=== PATIENT | male | born 1935 | race Caucasian/White ===

== ENCOUNTER → 2020-04-01 10:28 | Outpatient (BNVA) | payer MEDICARE, SELFPAY | PROVIDERS: PCP Internal Medicine Medical Oncology; Visit Provider Surgery Vascular Surgery | DX: I83.12 Varicose veins of left lower extremity with inflammation (principal) | CPT/HCPCS: 36482 ==

== ENCOUNTER 2020-04-04 12:22 | Outpatient (REF) | payer MEDICARE, SELFPAY ==
--- NOTE | 2020-04-04 | US_ITS ---
EXAMINATION: ULTRASOUND VENOUS DUPLEX LOWER EXTREMITY LEFT CLINICAL INFORMATION: Left leg pain and swelling status post Venaseal placement. COMPARISON: Bilateral venous study dated 02/29/2020. TECHNIQUE: Multiple 2-D grayscale and duplex Doppler ultrasound images of the veins of the left lower extremity were obtained. FINDINGS: Venaseal seen within the proximal aspect of the left greater saphenous vein approximately 2.8 cm from the saphenofemoral junction. There is no evidence for deep venous thrombosis in the left common femoral, profunda femoral, femoral, popliteal, peroneal and posterior tibial veins. There is no popliteal cyst. The subcutaneous soft tissues are unremarkable. IMPRESSION: 1. Venaseal seen in the proximal aspect of the left greater saphenous vein approximately 2.8 cm from the saphenofemoral junction. 2. No evidence for deep venous thrombosis in the visualized veins of the left lower cavity.
== END 2020-04-04 12:23 | disposition home or self-care (01) ==
LOC: HO.US 12:22
PROVIDERS: PCP Internal Medicine Medical Oncology; Visit Provider Surgery Vascular Surgery
DX: M79.605 Pain in left leg (principal); M79.89 Other specified soft tissue disorders; Z98.890 Other specified postprocedural states
CPT/HCPCS: 93971

== ENCOUNTER → 2020-04-21 10:42 | Outpatient (BNVA) | payer MEDICARE, SELFPAY | PROVIDERS: PCP Internal Medicine Medical Oncology; Visit Provider Surgery Vascular Surgery | DX: I83.11 Varicose veins of right lower extremity with inflammation (principal) | CPT/HCPCS: 99213 ==

== ENCOUNTER → 2020-05-20 07:44 | Outpatient (BNVA) | payer MEDICARE, SELFPAY | PROVIDERS: PCP Internal Medicine Medical Oncology; Referring Provider Internal Medicine Medical Oncology; Visit Provider Surgery Vascular Surgery | DX: I83.11 Varicose veins of right lower extremity with inflammation (principal) | CPT/HCPCS: 36482 ==

== ENCOUNTER 2020-05-23 08:32 | Outpatient (REF) | payer MEDICARE, SELFPAY ==
--- NOTE | 2020-05-23 | US_ITS ---
EXAMINATION: US VENOUS ULTRASOUND WITH DOPPLER LOWER EXTREMITY, RIGHT CLINICAL INFORMATION: Pain and swelling. Post venoseal procedure. COMPARISON: Previous exam most recent April [id number] TECHNIQUE: Ultrasound of the deep veins is performed from the hip to the calf with compression sonography and color and pulse Doppler assessment. Spectral analysis with color-flow imaging is performed. FINDINGS: There is normal venous compression and respiratory variation and augmented flow. The visualized common femoral vein, superficial femoral vein, profunda femoral vein, popliteal vein, and the trifurcation region shows no evidence of deep venous thrombosis. There is no significant popliteal fossa cyst. There is echogenic material seen in the right greater saphenous vein compatible with previous venoseal procedure. This is 2.9 cm from the saphenofemoral junction. This is similar to previous exam. US/US venous duplex LE RT IMPRESSION: No DVT demonstrated in the right lower extremity.
[2020-05-23 10:28] LABS: MANUAL DIFF FLAG NO
[2020-05-23 10:45] LABS: Basophils Absolute Auto 0.1 X10*3/uL (0.0-0.2); Basophils Percent Auto 0.5 % (0-2); Eosinophils Absolute Auto 0.5 X10*3/uL (0.0-0.4); Eosinophils Percent Auto 4.8 % (0-4); Hematocrit 35.9 % (42-52); Hemoglobin 11.8 g/dl (14.0-18.0); Imm Gran Abs Auto 0.03 X10*3/uL (0.00-0.03); Imm Gran Pct Auto 0.3 % (0.0-0.4); Lymphocytes Percent Auto 20.7 % (20-40); Mean Corpuscular HGB Conc 32.9 g/dl (31.0-36.0); Mean Corpuscular Hemoglobin 30.9 pg (27.0-33.0); Mean Platelet Volume 9.9 fL (9.4-12.4); Monocytes Percent Auto 10.5 % (2-11); Neutrophils Absolute Auto 6.1 X10*3/uL (2.0-8.3); Neutrophils Percent Auto 63.2 % (45-73); Platelet Count 330 X10*3/uL (160-400); Red Blood Count 3.82 X10*6/uL (4.60-5.80); Red Cell Distribution Width 13.5 % (11.0-16.0); White Blood Count 9.7 X10*3/uL (4.8-10.8)
[2020-05-23 10:56] LABS: Estimated Average Glucose 140 mg/dL; Hemoglobin A1C 145.0392 umol/L; Hemoglobin A1c % 6.5 %
[2020-05-23 10:57] LABS: Alanine Aminotransferase 13 U/L (0-40); Albumin Level 3.9 g/dL (3.5-5.0); Alkaline Phosphatase 79 U/L (39-117); Anion Gap 14 (12-20); Aspartate Amino Transferase 13 U/L (5-37); Bilirubin Total 0.5 mg/dL (0.0-1.0); Blood Urea Nitrogen 28 mg/dL (9-16); Calcium 8.7 mg/dL (8.4-10.2); Carbon Dioxide 24 mmol/L (22-29); Chloride 104 mmol/L (96-108); Cholesterol 126 mg/dL; Estimated Glomerular Filt Rate 50; Glucose Fasting 147 mg/dL (60-99); HDL Cholesterol 32 mg/dL; LDL Cholesterol Calculated 81 mg/dl; Potassium 4.7 mmol/l (3.3-5.1); Sodium 137 mmol/L (135-145); Total Protein 6.5 g/dL (6.5-8.0); Triglycerides 69 mg/dL
[2020-05-23 11:23] LABS: Prostate Specific Antigen 0.33 ng/mL (<0.05-4.0)
== END 2020-05-23 08:33 | disposition home or self-care (01) ==
LOC: HO.US 08:32
PROVIDERS: PCP Internal Medicine Medical Oncology; Visit Provider Surgery Vascular Surgery
DX: M79.661 Pain in right lower leg (principal)
CPT/HCPCS: 36415; 80053; 80061; 83036; 84153; 85025; 93971

== ENCOUNTER → 2020-06-02 08:55 | Outpatient (BNVA) | payer MEDICARE, SELFPAY | PROVIDERS: PCP Internal Medicine Medical Oncology; Referring Provider Internal Medicine Medical Oncology; Visit Provider Surgery Vascular Surgery | DX: I83.11 Varicose veins of right lower extremity with inflammation (principal) | CPT/HCPCS: 99212 ==

== ENCOUNTER 2020-08-15 07:49 | Outpatient (REF) | payer MEDICARE, SELFPAY ==
[2020-08-15 08:21] LABS: MANUAL DIFF FLAG NO
[2020-08-15 08:36] LABS: Basophils Percent Auto 0.3 % (0-2); Eosinophils Absolute Auto 0.6 X10*3/uL (0.0-0.4); Eosinophils Percent Auto 6.3 % (0-4); Hematocrit 37.4 % (42-52); Hemoglobin 12.2 g/dl (14.0-18.0); Imm Gran Abs Auto 0.03 X10*3/uL (0.00-0.03); Imm Gran Pct Auto 0.3 % (0.0-0.4); Lymphocytes Absolute Auto 2.3 X10*3/uL (1.2-4.9); Lymphocytes Percent Auto 24.8 % (20-40); Mean Corpuscular HGB Conc 32.6 g/dl (31.0-36.0); Mean Corpuscular Volume 94.9 fL (80-98); Mean Platelet Volume 9.9 fL (9.4-12.4); Monocytes Absolute Auto 0.8 X10*3/uL (0.1-1.2); Monocytes Percent Auto 8.6 % (2-11); Neutrophils Absolute Auto 5.6 X10*3/uL (2.0-8.3); Neutrophils Percent Auto 59.7 % (45-73); Platelet Count 316 X10*3/uL (160-400); Red Blood Count 3.94 X10*6/uL (4.60-5.80); Red Cell Distribution Width 13.8 % (11.0-16.0); White Blood Count 9.4 X10*3/uL (4.8-10.8)
[2020-08-15 08:58] LABS: Alanine Aminotransferase 14 U/L (0-40); Albumin Level 3.9 g/dL (3.5-5.0); Alkaline Phosphatase 75 U/L (39-117); Anion Gap 12 (12-20); Aspartate Amino Transferase 12 U/L (5-37); Bilirubin Total 0.6 mg/dL (0.0-1.0); Blood Urea Nitrogen 36 mg/dL (9-16); Calcium 9.3 mg/dL (8.4-10.2); Carbon Dioxide 26 mmol/L (22-29); Chloride 107 mmol/L (96-108); Cholesterol 131 mg/dL; Estimated Glomerular Filt Rate 47; Glucose Fasting 158 mg/dL (60-99); HDL Cholesterol 35 mg/dL; LDL Cholesterol Calculated 80 mg/dl; Potassium 5.5 mmol/L (3.3-5.1); Sodium 139 mmol/L (135-145); Total Protein 6.4 g/dL (6.5-8.0); Triglycerides 84 mg/dL
[2020-08-15 09:04] LABS: Estimated Average Glucose 134 mg/dL; Hemoglobin A1c % 6.3 %
== END 2020-08-15 07:50 | disposition home or self-care (01) ==
LOC: HO.LAB 07:49
PROVIDERS: Visit Provider Internal Medicine Medical Oncology
DX: I10 Essential (primary) hypertension (principal); E11.10 Type 2 diabetes mellitus with ketoacidosis without coma; E78.2 Mixed hyperlipidemia
CPT/HCPCS: 36415; 80053; 80061; 83036; 85025

== ENCOUNTER 2020-11-14 07:15 | Outpatient (REF) | payer MEDICARE, SELFPAY ==
[2020-11-14 08:39] LABS: MANUAL DIFF FLAG NO
[2020-11-14 08:50] LABS: Basophils Absolute Auto 0.1 X10*3/uL (0.0-0.2); Basophils Percent Auto 0.5 % (0-2); Eosinophils Absolute Auto 0.7 X10*3/uL (0.0-0.4); Eosinophils Percent Auto 7.5 % (0-4); Hematocrit 36.5 % (42-52); Hemoglobin 11.8 g/dl (14.0-18.0); Imm Gran Abs Auto 0.05 X10*3/uL (0.00-0.03); Imm Gran Pct Auto 0.5 % (0.0-0.4); Lymphocytes Absolute Auto 2.4 X10*3/uL (1.2-4.9); Lymphocytes Percent Auto 24.6 % (20-40); Mean Corpuscular HGB Conc 32.3 g/dl (31.0-36.0); Mean Corpuscular Hemoglobin 30.9 pg (27.0-33.0); Mean Corpuscular Volume 95.5 fL (80-98); Mean Platelet Volume 9.8 fL (9.4-12.4); Monocytes Absolute Auto 0.9 X10*3/uL (0.1-1.2); Monocytes Percent Auto 9.2 % (2-11); Neutrophils Absolute Auto 5.6 X10*3/uL (2.0-8.3); Neutrophils Percent Auto 57.7 % (45-73); Platelet Count 359 X10*3/uL (160-400); Red Blood Count 3.82 X10*6/uL (4.60-5.80); Red Cell Distribution Width 13.5 % (11.0-16.0); White Blood Count 9.8 X10*3/uL (4.8-10.8)
[2020-11-14 09:03] LABS: Alanine Aminotransferase 16 U/L (0-40); Albumin Level 3.9 g/dL (3.5-5.0); Alkaline Phosphatase 81 U/L (39-117); Anion Gap 14 (12-20); Aspartate Amino Transferase 14 U/L (5-37); Bilirubin Total 0.3 mg/dL (0.0-1.0); Blood Urea Nitrogen 40 mg/dL (9-16); Carbon Dioxide 22 mmol/L (22-29); Chloride 107 mmol/L (96-108); Cholesterol 134 mg/dL; Estimated Glomerular Filt Rate 44; Glucose Fasting 151 mg/dL (60-99); HDL Cholesterol 35 mg/dL; LDL Cholesterol Calculated 85 mg/dl; Potassium 5.3 mmol/L (3.3-5.1); Sodium 138 mmol/L (135-145); Total Protein 6.4 g/dL (6.5-8.0); Triglycerides 70 mg/dL
[2020-11-14 09:24] LABS: Prostate Specific Antigen 0.33 ng/mL (<0.05-4.0)
[2020-11-14 09:28] LABS: Estimated Average Glucose 140 mg/dL; Hemoglobin A1C 150.2667 umol/L; Hemoglobin A1c % 6.5 %
== END 2020-11-14 07:16 | disposition home or self-care (01) ==
LOC: HO.LAB 07:15
PROVIDERS: PCP Internal Medicine Medical Oncology; Visit Provider Internal Medicine Medical Oncology
DX: I10 Essential (primary) hypertension (principal); E11.10 Type 2 diabetes mellitus with ketoacidosis without coma; E78.2 Mixed hyperlipidemia; N40.0 Benign prostatic hyperplasia without lower urinary tract symptoms
CPT/HCPCS: 36415; 80053; 80061; 83036; 84153; 85025

== ENCOUNTER 2021-02-13 07:02 | Outpatient (REF) | payer MEDICARE, SELFPAY ==
[2021-02-13 09:03] LABS: MANUAL DIFF FLAG NO
[2021-02-13 09:05] LABS: Basophils Absolute Auto 0.1 X10*3/uL (0.0-0.2); Basophils Percent Auto 0.5 % (0-2); Eosinophils Absolute Auto 0.8 X10*3/uL (0.0-0.4); Eosinophils Percent Auto 7.5 % (0-4); Hematocrit 35.2 % (42-52); Hemoglobin 11.4 g/dl (14.0-18.0); Imm Gran Abs Auto 0.07 X10*3/uL (0.00-0.03); Imm Gran Pct Auto 0.7 % (0.0-0.4); Lymphocytes Absolute Auto 2.5 X10*3/uL (1.2-4.9); Lymphocytes Percent Auto 23.7 % (20-40); Mean Corpuscular HGB Conc 32.4 g/dl (31.0-36.0); Mean Corpuscular Hemoglobin 30.9 pg (27.0-33.0); Mean Corpuscular Volume 95.4 fL (80-98); Mean Platelet Volume 9.9 fL (9.4-12.4); Monocytes Absolute Auto 0.9 X10*3/uL (0.1-1.2); Monocytes Percent Auto 8.2 % (2-11); Neutrophils Absolute Auto 6.2 X10*3/uL (2.0-8.3); Neutrophils Percent Auto 59.4 % (45-73); Platelet Count 372 X10*3/uL (160-400); Red Blood Count 3.69 X10*6/uL (4.60-5.80); Red Cell Distribution Width 13.9 % (11.0-16.0); White Blood Count 10.4 X10*3/uL (4.8-10.8)
[2021-02-13 09:12] LABS: Estimated Average Glucose 137 mg/dL; Hemoglobin A1c % 6.4 %
[2021-02-13 09:34] LABS: Creatinine Urine 89.36 mg/dL
[2021-02-13 09:40] LABS: Alanine Aminotransferase 15 U/L (0-40); Albumin Level 3.9 g/dL (3.5-5.0); Alkaline Phosphatase 78 U/L (39-117); Anion Gap 16 (12-20); Aspartate Amino Transferase 13 U/L (5-37); Bilirubin Total 0.2 mg/dL (0.0-1.0); Blood Urea Nitrogen 44 mg/dL (9-16); Calcium 9.5 mg/dL (8.4-10.2); Carbon Dioxide 21 mmol/L (22-29); Chloride 107 mmol/L (96-108); Cholesterol 130 mg/dL; Estimated Glomerular Filt Rate 44; Glucose Fasting 143 mg/dL (60-99); HDL Cholesterol 34 mg/dL; LDL Cholesterol Calculated 81 mg/dl; Potassium 5.2 mmol/L (3.3-5.1); Sodium 139 mmol/L (135-145); Total Protein 6.4 g/dL (6.5-8.0); Triglycerides 78 mg/dL
[2021-02-13 09:42] LABS: Prostate Specific Antigen 0.67 ng/mL (<0.05-4.0)
== END 2021-02-13 07:03 | disposition home or self-care (01) ==
LOC: HO.LAB 07:02
PROVIDERS: PCP Internal Medicine Medical Oncology; Visit Provider Internal Medicine Medical Oncology
DX: I10 Essential (primary) hypertension (principal); E78.2 Mixed hyperlipidemia; N40.0 Benign prostatic hyperplasia without lower urinary tract symptoms; E11.42 Type 2 diabetes mellitus with diabetic polyneuropathy
CPT/HCPCS: 36415; 80053; 80061; 82043; 83036; 84153; 85025

== ENCOUNTER 2021-05-15 07:19 | Outpatient (REF) | payer MEDICARE, SELFPAY ==
[2021-05-15 07:39] LABS: MANUAL DIFF FLAG NO
[2021-05-15 08:06] LABS: Basophils Absolute Auto 0.1 X10*3/uL (0.0-0.2); Basophils Percent Auto 0.7 % (0-2); Eosinophils Absolute Auto 0.6 X10*3/uL (0.0-0.4); Eosinophils Percent Auto 6.3 % (0-4); Hematocrit 35.1 % (42.0-52.0); Hemoglobin 11.5 g/dl (14.0-18.0); Imm Gran Abs Auto 0.04 X10*3/uL (0.00-0.03); Imm Gran Pct Auto 0.4 % (0.0-0.4); Lymphocytes Absolute Auto 2.4 X10*3/uL (1.2-4.9); Lymphocytes Percent Auto 25.8 % (20-40); Mean Corpuscular HGB Conc 32.8 g/dl (31.0-36.0); Mean Corpuscular Hemoglobin 31.1 pg (27.0-33.0); Mean Corpuscular Volume 94.9 fL (80.0-98.0); Mean Platelet Volume 9.6 fL (9.4-12.4); Monocytes Percent Auto 10.1 % (2-11); Neutrophils Absolute Auto 5.4 x10*3/uL (2.0-8.3); Neutrophils Percent Auto 56.7 % (45-73); Platelet Count 324 X10*3/uL (160-400); Red Cell Distribution Width 13.9 % (11.0-16.0); White Blood Count 9.5 X10*3/uL (4.8-10.8)
[2021-05-15 08:26] LABS: Estimated Average Glucose 137 mg/dL; Hemoglobin A1c % 6.4 %
[2021-05-15 08:29] LABS: Alanine Aminotransferase 14 U/L (0-40); Albumin Level 3.8 g/dL (3.5-5.0); Alkaline Phosphatase 76 U/L (39-117); Anion Gap 12 (12-20); Aspartate Amino Transferase 14 U/L (5-37); Bilirubin Total 0.3 mg/dL (0.0-1.0); Blood Urea Nitrogen 38 mg/dL (9-16); Carbon Dioxide 24 mmol/L (22-29); Chloride 108 mmol/L (96-108); Cholesterol 133 mg/dL; Estimated Glomerular Filt Rate 41; Glucose Fasting 157 mg/dL (60-99); HDL Cholesterol 35 mg/dL; LDL Cholesterol Calculated 85 mg/dl; Sodium 139 mmol/L (135-145); Total Protein 6.2 g/dL (6.5-8.0); Triglycerides 65 mg/dL
[2021-05-15 09:05] LABS: Creatinine Urine 102.16 mg/dL
[2021-05-15 09:32] LABS: Microalbum/Creatinine Ratio Ur 607.8 ug/mg cr
== END 2021-05-15 07:20 | disposition home or self-care (01) ==
LOC: HO.LAB 07:19
PROVIDERS: PCP Internal Medicine Medical Oncology; Visit Provider Internal Medicine Medical Oncology
DX: E11.9 Type 2 diabetes mellitus without complications (principal); E78.2 Mixed hyperlipidemia
CPT/HCPCS: 36415; 80053; 80061; 82043; 83036; 85025

== ENCOUNTER 2021-06-14 07:02 | Inpatient (IN) | payer MEDICARE, SELFPAY ==
--- NOTE | ~2021-06-14 | NM_ITS ---
Myocardial perfusion study Indication: Acute coronary syndrome to evaluate for myocardial ischemia Technique: The patient was brought in for a Lexiscan perfusion study on 06/15/2021. Patient performed low-level exercise and was injected 0.4 mg of Lexiscan intravenously. Within a minute of injection, 40 mCi of sestamibi was given intravenously. Images were obtained using the SPECT gamma camera interlaced with the gating device. Images were obtained in supine position. Resting perfusion study was performed on 06/16/2021. Patient was administered 40 mCi of sestamibi intravenously at rest. Images were then obtained in supine position. Images obtained with and without CT attenuation. Total DLP 99 mGy-cm. Images were processed with the software and compared side to side in short axis, horizontal long axis and vertical long axis views. Findings: The stress perfusion study showed non attenuated images show moderately reduced uptake in the inferior wall of the LV myocardium. Remainder of the LV myocardium is normally perfused. Attenuation corrected images show minimally reduced uptake in the apex of the LV myocardium. The gated study shows normal LV systolic function with calculated LVEF of 66%. LV cavity is normal size. The gated study shows normal systolic wall thickening and contraction of segments. Resting study shows non attenuated images show minimal reversibility of the inferior wall. Attenuation corrected images show no changes compared to stress perfusion study. Gating at rest reveals normal systolic wall motion with ejection fraction at 67%. The findings are consistent with no clear evidence of severe ischemia. Equivocal finding for inferior wall which may be diaphragmatic attenuation.. NM/NM brooke perf SPECT rest & str Impression: 1. Myocardial perfusion imaging study shows equivocal for minimal inferior ischemia. Otherwise normal study 2. Gated LVEF is 66% 3. Transient ischemic dilatation not present EKG is nondiagnostic for ischemia
--- NOTE | ~2021-06-14 | XR_ITS ---
EXAMINATION: XR CHEST CLINICAL INFORMATION: Chest pain COMPARISON: Earlier on same day and February 09, 2020 TECHNIQUE: AP portable view of the chest was obtained. FINDINGS: There are changes of diminished density within the upper lobes bilaterally consistent with emphysematous change. There are some mildly increased interstitial markings present within the mid and lower lobes. Heart normal size. No evidence of pulmonary edema. No pneumothorax or significant pleural effusion. There appears to be some left base atelectasis. XR/XR chest 1V IMPRESSION: COPD. No significant acute parenchymal disease appreciated. Probable mild left lower lobe disease. Cannot rule out small effusion.
--- NOTE | ~2021-06-14 | NM_ITS ---
EXAMINATION: NM LUNG IMAGE PERFUSION CLINICAL INFORMATION: Chest pain, elevated D dimer. Emphysema. COMPARISON: None TECHNIQUE: Following intravenous administration of 4 mCi of 99m Tc MAA, imaging of both lungs were obtained in multiple projections. FINDINGS: On multiple images obtained during perfusion there are no subsegmental, segmental or nonsegmental defects seen.. Ventilation study was not performed. NM/NM pul perfusion IMPRESSION: Normal perfusion scan. Ventilation study was not performed.
--- NOTE | 2021-06-14 07:16 | ED_ITS ---
HPI - Chest Pain General Chief Complaint: Chest Pain Stated Complaint: LEFT CHEST PAIN Time Seen by Provider: 06/14/21 07:16 Source: patient and EMS Mode of arrival: EMS Limitations: no limitations History of Present Illness MD complaint: chest pain Onset (ago): day(s) (2) Timing of current episode: now resolved Prior episodes: No Onset: during rest and during exertion Pain location: left chest Pain radiation: none Severity: moderate Quality: sharp Relieving factors: nitroglycerin Exacerbating factors: exertion Associated symptoms: dyspnea Treatment prior to arrival: aspirin and nitroglycerin (pain resolved afterwards) Related Data Home Medications Medication Instructions Recorded Confirmed ipratropium 20 mcg-albuterol 100 1 puff INHALATION Q6H 04/21/20 mcg/actuation mist for inhalation (Combivent Respimat) losartan 50 mg tablet 50 mg PO DAILY 04/21/20 omeprazole 40 mg capsule,delayed 40 mg PO DAILY 04/21/20 release simvastatin 40 mg/5 mL (8 mg/mL) 40 mg PO DAILY 04/21/20 oral suspension valsartan 40 mg tablet 40 mg PO BID 04/21/20 Allergies Allergy/AdvReac Type Severity Reaction Status Date / Time No Known Allergies Allergy Verified 06/02/20 09:07 Review of Systems Review of Systems: Constitutional : No Weight loss, No Fever, No Chills ENT/Mouth : No sore throat, No Rhinorrhea Eyes: No Eye Pain, No Swelling Cardiovascular : pos Chest Pain, pos SOB, pos Dyspnea on Exertion, No Orthopnea, No Edema, No Palpitations Respiratory : No Cough, No Sputum Gastrointestinal : no Nausea, No Vomiting, No Diarrhea, No abdominal Pain, No Hematochezia, No Melena, pos constipation Genitourinary : No Dysuria, No Urinary Frequency Musculoskeletal : No joint pain, No Myalgias, No Joint Swelling Skin : No Skin Lesions, No rash Neuro : No Weakness, No Numbness, No Dizziness, No Headache Psych : No Anxiety/Panic, No Depression Heme/Lymph: No Bruising, No Lymphadenopathy Endocrine : No Polyuria, No Polydipsia All other systems reviewed and are negative [facility] Past Medical History Medical History Arthritis Diabetes Emphysema of lung Hypertension Surgical History History of knee replacement (09/30/12) Family History Family History Father No problems noted. Mother Cancer Brother No problems noted. Daughter No problems noted. Social History Social History Patient Tobacco Use Status: Former Tobacco user Use of substances other than those prescribed or required for medical reasons: No Advance Directives: No Advance Directives Information Provided: No Physical Exam Vital Signs: Vital Signs: Last Vital Signs Temp 98.2 F 06/14/21 07:25 Pulse 102 H 06/14/21 07:25 Resp 17 06/14/21 07:25 BP 143/60 H 06/14/21 07:25 Pulse Ox 96 06/14/21 07:25 BMI result Body Mass Index 31.6 Appearance: Alert. Oriented X3. No acute distress. Eyes: Pupils equal, round and reactive to light. ENT: Pharynx normal. Neck: Normal inspection. Neck supple. CVS: tachcyardic heart rate and rhythm. Pulses normal. Respiratory: No respiratory distress. Breath sounds normal. Abdomen: Soft and non-tender. Skin: Skin warm and dry. Normal skin color. Normal skin turgor. Extremities: No lower extremity edema. No calf ttp darkened venous stasis skin changes on both legs Neuro: Oriented X 3. No motor deficit. No sensory deficit. Course Course Course Narrative: repeat trop flat notified cardiology of presentation MDM - Chest Pain MDM Narrative Medical decision making narrative: 86 yo male with HTN, DM, emphysema here with c/o L sided sharp chest pain starting 2 days ago but much wrose this AM around 4 - it resolved with nitro and ASA on the way in with EMS. At this time labs, troponin, ddimer, EKG, CXR ordered. He is pain free now. The pain was related exertion. Denies any prior cardiac workup. Dispo per results and findings. Lab Data Result diagrams: 06/14/21 07:37 06/14/21 07:37 Labs: Lab Results 06/14/21 06/14/21 06/14/21 Range/Units 07:37 07:37 07:37 WBC 10.4 (4.8-10.8) X10*3/uL RBC 3.29 L (4.60-5.80) X10*6/uL Hgb 10.2 L (14.0-18.0) g/dl Hct 31.6 L (42.0-52.0) % MCV 96.0 (80.0-98.0) fL MCH 31.0 (27.0-33.0) pg MCHC 32.3 (31.0-36.0) g/dl RDW 14.0 (11.0-16.0) % Plt Count 315 (160-400) X10*3/uL MPV 9.1 L (9.4-12.4) fL Immature Gran % (Auto) 0.7 H (0.0-0.4) % Neut % (Auto) 65.8 (45-73) % Lymph % (Auto) 16.7 L (20-40) % [place] % (Auto) 9.9 (2-11) % Eos % (Auto) 6.5 H (0-4) % Baso % (Auto) 0.4 (0-2) % Lymph # (Auto) 1.7 (1.2-4.9) X10*3/uL [place] # (Auto) 1.0 (0.1-1.2) X10*3/uL Eos # (Auto) 0.7 H (0.0-0.4) X10*3/uL Baso # (Auto) 0.0 (0.0-0.2) X10*3/uL Abs Immat Gran (auto) 0.07 H (0.00-0.03) X10*3/uL Absolute Neuts (auto) 6.8 (2.0-8.3) x10*3/uL Absolute Nucleated RBC 0.000 (0.0-0.012) X10*3/uL Nucleated RBC % (auto) 0.0 (0.0-0.2) /100WBC D-Dimer High Sensitivty 809 NG/ML Sodium 136 (135-145) mmol/L Potassium 5.0 (3.3-5.1) mmol/L Chloride 108 (96-108) mmol/L Carbon Dioxide 20 L (22-29) mmol/L Anion Gap 13 (12-20) BUN 40 H (9-16) mg/dL Creatinine 1.64 H (0.5-1.4) mg/dL Estim Creat Clear Calc 41.8 Estimated GFR 40 Random Glucose 189 H (60-115) mg/dL Calcium 8.6 (8.4-10.2) mg/dL Magnesium 2.3 (1.6-2.6) mg/dL Total Bilirubin 0.4 (0.0-1.0) mg/dL Direct Bilirubin 0.2 (0.0-0.5) mg/dL AST 12 (5-37) U/L ALT 12 (0-40) U/L Alkaline Phosphatase 73 (39-117) U/L Troponin I High Sens (<3.5-35.0) ng/L Total Protein 5.8 L (6.5-8.0) g/dL Albumin 3.4 L (3.5-5.0) g/dL Lipase 16 (8-78) U/L COVID-19 (AZAEL) (Negative) COVID-19 Clin Com 06/14/21 06/14/21 06/14/21 Range/Units 07:37 07:38 10:36 WBC (4.8-10.8) X10*3/uL RBC (4.60-5.80) X10*6/uL Hgb (14.0-18.0) g/dl Hct (42.0-52.0) % MCV (80.0-98.0) fL MCH (27.0-33.0) pg MCHC (31.0-36.0) g/dl RDW (11.0-16.0) % Plt Count (160-400) X10*3/uL MPV (9.4-12.4) fL Immature Gran % (Auto) (0.0-0.4) % Neut % (Auto) (45-73) % Lymph % (Auto) (20-40) % [place] % (Auto) (2-11) % Eos % (Auto) (0-4) % Baso % (Auto) (0-2) % Lymph # (Auto) (1.2-4.9) X10*3/uL [place] # (Auto) (0.1-1.2) X10*3/uL Eos # (Auto) (0.0-0.4) X10*3/uL Baso # (Auto) (0.0-0.2) X10*3/uL Abs Immat Gran (auto) (0.00-0.03) X10*3/uL Absolute Neuts (auto) (2.0-8.3) x10*3/uL Absolute Nucleated RBC (0.0-0.012) X10*3/uL Nucleated RBC % (auto) (0.0-0.2) /100WBC D-Dimer High Sensitivty NG/ML Sodium (135-145) mmol/L Potassium (3.3-5.1) mmol/L Chloride (96-108) mmol/L Carbon Dioxide (22-29) mmol/L Anion Gap (12-20) BUN (9-16) mg/dL Creatinine (0.5-1.4) mg/dL Estim Creat Clear Calc Estimated GFR Random Glucose (60-115) mg/dL Calcium (8.4-10.2) mg/dL Magnesium (1.6-2.6) mg/dL Total Bilirubin (0.0-1.0) mg/dL Direct Bilirubin (0.0-0.5) mg/dL AST (5-37) U/L ALT (0-40) U/L Alkaline Phosphatase (39-117) U/L Troponin I High Sens 147.7 H* 114.6 H* (<3.5-35.0) ng/L Total Protein (6.5-8.0) g/dL Albumin (3.5-5.0) g/dL Lipase (8-78) U/L COVID-19 (AZAEL) Negative (Negative) COVID-19 Clin Com See Note ECG Data ECG #1: Attestation: I personally reviewed and interpreted this ECG as follows: ECG interpretation date: 06/14/21 ECG interpretation time: 07:51 Interpretation: Rate: 97 Rhythm: NSR [place]: left Normal P waves. Normal REFUGIO. RBBB ST T wave : normal no CHAPIS qTC: normal prior studies: no acute ischemia no change from Jan 2020 The study has been interpreted contemporaneously by me. . Scores Heart Score History: -2- highly suspicious ECG: -0- normal Age: -2- > or = 65 Risk factory: -1- 1 or 2 risk factors Troponin: -1- >1 - <3x normal limit Score: 6 Risk: 16.6% Discharge Plan Discharge Clinical Impression: Elevated troponin Chest pain Qualifiers: Chest pain type: unspecified Qualified Code(s): R07.9 - Chest pain, unspecified Patient Disposition: Admitted As Inpatient
--- NOTE | 2021-06-14 07:23 | ECG_ITS ---
Test Reason : chest pain Blood Pressure : / mmHG Vent. Rate : 097 BPM Atrial Rate : 097 BPM P-R Int : 208 ms QRS Dur : 132 ms QT Int : 378 ms P-R-T Axes : 047 -65 044 degrees QTc Int : 480 ms Normal sinus rhythm Right bundle branch block Left anterior fascicular block Bifascicular block Abnormal ECG When compared with ECG of 09-FEB-2020 09:01, No significant change was found Referred By: Tayla Simeon Electronically Signed By:NEEL PANDEY MD
[2021-06-14 07:25] VITALS: BP 124/62; BP 143/60; PULSE 102; PULSE 104; RESP 17; TEMP 36.8; O2SAT 96; O2SAT 99; BMI 31.6
[2021-06-14 07:43] LABS: Basophils Percent Auto 0.4 % (0-2); Eosinophils Absolute Auto 0.7 X10*3/uL (0.0-0.4); Eosinophils Percent Auto 6.5 % (0-4); Hematocrit 31.6 % (42.0-52.0); Hemoglobin 10.2 g/dl (14.0-18.0); Imm Gran Abs Auto 0.07 X10*3/uL (0.00-0.03); Imm Gran Pct Auto 0.7 % (0.0-0.4); Lymphocytes Absolute Auto 1.7 X10*3/uL (1.2-4.9); Lymphocytes Percent Auto 16.7 % (20-40); MANUAL DIFF FLAG NO; Mean Corpuscular HGB Conc 32.3 g/dl (31.0-36.0); Mean Platelet Volume 9.1 fL (9.4-12.4); Monocytes Percent Auto 9.9 % (2-11); Neutrophils Absolute Auto 6.8 x10*3/uL (2.0-8.3); Neutrophils Percent Auto 65.8 % (45-73); Platelet Count 315 X10*3/uL (160-400); Red Blood Count 3.29 X10*6/uL (4.60-5.80); White Blood Count 10.4 X10*3/uL (4.8-10.8)
[2021-06-14 07:53] LABS: D Dimer High Sensitivity 809 NG/ML
[2021-06-14 07:58] LABS: COVID-19 Test Negative (Negative)
[2021-06-14 08:02] LABS: Alanine Aminotransferase 12 U/L (0-40); Albumin Level 3.4 g/dL (3.5-5.0); Alkaline Phosphatase 73 U/L (39-117); Anion Gap 13 (12-20); Aspartate Amino Transferase 12 U/L (5-37); Bilirubin Direct 0.2 mg/dL (0.0-0.5); Bilirubin Total 0.4 mg/dL (0.0-1.0); Blood Urea Nitrogen 40 mg/dL (9-16); Calcium 8.6 mg/dL (8.4-10.2); Carbon Dioxide 20 mmol/L (22-29); Chloride 108 mmol/L (96-108); Creatinine Clr Calc Pharmacy 41.8; Estimated Glomerular Filt Rate 40; Glucose Random 189 mg/dL (60-115); Lipase 16 U/L (8-78); Magnesium 2.3 mg/dL (1.6-2.6); Sodium 136 mmol/L (135-145); Total Protein 5.8 g/dL (6.5-8.0)
[2021-06-14 08:13] LABS: Troponin-I High Sensitivity 147.7 ng/L (<3.5-35.0)
[2021-06-14 11:11] LABS: Troponin-I High Sensitivity 114.6 ng/L (<3.5-35.0)
--- NOTE | 2021-06-14 12:07 | PHA.MEDREC ---
Pharmacy Consult ? Medication Reconciliation Pharmacy has completed the medication reconciliation. [facility] with patient
--- NOTE | 2021-06-14 12:10 | CA_ITS ---
Acquisition Time: 2021-06-15 09:50:57 Total Exercise Time: 00:02:00 Test Indications: Abnormal ECG Medications: SEE EMAR Protocol: LEXISCAN Max HR: 084 BPM 62% of Pred: 134 BPM Max BP: 156/070 mmHG Max Work Load: 1.0 METS Phamacological stress test with Lexiscan injection, while sitting and exercising his right arm, without anginal symptoms, with isolated PVC, with normotensive response to injection, with nondiagnostic EKG for ischemia. In recovery her reported feeling heaviness in his arms and legs which was treated with Aminophylline 75mg IVP to reverse Lexiscan with improvement in symptom. Nuclear images pending. Test reviewed with Dr Boone. Referred By: Jose A Boone Overread By: DEANNE GUTIERREZ
[2021-06-14 12:20] LABS: B Type Natriuretic Peptide 33 pg/mL (<100)
--- NOTE | 2021-06-14 12:20 | P.CONCA_ITS ---
History of Present Illness History of Present Illness Date of Service: 06/14/21 Requesting physician: Tayla Simeon Chief complaint: Acute coronary syndrome Narrative: I was requested to see Adi in cardiology consultation today for acute onset precordial chest discomfort starting this morning. He is accompanied by his daughter at bedside. Patient usual state of health this morning tell precordial chest pressure shortness of breath. 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 He subsequently decided go to the bathroom and had symptoms again at that time got concerned and call EMS, who on arrival given nitroglycerin with complete resolution symptoms. The symptoms have not completely resolved and remained free. Initial troponin was 140, subsequently down trending to 110. He has not had any similar symptoms in the past. He denies any symptoms of coronary artery disease or myocardial infarction the past. He does have prior history of hypertension, diabetes, hyperlipidemia and possible congestive heart failure. He has limited overall in activity level due to arthritis but as per his daughter he he lives independently and manages his own life. Denies any recent exertional chest pain. Denies orthopnea, PND, leg edema, lightheadedness, syncope, palpitations. Review of Systems Constitutional: Constitutional: Reports no additional constitutional complaints Eyes: Eyes: Reports no additional eye complaints Cardiovascular: Cardiovascular: Reports chest pain at rest, Denies rapid heart rate, Denies lightheadedness, Denies Loss of Consciousness, Denies palpitations and Reports dyspnea Respiratory: Respiratory: Reports no additional respiratory complaints and Reports dyspnea Gastrointestinal: Gastrointestinal: Reports no additional gastrointestinal complaints Genitourinary: Genitourinary: Reports no additional male genitourinary complaints Musculoskeletal: Musculoskeletal: Reports no additional musculoskeletal complaints Integumentary/Breasts: Skin/Breast: Reports system reviewed and no additional complaints, except as docu Neurologic: Reports system reviewed and no additional complaints, except as documented Psychiatric: Psychiatric: Reports no additional psychiatric complaints Endocrine: Endocrine: Reports no additional endocrine complaints and Denies palpitations Hematologic/Lymphatic: Hematologic/Lymphatic: Reports no additional hematologic/lymphatic complaints Allergic/Immunologic: Allergic/Immunologic: Reports no additional allergic/immunologic complaints [facility] Past Medical History Medical History Arthritis Diabetes Emphysema of lung Hypertension Family History Family History Father No problems noted. Mother Cancer Brother No problems noted. Daughter No problems noted. Surgical History Surgical History History of knee replacement (09/30/12) Social History Social History Patient Tobacco Use Status: Former Tobacco user Use of substances other than those prescribed or required for medical reasons: No Advance Directives: No Advance Directives Information Provided: No Meds Allergies Allergy/AdvReac Type Severity Reaction Status Date / Time No Known Allergies Allergy Verified 06/02/20 09:07 Active Medications: Current Medications Pharmacy Consult (Consult Rx Perform Med Rec) 1 each MISCELLANE ONCE PRN PRN Reason: Consult order Home Medications Medication Instructions Recorded Confirmed Last Taken Type aspirin 81 mg tablet,delayed 81 mg PO DAILY 06/14/21 06/14/21 06/13/21 History release diltiazem HCl 240 mg capsule,24 240 mg PO DAILY 06/14/21 06/14/21 06/13/21 History hr,extended release doxazosin 2 mg tablet 2 mg PO DAILY 06/14/21 06/14/21 06/13/21 History furosemide 20 mg tablet 20 mg PO DAILY 06/14/21 06/14/21 06/13/21 History ipratropium 20 mcg-albuterol 100 1 puff INHALATION Q6H PRN 06/14/21 06/14/21 06/13/21 History mcg/actuation mist for inhalation (Combivent Respimat) loratadine 10 mg tablet 10 mg PO DAILY 06/14/21 06/14/21 06/13/21 History metformin 500 mg tablet 500 mg PO BID 06/14/21 06/14/21 06/13/21 History mometasone (Asmanex Twisthaler) 1 inh INHALATION BID 06/14/21 06/14/21 06/13/21 History multivitamin 1 tab PO DAILY 06/14/21 06/14/21 06/13/21 History omeprazole 20 mg capsule,delayed 20 mg PO DAILY 06/14/21 06/14/21 06/13/21 History release psyllium 2 packet PO DAILY 06/14/21 06/14/21 06/13/21 History simvastatin 40 mg tablet 20 mg PO BEDTIME 06/14/21 06/14/21 06/13/21 History tramadol 50 mg tablet 50 mg PO BID PRN 06/14/21 06/14/21 Unknown History valsartan 320 mg tablet 320 mg PO DAILY 06/14/21 06/14/21 06/13/21 History zafirlukast 20 mg tablet 20 mg PO BID 06/14/21 06/14/21 06/13/21 History Physical Exam Vital Signs: Vital Signs: Last Vital Signs Temp 98.2 F 06/14/21 07:25 Pulse 102 H 06/14/21 07:25 Resp 17 06/14/21 07:25 BP 143/60 H 06/14/21 07:25 Pulse Ox 96 06/14/21 07:25 BMI result Body Mass Index 31.6 Const: General: cooperative, comfortable, no acute distress, alert and awake Nutritional Appearance: overweight Orientation/consciousness: patient oriented x3 HENMT: Head: Yes normocephalic and Yes atraumatic Neck: Neck: Yes trachea midline, Yes supple and Yes no JVD Resp: Effort & Inspection: normal respiratory effort Auscultation: clear to auscultation bilaterally GI: Auscultation: normal bowel sounds Skin: General skin exam: no rashes or lesions noted Neuro: General: patient oriented x3 and no focal motor deficits Extrem: General: Yes no clubbing, cyanosis or edema Objective Labs and Meds Result diagrams: 06/14/21 07:37 06/14/21 07:37 Lab results: Laboratory Results - last 24 hr 06/14/21 06/14/21 06/14/21 07:37 07:37 07:37 WBC 10.4 RBC 3.29 L Hgb 10.2 L Hct 31.6 L MCV 96.0 MCH 31.0 MCHC 32.3 RDW 14.0 Plt Count 315 MPV 9.1 L Immature Gran % (Auto) 0.7 H Neut % (Auto) 65.8 Lymph % (Auto) 16.7 L [place] % (Auto) 9.9 Eos % (Auto) 6.5 H Baso % (Auto) 0.4 Lymph # (Auto) 1.7 [place] # (Auto) 1.0 Eos # (Auto) 0.7 H Baso # (Auto) 0.0 Abs Immat Gran (auto) 0.07 H Absolute Neuts (auto) 6.8 Absolute Nucleated RBC 0.000 Nucleated RBC % (auto) 0.0 D-Dimer High Sensitivty 809 Sodium 136 Potassium 5.0 Chloride 108 Carbon Dioxide 20 L Anion Gap 13 BUN 40 H Creatinine 1.64 H Estim Creat Clear Calc 41.8 Estimated GFR 40 Random Glucose 189 H Calcium 8.6 Magnesium 2.3 Total Bilirubin 0.4 Direct Bilirubin 0.2 AST 12 ALT 12 Alkaline Phosphatase 73 Troponin I High Sens Total Protein 5.8 L Albumin 3.4 L Lipase 16 COVID-19 (AZAEL) COVID-19 Clin Com 06/14/21 06/14/21 06/14/21 07:37 07:38 10:36 WBC RBC Hgb Hct MCV MCH MCHC RDW Plt Count MPV Immature Gran % (Auto) Neut % (Auto) Lymph % (Auto) [place] % (Auto) Eos % (Auto) Baso % (Auto) Lymph # (Auto) [place] # (Auto) Eos # (Auto) Baso # (Auto) Abs Immat Gran (auto) Absolute Neuts (auto) Absolute Nucleated RBC Nucleated RBC % (auto) D-Dimer High Sensitivty Sodium Potassium Chloride Carbon Dioxide Anion Gap BUN Creatinine Estim Creat Clear Calc Estimated GFR Random Glucose Calcium Magnesium Total Bilirubin Direct Bilirubin AST ALT Alkaline Phosphatase Troponin I High Sens 147.7 H* 114.6 H* Total Protein Albumin Lipase COVID-19 (AZAEL) Negative COVID-19 Clin Com See Note EKG shows normal sinus rhythm with bifascicular block, unchanged from before Imaging Radiologist's impression: Impressions Chest X-Ray 06/14/21 07:59 IMPRESSION: COPD. No significant acute parenchymal disease appreciated. Probable mild left lower lobe disease. Cannot rule out small effusion. Pulmonary Perfusion Imaging 06/14/21 09:40 IMPRESSION: Normal perfusion scan. Ventilation study was not performed. Assessment and Plan (1) Acute coronary syndrome: Status: Acute Patient's findings are highly concerning for acute coronary syndrome. Patient is currently symptom-free. Multiple risk factors for coronary artery disease. Would treat him with Lovenox 1 milligram/kg subQ q.12 hours. Perform in patient myocardial perfusion imaging with resting perfusion study to be done today and stress tomorrow. Echocardiogram at bedside. Continue management of his acute coronary syndrome with aspirin, statins, metoprolol. Further treatment based on the findings of the test results. He is agreeable for all management options. Procedures Date of Service Date of Service: 06/14/21
--- NOTE | 2021-06-14 12:37 | PM.IMHP ---
History of Present Illness Date of Service: 06/14/21 Chief Complaint: Chest pain This is an 86 yo M with a PMH as outlined below who presents to [facility] ED after 2 epsidoes of left sided chest pain on the morning of admission. The patient reports that he was ambulating to bathroom earlier in the day when he noticed left-sided, sharp, non-radiating chest pain which last a few seconds and resolved on its own. He again noticed the same chest pain when he ambulated to the bathroom, but this did not improve and in fact it became worse so he called the paramedics. On route to the hospital, the patient was given aspirin and nitro. His chest pain has since resolved. He denies any prior such episodes. He denies any associated shortness of breath. He denies any prior known history of CAD, but he does endorse a history of CHF for which he is on lasix. He denies any prior cardiac catherization. Upon arrival to the ED, the patient's work up revealed an EKG with bisasicular block (unchanged from prior EKG). His HS troponin was elevated x 2, but flat. Given his typical symptoms, he will be admitted for the treatment of ACS. Review of Systems Review of Systems: negative except HPI [facility] Medical History Arthritis Diabetes Emphysema of lung Hypertension Family History Father No problems noted. Mother Cancer Brother No problems noted. Daughter No problems noted. Surgical History History of knee replacement (09/30/12) Social History (Updated 06/14/21 @ 12:48 by Eric Guzmán MD) Alcohol intake: former Patient Tobacco Use Status: Former Tobacco user Use of substances other than those prescribed or required for medical reasons: No Advance Directives: No Advance Directives Information Provided: No Meds Allergies Allergy/AdvReac Type Severity Reaction Status Date / Time No Known Allergies Allergy Verified 06/02/20 09:07 Active Medications: Current Medications Acetaminophen (Acetaminophen 325 Mg Tablet) 650 mg PO Q6H PRN PRN Reason: Pain, Mild (Pain Scale 1-3) Enoxaparin Sodium (Enoxaparin Sodium 100 Mg/Ml Syringe) 110 mg 1 mg/kg (110 mg) SUBCUT Q12H [facility] Stop: 06/15/21 00:31 Pharmacy Consult (Consult Rx Perform Med Rec) 1 each MISCELLANE ONCE PRN PRN Reason: Consult order Sodium Chloride (0.9 % Sodium Chloride Flush 3 Ml Syringe) 3 ml IVFLUSH QSHIFT [facility] Home Medications Medication Instructions Recorded Confirmed Last Taken Type aspirin 81 mg tablet,delayed 81 mg PO DAILY 06/14/21 06/14/21 06/13/21 History release diltiazem HCl 240 mg capsule,24 240 mg PO DAILY 06/14/21 06/14/21 06/13/21 History hr,extended release doxazosin 2 mg tablet 2 mg PO DAILY 06/14/21 06/14/21 06/13/21 History furosemide 20 mg tablet 20 mg PO DAILY 06/14/21 06/14/21 06/13/21 History ipratropium 20 mcg-albuterol 100 1 puff INHALATION Q6H PRN 06/14/21 06/14/21 06/13/21 History mcg/actuation mist for inhalation (Combivent Respimat) loratadine 10 mg tablet 10 mg PO DAILY 06/14/21 06/14/21 06/13/21 History metformin 500 mg tablet 500 mg PO BID 06/14/21 06/14/21 06/13/21 History mometasone (Asmanex Twisthaler) 1 inh INHALATION BID 06/14/21 06/14/21 06/13/21 History multivitamin 1 tab PO DAILY 06/14/21 06/14/21 06/13/21 History omeprazole 20 mg capsule,delayed 20 mg PO DAILY 06/14/21 06/14/21 06/13/21 History release psyllium 2 packet PO DAILY 06/14/21 06/14/21 06/13/21 History simvastatin 40 mg tablet 20 mg PO BEDTIME 06/14/21 06/14/21 06/13/21 History tramadol 50 mg tablet 50 mg PO BID PRN 06/14/21 06/14/21 Unknown History valsartan 320 mg tablet 320 mg PO DAILY 06/14/21 06/14/21 06/13/21 History zafirlukast 20 mg tablet 20 mg PO BID 06/14/21 06/14/21 06/13/21 History Physical Exam Vital Signs and Narrative: Vital Signs: Last Vital Signs Temp 98.2 F 06/14/21 07:25 Pulse 102 H 06/14/21 07:25 Resp 17 06/14/21 07:25 BP 143/60 H 06/14/21 07:25 Pulse Ox 96 06/14/21 07:25 BMI result Body Mass Index 31.6 Const: Other: Constitutional - Awake and Alert, No apparent distress Eyes - PERRLA, EOMI Cardiovascular - S1S2, RRR, No edema Respiratory - Normal lung expansion, Normal respiratory effort, No respiratory distress, CTA bilaterally Gastrointestinal - NT / ND; +BS; No rebound or guarding - No CVA tenderness Extremities - no calf tenderness bilaterally, no swelling Musculoskeletal - Normal inspection, normal ROM Skin - Warm/Dry Neurological - Alert & oriented x3, No focal deficit Psychological - Appropriate affect Results Labs CBC and Chem 7: 06/14/21 07:37 06/14/21 07:37 Labs: Laboratory Results - last 24 hr 06/14/21 06/14/21 06/14/21 07:37 07:37 07:37 MCV 96.0 MCH 31.0 MCHC 32.3 RDW 14.0 Plt Count 315 MPV 9.1 L Immature Gran % (Auto) 0.7 H Neut % (Auto) 65.8 Lymph % (Auto) 16.7 L [place] % (Auto) 9.9 Eos % (Auto) 6.5 H Baso % (Auto) 0.4 Lymph # (Auto) 1.7 [place] # (Auto) 1.0 Eos # (Auto) 0.7 H Baso # (Auto) 0.0 Abs Immat Gran (auto) 0.07 H Absolute Neuts (auto) 6.8 Absolute Nucleated RBC 0.000 Nucleated RBC % (auto) 0.0 D-Dimer High Sensitivty 809 Anion Gap 13 Estim Creat Clear Calc 41.8 Estimated GFR 40 Random Glucose 189 H Calcium 8.6 Magnesium 2.3 Total Bilirubin 0.4 Direct Bilirubin 0.2 AST 12 ALT 12 Alkaline Phosphatase 73 Troponin I High Sens B-Natriuretic Peptide Total Protein 5.8 L Albumin 3.4 L Lipase 16 COVID-19 ([facility]) COVID-19 Clin Com 06/14/21 06/14/21 06/14/21 07:37 07:38 10:36 MCV MCH MCHC RDW Plt Count MPV Immature Gran % (Auto) Neut % (Auto) Lymph % (Auto) [place] % (Auto) Eos % (Auto) Baso % (Auto) Lymph # (Auto) [place] # (Auto) Eos # (Auto) Baso # (Auto) Abs Immat Gran (auto) Absolute Neuts (auto) Absolute Nucleated RBC Nucleated RBC % (auto) D-Dimer High Sensitivty Anion Gap Estim Creat Clear Calc Estimated GFR Random Glucose Calcium Magnesium Total Bilirubin Direct Bilirubin AST ALT Alkaline Phosphatase Troponin I High Sens 147.7 H* 114.6 H* B-Natriuretic Peptide 33 Total Protein Albumin Lipase COVID-19 ([facility]) Negative COVID-19 Clin Com See Note Imaging Radiologist's Impressions: Impressions Chest X-Ray 06/14/21 07:59 IMPRESSION: COPD. No significant acute parenchymal disease appreciated. Probable mild left lower lobe disease. Cannot rule out small effusion. Pulmonary Perfusion Imaging 06/14/21 09:40 IMPRESSION: Normal perfusion scan. Ventilation study was not performed. Assessment and Plan (1) Acute coronary syndrome: Status: Acute This is an 86 yo M with multiple risk factors for CAD (Age, Sex, DM, HTN) who presents to the hospital with complaints of left-sided chest pain on the morning of admission. His presentation is worrisome for acute coronary syndrome. He will be admitted for further work up and treatment. 1. Acute Coronary syndrome Lovenox 1mg/kg BID, aspirin, statin (will change his simvastatin to lipitor 40), beta-iman (will switch his cardizem to metoprolol 25mg bid) 2d Echo Inpatient stress test Cardiology on the case 2. HTN continue baseline meds, change to metoprolol as above 3. Question CHF history per patient report check BNP 2d Echo as above 4. Asthma/COPD not in exacerbation continue his inhalers DNR/DNI Endorses his daughter as health care proxy Anticipate he will likely need 48 hours of treatment for his ACS. Quality Stroke Does the patient have a stroke diagnosis?: No VTE Prior VTE?: No VTE Risk Level:: Medical - moderate - high VTE Device Contraindication: Treatment Not Indicated VTE Drug Contraindication: N/A - Med Ordered
--- NOTE | 2021-06-14 13:00 | CA_ITS ---
Transthoracic Echocardiogram Patient (Last, First, Middle): Adi Burleson, Gender: Male Date of : 1935 Age: 86 Procedure Date: 06/14/2021 Procedure Type: Transthoracic Echocardiogram Location: ER Height: 185.42 cm Weight: 108.86 kg BSA: 2.33 m2 Heart Rate: bpm BP: 143 / 60 mmHg Mid Level Java Developer: Referring MD: Jose A Boone MD Airport Engineer: Jose A Boone MD Symptoms: Acute coronary syndrome Study Quality: Technically Difficult ECG Rhythm: Sinus Conclusions: - 1. Normal LV systolic function with LVEF of 60 65% with impaired relaxation filling pattern, wall motion abnormality cannot be ruled out on this study 2. Severe mitral calcification calcific aortic valve changes noted with slightly increased gradient across aortic valve 3. Normal RV systolic pressure 4. No gross pericardial effusion Findings Left Ventricle Normal left ventricular size, thickness, and systolic function. The visually estimated ejection fraction is between 60-65%. Spectral Doppler is indicative of an impaired relaxation filling pattern. E/E prime ratio is between 8 and 15 consistent with indeterminate filling pressures. Right Ventricle Normal right ventricular cavity size and systolic function. Atria The left atrium is likely dilated. Interatrial shunt cannot be excluded. The right atrium is normal in size. Aortic Valve There is mild calcification of the aortic valve. There is no aortic valve stenosis. The peak aortic gradient is 16 mmHg.The mean gradient is 8 mmHg. There is no aortic valve regurgitation. Mitral Valve There is moderate anterior and severe posterior mitral leaflet thickening. There is severe mitral annular calcification. There is trace mitral valve regurgitation. There is no mitral valve stenosis. Pulmonic Valve The pulmonic valve was not well visualized. Tricuspid Valve Likely normal tricuspid valve structure and function. There is trace tricuspid valve regurgitation. The right ventricular systolic pressure is normal. The right ventricular systolic pressure is 18 mmHg. Normal right atrial pressure. There is no evidence of pulmonary hypertension. Great Vessels All visible segments of the aorta are normal in size. The pulmonary artery was not well visualized. Venous The inferior vena cava is normal in size and collapses greater than 50% with inspiration. Pericardium/Pleural There is no evidence of pericardial effusion. Prior Study Comparison no previous study in the last 5 years for comparison Measurements 2D Linear Measurements IVSd: 1.13 0.6-0.9/0.6-1.0 cm LVIDd: 5.34 3.9-5.3/4.2-5.9 cm LVIDd Index: 2.29 2.4-3.2/2.2-3.1 cm/m2 LVIDs: 3.04 2.0-3.6 cm LVPWd: 1.08 0.7-1.1 cm Ao Root: 3.70 2.1-3.5 cm LA Diam: 4.00 2.7-3.8/3.0-4.0 cm LAIDs Index: 1.72 1.5-2.3 cm/m2 LV Mass: 289.22 67-162/88-224 g LV Mass Index: 124.13 43-95/49-115 g/m2 LVOT Diam: 2.10 3.0+(-)1.3 cm Mitral Valve MV VTI: 0.39 MV Pk Lazaro: 1.88 MV Mn Lazaro: 1.11 MV Pk Grad: 14.00 MV Mn Grad: 6.00 MV Pk E: 1.07 MV PK A: 1.50 MV Decel Time: 80.00 E/A: 0.70 E'Lateral: 7.40 E'Medial: 8.92 E/E' Med: 12.00 E/E' Lat: 14.50 PHT: 23.00 MVA PHT: 9.57 MVA Continuity: 2.49 Decel [place]: 13.36 Aortic Valve AoV Pk Lazaro: 1.99 AoV Mn Lazaro: 1.33 AoV VTI: 0.43 AoV Pk Grad: 16.00 Aov Mn Grad: 8.00 VALENTINE Cont.VTI: 2.25 LVOT LVOT Pk Lazaro: 1.30 LVOT Mn Lazaro: 0.79 LVOT VTI: 0.28 LVOT Pk Grad: 7.00 LVOT Mn Grad: 3.00 LVOT Diam: 2.10 LVOT Area: 3.46 Diastolic Function MV Pk E: 1.07 MV Pk A: 1.50 E/A: 0.70 E'Medial: 8.92 E/E' Med: 12.00 E' Laterial: 7.40 E/E' Lat: 14.50 Tricuspid Valve TR Pk Lazaro: 1.94 TR Pk Grad: 15.00 RA Press: 3.00 RVSP: 18.00 Great Vessels Aorta Ao Root-2D: 3.70 2.0-3.7 cm Pulmonary Valve PV Pk Lazaro: 0.92 Peak PV Grad: 3.00 Updated in Other Vendor System with Status of Final Jose A Boone MD electronically signed on 06/14/2021 3:40:26 PM with status of Final
[2021-06-14 14:18] VITALS: BP 141/64; PULSE 94; RESP 20; TEMP 36.9; O2SAT 96
[2021-06-14 15:11] VITALS: BP 183/80; PULSE 106
[2021-06-14] MEDS: Enoxaparin Sodium 100 MG/ML SYRINGE 110 MG SUBCUT (15:11)
[2021-06-14] MEDS: Metoprolol Tartrate 25 MG TABLET PO ×2 (15:11→20:34)
[2021-06-14] MEDS: 0.9 % Sodium Chloride Flush 3 ML SYRINGE IVFLUSH (15:13)
[2021-06-14 17:57] VITALS: BP 172/71; PULSE 78; RESP 22; TEMP 37.1; O2SAT 96
[2021-06-14 20:00] VITALS: BP 156/83; PULSE 82; RESP 16; TEMP 36.9; O2SAT 96
[2021-06-14] MEDS: Atorvastatin Calcium 40 MG TABLET PO (20:29)
--- NOTE | 2021-06-14 20:30 | PC.NURSE ---
medicated pre mar
[2021-06-14 20:34] VITALS: BP 156/63; PULSE 83
[2021-06-14 21:09] LABS: Glucose, Whole Blood 163 mg/dL (60-115)
[2021-06-15] VITALS (9 sets, daily range): BP systolic 121–180; BP diastolic 50–74; PULSE 61–84; RESP 16–20; TEMP 36.5–37.4; O2SAT 95–97; BMI 33.5
[2021-06-15] MEDS: 0.9 % Sodium Chloride Flush 3 ML SYRINGE IVFLUSH ×3 (01:56→16:55)
--- NOTE | 2021-06-15 02:01 | PC.NURSE ---
pt is sleeping, no sign of distress. Will continue to monitor
[2021-06-15] MEDS: Enoxaparin Sodium 100 MG/ML SYRINGE 110 MG SUBCUT (03:50)
--- NOTE | 2021-06-15 03:53 | PC.NURSE ---
pt a&o, denies any sob or chest pain. pt able to get oob with assist to bathroom. no dizziness or lightheadedness. Called reports
[2021-06-15 06:13] LABS: Hematocrit 31.7 % (42.0-52.0); Hemoglobin 10.4 g/dl (14.0-18.0); Mean Corpuscular HGB Conc 32.8 g/dl (31.0-36.0); Mean Corpuscular Hemoglobin 31.2 pg (27.0-33.0); Mean Corpuscular Volume 95.2 fL (80.0-98.0); Mean Platelet Volume 9.3 fL (9.4-12.4); Platelet Count 327 X10*3/uL (160-400); Red Blood Count 3.33 X10*6/uL (4.60-5.80); Red Cell Distribution Width 13.9 % (11.0-16.0); White Blood Count 9.8 X10*3/uL (4.8-10.8)
[2021-06-15] MEDS: Omeprazole 20 MG CAPSULE.DR PO (06:26)
[2021-06-15 06:39] LABS: Anion Gap 11 (12-20); Blood Urea Nitrogen 32 mg/dL (9-16); Calcium 8.8 mg/dL (8.4-10.2); Carbon Dioxide 23 mmol/L (22-29); Chloride 109 mmol/L (96-108); Creatinine Clr Calc Pharmacy 49.9; Estimated Glomerular Filt Rate 48; Glucose Random 154 mg/dL (60-115); Potassium 4.8 mmol/L (3.3-5.1); Sodium 138 mmol/L (135-145)
[2021-06-15 07:48] LABS: Glucose, Whole Blood 146 mg/dL (60-115)
--- NOTE | 2021-06-15 08:33 | MHC.CM.PN ---
CM met with Patient at bedside and addressed IMM with him, providing him with the original and placing a copy on the chart.Patient lives alone in a house and uses a cane to assist with mobility. Patient's goal is to return home/no services and CM has initiated and will follow for dc planning, PCP is Dr. Adi Champagne, and Daughter/Jayleen is the HCP.
[2021-06-15] MEDS: Valsartan 320 MG TABLET PO (09:40)
[2021-06-15] MEDS: Doxazosin Mesylate 2 MG TABLET PO (09:41)
[2021-06-15] MEDS: Loratadine 10 MG TABLET PO (09:41)
[2021-06-15] MEDS: Aspirin Enteric Coated 81 MG TABLET.DR PO (09:41)
[2021-06-15] MEDS: Furosemide 20 MG TABLET PO (09:41)
[2021-06-15] MEDS: Metoprolol Tartrate 25 MG TABLET PO ×2 (09:41→20:49)
--- NOTE | 2021-06-15 11:33 | PM.PNCARD ---
Subjective Subjective Date of Service: 06/15/21 <LETICIA Chang - Last Filed: 06/15/21 11:49> 06/15/21 <Jose A Boone MD - Last Filed: 06/15/21 12:13> Principal diagnosis: Chest pain, elevated Troponin <LETICIA Chang - Last Filed: 06/15/21 11:49> Interval history: Cardiology follow up for CP, Trop elevation. Seen at 1045. Today he reports feeling well. He has not had any recurrent pain, like what brought him in. He has had some random sharp pains to the chest region when he coughs or sneezes. No sob, palpitation, dizziness. Having stress portion of the stress test today. <LETICIA Chang - Last Filed: 06/15/21 11:49> Review of Systems Review of Systems as above <LETICIA Chang - Last Filed: 06/15/21 11:49> Yes all other systems are reviewed and are negative <LETICIA Chang - Last Filed: 06/15/21 11:49> Physical Exam Vital Signs: Last Vital Signs Temp 98.4 F 06/15/21 08:00 Pulse 84 06/15/21 09:41 Resp 19 06/15/21 08:00 BP 180/74 H 06/15/21 09:41 Pulse Ox 95 06/15/21 08:00 BMI result Body Mass Index 33.5 <LETICIA Chang - Last Filed: 06/15/21 11:49> Const General: cooperative, no acute distress, alert and awake <LETICIA Chang - Last Filed: 06/15/21 11:49> Orientation/consciousness: patient oriented x3 <LETICIA Chang - Last Filed: 06/15/21 11:49> Neck Neck: Yes normal visual inspection <LETICIA Chang - Last Filed: 06/15/21 11:49> Resp Effort & Inspection: normal respiratory effort, able to speak in complete sentences and not labored <LETICIA Chang - Last Filed: 06/15/21 11:49> Auscultation: clear to auscultation bilaterally, rales (fine left base), no rhonchi and no wheezes <[facility] - Last Filed: 06/15/21 11:49> Cardio Palpation: normal PMI <[facility] - Last Filed: 06/15/21 11:49> Rate: regular rate <[facility] - Last Filed: 06/15/21 11:49> Rhythm: regular rhythm <[facility] - Last Filed: 06/15/21 11:49> Heart sounds: S1 normal heart sound present and S2 normal heart sound present <[facility] - Last Filed: 06/15/21 11:49> Peripheral pulses: Peripheral pulses 2+ throughout <[facility] - Last Filed: 06/15/21 11:49> GI Inspection: Yes normal to inspection <[facility] - Last Filed: 06/15/21 11:49> Neuro General: patient oriented x3 <[facility] - Last Filed: 06/15/21 11:49> Extrem General: Yes normal to inspection and No edema <[facility] - Last Filed: 06/15/21 11:49> Objective Labs and Meds Result diagrams: : 06/15/21 05:51 06/15/21 05:51 <[facility] - Last Filed: 06/15/21 11:49> Lab results: Laboratory Results - last 24 hr 06/14/21 06/14/21 06/15/21 10:36 21:04 05:51 WBC 9.8 RBC 3.33 L Hgb 10.4 L Hct 31.7 L MCV 95.2 MCH 31.2 MCHC 32.8 RDW 13.9 Plt Count 327 MPV 9.3 L Absolute Nucleated RBC 0.000 Nucleated RBC % (auto) 0.0 Sodium Potassium Chloride Carbon Dioxide Anion Gap BUN Creatinine Estim Creat Clear Calc Estimated GFR POC Glucose 163 H Random Glucose Calcium B-Natriuretic Peptide 33 06/15/21 06/15/21 05:51 07:23 WBC RBC Hgb Hct MCV MCH MCHC RDW Plt Count MPV Absolute Nucleated RBC Nucleated RBC % (auto) Sodium 138 Potassium 4.8 Chloride 109 H Carbon Dioxide 23 Anion Gap 11 L BUN 32 H Creatinine 1.41 H Estim Creat Clear Calc 49.9 Estimated GFR 48 POC Glucose 146 H Random Glucose 154 H Calcium 8.8 B-Natriuretic Peptide <Dipika García LETICIA Bradley - Last Filed: 06/15/21 11:49> Progress Note: A&P Assessment and plan (1) Acute coronary syndrome: Status: Acute <Dipika Raquel VINCENZO BradleyC - Last Filed: 06/15/21 11:49> Assessment and Plan: Admit with chest pain that was relieved when EMS gave him NTG. EKG SR, RBBB, LAFB. Troponin initially 147.7 then down to 110. Echo showed EF 60-65%, regional WMA could not be ruled out. He did have normal pulmonary perfusion imaging. Since admit he has not had CP like when made him come in. He has has some different atypical pains with cough, sneeze. Tele stable SR, IVCD, rate 70s. Has multiple cardiac risk factors including age, HTN, HLD, DM. Concern for ACS. Did recieve therapeutic Lovenox. Continues on aspirin, atorvastatin, metoprolol. Stress portion of nuclear stress test being completed today, will have rest images tomorrow. Obtain EKG if he does report recurrent CP like admit. We will follow. <VINCENZO ChangC - Last Filed: 06/15/21 11:49> Admit with chest pain that was relieved when EMS gave him NTG. EKG SR, RBBB, LAFB. Troponin initially 147.7 then down to 110. Echo showed EF 60-65%, regional WMA could not be ruled out. He did have normal pulmonary perfusion imaging. Since admit he has not had CP like when made him come in. He has has some different atypical pains with cough, sneeze. Tele stable SR, IVCD, rate 70s. Has multiple cardiac risk factors including age, HTN, HLD, DM. Concern for ACS. Did recieve therapeutic Lovenox. Continues on aspirin, atorvastatin, metoprolol. Stress portion of nuclear stress test being completed today, will have rest images tomorrow. Obtain EKG if he does report recurrent CP like admit. We will follow. Patient seen and case discussed with Dipika Bradley. Overnight no episodes of chest discomfort. Echocardiogram shows LVEF of 60 65%. Underwent Elsie Mibi today, shows inferior wall defect which could be diaphragmatic attenuation. Need resting study. Continue aspirin atorvastatin metoprolol. Can discontinue Lovenox for now. Will follow with you after the resting study <Jose A Boone MD - Last Filed: 06/15/21 12:13> (2) Chest pain: Status: Acute <LETICIA Chang - Last Filed: 06/15/21 11:49> (3) Elevated troponin: Status: Acute <LETICIA Chang - Last Filed: 06/15/21 11:49> Fall Risk Details Current Medications: Current Medications Acetaminophen (Acetaminophen 325 Mg Tablet) 650 mg PO Q6H PRN PRN Reason: Pain, Mild (Pain Scale 1-3) Aspirin (Aspirin Enteric Coated 81 Mg Tablet.) 81 mg PO DAILY [facility] Last Admin: 06/15/21 09:41 Dose: 81 mg Documented by: Atorvastatin Calcium (Atorvastatin Calcium 40 Mg Tablet) 40 mg PO BEDTIME [facility] Last Admin: 06/14/21 20:29 Dose: 40 mg Documented by: Doxazosin Mesylate (Doxazosin Mesylate 2 Mg Tablet) 2 mg PO DAILY [facility]; Protocol Last Admin: 06/15/21 09:41 Dose: 2 mg Documented by: Furosemide (Furosemide 20 Mg Tablet) 20 mg PO DAILY [facility]; Protocol Last Admin: 06/15/21 09:41 Dose: 20 mg Documented by: Loratadine (Loratadine 10 Mg Tablet) 10 mg PO DAILY [facility] Last Admin: 06/15/21 09:41 Dose: 10 mg Documented by: Metoprolol Tartrate (Metoprolol Tartrate 25 Mg Tablet) 25 mg PO BID [facility]; Protocol Last Admin: 06/15/21 09:41 Dose: 25 mg Documented by: Omeprazole (Omeprazole 20 Mg Capsule.) 20 mg PO DAILY@0630 [facility] Last Admin: 06/15/21 06:26 Dose: 20 mg Documented by: Pharmacy Consult (Consult Rx Perform Med Rec) 1 each MISCELLANE ONCE PRN PRN Reason: Consult order Sodium Chloride (0.9 % Sodium Chloride Flush 3 Ml Syringe) 3 ml IVFLUSH QSHIFT [facility] Last Admin: 06/15/21 09:41 Dose: 3 ml Documented by: Valsartan (Valsartan 320 Mg Tablet) 320 mg PO DAILY [facility]; Protocol Last Admin: 06/15/21 09:40 Dose: 320 mg Documented by: <LETICIA Chang - Last Filed: 06/15/21 11:49> Time Spent With Patient Time: Total time spent is greater than 50% in coordination of care (as documented) at patient's floor/unit and/or counseling patient: 20 <LETICIA Chang - Last Filed: 06/15/21 11:49> Time with patient: 15 - 24 minutes <LETICIA Chang - Last Filed: 06/15/21 11:49> Progress Note: Quality Stroke Does the patient have a stroke diagnosis?: No <LETICIA Chang - Last Filed: 06/15/21 11:49> Procedures Date of Service Date of Service: 06/15/21 <LETICIA Chang - Last Filed: 06/15/21 11:49>
[2021-06-15 11:54] LABS: Glucose, Whole Blood 151 mg/dL (60-115)
--- NOTE | 2021-06-15 14:52 | P.PNIM_ITS ---
Subjective Subjective Date of Service: 06/15/21 Interval History: seen and examined this afternoon follow up for chest pain had first portion of stress test this morning no chest pain, SOB at this time reports constipation Review of Systems Review of Systems: Yes all other systems are reviewed and are negative Constitutional Constitutional: Denies chills and Denies fever(s) Cardiovascular Cardiovascular: Denies chest pain Respiratory Respiratory: Denies cough Gastrointestinal Gastrointestinal: Denies abdominal pain Physical Exam Vital Signs: Vital Signs: Last Vital Signs Temp 99.4 F 06/15/21 11:46 Pulse 71 06/15/21 11:46 Resp 18 06/15/21 11:46 BP 149/62 H 06/15/21 11:46 Pulse Ox 96 06/15/21 11:46 BMI result Body Mass Index 33.5 Const: General: cooperative, comfortable, no acute distress, alert and awake Nutritional Appearance: well nourished Orientation/consciousness: patient oriented x3 HENMT: Head: Yes normocephalic and Yes atraumatic Eyes: Sclerae: sclerae normal Resp: Effort & Inspection: normal respiratory effort and no respiratory distress Cardio: Rate: regular rate Rhythm: regular rhythm GI: Inspection: No distended Palpation (GI): Soft to palpation and nontender Neuro: General: patient oriented x3 Cranial nerves: Yes CN's II-XII intact bilaterally and Yes Bilaterally intact EOM present Objective Data Active Medications Acetaminophen (Acetaminophen 325 Mg Tablet) 650 mg PO Q6H PRN PRN Reason: Pain, Mild (Pain Scale 1-3) Aspirin (Aspirin Enteric Coated 81 Mg Tablet.) 81 mg PO DAILY [facility] Last Admin: 06/15/21 09:41 Dose: 81 mg Documented by: IZA Atorvastatin Calcium (Atorvastatin Calcium 40 Mg Tablet) 40 mg PO BEDTIME [facility] Last Admin: 06/14/21 20:29 Dose: 40 mg Documented by: AFUA Doxazosin Mesylate (Doxazosin Mesylate 2 Mg Tablet) 2 mg PO DAILY [facility]; Protocol Last Admin: 06/15/21 09:41 Dose: 2 mg Documented by: IZA Furosemide (Furosemide 20 Mg Tablet) 20 mg PO DAILY [facility]; Protocol Last Admin: 06/15/21 09:41 Dose: 20 mg Documented by: IZA Loratadine (Loratadine 10 Mg Tablet) 10 mg PO DAILY [facility] Last Admin: 06/15/21 09:41 Dose: 10 mg Documented by: IZA Metoprolol Tartrate (Metoprolol Tartrate 25 Mg Tablet) 25 mg PO BID [facility]; Protocol Last Admin: 06/15/21 09:41 Dose: 25 mg Documented by: IZA Omeprazole (Omeprazole 20 Mg Capsule.Dr) 20 mg PO DAILY@0630 [facility] Last Admin: 06/15/21 06:26 Dose: 20 mg Documented by: MORENO Pharmacy Consult (Consult Rx Perform Med Rec) 1 each MISCELLANE ONCE PRN PRN Reason: Consult order Sodium Chloride (0.9 % Sodium Chloride Flush 3 Ml Syringe) 3 ml IVFLUSH QSHIFT [facility] Last Admin: 06/15/21 09:41 Dose: 3 ml Documented by: IZA Valsartan (Valsartan 320 Mg Tablet) 320 mg PO DAILY [facility]; Protocol Last Admin: 06/15/21 09:40 Dose: 320 mg Documented by: IZA Labs CBC & Chem 7: 06/15/21 05:51 06/15/21 05:51 Labs: Laboratory Results - last 24 hr 06/14/21 06/15/21 06/15/21 21:04 05:51 05:51 MCV 95.2 MCH 31.2 MCHC 32.8 RDW 13.9 Plt Count 327 MPV 9.3 L Absolute Nucleated RBC 0.000 Nucleated RBC % (auto) 0.0 Anion Gap 11 L Estim Creat Clear Calc 49.9 Estimated GFR 48 POC Glucose 163 H Random Glucose 154 H Calcium 8.8 06/15/21 06/15/21 07:23 11:50 MCV MCH MCHC RDW Plt Count MPV Absolute Nucleated RBC Nucleated RBC % (auto) Anion Gap Estim Creat Clear Calc Estimated GFR POC Glucose 146 H 151 H Random Glucose Calcium Assessment and Plan (1) Chest pain: Status: Acute (2) Elevated troponin: Status: Acute Assessment and Plan: This is an 86 yo M with multiple risk factors for CAD (Age, Sex, DM, HTN) who presents to the hospital with complaints of left-sided chest pain on the morning of admission. His presentation is worrisome for acute coronary syndrome. He will be admitted for further work up and treatment. Acute Coronary syndrome s/p Lovenox 1mg/kg BID x 2, ok to d/c per cardiology Continue aspirin, statin (will change his simvastatin to lipitor 40), beta- iman (will switch his cardizem to metoprolol 25mg bid) 2d Echo done, WMA could not be ruled out Inpatient stress test today, with resting images tomorrow Cardiology following constipation will start bowel regimen HTN continue baseline meds (cardura, valsartan), change to metoprolol as above DM hold metformin continue SSI, POCs, ADA diet Chronic HFpEG no acute exacerbation ECHO showing preserved EF continue home dose of lasix Asthma/COPD not in exacerbation continue his inhalers CKD3 renal function at baseline DNR/DNI Endorses his daughter as health care proxy Attending: dr. Guzmán Quality Stroke Does the patient have a stroke diagnosis?: No VTE Prior VTE?: No VTE Risk Level:: Medical - moderate - high VTE Device Contraindication: Treatment Not Indicated VTE Drug Contraindication: N/A - Med Ordered
[2021-06-15 16:01] LABS: Glucose, Whole Blood 137 mg/dL (60-115)
[2021-06-15] MEDS: Acetaminophen 325 MG TABLET 650 MG PO (16:55)
[2021-06-15] MEDS: polyethylene glycoL 3350 17 GM POWD.PACK PO (16:55)
[2021-06-15 19:33] LABS: Glucose, Whole Blood 85 mg/dL (60-115)
[2021-06-15] MEDS: Atorvastatin Calcium 40 MG TABLET PO (20:49)
[2021-06-15] MEDS: Docusate Sodium 100 MG CAPSULE PO (20:49)
[2021-06-16] MEDS: 0.9 % Sodium Chloride Flush 3 ML SYRINGE IVFLUSH ×2 (01:02→10:38)
[2021-06-16 03:07] VITALS: BP 134/61; PULSE 66; RESP 20; TEMP 36.4; O2SAT 95
[2021-06-16] MEDS: Omeprazole 20 MG CAPSULE.DR PO (06:08)
[2021-06-16 07:12] LABS: Anion Gap 15 (12-20); Blood Urea Nitrogen 36 mg/dL (9-16); Carbon Dioxide 21 mmol/L (22-29); Chloride 108 mmol/L (96-108); Creatinine Clr Calc Pharmacy 49.9; Estimated Glomerular Filt Rate 48; Glucose Random 148 mg/dL (60-115); Potassium 5.1 mmol/L (3.3-5.1); Sodium 139 mmol/L (135-145)
[2021-06-16 07:16] LABS: Glucose, Whole Blood 146 mg/dL (60-115)
[2021-06-16 07:25] VITALS: BP 161/74; PULSE 93; RESP 18; TEMP 37.3; O2SAT 94
[2021-06-16 10:39] VITALS: BP 161/74; PULSE 93
[2021-06-16] MEDS: Valsartan 320 MG TABLET PO (10:39)
[2021-06-16] MEDS: Furosemide 20 MG TABLET PO (10:39)
[2021-06-16] MEDS: Metoprolol Tartrate 25 MG TABLET PO (10:39)
[2021-06-16] MEDS: polyethylene glycoL 3350 17 GM POWD.PACK PO (10:40)
[2021-06-16] MEDS: Loratadine 10 MG TABLET PO (10:40)
[2021-06-16] MEDS: Doxazosin Mesylate 2 MG TABLET PO (10:40)
[2021-06-16] MEDS: Lactulose 20 GM/30 ML SOLUTION PO (10:40)
[2021-06-16] MEDS: Aspirin Enteric Coated 81 MG TABLET.DR PO (10:40)
[2021-06-16 11:12] LABS: Glucose, Whole Blood 206 mg/dL (60-115)
[2021-06-16 11:24] VITALS: BP 145/67; PULSE 92; O2SAT 98
--- NOTE | 2021-06-16 11:40 | PM.PNCARD ---
Subjective Subjective Date of Service: 06/16/21 Principal diagnosis: Chest pain, elevated Troponin Interval history: Cardiology follow up for CP. Seen at 0815. Today he reports feeling good. No recurrent CP like what brought him into hospital. No longer having sharp pains when he coughs. No sob, palpitation, dizziness, presyncope, syncope, PND, orthopnea or edema. Ambulates to BR and tolerates well. Hoping to go home today. Review of Systems Review of Systems as above Yes all other systems are reviewed and are negative Physical Exam Vital Signs: Last Vital Signs Temp 99.1 F 06/16/21 07:25 Pulse 92 06/16/21 11:24 Resp 18 06/16/21 07:25 BP 145/67 H 06/16/21 11:24 Pulse Ox 98 06/16/21 11:24 BMI result Body Mass Index 33.5 Const General: cooperative, healthy appearing, no acute distress, alert and awake Orientation/consciousness: patient oriented x3 Neck Neck: Yes normal visual inspection and Yes no JVD Resp Effort & Inspection: normal respiratory effort, able to speak in complete sentences and not labored Auscultation: clear to auscultation bilaterally, no crackles, no rales, no rhonchi and no wheezes Cardio Jugular venous distension: JVD present Palpation: normal PMI Rate: regular rate Rhythm: regular rhythm Heart sounds: S1 normal heart sound present and S2 normal heart sound present Peripheral pulses: Peripheral pulses 2+ throughout GI Inspection: Yes normal to inspection Neuro General: patient oriented x3 Extrem General: Yes normal to inspection and No edema Objective Labs and Meds Result diagrams: 06/15/21 05:51 06/16/21 06:02 Lab results: Laboratory Results - last 24 hr 06/15/21 06/15/21 06/15/21 11:50 15:56 19:29 Sodium Potassium Chloride Carbon Dioxide Anion Gap BUN Creatinine Estim Creat Clear Calc Estimated GFR POC Glucose 151 H 137 H 85 Random Glucose Calcium 06/16/21 06/16/21 06/16/21 06:02 07:13 11:08 Sodium 139 Potassium 5.1 Chloride 108 Carbon Dioxide 21 L Anion Gap 15 BUN 36 H Creatinine 1.41 H Estim Creat Clear Calc 49.9 Estimated GFR 48 POC Glucose 146 H 206 H Random Glucose 148 H Calcium 9.0 Imaging Radiologist's impression: Impressions Myocardial Perfusion Scan Nuc Med 06/16/21 09:00 Impression: 1. Myocardial perfusion imaging study shows equivocal for minimal inferior ischemia. Otherwise normal study 2. Gated LVEF is 66% 3. Transient ischemic dilatation not present EKG is nondiagnostic for ischemia Progress Note: A&P Assessment and plan (1) Acute coronary syndrome: Status: Acute Assessment and Plan: Admit with chest pain that was relieved when EMS gave him NTG. EKG SR, RBBB, LAFB. Troponin initially 147.7 then down to 110. Echo showed EF 60-65%, regional WMA could not be ruled out. He did have normal pulmonary perfusion imaging. Since admit he has not had CP like when made him come in. Tele stable SR, IVCD, rate 70s. Has multiple cardiac risk factors including age, HTN, HLD, DM. Concern for ACS. Did receive therapeutic Lovenox. Continues on aspirin, atorvastatin, metoprolol. Nuclear stress test completed today is equivocal for minimal inferior ischemia, EF 66%. Pt feeling good. He may be discharged from a cardiology perpective and we will arrange for outpt cardiology follow up. (2) Chest pain: Status: Acute (3) Elevated troponin: Status: Acute Fall Risk Details Current Medications: Current Medications Acetaminophen (Acetaminophen 325 Mg Tablet) 650 mg PO Q6H PRN PRN Reason: Pain, Mild (Pain Scale 1-3) Last Admin: 06/15/21 16:55 Dose: 650 mg Documented by: Aspirin (Aspirin Enteric Coated 81 Mg Tablet.) 81 mg PO DAILY [facility] Last Admin: 06/16/21 10:40 Dose: 81 mg Documented by: Atorvastatin Calcium (Atorvastatin Calcium 40 Mg Tablet) 40 mg PO BEDTIME [facility] Last Admin: 06/15/21 20:49 Dose: 40 mg Documented by: Docusate Sodium (Docusate Sodium 100 Mg Capsule) 100 mg PO BEDTIME [facility] Last Admin: 06/15/21 20:49 Dose: 100 mg Documented by: Doxazosin Mesylate (Doxazosin Mesylate 2 Mg Tablet) 2 mg PO DAILY [facility]; Protocol Last Admin: 06/16/21 10:40 Dose: 2 mg Documented by: Furosemide (Furosemide 20 Mg Tablet) 20 mg PO DAILY [facility]; Protocol Last Admin: 06/16/21 10:39 Dose: 20 mg Documented by: Loratadine (Loratadine 10 Mg Tablet) 10 mg PO DAILY [facility] Last Admin: 06/16/21 10:40 Dose: 10 mg Documented by: Metoprolol Tartrate (Metoprolol Tartrate 25 Mg Tablet) 25 mg PO BID [facility]; Protocol Last Admin: 06/16/21 10:39 Dose: 25 mg Documented by: Omeprazole (Omeprazole 20 Mg Capsule.Dr) 20 mg PO DAILY@0630 [facility] Last Admin: 06/16/21 06:08 Dose: 20 mg Documented by: Pharmacy Consult (Consult Rx Perform Med Rec) 1 each MISCELLANE ONCE PRN PRN Reason: Consult order Polyethylene Glycol (Polyethylene Glycol 3350 17 Gm Powd.Pack) 17 gm PO DAILY [facility] Last Admin: 06/16/21 10:40 Dose: 17 gm Documented by: Sodium Chloride (0.9 % Sodium Chloride Flush 3 Ml Syringe) 3 ml IVFLUSH QSHIFT [facility] Last Admin: 06/16/21 10:38 Dose: 3 ml Documented by: Valsartan (Valsartan 320 Mg Tablet) 320 mg PO DAILY [facility]; Protocol Last Admin: 06/16/21 10:39 Dose: 320 mg Documented by: Time Spent With Patient Time: Total time spent is greater than 50% in coordination of care (as documented) at patient's floor/unit and/or counseling patient: 18 Time with patient: 15 - 24 minutes Progress Note: Quality Stroke Does the patient have a stroke diagnosis?: No Procedures Date of Service Date of Service: 06/16/21
--- NOTE | 2021-06-16 14:06 | PM.DS ---
DS: Providers Provider Date of Service: 06/16/21 <ALTIA Gray - Last Filed: 06/16/21 14:23> Date of admission: 06/14/21 12:15 <LATIA Gray - Last Filed: 06/16/21 14:23> Primary care physician: Adi Champagne MD <LATIA Gray - Last Filed: 06/16/21 14:23> Consults: 06/14/21 11:45 Consult to Cardiology Stat Consulting Provider: Jose A Boone Reason for consultation: chest pain Has provider been notified: Yes 06/14/21 12:24 Consult to Cardiology Routine Consulting Provider: Jose A Boone Reason for consultation: ACS Has provider been notified: Yes <LATIA Gray - Last Filed: 06/16/21 14:23> Attending physician on discharge: Eric Guzmán <LATIA Gray - Last Filed: 06/16/21 14:23> Discharging clinician: Virginia Linares <LATIA Gray - Last Filed: 06/16/21 14:23> DS: Diagnosis Discharge Diagnosis (1) Acute coronary syndrome: Status: Acute <LATIA Gray - Last Filed: 06/16/21 14:23> (2) Chest pain: Status: Acute <LATIA Gray - Last Filed: 06/16/21 14:23> (3) Elevated troponin: Status: Acute <LATIA Gray - Last Filed: 06/16/21 14:23> DS: Summary Hospital Course Hospital Course: From H&P on day of admission This is an 86 yo M with a PMH as outlined below who presents to [facility] after 2 episodes of left sided chest pain on the morning of admission. The patient reports that he was ambulating to bathroom earlier in the day when he noticed left-sided, sharp, non-radiating chest pain which last a few seconds and resolved on its own. He again noticed the same chest pain when he ambulated to the bathroom, but this did not improve and in fact it became worse so he called the paramedics. On route to the hospital, the patient was given aspirin and nitro. His chest pain has since resolved. He denies any prior such episodes. He denies any associated shortness of breath. He denies any prior known history of CAD, but he does endorse a history of CHF for which he is on lasix. He denies any prior cardiac catherization. Upon arrival to the ED, the patient's work up revealed an EKG with bisasicular block (unchanged from prior EKG). His HS troponin was elevated x 2, but flat. Given his typical symptoms, he will be admitted for the treatment of ACS. Acute Coronary syndrome. Patient was admitted for chest pain with elevated troponin. Initially trop was 147, repeat down to 110.. He has multiple cardiac risk factors and therefor was was initially treated with therapeutic lovenox. He was continue aspirin, statin (changed simvastatin to lipitor 40), beta-iman (changed cardizem to metoprolol 25mg bid). 2d Echo done, WMA could not be ruled out, EF 60-65%. He was seen by cardiology and underwent nuclear stress test which was equivocal for minimal inferior ischemia. He has not had any further chest pain and can be discharged from cardiology perspective with plan for close outpatient follow up. <LATIA Gray - Last Filed: 06/16/21 14:23> Time Spent with Patient Time attestation: Total time spent providing and/or coordinating discharge services: <LATIA Gray - Last Filed: 06/16/21 14:23> Discharge coordination time: Greater than 30 minutes <LATIA Gray Last Filed: 06/16/21 14:23> Quality: Stroke Does the patient have a stroke diagnosis?: No <LATIA Gray Last Filed: 06/16/21 14:23> Physical Exam Vital Signs: Vital Signs: Last Vital Signs Temp 99.1 F 06/16/21 07:25 Pulse 92 06/16/21 11:24 Resp 18 06/16/21 07:25 BP 145/67 H 06/16/21 11:24 Pulse Ox 98 06/16/21 11:24 BMI result Body Mass Index 33.5 <LATIA Gray Last Filed: 06/16/21 14:23> Const: General: comfortable, no acute distress, alert and awake <LATIA Gray Last Filed: 06/16/21 14:23> Nutritional Appearance: well nourished <LATIA Gray - Last Filed: 06/16/21 14:23> Orientation/consciousness: patient oriented x3 <LATIA Gray - Last Filed: 06/16/21 14:23> HENMT: Head: Yes normocephalic and Yes atraumatic <LATIA Gray - Last Filed: 06/16/21 14:23> Eyes: Sclerae: sclerae normal <LATIA Gray - Last Filed: 06/16/21 14:23> Resp: Effort & Inspection: normal respiratory effort and no respiratory distress <LATIA Gray - Last Filed: 06/16/21 14:23> Cardio: Rate: regular rate <LATIA Gray - Last Filed: 06/16/21 14:23> Rhythm: regular rhythm <LATIA Gray - Last Filed: 06/16/21 14:23> GI: Palpation (GI): Soft to palpation and nontender <LATIA Gray - Last Filed: 06/16/21 14:23> Neuro: General: patient oriented x3 <LATIA Gray - Last Filed: 06/16/21 14:23> Cranial nerves: Yes CN's II-XII intact bilaterally and Yes Bilaterally intact EOM present <LATAI Gray - Last Filed: 06/16/21 14:23> Extrem: General: Yes no pedal edema <LATIA Gray - Last Filed: 06/16/21 14:23> DS: Data Data Completed and Pending Labs on day of discharge: Laboratory Results - last 24 hr 06/15/21 06/15/21 06/16/21 15:56 19:29 06:02 Sodium 139 Potassium 5.1 Chloride 108 Carbon Dioxide 21 L Anion Gap 15 BUN 36 H Creatinine 1.41 H Estim Creat Clear Calc 49.9 Estimated GFR 48 POC Glucose 137 H 85 Random Glucose 148 H Calcium 9.0 06/16/21 06/16/21 07:13 11:08 Sodium Potassium Chloride Carbon Dioxide Anion Gap BUN Creatinine Estim Creat Clear Calc Estimated GFR POC Glucose 146 H 206 H Random Glucose Calcium <LATIA Gray - Last Filed: 06/16/21 14:23> Discharge Plan Discharge Patient Disposition: Home, Self-Care <LATIA Gray - Last Filed: 06/16/21 14:23> Discharge Diagnosis: chest pain <LATIA Gray - Last Filed: 06/16/21 14:23> chest pain <Eric Guzmán MD - Last Filed: 06/19/21 08:26> Referrals: Adi Champagne MD [Primary Care Provider] - 1 Week Jose A Boone MD [Physician] - 1 Week <LATIA Gray - Last Filed: 06/16/21 14:23> Discharge Medications: New atorvastatin 40 mg Tablet 40 mg PO BEDTIME 30 Days Qty: 30 RF: 0 metoprolol tartrate 25 mg Tablet 25 mg PO BID 30 Days Qty: 60 RF: 0 Continued metformin 500 mg Tablet 500 mg PO BID RF: 0 aspirin 81 mg Tablet,Delayed Release (Dr/Ec) 81 mg PO DAILY RF: 0 valsartan 320 mg Tablet 320 mg PO DAILY RF: 0 zafirlukast 20 mg Tablet 20 mg PO BID RF: 0 furosemide 20 mg Tablet 20 mg PO DAILY RF: 0 loratadine 10 mg Tablet 10 mg PO DAILY RF: 0 doxazosin 2 mg Tablet 2 mg PO DAILY RF: 0 Asmanex Twisthaler 220 mcg/ actuation (60) Aerosol Powdr Breath Activated 1 inh INHALATION BID RF: 0 psyllium Packet 2 packet PO DAILY RF: 0 tramadol 50 mg Tablet 50 mg PO BID PRN (Reason: Pain) RF: 0 omeprazole 20 mg Capsule,Delayed Release(Dr/Ec) 20 mg PO DAILY RF: 0 Combivent Respimat 20-100 mcg/actuation Mist 1 puff INHALATION Q6H PRN (Reason: Wheezing) RF: 0 multivitamin Tablet 1 tab PO DAILY RF: 0 Discontinued diltiazem HCl 240 mg Capsule,Extended Release 24 Hr 240 mg PO DAILY RF: 0 simvastatin 40 mg Tablet 20 mg PO BEDTIME RF: 0 <LATIA Gray - Last Filed: 06/16/21 14:23> Discharge Orders: Discharge Order (Routine); Ordered 06/16/21 Ordered By: Virginia Linares <LATIA Gray - Last Filed: 06/16/21 14:23> Activity on Discharge: As tolerated <LATIA Gray - Last Filed: 06/16/21 14:23> As tolerated <Eric Guzmán MD - Last Filed: 06/19/21 08:26> Stand Alone Forms: Patient Portal Discharge page <LATIA Gary - Last Filed: 06/16/21 14:23> Care Plan Goals: see below <LATIA Gray - Last Filed: 06/16/21 14:23> Health Concerns: chest pain <LATIA Gray - Last Filed: 06/16/21 14:23> Plan of Treatment: chest pain - call to schedule follow up appointment with cardiology stop taking diltiazem (cardizem) and start taking metoprolol as prescribed stop taking simvastatin, start taking atovastatin as prescribed <LATIA Gray - Last Filed: 06/16/21 14:23> Assessment: see discharge summary Attending Attestation: I have personally seen and examined the patient independently (on the date of service as documented by NPP), reviewed the NPP history, exam and?MDM and agree with the assessment and plan as?written <LATIA Gray - Last Filed: 06/16/21 14:23> Discharge Date/Time: 06/16/21 17:10 <LATIA Gray - Last Filed: 06/16/21 14:23>
--- NOTE | 2021-06-16 14:27 | MHC.CM.PN ---
Patient has been medically cleared for dc to home today, no services. [facility] addressed yesterday.
== END 2021-06-16 17:10 | disposition home or self-care (01) | DRG 311 ==
LOC: HO.ED 12:21 → HO.EDOVER 12:36 → HO.IMC 06-15 03:23
PROVIDERS: Admitting Provider Family Medicine; Emergency Provider Emergency Medicine; PCP Internal Medicine Medical Oncology; Visit Provider Physician Assistant Medical
DX: I24.9 Acute ischemic heart disease, unspecified (principal); I50.32 Chronic diastolic (congestive) heart failure; I13.0 Hypertensive heart and chronic kidney disease with heart failure and stage 1 through stage 4 chronic kidney disease, or unspecified chronic kidney disease; J45.909 Unspecified asthma, uncomplicated; K59.00 Constipation, unspecified; E11.22 Type 2 diabetes mellitus with diabetic chronic kidney disease; N18.30 Chronic kidney disease, stage 3 unspecified; Z79.82 Long term (current) use of aspirin; Z79.84 Long term (current) use of oral hypoglycemic drugs; Z79.891 Long term (current) use of opiate analgesic; Z79.899 Other long term (current) drug therapy; Z66 Do not resuscitate
CPT/HCPCS: 36415; 71045; 78452; 78580; 80048; 80076; 82947; 83690; 83735; 83880; 84484; 85025; 85027; 85379; 87635; 93005; 93017; 93306; 99285; A9500; A9540; J0280; J1650; J2785

== ENCOUNTER 2021-07-25 13:59 | Outpatient (REF) | payer MEDICARE, SELFPAY ==
--- NOTE | ~2021-07-25 | XR_ITS ---
EXAMINATION: XR CHEST CLINICAL INFORMATION: Shortness of breath COMPARISON: Previous chest x-ray most recent 06/14/2021 TECHNIQUE: 2 views of the chest were obtained. FINDINGS: The cardiac and mediastinal contours are stable. There is atelectasis or small infiltrate at the left lung base. There is a new moderate left pleural effusion. The right lung is clear. There is no right pleural effusion. There are degenerative changes of the spine. XR/XR chest 2V IMPRESSION: New moderate left pleural effusion atelectasis or consolidation of the left lung base.
[2021-07-25 15:10] LABS: MANUAL DIFF FLAG NO
[2021-07-25 15:29] LABS: Basophils Percent Auto 0.3 % (0-2); Eosinophils Absolute Auto 0.7 X10*3/uL (0.0-0.4); Eosinophils Percent Auto 5.5 % (0-4); Hematocrit 33.5 % (42.0-52.0); Hemoglobin 10.5 g/dl (14.0-18.0); Imm Gran Abs Auto 0.08 X10*3/uL (0.00-0.03); Imm Gran Pct Auto 0.7 % (0.0-0.4); Lymphocytes Absolute Auto 2.4 X10*3/uL (1.2-4.9); Lymphocytes Percent Auto 19.7 % (20-40); Mean Corpuscular HGB Conc 31.3 g/dl (31.0-36.0); Mean Corpuscular Hemoglobin 29.4 pg (27.0-33.0); Mean Corpuscular Volume 93.8 fL (80.0-98.0); Mean Platelet Volume 9.9 fL (9.4-12.4); Monocytes Absolute Auto 1.2 X10*3/uL (0.1-1.2); Monocytes Percent Auto 10.2 % (2-11); Neutrophils Absolute Auto 7.6 x10*3/uL (2.0-8.3); Neutrophils Percent Auto 63.6 % (45-73); Platelet Count 428 X10*3/uL (160-400); Red Blood Count 3.57 X10*6/uL (4.60-5.80); Red Cell Distribution Width 13.3 % (11.0-16.0); White Blood Count 11.9 X10*3/uL (4.8-10.8)
[2021-07-25 15:52] LABS: Alanine Aminotransferase 27 U/L (0-40); Albumin Level 3.4 g/dL (3.5-5.0); Alkaline Phosphatase 100 U/L (39-117); Anion Gap 15 (12-20); Aspartate Amino Transferase 19 U/L (5-37); Bilirubin Total 0.2 mg/dL (0.0-1.0); Blood Urea Nitrogen 23 mg/dL (9-16); Carbon Dioxide 24 mmol/L (22-29); Chloride 106 mmol/L (96-108); Estimated Glomerular Filt Rate 50; Glucose Random 123 mg/dL (60-115); Potassium 4.6 mmol/L (3.3-5.1); Sodium 140 mmol/L (135-145); Total Protein 6.5 g/dL (6.5-8.0)
[2021-07-25 15:54] LABS: B Type Natriuretic Peptide 105 pg/mL (<100)
== END 2021-07-25 14:00 | disposition home or self-care (01) ==
LOC: HO.XRAY 13:59
PROVIDERS: PCP Internal Medicine Medical Oncology; Visit Provider Nurse Practitioner Family
DX: R07.9 Chest pain, unspecified (principal); R06.02 Shortness of breath; R77.8 Other specified abnormalities of plasma proteins
CPT/HCPCS: 36415; 71046; 80053; 83880; 85025; 99212

== ENCOUNTER 2021-08-10 08:58 | Outpatient (REF) | payer MEDICARE, SELFPAY ==
--- NOTE | ~2021-08-10 | XR_ITS ---
EXAMINATION: XR CHEST CLINICAL INFORMATION: Question left lower lobe collapse COMPARISON: 07/25/2021 TECHNIQUE: 2 views of the chest were obtained. FINDINGS: Stable moderate left pleural effusion with accompanying atelectasis. Right lung pleural space are clear. Normal heart size and pulmonary vascularity. Aorta is atherosclerotic. XR/XR chest 4 views IMPRESSION: Stable moderate left pleural effusion with accompanying atelectasis.
== END 2021-08-10 08:59 | disposition home or self-care (01) ==
LOC: HO.XRAY 08:58
PROVIDERS: PCP Internal Medicine Medical Oncology; Visit Provider Internal Medicine Medical Oncology
DX: R06.00 Dyspnea, unspecified (principal)
CPT/HCPCS: 71048

== ENCOUNTER 2021-08-10 11:01 | Inpatient (IN) | payer MEDICARE, SELFPAY ==
--- NOTE | ~2021-08-10 | XR_ITS ---
EXAMINATION: XR CHEST CLINICAL INFORMATION: Shortness of breath COMPARISON: Chest x-ray 08/10/2021, 9:47 AM TECHNIQUE: Frontal view of the chest was obtained. 1705 hours FINDINGS: Persistent blunting of left costophrenic angle and silhouetting left diaphragm due to the moderate volume left pleural effusion. Persistent atelectasis at left lung base. No right-sided pleural effusion. No acute airspace opacities. No pulmonary vascular congestion. Cardiac mediastinal contours are unchanged. XR/XR chest 1V IMPRESSION: Persistent moderate volume left pleural effusion and left basilar atelectasis. No significant change since prior chest x-ray this a.m.
--- NOTE | ~2021-08-10 | CT_ITS ---
EXAMINATION: CT ANGIOGRAM OF THE CHEST WITH AND WITHOUT CONTRAST (CT PULMONARY ANGIOGRAM FOR PE) CLINICAL INFORMATION: Reason for Exam elevated D-dimer and shortness of breath COMPARISON: Chest radiograph earlier this evening TECHNIQUE: Prior to contrast administration, noncontrast localization images were obtained. Subsequently, multidetector volumetric imaging was performed from the thoracic inlet to below the diaphragms following the administration of 65 mL Omnipaque 350 intravenous contrast. No contrast reaction reported Sagittal, coronal, and MIP oblique sagittal reformatted images were obtained on the CT workstation, uploaded to PACS, and reviewed. This CT examination was performed using dose optimization techniques as appropriate, variously including the following: *Automated exposure control *Adjustment of mA and/or kV according to patient size (this includes techniques or standardized protocols for targeted exams where dose is matched to indication/reason for exam; i.e. extremities or head) *Use of iterative reconstruction technique Total exam dose-length product 540 mGy-cm FINDINGS: QUALITY OF STUDY/CONTRAST BOLUS: Suboptimal. The bolus is less than optimal and there is marked motion artifact PULMONARY ARTERIES: No central or large proximal pulmonary emboli. Beyond this, no comment can be made THORACIC AORTA: No aneurysm or dissection. LUNGS AND PLEURA: There is a moderate left pleural effusion, predominantly subpulmonic with associated lower lobe atelectasis. No lung masses. No gross consolidation. MEDIASTINUM: Normal heart size. No pericardial effusion. No hilar or mediastinal lymphadenopathy. No evidence of septal bowing or right heart strain. Coronary artery calcifications are present. CHEST WALL/AXILLA: No axillary or internal mammary lymphadenopathy. OSSEOUS STRUCTURES: No acute or suspicious osseous abnormality. UPPER ABDOMEN: A 2.2 cm benign left renal cyst is seen which needs no further imaging or follow-up. No reflux of contrast into the hepatic veins to suggest elevated right heart pressures. CT/CT angio chest PE protocol IMPRESSION: 1. Extremely limited exam. No central or large proximal emboli are present. 2. Moderate left pleural effusion with left lower lobe collapse/atelectasis. VTE: indeterminate
[2021-08-10 11:37] VITALS: BP 155/67; PULSE 108; RESP 20; TEMP 36.6; O2SAT 94; BMI 34.5
--- NOTE | 2021-08-10 15:32 | ECG_ITS ---
Test Reason : shortness of breath Blood Pressure : / mmHG Vent. Rate : 100 BPM Atrial Rate : 100 BPM P-R Int : 188 ms QRS Dur : 134 ms QT Int : 374 ms P-R-T Axes : 045 -69 044 degrees QTc Int : 482 ms Sinus rhythm with occasional Premature ventricular complexes Left axis deviation Right bundle branch block Abnormal ECG When compared with ECG of 14-JUN-2021 07:41, Premature ventricular complexes are now Present Referred By: Salena Mello Electronically Signed By:Davonte Moore
--- NOTE | 2021-08-10 16:51 | ED_ITS ---
HPI - SOB/Dyspnea General Chief Complaint: Dyspnea Stated Complaint: DIFF BREATHING Time Seen by Provider: 08/10/21 15:31 Source: patient and family (daughter) Mode of arrival: ambulatory Limitations: no limitations History of Present Illness HPI Narrative: this is 86 yo male walked to the ED for evaluation of SOB. symptoms started about one month ago, more or less constant, exacerbated by exertion, and improved with rest, associated with bilateral LE swelling but no cp, no orthopnea, no PND, also patient reported coughing with clear sputum production but no fever or chills . had similar symptoms last month except it was accompained with cp, had nuclear stress test then that was equivocal for mild ischemia. patient recieved Moderna vaccination x 3. decline any recent sick contact or recent travel. Related Data Home Medications Medication Instructions Recorded Confirmed doxazosin 2 mg tablet 2 mg PO DAILY 06/14/21 07/25/21 furosemide 20 mg tablet 20 mg PO DAILY 06/14/21 07/25/21 ipratropium 20 mcg-albuterol 100 1 puff INHALATION Q6H PRN 06/14/21 07/25/21 mcg/actuation mist for inhalation (Combivent Respimat) loratadine 10 mg tablet 10 mg PO DAILY 06/14/21 07/25/21 metformin 500 mg tablet 500 mg PO BID 06/14/21 07/25/21 mometasone (Asmanex Twisthaler) 1 inh INHALATION BID 06/14/21 07/25/21 multivitamin 1 tab PO DAILY 06/14/21 07/25/21 omeprazole 20 mg capsule,delayed 20 mg PO DAILY 06/14/21 07/25/21 release psyllium 2 packet PO DAILY 06/14/21 07/25/21 tramadol 50 mg tablet 50 mg PO BID PRN 06/14/21 07/25/21 valsartan 320 mg tablet 320 mg PO DAILY 06/14/21 07/25/21 zafirlukast 20 mg tablet 20 mg PO BID 06/14/21 07/25/21 Previous Rx's Medication Instructions Recorded atorvastatin 40 mg tablet 40 mg PO BEDTIME 30 Days #30 tab 06/16/21 Allergies Allergy/AdvReac Type Severity Reaction Status Date / Time No Known Allergies Allergy Verified 07/25/21 14:11 Review of Systems Review of Systems: All other systems are reviewed and are negative Constitutional: Reports as per HPI and Reports no additional constitutional complaints Eyes: Reports as per HPI and Reports no additional eye complaints Reports system reviewed and no additional complaints, except as documented Cardiovascular: Reports as per HPI and Reports no additional cardiovascular complaints Respiratory: Reports as per HPI and Reports no additional respiratory complaints Gastrointestinal: Reports as per HPI and Reports no additional gastrointestinal complaints Genitourinary: Reports no additional female genitourinary complaints Musculoskeletal: Reports no additional musculoskeletal complaints Skin/Breast: Reports system reviewed and no additional complaints, except as docu Psychiatric: Reports no additional psychiatric complaints Endocrine: Reports no additional endocrine complaints Hematologic/Lymphatic: Reports no additional hematologic/lymphatic complaints Allergic/Immunologic: Reports no additional allergic/immunologic complaints Reports system reviewed and no additional complaints, except as documented and Reports Abnormal speech present COUNTS INCLUDE 234 BEDS AT THE [facility] Past Medical History Medical History Arthritis Diabetes Emphysema of lung Hypertension Surgical History History of knee replacement (09/30/12) Family History Family History Father No problems noted. Mother Cancer Brother No problems noted. Daughter No problems noted. Social History Social History Household Members: None Housing: House Do you presently have visiting nurse or other home services: No Alcohol intake: former Patient Tobacco Use Status: Former Tobacco user Quit Date: 30 years ago Tobacco use type: Cigarette Advance Directives: Yes Advance Directives Information Provided: Yes Advance Directives on File: No service: Yes Current occupational status: retired Physical Exam Vital Signs: Vital Signs: Last Vital Signs Temp 98.5 F 08/10/21 19:24 Pulse 89 08/10/21 19:24 Resp 23 H 08/10/21 19:24 BP 158/61 H 08/10/21 19:24 Pulse Ox 96 08/10/21 19:24 BMI result Body Mass Index 34.5 vital signs have been reviewed as appeared to be correct. Blood pressure normal. Heart rate Elevated. Respiration rate normal. Temperature normal. Oxygen saturation normal. Appearance: Alert. Oriented X3. No acute distress. Head: Normal external exam. Normocephalic. Atraumatic. No Lee signs noted. No raccoon eyes noted Eyes: PERRLA. EOMI. Conjunctiva and sclera normal. Eyelids normal. ENT: TM's Normal. Pharynx normal. Uvula midline. Moist mucous membranes. No trismus noted. No drooling noted. No muffled voice noted. Neck: Normal inspection. Neck supple. FROM. No adenopathy. Thyroid Normal. No meningeal signs. No neck mass noted. CVS: Normal heart rate and rhythm. Heart sound normal. No murmurs noted. Pulses normal throughout. Respiratory: No respiratory distress. Painless inspiration. Breath sounds normal. No wheezes/rales/rhonchi noted. Chest nontender. No accessory muscle usage noted or decreased air movement noted. Abdomen: Soft and nontender. Bowel sounds normal in all 4 quadrants. No distention noted. No organomegaly noted. No visible injury noted. Back: No CVA tenderness. Full range of motion noted. Skin: Skin warm and dry. Normal skin color. Normal skin turgor. No rashes/lesions/lacerations noted. Extremities: +2 lower extremity edema. Extremities exhibit normal range of motion. Extremities nontender. Neuro: Oriented X 3. Cranial nerve exam: II-XII are grossly intact No motor deficit. No sensory deficit. Reflexes normal. Course Course Course Narrative: ASSESSMENT AND PLAN. 86-year-old male came in for progressive worsening of exertional dyspnea for the past 4 weeks, physical exam/ x-ray show left pleural effusion moderate size which could contribute to patient's symptoms, elevated D-dimer indicated CT and of the chest to rule out PE. patient received IV hydration to help contrast excretion. Will admit the patient for further evaluation of left pleural effusion and poss ible drainage by IR tomorrow. MDM - SOB/Dyspnea Medical Records Attestation: I reviewed the patient's medical records. Lab Data Attestation: I reviewed the patient's lab results. Result diagrams: 08/10/21 17:19 08/10/21 17:36 Labs: Lab Results 08/10/21 08/10/21 08/10/21 Range/Units 17:19 17:19 17:19 WBC 10.8 (4.8-10.8) X10*3/uL RBC 3.50 L (4.60-5.80) X10*6/uL Hgb 10.2 L (14.0-18.0) g/dl Hct 32.3 L (42.0-52.0) % MCV 92.3 (80.0-98.0) fL MCH 29.1 (27.0-33.0) pg MCHC 31.6 (31.0-36.0) g/dl RDW 14.0 (11.0-16.0) % Plt Count 396 (160-400) X10*3/uL MPV 10.1 (9.4-12.4) fL Immature Gran % (Auto) 0.5 H (0.0-0.4) % Neut % (Auto) 62.2 (45-73) % Lymph % (Auto) 21.1 (20-40) % [place] % (Auto) 10.0 (2-11) % Eos % (Auto) 5.8 H (0-4) % Baso % (Auto) 0.4 (0-2) % Lymph # (Auto) 2.3 (1.2-4.9) X10*3/uL [place] # (Auto) 1.1 (0.1-1.2) X10*3/uL Eos # (Auto) 0.6 H (0.0-0.4) X10*3/uL Baso # (Auto) 0.0 (0.0-0.2) X10*3/uL Abs Immat Gran (auto) 0.05 H (0.00-0.03) X10*3/uL Absolute Neuts (auto) 6.7 (2.0-8.3) x10*3/uL Absolute Nucleated RBC 0.000 (0.0-0.012) X10*3/uL Nucleated RBC % (auto) 0.0 (0.0-0.2) /100WBC PT 13.8 H (9.9-13.0) SEC INR 1.2 H (0.9-1.1) APTT 35.6 (24.1-38.0) SEC D-Dimer High Sensitivty 1243 NG/ML Sodium (135-145) mmol/L Potassium (3.3-5.1) mmol/L Chloride (96-108) mmol/L Carbon Dioxide (22-29) mmol/L Anion Gap (12-20) BUN (9-16) mg/dL Creatinine (0.5-1.4) mg/dL Estim Creat Clear Calc Estimated GFR Random Glucose (60-115) mg/dL Calcium (8.4-10.2) mg/dL Magnesium (1.6-2.6) mg/dL Total Bilirubin (0.0-1.0) mg/dL Direct Bilirubin (0.0-0.5) mg/dL AST (5-37) U/L ALT (0-40) U/L Alkaline Phosphatase (39-117) U/L Troponin I High Sens (<3.5-35.0) ng/L B-Natriuretic Peptide (<100) pg/mL Total Protein (6.5-8.0) g/dL Albumin (3.5-5.0) g/dL COVID-19 (AZAEL) Negative (Negative) COVID-19 Clin Com See Note 08/10/21 08/10/21 Range/Units 17:36 17:36 WBC (4.8-10.8) X10*3/uL RBC (4.60-5.80) X10*6/uL Hgb (14.0-18.0) g/dl Hct (42.0-52.0) % MCV (80.0-98.0) fL MCH (27.0-33.0) pg MCHC (31.0-36.0) g/dl RDW (11.0-16.0) % Plt Count (160-400) X10*3/uL MPV (9.4-12.4) fL Immature Gran % (Auto) (0.0-0.4) % Neut % (Auto) (45-73) % Lymph % (Auto) (20-40) % [place] % (Auto) (2-11) % Eos % (Auto) (0-4) % Baso % (Auto) (0-2) % Lymph # (Auto) (1.2-4.9) X10*3/uL [place] # (Auto) (0.1-1.2) X10*3/uL Eos # (Auto) (0.0-0.4) X10*3/uL Baso # (Auto) (0.0-0.2) X10*3/uL Abs Immat Gran (auto) (0.00-0.03) X10*3/uL Absolute Neuts (auto) (2.0-8.3) x10*3/uL Absolute Nucleated RBC (0.0-0.012) X10*3/uL Nucleated RBC % (auto) (0.0-0.2) /100WBC PT (9.9-13.0) SEC INR (0.9-1.1) APTT (24.1-38.0) SEC D-Dimer High Sensitivty NG/ML Sodium 141 (135-145) mmol/L Potassium 4.6 (3.3-5.1) mmol/L Chloride 105 (96-108) mmol/L Carbon Dioxide 28 (22-29) mmol/L Anion Gap 13 (12-20) BUN 17 H (9-16) mg/dL Creatinine 1.05 (0.5-1.4) mg/dL Estim Creat Clear Calc 66.3 Estimated GFR > 60 Random Glucose 135 H (60-115) mg/dL Calcium 9.2 (8.4-10.2) mg/dL Magnesium 1.5 L (1.6-2.6) mg/dL Total Bilirubin 0.4 (0.0-1.0) mg/dL Direct Bilirubin 0.2 (0.0-0.5) mg/dL AST 14 (5-37) U/L ALT 16 (0-40) U/L Alkaline Phosphatase 91 (39-117) U/L Troponin I High Sens 29.5 D (<3.5-35.0) ng/L B-Natriuretic Peptide 89 (<100) pg/mL Total Protein 6.3 L (6.5-8.0) g/dL Albumin 3.3 L (3.5-5.0) g/dL COVID-19 (AZAEL) (Negative) COVID-19 Clin Com Imaging Data Chest x-ray: Attestation: I personally reviewed and interpreted this imaging study as follows: Radiologist's impression: Persistent moderate volume left pleural effusion and left basilar atelectasis. No significant change since prior chest x-ray this a.m. ? CT angio of the chest: Attestation: I personally reviewed and interpreted this imaging study as follows: Radiologist's impression: 1.? Extremely limited exam. No central or large proximal emboli are present. 2.? Moderate left pleural effusion with left lower lobe collapse/atelectasis. ECG Data Attestation: I personally reviewed and interpreted this ECG as follows: Interpretation: sinus rhythm at 100 beats per minutes, occasional PVCs, left axis deviation, right bundle branch block. Discharge Plan Discharge Clinical Impression: Shortness of breath, Pleural effusion on left Patient Disposition: Admitted As Inpatient Prescriptions: No Action metformin 500 mg Tablet 500 mg PO BID 0RF valsartan 320 mg Tablet 320 mg PO DAILY 0RF zafirlukast 20 mg Tablet 20 mg PO BID 0RF furosemide 20 mg Tablet 20 mg PO DAILY 0RF loratadine 10 mg Tablet 10 mg PO DAILY 0RF doxazosin 2 mg Tablet 2 mg PO DAILY 0RF Asmanex Twisthaler 220 mcg/ actuation (60) Aerosol Powdr Breath Activated 1 inh INHALATION BID 0RF psyllium Packet 2 packet PO DAILY 0RF tramadol 50 mg Tablet 50 mg PO BID PRN (Reason: Pain) 0RF omeprazole 20 mg Capsule,Delayed Release(Dr/Ec) 20 mg PO DAILY 0RF Combivent Respimat 20-100 mcg/actuation Mist 1 puff INHALATION Q6H PRN (Reason: Wheezing) 0RF multivitamin Tablet 1 tab PO DAILY 0RF atorvastatin 40 mg Tablet 40 mg PO BEDTIME 30 Days Qty: 30 0RF
[2021-08-10 17:23] VITALS: BP 158/75; PULSE 98; RESP 18; O2SAT 97
[2021-08-10 17:26] LABS: MANUAL DIFF FLAG NO
[2021-08-10 17:27] LABS: Basophils Percent Auto 0.4 % (0-2); Eosinophils Absolute Auto 0.6 X10*3/uL (0.0-0.4); Eosinophils Percent Auto 5.8 % (0-4); Hematocrit 32.3 % (42.0-52.0); Hemoglobin 10.2 g/dl (14.0-18.0); Imm Gran Abs Auto 0.05 X10*3/uL (0.00-0.03); Imm Gran Pct Auto 0.5 % (0.0-0.4); Lymphocytes Absolute Auto 2.3 X10*3/uL (1.2-4.9); Lymphocytes Percent Auto 21.1 % (20-40); Mean Corpuscular HGB Conc 31.6 g/dl (31.0-36.0); Mean Corpuscular Hemoglobin 29.1 pg (27.0-33.0); Mean Corpuscular Volume 92.3 fL (80.0-98.0); Mean Platelet Volume 10.1 fL (9.4-12.4); Monocytes Absolute Auto 1.1 X10*3/uL (0.1-1.2); Neutrophils Absolute Auto 6.7 x10*3/uL (2.0-8.3); Neutrophils Percent Auto 62.2 % (45-73); Platelet Count 396 X10*3/uL (160-400); White Blood Count 10.8 X10*3/uL (4.8-10.8)
--- NOTE | 2021-08-10 17:31 | PC.NURSE ---
Pt states he's had [place] with some CP for a few days. SHort distances cause him to stop and catch his breath. Was told by PCP to increase lasix from 2 tabs to 3. Has plus 3 pitting edmea BLE to shins. LS CTA but dim. spking full sentences reports productive yellow cough. denies body aches./fevers.
[2021-08-10 17:47] LABS: INTERNATIONAL NORM RATIO 1.2 (0.9-1.1); Prothrombin Time 13.8 SEC (9.9-13.0)
[2021-08-10 17:50] LABS: Partial Thromboplastin Time 35.6 SEC (24.1-38.0)
[2021-08-10 17:55] LABS: COVID-19 Test Negative (Negative)
[2021-08-10 18:01] LABS: Alanine Aminotransferase 16 U/L (0-40); Albumin Level 3.3 g/dL (3.5-5.0); Alkaline Phosphatase 91 U/L (39-117); Anion Gap 13 (12-20); Aspartate Amino Transferase 14 U/L (5-37); Bilirubin Direct 0.2 mg/dL (0.0-0.5); Bilirubin Total 0.4 mg/dL (0.0-1.0); Blood Urea Nitrogen 17 mg/dL (9-16); Calcium 9.2 mg/dL (8.4-10.2); Carbon Dioxide 28 mmol/L (22-29); Chloride 105 mmol/L (96-108); Creatinine Clr Calc Pharmacy 66.3; Estimated Glomerular Filt Rate > 60; Glucose Random 135 mg/dL (60-115); Magnesium 1.5 mg/dL (1.6-2.6); Potassium 4.6 mmol/L (3.3-5.1); Sodium 141 mmol/L (135-145); Total Protein 6.3 g/dL (6.5-8.0)
[2021-08-10 18:04] LABS: B Type Natriuretic Peptide 89 pg/mL (<100); Troponin-I High Sensitivity 29.5 ng/L (<3.5-35.0)
[2021-08-10 18:39] LABS: D Dimer High Sensitivity 1243 NG/ML
[2021-08-10] MEDS: 0.9 % Sodium Chloride 1,000 ML 999 ML IV (18:56)
[2021-08-10 19:24] VITALS: BP 158/61; PULSE 89; RESP 23; TEMP 36.9; O2SAT 96
[2021-08-10] MEDS: iohexoL 350 MG/ML 100 ML INFUS..BTL IV (19:29)
[2021-08-10 20:00] VITALS: BP 148/77; PULSE 93; RESP 14; O2SAT 95
--- NOTE | 2021-08-10 21:43 | PHA.MEDREC ---
Pharmacy Consult ? Medication Reconciliation Pharmacy has completed the medication reconciliation.
[2021-08-10 22:29] VITALS: BP 134/56; PULSE 90; RESP 18; O2SAT 94
--- NOTE | 2021-08-10 22:56 | PM.IMHP ---
History of Present Illness Date of Service: 08/10/21 Chief Complaint: SOB this is an 86-year-old male with past medical history of arthritis, diabetes, COPD, hypertension who presents to the hospital with complaints of worsening shortness of breath. Patient reports that he has been having shortness of breath since May but has now worsened. He is complaining of op knee a, PND, lower extremity edema. He denies any chest pain, no palpitations, he saw his PCP yesterday who increased his Lasix by an extra pill but he reports that he continues to have shortness of breath. He denies any abdominal pain, no nausea or vomiting, no diarrhea constipation, no urinary symptoms and no lower extremity. No dizziness headache or change in vision. he reports that he did chest x-ray with his primary care doctor yesterday and he was asked to come to the hospital today as a found fluid in his chest. Of note patient was discharged from the hospital on 06 16 after being treated for ACS. He was treated with therapeutic Lovenox. His echo at that time showed ejection fraction of 60-65%. He underwent nuclear stress test with equivocal findings. He was to follow-up outpatient. On arrival to the ED patient with dynamic least stable with a heart rate of 108 that normalized, blood pressure slightly elevated otherwise satting 97% on room air Labs are significant for WBC count 10.8, hemoglobin of 10.2, hematocrit 32.3 which is around his baseline, PT of 13.8, INR of 1.2, BUN of 17, creatinine of 1.05, troponin of 29.5, BNP of 89, CT angiogram showed limited exam, no central or large proximal emboli, moderate left pleural effusion with left lower lobe collapse /atelectasis patient will be admitted for further management Review of Systems Review of Systems: Yes all other systems are reviewed and are negative [facility] Medical History Arthritis Diabetes Emphysema of lung Hypertension Family History Father No problems noted. Mother Cancer Brother No problems noted. Daughter No problems noted. Surgical History History of knee replacement (09/30/12) Social History Household Members: None Housing: House Do you presently have visiting nurse or other home services: No Alcohol intake: former Patient Tobacco Use Status: Former Tobacco user Quit Date: 30 years ago Tobacco use type: Cigarette Advance Directives: Yes Advance Directives Information Provided: Yes Advance Directives on File: No service: Yes Current occupational status: retired Meds Allergies Allergy/AdvReac Type Severity Reaction Status Date / Time No Known Allergies Allergy Verified 07/25/21 14:11 Active Medications: Current Medications Acetaminophen (Acetaminophen 325 Mg Tablet) 650 mg PO Q6H PRN PRN Reason: Pain, Mild (Pain Scale 1-3) Docusate Sodium (Docusate Sodium 100 Mg Capsule) 100 mg PO DAILY PRN PRN Reason: Constipation Furosemide (Furosemide 40 Mg/4 Ml Vial) 40 mg IVPUSH Q12H JOSE; Protocol Ondansetron HCl (Ondansetron Hcl 4 Mg/2 Ml Vial) 4 mg IVPUSH Q8H PRN PRN Reason: Nausea and Vomiting Sodium Chloride (0.9 % Sodium Chloride Flush 3 Ml Syringe) [address] [facility] Home Medications Medication Instructions Recorded Confirmed Last Taken Type doxazosin 2 mg tablet 2 mg PO DAILY 06/14/21 08/10/21 06/13/21 History furosemide 20 mg tablet 20 mg PO DAILY 06/14/21 08/10/21 06/13/21 History ipratropium 20 mcg-albuterol 100 1 puff INHALATION Q6H PRN 06/14/21 08/10/21 06/13/21 History mcg/actuation mist for inhalation (Combivent Respimat) loratadine 10 mg tablet 10 mg PO DAILY 06/14/21 08/10/21 06/13/21 History metformin 500 mg tablet 500 mg PO BID 06/14/21 08/10/21 06/13/21 History mometasone (Asmanex Twisthaler) 1 inh INHALATION BID 06/14/21 08/10/21 06/13/21 History multivitamin 1 tab PO DAILY 06/14/21 08/10/21 06/13/21 History omeprazole 20 mg capsule,delayed 20 mg PO DAILY 06/14/21 08/10/21 06/13/21 History release psyllium 2 packet PO DAILY 06/14/21 08/10/21 06/13/21 History tramadol 50 mg tablet 50 mg PO BID PRN 06/14/21 08/10/21 Unknown History valsartan 320 mg tablet 320 mg PO DAILY 06/14/21 08/10/21 06/13/21 History zafirlukast 20 mg tablet 20 mg PO BID 06/14/21 08/10/21 06/13/21 History metoprolol tartrate 25 mg tablet 1 tab PO BID 08/10/21 08/10/21 Unknown History Physical Exam Vital Signs and Narrative: Vital Signs: Last Vital Signs Temp 98.5 F 08/10/21 19:24 Pulse 90 08/10/21 22:29 Resp 18 08/10/21 22:29 BP 134/56 L 08/10/21 22:29 Pulse Ox 94 08/10/21 22:29 BMI result Body Mass Index 34.5 Const: General: cooperative and no acute distress Orientation/consciousness: patient oriented x3 Eyes: General: appearance normal, both eyes and all related structures Pupils: Equal, round and reactive pupils present Resp: Other: crackles worse on the left lower region Effort & Inspection: normal respiratory effort Cardio: Rate: regular rate Rhythm: regular rhythm GI: Palpation (GI): Soft to palpation Auscultation: normal bowel sounds Skin: General skin exam: no rashes or lesions noted Neuro: General: patient oriented x3 Cranial nerves: Yes Equal, round and reactive pupils present Cognition (Neuro): normal cognition Extrem: Other: 3+ pitting edema in the lower extremity, Glossing of skin Results Labs CBC and Chem 7: 08/10/21 17:19 08/10/21 17:36 Labs: Laboratory Results - last 24 hr 08/10/21 08/10/21 08/10/21 17:19 17:19 17:19 MCV 92.3 MCH 29.1 MCHC 31.6 RDW 14.0 Plt Count 396 MPV 10.1 Immature Gran % (Auto) 0.5 H Neut % (Auto) 62.2 Lymph % (Auto) 21.1 [place] % (Auto) 10.0 Eos % (Auto) 5.8 H Baso % (Auto) 0.4 Lymph # (Auto) 2.3 [place] # (Auto) 1.1 Eos # (Auto) 0.6 H Baso # (Auto) 0.0 Abs Immat Gran (auto) 0.05 H Absolute Neuts (auto) 6.7 Absolute Nucleated RBC 0.000 Nucleated RBC % (auto) 0.0 PT 13.8 H INR 1.2 H APTT 35.6 D-Dimer High Sensitivty 1243 Anion Gap Estim Creat Clear Calc Estimated GFR Random Glucose Calcium Magnesium Total Bilirubin Direct Bilirubin AST ALT Alkaline Phosphatase B-Natriuretic Peptide Total Protein Albumin COVID-19 (AZAEL) Negative COVID-19 Clin Com See Note 08/10/21 08/10/21 17:36 17:36 MCV MCH MCHC RDW Plt Count MPV Immature Gran % (Auto) Neut % (Auto) Lymph % (Auto) [place] % (Auto) Eos % (Auto) Baso % (Auto) Lymph # (Auto) [place] # (Auto) Eos # (Auto) Baso # (Auto) Abs Immat Gran (auto) Absolute Neuts (auto) Absolute Nucleated RBC Nucleated RBC % (auto) PT INR APTT D-Dimer High Sensitivty Anion Gap 13 Estim Creat Clear Calc 66.3 Estimated GFR > 60 Random Glucose 135 H Calcium 9.2 Magnesium 1.5 L Total Bilirubin 0.4 Direct Bilirubin 0.2 AST 14 ALT 16 Alkaline Phosphatase 91 B-Natriuretic Peptide 89 Total Protein 6.3 L Albumin 3.3 L COVID-19 (AZAEL) COVID-19 Clin Com Imaging Radiologist's Impressions: Impressions Chest X-Ray 08/10/21 17:07 IMPRESSION: Persistent moderate volume left pleural effusion and left basilar atelectasis. No significant change since prior chest x-ray this a.m. Chest CTA 08/10/21 19:29 IMPRESSION: 1. Extremely limited exam. No central or large proximal emboli are present. 2. Moderate left pleural effusion with left lower lobe collapse/atelectasis. VTE: indeterminate Assessment and Plan (1) Pleural effusion on left: Status: Acute (2) Shortness of breath: Status: Acute (3) Lower extremity edema: Status: Acute Plan use 6-year-old male with past medical history of diabetes, hypertension, and recent ACS presents to the hospital with complaints of shortness of breath found to have left pleural effusion # acute worsening dyspnea - likely secondary to the pleural effusion found in the left lower lobe, versus CHF exacerbation - clinically appears to be volume overloaded although BNP is not elevated - will treat with IV Lasix, consult Cardiology, monitor respiratory status # CHF exacerbation - has clinical evidence of volume overload including dyspnea, orthopnea, PND, lower extremity edema - chest x-ray with pleural effusion - echo from May showed ejection fraction of 60-65%, patient on Lasix 20 mg daily at home - will treat with IV Lasix, daily weight, strict I&O, low-sodium diet - consult cardiology # pleural effusion - was seen on chest x-ray in July 25 but was not present in May - likely secondary to CHF - will consult pulmonology for possible thoracocentesis - monitor I&O # diabetes - stable - hold metformin, - will start low-dose sliding scale insulin - diabetic diet # hypertension - stable - continue home medications DVT prophylaxis: scds in anticipation of thoracocentesis Quality Stroke Does the patient have a stroke diagnosis?: No VTE Prior VTE?: No VTE Risk Level:: Medical - moderate - high VTE Device Contraindication: N/A - Device Ordered VTE Drug Contraindication: Treatment Not Indicated
[2021-08-10] MEDS: Atorvastatin Calcium 40 MG TABLET PO (23:40)
[2021-08-10] MEDS: Furosemide 40 MG/4 ML VIAL IVPUSH (23:41)
[2021-08-10] MEDS: 0.9 % Sodium Chloride Flush 3 ML SYRINGE IVFLUSH (23:46)
[2021-08-11] VITALS (8 sets, daily range): BP systolic 125–161; BP diastolic 41–73; PULSE 51–96; RESP 18–24; TEMP 36.4–37.1; O2SAT 93–96
[2021-08-11 07:12] LABS: Glucose, Whole Blood 152 mg/dL (60-115)
[2021-08-11 07:36] LABS: MANUAL DIFF FLAG NO
[2021-08-11 07:40] LABS: Basophils Percent Auto 0.3 % (0-2); Eosinophils Absolute Auto 0.6 X10*3/uL (0.0-0.4); Eosinophils Percent Auto 6.3 % (0-4); Hematocrit 28.7 % (42.0-52.0); Hemoglobin 9.2 g/dl (14.0-18.0); Imm Gran Abs Auto 0.04 X10*3/uL (0.00-0.03); Imm Gran Pct Auto 0.4 % (0.0-0.4); Lymphocytes Absolute Auto 1.6 X10*3/uL (1.2-4.9); Lymphocytes Percent Auto 17.7 % (20-40); Mean Corpuscular HGB Conc 32.1 g/dl (31.0-36.0); Mean Corpuscular Hemoglobin 28.8 pg (27.0-33.0); Mean Corpuscular Volume 89.7 fL (80.0-98.0); Mean Platelet Volume 9.7 fL (9.4-12.4); Monocytes Absolute Auto 0.9 X10*3/uL (0.1-1.2); Monocytes Percent Auto 10.2 % (2-11); Neutrophils Absolute Auto 5.8 x10*3/uL (2.0-8.3); Neutrophils Percent Auto 65.1 % (45-73); Platelet Count 387 X10*3/uL (160-400); Red Cell Distribution Width 13.9 % (11.0-16.0); White Blood Count 8.9 X10*3/uL (4.8-10.8)
[2021-08-11 07:55] LABS: Anion Gap 10 (12-20); Blood Urea Nitrogen 17 mg/dL (9-16); Calcium 8.7 mg/dL (8.4-10.2); Carbon Dioxide 28 mmol/L (22-29); Chloride 105 mmol/L (96-108); Creatinine Clr Calc Pharmacy 67.5; Estimated Glomerular Filt Rate > 60; Glucose Random 149 mg/dL (60-115); Sodium 139 mmol/L (135-145)
[2021-08-11] MEDS: Omeprazole 20 MG CAPSULE.DR PO (08:32)
[2021-08-11] MEDS: Metoprolol Tartrate 25 MG TABLET PO (08:32)
[2021-08-11] MEDS: Doxazosin Mesylate 2 MG TABLET PO (08:32)
[2021-08-11] MEDS: Loratadine 10 MG TABLET PO (08:32)
[2021-08-11] MEDS: Multivitamin TABLET 1 TAB PO (08:32)
[2021-08-11] MEDS: Insulin Lispro 100 UNIT/ML 3 ML VIAL SUBCUT ×3 (08:33→18:37)
[2021-08-11] MEDS: Valsartan 320 MG TABLET PO (08:33)
--- NOTE | 2021-08-11 09:54 | P.CDIC_ITS ---
CDI Concurrent Query Documentation Clarification: PHYSICIAN'S DOCUMENTATION REQUEST Date of Query: 08/11/21 0954 Patient Name: Adi Burleson Admit Date: 08/10/21 Dear Doctor, A review of the medical record indicates additional documentation may be needed. Please review below and update the documentation accordingly. Clinical Indicators: Risk Factors/Clinical Indicators/Treatments shortness of breath, bilateral lower extremity swelling 3+ CXR: L pleural effusion, LLL collapse BNP 89 On Lasix 20 mg daily at home Cardiology consult pending ECHO from May EF 60 - 65% Per H&P: Pleural effusion left vs CHF, CHF exacerbation Please provide further specificity regarding the most likely type and acuity of CHF you are evaluating, treating, or monitoring. Examples include: Type: * Systolic * Diastolic * Combined Systolic/Diastolic * Other ? please specify * Unable to determine Acuity: * Acute * Chronic * Acute on chronic * Unable to determine Use of terms such as suspected, likely, concern for, or probable (associated with a specific diagnosis that is being evaluated, monitored, or treated as if it exists) are acceptable and can be coded in the inpatient setting, when documented at the time of discharge. Thank you, Lauren Doran RN Extension: [phone] Please use your independent medical judgment in providing your response. THIS QUERY IS PART OF THE PERMANENT MEDICAL RECORD Provider Response: Other Other Diagnosis: Likely acute diastolic CHF
--- NOTE | 2021-08-11 10:57 | MHC.CM.PN ---
PT REPORTS HE LIVES ALONE AND IS FULLY INDEPENDENT. PT REPORTS HE USES A CANE AND HAS NO IN HOME SERVICES. PT SAYS HE ALSO HAS A WALKER AT HOME WHICH HE DOES NOT USE AT THIS TIME. PT HAS A HCP ON FILE AND HIS PCP IS MART [facility]. PT REPORTS HE HAS HAD THE MODERNA VACCINE AGAINST COVID-19 AND THE BOOSTER. IMM DELIVERED, ORIGINAL AT BEDSIDE, COPY SENT TO [facility] CURRENT DC PLAN IS HOME WITH NO SERVICES DAUGHTER TO TRANSPORT
--- NOTE | 2021-08-11 12:40 | P.CONCA_ITS ---
History of Present Illness History of Present Illness Date of Service: 08/11/21 Chief complaint: Pleural effusion Narrative: 86-year-old gentleman with background history of congestive heart failure presenting for shortness of breath and orthopnea. Clinically he was in heart failure and was admitted. Also noted to have pleural effusion. Feeling better with diuretics. Still volume overloaded. Denying any chest pain otherwise. He said his diuretic dose was decreased in the recent past. [facility] Past Medical History Medical History Arthritis Diabetes Emphysema of lung Hypertension Family History Family History Father No problems noted. Mother Cancer Brother No problems noted. Daughter No problems noted. Surgical History Surgical History History of knee replacement (09/30/12) Social History Social History Household Members: None Housing: House Do you presently have visiting nurse or other home services: No Alcohol intake: former Patient Tobacco Use Status: Former Tobacco user Quit Date: 30 years ago Tobacco use type: Cigarette Advance Directives: Yes Advance Directives Information Provided: Yes Advance Directives on File: No service: Yes Current occupational status: retired [email or web address] Allergies Allergy/AdvReac Type Severity Reaction Status Date / Time No Known Allergies Allergy Verified 07/25/21 14:11 Active Medications: Current Medications Acetaminophen (Acetaminophen 325 Mg Tablet) 650 mg PO Q6H PRN PRN Reason: Pain, Mild (Pain Scale 1-3) Albuterol/Ipratropium (Albuterol/Iprat 2.5/0.5mg 3 Ml Ampul.Neb) 3 ml INHALE RQ6H PRN PRN Reason: Wheezing Atorvastatin Calcium (Atorvastatin Calcium 40 Mg Tablet) 40 mg PO BEDTIME [facility]SE Last Admin: 08/10/21 23:40 Dose: 40 mg Documented by: Dextrose (Dextrose 50 % 25 Gm/50 Ml Syringe) 25 gm IVPUSH Q15M PRN; Protocol PRN Reason: per Hypoglycemia Standing Ord. Docusate Sodium (Docusate Sodium 100 Mg Capsule) 100 mg PO DAILY PRN PRN Reason: Constipation Doxazosin Mesylate (Doxazosin Mesylate 2 Mg Tablet) 2 mg PO DAILY [facility]; Protocol Last Admin: 08/11/21 08:32 Dose: 2 mg Documented by: Fluticasone/Vilanterol (Fluticasone/Vilanterol 200/25 Blst.W.Dev) 1 puff INHALE RDAILY [facility] Last Admin: 08/11/21 08:13 Dose: Not Given Documented by: Furosemide (Furosemide 40 Mg/4 Ml Vial) 40 mg IVPUSH Q12H [facility]; Protocol Last Admin: 08/10/21 23:41 Dose: 40 mg Documented by: Glucose (Glucose Gel 15 Gm Gel..Gram.) 15 gm PO Q15M PRN; Protocol PRN Reason: per Hypoglycemia Standing Ord. Insulin Human Lispro (Insulin Lispro 100 Unit/Ml 3 Ml Vial) 0 unit SUBCUT QIDACHS [facility]; Protocol Last Admin: 08/11/21 08:33 Dose: 2 unit Documented by: Loratadine (Loratadine 10 Mg Tablet) 10 mg PO DAILY [facility] Last Admin: 08/11/21 08:32 Dose: 10 mg Documented by: Metoprolol Tartrate (Metoprolol Tartrate 25 Mg Tablet) 25 mg PO BID [facility]; Protocol Last Admin: 08/11/21 08:32 Dose: 25 mg Documented by: Montelukast Sodium (Montelukast Sodium 10 Mg Tablet) 10 mg PO BEDTIME [facility] Multivitamins/Vitamin C (Multivitamin Tablet) 1 tab PO DAILY [facility] Last Admin: 08/11/21 08:32 Dose: 1 tab Documented by: Omeprazole (Omeprazole 20 Mg Capsule.Dr) 20 mg PO DAILY@0630 [facility] Last Admin: 08/11/21 08:32 Dose: 20 mg Documented by: Ondansetron HCl (Ondansetron Hcl 4 Mg/2 Ml Vial) 4 mg IVPUSH Q8H PRN PRN Reason: Nausea and Vomiting Psyllium Hydrophilic Mucilloid (Psyllium Seed 3.4 Gm Powd.Pack) 6.8 gm PO DAILY [facility] Last Admin: 08/11/21 08:32 Dose: 6.8 gm Documented by: Sodium Chloride (0.9 % Sodium Chloride Flush 3 Ml Syringe) 3 ml IVFLUSH QSHIFT [facility] Last Admin: 08/11/21 08:45 Dose: Not Given Documented by: Tramadol HCl (Tramadol Hcl 50 Mg Tablet) 50 mg PO BID PRN PRN Reason: Pain, Severe (Pain Scale 7-10) Valsartan (Valsartan 320 Mg Tablet) 320 mg PO DAILY [facility]; Protocol Last Admin: 08/11/21 08:33 Dose: 320 mg Documented by: Home Medications Medication Instructions Recorded Confirmed Last Taken Type doxazosin 2 mg tablet 2 mg PO DAILY 06/14/21 08/10/21 06/13/21 History furosemide 20 mg tablet 20 mg PO DAILY 06/14/21 08/10/21 06/13/21 History ipratropium 20 mcg-albuterol 100 1 puff INHALATION Q6H PRN 06/14/21 08/10/21 06/13/21 History mcg/actuation mist for inhalation (Combivent Respimat) loratadine 10 mg tablet 10 mg PO DAILY 06/14/21 08/10/21 06/13/21 History metformin 500 mg tablet 500 mg PO BID 06/14/21 08/10/21 06/13/21 History mometasone (Asmanex Twisthaler) 1 inh INHALATION BID 06/14/21 08/10/21 06/13/21 History multivitamin 1 tab PO DAILY 06/14/21 08/10/21 06/13/21 History omeprazole 20 mg capsule,delayed 20 mg PO DAILY 06/14/21 08/10/21 06/13/21 History release psyllium 2 packet PO DAILY 06/14/21 08/10/21 06/13/21 History tramadol 50 mg tablet 50 mg PO BID PRN 06/14/21 08/10/21 Unknown History valsartan 320 mg tablet 320 mg PO DAILY 06/14/21 08/10/21 06/13/21 History zafirlukast 20 mg tablet 20 mg PO BID 06/14/21 08/10/21 06/13/21 History metoprolol tartrate 25 mg tablet 1 tab PO BID 08/10/21 08/10/21 Unknown History Physical Exam Vital Signs: Vital Signs: Last Vital Signs Temp 98.7 F 08/11/21 11:03 Pulse 89 08/11/21 11:03 Resp 21 H 08/11/21 11:03 BP 153/66 H 08/11/21 11:03 Pulse Ox 96 08/11/21 11:03 BMI result Body Mass Index 34.5 GENERAL APPEARANCE: in no acute distress, pleasant. NECK: no carotid bruit, elevated jugular venous distention. SKIN: no suspicious lesions, warm and dry. HEART: no murmurs, regular rate and rhythm. LUNGS: clear to auscultation bilaterally. ABDOMEN: soft, nontender. EXTREMITIES: no edema. PERIPHERAL PULSES: equal. NEUROLOGIC: No gross deficits, AAO X 3 Objective Labs and Meds Result diagrams: 08/11/21 07:23 08/11/21 07:23 Lab results: Laboratory Results - last 24 hr 08/10/21 08/10/21 08/10/21 17:19 17:19 17:19 WBC 10.8 RBC 3.50 L Hgb 10.2 L Hct 32.3 L MCV 92.3 MCH 29.1 MCHC 31.6 RDW 14.0 Plt Count 396 MPV 10.1 Immature Gran % (Auto) 0.5 H Neut % (Auto) 62.2 Lymph % (Auto) 21.1 Tyler % (Auto) 10.0 Eos % (Auto) 5.8 H Baso % (Auto) 0.4 Lymph # (Auto) 2.3 Tyler # (Auto) 1.1 Eos # (Auto) 0.6 H Baso # (Auto) 0.0 Abs Immat Gran (auto) 0.05 H Absolute Neuts (auto) 6.7 Absolute Nucleated RBC 0.000 Nucleated RBC % (auto) 0.0 PT 13.8 H INR 1.2 H APTT 35.6 D-Dimer High Sensitivty 1243 Sodium Potassium Chloride Carbon Dioxide Anion Gap BUN Creatinine Estim Creat Clear Calc Estimated GFR POC Glucose Random Glucose Calcium Magnesium Total Bilirubin Direct Bilirubin AST ALT Alkaline Phosphatase Troponin I High Sens B-Natriuretic Peptide Total Protein Albumin COVID-19 (AZAEL) Negative COVID-19 Clin Com See Note 08/10/21 08/10/21 08/11/21 17:36 17:36 07:01 WBC RBC Hgb Hct MCV MCH MCHC RDW Plt Count MPV Immature Gran % (Auto) Neut % (Auto) Lymph % (Auto) Tyler % (Auto) Eos % (Auto) Baso % (Auto) Lymph # (Auto) Tyler # (Auto) Eos # (Auto) Baso # (Auto) Abs Immat Gran (auto) Absolute Neuts (auto) Absolute Nucleated RBC Nucleated RBC % (auto) PT INR APTT D-Dimer High Sensitivty Sodium 141 Potassium 4.6 Chloride 105 Carbon Dioxide 28 Anion Gap 13 BUN 17 H Creatinine 1.05 Estim Creat Clear Calc 66.3 Estimated GFR > 60 POC Glucose 152 H Random Glucose 135 H Calcium 9.2 Magnesium 1.5 L Total Bilirubin 0.4 Direct Bilirubin 0.2 AST 14 ALT 16 Alkaline Phosphatase 91 Troponin I High Sens 29.5 D B-Natriuretic Peptide 89 Total Protein 6.3 L Albumin 3.3 L COVID-19 (AZAEL) COVID-19 Clin Com 08/11/21 08/11/21 07:23 07:23 WBC 8.9 RBC 3.20 L Hgb 9.2 L Hct 28.7 L MCV 89.7 MCH 28.8 MCHC 32.1 RDW 13.9 Plt Count 387 MPV 9.7 Immature Gran % (Auto) 0.4 Neut % (Auto) 65.1 Lymph % (Auto) 17.7 L Tyler % (Auto) 10.2 Eos % (Auto) 6.3 H Baso % (Auto) 0.3 Lymph # (Auto) 1.6 Tyler # (Auto) 0.9 Eos # (Auto) 0.6 H Baso # (Auto) 0.0 Abs Immat Gran (auto) 0.04 H Absolute Neuts (auto) 5.8 Absolute Nucleated RBC 0.000 Nucleated RBC % (auto) 0.0 PT INR APTT D-Dimer High Sensitivty Sodium 139 Potassium 4.0 Chloride 105 Carbon Dioxide 28 Anion Gap 10 L BUN 17 H Creatinine 1.03 Estim Creat Clear Calc 67.5 Estimated GFR > 60 POC Glucose Random Glucose 149 H Calcium 8.7 Magnesium Total Bilirubin Direct Bilirubin AST ALT Alkaline Phosphatase Troponin I High Sens B-Natriuretic Peptide Total Protein Albumin COVID-19 ([facility]AEL) COVID-19 Clin Com Imaging Radiologist's impression: Impressions Chest X-Ray 08/10/21 17:07 IMPRESSION: Persistent moderate volume left pleural effusion and left basilar atelectasis. No significant change since prior chest x-ray this a.m. Chest CTA 08/10/21 19:29 IMPRESSION: 1. Extremely limited exam. No central or large proximal emboli are present. 2. Moderate left pleural effusion with left lower lobe collapse/atelectasis. VTE: indeterminate Assessment and Plan (1) Lower extremity edema: Status: Acute (2) Shortness of breath: Status: Acute Plan Pleasant 86 year gentleman presenting for shortness of breath and congestive heart failure. Agree with IV diuretics at this stage. Blood pressure is elevated and is likely cause for his decompensation. Continue medications. Adding isosorbide 30 mg to help improve his filling pressures. He is on diuretics and of full his blood pressure will improve as his volume status gets better. We will follow along with you. Thank you for allowing me to participate in the care of your patient. Please feel free to contact me if you have any questions. Procedures Date of Service Date of Service: 08/11/21
[2021-08-11 12:49] LABS: Glucose, Whole Blood 107 mg/dL (60-115)
--- NOTE | 2021-08-11 13:25 | PM.CNPUL ---
History of Present Illness History of Present Illness Consult date: 08/11/21 Requesting physician: Quintin Aviles Chief complaint: Pleural effusion Narrative: 6-year-old gentleman, former 30+ pack-year smoker, quit over 35 years prior, with underlying history of COPD, diabetes mellitus, LVH admitted on 08/10/2021 from his primary care provider officer with worsening dyspnea, orthopnea, lower extremity edema. On ER evaluation patient had CT angiogram of his chest that showed no evidence of pulmonary emboli lobe infiltrates, however a moderate-size left pleural effusion with some compressive atelectasis. Patient denies cough or sputum production or significant wheezing. Review of Systems Constitutional: Constitutional: Denies daytime sleepiness, Denies excessive sweating, Denies fatigue, Denies fever(s), Denies lethargy, Denies malaise, Denies night sweats, Denies snoring and Denies weight loss Eyes: Eyes: Denies blurry vision and Denies itchy eyes ENT: Denies nasal congestion, Denies post nasal drip, Denies sinus pain, Denies sinus pressure and Denies other ( Thrush) Cardiovascular: Cardiovascular: Denies chest pain, Denies pedal edema, Reports dyspnea, Reports dyspnea on exertion, Reports orthopnea and Reports paroxysmal nocturnal dyspnea Respiratory: Respiratory: Denies cough, Denies hemoptysis, Denies excessive phlegm production, Reports dyspnea, Reports dyspnea on exertion, Denies snoring and Denies wheezing Gastrointestinal: Gastrointestinal: Denies abdominal pain and Denies heartburn Musculoskeletal: Musculoskeletal: Denies myalgias, Denies arthralgias and Denies joint swelling Integumentary/Breasts: Skin/Breast: Denies rash Neurologic: Denies memory loss and Denies seizure-like activity Psychiatric: Psychiatric: Denies abnormal sleep pattern, Denies anxiety and Denies memory loss Endocrine: Endocrine: Denies excessive sweating, Denies fatigue and Denies heat intolerance Hematologic/Lymphatic: Hematologic/Lymphatic: Denies easy bruising Allergic/Immunologic: Allergic/Immunologic: Denies itchy eyes, Denies seasonal rhinorrhea and Denies wheezing PMFSH Past Medical History Medical History Arthritis Diabetes Emphysema of lung Hypertension Family History Family History Father No problems noted. Mother Cancer Brother No problems noted. Daughter No problems noted. Surgical History Surgical History History of knee replacement (09/30/12) Social History Social History Household Members: None Housing: House Do you presently have visiting nurse or other home services: No Alcohol intake: former Patient Tobacco Use Status: Former Tobacco user Quit Date: 30 years ago Tobacco use type: Cigarette Advance Directives: Yes Advance Directives Information Provided: Yes Advance Directives on File: No service: Yes Current occupational status: retired [employer] Allergies Allergy/AdvReac Type Severity Reaction Status Date / Time No Known Allergies Allergy Verified 07/25/21 14:11 Active Medications: Current Medications Acetaminophen (Acetaminophen 325 Mg Tablet) 650 mg PO Q6H PRN PRN Reason: Pain, Mild (Pain Scale 1-3) Albuterol/Ipratropium (Albuterol/Iprat 2.5/0.5mg 3 Ml Ampul.Neb) 3 ml INHALE RQ6H PRN PRN Reason: Wheezing Atorvastatin Calcium (Atorvastatin Calcium 40 Mg Tablet) 40 mg PO BEDTIME JOSE Last Admin: 08/10/21 23:40 Dose: 40 mg Documented by: Dextrose (Dextrose 50 % 25 Gm/50 Ml Syringe) 25 gm IVPUSH Q15M PRN; Protocol PRN Reason: per Hypoglycemia Standing Ord. Docusate Sodium (Docusate Sodium 100 Mg Capsule) 100 mg PO DAILY PRN PRN Reason: Constipation Doxazosin Mesylate (Doxazosin Mesylate 2 Mg Tablet) 2 mg PO DAILY [facility]; Protocol Last Admin: 08/11/21 08:32 Dose: 2 mg Documented by: Fluticasone/Vilanterol (Fluticasone/Vilanterol 200/25 Blst.W.Dev) 1 puff INHALE RDAILY [facility] Last Admin: 08/11/21 08:13 Dose: Not Given Documented by: Furosemide (Furosemide 40 Mg/4 Ml Vial) 40 mg IVPUSH Q12H [facility]; Protocol Last Admin: 08/10/21 23:41 Dose: 40 mg Documented by: Glucose (Glucose Gel 15 Gm Gel..Gram.) 15 gm PO Q15M PRN; Protocol PRN Reason: per Hypoglycemia Standing Ord. Insulin Human Lispro (Insulin Lispro 100 Unit/Ml 3 Ml Vial) 0 unit SUBCUT QIDACHS [facility]; Protocol Last Admin: 08/11/21 08:33 Dose: 2 unit Documented by: Loratadine (Loratadine 10 Mg Tablet) 10 mg PO DAILY [facility] Last Admin: 08/11/21 08:32 Dose: 10 mg Documented by: Metoprolol Tartrate (Metoprolol Tartrate 25 Mg Tablet) 25 mg PO BID [facility]; Protocol Last Admin: 08/11/21 08:32 Dose: 25 mg Documented by: Montelukast Sodium (Montelukast Sodium 10 Mg Tablet) 10 mg PO BEDTIME [facility] Multivitamins/Vitamin C (Multivitamin Tablet) 1 tab PO DAILY [facility] Last Admin: 08/11/21 08:32 Dose: 1 tab Documented by: Omeprazole (Omeprazole 20 Mg Capsule.Dr) 20 mg PO DAILY@0630 [facility] Last Admin: 08/11/21 08:32 Dose: 20 mg Documented by: Ondansetron HCl (Ondansetron Hcl 4 Mg/2 Ml Vial) 4 mg IVPUSH Q8H PRN PRN Reason: Nausea and Vomiting Psyllium Hydrophilic Mucilloid (Psyllium Seed 3.4 Gm Powd.Pack) 6.8 gm PO DAILY [facility] Last Admin: 08/11/21 08:32 Dose: 6.8 gm Documented by: Sodium Chloride (0.9 % Sodium Chloride Flush 3 Ml Syringe) 3 ml IVFLUSH QSHIFT [facility] Last Admin: 08/11/21 08:45 Dose: Not Given Documented by: Tramadol HCl (Tramadol Hcl 50 Mg Tablet) 50 mg PO BID PRN PRN Reason: Pain, Severe (Pain Scale 7-10) Valsartan (Valsartan 320 Mg Tablet) 320 mg PO DAILY [facility]; Protocol Last Admin: 08/11/21 08:33 Dose: 320 mg Documented by: Home Medications Medication Instructions Recorded Confirmed Last Taken Type doxazosin 2 mg tablet 2 mg PO DAILY 06/14/21 08/10/21 06/13/21 History furosemide 20 mg tablet 20 mg PO DAILY 06/14/21 08/10/21 06/13/21 History ipratropium 20 mcg-albuterol 100 1 puff INHALATION Q6H PRN 06/14/21 08/10/21 06/13/21 History mcg/actuation mist for inhalation (Combivent Respimat) loratadine 10 mg tablet 10 mg PO DAILY 06/14/21 08/10/21 06/13/21 History metformin 500 mg tablet 500 mg PO BID 06/14/21 08/10/21 06/13/21 History mometasone (Asmanex Twisthaler) 1 inh INHALATION BID 06/14/21 08/10/21 06/13/21 History multivitamin 1 tab PO DAILY 06/14/21 08/10/21 06/13/21 History omeprazole 20 mg capsule,delayed 20 mg PO DAILY 06/14/21 08/10/21 06/13/21 History release psyllium 2 packet PO DAILY 06/14/21 08/10/21 06/13/21 History tramadol 50 mg tablet 50 mg PO BID PRN 06/14/21 08/10/21 Unknown History valsartan 320 mg tablet 320 mg PO DAILY 06/14/21 08/10/21 06/13/21 History zafirlukast 20 mg tablet 20 mg PO BID 06/14/21 08/10/21 06/13/21 History metoprolol tartrate 25 mg tablet 1 tab PO BID 08/10/21 08/10/21 Unknown History Physical Exam Vital Signs: Vital Signs: Last Vital Signs Temp 98.7 F 08/11/21 11:03 Pulse 89 08/11/21 11:03 Resp 21 H 08/11/21 11:03 BP 153/66 H 08/11/21 11:03 Pulse Ox 96 08/11/21 11:03 BMI result Body Mass Index 34.5 Const: General: no acute distress and alert Nutritional Appearance: obese Orientation/consciousness: Other orientation findings ( oriented) HENMT: Head: Yes atraumatic Eyes: General: appearance normal, both eyes and all related structures Sclerae: sclerae normal EOM: EOMs intact bilaterally Neck: Neck: Yes supple Lymphatic: no lymphadenopathy noted Resp: Effort & Inspection: normal respiratory effort and no use of accessory muscles Auscultation: clear to auscultation bilaterally Cardio: Rate: regular rate Rhythm: regular rhythm Heart sounds: no gallops, no murmurs and no rubs GI: Palpation (GI): Soft to palpation and Other GI palpation findings present ( nontender) Skin: General skin exam: other ( warm) Rashes: no rashes Extrem: General: No clubbing, No cyanosis and Yes edema (1+ bilateral) Results Laboratory Findings CBC and BMP: 08/11/21 07:23 08/11/21 07:23 ABG, PT/INR, D-dimer: PT/INR, D-dimer PT 13.8 SEC (9.9-13.0) H 08/10/21 17:19 INR 1.2 (0.9-1.1) H 08/10/21 17:19 Abnormal lab findings: Abnormal Labs 08/10/21 08/10/21 08/10/21 17:19 17:19 17:36 RBC 3.50 L Hgb 10.2 L Hct 32.3 L Immature Gran % (Auto) 0.5 H Lymph % (Auto) Eos % (Auto) 5.8 H Eos # (Auto) 0.6 H Abs Immat Gran (auto) 0.05 H PT 13.8 H INR 1.2 H Anion Gap BUN 17 H POC Glucose Random Glucose 135 H Magnesium 1.5 L Total Protein 6.3 L Albumin 3.3 L 08/11/21 08/11/21 08/11/21 07:01 07:23 07:23 RBC 3.20 L Hgb 9.2 L Hct 28.7 L Immature Gran % (Auto) Lymph % (Auto) 17.7 L Eos % (Auto) 6.3 H Eos # (Auto) 0.6 H Abs Immat Gran (auto) 0.04 H PT INR Anion Gap 10 L BUN 17 H POC Glucose 152 H Random Glucose 149 H Magnesium Total Protein Albumin Assessment and Plan (1) Shortness of breath: Status: Acute (2) Pleural effusion on left: Status: Acute Plan Impression: 86-year-old gentleman admitted with dyspnea progressing over the last 3 months, including orthopnea, and blood to nocturnal dyspnea, also noted to have a moderate left-sided pleural effusion. His echo mentions dilated left atrium and his CT angiogram chest demonstrated significant left ventricular hypertrophy. He likely has underlying diastolic dysfunction resulting in fluid retention and development of left-sided pleural effusion. Recommendation: Agree with further diuresis. Can consider left-sided thoracentesis, if his symptoms fail to improve with diuresis, for diagnostic and therapeutic purposes. Procedures Date of Service Date of Service: 08/11/21
[2021-08-11] MEDS: Furosemide 40 MG/4 ML VIAL IVPUSH (13:56)
--- NOTE | 2021-08-11 15:27 | HO.PM.IMPN ---
Subjective Subjective Date of Service: 08/11/21 Interval History: No acute issues overnight Review of Systems Denies CP Denies SOB Denies N/V/D Physical Exam Vital Signs: Vital Signs: Last Vital Signs Temp 98.7 F 08/11/21 11:03 Pulse 79 08/11/21 14:47 Resp 20 08/11/21 14:47 BP 150/41 H 08/11/21 14:47 Pulse Ox 96 08/11/21 14:47 BMI result Body Mass Index 34.5 Const: Other: No acute distress Resp: Other: Clear A/P. No crackles Cardio: Other: -S4 +S1/S2 _ S3 MRG GI: Other: soft NT/ND NABS x 4 quads Extrem: Other: 1+ edemq bilat Objective Data Active Medications Acetaminophen (Acetaminophen 325 Mg Tablet) 650 mg PO Q6H PRN PRN Reason: Pain, Mild (Pain Scale 1-3) Albuterol/Ipratropium (Albuterol/Iprat 2.5/0.5mg 3 Ml Ampul.Neb) 3 ml INHALE RQ6H PRN PRN Reason: Wheezing Atorvastatin Calcium (Atorvastatin Calcium 40 Mg Tablet) 40 mg PO BEDTIME [facility] Last Admin: 08/10/21 23:40 Dose: 40 mg Documented by: FLAVIO Dextrose (Dextrose 50 % 25 Gm/50 Ml Syringe) 25 gm IVPUSH Q15M PRN; Protocol PRN Reason: per Hypoglycemia Standing Ord. Docusate Sodium (Docusate Sodium 100 Mg Capsule) 100 mg PO DAILY PRN PRN Reason: Constipation Doxazosin Mesylate (Doxazosin Mesylate 2 Mg Tablet) 2 mg PO DAILY [facility]; Protocol Last Admin: 08/11/21 08:32 Dose: 2 mg Documented by: JUAN Fluticasone/Vilanterol (Fluticasone/Vilanterol 200/25 Blst.W.Dev) 1 puff INHALE RDAILY [facility] Last Admin: 08/11/21 08:13 Dose: Not Given Documented by: KAITLIN Non-Admin Reason: Med Not Available Furosemide (Furosemide 40 Mg/4 Ml Vial) 40 mg IVPUSH Q12H [facility]; Protocol Last Admin: 08/11/21 13:56 Dose: 40 mg Documented by: JUAN Glucose (Glucose Gel 15 Gm Gel..Gram.) 15 gm PO Q15M PRN; Protocol PRN Reason: per Hypoglycemia Standing Ord. Insulin Human Lispro (Insulin Lispro 100 Unit/Ml 3 Ml Vial) 0 unit SUBCUT QIDACHS [facility]; Protocol Last Admin: 08/11/21 13:57 Dose: Not Given Documented by: JUAN Non-Admin Reason: No Insulin Coverage Loratadine (Loratadine 10 Mg Tablet) 10 mg PO DAILY [facility] Last Admin: 08/11/21 08:32 Dose: 10 mg Documented by: JUAN Metoprolol Tartrate (Metoprolol Tartrate 25 Mg Tablet) 25 mg PO BID [facility]; Protocol Last Admin: 08/11/21 08:32 Dose: 25 mg Documented by: JUAN Montelukast Sodium (Montelukast Sodium 10 Mg Tablet) 10 mg PO BEDTIME [facility] Multivitamins/Vitamin C (Multivitamin Tablet) 1 tab PO DAILY [facility] Last Admin: 08/11/21 08:32 Dose: 1 tab Documented by: JUAN Omeprazole (Omeprazole 20 Mg Capsule.Dr) 20 mg PO DAILY@0630 [facility] Last Admin: 08/11/21 08:32 Dose: 20 mg Documented by: JUAN Ondansetron HCl (Ondansetron Hcl 4 Mg/2 Ml Vial) 4 mg IVPUSH Q8H PRN PRN Reason: Nausea and Vomiting Psyllium Hydrophilic Mucilloid (Psyllium Seed 3.4 Gm Powd.Pack) 6.8 gm PO DAILY [facility] Last Admin: 08/11/21 08:32 Dose: 6.8 gm Documented by: JUAN Sodium Chloride (0.9 % Sodium Chloride Flush 3 Ml Syringe) [facility] Last Admin: 08/11/21 14:57 Dose: Not Given Documented by: BEN Non-Admin Reason: IV Running Tramadol HCl (Tramadol Hcl 50 Mg Tablet) 50 mg PO BID PRN PRN Reason: Pain, Severe (Pain Scale 7-10) Valsartan (Valsartan 320 Mg Tablet) 320 mg PO DAILY [facility]; Protocol Last Admin: 08/11/21 08:33 Dose: 320 mg Documented by: JUAN Labs CBC & Chem 7: 08/11/21 07:23 08/11/21 07:23 Labs: Laboratory Results - last 24 hr 08/10/21 08/10/21 08/10/21 17:19 17:19 17:19 MCV 92.3 MCH 29.1 MCHC 31.6 RDW 14.0 Plt Count 396 MPV 10.1 Immature Gran % (Auto) 0.5 H Neut % (Auto) 62.2 Lymph % (Auto) 21.1 [place] % (Auto) 10.0 Eos % (Auto) 5.8 H Baso % (Auto) 0.4 Lymph # (Auto) 2.3 [place] # (Auto) 1.1 Eos # (Auto) 0.6 H Baso # (Auto) 0.0 Abs Immat Gran (auto) 0.05 H Absolute Neuts (auto) 6.7 Absolute Nucleated RBC 0.000 Nucleated RBC % (auto) 0.0 PT 13.8 H INR 1.2 H APTT 35.6 D-Dimer High Sensitivty 1243 Anion Gap Estim Creat Clear Calc Estimated GFR POC Glucose Random Glucose Calcium Magnesium Total Bilirubin Direct Bilirubin AST ALT Alkaline Phosphatase B-Natriuretic Peptide Total Protein Albumin COVID-19 (AZAEL) Negative COVID-19 Clin Com See Note 08/10/21 08/10/21 08/11/21 17:36 17:36 07:01 MCV MCH MCHC RDW Plt Count MPV Immature Gran % (Auto) Neut % (Auto) Lymph % (Auto) [place] % (Auto) Eos % (Auto) Baso % (Auto) Lymph # (Auto) [place] # (Auto) Eos # (Auto) Baso # (Auto) Abs Immat Gran (auto) Absolute Neuts (auto) Absolute Nucleated RBC Nucleated RBC % (auto) PT INR APTT D-Dimer High Sensitivty Anion Gap 13 Estim Creat Clear Calc 66.3 Estimated GFR > 60 POC Glucose 152 H Random Glucose 135 H Calcium 9.2 Magnesium 1.5 L Total Bilirubin 0.4 Direct Bilirubin 0.2 AST 14 ALT 16 Alkaline Phosphatase 91 B-Natriuretic Peptide 89 Total Protein 6.3 L Albumin 3.3 L COVID-19 (AZAEL) COVID-19 [employer] Com 08/11/21 08/11/21 08/11/21 07:23 07:23 12:45 MCV 89.7 MCH 28.8 MCHC 32.1 RDW 13.9 Plt Count 387 MPV 9.7 Immature Gran % (Auto) 0.4 Neut % (Auto) 65.1 Lymph % (Auto) 17.7 L [place] % (Auto) 10.2 Eos % (Auto) 6.3 H Baso % (Auto) 0.3 Lymph # (Auto) 1.6 [place] # (Auto) 0.9 Eos # (Auto) 0.6 H Baso # (Auto) 0.0 Abs Immat Gran (auto) 0.04 H Absolute Neuts (auto) 5.8 Absolute Nucleated RBC 0.000 Nucleated RBC % (auto) 0.0 PT INR APTT D-Dimer High Sensitivty Anion Gap 10 L Estim Creat Clear Calc 67.5 Estimated GFR > 60 POC Glucose 107 Random Glucose 149 H Calcium 8.7 Magnesium Total Bilirubin Direct Bilirubin AST ALT Alkaline Phosphatase B-Natriuretic Peptide Total Protein Albumin COVID-19 (AZAEL) COVID-19 Clin Com Assessment and Plan (1) Shortness of breath: Status: Acute (2) Pleural effusion on left: Status: Acute (3) Lower extremity edema: Status: Acute Plan 86-year-old male with past medical history of diabetes, hypertension, and recent ACS presents to the hospital with complaints of shortness of breath found to have left pleural effusion 1.Acute dyspnea(in backdrop of persistant LLE effusion) - EF 12/21 60%. - will continue IV diuresis pending Cards input 2. Left pleural effusion - was seen on chest x-ray in July 25 but was not present in May - ?secondary to CHF ? diastolic - will consult pulmonology for possible thoracocentesis - monitor I&O 3. DMII - acceptable control - sliding scale insulin - diabetic diet 4.Hypertension - acceptable control on current therapies - continue home medications DVT prophylaxis: scds in anticipation of thoracocentesis Quality Stroke Does the patient have a stroke diagnosis?: No VTE Prior VTE?: No VTE Risk Level:: Medical - moderate - high VTE Device Contraindication: N/A - Device Ordered VTE Drug Contraindication: Treatment Not Indicated
[2021-08-11 18:11] LABS: Glucose, Whole Blood 163 mg/dL (60-115)
[2021-08-11] MEDS: Isosorbide Mononitrate 30 MG TAB.ER.24H PO (19:38)
[2021-08-11] MEDS: Atorvastatin Calcium 40 MG TABLET PO (20:58)
[2021-08-11] MEDS: Montelukast Sodium 10 MG TABLET PO (20:58)
[2021-08-11 21:06] LABS: Glucose, Whole Blood 168 mg/dL (60-115)
[2021-08-12] VITALS (7 sets, daily range): BP systolic 116–140; BP diastolic 54–65; PULSE 67–91; RESP 18; TEMP 36.3–37.9; O2SAT 94–98; BMI 32.4
[2021-08-12] MEDS: Furosemide 40 MG/4 ML VIAL IVPUSH ×3 (00:09→21:38)
[2021-08-12] MEDS: 0.9 % Sodium Chloride Flush 3 ML SYRINGE IVFLUSH ×3 (00:15→15:47)
[2021-08-12] MEDS: Omeprazole 20 MG CAPSULE.DR PO (06:16)
[2021-08-12 07:14] LABS: MANUAL DIFF FLAG NO
[2021-08-12 07:21] LABS: Basophils Percent Auto 0.3 % (0-2); Eosinophils Absolute Auto 0.7 X10*3/uL (0.0-0.4); Eosinophils Percent Auto 6.8 % (0-4); Hematocrit 27.6 % (42.0-52.0); Hemoglobin 8.9 g/dl (14.0-18.0); Imm Gran Abs Auto 0.04 X10*3/uL (0.00-0.03); Imm Gran Pct Auto 0.4 % (0.0-0.4); Lymphocytes Absolute Auto 2.3 X10*3/uL (1.2-4.9); Lymphocytes Percent Auto 23.7 % (20-40); Mean Corpuscular HGB Conc 32.2 g/dl (31.0-36.0); Mean Corpuscular Hemoglobin 29.1 pg (27.0-33.0); Mean Corpuscular Volume 90.2 fL (80.0-98.0); Mean Platelet Volume 10.1 fL (9.4-12.4); Neutrophils Absolute Auto 5.8 x10*3/uL (2.0-8.3); Neutrophils Percent Auto 58.8 % (45-73); Platelet Count 389 X10*3/uL (160-400); Red Blood Count 3.06 X10*6/uL (4.60-5.80); Red Cell Distribution Width 13.9 % (11.0-16.0); White Blood Count 9.8 X10*3/uL (4.8-10.8)
[2021-08-12 07:35] LABS: Glucose, Whole Blood 163 mg/dL (60-115)
[2021-08-12 08:00] LABS: Alanine Aminotransferase 15 U/L (0-40); Albumin Level 2.9 g/dL (3.5-5.0); Alkaline Phosphatase 81 U/L (39-117); Anion Gap 11 (12-20); Aspartate Amino Transferase 14 U/L (5-37); Bilirubin Total 0.5 mg/dL (0.0-1.0); Blood Urea Nitrogen 21 mg/dL (9-16); Calcium 8.6 mg/dL (8.4-10.2); Carbon Dioxide 29 mmol/L (22-29); Chloride 105 mmol/L (96-108); Creatinine Clr Calc Pharmacy 56.7; Estimated Glomerular Filt Rate 58; Glucose Fasting 158 mg/dL (60-99); Potassium 4.3 mmol/L (3.3-5.1); Sodium 141 mmol/L (135-145); Total Protein 5.5 g/dL (6.5-8.0)
[2021-08-12] MEDS: Insulin Lispro 100 UNIT/ML 3 ML VIAL SUBCUT ×2 (08:11→11:48)
[2021-08-12] MEDS: Doxazosin Mesylate 2 MG TABLET PO (08:13)
[2021-08-12] MEDS: Valsartan 320 MG TABLET PO (08:13)
[2021-08-12] MEDS: Multivitamin TABLET 1 TAB PO (08:13)
[2021-08-12] MEDS: Metoprolol Tartrate 25 MG TABLET PO ×2 (08:13→20:58)
[2021-08-12] MEDS: Isosorbide Mononitrate 30 MG TAB.ER.24H PO (08:14)
[2021-08-12] MEDS: Loratadine 10 MG TABLET PO (08:15)
--- NOTE | 2021-08-12 11:15 | P.PNIM_ITS ---
Subjective Subjective Date of Service: 08/12/21 Interval History: No acute issues overnight Review of Systems Denies CP Denies SOB Denies N/V/D Physical Exam Vital Signs: Vital Signs: Last Vital Signs Temp 97.4 F 08/12/21 07:20 Pulse 91 08/12/21 07:20 Resp 18 08/12/21 07:20 BP 140/65 H 08/12/21 07:20 Pulse Ox 94 08/12/21 07:20 BMI result Body Mass Index 32.4 Const: Other: No acute distress Resp: Other: Clear A/P. No crackles Cardio: Other: -S4 +S1/S2 _ S3 MRG GI: Other: soft NT/ND NABS x 4 quads Extrem: Other: 1+ edemq bilat Objective Data Active Medications Acetaminophen (Acetaminophen 325 Mg Tablet) 650 mg PO Q6H PRN PRN Reason: Pain, Mild (Pain Scale 1-3) Albuterol/Ipratropium (Albuterol/Iprat 2.5/0.5mg 3 Ml Ampul.Neb) 3 ml INHALE RQ6H PRN PRN Reason: Wheezing Atorvastatin Calcium (Atorvastatin Calcium 40 Mg Tablet) 40 mg PO BEDTIME [facility] Last Admin: 08/11/21 20:58 Dose: 40 mg Documented by: CAITLYN Dextrose (Dextrose 50 % 25 Gm/50 Ml Syringe) 25 gm IVPUSH Q15M PRN; Protocol PRN Reason: per Hypoglycemia Standing Ord. Docusate Sodium (Docusate Sodium 100 Mg Capsule) 100 mg PO DAILY PRN PRN Reason: Constipation Doxazosin Mesylate (Doxazosin Mesylate 2 Mg Tablet) 2 mg PO DAILY [facility]; Protocol Last Admin: 08/12/21 08:13 Dose: 2 mg Documented by: ELVIN Fluticasone/Vilanterol (Fluticasone/Vilanterol 200/25 Blst.W.Dev) 1 puff INHALE RDAILY [facility] Last Admin: 08/12/21 08:00 Dose: Not Given Documented by: KAITLIN Non-Admin Reason: Med Not Available Furosemide (Furosemide 40 Mg/4 Ml Vial) 40 mg IVPUSH Q12H [facility]; Protocol Last Admin: 08/12/21 00:09 Dose: 40 mg Documented by: CAITLYN Glucose (Glucose Gel 15 Gm Gel..Gram.) 15 gm PO Q15M PRN; Protocol PRN Reason: per Hypoglycemia Standing Ord. Insulin Human Lispro (Insulin Lispro 100 Unit/Ml 3 Ml Vial) 0 unit SUBCUT QIDACHS [facility]; Protocol Last Admin: 08/12/21 08:11 Dose: 2 unit Documented by: ELVIN Isosorbide Mononitrate (Isosorbide Mononitrate 30 Mg Tab.Er.24h) 30 mg PO DAILY [facility]; Protocol Last Admin: 08/12/21 08:14 Dose: 30 mg Documented by: ELVIN Loratadine (Loratadine 10 Mg Tablet) 10 mg PO DAILY [facility] Last Admin: 08/12/21 08:15 Dose: 10 mg Documented by: ELVIN Metoprolol Tartrate (Metoprolol Tartrate 25 Mg Tablet) 25 mg PO BID [facility]; Protocol Last Admin: 08/12/21 08:13 Dose: 25 mg Documented by: ELVIN Montelukast Sodium (Montelukast Sodium 10 Mg Tablet) 10 mg PO BEDTIME [facility] Last Admin: 08/11/21 20:58 Dose: 10 mg Documented by: CAITLYN Multivitamins/Vitamin C (Multivitamin Tablet) 1 tab PO DAILY [facility] Last Admin: 08/12/21 08:13 Dose: 1 tab Documented by: ELVIN Omeprazole (Omeprazole 20 Mg Capsule.Dr) 20 mg PO DAILY@0630 [facility] Last Admin: 08/12/21 06:16 Dose: 20 mg Documented by: CAITLYN Ondansetron HCl (Ondansetron Hcl 4 Mg/2 Ml Vial) 4 mg IVPUSH Q8H PRN PRN Reason: Nausea and Vomiting Psyllium Hydrophilic Mucilloid (Psyllium Seed 3.4 Gm Powd.Pack) 6.8 gm PO DAILY [facility] Last Admin: 08/12/21 08:14 Dose: 6.8 gm Documented by: ELVIN Sodium Chloride (0.9 % Sodium Chloride Flush 3 Ml Syringe) 3 ml IVFLUSH QSHIFT [facility] Last Admin: 08/12/21 08:14 Dose: 3 ml Documented by: ELVIN Tramadol HCl (Tramadol Hcl 50 Mg Tablet) 50 mg PO BID PRN PRN Reason: Pain, Severe (Pain Scale 7-10) Valsartan (Valsartan 320 Mg Tablet) 320 mg PO DAILY [facility]; Protocol Last Admin: 08/12/21 08:13 Dose: 320 mg Documented by: ELVIN Labs CBC & Chem 7: 08/12/21 06:40 08/12/21 06:40 Labs: Laboratory Results - last 24 hr 08/11/21 08/11/21 08/11/21 12:45 17:59 20:50 MCV MCH MCHC RDW Plt Count MPV Immature Gran % (Auto) Neut % (Auto) Lymph % (Auto) [place] % (Auto) Eos % (Auto) Baso % (Auto) Lymph # (Auto) [place] # (Auto) Eos # (Auto) Baso # (Auto) Abs Immat Gran (auto) Absolute Neuts (auto) Absolute Nucleated RBC Nucleated RBC % (auto) Anion Gap Estim Creat Clear Calc Estimated GFR POC Glucose 107 163 H 168 H Fasting Glucose Calcium Total Bilirubin AST ALT Alkaline Phosphatase Total Protein Albumin 08/12/21 08/12/21 08/12/21 06:40 06:40 07:22 MCV 90.2 MCH 29.1 MCHC 32.2 RDW 13.9 Plt Count 389 MPV 10.1 Immature Gran % (Auto) 0.4 Neut % (Auto) 58.8 Lymph % (Auto) 23.7 [place] % (Auto) 10.0 Eos % (Auto) 6.8 H Baso % (Auto) 0.3 Lymph # (Auto) 2.3 [place] # (Auto) 1.0 Eos # (Auto) 0.7 H Baso # (Auto) 0.0 Abs Immat Gran (auto) 0.04 H Absolute Neuts (auto) 5.8 Absolute Nucleated RBC 0.000 Nucleated RBC % (auto) 0.0 Anion Gap 11 L Estim Creat Clear Calc 56.7 Estimated GFR 58 POC Glucose 163 H Fasting Glucose 158 H Calcium 8.6 Total Bilirubin 0.5 AST 14 ALT 15 Alkaline Phosphatase 81 Total Protein 5.5 L Albumin 2.9 L Assessment and Plan (1) Shortness of breath: Status: Acute (2) Pleural effusion on left: Status: Acute (3) HTN (hypertension): Status: Acute Plan 86-year-old male with past medical history of diabetes, hypertension, and recent ACS presents to the hospital with complaints of shortness of breath found to have left pleural effusion 1.Acute dyspnea(in backdrop of persistant LLE effusion) -Improved with IV lasix - continues same x 24hrs. -hopeful D/C in am 2. Left pleural effusion - was seen on chest x-ray in July 25 but was not present in May - hopeful improvemnt with diuresis. - outpatient f/up 3. DMII - acceptable control - sliding scale insulin - diabetic diet 4.Hypertension - acceptable control on current therapies; no further changes. - follow response to diuresis - continue home medications DVT prophylaxis: scds in anticipation of thoracocentesis Quality Stroke Does the patient have a stroke diagnosis?: No VTE Prior VTE?: No VTE Risk Level:: Medical - moderate - high VTE Device Contraindication: N/A - Device Ordered VTE Drug Contraindication: Treatment Not Indicated
[2021-08-12 11:43] LABS: Glucose, Whole Blood 172 mg/dL (60-115)
--- NOTE | 2021-08-12 11:45 | P.PNCA_ITS ---
Subjective Subjective Date of Service: 08/12/21 Interval history: Feeling better but still short of breath when he is walking. Physical Exam Vital Signs: Last Vital Signs Temp 97.4 F 08/12/21 11:14 Pulse 67 08/12/21 11:14 Resp 18 08/12/21 11:14 BP 119/54 L 08/12/21 11:14 Pulse Ox 96 08/12/21 11:14 BMI result Body Mass Index 32.4 GENERAL APPEARANCE: in no acute distress, pleasant. NECK: no carotid bruit, positive jugular venous distention. SKIN: no suspicious lesions, warm and dry. HEART: no murmurs, regular rate and rhythm. LUNGS: Crackles at bases ABDOMEN: soft, nontender. EXTREMITIES: no edema. PERIPHERAL PULSES: equal. NEUROLOGIC: No gross deficits, AAO X 3 Objective Labs and Meds Result diagrams: 08/12/21 06:40 08/12/21 06:40 Lab results: Laboratory Results - last 24 hr 08/11/21 08/11/21 08/11/21 12:45 17:59 20:50 WBC RBC Hgb Hct MCV MCH MCHC RDW Plt Count MPV Immature Gran % (Auto) Neut % (Auto) Lymph % (Auto) [place] % (Auto) Eos % (Auto) Baso % (Auto) Lymph # (Auto) [place] # (Auto) Eos # (Auto) Baso # (Auto) Abs Immat Gran (auto) Absolute Neuts (auto) Absolute Nucleated RBC Nucleated RBC % (auto) Sodium Potassium Chloride Carbon Dioxide Anion Gap BUN Creatinine Estim Creat Clear Calc Estimated GFR POC Glucose 107 163 H 168 H Fasting Glucose Calcium Total Bilirubin AST ALT Alkaline Phosphatase Total Protein Albumin 08/12/21 08/12/21 08/12/21 06:40 06:40 07:22 WBC 9.8 RBC 3.06 L Hgb 8.9 L Hct 27.6 L MCV 90.2 MCH 29.1 MCHC 32.2 RDW 13.9 Plt Count 389 MPV 10.1 Immature Gran % (Auto) 0.4 Neut % (Auto) 58.8 Lymph % (Auto) 23.7 [place] % (Auto) 10.0 Eos % (Auto) 6.8 H Baso % (Auto) 0.3 Lymph # (Auto) 2.3 [place] # (Auto) 1.0 Eos # (Auto) 0.7 H Baso # (Auto) 0.0 Abs Immat Gran (auto) 0.04 H Absolute Neuts (auto) 5.8 Absolute Nucleated RBC 0.000 Nucleated RBC % (auto) 0.0 Sodium 141 Potassium 4.3 Chloride 105 Carbon Dioxide 29 Anion Gap 11 L BUN 21 H Creatinine 1.19 Estim Creat Clear Calc 56.7 Estimated GFR 58 POC Glucose 163 H Fasting Glucose 158 H Calcium 8.6 Total Bilirubin 0.5 AST 14 ALT 15 Alkaline Phosphatase 81 Total Protein 5.5 L Albumin 2.9 L 08/12/21 11:16 WBC RBC Hgb Hct MCV MCH MCHC RDW Plt Count MPV Immature Gran % (Auto) Neut % (Auto) Lymph % (Auto) [place] % (Auto) Eos % (Auto) Baso % (Auto) Lymph # (Auto) [place] # (Auto) Eos # (Auto) Baso # (Auto) Abs Immat Gran (auto) Absolute Neuts (auto) Absolute Nucleated RBC Nucleated RBC % (auto) Sodium Potassium Chloride Carbon Dioxide Anion Gap BUN Creatinine Estim Creat Clear Calc Estimated GFR POC Glucose 172 H Fasting Glucose Calcium Total Bilirubin AST ALT Alkaline Phosphatase Total Protein Albumin Progress Note: A&P Assessment and plan (1) HTN (hypertension): Status: Acute (2) Diastolic heart failure: Status: Acute Plan 86-year-old gentleman with shortness of breath and elevated blood pressure. Clinically he had heart failure exacerbation. Continue with IV diuretics. In's and out's are probably not accurately calculated. His weight should be checked to make sure that he is adequately diuresing. Blood pressure is better with the current medications. Hopefully he improves by tomorrow and can go home. Thank you for allowing me to participate in the care of your patient. Please feel free to contact me if you have any questions. Fall Risk Details Current Medications: Current Medications Acetaminophen (Acetaminophen 325 Mg Tablet) 650 mg PO Q6H PRN PRN Reason: Pain, Mild (Pain Scale 1-3) Albuterol/Ipratropium (Albuterol/Iprat 2.5/0.5mg 3 Ml Ampul.Neb) 3 ml INHALE RQ6H PRN PRN Reason: Wheezing Atorvastatin Calcium (Atorvastatin Calcium 40 Mg Tablet) 40 mg PO BEDTIME [facility] Last Admin: 08/11/21 20:58 Dose: 40 mg Documented by: Dextrose (Dextrose 50 % 25 Gm/50 Ml Syringe) 25 gm IVPUSH Q15M PRN; Protocol PRN Reason: per Hypoglycemia Standing Ord. Docusate Sodium (Docusate Sodium 100 Mg Capsule) 100 mg PO DAILY PRN PRN Reason: Constipation Doxazosin Mesylate (Doxazosin Mesylate 2 Mg Tablet) 2 mg PO DAILY [facility]; Protocol Last Admin: 08/12/21 08:13 Dose: 2 mg Documented by: Fluticasone/Vilanterol (Fluticasone/Vilanterol 200/25 Blst.W.Dev) 1 puff INHALE RDAILY [facility] Last Admin: 08/12/21 08:00 Dose: Not Given Documented by: Furosemide (Furosemide 40 Mg/4 Ml Vial) 40 mg IVPUSH Q12H [facility]; Protocol Last Admin: 08/12/21 00:09 Dose: 40 mg Documented by: Glucose (Glucose Gel 15 Gm Gel..Gram.) 15 gm PO Q15M PRN; Protocol PRN Reason: per Hypoglycemia Standing Ord. Insulin Human Lispro (Insulin Lispro 100 Unit/Ml 3 Ml Vial) 0 unit SUBCUT QIDACHS [facility]; Protocol Last Admin: 08/12/21 08:11 Dose: 2 unit Documented by: Isosorbide Mononitrate (Isosorbide Mononitrate 30 Mg Tab.Er.24h) 30 mg PO DAILY [facility]; Protocol Last Admin: 08/12/21 08:14 Dose: 30 mg Documented by: Loratadine (Loratadine 10 Mg Tablet) 10 mg PO DAILY [facility] Last Admin: 08/12/21 08:15 Dose: 10 mg Documented by: Metoprolol Tartrate (Metoprolol Tartrate 25 Mg Tablet) 25 mg PO BID [facility]; P rotocol Last Admin: 08/12/21 08:13 Dose: 25 mg Documented by: Montelukast Sodium (Montelukast Sodium 10 Mg Tablet) 10 mg PO BEDTIME [facility] Last Admin: 08/11/21 20:58 Dose: 10 mg Documented by: Multivitamins/Vitamin C (Multivitamin Tablet) 1 tab PO DAILY [facility] Last Admin: 08/12/21 08:13 Dose: 1 tab Documented by: Omeprazole (Omeprazole 20 Mg Capsule.Dr) 20 mg PO DAILY@0630 [facility] Last Admin: 08/12/21 06:16 Dose: 20 mg Documented by: Ondansetron HCl (Ondansetron Hcl 4 Mg/2 Ml Vial) 4 mg IVPUSH Q8H PRN PRN Reason: Nausea and Vomiting Psyllium Hydrophilic Mucilloid (Psyllium Seed 3.4 Gm Powd.Pack) 6.8 gm PO DAILY [facility] Last Admin: 08/12/21 08:14 Dose: 6.8 gm Documented by: Sodium Chloride (0.9 % Sodium Chloride Flush 3 Ml Syringe) 3 ml IVFLUSH QSHIFT [facility] Last Admin: 08/12/21 08:14 Dose: 3 ml Documented by: Tramadol HCl (Tramadol Hcl 50 Mg Tablet) 50 mg PO BID PRN PRN Reason: Pain, Severe (Pain Scale 7-10) Valsartan (Valsartan 320 Mg Tablet) 320 mg PO DAILY [facility]; Protocol Last Admin: 08/12/21 08:13 Dose: 320 mg Documented by: Time Spent With Patient Time: Total time spent is greater than 50% in coordination of care (as documented) at patient's floor/unit and/or counseling patient: Time with patient: 15 - 24 minutes Progress Note: Quality Stroke Does the patient have a stroke diagnosis?: No Procedures Date of Service Date of Service: 08/12/21
[2021-08-12 16:07] LABS: Glucose, Whole Blood 127 mg/dL (60-115)
[2021-08-12 20:35] LABS: Glucose, Whole Blood 137 mg/dL (60-115)
[2021-08-12] MEDS: Atorvastatin Calcium 40 MG TABLET PO (20:54)
[2021-08-12] MEDS: Montelukast Sodium 10 MG TABLET PO (20:54)
[2021-08-13] MEDS: Acetaminophen 325 MG TABLET 650 MG PO (00:09)
[2021-08-13] MEDS: 0.9 % Sodium Chloride Flush 3 ML SYRINGE IVFLUSH ×2 (00:12→08:13)
[2021-08-13 03:32] VITALS: BP 139/68; PULSE 70; RESP 19; TEMP 36.5; O2SAT 95
[2021-08-13 05:39] VITALS: BMI 32.3
[2021-08-13] MEDS: Omeprazole 20 MG CAPSULE.DR PO (05:58)
[2021-08-13 06:33] LABS: MANUAL DIFF FLAG NO
[2021-08-13 06:39] LABS: Basophils Percent Auto 0.3 % (0-2); Eosinophils Absolute Auto 0.7 X10*3/uL (0.0-0.4); Eosinophils Percent Auto 7.9 % (0-4); Hematocrit 28.6 % (42.0-52.0); Hemoglobin 9.3 g/dl (14.0-18.0); Imm Gran Abs Auto 0.05 X10*3/uL (0.00-0.03); Imm Gran Pct Auto 0.5 % (0.0-0.4); Lymphocytes Absolute Auto 2.3 X10*3/uL (1.2-4.9); Lymphocytes Percent Auto 24.5 % (20-40); Mean Corpuscular HGB Conc 32.5 g/dl (31.0-36.0); Mean Corpuscular Hemoglobin 29.3 pg (27.0-33.0); Mean Corpuscular Volume 90.2 fL (80.0-98.0); Mean Platelet Volume 9.6 fL (9.4-12.4); Monocytes Absolute Auto 0.9 X10*3/uL (0.1-1.2); Monocytes Percent Auto 10.1 % (2-11); Neutrophils Absolute Auto 5.2 x10*3/uL (2.0-8.3); Neutrophils Percent Auto 56.7 % (45-73); Platelet Count 373 X10*3/uL (160-400); Red Blood Count 3.17 X10*6/uL (4.60-5.80); Red Cell Distribution Width 13.9 % (11.0-16.0); White Blood Count 9.2 X10*3/uL (4.8-10.8)
[2021-08-13 07:07] VITALS: BP 170/67; PULSE 75; RESP 18; TEMP 36.3; O2SAT 94
[2021-08-13 07:13] LABS: Alanine Aminotransferase 17 U/L (0-40); Alkaline Phosphatase 85 U/L (39-117); Anion Gap 10 (12-20); Aspartate Amino Transferase 15 U/L (5-37); Bilirubin Total 0.5 mg/dL (0.0-1.0); Blood Urea Nitrogen 26 mg/dL (9-16); Calcium 8.6 mg/dL (8.4-10.2); Carbon Dioxide 29 mmol/L (22-29); Chloride 103 mmol/L (96-108); Creatinine Clr Calc Pharmacy 50.6; Estimated Glomerular Filt Rate 51; Glucose Fasting 156 mg/dL (60-99); Potassium 4.1 mmol/L (3.3-5.1); Sodium 138 mmol/L (135-145); Total Protein 5.8 g/dL (6.5-8.0)
[2021-08-13 07:26] LABS: Glucose, Whole Blood 145 mg/dL (60-115)
[2021-08-13] MEDS: Multivitamin TABLET 1 TAB PO (08:12)
[2021-08-13] MEDS: Doxazosin Mesylate 2 MG TABLET PO (08:12)
[2021-08-13] MEDS: Isosorbide Mononitrate 30 MG TAB.ER.24H PO (08:12)
[2021-08-13] MEDS: Loratadine 10 MG TABLET PO (08:13)
[2021-08-13] MEDS: Valsartan 320 MG TABLET PO (08:13)
[2021-08-13] MEDS: Metoprolol Tartrate 50 MG TABLET PO (08:13)
[2021-08-13] MEDS: Furosemide 40 MG/4 ML VIAL IVPUSH (09:18)
[2021-08-13 10:57] VITALS: BP 116/60; PULSE 94; RESP 18; TEMP 36.4; O2SAT 94
--- NOTE | 2021-08-13 11:00 | P.PNCA_ITS ---
Subjective Subjective Date of Service: 08/13/21 Interval history: Seen examined at bedside. Clinically doing better. Ambulating and has no significant symptoms. Physical Exam Vital Signs: Last Vital Signs Temp 97.6 F 08/13/21 10:57 Pulse 94 08/13/21 10:57 Resp 18 08/13/21 10:57 BP 116/60 08/13/21 10:57 Pulse Ox 94 08/13/21 10:57 BMI result Body Mass Index 32.3 GENERAL APPEARANCE: in no acute distress, pleasant. NECK: no carotid bruit, no significant jugular venous distention. SKIN: no suspicious lesions, warm and dry. HEART: no murmurs, regular rate and rhythm. LUNGS:? Diminished left base with dullness to percussion. ABDOMEN: soft, nontender. EXTREMITIES: no edema. PERIPHERAL PULSES: equal. NEUROLOGIC: No gross deficits, AAO X 3 Objective Labs and Meds Result diagrams: 08/13/21 06:28 08/13/21 06:28 Lab results: Laboratory Results - last 24 hr 08/12/21 08/12/21 08/12/21 11:16 16:03 20:28 WBC RBC Hgb Hct MCV MCH MCHC RDW Plt Count MPV Immature Gran % (Auto) Neut % (Auto) Lymph % (Auto) [place] % (Auto) Eos % (Auto) Baso % (Auto) Lymph # (Auto) [place] # (Auto) Eos # (Auto) Baso # (Auto) Abs Immat Gran (auto) Absolute Neuts (auto) Absolute Nucleated RBC Nucleated RBC % (auto) Sodium Potassium Chloride Carbon Dioxide Anion Gap BUN Creatinine Estim Creat Clear Calc Estimated GFR POC Glucose 172 H 127 H 137 H Fasting Glucose Calcium Total Bilirubin AST ALT Alkaline Phosphatase Total Protein Albumin 08/13/21 08/13/21 08/13/21 06:28 06:28 07:10 WBC 9.2 RBC 3.17 L Hgb 9.3 L Hct 28.6 L MCV 90.2 MCH 29.3 MCHC 32.5 RDW 13.9 Plt Count 373 MPV 9.6 Immature Gran % (Auto) 0.5 H Neut % (Auto) 56.7 Lymph % (Auto) 24.5 [place] % (Auto) 10.1 Eos % (Auto) 7.9 H Baso % (Auto) 0.3 Lymph # (Auto) 2.3 [place] # (Auto) 0.9 Eos # (Auto) 0.7 H Baso # (Auto) 0.0 Abs Immat Gran (auto) 0.05 H Absolute Neuts (auto) 5.2 Absolute Nucleated RBC 0.000 Nucleated RBC % (auto) 0.0 Sodium 138 Potassium 4.1 Chloride 103 Carbon Dioxide 29 Anion Gap 10 L BUN 26 H Creatinine 1.33 Estim Creat Clear Calc 50.6 Estimated GFR 51 POC Glucose 145 H Fasting Glucose 156 H Calcium 8.6 Total Bilirubin 0.5 AST 15 ALT 17 Alkaline Phosphatase 85 Total Protein 5.8 L Albumin 3.0 L Progress Note: A&P Assessment and plan (1) Diastolic heart failure: Status: Acute (2) HTN (hypertension): Status: Acute Plan Pleasant 86 year gentleman presenting for congestive heart failure. Blood pressure was elevated and his diuretic dose was decreased reportedly and potentially played a role in his decompensation. Blood pressure is well controlled now with current regimen of medications. Clinically improving and ambulating without any symptoms. Continues to have left base effusion with dullness to percussion and diminished breath sounds. Wishes to go home. I think he can be discharged with 40 mg of Lasix and his current antihypertensive medications. He should have repeat chest x-ray in a week to reassess the f usion. If the effusion is enlarging despite diuretics then he may need thoracentesis. Thank you for allowing me to participate in the care of your patient. Please feel free to contact me if you have any questions. Fall Risk Details Current Medications: Current Medications Acetaminophen (Acetaminophen 325 Mg Tablet) 650 mg PO Q6H PRN PRN Reason: Pain, Mild (Pain Scale 1-3) Last Admin: 08/13/21 00:09 Dose: 650 mg Documented by: Albuterol/Ipratropium (Albuterol/Iprat 2.5/0.5mg 3 Ml Ampul.Neb) 3 ml INHALE RQ6H PRN PRN Reason: Wheezing Atorvastatin Calcium (Atorvastatin Calcium 40 Mg Tablet) 40 mg PO BEDTIME JOSE Last Admin: 08/12/21 20:54 Dose: 40 mg Documented by: Dextrose (Dextrose 50 % 25 Gm/50 Ml Syringe) 25 gm IVPUSH Q15M PRN; Protocol PRN Reason: per Hypoglycemia Standing Ord. Docusate Sodium (Docusate Sodium 100 Mg Capsule) 100 mg PO DAILY PRN PRN Reason: Constipation Doxazosin Mesylate (Doxazosin Mesylate 2 Mg Tablet) 2 mg PO DAILY [facility]; Protocol Last Admin: 08/13/21 08:12 Dose: 2 mg Documented by: Fluticasone/Vilanterol (Fluticasone/Vilanterol 200/25 Blst.W.Dev) 1 puff INHALE RDAILY [facility] Last Admin: 08/13/21 07:27 Dose: Not Given Documented by: Furosemide (Furosemide 40 Mg/4 Ml Vial) 40 mg IVPUSH BID@0800,1800 [facility]; Protocol Last Admin: 08/13/21 09:18 Dose: 40 mg Documented by: Glucose (Glucose Gel 15 Gm Gel..Gram.) 15 gm PO Q15M PRN; Protocol PRN Reason: per Hypoglycemia Standing Ord. Insulin Human Lispro (Insulin Lispro 100 Unit/Ml 3 Ml Vial) 0 unit SUBCUT QIDACHS [facility]; Protocol Last Admin: 08/13/21 08:07 Dose: Not Given Documented by: Isosorbide Mononitrate (Isosorbide Mononitrate 30 Mg Tab.Er.24h) 30 mg PO DAILY [facility]; Protocol Last Admin: 08/13/21 08:12 Dose: 30 mg Documented by: Loratadine (Loratadine 10 Mg Tablet) 10 mg PO DAILY [facility] Last Admin: 08/13/21 08:13 Dose: 10 mg Documented by: Metoprolol Tartrate (Metoprolol Tartrate 50 Mg Tablet) 50 mg PO BID [facility]; Protocol Last Admin: 08/13/21 08:13 Dose: 50 mg Documented by: Montelukast Sodium (Montelukast Sodium 10 Mg Tablet) 10 mg PO BEDTIME [facility] Last Admin: 08/12/21 20:54 Dose: 10 mg Documented by: Multivitamins/Vitamin C (Multivitamin Tablet) 1 tab PO DAILY [facility] Last Admin: 08/13/21 08:12 Dose: 1 tab Documented by: Omeprazole (Omeprazole 20 Mg Capsule.Dr) 20 mg PO DAILY@0630 [facility] Last Admin: 08/13/21 05:58 Dose: 20 mg Documented by: Ondansetron HCl (Ondansetron Hcl 4 Mg/2 Ml Vial) 4 mg IVPUSH Q8H PRN PRN Reason: Nausea and Vomiting Psyllium Hydrophilic Mucilloid (Psyllium Seed 3.4 Gm Powd.Pack) 6.8 gm PO DAILY [facility] Last Admin: 08/13/21 08:16 Dose: 6.8 gm Documented by: Sodium Chloride (0.9 % Sodium Chloride Flush 3 Ml Syringe) 3 ml IVFLUSH QSHIFT [facility] Last Admin: 08/13/21 08:13 Dose: 3 ml Documented by: Tramadol HCl (Tramadol Hcl 50 Mg Tablet) 50 mg PO BID PRN PRN Reason: Pain, Severe (Pain Scale 7-10) Valsartan (Valsartan 320 Mg Tablet) 320 mg PO DAILY [facility]; Protocol Last Admin: 08/13/21 08:13 Dose: 320 mg Documented by: Time Spent With Patient Time: Total time spent is greater than 50% in coordination of care (as documented) at patient's floor/unit and/or counseling patient: Time with patient: 15 - 24 minutes Progress Note: Quality Stroke Does the patient have a stroke diagnosis?: No Procedures Date of Service Date of Service: 08/13/21
[2021-08-13 11:18] LABS: Glucose, Whole Blood 166 mg/dL (60-115)
[2021-08-13] MEDS: Insulin Lispro 100 UNIT/ML 3 ML VIAL SUBCUT (11:24)
--- NOTE | 2021-08-13 11:28 | P.DS_ITS ---
DS: Providers Provider Date of Service: 08/13/21 Date of admission: 08/10/21 22:52 Date of discharge: 08/13/21 Primary care physician: Adi Champagne MD Consults: 08/10/21 22:52 Consult to Cardiology Routine Consulting Provider: Davonte Moore Reason for consultation: CHF? Has provider been notified: No Consult to Pulmonology Routine Consulting Provider: Timur Gee Reason for consultation: moderte pleural effusion, symptomatic Has provider been notified: No DS: Diagnosis Discharge Diagnosis (1) Diastolic heart failure: Status: Acute (2) HTN (hypertension): Status: Acute DS: Summary Hospital Course Hospital Course: 86-year-old male with past medical history of arthritis, diabetes, COPD, hypertension who presents to the hospital with complaints of worsening shortness of breath.? Patient reports that he has been having shortness of breath since May but has now worsened.? He is complaining of op knee a, PND, lower extremity edema.? He denies any chest pain, no palpitations, he saw his PCP yesterday who increased his Lasix by an extra pill but he reports that he continues to? have shortness of breath.? He denies any abdominal pain, no nausea or vomiting, no diarrhea constipation, no urinary symptoms and no lower extremity.? No dizziness headache or change in vision.? ?he reports that he did chest x-ray with his primary care doctor yesterday and he was asked to come to the hospital today as a found fluid in his chest. In ED, pt examined fluid overlaoded. W/up including CTA negative for PE; Left pleaural effusion Hospital course Admitted Tele..aggressively diuresed. BP meds adjusted at cardiology reommendations. Good reponse to diuretics...exertional dyspne markedly improved. At this time,pt medically acceptable for D/C; will need close follow up of divalents and repeat CXR 1-2 weeks. If effusion fails to clear...consider theraputic thoracentesis Time Spent with Patient Time attestation: Total time spent providing and/or coordinating discharge services: Discharge coordination time: Greater than 30 minutes Quality: Stroke Does the patient have a stroke diagnosis?: No Physical Exam Vital Signs: Vital Signs: Last Vital Signs Temp 97.6 F 08/13/21 10:57 Pulse 94 08/13/21 10:57 Resp 18 08/13/21 10:57 BP 116/60 08/13/21 10:57 Pulse Ox 94 08/13/21 10:57 BMI result Body Mass Index 32.3 Const: Other: No acute distress Resp: Auscultation: clear to auscultation bilaterally and diminished lung sounds (left base) Cardio: Jugular venous distension: no JVD Rate: regular rate Rhythm: regular rhythm Heart sounds: S1 normal heart sound present, S2 normal heart sound present and no murmurs GI: Palpation (GI): Soft to palpation and nontender Auscultation: normal bowel sounds Extrem: General: Yes edema (trace edema bilaterally) DS: Data Data Completed and Pending Labs on day of discharge: Laboratory Results - last 24 hr 08/12/21 08/12/21 08/12/21 11:16 16:03 20:28 WBC RBC Hgb Hct MCV MCH MCHC RDW Plt Count MPV Immature Gran % (Auto) Neut % (Auto) Lymph % (Auto) [place] % (Auto) Eos % (Auto) Baso % (Auto) Lymph # (Auto) [place] # (Auto) Eos # (Auto) Baso # (Auto) Abs Immat Gran (auto) Absolute Neuts (auto) Absolute Nucleated RBC Nucleated RBC % (auto) Sodium Potassium Chloride Carbon Dioxide Anion Gap BUN Creatinine Estim Creat Clear Calc Estimated GFR POC Glucose 172 H 127 H 137 H Fasting Glucose Calcium Total Bilirubin AST ALT Alkaline Phosphatase Total Protein Albumin 08/13/21 08/13/21 08/13/21 06:28 06:28 07:10 WBC 9.2 RBC 3.17 L Hgb 9.3 L Hct 28.6 L MCV 90.2 MCH 29.3 MCHC 32.5 RDW 13.9 Plt Count 373 MPV 9.6 Immature Gran % (Auto) 0.5 H Neut % (Auto) 56.7 Lymph % (Auto) 24.5 [place] % (Auto) 10.1 Eos % (Auto) 7.9 H Baso % (Auto) 0.3 Lymph # (Auto) 2.3 [place] # (Auto) 0.9 Eos # (Auto) 0.7 H Baso # (Auto) 0.0 Abs Immat Gran (auto) 0.05 H Absolute Neuts (auto) 5.2 Absolute Nucleated RBC 0.000 Nucleated RBC % (auto) 0.0 Sodium 138 Potassium 4.1 Chloride 103 Carbon Dioxide 29 Anion Gap 10 L BUN 26 H Creatinine 1.33 Estim Creat Clear Calc 50.6 Estimated GFR 51 POC Glucose 145 H Fasting Glucose 156 H Calcium 8.6 Total Bilirubin 0.5 AST 15 ALT 17 Alkaline Phosphatase 85 Total Protein 5.8 L Albumin 3.0 L 08/13/21 10:58 WBC RBC Hgb Hct MCV MCH MCHC RDW Plt Count MPV Immature Gran % (Auto) Neut % (Auto) Lymph % (Auto) [place] % (Auto) Eos % (Auto) Baso % (Auto) Lymph # (Auto) [place] # (Auto) Eos # (Auto) Baso # (Auto) Abs Immat Gran (auto) Absolute Neuts (auto) Absolute Nucleated RBC Nucleated RBC % (auto) Sodium Potassium Chloride Carbon Dioxide Anion Gap BUN Creatinine Estim Creat Clear Calc Estimated GFR POC Glucose 166 H Fasting Glucose Calcium Total Bilirubin AST ALT Alkaline Phosphatase Total Protein Albumin Discharge Plan Discharge Patient Disposition: Home, Self-Care Discharge Diagnosis: acute diastolic heart failure Referrals: Adi Champagne MD [Primary Care Provider] - 1 Week Discharge Medications: New isosorbide mononitrate 30 mg Tablet Extended Release 24 Hr 30 mg PO DAILY Qty: 30 0RF Protocol: Hold for SBP< HOLD for SBP < : 90 metoprolol tartrate 50 mg Tablet 50 mg PO BID Qty: 60 0RF Protocol: Hold for SBP/HR < HOLD for SBP < : 90 HOLD for HR < : 60 furosemide [Lasix] 40 mg tablet 40 mg PO DAILY Qty: 30 0RF Continued metformin 500 mg Tablet 500 mg PO BID 0RF valsartan 320 mg Tablet 320 mg PO DAILY 0RF zafirlukast 20 mg Tablet 20 mg PO BID 0RF loratadine 10 mg Tablet 10 mg PO DAILY 0RF doxazosin 2 mg Tablet 2 mg PO DAILY 0RF Asmanex Twisthaler 220 mcg/ actuation (60) Aerosol Powdr Breath Activated 1 inh INHALATION BID 0RF psyllium Packet 2 packet PO DAILY 0RF tramadol 50 mg Tablet 50 mg PO BID PRN (Reason: Pain) 0RF omeprazole 20 mg Capsule,Delayed Release(Dr/Ec) 20 mg PO DAILY 0RF Combivent Respimat 20-100 mcg/actuation Mist 1 puff INHALATION Q6H PRN (Reason: Wheezing) 0RF multivitamin Tablet 1 tab PO DAILY 0RF atorvastatin 40 mg Tablet 40 mg PO BEDTIME 30 Days Qty: 30 0RF Discontinued metoprolol tartrate 25 mg tablet 1 tab PO BID 0RF furosemide 20 mg Tablet 20 mg PO DAILY 0RF Discharge Orders: Discharge Order (Routine); Ordered 08/13/21 Ordered By: Quintin Aviles Diet: advance to usual diet Activity on Discharge: As tolerated Stand Alone Forms: Patient Portal Discharge page Care Plan Goals: Take new therapies(Metoprolol/Isosorbide/lasix) as ordered. Follow up with Dr Champagne 1 week. Health Concerns: Return for worsening SOB/Chest pain Plan of Treatment: You will need repeat chest xray 1-[address] Champagne will arrange Assessment: see DC summary
--- NOTE | 2021-08-13 11:30 | MHC.CM.PN ---
PT CLEARED TO DC HOME TODAY WITH NO SERVICES
== END 2021-08-13 14:05 | disposition home or self-care (01) | DRG 291 ==
LOC: HO.ED 21:25 → HO.EDOVER 23:05 → HO.IMC 08-11 17:59
PROVIDERS: Physician Assistant; Admitting Provider Internal Medicine; Emergency Provider Emergency Medicine; PCP Internal Medicine Medical Oncology; Visit Provider Hospitalist
DX: I11.0 Hypertensive heart disease with heart failure (principal); I50.31 Acute diastolic (congestive) heart failure; E11.9 Type 2 diabetes mellitus without complications; Z20.822 Contact with and (suspected) exposure to COVID-19; Z79.84 Long term (current) use of oral hypoglycemic drugs; Z87.891 Personal history of nicotine dependence; Z79.899 Other long term (current) drug therapy
CPT/HCPCS: 36415; 71045; 71048; 71275; 80048; 80053; 80076; 82947; 83735; 83880; 84484; 85025; 85379; 85610; 85730; 87635; 93005; 96360; 99285; J1940; Q9967

== ENCOUNTER 2021-08-24 07:53 | Outpatient (REF) | payer MEDICARE, SELFPAY ==
[2021-08-24 08:09] LABS: MANUAL DIFF FLAG NO
[2021-08-24 08:24] LABS: Basophils Percent Auto 0.4 % (0-2); Eosinophils Absolute Auto 0.5 X10*3/uL (0.0-0.4); Eosinophils Percent Auto 5.3 % (0-4); Hematocrit 30.5 % (42.0-52.0); Hemoglobin 9.8 g/dl (14.0-18.0); Imm Gran Abs Auto 0.06 X10*3/uL (0.00-0.03); Imm Gran Pct Auto 0.6 % (0.0-0.4); Lymphocytes Percent Auto 20.4 % (20-40); Mean Corpuscular HGB Conc 32.1 g/dl (31.0-36.0); Mean Corpuscular Hemoglobin 29.3 pg (27.0-33.0); Mean Platelet Volume 9.7 fL (9.4-12.4); Monocytes Absolute Auto 0.9 X10*3/uL (0.1-1.2); Neutrophils Absolute Auto 6.4 x10*3/uL (2.0-8.3); Neutrophils Percent Auto 64.3 % (45-73); Platelet Count 362 X10*3/uL (160-400); Red Blood Count 3.35 X10*6/uL (4.60-5.80); Red Cell Distribution Width 14.2 % (11.0-16.0)
[2021-08-24 08:47] LABS: Alanine Aminotransferase 12 U/L (0-40); Albumin Level 3.3 g/dL (3.5-5.0); Alkaline Phosphatase 94 U/L (39-117); Anion Gap 15 (12-20); Aspartate Amino Transferase 13 U/L (5-37); Bilirubin Total 0.5 mg/dL (0.0-1.0); Blood Urea Nitrogen 29 mg/dL (9-16); Calcium 9.1 mg/dL (8.4-10.2); Carbon Dioxide 25 mmol/L (22-29); Chloride 103 mmol/L (96-108); Estimated Glomerular Filt Rate 46; Glucose Random 179 mg/dL (60-115); Potassium 4.8 mmol/L (3.3-5.1); Sodium 138 mmol/L (135-145); Total Protein 6.2 g/dL (6.5-8.0)
== END 2021-08-24 07:54 | disposition home or self-care (01) ==
LOC: HO.LAB 07:53
PROVIDERS: PCP Internal Medicine Medical Oncology; Visit Provider Internal Medicine Medical Oncology
DX: I10 Essential (primary) hypertension (principal)
CPT/HCPCS: 36415; 80053; 85025

== ENCOUNTER 2021-12-13 07:30 | Outpatient (REF) | payer MEDICARE, SELFPAY ==
[2021-12-13 07:54] LABS: MANUAL DIFF FLAG NO
[2021-12-13 08:55] LABS: Basophils Absolute Auto 0.1 X10*3/uL (0.0-0.2); Basophils Percent Auto 0.5 % (0-2); Eosinophils Absolute Auto 0.7 X10*3/uL (0.0-0.4); Eosinophils Percent Auto 7.3 % (0-4); Hematocrit 30.9 % (42.0-52.0); Hemoglobin 9.9 g/dl (14.0-18.0); Imm Gran Abs Auto 0.03 X10*3/uL (0.00-0.03); Imm Gran Pct Auto 0.3 % (0.0-0.4); Lymphocytes Absolute Auto 2.2 X10*3/uL (1.2-4.9); Lymphocytes Percent Auto 24.6 % (20-40); Mean Corpuscular Hemoglobin 28.4 pg (27.0-33.0); Mean Corpuscular Volume 88.8 fL (80.0-98.0); Monocytes Absolute Auto 0.8 X10*3/uL (0.1-1.2); Monocytes Percent Auto 8.8 % (2-11); Neutrophils Absolute Auto 5.3 x10*3/uL (2.0-8.3); Neutrophils Percent Auto 58.5 % (45-73); Platelet Count 322 X10*3/uL (160-400); Red Blood Count 3.48 X10*6/uL (4.60-5.80); Red Cell Distribution Width 16.5 % (11.0-16.0); White Blood Count 9.1 X10*3/uL (4.8-10.8)
[2021-12-13 09:08] LABS: Creatinine Urine 61.88 mg/dL; Microalbum/Creatinine Ratio Ur 458.9 ug/mg cr
[2021-12-13 09:11] LABS: Alanine Aminotransferase 12 U/L (0-40); Albumin Level 3.5 g/dL (3.5-5.0); Alkaline Phosphatase 95 U/L (39-117); Anion Gap 12 (12-20); Aspartate Amino Transferase 13 U/L (5-37); Bilirubin Total 0.5 mg/dL (0.0-1.0); Blood Urea Nitrogen 35 mg/dL (9-16); Calcium 8.7 mg/dL (8.4-10.2); Carbon Dioxide 23 mmol/L (22-29); Chloride 108 mmol/L (96-108); Cholesterol 115 mg/dL; Estimated Glomerular Filt Rate 50; Glucose Fasting 142 mg/dL (60-99); HDL Cholesterol 31 mg/dL; LDL Cholesterol Calculated 73 mg/dl; Potassium 4.6 mmol/L (3.3-5.1); Sodium 138 mmol/L (135-145); Total Protein 6.2 g/dL (6.5-8.0); Triglycerides 58 mg/dL
[2021-12-13 09:43] LABS: Estimated Average Glucose 146 mg/dL; Hemoglobin A1c % 6.7 %
== END 2021-12-13 07:31 | disposition home or self-care (01) ==
LOC: HO.LAB 07:30
PROVIDERS: PCP Internal Medicine Medical Oncology; Visit Provider Internal Medicine Medical Oncology
DX: I10 Essential (primary) hypertension (principal); E78.2 Mixed hyperlipidemia; E11.9 Type 2 diabetes mellitus without complications
CPT/HCPCS: 36415; 80053; 80061; 82043; 83036; 85025

== ENCOUNTER 2022-02-28 08:30 | Emergency (ER) | payer MEDICARE, SELFPAY ==
--- NOTE | ~2022-02-28 | XR_ITS ---
EXAMINATION: THORACIC SPINE 2 VIEWS. LUMBAR SPINE 3 VIEWS. RIGHT RIBS 3 VIEWS WITH CHEST SURVEY CLINICAL INFORMATION: Fall. Injury. COMPARISON: None TECHNIQUE: 3 views lumbar spine. 2 views thoracic spine. 3 views right RIBS with chest survey FINDINGS: Chest: There is blunting of the left costophrenic angle. There is minor fibrotic change in the lungs. No focal consolidations. The heart and pulmonary vessels are normal. No pneumothorax. Right RIBS: The right ribs are intact. Thoracic spine: There is osteopenia and degenerative change in the thoracic spine. There appears to be slight angulation, at the thoracolumbar junction not clearly evaluated for technical reasons. I do not see an acute fracture but there may be chronic wedging at this junction. 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 I cannot exclude compression deformities here. Aorta is atherosclerotic. XR/XR thoracic spine 2V Chronic. IMPRESSION: Compression deformities L2 and L3 likely chronic but age uncertain.
--- NOTE | ~2022-02-28 | XR_ITS ---
EXAMINATION: THORACIC SPINE 2 VIEWS. LUMBAR SPINE 3 VIEWS. RIGHT RIBS 3 VIEWS WITH CHEST SURVEY CLINICAL INFORMATION: Fall. Injury. COMPARISON: None TECHNIQUE: 3 views lumbar spine. 2 views thoracic spine. 3 views right RIBS with chest survey FINDINGS: Chest: There is blunting of the left costophrenic angle. There is minor fibrotic change in the lungs. No focal consolidations. The heart and pulmonary vessels are normal. No pneumothorax. Right RIBS: The right ribs are intact. Thoracic spine: There is osteopenia and degenerative change in the thoracic spine. There appears to be slight angulation, at the thoracolumbar junction not clearly evaluated for technical reasons. I do not see an acute fracture but there may be chronic wedging at this junction. 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 I cannot exclude compression deformities here. Aorta is atherosclerotic. XR/XR ribs RT min 3V w CXR1V Chronic. IMPRESSION: Compression deformities L2 and L3 likely chronic but age uncertain.
--- NOTE | ~2022-02-28 | XR_ITS ---
EXAMINATION: THORACIC SPINE 2 VIEWS. LUMBAR SPINE 3 VIEWS. RIGHT RIBS 3 VIEWS WITH CHEST SURVEY CLINICAL INFORMATION: Fall. Injury. COMPARISON: None TECHNIQUE: 3 views lumbar spine. 2 views thoracic spine. 3 views right RIBS with chest survey FINDINGS: Chest: There is blunting of the left costophrenic angle. There is minor fibrotic change in the lungs. No focal consolidations. The heart and pulmonary vessels are normal. No pneumothorax. Right RIBS: The right ribs are intact. Thoracic spine: There is osteopenia and degenerative change in the thoracic spine. There appears to be slight angulation, at the thoracolumbar junction not clearly evaluated for technical reasons. I do not see an acute fracture but there may be chronic wedging at this junction. 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 I cannot exclude compression deformities here. Aorta is atherosclerotic. XR/XR lumbar spine 2-3V Chronic. IMPRESSION: Compression deformities L2 and L3 likely chronic but age uncertain.
--- NOTE | ~2022-02-28 | CT_ITS ---
EXAMINATION: CT HEAD WITHOUT CONTRAST CLINICAL INFORMATION: Trauma. Hit head. Pain COMPARISON: 11/22/2015 TECHNIQUE: Contiguous axial imaging was performed from the skull base to vertex without intravenous administration of contrast. This CT examination was performed using dose optimization techniques as appropriate, variously including the following: *Automated exposure control *Adjustment of mA and/or kV according to patient size (this includes techniques or standardized protocols for targeted exams where dose is matched to indication/reason for exam; i.e. extremities or head) *Use of iterative reconstruction technique DLP: 810 mGy-cm FINDINGS: There is prominence to the sulci and ventricles. There is deep white matter gliosis all compatible with involutional change. No hemorrhage, mass or mass effect. Moderate to extensive circumferential mucosal thickening seen within the maxillary sinuses. There is mucosal thickening within the left sphenoid sinus. The mastoid air cells are clear. The retrobulbar regions are intact. I do not see an acute calvarial fracture. CT/CT head/brain wo IV con IMPRESSION: Chronic changes noted. No intracranial hemorrhage.
[2022-02-28 08:37] VITALS: BP 155/57; BP 160/64; PULSE 70; PULSE 82; RESP 16; TEMP 36.4; O2SAT 98; BMI 32.5
--- NOTE | 2022-02-28 09:14 | ED.FALL ---
HPI - Fall General Chief Complaint: Fall Stated Complaint: fall Time Seen by Provider: 02/28/22 09:14 Source: patient Mode of arrival: EMS Limitations: no limitations History of Present Illness HPI Narrative: fell backwards going up the stairs, hit head no LOC, complaining of upper and lower back pain. No neck pain. Patient pushed his alert, medics came and picked him up. MD complaint: fall Onset (ago): minute(s) Fall from: standing Place fall occurred: home Loss of consciousness: none Prolonged down time: yes Symptoms prior to fall: none Related Data Home Medications Medication Instructions Recorded Confirmed doxazosin 2 mg tablet 2 mg PO DAILY 06/14/21 08/10/21 ipratropium 20 mcg-albuterol 100 1 puff inhalation Q6H PRN Wheezing 06/14/21 08/10/21 mcg/actuation mist for inhalation (Combivent Respimat) loratadine 10 mg tablet 10 mg PO DAILY 06/14/21 08/10/21 metformin 500 mg tablet 500 mg PO BID 06/14/21 08/10/21 mometasone 220 mcg/actuation(60 1 inh inhalation BID 06/14/21 08/10/21 doses) breath activated powder inhaler (Asmanex Twisthaler) multivitamin 1 tab PO DAILY 06/14/21 08/10/21 omeprazole 20 mg capsule,delayed 20 mg PO DAILY 06/14/21 08/10/21 release psyllium 2 packet PO DAILY 06/14/21 08/10/21 tramadol 50 mg tablet 50 mg PO BID PRN Pain 06/14/21 08/10/21 valsartan 320 mg tablet 320 mg PO DAILY 06/14/21 08/10/21 zafirlukast 20 mg tablet 20 mg PO BID 06/14/21 08/10/21 Previous Rx's Medication Instructions Recorded atorvastatin 40 mg tablet 40 mg PO BEDTIME 30 days #30 tabs 06/16/21 furosemide 40 mg tablet (Lasix) 40 mg PO DAILY #30 tabs 08/13/21 isosorbide mononitrate 30 mg 30 mg PO DAILY #30 tabs 08/13/21 tablet,extended release 24 hr metoprolol tartrate 50 mg tablet 50 mg PO BID #60 tabs 08/13/21 naproxen 500 mg tablet (Naprosyn) 500 mg PO BID #20 tabs 02/28/22 oxycodone-acetaminophen 5 mg-325 1 tab PO TID PRN pain #14 tabs 02/28/22 mg tablet (Percocet) Allergies Allergy/AdvReac Type Severity Reaction Status Date / Time No Known Allergies Allergy Verified 07/25/21 14:11 Review of Systems Constitutional: Constitutional: Reports no additional constitutional complaints Eyes: Eyes: Reports no additional eye complaints ENT: Denies dizziness Cardiovascular: Cardiovascular: Reports no additional cardiovascular complaints Respiratory: Respiratory: Reports as per HPI Gastrointestinal: Gastrointestinal: Reports no additional gastrointestinal complaints Musculoskeletal: Musculoskeletal: Reports no additional musculoskeletal complaints Integumentary/Breasts: Skin/Breast: Denies rash Neurologic: Reports system reviewed and no additional complaints, except as documented, Denies dizziness and Denies Sensory deficit (Neuro) Psychiatric: Psychiatric: Denies anxiety PMFSH Past Medical History Medical History Arthritis Diabetes Emphysema of lung Hypertension Surgical History History of knee replacement (09/30/12) Family History Family History Father No problems noted. Mother Cancer Brother No problems noted. Daughter No problems noted. Social History Social History Household Members: None Housing: House Do you presently have visiting nurse or other home services: No Alcohol intake: current Alcohol intake frequency: a few times a month Patient Tobacco Use Status: Former Tobacco user Quit Date: 30 years ago Tobacco use type: Cigarette Use of substances other than those prescribed or required for medical reasons: No Advance Directives: Yes Advance Directives on File: Yes Advance Directives Date on File: 08/11/21 service: Yes Current occupational status: retired Physical Exam Vital Signs: Vital Signs: Last Vital Signs Temp 98.6 F 02/28/22 10:54 Pulse 88 02/28/22 10:54 Resp 18 02/28/22 10:54 BP 147/66 H 02/28/22 10:54 Pulse Ox 98 02/28/22 10:54 O2 Del Method 02/28/22 10:54 BMI result Body Mass Index 32.5 Const: General: healthy appearing Nutritional Appearance: average body habitus Orientation/consciousness: oriented to person and patient oriented x3 Limitations: no limitations HEENT: Head: Yes normal to inspection Ears: external ears normal General nose exam: Normal external nose present Mouth: Normal oral and palatal mucosa present and oropharynx normal Throat: Yes posterior oropharynx normal Eyes: General: appearance normal, both eyes and all related structures Neck: Other: supple Neck: Yes normal visual inspection Chest: Other: right rib tenderness Resp: Auscultation: clear to auscultation bilaterally Cardio: Jugular venous distension: no JVD Rate: regular rate Rhythm: regular rhythm Heart sounds: S1 normal heart sound present and S2 normal heart sound present GI: Inspection: Yes normal to inspection Palpation (GI): Soft to palpation, nontender and No hepatosplenomegaly present Auscultation: normal bowel sounds Back/Spine/Pelvis: Other: thoracic and lumbar pain Skin: General skin exam: no rashes or lesions noted Neuro: General: oriented to person and patient oriented x3 Cranial nerves: Yes CN's II-XII intact bilaterally Motor exam (neuro): 5/5 motor strength present throughout Sensory Exam: No Sensory deficit (Neuro) Extrem: General: Yes normal to inspection Psych: Appearance: grossly normal Course Reevaluation(s) Reevaluation #1: no fractures. Will have the patient evaluated by PT and social sciences professor Time: 12:24 Reevaluation #2: seen and cleared by social sciences professor will dc home. Will dc on naprosyn and percocet Time: 13:23 MDM - Fall Imaging Data CT scan - head: Radiologist's impression: IMPRESSION: Chronic changes noted. No intracranial hemorrhage. ? thoracic, lumbar and right ribs: Radiologist's impression: FINDINGS: Chest: There is blunting of the left costophrenic angle. There is minor fibrotic change in the lungs. No focal consolidations. The heart and pulmonary vessels are normal. No pneumothorax. Right RIBS: The right ribs are intact. Thoracic spine: There is osteopenia and degenerative change in the thoracic spine. There appears to be slight angulation, at the thoracolumbar junction not clearly evaluated for technical reasons. I do not see an acute fracture but there may be chronic wedging at this junction. 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 I cannot exclude compression deformities here. Aorta is atherosclerotic. XR/XR lumbar spine 2-3V Chronic. IMPRESSION: Compression deformities L2 and L3 likely chronic but age uncertain.? Discharge Plan Discharge Clinical Impression: Contusion of back, Chest wall contusion Patient Disposition: Home, Self-Care Instructions: Contusion in Adults (ED), Rib Contusion (ED) Additional Instructions: ice off and on every 20 minutes Prescriptions: New oxycodone-acetaminophen [Percocet] 5-325 mg tablet 1 tab PO TID PRN (Reason: pain) Qty: 14 0RF Rx Instructions: Partial Fill upon patient request. naproxen [Naprosyn] 500 mg tablet 500 mg PO BID Qty: 20 0RF No Action isosorbide mononitrate 30 mg Tablet Extended Release 24 Hr 30 mg PO DAILY Qty: 30 0RF Protocol: Hold for SBP< HOLD for SBP < : 90 metoprolol tartrate 50 mg Tablet 50 mg PO BID Qty: 60 0RF Protocol: Hold for SBP/HR < HOLD for SBP < : 90 HOLD for HR < : 60 furosemide [Lasix] 40 mg tablet 40 mg PO DAILY Qty: 30 0RF metformin 500 mg Tablet 500 mg PO BID valsartan 320 mg Tablet 320 mg PO DAILY zafirlukast 20 mg Tablet 20 mg PO BID loratadine 10 mg Tablet 10 mg PO DAILY doxazosin 2 mg Tablet 2 mg PO DAILY Asmanex Twisthaler 220 mcg/ actuation (60) Aerosol Powdr Breath Activated 1 inh INHALATION BID psyllium Packet 2 packet PO DAILY tramadol 50 mg Tablet 50 mg PO BID PRN (Reason: Pain) omeprazole 20 mg Capsule,Delayed Release(Dr/Ec) 20 mg PO DAILY Combivent Respimat 20-100 mcg/actuation Mist 1 puff INHALATION Q6H PRN (Reason: Wheezing) multivitamin Tablet 1 tab PO DAILY atorvastatin 40 mg Tablet 40 mg PO BEDTIME 30 Days Qty: 30 0RF Referrals: Adi Champagne MD [Primary Care Provider] - 5 days
[2022-02-28 09:36] VITALS: BP 150/57; PULSE 85; RESP 16; O2SAT 96
[2022-02-28] MEDS: Ketorolac Tromethamine 60 MG/2 ML VIAL IM (09:42)
[2022-02-28 10:54] VITALS: BP 147/66; PULSE 88; RESP 18; TEMP 37; O2SAT 98
[2022-02-28] MEDS: HYDROmorphone HCl 1 MG/ML SYRINGE IM (11:28)
--- NOTE | 2022-02-28 12:44 | PC.NURSE ---
PT AT BEDSIDE. PT CONTINUING TO C/O R RIB AND LUMBAR PAIN 12/08
[2022-02-28 13:18] VITALS: BP 147/66; PULSE 88; O2SAT 98
--- NOTE | 2022-02-28 13:31 | MHC.CM.ED ---
Received case management consult from Dr Alonso. Patient came to ER after a fall. Work up essentially negative. Physical therapy eval completed. Home therapy is recommended. Met with patient in regards to discharge planning. Patient lives alone, ambulates with a cane/walker and had no services prior to coming to the hospital. PCP verified. Copy of HCP verified to be on file. Patient received 2 Moderna vaccines and 2 moderna boosters. [facility] requesting T/W speak with patient's daughter, Ivelisse. T/W spoke wtjovon [place] via telephone at [phone]. Ivelisse will come to the ER around 2pm to transport pateint home. Patient, Ana M TURNER and Dr Alonso aware. Continue to monitor for d/c needs.
[2022-02-28 13:49] VITALS: BP 161/66; PULSE 104; RESP 16; O2SAT 97
== END 2022-02-28 14:21 | disposition home or self-care (01) ==
PROVIDERS: Emergency Provider Emergency Medicine; PCP Internal Medicine Medical Oncology
DX: S30.0XXA Contusion of lower back and pelvis, initial encounter (principal); S20.213A Contusion of bilateral front wall of thorax, initial encounter; R51.9 Headache, unspecified; M54.2 Cervicalgia; M54.50 Low back pain, unspecified; R26.2 Difficulty in walking, not elsewhere classified; W10.9XXA Fall (on) (from) unspecified stairs and steps, initial encounter; Y93.9 Activity, unspecified; Y92.9 Unspecified place or not applicable; Y99.9 Unspecified external cause status; Z79.899 Other long term (current) drug therapy
CPT/HCPCS: 70450; 71101; 72070; 72100; 97162; 99284; J1170; J1885

== ENCOUNTER 2022-03-20 07:36 | Outpatient (REF) | payer MEDICARE, SELFPAY ==
[2022-03-20 08:02] LABS: MANUAL DIFF FLAG NO
[2022-03-20 08:41] LABS: Basophils Absolute Auto 0.1 X10*3/uL (0.0-0.2); Basophils Percent Auto 0.7 % (0-2); Eosinophils Absolute Auto 1.1 X10*3/uL (0.0-0.4); Eosinophils Percent Auto 9.8 % (0-4); Hematocrit 33.5 % (42.0-52.0); Hemoglobin 10.8 g/dl (14.0-18.0); Imm Gran Abs Auto 0.06 X10*3/uL (0.00-0.03); Imm Gran Pct Auto 0.5 % (0.0-0.4); Lymphocytes Absolute Auto 2.7 X10*3/uL (1.2-4.9); Lymphocytes Percent Auto 23.8 % (20-40); Mean Corpuscular HGB Conc 32.2 g/dl (31.0-36.0); Mean Corpuscular Hemoglobin 30.6 pg (27.0-33.0); Mean Corpuscular Volume 94.9 fL (80.0-98.0); Mean Platelet Volume 9.6 fL (9.4-12.4); Monocytes Absolute Auto 1.1 X10*3/uL (0.1-1.2); Monocytes Percent Auto 9.4 % (2-11); Neutrophils Absolute Auto 6.3 x10*3/uL (2.0-8.3); Neutrophils Percent Auto 55.8 % (45-73); Platelet Count 420 X10*3/uL (160-400); Red Blood Count 3.53 X10*6/uL (4.60-5.80); Red Cell Distribution Width 15.1 % (11.0-16.0); White Blood Count 11.4 X10*3/uL (4.8-10.8)
[2022-03-20 08:57] LABS: Estimated Average Glucose 134 mg/dL; Hemoglobin A1c % 6.3 %
[2022-03-20 09:09] LABS: Alanine Aminotransferase 16 U/L (0-40); Albumin Level 3.6 g/dL (3.5-5.0); Alkaline Phosphatase 136 U/L (39-117); Anion Gap 17 (12-20); Aspartate Amino Transferase 15 U/L (5-37); Bilirubin Total 0.4 mg/dL (0.0-1.0); Blood Urea Nitrogen 44 mg/dL (9-16); Calcium 9.4 mg/dL (8.4-10.2); Carbon Dioxide 22 mmol/L (22-29); Chloride 107 mmol/L (96-108); Cholesterol 101 mg/dL; Estimated Glomerular Filt Rate 43; Glucose Fasting 142 mg/dL (60-99); HDL Cholesterol 28 mg/dL; LDL Cholesterol Calculated 62 mg/dl; Potassium 5.8 mmol/L (3.3-5.1); Sodium 140 mmol/L (135-145); Total Protein 6.4 g/dL (6.5-8.0); Triglycerides 56 mg/dL
[2022-03-20 09:31] LABS: Prostate Specific Antigen 0.56 ng/mL (<0.05-4.0)
== END 2022-03-20 07:37 | disposition home or self-care (01) ==
LOC: HO.LAB 07:36
PROVIDERS: PCP Internal Medicine Medical Oncology; Visit Provider Internal Medicine Medical Oncology
DX: Z13.89 Encounter for screening for other disorder (principal)
CPT/HCPCS: 36415; 80053; 80061; 83036; 84153; 85025

== ENCOUNTER 2022-03-20 19:34 | Emergency (ER) | payer MEDICARE, SELFPAY ==
--- NOTE | ~2022-03-20 | CT_ITS ---
EXAMINATION: NONCONTRAST HEAD CT NONCONTRAST CERVICAL SPINE CT INDICATION INFORMATION: Fall, hit head with headache. COMPARISON: Head CT 02/28/2022, CT cervical spine 02/18/2019 TECHNIQUE: Separate noncontrast CT examinations of the head and cervical spine were performed. Coronal and sagittal images were created for each examination at the technologist workstation. This CT examination was performed using dose optimization techniques as appropriate, variously including the following: *Automated exposure control *Adjustment of mA and/or kV according to patient size (this includes techniques or standardized protocols for targeted exams where dose is matched to indication/reason for exam; i.e. extremities or head) *Use of iterative reconstruction technique DLP: 1349 mGy-cm FINDINGS: HEAD: No intra or extra-axial fluid collection, hemorrhage, or mass. No ventriculomegaly. No midline shift or herniation. Basal cisterns are patent. Du-white matter differentiation is maintained. No territorial encephalomalacia. Proportional prominence of the ventricles and sulcal spaces is consistent with moderate volume loss. Patchy periventricular and deep white matter hypoattenuation is consistent with mild small vessel ischemic changes. No calvarial fracture or soft tissue abnormality. Complete opacification left sphenoid sinus with hyperostosis. Mucosal thickening in maxillary antra small air-fluid levels bilaterally. Mastoid air cells normally aerated. Status post lateral lens extractions. CERVICAL SPINE: Alignment: Straightening of the normal cervical lordosis. No subluxation. Vertebra: Age-indeterminate mild superior endplate compression fracture of T2. Finding is new since prior CT of 2018. No other fracture. No prevertebral soft tissue swelling. Degenerative disc disease: Advanced multilevel cervical spondylosis. Ankylosis at C3-C4 and C6-C7. Multilevel disc height loss, endplate sclerosis and proliferative change. 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 Multilevel bilateral facet arthrosis. Facet joint ankylosis bilaterally at C3-C4. Other findings: Lung apices grossly clear allowing for extensive respiratory motion artifact. No cervical lymphadenopathy or mass. Thyroid gland is grossly unremarkable. CT/CT cervical spine wo IV con IMPRESSION: 1. No intracranial hemorrhage or calvarial fracture. 2. No traumatic subluxation or acute cervical spine fracture. 3. Mild superior endplate compression deformity of T2, new since 2019, though exact age uncertain. Correlate with pain referable to this level on exam. 4. 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 5. Paranasal sinus disease.
[2022-03-20 20:18] VITALS: BP 143/64; PULSE 89; RESP 16; O2SAT 98; BMI 31.6
[2022-03-20 20:22] VITALS: BP 140/52; PULSE 85; RESP 22; TEMP 37; O2SAT 97
--- NOTE | 2022-03-20 20:32 | ED.FALL ---
HPI - Fall General Chief Complaint: Fall Stated Complaint: fall Time Seen by Provider: 03/20/22 20:12 Source: patient and EMS Mode of arrival: EMS Limitations: no limitations History of Present Illness HPI Narrative: patient comes to the emergency room complaining a fall, head injury and a skin tear. Patient states that he was walking in his house, patient's knee gave out and he fell backwards. Patient states that he has had issues with his knee in the past. Patient hit his head, did not lose consciousness, not on blood thinners, denies headache. Patient states that he could not get up, had to push his Life Alert button, paramedics helped him up. Patient states that on February 28, he had a similar incident. Now, patient gets At home physical therapy through the [facility]. at this time, patient complaining of localized pain in the scalp and upper arm on the right side where the skin abrasion is. Patient denies having any chest pain or shortness of breath. Patient has chronic back pain, states that he is due for a procedure tomorrow, denies any new back pain. Denies urinary incontinence /retention. Related Data Home Medications Medication Instructions Recorded Confirmed doxazosin 2 mg tablet 2 mg PO DAILY 06/14/21 08/10/21 ipratropium 20 mcg-albuterol 100 1 puff inhalation Q6H PRN Wheezing 06/14/21 08/10/21 mcg/actuation mist for inhalation (Combivent Respimat) loratadine 10 mg tablet 10 mg PO DAILY 06/14/21 08/10/21 metformin 500 mg tablet 500 mg PO BID 06/14/21 08/10/21 mometasone 220 mcg/actuation(60 1 inh inhalation BID 06/14/21 08/10/21 doses) breath activated powder inhaler (Asmanex Twisthaler) multivitamin 1 tab PO DAILY 06/14/21 08/10/21 omeprazole 20 mg capsule,delayed 20 mg PO DAILY 06/14/21 08/10/21 release psyllium 2 packet PO DAILY 06/14/21 08/10/21 tramadol 50 mg tablet 50 mg PO BID PRN Pain 06/14/21 08/10/21 valsartan 320 mg tablet 320 mg PO DAILY 06/14/21 08/10/21 zafirlukast 20 mg tablet 20 mg PO BID 06/14/21 08/10/21 Previous Rx's Medication Instructions Recorded atorvastatin 40 mg tablet 40 mg PO BEDTIME 30 days #30 tabs 06/16/21 furosemide 40 mg tablet (Lasix) 40 mg PO DAILY #30 tabs 08/13/21 isosorbide mononitrate 30 mg 30 mg PO DAILY #30 tabs 08/13/21 tablet,extended release 24 hr metoprolol tartrate 50 mg tablet 50 mg PO BID #60 tabs 08/13/21 naproxen 500 mg tablet (Naprosyn) 500 mg PO BID #20 tabs 02/28/22 oxycodone-acetaminophen 5 mg-325 1 tab PO TID PRN pain #14 tabs 02/28/22 mg tablet (Percocet) Allergies Allergy/AdvReac Type Severity Reaction Status Date / Time No Known Allergies Allergy Verified 07/25/21 14:11 Review of Systems Review of Systems: Constitutional : No Weight loss, No Fever, No Chills, No Night Sweats, No Fatigue, No Malaise ENT/Mouth : No Hearing loss, No Ear Pain, No Nasal Congestion, No Sinus Pain, No Hoarseness, No sore throat, No Rhinorrhea, No Swallowing Difficulty Eyes: No Eye Pain, No Swelling, No Redness, No Foreign Body, No Discharge, No Vision Changes Cardiovascular : No Chest Pain, No SOB, No Dyspnea on Exertion, No Orthopnea, No Edema, No Palpitations Respiratory : No Cough, No Sputum, No Wheezing, No Smoke Exposure, No Dyspnea Gastrointestinal : No Nausea, No Vomiting, No Diarrhea, No Constipation, No abdominal Pain, No Hematochezia, No Melena Genitourinary : no irregular bleeding, No Dysuria, No Urinary Frequency, No Hematuria, No Urinary Incontinence, No Urgency, No Flank Pain, No Urinary Flow Changes, No Hesitancy Musculoskeletal : complaining of chronic back pain, No joint pain, No Myalgias, No Joint Swelling Skin : complaining ecchymosis in the scalp on the left, right arm skin tear Neuro : No Weakness, No Numbness, No Paresthesias, No Loss of Consciousness, No Dizziness, No Headache Psych : No Anxiety/Panic, No Depression, No SI/HI/AH/VH, No Social Issues, Heme/Lymph: No Bruising, No Bleeding,No Lymphadenopathy Endocrine : No Polyuria, No Polydipsia, No Temperature Intolerance [facility] Past Medical History Medical History Arthritis Diabetes Emphysema of lung Hypertension Surgical History History of knee replacement (09/30/12) Family History Family History Father No problems noted. Mother Cancer Brother No problems noted. Daughter No problems noted. Social History Social History Household Members: None Housing: House Do you presently have visiting nurse or other home services: No Alcohol intake: current Alcohol intake frequency: a few times a month Patient Tobacco Use Status: Former Tobacco user Quit Date: 30 years ago Tobacco use type: Cigarette Advance Directives: Yes Advance Directives on File: Yes Advance Directives Date on File: 08/11/21 service: Yes Current occupational status: retired Physical Exam Vital Signs: Vital Signs: Last Vital Signs Temp 98.6 F 03/20/22 20:22 Pulse 85 03/20/22 20:22 Resp 22 H 03/20/22 20:22 BP 140/52 H 03/20/22 20:22 Pulse Ox 97 03/20/22 20:22 O2 Del Method 03/20/22 20:22 BMI result Body Mass Index 31.6 Const: Other: Appearance: Alert. Oriented X3. No acute distress. Eyes: Pupils equal, round and reactive to light. ENT: Pharynx normal. Neck: Normal inspection. Neck supple. No lymph nodes noted. No crepitus CVS: Normal heart rate and rhythm. Pulses normal. Normal S1 and S2 Respiratory: No respiratory distress. Breath sounds normal. No Wheezing. No rales Abdomen: Soft and nontender. No rigidity. No distention. Skin: Skin warm and dry. Very small ecchymosis on the left side, no laceration or abrasion. Patient has a skin tear triangular shape on the tricepital area in the right arm Extremities: No lower extremity edema. No Lacerations. No Rash Neuro: Oriented X 3. No motor deficit. No sensory deficit. Moving all extremities. No slurred speech. CN 2 through 12 grossly intact Psych: calm, cooperative, normal affect Course Course Course Narrative: head and cervical spine CT pending. The skin tear has been cleaned and Steri-Strips placed over it. Bleeding controlled. I discussed with the patient that the CT scan shows an age indeterminate T2 fracture. Patient states that he has no new upper back pain. Patient has chronic lower back pain, which did not change from the fall today. He is not aware of having a compression fracture. However he has no pain over the upper thoracic spine Patient declined any further services by case management or physical therapy. Patient was ambulated with a walker in the ED at baseline, pt will be returning home per patient's request MDM - Fall Imaging Data head and cervical spine CT scan: Radiologist's impression: HEAD: No intra or extra-axial fluid collection, hemorrhage, or mass. No ventriculomegaly. No midline shift or herniation. Basal cisterns are patent. Du-white matter differentiation is maintained. No territorial encephalomalacia. ?Proportional prominence of the ventricles and sulcal spaces is consistent with moderate volume loss. Patchy periventricular and deep white matter hypoattenuation is consistent with mild small vessel ischemic changes. No calvarial fracture or soft tissue abnormality. Complete opacification left sphenoid sinus with hyperostosis. Mucosal thickening in maxillary antra small air-fluid levels bilaterally. Mastoid air cells normally aerated. Status post lateral lens extractions. CERVICAL SPINE: Alignment: Straightening of the normal cervical lordosis. No subluxation. Vertebra: Age-indeterminate mild superior endplate compression fracture of T2. Finding is new since prior CT of 2019. No other fracture. No prevertebral soft tissue swelling. Degenerative disc disease: Advanced multilevel cervical spondylosis. Ankylosis at C3-C4 and C6-C7. Multilevel disc height loss, endplate sclerosis and proliferative change. 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 Multilevel bilateral facet arthrosis. Facet joint ankylosis bilaterally at C3-C4. Other findings: Lung apices grossly clear allowing for extensive respiratory motion artifact. No cervical lymphadenopathy or mass. Thyroid gland is grossly unremarkable. CT/CT cervical spine wo IV con IMPRESSION: ? 1. No intracranial hemorrhage or calvarial fracture. 2. No traumatic subluxation or acute cervical spine fracture. 3. Mild superior endplate compression deformity of T2, new since 2019, though exact age uncertain. Correlate with pain referable to this level on exam. 4. 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 5. Paranasal sinus disease. Discharge Plan Discharge Clinical Impression: Fall, Scalp bruising, Skin tear of right upper extremity Patient Disposition: Home, Self-Care Instructions: Skin Tear (ED) Prescriptions: No Action isosorbide mononitrate 30 mg Tablet Extended Release 24 Hr 30 mg PO DAILY Qty: 30 0RF Protocol: Hold for SBP< HOLD for SBP < : 90 metoprolol tartrate 50 mg Tablet 50 mg PO BID Qty: 60 0RF Protocol: Hold for SBP/HR < HOLD for SBP < : 90 HOLD for HR < : 60 furosemide [Lasix] 40 mg tablet 40 mg PO DAILY Qty: 30 0RF oxycodone-acetaminophen [Percocet] 5-325 mg tablet 1 tab PO TID PRN (Reason: pain) Qty: 14 0RF Rx Instructions: Partial Fill upon patient request. naproxen [Naprosyn] 500 mg tablet 500 mg PO BID Qty: 20 0RF metformin 500 mg Tablet 500 mg PO BID valsartan 320 mg Tablet 320 mg PO DAILY zafirlukast 20 mg Tablet 20 mg PO BID loratadine 10 mg Tablet 10 mg PO DAILY doxazosin 2 mg Tablet 2 mg PO DAILY Asmanex Twisthaler 220 mcg/ actuation (60) Aerosol Powdr Breath Activated 1 inh INHALATION BID psyllium Packet 2 packet PO DAILY tramadol 50 mg Tablet 50 mg PO BID PRN (Reason: Pain) omeprazole 20 mg Capsule,Delayed Release(Dr/Ec) 20 mg PO DAILY Combivent Respimat 20-100 mcg/actuation Mist 1 puff INHALATION Q6H PRN (Reason: Wheezing) multivitamin Tablet 1 tab PO DAILY atorvastatin 40 mg Tablet 40 mg PO BEDTIME 30 Days Qty: 30 0RF
== END 2022-03-20 22:47 | disposition home or self-care (01) ==
PROVIDERS: Emergency Provider Emergency Medicine; PCP Internal Medicine Medical Oncology
DX: S00.03XA Contusion of scalp, initial encounter (principal); S40.811A Abrasion of right upper arm, initial encounter; R51.9 Headache, unspecified; M54.2 Cervicalgia; W01.10XA Fall on same level from slipping, tripping and stumbling with subsequent striking against unspecified object, initial encounter; Y93.9 Activity, unspecified; Y92.009 Unspecified place in unspecified non-institutional (private) residence as the place of occurrence of the external cause; Y99.9 Unspecified external cause status; Z79.899 Other long term (current) drug therapy; Z87.891 Personal history of nicotine dependence
CPT/HCPCS: 36415; 70450; 72125; 80053; 80061; 83036; 84153; 85025; 99282; 99284

== ENCOUNTER 2022-04-21 08:29 | Inpatient (IN) | payer MEDICARE, SELFPAY ==
--- NOTE | ~2022-04-21 | XR_ITS ---
EXAMINATION: XR chest 1V CLINICAL INFORMATION: Reason for Exam hypoxia /covid COMPARISON: Chest radiograph 04/21/2022 TECHNIQUE: One view of the chest FINDINGS: Similar moderate right and small left pleural effusions with patchy bibasilar airspace opacities. No pneumothorax. Unchanged cardiomediastinal silhouette. XR/XR chest 1V Impression: Similar moderate right and small left pleural effusions with patchy bibasilar airspace opacities which may reflect atelectasis, aspiration or infection.
--- NOTE | ~2022-04-21 | XR_ITS ---
EXAMINATION: XR CHEST CLINICAL INFORMATION: Shortness of breath COMPARISON: February 28, 2022 TECHNIQUE: AP portable view of the chest was obtained. FINDINGS: Patient has developed a small right pleural effusion with some basilar disease since previous examination. There also is some stable blunting of the left costophrenic angle. Heart normal size. No evidence of pulmonary edema. No pneumothorax is seen. XR/XR chest 1V IMPRESSION: Interval development of small right pleural effusion with basilar disease.
--- NOTE | ~2022-04-21 | NM_ITS ---
PULMONARY PERFUSION ONLY STUDY: CLINICAL INDICATION: Hypoxia. PROCEDURE: Following the intravenous administration of 4.0 millicuries technetium 99m MAA, images of the chest were obtained in multiple projections using a gamma scintiphotographic camera. COMPARISON: Prior perfusion only scintigraphic images of the lung done on 06/14/2021. Chest radiograph done yesterday. The chest radiograph shows presence of bilateral pleural effusions and/or thickening and bibasilar airspace disease. PERFUSION IMAGES: Small subsegmental perfusion defects are present at both upper lobes, new since prior study. Heterogeneous prominent bilateral fissures are noted (right greater than left), consistent with bilateral pleural effusions, seen on the chest radiograph done yesterday. NM/NM pul perfusion IMPRESSION: Based on perfusion only modified PIOPED 2 criteria, the study is considered nondiagnostic.
--- NOTE | ~2022-04-21 | US_ITS ---
EXAMINATION: US VENOUS ULTRASOUND WITH DOPPLER LOWER EXTREMITY, BILATERAL CLINICAL INFORMATION: 86-year-old male with history of hypoxia and concern for deep vein thrombosis. COMPARISON: Prior ultrasound from 05/23/2020 and 04/04/2020 TECHNIQUE: Ultrasound of the deep veins is performed from the hip to the calf with compression sonography and color and pulse Doppler assessment. Spectral analysis with color-flow imaging is performed. FINDINGS: The common femoral vein is compressible and exhibits a normal phasic waveform, bilaterally; this suggests that the iliac veins are widely patent above. Within each proximal thigh, the visualized profunda femoris vein is patent. The visualized greater saphenous veins and saphenofemoral junctions are normal. Superficial femoral vein is patent in the proximal, mid and distal aspect of each thigh. Popliteal vein is normal to the level of the trifurcation, bilaterally, and the visualized posterior tibial and peroneal veins are patent. No evidence of [place]'s cyst. US/US venous duplex LE BI IMPRESSION: No evidence of deep vein thrombosis in either lower extremity.
[2022-04-21 08:59] VITALS: BP 167/77; PULSE 110; RESP 22; TEMP 36.9; O2SAT 96; BMI 31.5
--- NOTE | 2022-04-21 09:02 | ED_ITS ---
HPI - SOB/Dyspnea General Chief Complaint: Dyspnea Stated Complaint: diff breathing Time Seen by Provider: 04/21/22 08:56 Source: patient, family and old records reviewed Mode of arrival: ambulatory Limitations: no limitations History of Present Illness HPI Narrative: 86-year-old male with history of HTN, asthma/COPD, HFpEF, CKD (baseline SCr 1.3- 1.5), DM, former smoker (30+ pack year) who presents to the ER from home for evaluation of SOB worsening over the last 3-4 days. Family states he has been dyspneic with exertion for the last couple of weeks but now he is SOB at rest. He was seen by nursing VNA on 04/18 at home when his symptoms 1st started to worsen - he was hypertensive and encouraged to come to the ER however he declined. He has been compliant with his inhalers. He weighed himself yesterday and noticed he was up a couple of pounds overnight. He denies any chest pain, coughing, fever, chills, nausea, vomiting, abdominal pain, diaphoresis. He denies any changes in his LE edema. MD elicited complaint: shortness of breath Pertinent past history: COPD, asthma and congestive heart failure Onset (ago): day(s) (4) Context: occurred during exertion Timing: progressively worsening Severity: moderate Exacerbating factors: exertion Relieving factors: rest and upright position Known history of: COPD, asthma, congestive heart failure and diabetes Associated symptoms: lower extremity pain Treatment prior to arrival: none Related Data Home oxygen amount: none Home Medications Medication Instructions Recorded Confirmed doxazosin 2 mg tablet 2 mg PO DAILY 06/14/21 08/10/21 ipratropium 20 mcg-albuterol 100 1 puff inhalation Q6H PRN Wheezing 06/14/21 08/10/21 mcg/actuation mist for inhalation (Combivent Respimat) loratadine 10 mg tablet 10 mg PO DAILY 06/14/21 08/10/21 metformin 500 mg tablet 500 mg PO BID 06/14/21 08/10/21 mometasone 220 mcg/actuation(60 1 inh inhalation BID 06/14/21 08/10/21 doses) breath activated powder inhaler (Asmanex Twisthaler) multivitamin 1 tab PO DAILY 06/14/21 08/10/21 omeprazole 20 mg capsule,delayed 20 mg PO DAILY 06/14/21 08/10/21 release psyllium 2 packet PO DAILY 06/14/21 08/10/21 tramadol 50 mg tablet 50 mg PO BID PRN Pain 06/14/21 08/10/21 valsartan 320 mg tablet 320 mg PO DAILY 06/14/21 08/10/21 zafirlukast 20 mg tablet 20 mg PO BID 06/14/21 08/10/21 Previous Rx's Medication Instructions Recorded atorvastatin 40 mg tablet 40 mg PO BEDTIME 30 days #30 tabs 06/16/21 furosemide 40 mg tablet (Lasix) 40 mg PO DAILY #30 tabs 08/13/21 isosorbide mononitrate 30 mg 30 mg PO DAILY #30 tabs 08/13/21 tablet,extended release 24 hr metoprolol tartrate 50 mg tablet 50 mg PO BID #60 tabs 08/13/21 naproxen 500 mg tablet (Naprosyn) 500 mg PO BID #20 tabs 02/28/22 oxycodone-acetaminophen 5 mg-325 1 tab PO TID PRN pain #14 tabs 02/28/22 mg tablet (Percocet) Allergies Allergy/AdvReac Type Severity Reaction Status Date / Time No Known Allergies Allergy Verified 07/25/21 14:11 Review of Systems Review of Systems: Constitutional: No Fever, No Chills ENT/Mouth: No sore throat, No Rhinorrhea, No Swallowing Difficulty Cardiovascular: No Chest Pain, + SOB, +Orthopnea, + Edema Respiratory: No Cough, No Sputum, No Wheezing, + dyspnea Gastrointestinal: No Nausea, No Vomiting, No Diarrhea, No abdominal Pain, No Hematochezia, No Melena Genitourinary: No Dysuria, No Urinary Frequency, No Hematuria Musculoskeletal: No joint pain, No Myalgias Skin: No Skin Lesions, No rash Neuro: No Weakness, No Numbness, No Dizziness, No Headache Psych: No Anxiety/Panic, No Depression Heme/Lymph: No Bruising, No Lymphadenopathy Endocrine: No Polyuria, No Polydipsia PMFSH Past Medical History Medical History Arthritis Diabetes Emphysema of lung Hypertension Surgical History History of knee replacement (09/30/12) Family History Family History Father No problems noted. Mother Cancer Brother No problems noted. Daughter No problems noted. Social History Social History Household Members: None Housing: House Do you presently have visiting nurse or other home services: No Alcohol intake: current Alcohol intake frequency: holidays/special occasions only Patient Tobacco Use Status: Former Tobacco user Quit Date: 30 years ago Tobacco use type: Cigarette Use of substances other than those prescribed or required for medical reasons: No Advance Directives: Yes Advance Directives on File: Yes Advance Directives Date on File: 08/11/21 service: Yes Current occupational status: retired Physical Exam Vital Signs: Vital Signs: Last Vital Signs Temp 98.5 F 04/21/22 08:59 Pulse 110 H 04/21/22 08:59 Resp 22 H 04/21/22 09:54 BP 167/77 H 04/21/22 08:59 Pulse Ox 96 04/21/22 09:54 O2 Del Method 04/21/22 09:54 BMI result Body Mass Index 31.5 Appearance: Alert. Oriented X3. Mild acute distress. Eyes: Pupils equal, round and reactive to light. Right eye more closed than the left but without droop ENT: Pharynx normal. Neck: Tachycardic, regular rhythm. Pulses normal. Respiratory: Mild respiratory distress. Breath sounds diminished at the b ilateral bases, right worse than left. No wheezes or rhonchi. With speaking in 3-4 word sentences. Abdomen: Rotund, Soft and nontender. +BS x4 Skin: Skin warm and dry. Normal skin color. Normal skin turgor. No rashes. Extremities: 1+ lower extremity edema with hyperpigmentation chronic venous st asis changes Neuro: Oriented X 3. No motor deficit. No sensory deficit. Course Course Course Narrative: 86 yo male with history of asthma/COPD, HFpEF, HTN, DM, former smokre who presents to the ER with worsening SOB and [place] for the last 3-4 days along with weight gain and slight cough. Tachypenic and tachycardic on arrival, SOB with minimal exertion but not hypoxic. Exam and clinical presentation are consistent with acute heart failure exacerbation. Will empirically give a dose of Lasix now for his mild respiratory distress. Anticipate he will require inpatient admission. Will rule out cardiac etiology with EKG and troponin. Will check COVID swab. His lower extremity edema is at his baseline without any calf tenderness, doubt DVT. Will reassess. Reevaluation(s) Reevaluation #1: Labs showing no leukocytosis. Anemia baseline. Renal function at baseline. Given 40 mg of IV Lasix. His COVID swab turned out to be positive. He is fully vaccinated and boosted, last got a booster in the springtime cannot recall which brand. BNP only 71, which is likely falsely low in the setting of diastolic CHF. CXR reviewed - new right pleural effusion and bibasilar infiltrates vs atelectasis. Not COVID PNA. Procal is low, doubt bacterial pneumonia. Feel this is more CHF and volume overload. Will hold off on Decadron for now and defer to hospitalist. No other symptoms of COVID. Will call hospitalist for admission. MDM - SOB/Dyspnea Medical Records Attestation: I reviewed the patient's medical records. Lab Data Attestation: I reviewed the patient's lab results. Result diagrams: 04/21/22 09:41 04/21/22 09:40 Labs: Lab Results 04/21/22 04/21/22 04/21/22 Range/Units 09:40 09:40 09:40 WBC (4.8-10.8) X10*3/uL RBC (4.60-5.80) X10*6/uL Hgb (14.0-18.0) g/dl Hct (42.0-52.0) % MCV (80.0-98.0) fL MCH (27.0-33.0) pg MCHC (31.0-36.0) g/dl RDW (11.0-16.0) % Plt Count (160-400) X10*3/uL MPV (9.4-12.4) fL Immature Gran % (Auto) (0.0-0.4) % Neut % (Auto) (45-73) % Lymph % (Auto) (20-40) % [place] % (Auto) (2-11) % Eos % (Auto) (0-4) % Baso % (Auto) (0-2) % Lymph # (Auto) (1.2-4.9) X10*3/uL Win[place] # (Auto) (0.1-1.2) X10*3/uL Eos # (Auto) (0.0-0.4) X10*3/uL Baso # (Auto) (0.0-0.2) X10*3/uL Abs Immat Gran (auto) (0.00-0.03) X10*3/uL Absolute Neuts (auto) (2.0-8.3) x10*3/uL Absolute Nucleated RBC (0.0-0.012) X10*3/uL Nucleated RBC % (auto) (0.0-0.2) /100WBC PT 13.7 H (10.0-13.1) SEC INR 1.2 H (0.9-1.1) APTT 31.1 (26.0-36.4) SEC Sodium 137 (135-145) mmol/L Potassium 4.8 (3.3-5.1) mmol/L Chloride 102 (96-108) mmol/L Carbon Dioxide 25 (22-29) mmol/L Anion Gap 15 (12-20) BUN 21 H D (9-16) mg/dL Creatinine 1.17 (0.5-1.4) mg/dL Estim Creat Clear Calc 56.8 Estimated GFR 59 Random Glucose 260 H D (60-115) mg/dL Lactic Acid 2.1 H* (0.5-2.0) mmol/L Calcium 8.9 (8.4-10.2) mg/dL Magnesium 1.8 (1.6-2.6) mg/dL Total Bilirubin 0.5 (0.0-1.0) mg/dL Direct Bilirubin 0.2 (0.0-0.5) mg/dL AST 21 (5-37) U/L ALT 32 (0-40) U/L Alkaline Phosphatase 127 H (39-117) U/L Troponin I High Sens (<3.5-35.0) ng/L B-Natriuretic Peptide (<100) pg/mL Total Protein 6.3 L (6.5-8.0) g/dL Albumin 3.2 L (3.5-5.0) g/dL Procalcitonin ng/mL COVID-19 (AZAEL) (Negative) COVID-19 [facility] Influenza Type A (KRYSTAL) (Negative) Influenza Type B (KRYSTAL) (Negative) Influenza A & B Note 04/21/22 04/21/22 04/21/22 Range/Units 09:40 09:40 09:40 WBC (4.8-10.8) X10*3/uL RBC (4.60-5.80) X10*6/uL Hgb (14.0-18.0) g/dl Hct (42.0-52.0) % MCV (80.0-98.0) fL MCH (27.0-33.0) pg MCHC (31.0-36.0) g/dl RDW (11.0-16.0) % Plt Count (160-400) X10*3/uL MPV (9.4-12.4) fL Immature Gran % (Auto) (0.0-0.4) % Neut % (Auto) (45-73) % Lymph % (Auto) (20-40) % [place] % (Auto) (2-11) % Eos % (Auto) (0-4) % Baso % (Auto) (0-2) % Lymph # (Auto) (1.2-4.9) X10*3/uL [place] # (Auto) (0.1-1.2) X10*3/uL Eos # (Auto) (0.0-0.4) X10*3/uL Baso # (Auto) (0.0-0.2) X10*3/uL Abs Immat Gran (auto) (0.00-0.03) X10*3/uL Absolute Neuts (auto) (2.0-8.3) x10*3/uL Absolute Nucleated RBC (0.0-0.012) X10*3/uL Nucleated RBC % (auto) (0.0-0.2) /100WBC PT (10.0-13.1) SEC INR (0.9-1.1) APTT (26.0-36.4) SEC Sodium (135-145) mmol/L Potassium (3.3-5.1) mmol/L Chloride (96-108) mmol/L Carbon Dioxide (22-29) mmol/L Anion Gap (12-20) BUN (9-16) mg/dL Creatinine (0.5-1.4) mg/dL Estim Creat Clear Calc Estimated GFR Random Glucose (60-115) mg/dL Lactic Acid (0.5-2.0) mmol/L Calcium (8.4-10.2) mg/dL Magnesium (1.6-2.6) mg/dL Total Bilirubin (0.0-1.0) mg/dL Direct Bilirubin (0.0-0.5) mg/dL AST (5-37) U/L ALT (0-40) U/L Alkaline Phosphatase (39-117) U/L Troponin I High Sens 23.1 (<3.5-35.0) ng/L B-Natriuretic Peptide 78 (<100) pg/mL Total Protein (6.5-8.0) g/dL Albumin (3.5-5.0) g/dL Procalcitonin ng/mL COVID-19 (AZAEL) Positive A (Negative) COVID-19 Clin Com See Note Influenza Type A (KRYSTAL) Negative (Negative) Influenza Type B (KRYSTAL) Negative (Negative) Influenza A & B Note See Note 04/21/22 04/21/22 Range/Units 09:41 09:41 WBC 10.1 (4.8-10.8) X10*3/uL RBC 3.30 L (4.60-5.80) X10*6/uL Hgb 10.0 L (14.0-18.0) g/dl Hct 30.8 L (42.0-52.0) % MCV 93.3 (80.0-98.0) fL MCH 30.3 (27.0-33.0) pg MCHC 32.5 (31.0-36.0) g/dl RDW 14.4 (11.0-16.0) % Plt Count 424 H (160-400) X10*3/uL MPV 9.1 L (9.4-12.4) fL Immature Gran % (Auto) 0.7 H (0.0-0.4) % Neut % (Auto) 66.1 (45-73) % Lymph % (Auto) 15.2 L (20-40) % [place] % (Auto) 10.8 (2-11) % Eos % (Auto) 6.5 H (0-4) % Baso % (Auto) 0.7 (0-2) % Lymph # (Auto) 1.5 (1.2-4.9) X10*3/uL [place] # (Auto) 1.1 (0.1-1.2) X10*3/uL Eos # (Auto) 0.7 H (0.0-0.4) X10*3/uL Baso # (Auto) 0.1 (0.0-0.2) X10*3/uL Abs Immat Gran (auto) 0.07 H (0.00-0.03) X10*3/uL Absolute Neuts (auto) 6.7 (2.0-8.3) x10*3/uL Absolute Nucleated RBC 0.000 (0.0-0.012) X10*3/uL Nucleated RBC % (auto) 0.0 (0.0-0.2) /100WBC PT (10.0-13.1) SEC INR (0.9-1.1) APTT (26.0-36.4) SEC Sodium (135-145) mmol/L Potassium (3.3-5.1) mmol/L Chloride (96-108) mmol/L Carbon Dioxide (22-29) mmol/L Anion Gap (12-20) BUN (9-16) mg/dL Creatinine (0.5-1.4) mg/dL Estim Creat Clear Calc Estimated GFR Random Glucose (60-115) mg/dL Lactic Acid (0.5-2.0) mmol/L Calcium (8.4-10.2) mg/dL Magnesium (1.6-2.6) mg/dL Total Bilirubin (0.0-1.0) mg/dL Direct Bilirubin (0.0-0.5) mg/dL AST (5-37) U/L ALT (0-40) U/L Alkaline Phosphatase (39-117) U/L Troponin I High Sens (<3.5-35.0) ng/L B-Natriuretic Peptide (<100) pg/mL Total Protein (6.5-8.0) g/dL Albumin (3.5-5.0) g/dL Procalcitonin 0.04 ng/mL COVID-19 (AZAEL) (Negative) COVID-19 Clin Com Influenza Type A (KRYSTAL) (Negative) Influenza Type B (KRYSTAL) (Negative) Influenza A & B Note ECG Data Attestation: I personally reviewed and interpreted this ECG as follows: ECG interpretation date: 04/21/22 ECG interpretation time: 11:50 Prior ECG tracings: available for review Interpretation: normal sinus rhythm, HR 84 bpm, RBBB, bifascicular block, (old), No ST segment elevations or depressions Critical Care Time Critical Care Time Critical Care Time: Yes Total Critical Care Time: 36 Attestation: I have personally provided critical care time exclusive of time spent on separately billable procedures. Time includes review of lab data, radiology results, frequent bedside reassessments, and monitoring for potential decompensation. Intervention performed as documented. Discharge Plan Discharge Clinical Impression: COVID-19, Acute diastolic (congestive) heart failure, Pleural effusion on right Patient Disposition: Admitted As Inpatient
--- NOTE | 2022-04-21 09:02 | ECG_ITS ---
Test Reason : SOB Blood Pressure : / mmHG Vent. Rate : 084 BPM Atrial Rate : 084 BPM P-R Int : 166 ms QRS Dur : 132 ms QT Int : 386 ms P-R-T Axes : 034 -59 028 degrees QTc Int : 456 ms Normal sinus rhythm Right bundle branch block Left anterior fascicular block Bifascicular block Abnormal ECG When compared with ECG of 10-AUG-2021 16:43, Premature ventricular complexes are no longer Present Referred By: Salena Mello Electronically Signed By:DOMITILA HALL MD
--- OUTSIDE RECORDS SUMMARY | 2022-04-21 09:12 | XMS_ITS | Encounter Summary ---
:1935 Author Organization [facility] Address [address] [place] [id number] Support Name Relationship Address Phone BRIAN CHARLES Unavailable [address] [place] [address] BRIAN CHARLES Unavailable [address] [place] [address] BRIAN CHARLES Unavailable [address] [phone] [place] [address] Insurance Providers: All historical and current Section Date Range: From patient's date of to the date document was created.This section includes the names of all active insurance providers for the patient. Insurance Type of Plan Start of End of Group Member Insurance Policy P atient's Provider Coverage Name Policy Policy Number ID Provider's Stinson's Relationship Coverage Coverage Telephone Name to Policy Number Stinson ANTHEM MEDIGAP MEDEX Dec 29, [id number] [phone] Anamika WALSH PATIENT BCBS OF CT PLAN C 2001 3 SPE[place] ANTHEM MEDICARE MEDEX Dec 29, [id number] [phone] Anamika WALSH PATIENT BCBS OF CT SUPPLEMEN BRON 2001 3 SPE[place] E [place] Dec 29, [id number] [phone] Anamika GONZALES PATIENT SUPPLEMEN BRONZ [id number] [place] Dec 29, [id number] [phone] Anamika GONZALES PATIENT SUPPLEMEN BRONZ 2001 4 SPE[place] E BCBS OF MEDICARE PSUED May 31, [id number] [phone] Anamika GONZALES PATIENT [place] SUPPLEMEN O [id number] 3 SPE[place] HERMINIA MEDEX BRONZ E BLUE [place] MEDIGAP MEDEX May 31, [id number] [phone] WHEE LER,R PATIENT BLUE [facility] [place] EAST 1999 05 [id number] [place] SHIELD OF [place] MEDICARE MEDICARE PART October 29, PART B [id number] WHEELE R,R PATIENT (WNR) (M) B 2001 [id number] 2 [place] MEDICARE MEDICARE PART October 29, PART B [phone] WHEELE R,R PATIENT (WNR) (M) B 2001 [id number] [place] MEDICARE MEDICARE PART October 29, PART B [id number] WHEELE R,R PATIENT (WNR) (M) B 2001 [id number] [place] MEDICARE MEDICARE PART October 29, PART B [id number] WHEELE R,R PATIENT (WNR) (M) B 2001 [id number] 00 [place] MEDICARE MEDICARE PART October 29, PART B [id number] WHEELE R,R PATIENT (WNR) (M) B 2001 [id number] 00 [place] MEDICARE MEDICARE PART May 31, PART A [id number] [phone] WHEELE R,R PATIENT (WNR) (M) A 1999 RC08 2 [place] MEDICARE MEDICARE PART May 31, PART A [id number] WHEELE R,R PATIENT (WNR) (M) A 1999 [id number] 00 [place] MEDICARE MEDICARE PART May 31, PART A [id number] [id number] WHEELE R,R PATIENT (WNR) (M) A 1999 RC08 00 [place] MEDICARE MEDICARE PART May 31, PART A [id number] [phone] WHEELE R,R PATIENT (WNR) (M) A 1999 85A 00 [place] MEDICARE MEDICARE PART May 31, PART A [id number] [id number] WHEELE R,R PATIENT (WNR) (M) A 1999 RC08 SPE[place] Selected Encounter This section includes the information on record at [place] for the Encounter. Date/Time Encounter Type Encounter Description Reason Provider Source Oct 06, 2021 12:41 Outpatient Encounter TELEPHONE TRIAGE PM IHE Encounter Template Text not used by [facility] Plan of Treatment: Future Appointments (+ 6 months) and Future Tests (+/- 45 days) The Plan of Treatment section includes future care activities for the patient [facility] This section includes future appointments and future orders which are active, pending orscheduled.Future Appointments This section includes appointments that were scheduled to occur 6 months from the date of the Encounter, up to a maximum of 20 appointments. The data comes from all [place] treatment [facility]. Appointment Date/Time Appointment Type Appointment Facili ty Name Oct 26, 2021 01:30 PM AMBULATORY MEDICINE [facility] October 31, 2021 01:30 PM AM[facility]ULATORY MEDICINE [facility] November 24, 2021 09:00 AM [facility] Mar 14, 2022 08:30 AM AMBULATORY MEDICINE [place] Mar 14, 2022 09:[address] [facility] Mar 21, 2022 10:30 AM AMBULATORY - REHAB [facility] Mar 27, 2022 09:30 AM [facility] MEDICINE [facility] Social History: Smoking Status (Most current) and Tobacco Use (All prior to encounter date) This section includes the most current, and the historical, smoking and tobacco-related health factors from the [place] facility where the Encounter took place.Current Smoking Status This section includes the most current smoking, or tobacco-related health factor, from the [place] facility where the Encounter took place. Date/Time Current Smoking Status Comment Facility Jul 26, 2020 10:43 AM [place]-TOBACCO FORMER USER [facility] Tobacco Use History This section includes a history of the smoking, or tobacco- related health factors, that were collected on or before the date of the Encounter. The data comes from the [place] facility where the Encounter took place. Date/Time Smoking Status/Tobacco Use Comment [facility] Jul 26, 2020 10:43 [facility] Advance Directives: All historical and current Section Date Range: From patient's date of to the date document was created. This section includes ALL of a patient's completed or amended [place] Advance and Rescinded Directives. The entries below indicate that a directive exists for the patient, but an actual copy is not included with this document. The data comes from all [facility] facilities. Date Advance Directives Provider Source May 20, 2006 ADVANCE DIRECTIVE BAYLEE SHUKLA [place] Encounter Notes: All associated encounter notes This section contains the clinical notes associated to the Encounter. Date/Time Encounter Note(s) Provider Source Oct 06, 2021 12:41 PM TELEPHONE ENCOUNTER NOTE: TYE GONZALEZ CNTRL WSTRN LOCAL TITLE: VISN 1 [facility] MED RENEWAL [place] [facility] STANDARD TITLE: TELEPHONE ENCOUNTER NOTE DATE OF NOTE: OCT 06, 2021@12:41:23 ENTRY DATE: OCT 06, 2021@12:42:56 AUTHOR: TYE GONZALEZ EXP COSIGNER: URGENCY: STATUS: COMPLETED VISN 1 CCC MED RENEWAL Has ADDENDA The patient, MART WALSH ([id number] ) called the call center. The following identifiers were used to verify th is patient: . SSN. Contact Type of call: PHARMACY. Caller Response: ADM CALL RESOLVED Caller Area: [place] [facility] Provider Info: [facility] ([id number]) PACT: SO PACT 2 (Focus: Primary Care Only) Primary Care Provider: ELEUTERIO ORONA Customer Professional: CINDY BAER Clinical Associate: KARRI WRIGHT Tripe Finisher: ADAM MATA Clinical POC: Clinical Associate Desmond WRIGHT Administrative POC: Tripe Finisher ADAM MATA Author: TYE GONZALEZ Comments: Please renew and mail Imported Information: Medications ACTIVE: DOXAZOSIN MESYLATE 2MG TAB Prescription #:[id number] Prescribing Physician: TOBIAS MONROY (PHYSICIAN) on 06/01/2021 08:22 Frequency/Dosage: 2MG ORAL DAILY Evaluation/Management Code: HC PRO PHONE CALL 5- 10 MIN ([id number]). Starting at: 10/06/2021 @ 12:41:23 Ending at: 10/06/2021 @ 12:42:16 Length: 0 minutes. Chief Complaint: Not applicable to call. Class Code: Other specified counseling. Patient's Email Address: /selam/ TYE GONZALEZ Signed: 10/06/2021 12:42 Receipt Acknowledged By: * AWAITING SIGNATURE * ELEUTERIO ORONA 10/06/2021 14:11 /selam/ TANYA LUO RN-BC REGISTERED NURSE 10/06/2021 ADDENDUM STATUS: COMPLETED called and spoke to and he reports that he would like to get his isosorbide prescription that was prescribed by Dr Champagne, non [facility] PCP, next refill through the [place] pharmacy. [place] also requested multiple other refills that author was able to assist with for mail delivery . Author contacted Dr Champagne office at [phone] and requested copy of isosorbide script and last office visit note for PCP review. /es/ TANYA LUO RN-SHARON REGISTERED NURSE Signed: 10/06/2021 14:21
--- OUTSIDE RECORDS SUMMARY | 2022-04-21 09:12 | XMS_ITS | Encounter Summary ---
:1935 Author Organization [facility] Address [address] [place] [address] Support Name Relationship Address Phone BRIAN CHARLES Unavailable [address] [place] [address] BRIAN CHARLES Unavailable [address] [place] [address] BRIAN CHARLES Unavailable [phone] [place] [address] Insurance Providers: All historical and current Section [...] Number Stinson ANTHEM MEDIGAP MEDEX Dec 29, [id number] [phone] Anamika WALSH PATIENT BCBS OF CT PLAN C 2001 3 PSEED[place] ANTHEM MEDICARE MEDEX Dec 29, [id number] [phone] Anamika WALSH PATIENT BCBS OF CT SUPPLEMEN BRON 2001 3 SPE[place] BCBS [place] MED[place] Dec 29, [id number] [phone] Anamika GONZALES PATIENT SUPPLEMEN BRONZ 2001 4 SPE[place] Dec 29, [id number] [phone] Anamika GONZALES PATIENT SUPPLEMEN BRONZ 2001 4 SPEEDY [place] E BCBS OF MEDICARE PSUED May 31, [id number] [phone] Anamika GONZALES PATIENT MASS SUPPLEMEN O 1999 3 SPEEDY [place] MEDEX BRONZ E BLUE CROSS MEDIGAP MEDEX May 31 [id number] [phone] WHEE LER,R PATIENT BLUE [facility] [place] EAST 1999 05 [id number] 4 SPEEDY SHIELD [facility] MEDICARE MEDICARE PART October 29, PART B [id number] [phone] WHEELE R,R PATIENT (WNR) (M) B 2001 RC08 2 SPEEDY MEDICARE MEDICARE PART October 29, PART B [id number] [phone] WHEELE R,R PATIENT (WNR) (M) B 2001 85A 00 SPEEDY MEDICARE MEDICARE PART October 29, PART B [id number] [phone] WHEELE R,R PATIENT (WNR) (M) B 2001 RC08 00 SPEEDY MEDICARE MEDICARE PART October 29, PART B [id number] [phone] WHEELE R,R PATIENT (WNR) (M) B 2001 85A 00 SPEEDY MEDICARE MEDICARE PART October 29, PART B [id number] [phone] WHEELE R,R PATIENT (WNR) (M) B 2001 RC08 00 SPEEDY MEDICARE MEDICARE PART May 31, PART A [id number] [phone] WHEELE R,R PATIENT (WNR) (M) A 1999 RC08 2 SPEEDY MEDICARE MEDICARE PART May 31, PART A [id number] [id number] WHEELE R,R PATIENT (WNR) (M) A 1999 85A 00 SPEEDY MEDICARE MEDICARE PART May 31, PART A [id number] [phone] WHEELE R,R PATIENT (WNR) (M) A 1999 RC08 00 SPEEDY MEDICARE MEDICARE PART May 31, PART A [id number] [id number] WHEELE R,R PATIENT (WNR) (M) A 1999 85A 00 SPEEDY MEDICARE MEDICARE PART May 31, PART A [id number] [phone] WHEELE R,R PATIENT (WNR) (M) A 1999 RC08 00 SPEEDY Selected Encounter This section includes the information on record at [place] for the Encounter. Date/Time Encounter Type Encounter Description Reason Provider Source Oct 06, 2021 02:05 Outpatient Encounter PRIMARY CARE/MEDICINE PM IHE Encounter Template Text not used by [place] Plan of Treatment: Future Appointments (+ 6 months) and Future Tests (+/- 45 days) The Plan of Treatment section includes future care activities for the [facility] This section includes future appointments and future orders which are active, pending orscheduled.Future Appointments This section includes appointments that were scheduled to occur 6 months from the date of the Encounter, up to a maximum of 20 appointments. The data comes from all [place] treatment facilities. Appointment Date/Time Appointment Type Appointment Facili ty Name Oct 26, 2021 01:30 PM AMBULATORY MEDICINE [facility] October 31, 2021 01:30 PM AMBULATORY MEDICINE [facility] November 24, 2021 09:00 AM [facility] Mar 14, 2022 08:30 AM AMBULATORY MEDICINE [place] Mar 14, 2022 09:00 AM AMBULATORY [facility] Mar 21, 2022 10:30 AM [facility] Mar 27, 2022 09:30 AM [facility] MEDICINE [facility] Social History: Smoking Status (Most current) and Tobacco Use (All prior to encounter date) This section includes the most current, and the historical, smoking and tobacco-related health factors from the [place] facility where the Encounter took place.Current Smoking Status This section includes the most current smoking, or tobacco-related health factor, from the [place] facility where the Encounter took place. Date/Time Current Smoking Status Comment Facility Jul 26, 2020 10:43 AM [place]-TOBACCO FORMER USER [facility] Tobacco Use History This section includes a history of the smoking, or tobacco- related health factors, that were collected on or before the date of the Encounter. The data comes from the [place] facility where the Encounter took place. Date/Time Smoking Status/Tobacco Use Comment [facility] Jul 26, 2020 10:43 AM [facility] Advance Directives: All historical and current Section Date Range: From patient's date of to the date document was created. This section includes ALL of a patient's completed or amended [place] Advance and Rescinded Directives. The entries below indicate that a directive exists for the patient, but an actual copy is not included with this document. The data comes from all [place] facilities. Date Advance Directives Provider Source May 20, 2006 ADVANCE DIRECTIVE SHUKLABAYLEE Encounter Notes: All associated encounter notes This section contains the clinical notes associated to the Encounter. Date/Time Encounter Note(s) Provider Source Oct 06, 2021 02:06 PM MEDICATION MGT NOTE: CINDY BAER [facility] TITLE: OUTPATIENT MEDICATION REQUEST STANDARD TITLE: MEDICATION MGT NOTE DATE OF NOTE: OCT 06, 2021@14:06 ENTRY DATE: OCT 06, 2021@14:06:36 AUTHOR: CINDY BAER EXP COSIGNER: URGENCY: STATUS: COMPLETED Please refill for mail DOXAZOSIN (2ND LINE ALPHA KARLEE) TAB,ORAL 2MG TAKE ONE TABLET BY MOUTH ONCE DAILY Quantity: 30 Refills: / CARMINE LUON RN-BC REGISTERED NURSE Signed: 10/06/2021 14:10 Receipt Acknowledged By: * AWAITING SIGNATURE * ELEUTERIO ORONA
--- OUTSIDE RECORDS SUMMARY | 2022-04-21 09:12 | XMS_ITS | Encounter Summary ---
:1935 Author Organization [facility] Address [address] [place] [address] Support Name Relationship Address Phone BRIAN CHARLES Unavailable [address] [place] [address] BRIAN CHARLES Unavailable [address] [place] [address] BRIAN CHARLES Unavailable [phone] [place] [address] Insurance Providers: All historical and current Section [...] Number [place]inson ANTHEM MEDIGAP MEDEX Dec 29, [id number] [phone] Anamika WALSH PATIENT BCBS OF CT PLAN C 2001 3 SPEEDY ANTHEM MEDICARE MEDEX Dec 29, [id number] [phone] Anamika WALSH PATIENT BCBS OF CT SUPPLEMEN BRON 2001 3 [place] BC[place] MED[place] Dec 29, [id number] [phone] Anamika GONZALES PATIENT SUPPLEMEN BRONZ 2001 4 [place] MED[place] Dec 29, [id number] [phone] Anamika GONZALES PATIENT SUPPLEMEN BRONZ 2001 4 SPEEDY [place] E BCBS OF MEDICARE PSUED May 31, [id number] [phone] Anamika GONZALES PATIENT MASS SUPPLEMEN O 1999 3 SPEEDY [place] MEDEX BRONZ E BLUE CROSS MEDIGAP MEDEX May 31 [id number] [phone] WHEE LER,R PATIENT BLUE [facility] [place] EAST 1999 05 [id number] 4 SPEEDY SHIELD [facility] MEDICARE MEDICARE PART October 29, PART B [id number] [phone] WHEELE R,R PATIENT (WNR) (M) B 2001 RC08 2 SPEEDY MEDICARE MEDICARE PART October 29, PART B [id number] [phone] WHEELE R,R PATIENT (WNR) (M) B 2001 85A 00 SPEEDY MEDICARE MEDICARE PART October 29, PART B [id number] [phone] WHEELE R,R PATIENT (WNR) (M) B 2001 RC08 00 SPEEDY MEDICARE MEDICARE PART October 29, PART B [id number] [phone] WHEELE R,R PATIENT (WNR) (M) B 2001 85A 00 SPEEDY MEDICARE MEDICARE PART October 29, PART B [id number] [phone] WHEELE R,R PATIENT (WNR) (M) B 2001 RC08 00 SPEEDY MEDICARE MEDICARE PART May 31, PART A [id number] [phone] WHEELE R,R PATIENT (WNR) (M) A 1999 RC08 2 SPEEDY MEDICARE MEDICARE PART May 31, PART A [id number] [phone] WHEELE R,R PATIENT (WNR) (M) A 1999 85A 00 SPEEDY MEDICARE MEDICARE PART May 31, PART A [id number] [phone] WHEELE R,R PATIENT (WNR) (M) A 1999 RC08 00 SPEEDY MEDICARE MEDICARE PART May 31, PART A [id number] [phone] WHEELE R,R PATIENT (WNR) (M) A 1999 85A 00 SPEEDY MEDICARE MEDICARE PART May 31, PART A [id number] [phone] WHEELE R,R PATIENT (WNR) (M) A 1999 RC08 00 SPEEDY Selected Encounter This section includes the information on record at [place] for the Encounter. Date/Time Encounter Type Encounter Description Reason Provider Source Oct 06, 2021 02:22 Outpatient Encounter PRIMARY CARE/MEDICINE PM IHE Encounter Template Text not used by [place] Plan of Treatment: Future Appointments (+ 6 months) and Future Tests (+/- 45 days) The Plan of Treatment section includes future care activities for the [facility] [place] [facility] This section includes future appointments and future orders which are active, pending orscheduled.Future Appointments This section includes appointments that were scheduled to occur 6 months from the date of the Encounter, up to a maximum of 20 appointments. The data comes from all [place] treatment facilities. Appointment Date/Time Appointment Type Appointment Facili ty Name Oct 26, 2021 01:30 PM AMBULATORY MEDICINE [facility] October 31, 2021 01:30 PM AMBULATORY MEDICINE [facility] November 24, 2021 09:00 AM [facility] Mar 14, 2022 08:30 AM AMBULATORY MEDICINE [place] Mar 14, 2022 09:00 AM AMBULATORY [facility] Mar 21, 2022 10:30 AM [facility] Mar 27, 2022 09:30 AM [facility] MEDICINE [facility] Social History: Smoking Status (Most current) and Tobacco Use (All prior to encounter date) This section includes the most current, and the historical, smoking and tobacco-related health factors from the [place] facility where the Encounter took place.Current Smoking Status This section includes the most current smoking, or tobacco-related health factor, from the [place] facility where the Encounter took place. Date/Time Current Smoking Status Comment Facility Jul 26, 2020 10:43 AM [place]-TOBACCO FORMER USER [facility] Tobacco Use History This section includes a history of the smoking, or tobacco- related health factors, that were collected on or before the date of the Encounter. The data comes from the [place] facility where the Encounter took place. Date/Time Smoking Status/Tobacco Use Comment [facility] Jul 26, 2020 10:43 [facility] Advance Directives: All historical and current Section Date Range: From patient's date of to the date document was created. This section includes ALL of a patient's completed or amended [place] Advance and Rescinded Directives. The entries below indicate that a directive exists for the patient, but an actual copy is not included with this document. The data comes from all [place] facilities. Date Advance Directives Provider Source May 20, 2006 ADVANCE DIRECTIVE BAYLEE SHUKLA Encounter Notes: All associated encounter notes This section contains the clinical notes associated to the Encounter. Date/Time Encounter Note(s) Provider Source Oct 06, 2021 02:22 PM ADMINISTRATIVE NOTE: CINDY BAER [facility] LOCAL TITLE: ADMINISTRATIVE NOTE STANDARD TITLE: ADMINISTRATIVE NOTE DATE OF NOTE: OCT 06, 2021@14:22 ENTRY DATE: OCT 06, 2021@14:23:02 AUTHOR: CINDY BAER EXP COSIGNER: URGENCY: STATUS: COMPLETED Please assist with scheduling [place] from curre nt RTC order in place. /selam/ TANYA LUO RN-BC REGISTERED NURSE Signed: 10/06/2021 14:23 Receipt Acknowledged By: * AWAITING SIGNATURE * ADAM MATA
--- OUTSIDE RECORDS SUMMARY | 2022-04-21 09:12 | XMS_ITS | Continuity of Care Document ---
:1935 Author Organization [facility] Care Team Providers Name Role Phone [facility] Unavailable Unavailable Problems Combined list of problems from Department of Defense and Veterans Affairs facilities. It does not include entries that were removed or entered in error. 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 WSTRN (ICD-9-CM 593.9) Entered By: SANDRITA ARGUELLES [facility] ID MALISSA Comment: Small cyst on small stones notes on CT 09/05 Ida Diagnosis: ICD-10-CM Active Diagnosis J[place] J45.998 Other CLINIC asthmawith Provider (631GE) Comments: Other Asthma Diagnosis: ICD-10-CM Active Diagnosis [facility] S32.020S [place] WSTRN compression fracture [place] of second lum HCS vertebra, sequelawith Provider Comments: Wedge Compression Fracture of second Lumbar Vertebra, Sequela Diagnosis: ICD-10-CM Active Diagnosis [place] [facility] M54.50 Low back WSTR N pain, [place] unspecifiedwith [facility] Provider Comments: Low back pain, unspecified Diagnosis: ICD-10-CM Active Diagnosis [place] [facility] S32.030D [place] WSTRN comprsn fx third lum [place] vert, subs for fx w HCS routn healwith Provider Comments: Wedge Compression Fracture of third Lumbar Vertebra, Subsequent Encounter for Fracture with Routine Healing Diagnosis: ICD-10-CM Active Diagnosis [place] Z23 Encounter for immunizationwith Provider Comments: Encounter for immunization (ICD-10-CM Z23.) Diagnosis: ICD-10-CM Active Diagnosis [place] D64.9 Anemia, unspecifiedwith Provider Comments: Anemia, unspecified (ICD-10-CM D64.9) Diagnosis: ICD-10-CM Active Diagnosis [place] Z23 Encounter for immunizationwith Provider Comments: Encounter for Immunization Diagnosis: ICD-10-CM Active Diagnosis [place] E11.9 Type 2 diabetes mellitus without complicationswith Provider Comments: Type 2 Diabetes Mellitus without Complications Diagnosis: ICD-10-CM Active Diagnosis [place] CN[place] Z71.89 Other WSTRN specified [place] counselingwith HCS Provider Comments: Other specified counseling Diagnosis: ICD-10-CM Active Diagnosis [place] 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 Medications provided include 1) outpatient medications from the last 15 months, and 2) patient-reported medications. Medication Details Route Status Patient Prescription Prescription Last Ordering Order Source Instructions Expires Number Dispense Provider Date Date ALBUTEROL INHALE 1 INHALA 12/28/2021 [id number] CRISTIANE YJUAN FRANCISCO 12/27/ [place] 100MCG/IPRA PUFF BY TION 2 EL J 2020 CNTRL TROPIUM BR MOUTH ORAL WSTRN 20MCG/SPRAY EVERY 6 [place] INHALER,ORA HOURS SETS L,4GM NEEDED HCS FOR BREATHIN G ASPIRIN TAKE ONE ORAL ACTIVE GONZALEZ,D INGF 81MG TAB,EC TABLET GALILEO LEONARDO 2006 IEL D BY MOUTH DAILY ATORVASTATI TAKE ORAL ACTIVE 10/10/2022 [id number] DAVITIA NI N CA 80MG ONE-HALF 2 ,2021 CNTRL TAB TABLET WSTRN BY MOUTH [place] ONCE SETS DAILY HCS FOR CHOLESTE ROL ATORVASTATI TAKE ORAL DISCONT 06/22/2022 [id number] MONROY,DA NI N CA 80MG ONE-HALF INUED 2 EL J 2020 CNTRL TAB TABLET WSTRN BY MOUTH [place] ONCE SETS DAILY HCS FOR CHOLESTE ROL BUPRENORPHI APPLY 1 TOPICA ACTIVE 05/05/2022 [id number] KUP FERSCH NE 20MCG/HR PATCH TO L 2 MID,DION 2021 CN TRL PATCH SKIN PATCH B WSTRN EVERY 7 [place] DAYS SETS (REMOVE HCS PATCH BEFORE APPLYING A NEW PATCH) BUPRENORPHI APPLY 1 TOPICA DISCONT 04/26/2022 [id number] KU PFERSCH NE 5MCG/HR PATCH TO L INUED 2 MID,DION 2021 CNT RL PATCH SKIN PATCH B WSTRN EVERY 7 [place] DAYS SETS (REMOVE HCS PATCH BEFORE APPLYING A NEW PATCH) CLOTRIMAZOL APPLY AFFECT 11/05/2021 [id number] PE TRAZZUO 11/04/ LEANAINGT E 1% SMALL ED 1 SILVINO CANO 2020 ON CREAM,TOP AMOUNT AREA TO AFFECTED AREA EVERY MORNING FOR FUNGAL INFECTIO N DILTIAZEM TAKE ONE ORAL ACTIVE 10/20/2022 [id number] DAVITI ANI VA (EQV-TIAZAC CAPSULE ,2021 CNTR L AB4) 240MG BY MOUTH WSTRN 24HR CAP ONCE [place] DAILY SETS HCS DILTIAZEM TAKE ONE ORAL DISCONT 07/22/2021 [id number] ELIANA JUAN FRANCISCO (EQV-TIAZAC CAPSULE INUED 1 EL J 2020 CNTRL AB4) 240MG BY MOUTH WSTRN 24HR CAP ONCE [place] DAILY SETS HCS DOXAZOSIN TAKE ONE ORAL ACTIVE 10/10/2022 [id number] DAVITI ANI 10/09/ [facility] MESYLATE TABLET 2 ,2021 CNTRL 2MG TAB BY MOUTH WSTRN ONCE [place] DAILY SETS HCS DOXAZOSIN TAKE ONE ORAL DISCONT 06/02/2022 [id number] Song MONROY ANI 06/01/ [facility] MESYLATE TABLET INUED 2 EL J 2020 CNTRL 2MG TAB BY MOUTH WSTRN ONCE [place] DAILY SETS HCS FUROSEMIDE TAKE ONE ORAL ACTIVE 10/10/2022 [id number] BRITTANI IANI 10/09/ [facility] 20MG TAB TABLET 2 ,2021 CNTRL BY MOUTH WSTRN EVERY [place] DAY TO SETS REMOVE HCS FLUID/CO NTROL BLOOD PRESSURE FUROSEMIDE TAKE ONE ORAL DISCONT 04/06/2022 [id number] L JUAN FRANCISCO FARIA springF 20MG TAB TABLET INUED 2 EL J 2020 IELD BY MOUTH EVERY DAY TO REMOVE FLUID/CO NTROL BLOOD PRESSURE LIDOCAINE APPLY 1 TOPICA ACTIVE 03/15/2023 [id number] Song MADRID 5% PATCH PATCH LLY 2 AVID A 2021 IELD TOPICALL Y ONCE DAILY NEEDED (LEAVE PATCH ON FOR 12 HOURS, THEN REMOVE PATCH) LORATADINE TAKE ONE ORAL DISCONT 12/16/2021 [id number] P ASTRANA, springF 10MG TAB TABLET INUE 1 APOLINARI 2020 IELD BY MOUTH O ONCE DAILY NEEDED FOR ALLERGY LORATADINE TAKE ONE ORAL 04/06/2022 [id number] L JUAN FRANCISCO FARIA springF 10MG TAB TABLET 2 EL J 2020 IELD BY MOUTH ONCE DAILY NEEDED FOR ALLERGY METFORMIN TAKE ONE ORAL DISCONT 07/14/2021 [id number] JUAN FRANCISCO MONROY 07/24/ [facility] HCL 500MG TABLET INUE 1 J 2020 CNTRL TAB BY MOUTH WSTRN TWICE [place] DAILY SETS FOR HCS DIABETES METFORMIN TAKE ONE ORAL 04/06/2022 [id number] JUAN FRANCISCO MONROY HCL 500MG TABLET 2 EL J 2020 IELD TAB BY MOUTH TWICE DAILY FOR DIABETES METOPROLOL TAKE ONE ORAL ACTIVE 10/10/2022 [id number] BRITTANI IANI 12/25/ [facility] TARTRATE TABLET 2021 CNTRL 25MG TAB BY MOUTH WSTRN TWICE [place] DAILY SETS FOR HCS BLOOD PRESSURE /HEART METOPROLOL TAKE ONE ORAL DISCONT 06/22/2022 [id number] JUAN FRANCISCO MONROY 06/21/ [facility] TARTRATE TABLET INUED 2 J 2020 CNTRL 25MG TAB BY MOUTH WSTRN TWICE [place] DAILY SETS FOR HCS BLOOD PRESSURE /HEART MOMETASONE INHALE 2 INHALA ACTIVE 11/25/2022 [id number] DA VITIANI FUROATE PUFFS BY TION 2021 IELD 220MCG/INHL MOUTH ORAL INHL,ORAL,6 TWICE 0 DAILY --RINSE MOUTH AFTER EACH USE MOMETASONE INHALE 2 INHALA DISCONT 01/19/2022 [id number] JUAN FRANCISCO LEIGH 01/19/ FUROATE PUFFS BY TION INUED 2 J 2020 CNTRL 220MCG/INHL MOUTH ORAL WSTRN INHL,ORAL,6 TWICE [place] 0 DAILY SETS --RINSE HCS MOUTH AFTER EACH USE MULTIVITAMI TAKE ONE ORAL ACTIVE GONZALEZ,D NS TABLET GALILEO LEONARDO 2005 IELD W/MINERALS BY MOUTH TAB DAILY MUPIROCIN APPLY AFFECT 11/05/2021 [id number] PETRAZZ UO 11/04/ [place] 2% OINT,TOP SMALL ED 1 SILVINO CANO 2020 ON AMOUNT AREA TO AFFECTED AREA AT BEDTIME OMEPRAZOLE TAKE ONE ORAL ACTIVE 10/20/2022 [id number] BRITTANI IANI 11/30/ [facility] 20MG CAP,EC CAPSULE 2021 CNTR L BY MOUTH WSTRN DAILY [place] SETS HCS OMEPRAZOLE TAKE ONE ORAL DISCONT 12/06/2021 [id number] BONNIE VANEGAS 20MG CAP,EC CAPSULE INUED 2 HN 2020 IELD BY MOUTH DAILY OTHER NEXIUM ACTIVE GONZALEZD springF CAP/TAB 40MG po GALILEO LEONARDO 2006 IELD DAILY OXYCODONE TAKE 1 ORAL DISCONT 04/13/2022 [id number] MADRID, D HCL TABLET INUED 2 AVID Antonella 2021 IELD 5MG/ACETAMI BY MOUTH NOPHEN TWICE 325MG TAB DAILY NEEDED FOR PAIN STOP TRAMADOL WHILE TAKING PERCOCET PSYLLIUM TAKE 2 ORAL 08/10/2021 [id number] JUAN FRANCISCO MONROY 08/09/ SUGAR FREE PACKETS 2 EL J 2020 CNTRL INSTANT MIX BY MOUTH WSTRN PWDR,PKT ONCE [place] DAILY SETS (MIX HCS WITH AT LEAST 8OZ. OF WATER OR OTHER FLUID) PSYLLIUM TAKE 2 ORAL ACTIVE 10/20/2022 [id number] DAVITIANI [facility] SUGAR FREE TEASPOON 2 ,2021 CNTR L PWDR,ORAL FULS BY WSTRN MOUTH [place] ONCE SETS DAILY HCS NEEDED (MIX WITH AT LEAST 8OZ. OF WATER OR OTHER FLUID) SIMVASTATIN TAKE ORAL HOLD 06/08/2022 [id number] JUDY MONROY I 10/19/ [place] 40MG TAB ONE-HALF 2 EL J 2021 IELD TABLET BY MOUTH AT BEDTIME SIMVASTATIN TAKE ORAL DISCONT 07/14/2021 [id number] Song MONROY ANI 08/06/ [facility] 40MG TAB ONE-HALF INUE 1 J 2020 CNTRL TABLET WSTRN BY MOUTH [place] AT SETS BEDTIME HCS TRAMADOL TAKE ONE ORAL DISCONT 11/18/2021 [id number] DAVITIA NI 10/25/ [facility] HCL 50MG TABLET INUED 2 ,2021 CNTRL TAB BY MOUTH WSTRN EVERY 12 [place] HOURS SETS NEEDED HCS TRAMADOL TAKE ONE ORAL DISCONT 03/31/2021 [id number] Song MONROY ANI 09/28/ [place] HCL 50MG TABLET INUE 1 EL J 2020 IELD TAB BY MOUTH EVERY 12 HOURS NEEDED TRAMADOL TAKE ONE ORAL 03/27/2022 [id number] CRYSTAL S, HCL 50MG TABLET 2 [facility] J 2021 IELD TAB BY MOUTH TWICE DAILY TRAMADOL TAKE ONE ORAL 12/24/2021 [id number] DAVITI ANI springF HCL 50MG TABLET 2 ,2021 IELD TAB BY MOUTH EVERY 12 HOURS NEEDED TRAMADOL TAKE ONE ORAL 10/05/2021 [id number] Song MONROY ANI springF HCL 50MG TABLET 2 [facility] 2020 IELD TAB BY MOUTH EVERY 12 HOURS NEEDED VALSARTAN TAKE ONE ORAL ACTIVE 10/10/2022 [id number] DAVITI ANI 12/25/ [place] 320MG TAB TABLET 2 ,2021 CNTRL BY MOUTH WSTRN ONCE [place] DAILY SETS *THIS IS HCS A HIGHER DOSE* VALSARTAN TAKE ONE ORAL DISCONT 06/08/2022 [id number] Antonella MARQUEZ NNRaquel springF 320MG TAB TABLET INUED 2 FELECIA 2020 IELD BY MOUTH ONCE DAILY *THIS IS A HIGHER DOSE* VALSARTAN TAKE ONE ORAL DISCONT 09/26/2021 [id number] JUAN FRANCISCO MONROY 320MG TAB TABLET INUED 1 [facility] 2020 IELD BY MOUTH (EDIT) DAILY *THIS IS A HIGHER DOSE* ZAFIRLUKAST TAKE ONE ORAL ACTIVE 10/10/2022 [id number] D AVITIANI VA 20MG TAB TABLET 2 ,2021 CNTRL BY MOUTH WSTRN TWICE [place] DAILY SETS HCS ZAFIRLUKAST TAKE ONE ORAL DISCONT 06/08/2022 [id number] JUAN FRANCISCO MONROY springF 20MG TAB TABLET INUED 2 [facility] 2020 IELD BY MOUTH TWICE DAILY ZAFIRLUKAST TAKE ONE ORAL DISCONT 07/14/2021 [id number] JUAN FRANCISCO MONROY 07/18/ [place] 20MG TAB TABLET INUE 1 J 2020 CNTRL BY MOUTH WSTRN TWICE [place] DAILY SETS HCS Allergies, Adverse Reactions, Alerts Combined list of allergies from Department of Defense and Veterans Affairs facilities. It does not include entries that were removed or entered in error. Substance Category Reaction Severity Reaction Status Date Comments S ource type Reported FELODIPINE Propensity Edema Propensity active [facility] to adverse to adverse 7 WS TRN reactions reactions [place] to drug to drug TS HCS (finding) (finding) LISINOPRIL Propensity Cough Propensity active [facility] to adverse to adverse 7 WS TRN reactions reactions [place] to drug to drug TS HCS (finding) (finding) Immunizations Combined list of available immunizations from the Department of Defense and Veterans Affairs facilities. Immunization Series Date Administered Site Reaction Lot CVX Drug St atus Comments Source Given By Number Code Harvest Supervisor INFLUENZA complet S [place] VACCINE, 2021 ed IELD QUADRIVALENT, ADJUVANTED ZOSTER 2 complet SPRI NGF RECOMBINANT 2021 ed IE LD ZOSTER 1 complet SPR[place] NGF RECOMBINANT 2021 ed IE LD COVID-19 4 complet MOD; SP RINGF (MODERNA), 2021 ed [id number]; IELD MRNA, LNP-S, 02 PF, 100 2 MCG/0.5ML DOSE OR 50 MCG/0.25ML DOSE COVID-19 3 complet MOD; SP RINGF (MODERNA), 2020 ed [id number]; IELD MRNA, LNP-S, 02 PF, 100 MCG 2 OR 50 MCG DOSE INFLUENZA, complet [facility] UNSPECIFIED 2020 ed CN TRL FORMULATION WS TRN [place] SETS HCS COVID-19 1 complet MOD; SP RINGF (MODERNA), 2020 ed [id number]; IELD MRNA, LNP-S, 02 PF, 100 1 MCG/0.5 ML DOSE INFLUENZA, complet [place] UNSPECIFIED 2019 ed CN TRL FORMULATION WS TRN [place] [facility] HCS INFLUENZA, complet [facility] SEASONAL, 2018 ed CNTR L INJECTABLE WST RN [place] [facility] HCS INFLUENZA, complet [facility] SEASONAL, 2017 ed CNTR L INJECTABLE WST RN [place] [facility] H[facility] FLU,3 YRS complet Site: S [place] (HISTORICAL) 2016 ed Left I ELD Deltoid FLU,3 YRS complet [place] [facility] (HISTORICAL) 2015 ed Hospita [facility] CNTRL MA WSTRN [place] [facility] HCS ZOSTER complet Proximal S ÁNGEL (SHINGLES) 2015 ed Left Arm IELD (HISTORICAL) FLU,3 YRS complet Site: [place] NEAL (HISTORICAL) 2015 ed Left I ELD Deltoid PNEUMOCOCCAL complet [place] CONJUGATE PCV 2016 ed IELD 13 FLU,3 YRS complet Site: S ÁNGEL (HISTORICAL) 2013 ed Left I ELD Deltoid FLU,3 YRS complet Site: S ÁNGEL (HISTORICAL) 2012 ed Left I ELD Deltoid FLU,3 YRS complet Site: [place] NEAL (HISTORICAL) 2012 ed Left I ELD Deltoid DTAP, complet Site: [place] UNSPECIFIED 2012 ed Left IE LD FORMULATION Deltoid FLU,3 YRS complet Site: S ÁNGEL (HISTORICAL) 2010 ed Left I ELD Deltoid TD(ADULT) complet V A UNSPECIFIED 2010 ed CN TRL FORMULATION WS TRN [place] [facility] HCS FLU,3 YRS complet Site: S ÁNGEL (HISTORICAL) 2010 ed Right I ELD Deltoid FLU,3 YRS complet Site: [place] NEAL (HISTORICAL) 2009 ed Right I ELD Deltoid NOVEL complet [employer] SP RINGF INFLUENZA-H1N 2009 ed IELD 1-09, ALL FORMULATIONS PNEUMOCOCCAL, complet [place] UNSPECIFIED 2009 ed IE LD FORMULATION FLU,3 YRS complet S PRINGF (HISTORICAL) 2007 ed I ELD FLU,3 YRS complet Site: S ÁNGEL (HISTORICAL) 2006 ed Left I ELD Deltoid FLU,3 YRS complet S PRINGF (HISTORICAL) 2005 ed I ELD FLU,3 YRS 05/18/ LAI PENA complet [place] (HISTORICAL) 2004 ed I ELD FLU,3 YRS complet S [place] (HISTORICAL) 2003 ed I ELD Results Combined list of recent chemistry, hematology and other laboratory results from Department of Defense and Veterans Affairs, ranging from 15 months to all on record, depending upon the facility. Order Results Value Reference Date Interpretation Specimen Commen ts Source Name Range TRANSFERR TRANSFERRIN 175 200 - 360 04/13 L Specimen Type: SERUM [place] IN, SERUM [MASS/VOLUM No comment entered. LD E] IN SERUM Ordering Pr ovider: ELEUTERIO ORONA OR PLASMA Report Rele ed Date/Time: November 24, 2021 10:36 AM Reporting Lab: [place] [facility] [facility] [address] [facility] [facility] [address] Performing Lab: [facility] [address] [facility] [facility] [address] HEMOGLOBI HEMOGLOBIN 6.6 4.0 - 5.6 04/13 H Specimen Type: BLOOD [place] N A1C A1C/HEMOGLO /2021 Comment: Va lues obtained from A1C measurements can vary. For atypical A1C assays, a reported value of 7.0 could actually be between 6.72 and 7.28 if measured by a reference method. A reported value of LD PANEL BIN.TOTAL 9.0 could actu ally be between 8.73 and 9.27. Ref: http://www.ngsp.org/CAPdata.asp IN BLOOD BY Ordering Pr ovider: ELEUTERIO ORONA HPLC Report Released Date/Time: November 24, 2021 09:54 AM Reporting Lab: [facility] [address] [facility] [facility] [address] Performing Lab: [facility] [address] [facility] [facility] [address] LIPID CHOLESTEROL 104 7 - 199 04/13 Specimen Typ e: SERUM [place] PANEL [MASS/ No comment e ntered. LD FASTING E] IN SERUM Ordering Pr ovider: ELEUTERIO ORONA OR PLASMA Report Rele ed Date/Time: November 24, 2021 09:54 AM Reporting Lab: [facility] [place] [facility] [address] [facility] [address] Performing Lab: [facility] [address] [facility] [address] LIPID TRIGLYCERID 97 0 - 150 04/13 Specimen Typ e: SERUM [place] PANEL E /2021 No comment enter ed. LD FASTING [MASS/VOLUM Ordering Pr ovider: ELEUTERIO ORONA E] IN SERUM Report Rele ased Date/Time: November 24, 2021 09:54 AM OR PLASMA Reporting Lab : [address] [address] Performing Lab: [address] [address] LIPID CHOLESTEROL 59 0 - 129 10/ Specimen Typ e: SERUM [place] PANEL IN LDL /2021 No comment enter ed. LD FASTING [MASS/VOLUM Ordering Pr ovider: ELEUTERIO ORONA E] IN SERUM Report Rele ased Date/Time: November 24, 2021 09:54 AM OR PLASMA Reporting Lab : [facility] BY [address] [place] [phone] CALCULATION Performing Lab: [address] [address] LIPID CHOLESTEROL 4.0 04/13 Specimen Typ e: SERUM [place] PANEL .TOTAL/CHOL /2021 No comment e ntered. LD FASTING ESTEROL IN Ordering Pro vider: ELEUTERIO ORONA HDL [MASS Report Releas ed Date/Time: November 24, 2021 09:54 AM RATIO] IN Reporting Lab : [facility] SERUM OR [address] [place] [address] PLASMA Performing Lab: [address] [address] LIPID CHOLESTEROL 26 40 - 60 10/14 L Specimen Typ e: SERUM [place] PANEL IN HDL /2021 No comment enter ed. LD FASTING [MASS/VOLUM Ordering Pr ovider: ELEUTERIO ORONA] IN SERUM Report Rele ased Date/Time: November 24, 2021 09:54 AM OR PLASMA Reporting Lab : [address] [address] Performing Lab: [address] [address] TSH THYROTROPIN 1.43 0.35 - 04/13 Specimen Typ e: SERUM [place] [UNITS/VOLU 5.00 No comment e ntered. LD ME] IN Ordering Provid er: ELEUTERIO ORONA SERUM OR Report Release d Date/Time: November 24, 2021 09:54 AM PLASMA Reporting Lab: [address] [address] Performing Lab: [address] [address] BASIC UREA 28 7 - 25 10/14 H Specimen Type: S THU [place] METABOLIC NITROGEN /2021 No comment en tered. LD PANEL [MASS/VOLUM Ordering Pr ovider: ELEUTERIO ORONA (fasting) E] IN SERUM Report Re leased Date/Time: November 24, 2021 09:54 AM OR PLASMA Reporting Lab : [address] [address] Performing Lab: [address] [address] BASIC GLUCOSE 152 65 - 100 10/14 H Specimen Type: SERUM [place] METABOLIC [MASS/VOLUM /2021 No comment entered. LD PANEL E] IN SERUM Ordering Pr ovider: ELEUTERIO ORONA (fasting) OR PLASMA Report Rele ased Date/Time: November 24, 2021 09:54 AM Reporting Lab: [address] [address] Performing Lab: [address] [address] BASIC SODIUM 140 135 - 145 10/14 Specimen Type: SERUM [place] METABOLIC [MOLES/VOLU /2021 No comment entered. LD PANEL ME] IN Ordering Provid er: ELEUTERIO ORONA (fasting) SERUM OR Report Relea sed Date/Time: November 24, 2021 09:54 AM PLASMA Reporting Lab: [address] [address] Performing Lab: [address] [address] BASIC POTASSIUM 4.9 3.5 - 5.0 10/14 Specimen Typ e: SERUM [place] METABOLIC [MOLES/VOLU /2021 No comment entered. LD PANEL ME] IN Ordering Provid er: ELEUTERIO ORONA (fasting) SERUM OR Report Relea sed Date/Time: November 24, 2021 09:54 AM PLASMA Reporting Lab: [facility] [place] [facility] [address] [facility] [address] Performing Lab: [facility] [address] [facility] [facility] [address] BASIC CHLORIDE 107 100 - 110 10 Specimen Type : SERUM [place] METABOLIC [MOLES/VOLU /2021 No comment entered. LD PANEL ME] IN Ordering Provid er: ELEUTERIO ORONA (fasting) SERUM OR Report Relea sed Date/Time: November 24, 2021 09:54 AM PLASMA Reporting Lab: [address] [address] Performing Lab: [address] [address] BASIC CARBON 21 20 - 30 10 Specimen Type: S THU [place] METABOLIC DIOXIDE, /2021 No comment en tered. LD PANEL TOTAL Ordering Provid er: SANDRITAGERRIELEUTERIO MIRAMONTES (fasting) [MOLES/VOLU Report Re leased Date/Time: November 24, 2021 09:54 AM ME] IN Reporting Lab: [facility] SERUM OR [address] [facility] [address] PLASMA Performing Lab: [address] [address] BASIC CREATININE 1.33 0.50 - 1014 Specimen Type : SERUM [place] METABOLIC [MASS/VOLUM 1.40 /2021 No comment entered. LD PANEL E] IN SERUM Ordering Pr ovider: ELEUTERIO ORONA (fasting) OR PLASMA Report Rele ased Date/Time: November 24, 2021 09:54 AM Reporting Lab: [facility] [place] [facility] [address] [facility] [address] Performing Lab: [facility] [address] [address] BASIC GLOMERULAR 52 60 10/14 L Specimen Type : SERUM [place] METABOLIC FILTRATION /2021 No comment entered. LD PANEL RATE/1.73 Ordering Prov ider: ELEUTERIO ORONA (fasting) SQ Report Releas ed Date/Time: November 24, 2021 09:54 AM M.PREDICTED Reporting L ab: [facility]ITALRSPR[facility]ERN [facility]USE[facility] [VOLUME [address] [facility] [address] RATE/AREA] Performing L ab: [facility]ENTERUSETS [facility] IN SERUM, [address] [facility] [address] PLASMA OR BLOOD BY CREATININE- BASED FORMULA (CKD-EPI) LIVER PROTEIN 6.6 6.0 - 8.3 04/13 Specimen Type: SERUM [place] FUNCTION [MASS/VOLUM /2021 No comment entered. LD E] IN SERUM Ordering Pr ovider: ELEUTERIO ORONA OR PLASMA Report Releas ed Date/Time: November 24, 2021 09:54 AM Reporting Lab: [facility]ITALRSPRINGH[facility]ENTERN [facility]ENTERUSEMON[facility] [address] [facility] [facility] [address] Performing Lab: [facility]ITALRSPR[facility]ERN [facility]ENTERUSETS [facility] [address] [facility] [facility] [address] LIVER ALBUMIN 2.7 3.5 - 5.0 04/13 L Specimen Type: SERUM [place] FUNCTION [MASS/VOLUM /2021 No comment entered. LD E] IN SERUM Ordering Pr ovider: ELEUTERIO ORONA OR PLASMA Report Rele ed Date/Time: November 24, 2021 09:54 AM Reporting Lab: [facility]ITALRSPR[facility]ENTERN [facility]ENTERUSEMON[facility] [address] [facility] [facility] [address] Performing Lab: [facility]ITALRSPRINGH[facility]ENTERN [place] [facility] [address] [facility] [facility] [address] LIVER ALKALINE 122 40 - 150 04/13 Specimen Type: SERUM [place] FUNCTION No comment entered. LD [ENZYMATIC Ordering Pro vider: ELEUTERIO ORONA ACTIVITY/VO Report Rele ased Date/Time: November 24, 2021 09:54 AM LUME] IN Reporting Lab: [facility]ITALRSPR[facility]ERN [facility] SERUM OR [address] [facility] [address] PLASMA Performing Lab: [facility]ITALRSPRING[facility] [place] [address] [facility] [address] LIVER ASPARTATE 24 5 - 34 04/13 Specimen Type: SERUM [place] FUNCTION AMINOTRANSF No comment entered. LD ERASE Ordering Provid er: ELEUTERIO ORONA [ENZYMATIC Report Relea sed Date/Time: November 24, 2021 09:54 AM ACTIVITY/VO Reporting L ab: [facility] [place] LUME] [place] [address] [facility] [address] SERUM [place] Performing Lab : [facility] PLASMA [address] [facility] [address] LIVER ALANINE 43 6 - 55 04/13 Specimen Type: S THU [place] FUNCTION AMINOTRANSF No comment entered. LD ERASE Ordering Provid er: ELEUTERIO ORONA [ENZYMATIC Report Relea sed Date/Time: November 24, 2021 09:54 AM ACTIVITY/VO Reporting L ab: [facility] LUME] IN [address] [place] [id number] SERUM [place] Performing Lab : [facility] PLASMA [address] [place] [phone] LIVER BILIRUBIN.T 0.4 0.2 - 1.2 04/13 Specimen T ype: SERUM [place] FUNCTION OTAL /2021 No comment ente red. LD [MASS/VOLUM Ordering Pr ovider: ELEUTERIO ORONA E] IN SERUM Report Rele ased Date/Time: November 24, 2021 09:54 AM OR PLASMA Reporting Lab : [facility] [place] [address] [address] Performing Lab: [facility] [place] [address] [address] VITAMIN COBALAMIN 313 200 - 900 04/13 Specimen Typ e: SERUM [place] B12 (VITAMIN /2021 No comment ente red. LD B12) Ordering Provid er: ELEUTERIO ORONA [MASS/VOLUM Report Rele ased Date/Time: November 24, 2021 10:36 AM E] IN SERUM Reporting L ab: [facility] [place] [facility] OR PLASMA [address] [place] [phone] Performing Lab: [facility] [place] [address] [address] RETICULOC RETICULOCYT 1.6 0.6 - 2.0 04/13 Specimen Type: BLOOD [place] YTES /2021 No comment enter ed. LD [#/VOLUME] Ordering Pro vider: ELEUTERIO ORONA IN BLOOD Report Release d Date/Time: November 24, 2021 10:36 AM Reporting Lab: [facility] [place] [facility] [address] [facility] [address] Performing Lab: [facility] [place] [address] [facility] [address] RETICULOC RETICULOCYT 52.5 30.0 - 04/13 Specimen T ype: BLOOD [place] YTES ES/100 90.0 /2021 No comment enter ed. LD ERYTHROCYTE Ordering Pr ovider: ELEUTERIO ORONA S IN BLOOD Report Relea sed Date/Time: November 24, 2021 10:36 AM BY Reporting Lab: [facility] [place] AUTOMATED [address] [facility] [address] COUNT Performing Lab: [facility] [place] [facility] [address] [facility] [address] RETICULOC HEMOGLOBIN 33.0 27.9 - 04/13 Specimen Ty pe: BLOOD [place] YTES [ENTITIC 42.0 /2021 No comment ente red. LD MASS] IN Ordering Provi jaycee: ELEUTERIO ORONA RETICULOCYT Report Rele ased Date/Time: November 24, 2021 10:36 AM ES BY Reporting Lab: [facility] [place] [facility] AUT[facility]ATED [address] [facility] [address] COUNT Performing Lab: [facility] [place] [address] [facility] [address] FERRITIN FERRITIN 526.3 20 - 300 04/13 H Specimen Type : [place] [MASS/VOLUM /2021 No comment e ntered. LD E] IN SERUM Ordering Pr ovider: ELEUTERIO ORONA OR PLASMA Report Releas ed Date/Time: November 24, 2021 10:36 AM Reporting Lab: [facility] [place] [address] [facility] [address] Performing Lab: [facility] [place] [address] [facility] [address] IRON & IRON 243 204 - 475 04/13 Specimen Type: [place] TIBC BINDING /2021 No comment enter ed. LD PANEL CAPACITY Ordering Provi jaycee: ELEUTERIO ORONA [MASS/VOLUM Report Rele ased Date/Time: November 24, 2021 10:36 AM E] IN SERUM Reporting L ab: [facility] OR PLASMA [address] [facility] [address] Performing Lab: [facility] [place] [facility] [address] [facility] [address] IRON & IRON 46 40 - 160 04/13 Specimen Type: [place]UM [place] TIBC [MASS/VOLUM /2021 No comment e ntered. LD PANEL E] IN SERUM Ordering Pr ovider: ELEUTERIO ORONA OR PLASMA Report Releas ed Date/Time: November 24, 2021 10:36 AM Reporting Lab: [facility] [address] [facility] [address] Performing Lab: [facility] [address] [facility] [address] IRON & IRON/IRON 18.9 20.0 - 04/13 L Specimen Type: SERUM [place] TIBC BINDING 50.0 /2021 No comment enter ed. LD PANEL CAPACITY.TO Ordering Pr ovider: ELEUTERIO ORONA [MASS Report Releas ed Date/Time: November 24, 2021 10:36 AM RATIO] IN Reporting Lab : [facility] SERUM OR [address] [facility] [address] PLASMA Performing Lab: [address] [address] Vital Signs Combined list of inpatient and outpatient Vital Signs from Department of Defense and Veterans Affairs, ranging from 12 months to all on record, depending upon the facility. Vital Sign Value Date Comments Source SYSTOLIC BLOOD PRESSURE 148 03/14/2022 10:24:51 [facility] DIASTOLIC BLOOD PRESSURE 63 03/14/2022 10:24:51 [facility] PULSE OXIMETRY 96% 03/14/2022 10:24:51 [facility] PULSE 84 03/14/2022 10:24:51 [facility] RESPIRATION 20 03/14/2022 10:24:51 [facility] SYSTOLIC BLOOD PRESSURE 150 11/24/2021 09:27:23 [place] DIASTOLIC BLOOD PRESSURE 65 11/24/2021 09:27:23 [place] PULSE OXIMETRY 96% 11/24/2021 09:27:23 [facility] WEIGHT 240.2 11/24/2021 09:27:23 [facility] BMI 34kg/m2 11/24/2021 09:27:23 [facility] PAIN 8 11/24/2021 09:27:23 [facility] TEMPERATURE 97.9 11/24/2021 09:27:23 [facility] PULSE 71 11/24/2021 09:27:23 [facility] RESPIRATION 20 11/24/2021 09:27:23 [facility] Encounters Combined list of: 1) Encounters from Department of Veterans Affairs facilities going back up to the last 18 months. 2) Encounters from the Department of Defense facilities going back up to 280 months. Location Location Encounter Encounter Reason Attending ADM [place] Stat us Disposition Source Details Type Number For Provider Date Date Visit Outpatient 23923-0.63 MARIE, 10/24 [id number] [place] [facility] OFFICE 01448-3. Diagnos PETRAZZUOL 11/04 [facility] [id number] is: SILVINO Bach ON ON 72 ICD-10- CM R21 Rash and other nonspec ific skin eruptio n
w ith Provide r Comment s: Rash and other Nonspec ific Skin Eruptio n Outpatient 73527-2.63 MARIE, 11/09 [facility] En[facility] [id number] [facility] [place] Outpatient 48803-9.63 11/11 [facility] En[facility] [id number] [facility] [place] Outpatient 10980-9.63 EMMANUEL VIGIL 11/14 [facility] Encounter [id number] [facility] [place] [facility] Outpatient 70444-0.63 11/14 [facility] Encounter [id number] [facility] [place] [facility] OFFICE O/P 58376-1.68 [id number] is: SILVINO Bach ON 10-19 MIN 61 ICD-10- CM 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
with Provide r Comment s: Lichen Simplex Chronic us Outpatient 53167-5.63 12/05 [facility] Encounter [id number] /2021 [facility] [place] Outpatient 71160-4.68 NUPUR ALONSO 12/07 [id number] [facility] 08006-6.68 MARIA DOLORES, 12/13 [facility] En[facility] [id number] [facility] Outpatient 77808-8.63 12/14 [facility] Encounter [id number] /2021 [facility] Outpatient 32759-0.68 HOMERADDY 12/20 [facility] En[facility] [id number] [facility] PRO 78987-4.63 Diagnos MUSA,SOP 12/23 V A PHONE CALL [id number] is: HIE K CNTR L 5-10 MIN ICD-10- [facility] CM [place] Z71.89 SETS Other HCS 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 ed 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63 04/05 [facility] Encounter [id number] [facility] Outpatient 16430-0.63 04/11 [facility] Encounter [id number] [facility] Outpatient 12045-8.63 05/09 [facility] Encounter [id number] [facility] Outpatient 97791-7.63 05/10 [facility] Encounter [id number] [facility] Outpatient 76379-1.63 05/10 [facility] Encounter [id number] [facility] Outpatient 28621-3.63 05/16 [facility] Encounter [id number] [facility] ADM 37758-3.63 Diagnos RALPH OSBORN 05/20 SP RINGF SARSCOV2 [id number] is: LINDQUIST [place] 50MCG/0.25 25 ICD-10- MLBST CM Z23 Encount er for immuniz ation<b r/>with Provide r Comment s: Encount er for Immuniz ation Outpatient 85769-4.63 05/31 [facility] Encounter [id number] [facility] [facility] Outpatient 14206-0.63 06/07 [facility] Encounter [id number] IELD 26 Outpatient 28575-3.63 06/07 [facility] Encounter [id number] [facility] Outpatient 91983-7.63 Diagnos RANDY MONROY 06/07 [place] Encounter [id number] is: Marlen Gordon IELD 93 ICD-10- CM E11.9 Type 2 diabete s mellitu s without complic ations< br/>wit h Provide r Comment s: Type 2 Diabete s Mellitu s without Complic ations Outpatient 52300-6.63 06/14 [facility] Encounter [id number] [facility] Outpatient 56299-2.63 06/20 [facility] Encounter [id number] [facility] 29084-0.63 06/20 [facility] Encounter [id number] [facility] Outpatient 92517-4.63 07/04 [facility] Encounter [id number] [facility] Outpatient 96090-6.63 07/11 [facility] Encounter [id number] /2022 [facility] Outpatient 98571-9.63 08/01 [facility] Encounter [id number] /2022 [facility] Outpatient 52743-2.63 09/01 [facility] Encounter [id number] [facility] Outpatient 18032-7.63 09/29 [facility] Encounter [id number] /2022 [facility] Outpatient 55999-3.63 10/02 [facility] Encounter [id number] /2022 [facility] Outpatient 50672-3.63 10/06 [facility] Encounter [id number] /2022 [facility] Outpatient 44069-6.63 10/06 [facility] Encounter [id number] /2022 [facility] Outpatient 06464-3.63 10/06 [facility] Encounter [id number] /2022 [facility] Outpatient 77377-8.63 10/06 [facility] Encounter [id number] /2022 [facility] Outpatient 02378-7.63 10/06 [facility] Encounter [id number] [facility] Outpatient 87649-5.63 10/25 [facility] Encounter [id number] /2022 [facility] Outpatient 73234-4.63 10/26 [facility] Encounter [id number] /2022 [facility] Outpatient 85301-1.63 10/26 [facility] Encounter [id number] /2022 [facility] Outpatient 30230-5.63 10/26 [facility] Encounter [id number] /2022 [facility] OFFICE O/P 23075-1.63 Diagnos OLIVER BAER 10/31 [place] [id number] is: TIN [place] MINIMAL 74 ICD-10- PROB CM Z23 Encount er for immuniz ation<b r/>with Provide r Comment s: Encount er for Immuniz ation Outpatient 46396-4.63 11/01 [facility] Encounter [id number] /2022 [facility] OFFICE O/P 53402-4.63 Diagnos ADWOA, 11/24 [facility] [id number] is: ELEUTERIO IELD 40-54 MIN 38 ICD-10- CM D64.9 Anemia, unspeci fied
with Provide r Comment s: Anemia, unspeci fied (ICD-10 -CM D64.9) Outpatient 96669-7.63 02/15 [facility] Encounter [id number] [facility] Outpatient 25442-8.63 02/23 [facility] Encounter [id number] [facility] Outpatient 11084-9.63 02/25 [facility] Encounter [id number] [facility] Outpatient 91794-8.63 02/28 [facility] Encounter [id number] /2022 [facility] Outpatient 95516-5.63 DELMIS, 03/09 [facility] Encounter [id number] [facility] [facility] Outpatient 99342-4.63 03/09 [facility] Encounter [id number] /2022 [facility] Outpatient 71042-1.63 03/12 [facility] Encounter [id number] [facility] Outpatient 59294-9.63 03/12 [facility] Encounter [id number] [facility] Outpatient 89003-3.63 CATRACHITO TELLEZ 03/13 [facility] Encounter [id number] C [facility] Outpatient 62589-4.63 03/14 [facility] Encounter [id number] [facility] OFFICE O/P 21111-9.63 Diagnos OLIVER BAER 03/14 [facility] EST [id number] is: [place] MINIMAL 30 ICD-10- PROB CM Z23 Encount er for immuniz ation<b r/>with Provide r Comment s: Encount er for immuniz ation (ICD-10 -CM Z23.) OFFICE O/P 40902-7.63 Diagnos JULIUSDA 03/14 [facility] EST LOW [id number] is: VID A IELD 20-29 MIN 83 ICD-10- CM M54.50 Low back pain, unspeci fied
with Provide r Comment s: Low back pain, unspeci fied Outpatient 30339-0.63 03/14 [facility] Encounter [id number] /2022 [facility] Outpatient 76316-1.63 03/14 [facility] Encounter [id number] /2022 [facility] Outpatient 01554-6.63 03/15 [facility] Encounter [id number] /2022 [facility] ELECTRICAL 30481-5.63 Diagnos BAGDAMIÁN,OL 03/21 [facility] STIM[facility] [id number] is: IVIA IELD N 59 ICD-10- CM M54.50 Low back pain, unspeci fied
with Provide r Comment s: Low back pain, unspeci fied TENS FOUR 37962-4.63 Diagnos KANGA 03/22 [facility] LEAD [id number] is: NGUS J [facility]TR[facility] ICD-10- W[facility] CM [place] M54.50 SETS [facility] HCS back pain, unspeci fied
with Provide r Comment s: Low back pain, unspeci fied OFFICE O/P 17422-9.63 Diagnos KUPFERSCHM 03/27 [place] NEW MOD [id number] is: DION YEUNG CNT RL 45-59 MIN ICD-10- [facility] CM [place] S32.030 SETS [facility] comprsn fx third lum vert, subs for fx w routn heal
with Provide r Comment s: [facility] Sophy usama Fractur e of third Lumbar Vertebr a, Subsequ ent Encount er for Fractur e with Routine Healing ELECTRODES 31590-0.63 Diagnos Antonella KAPADIA 03/27 [place] , PAIR [id number] is: NGUS J [facility]TR[facility] ICD-10- [facility] CM [place] M54.50 SETS [facility]CS back pain, unspeci fied
with Provide r Comment s: Low back pain, unspeci fied Outpatient 58467-0.63 04/03 [facility] Encounter [id number] /2022 [facility] Outpatient 27814-5.63 04/04 [facility] Encounter [id number] /2022 [facility] OFFICE O/P 41960-2.63 Diagnos KUPFERSCHM 04/16 [place] EST MOD [id number] is: DION YEUNG CNT RL 30-39 MIN ICD-10- [facility] CM [place] S32.020 SETS S [facility] sophy usama fractur e of second lum vertebr a, sequela
wi th Provide r Comment s: [facility] Sophy usama Fractur e of second Lumbar [place], [place] [address]-5.63 Diagnos UMESH,CHR 04/17 [facility] [id number] is: ISTINE F ER [facility] ASSMT&MGMT 16 ICD-10- CLINIC 5-10 CM (631GE) J45.998 Other asthma< br/>wit h Provide r Comment s: Other Asthma Outpatient 77857-1.63 NICOLE MILLER 04/18 [facility] Encounter [id number] [facility] Outpatient 50695-3.63 04/19 [facility] Encounter [id number] /2022 [facility] Social History Combined list of available smoking, tobacco, and other social history [facility]. Social History Response Date Comment Source Type Tobacco smoking VA-TOBACCO FORMER 11/24/2021 [place] status NHIS USER History of VA-TOBACCO QUIT 15 11/24/2021 [place] tobacco use YRS OR MORE History of VA-TOBACCO QUIT 15 07/26/2020 [facility] tobacco use YRS OR MORE [place] [facility] History of VA-TOBACCO QUIT 15 07/16/2018 [place] tobacco use YRS OR MORE History of QUIT TOBACCO USE > 08/16/2017 vet quit 30 years [place] tobacco use 7 YEARS AGO ago History of QUIT TOBACCO USE > 09/13/2016 quit 30 years ago [place] tobacco use 7 YEARS AGO History of QUIT TOBACCO USE > 07/25/2015 [place] tobacco use 7 YEARS AGO History of HISTORY OF SMOKING 02/05/2005 Patient states he [place] tobacco use quit smoking 18 years ago. History of HISTORY OF SMOKING 09/27/2003 stopped tobacco [place] tobacco use 20 years ago History of HISTORY OF SMOKING 05/25/2002 Stopped tobacco [place] tobacco use 16 years ago History of QUIT TOBACCO USE > 09/26/2001 [place] tobacco use 7 YEARS AGO History of HISTORY OF SMOKING 01/24/2001 quit 16 years [place] tobacco use Plan of Care List of future care activities from Department of Veterans Affairs facilities. Additional future care activities may be listed in the Assessment and Plan section. Date/Time Care Activity Care Activity Detail Facility 05/21/2022 AMBULATORY - MEDICINE AMBULATORY - MEDICINE [facility] Advance Directives List of completed, amended, or rescinded Advance Directives on record at Department of Veterans Affairs facilities. An actual copy of the Directive is not included. Date Advance Directive Provider Source 05/20/2006 ADVANCE DIRECTIVE BAYLEE SHUKLA
--- OUTSIDE RECORDS SUMMARY | 2022-04-21 09:12 | XMS_ITS ---
:1935 Author Organization [facility] Address [address] [place] [address] Support Name Relationship Address Phone BRIAN CHARLES Unavailable [address] [place] [address] BRIAN CHARLES Unavailable [address] [place] [address] BRIAN CHARLES Unavailable [address] [phone] [place] [address] Insurance Providers: All historical and current Section [...] Number [place] ANTHEM MEDIGAP MEDEX Dec 29, [id number] [phone] Anamika WALSH PATIENT BCBS OF CT PLAN C 2001 3 [place] ANTHEM MEDICARE MEDEX Dec 29, [id number] [phone] Anamika WALSH PATIENT BCBS OF CT SUPPLEMEN BRON 2001 3 [place] MEDIC[place] Dec 29, [id number] [phone] Anamika GONZALES PATIENT SUPPLEMEN BRONZ 2001 4 [place] Dec 29, [id number] [phone] Anamika GONZALES PATIENT SUPPLEMEN BRONZ 2001 4 [place] E BCBS OF MEDICARE PSUED May 31, [id number] [phone] Anamika GONZALES PATIENT MASS SUPPLEMEN O 1999 3 SPE[place] MEDEX BRONZ E [place]UE [place] MEDIGAP MEDEX May 31 [id number] [phone] WHEE LER,R PATIENT [facility]UE [facility] [place] 1999 05 [id number] SPE[place] [facility] [place] MEDICARE MEDICARE PART October 29, PART B [id number] [phone] WHEELE R,R PATIENT (WNR) (M) B 2001 RC08 2 [place] MEDICARE MEDICARE PART October 29, PART B [id number] WHEELE R,R PATIENT (WNR) (M) B 2001 85A 00 [place] MEDICARE MEDICARE PART October 29, PART B [id number] [place] R,R PATIENT (WNR) (M) B 2001 RC08 00 [place] MEDICARE MEDICARE PART October 29, PART B [id number] [phone] [place]ELE R,R PATIENT (WNR) (M) B 2001 85A 00 [place] MEDICARE MEDICARE PART October 29, PART B [id number] WHEELE R,R PATIENT (WNR) (M) B 2001 RC08 00 [place] MEDICARE MEDICARE PART May 31, PART A [id number] [phone] WHEELE R,R PATIENT (WNR) (M) A 1999 RC08 2 [place] MEDICARE MEDICARE PART May 31, PART A [id number] WHEELE R,R PATIENT (WNR) (M) A 1999 85A 00 [place] MEDICARE MEDICARE PART May 31, PART A [id number] [place] R,R PATIENT (WNR) (M) A 1999 RC08 00 [place] MEDICARE MEDICARE PART May 31, PART A [id number] [id number] [place] R,R PATIENT (WNR) (M) A 1999 85A 00 [place] MEDICARE MEDICARE PART May 31, PART A [id number] [place] R,R PATIENT (WNR) (M) A 1999 RC08 00 SPE[place] Selected Encounter This section includes the information on record at [place] for the Encounter. Date/Time Encounter Type Encounter Description Reason Provider Source Oct 06, 2021 03:34 Outpatient Encounter PRIMARY CARE/MEDICINE PM [facility] Encounter Template Text not used by [place] Plan of Treatment: Future Appointments (+ 6 months) and Future Tests (+/- 45 days) The Plan of Treatment section includes future care activities for the patient from [facility] [place] [facility]. This section includes future appointments and future orders which are active, pending orscheduled.Future Appointments This section includes appointments that were scheduled to occur 6 months from the date of the Encounter, up to a maximum of 20 appointments. The data comes from all [place] treatment facilities. Appointment Date/Time Appointment Type Appointment Facili ty Name Oct 26, 2021 01:30 PM AMBULATORY [facility] October 31, 2021 01:30 PM [facility]ULATORY [facility] November 24, 2021 09:[address] [facility] Mar 14, 2022 08:30 AM [facility]ATORY [facility] [place] Mar 14, 2022 09:00 AM [facility]ORY [facility] Mar 21[facility] 2022 10[facility]30 AM [facility] Mar 27, 2022 09:30 AM [facility] Social History: Smoking Status (Most current) and Tobacco Use (All prior to encounter date) This section includes the most current, and the historical, smoking and tobacco-related health factors from the [place] facility where the Encounter took place.Current Smoking Status This section includes the most current smoking, or tobacco-related health factor, from the [place] facility where the Encounter took place. Date/Time Current Smoking Status Comment Facility Jul 26, 2020 10:43 AM [place]-TOBACCO FORMER USER [facility] Tobacco Use History This section includes a history of the smoking, or tobacco- related health factors, that were collected on or before the date of the Encounter. The data comes from the [place] facility where the Encounter took place. Date/Time Smoking Status/Tobacco Use Comment [facility] Jul 26, 2020 10:43 [facility] Advance Directives: All historical and current Section Date Range: From patient's date of to the date document was created. This section includes ALL of a patient's completed or amended [place] Advance and Rescinded Directives. The entries below indicate that a directive exists for the patient, but an actual copy is not included with this document. The data comes from all [place] facilities. Date Advance Directives Provider Source May 20, 2006 ADVANCE DIRECTIVE SHUKLABAYLEE [place] Encounter Notes: All associated encounter notes This section contains the clinical notes associated to the Encounter. Date/Time Encounter Note(s) Provider Source Oct 06, 2021 03:34 PM ADMINISTRATIVE NOTE: ADAM MATA [facility] LOCAL TITLE: ADMINISTRATIVE NOTE STANDARD TITLE: ADMINISTRATIVE NOTE DATE OF NOTE: OCT 06, 2021@15:34 ENTRY DATE: OCT 06, 2021@15:34:25 AUTHOR: ADAM MATA EXP COSIGNER: URGENCY: STATUS: COMPLETED TELEPHONE CALL - Scheduling PCP appointment Stuart record with respect to receipt of COVID- 19 vaccination [ ] No indication of receipt [X} Received at or via [facility] [ ] Received at another [place] facility [ ] Received in the community [ ] Stuart declines COVID-19 vaccination COVID-19 BOOSTER VACCINATION completed on May PATIENT PHONE - PHONE NUMBER [CELLULAR] - NONE FOUND PURPOSE OF CALL: [X} Schedule appointment with PRIMARY CARE JOSEFINA BUNN [ ] Reschedule appointment with PRIMARY CARE PRO VIDER [X} Offer to schedule CWM/SO/MOD BOOSTER vaccine appointment Taxicab Driver called - RESULTS OF CALL: [X} SUCCESSFUL CONTACT: [ ] UNABLE TO SCHEDULE an appointment [X} Scheduled subject appointment with PRIMARY CARE PROVIDER [X} Scheduled subject appointment to receive CW M/SO/COVID VACCINE === === DETAILS OF CALL: Spoke with respondent, [X} Patient [ ] 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 [X} Letter mailed as appointment reminder. [X} Confirmed 's mailing address as the following: [place] [address] [facility] [address]. [X} Reminded respondent that wearing of masks is mandatory in [facility] facilities, and that Stuart an d any other visitor wear mask to any appointment, lab oratory testing, or other activities in [facility], as [facility] not issue masks. Re: COVID-19 VACCINATION STATUS [X} Respondent requests a CWM/SO/COVID VACCINE appointment for Stuart. [X} Taxicab Driver negotiated with respondent, and sched uled CWM/SO/COVID VACCINE appointments for Stuart. [X] Reminded respondent that wearing of masks is mandatory in [facility] facilities, and that an d any other visitor wear mask to any appointment, lab oratory testing, or other activies in [place], as [place] does not issue [place]. [X} Letter mailed as appointment reminder. Upcoming Appointments: 10/26/2021 13:30 [facility] /es/ ADAM RINCON, [facility], [facility] Signed: 10/06/2021 15:49
--- OUTSIDE RECORDS SUMMARY | 2022-04-21 09:12 | XMS_ITS | Encounter Summary ---
:1935 Author Organization [facility] Address [address] [place] [address] Support Name Relationship Address Phone BRIAN CHARLES Unavailable [address] [place] [address] BRIAN CHARLES Unavailable [address] [place] [address] BRIAN CHARLES Unavailable [address] [phone] [place] [address] Insurance Providers: All historical and current Section [...] Number Stinson ANTHEM MEDIGAP MEDEX Dec 29, [id number] [phone] Anamika WALSH PATIENT BCBS OF CT PLAN C 2001 3 SPEEDY ANTHEM MEDICARE MEDEX Dec 29, [id number] [phone] Anamika WALSH PATIENT BCBS OF CT SUPPLEMEN BRON 2001 3 SPEED[place] Dec 29, [id number] [phone] Anamika GONZALES PATIENT SUPPLEMEN BRONZ 2001 4 SPEED[place] Dec 29, [id number] [phone] Anamika GONZALES PATIENT SUPPLEMEN BRONZ 2001 4 SPEEDY [place] E BCBS OF MEDICARE PSUED May 31, [id number] [phone] Anamika GONZALES PATIENT [place] SUPPLEMEN O 1999 3 SPEEDY [place] MEDEX BRONZ E BLUE CROSS MEDIGAP MEDEX May 31 [id number] [phone] WHEE LER,R PATIENT BLUE [facility] [place] EAST 1999 05 [id number] 4 SPEEDY SHIELD [place] MEDICARE MEDICARE PART October 29, PART B [id number] [phone] WHEELE R,R PATIENT (WNR) (M) B 2001 RC08 2 SPEEDY MEDICARE MEDICARE PART October 29, PART B [id number] [phone] WHEELE R,R PATIENT (WNR) (M) B 2001 85A 00 SPEEDY MEDICARE MEDICARE PART October 29, PART B [id number] [phone] WHEELE R,R PATIENT (WNR) (M) B 2001 RC08 00 SPEEDY MEDICARE MEDICARE PART October 29, PART B [id number] [phone] WHEELE R,R PATIENT (WNR) (M) B 2001 85A 00 SPEEDY MEDICARE MEDICARE PART October 29, PART B [id number] [phone] WHEELE R,R PATIENT (WNR) (M) B 2001 RC08 00 SPEEDY MEDICARE MEDICARE PART May 31, PART A [id number] [id number] WHEELE R,R PATIENT (WNR) (M) A 1999 RC08 2 SPEEDY MEDICARE MEDICARE PART May 31, PART A [id number] [phone] WHEELE R,R PATIENT (WNR) (M) A 1999 85A 00 SPEEDY MEDICARE MEDICARE PART May 31, PART A [id number] [phone] WHEELE R,R PATIENT (WNR) (M) A 1999 RC08 00 SPEEDY MEDICARE MEDICARE PART May 31, PART A [id number] [phone] WHEELE R,R PATIENT (WNR) (M) A 1999 85A 00 SPEEDY MEDICARE MEDICARE PART May 31, PART A [id number] [phone] WHEELE R,R PATIENT (WNR) (M) A 1999 RC08 00 SPEEDY Selected Encounter This section includes the information on record at PA for the Encounter. Date/Time Encounter Type Encounter Description Reason Provider Source Oct 02, 2021 08:43 Outpatient Encounter PRIMARY CARE/MEDICINE AM IHE Encounter Template Text not used by PA Plan of Treatment: Future Appointments (+ 6 months) and Future Tests (+/- 45 days) The Plan of Treatment section includes future care activities for the patient from [facility] This section includes future appointments and future orders which are active, pending orscheduled.Future Appointments This section includes appointments that were scheduled to occur 6 months from the date of the Encounter, up to a maximum of 20 appointments. The data comes from all PA treatment facilities. Appointment Date/Time Appointment Type Appointment Facili ty Name Oct 26, 2021 01:30 PM AMBULATORY MEDICINE [facility] October 31, 2021 01:30 PM AMBULATORY MEDICINE [facility] November 24, 2021 09:00 AM [facility] Mar 14, 2022 08:30 AM AMBULATORY [facility] Mar 14, 2022 09:00 AM [facility]UL[facility]ORY [facility] Mar 21, 2022 10:30 AM [facility] Mar 27, 2022 09:30 AM [facility] MEDICINE [facility] Social History: Smoking Status (Most current) and Tobacco Use (All prior to encounter date) This section includes the most current, and the historical, smoking and tobacco-related health factors from the PA facility where the Encounter took place.Current Smoking Status This section includes the most current smoking, or tobacco-related health factor, from the PA facility where the Encounter took place. Date/Time Current Smoking Status Comment Facility Jul 26, 2020 10:43 [facility] Tobacco Use History This section includes a history of the smoking, or tobacco- related health factors, that were collected on or before the date of the Encounter. The data comes from the PA facility where the Encounter took place. Date/Time Smoking Status/Tobacco Use Comment [facility] Jul 26, 2020 10:43 AM [facility] Advance Directives: All historical and current Section Date Range: From patient's date of to the date document was created. This section includes ALL of a patient's completed or amended PA Advance and Rescinded Directives. The entries below indicate that a directive exists for the patient, but an actual copy is not included with this document. The data comes from all PA facilities. Date Advance Directives Provider Source May 20, 2006 ADVANCE DIRECTIVE BAYLEE SHUKLAFIELD Encounter Notes: All associated encounter notes This section contains the clinical notes associated to the Encounter. Date/Time Encounter Note(s) Provider Source Oct 02, 2021 08:43 AM MEDICATION MGT NOTE: KARRI WRIGHT [facility] LOCAL TITLE: OUTPATIENT MEDICATION REQUEST STANDARD TITLE: MEDICATION MGT NOTE DATE OF NOTE: OCT 02, 2021@08:43 ENTRY DATE: OCT 02, 2021@08:43:21 AUTHOR: KARRI WRIGHT EXP COSIGNER: URGENCY: STATUS: COMPLETED Medication Request Date of Request: Sep Is this a New Medication? No Active and Recently Outpatient Medicatio ns (including Supplies): Active Outpatient Medications Status 1) DOXAZOSIN MESYLATE 2MG TAB TAKE ONE TABLET BY MOUTH ACTIVE ONCE DAILY 2) ZAFIRLUKAST 20MG TAB TAKE ONE TABLET BY MOUTH TWICE ACTIVE DAILY RENEW AND MAIL /es/ KARRI WRIGHT LPN LPN Signed: 10/02/2021 08:44 Receipt Acknowledged By: * AWAITING SIGNATURE * ELEUTERIO ORONA
--- OUTSIDE RECORDS SUMMARY | 2022-04-21 09:12 | XMS_ITS ---
:1935 Author Organization [facility] Address [address] [place] [address] Support Name Relationship Address Phone BRIAN CHARLES Unavailable [address] [place] [address] BRIAN CHARLES Unavailable [address] [place] [address] BRIAN CHARLES Unavailable [address] [phone] [place] [address] Insurance Providers: All historical and current Section [...] Number Stinson ANTHEM MEDIGAP MEDEX Dec 29, [id number] [phone] Anamika WALSH PATIENT BCBS OF CT PLAN C 2001 3 SPEEDY ANTHEM MEDICARE MEDEX Dec 29, [id number] [phone] Anamika WALSH PATIENT BCBS OF CT SUPPLEMEN BRON 2001 3 SPE[place] E BCBS [place] MEDICARE MED[place] Dec 29, [id number] [phone] Anamika GONZALES PATIENT SUPPLEMEN BRONZ 2001 4 SPE[place] MED[place] MED[place] Dec 29, [id number] [phone] Anamika GONZALES PATIENT SUPPLEMEN BRONZ 2001 4 SPEEDY [place] E BCBS OF MEDICARE PSUED May 31, [id number] [phone] Anamika GONZALES PATIENT [place] SUPPLEMEN O 1999 3 SPEEDY [place] MEDEX BRONZ E BLUE CROSS MEDIGAP MEDEX May 31 [id number] [phone] WHEE LER,R PATIENT BLUE [facility] [place] EAST 1999 05 [id number] 4 SPEEDY SHIELD [facility] MEDICARE MEDICARE PART October 29, PART B [id number] [phone] WHEELE R,R PATIENT (WNR) (M) B 2001 RC08 2 SPEEDY MEDICARE MEDICARE PART October 29, PART B [id number] [phone] WHEELE R,R PATIENT (WNR) (M) B 2001 85A 00 SPEEDY MEDICARE MEDICARE PART October 29, PART B [id number] [phone] WHEELE R,R PATIENT (WNR) (M) B 2001 RC08 00 SPEEDY MEDICARE MEDICARE PART October 29, PART B [id number] [phone] WHEELE R,R PATIENT (WNR) (M) B 2001 85A 00 SPEEDY MEDICARE MEDICARE PART October 29, PART B [id number] [id number] WHEELE R,R PATIENT (WNR) (M) B 2001 RC08 00 SPEEDY MEDICARE MEDICARE PART May 31, PART A [id number] [phone] WHEELE R,R PATIENT (WNR) (M) A 1999 RC08 2 SPEEDY MEDICARE MEDICARE PART May 31, PART A [id number] [phone] WHEELE R,R PATIENT (WNR) (M) A 1999 85A 00 SPEEDY MEDICARE MEDICARE PART May 31, PART A [id number] [phone] WHEELE R,R PATIENT (WNR) (M) A 1999 RC08 00 SPEEDY MEDICARE MEDICARE PART May 31, PART A [id number] [id number] WHEELE R,R PATIENT (WNR) (M) A 1999 85A 00 SPEEDY MEDICARE MEDICARE PART May 31, PART A [id number] [phone] WHEELE R,R PATIENT (WNR) (M) A 1999 RC08 00 SPEEDY Selected Encounter This section includes the information on record at MD for the Encounter. Date/Time Encounter Type Encounter Description Reason Provider Source Oct 26, 2021 10:15 Outpatient Encounter PRIMARY CARE/MEDICINE AM IHE Encounter Template Text not used by MD Plan of Treatment: Future Appointments (+ 6 months) and Future Tests (+/- 45 days) The Plan of Treatment section includes future care activities for the patient from all MD treatmentfacilities. This section includes future appointments and future orders which are active, pending orscheduled.Future Appointments This section includes appointments that were scheduled to occur 6 months from the date of the Encounter, up to a maximum of 20 appointments. The data comes from all MD treatment facilities. Appointment Date/Time Appointment Type Appointment Facili ty Name October 31, 2021 01:30 PM AMBULATORY MEDICINE [facility] November 24, 2021 09:00 AM [facility] Mar 14, 2022 08:30 AM AMBULATORY MEDICINE [place] Mar 14, 2022 09:00 AM [facility] Mar 21, 2022 10:30 AM [facility] Mar 27, 2022 09:30 AM [facility] Apr 16, 2022 09:30 AM [facility] MEDICINE [facility] Lab Results: +/- 30 days of the encounter This section includes the Chemistry and Hematology Lab Results on record with MD for the patient. Radiology Reports and Pathology Reports are provided separately, in subsequent sections.Lab Results This section contains the Chemistry/Hematology Results that were resulted 30 days before or 30 daysafter the date of the Encounter. Date/Time Source Result Type Result - Unit Interpretation Reference Range Comment November 08, 2021 07:32 AM [place] HEMOGLOBIN A1C PANEL Spec imen Type: BLOOD Comment: Testin g performed by NGSP certified [employer] with CV <2%. The Rain HgA1C assay should not be used to diagnose or monitor diabetes in patients with altered red cell lifespan such a s homozygous hem oglobin variants, Hb SC, HbF>5% and hemolytic anemia. Heterozygous variants do not affect this assay, HbAS, HbAC, HbAD, HbAE, AbA2 Ordering Provid er: ELEUTERIO ORONA Report Released Date/Time: Oct 17, 2021 04:03 PM Reporting Lab: [address] [address] Performing Lab: [address] [address] HEMOGLOBIN A1C 6.9 H 4.0-5.6 November 08, 2021 07:32 [place] BASIC METABOLIC PANEL Specim en Type: SERUM AM (fasting) No comment enter ed. Ordering Provid er: ELEUTERIO ORONA Report Released Date/Time: Oct 17, 2021 04:03 PM Reporting Lab: [facility] [address] [facility] [address] Performing Lab: [facility] [address] [facility] [address] UREA NITROGEN 32 H 7-25 GLUCOSE 146 H 65-100 SODIUM 137 135-145 POTASSIUM 5.0 3.5-5.0 CHLORIDE 105 100-110 CO2 24 20-30 CREATININE, Serum 1.28 0.50-1.40 eGFR(CKD-EPI 2020) 54 L >60 November 08, 2021 07:32 AM [facility] [place] LIPID PANEL FASTING Speci men Type: SERUM No comment enter ed. Ordering Provid er: ELEUTERIO ORONA Report Released Date/Time: Oct 17, 2021 04:03 PM Reporting Lab: [facility] [address] [facility] [address] Performing Lab: [facility] [address] [facility] [address] CHOLESTEROL 132 <7-199 TRIGLYCERIDE 78 0-150 LDL calculated 82 0-129 CHOL/HDL 3.9 HDL CHOLESTEROL 34 L 40-60 November 08, 2021 07:32 AM [facility] LIVER FUNCTION Specimen Type: SERUM No comment enter ed. Ordering Provid er: ELEUTERIO ORONA Report Released Date/Time: Oct 17, 2021 04:03 PM Reporting Lab: [facility] [address] [facility] [address] Performing Lab: [facility] [address] [facility] [address] PROTEIN,TOTAL 6.6 6.0-8.3 ALBUMIN 3.0 L 3.5-5.0 ALKALINE PHOSPHATASE 96 40-150 AST 12 5-34 ALT 13 <6-55 BILIRUBIN, TOTAL 0.4 0.2-1.2 November 08, 2021 07:32 AM [place] CBC AND DIFF (AUTO) Speci men Type: BLOOD Comment: MCV Ve rified by repeat analysis. Ordering Provid er: ELEUTERIO ORONA Report Released Date/Time: Oct 17, 2021 04:03 PM Reporting Lab: [facility] [address] [facility] [address] Performing Lab: [facility] [address] [facility] [address] WBC 11.68 H 4.50-11.00 RBC 3.63 L 4.23-5.66 HGB 10.2 L 12.8-17 HCT 32.5 L 39.2-50.4 MCV 89.5 82-99 MCHC 31.4 30.8-35.1 PLT 396 H 140-360 RDW-CV 16.2 H 12.0-16.0 [place], Abs 1.06 0.30-1.10 MCH 28.1 26.2-32.6 Neut % 57.0 Lymph % 26.4 [place] % 9.1 Eos % 6.3 Baso % 0.6 Neut, Abs 6.66 2.20-7.60 Lymph, Abs 3.08 1.00-3.20 Eos, Abs 0.74 H 0.03-0.44 Baso, Abs 0.07 0.01-0.13 Immature Gran % 0.6 Immature Gran, Abs 0.07 H 0.00-0.06 Social History: Smoking Status (Most current) and Tobacco Use (All prior to encounter date) This section includes the most current, and the historical, smoking and tobacco-related health factors from the MD facility where the Encounter took place.Current Smoking Status This section includes the most current smoking, or tobacco-related health factor, from the MD facility where the Encounter took place. Date/Time Current Smoking Status Comment Facility Jul 26, 2020 10:43 AM [facility]-TOBACCO FORMER USER [facility] Tobacco Use History This section includes a history of the smoking, or tobacco- related health factors, that were collected on or before the date of the Encounter. The data comes from the MD facility where the Encounter took place. Date/Time Smoking Status/Tobacco Use Comment [facility] Jul 26, 2020 10:43 AM MD-TOBACCO QUIT 15 YRS OR [facility] [place] [facility] Advance Directives: All historical and current Section Date Range: From patient's date of to the date document was created. This section includes ALL of a patient's completed or amended [place] Advance and Rescinded Directives. The entries below indicate that a directive exists for the patient, but an actual copy is not included with this document. The data comes from all MD facilities. Date Advance Directives Provider Source May 20, 2006 ADVANCE DIRECTIVE GAYLABAYLEE Encounter Notes: All associated encounter notes This section contains the clinical notes associated to the Encounter. Date/Time Encounter Note(s) Provider Source Oct 26, 2021 10:15 AM NURSING NOTE: CINDY BAER LOCAL TITLE: NURSING/TELEPHONE STANDARD TITLE: NURSING NOTE DATE OF NOTE: OCT 26, 2021@10:15 ENTRY DATE: OCT 26, 2021@10:15:04 AUTHOR: CINDY BAER EXP COSIGNER: URGENCY: STATUS: COMPLETED Received call from aL r equesting refill of atorvastatin and author advised that next fill isn't scheduled until 11/30 022 due to last refill was released in mail on 10/09/2021. author checked with pharmacy who confirmed that they have delivery confirmation for this med and two other s on 10/12/2021. is going to look for medication within home and jay cantu advised to speak with pharmacy staff if can't find to see if they can assist. [place] also questioning if should be taking dil tiazem medication that was received in the mail, [place] thought me dication had been discontinued. Author reviewed previous provider n emily and advised [place] that PCP had indicated that nephrology was managing [place]'s bp medications and addressing tachycardia. reports that he has nephrology appt this afternoon so author advised him to discuss with them today and then provided spo pc fax number to [place] and requested that he have child protective services social worker fax today's office visit note to MD PACT team for review. /selam/ TANYA LUO RN-BC REGISTERED NURSE Signed: 10/26/2021 10:24
--- OUTSIDE RECORDS SUMMARY | 2022-04-21 09:12 | XMS_ITS | Encounter Summary ---
:1935 Author Organization [facility] Address [address] [place] [address] Support Name Relationship Address Phone BRIAN CHARLES Unavailable [address] [place] [address] BRIAN CHARLES Unavailable [address] [place] [address] BRIAN CHARLES Unavailable [address] [phone] [place] [address] Insurance Providers: All historical and current Section [...] Number Stinson ANTHEM MEDIGAP MEDEX Dec 29, [id number] [phone] Anamika WALSH PATIENT BCBS OF CT PLAN C 2001 3 SPEEDY ANTHEM MEDICARE MEDEX Dec 29, [id number] [phone] Anamika WALSH PATIENT BCBS OF CT SUPPLEMEN BRON 2001 3 SPEED[place] MED[place] MED[place] Dec 29, [id number] [phone] Anamika GONZALES PATIENT SUPPLEMEN BRONZ [id number] 4 SPE[place] Dec 29, [id number] [phone] Anamika GONZALES PATIENT SUPPLEMEN BRONZ 2001 4 SPEEDY [place] E BCBS OF MEDICARE PSUED May 31, [id number] [phone] Anamika GONZALES PATIENT [place] SUPPLEMEN O [id number] 3 SPEEDY [place] MEDEX BRONZ E BLUE CROSS MEDIGAP MEDEX May 31, [id number] [phone] WHEE LER,R PATIENT BLUE [facility] [place] 1999 05 [id number] 4 [place] SHIELD OF [place] MEDICARE MEDICARE PART October 29, PART B [id number] [phone] WHEELE R,R PATIENT (WNR) (M) B 2001 RC08 2 [place] MEDICARE MEDICARE PART October 29, PART B [id number] [phone] WHEELE R,R PATIENT (WNR) (M) B 2001 85A 00 SPEEDY MEDICARE MEDICARE PART October 29, PART B [id number] [phone] WHEELE R,R PATIENT (WNR) (M) B 2001 RC08 00 SPEEDY MEDICARE MEDICARE PART October 29, PART B [id number] [phone] WHEELE R,R PATIENT (WNR) (M) B 2001 85A 00 SPEEDY MEDICARE MEDICARE PART October 29, PART B [id number] [phone] WHEELE R,R PATIENT (WNR) (M) B 2001 RC08 00 [facility] MEDICARE MEDICARE PART May 31, PART A [id number] [phone] WHEELE R,R PATIENT (WNR) (M) A 1999 RC08 2 SPEEDY MEDICARE MEDICARE PART May 31, PART A [id number] [phone] WHEELE R,R PATIENT (WNR) (M) A 1999 85A 00 SPEEDY MEDICARE MEDICARE PART May 31, PART A [id number] [phone] WHEELE R,R PATIENT (WNR) (M) A 1999 RC08 00 SPEEDY MEDICARE MEDICARE PART May 31, PART A [id number] [phone] WHEELE R,R PATIENT (WNR) (M) A 1999 85A 00 SPEEDY MEDICARE MEDICARE PART May 31, PART A [id number] [id number] WHEELE R,R PATIENT (WNR) (M) A 1999 RC08 SPEEDY Selected Encounter This section includes the information on record at VA for the Encounter. Date/Time Encounter Type Encounter Description Reason Provider Source Sep 29, 2021 03:00 Outpatient Encounter TELEPHONE TRIAGE PM IHE Encounter Template Text not used by VA Plan of Treatment: Future Appointments (+ 6 months) and Future Tests (+/- 45 days) The Plan of Treatment section includes future care activities for the [facility] This section includes future appointments and future orders which are active, pending orscheduled.Future Appointments This section includes appointments that were scheduled to occur 6 months from the date of the Encounter, up to a maximum of 20 appointments. The data comes from all [facility] treatment [facility]. Appointment Date/Time Appointment Type Appointment Facili ty Name Oct 26, 2021 01:30 PM AMBULATORY MEDICINE [facility] October 31, 2021 01:30 PM AMBULATORY MEDICINE [facility] November 24, 2021 09:00 AM [facility] Mar 14, 2022 08:30 AM AMBULATORY MEDICINE [place] Mar 14, 2022 09:00 AM AMBULATORY [facility] Mar 21, 2022 10:30 AM AMBULATORY - REHAB [facility] Mar 27, 2022 09:30 AM [facility] MEDICINE [facility] Social History: Smoking Status (Most current) and Tobacco Use (All prior to encounter date) This section includes the most current, and the historical, smoking and tobacco-related health factors from the AR facility where the Encounter took place.Current Smoking Status This section includes the most current smoking, or tobacco-related health factor, from the AR facility where the Encounter took place. Date/Time Current Smoking Status Comment Facility Jul 26, 2020 10:43 AM AR-TOBACCO FORMER USER [facility] Tobacco Use History This section includes a history of the smoking, or tobacco- related health factors, that were collected on or before the date of the Encounter. The data comes from the AR facility where the Encounter took place. Date/Time Smoking Status/Tobacco Use Comment [facility] Jul 26, 2020 10:43 [facility] Advance Directives: All historical and current Section Date Range: From patient's date of to the date document was created. This section includes ALL of a patient's completed or amended [place] Advance and Rescinded Directives. The entries below indicate that a directive exists for the patient, but an actual copy is not included with this document. The data comes from all VA facilities. Date Advance Directives Provider Source May 20, 2006 ADVANCE DIRECTIVE BAYLEE SHUKLA [place] Encounter Notes: All associated encounter notes This section contains the clinical notes associated to the Encounter. Date/Time Encounter Note(s) Provider Source Sep 29, 2021 03:00 PM NURSING TELEPHONE ENCOUNTER TRIAGE NOTE: RONNIE HUNT [facility] LOCAL TITLE: [facility] STANDARD TITLE: NURSING TELEPHONE ENCOUNTER TRIA GE NOTE DATE OF NOTE: SEP 29, 2021@15:00:08 ENTRY DATE: SEP 29, 2021@15:03:20 AUTHOR: RONNIE VIGIL EXP COSIGNER: URGENCY: STATUS: COMPLETED VISN 1 CLINICAL CONTACT CENTER Has ADDENDA The patient, MART WALSH ([id number] ) called the call center. The following identifiers were used to verify th is patient: SSN. Contact Type of call: ADMINISTRATIVE. Caller Response: ADM CALL RESOLVED Caller Area: [facility] PC[facility] Provider Info: [facility] ([id number]) PACT: SO PACT 2 (Focus: Primary Care Only) Primary Care Provider: ELEUTERIO ORONA Can Sterilizer: CINDY BAER Clinical Associate: KARRI WRIGHT Auto Vinyl Top Installer: ADAM MATA Clinical POC: Clinical Associate [place] WRIGHT Administrative POC: Auto Vinyl Top Installer ADAM MATA Author: RONNIE VIGIL Comments: Renew med and mail. Imported Information: Medications ACTIVE: DOXAZOSIN MESYLATE 2MG TAB Prescription #:[id number] Prescribing Physician: TOBIAS MONROY (PHYSICIAN) on 06/01/2021 08:22 Frequency/Dosage: 2MG ORAL DAILY ACTIVE: ZAFIRLUKAST 20MG TAB Prescription #:[id number] Prescribing Physician: TOBIAS MONROY (PHYSICIAN) on 06/07/2021 22:37 Fr equency/Dosage: 20MG ORAL BID Evaluation/Management Code: HC PRO PHONE CALL 5- 10 MIN ([id number]). Starting at: 09/29/2021 @ 3:00:08 PM Ending at: 09/29/2021 @ 3:02:00 PM Length: 1 minutes. Chief Complaint: Not applicable to call. Class Code: Other specified counseling. Patient's Email Address: /selam/ RONNIE VIGIL ADVANCED TRAFFIC RECORDER Signed: 09/29/2021 15:03 Receipt Acknowledged By: * AWAITING SIGNATURE * CINDY BAER 10/02/2021 08:46 /selam/ KARRI WRIGHT LPN LPN 10/02/2021 ADDENDUM STATUS: COMPLETED Request for Medication to be renrewed and mail s ent to Provider to fill. /selam/ KARRI WRIGHT LPN LPN Signed: 10/02/2021 08:46
--- OUTSIDE RECORDS SUMMARY | 2022-04-21 09:13 | XMS_ITS | Encounter Summary ---
:1935 Author Organization [facility] Address [address] [place] [address] Support Name Relationship Address Phone BRIAN CHARLES Unavailable [address] [place] [address] BRIAN CHARLES Unavailable [address] [place] [address] BRIAN CHARLES Unavailable [address] [phone] [place] [address] Insurance Providers: All historical and current Section [...] Number [place] ANTHEM MEDIGAP MEDEX Dec 29, [id number] [phone] Anamika WALSH PATIENT BCBS OF CT PLAN C 2001 3 SPEEDY ANTHEM MEDICARE MEDEX Dec 29, [id number] [phone] Anamika AWLSH PATIENT BCBS OF CT SUPPLEMEN BRON 2001 3 SPEEDY [place] MED[place] Dec 29, [id number] [phone] Anamika GONZALES PATIENT SUPPLEMEN BRONZ 2001 4 [place] Dec 29, [id number] [phone] Anamika GONZALES PATIENT SUPPLEMEN BRONZ 2001 4 SPEEDY [place] E BCBS OF MEDICARE PSUED May 31, [id number] [phone] Anaimka GONZALES PATIENT [place] SUPPLEMEN O 1999 3 SPEEDY [place] MEDEX BRONZ E BLUE [place] MEDIGAP MEDEX May 31 [id number] [phone] WHEE LER,R PATIENT BLUE [facility] [place] 1999 [id number] SPEEDY SHIELD [facility] MEDICARE MEDICARE PART October 29, PART B [id number] [phone] WHEELE R,R PATIENT (WNR) (M) B 2001 RC08 2 SPEEDY MEDICARE MEDICARE PART October 29, PART B [id number] [phone] WHEELE R,R PATIENT (WNR) (M) B 2001 85A 00 SPEEDY MEDICARE MEDICARE PART October 29, PART B [id number] [phone] WHEELE R,R PATIENT (WNR) (M) B 2001 RC08 00 SPEEDY MEDICARE MEDICARE PART October 29, PART B [id number] [phone] WHEELE R,R PATIENT (WNR) (M) B 2001 85A 00 SPEEDY MEDICARE MEDICARE PART October 29, PART B [id number] [phone] WHEELE R,R PATIENT (WNR) (M) B 2001 RC08 00 SPE[employer]Y MEDICARE MEDICARE PART May 31, PART A [id number] [phone] WHEELE R,R PATIENT (WNR) (M) A 1999 RC08 2 SPEEDY MEDICARE MEDICARE PART May 31, PART A [id number] [phone] WHEELE R,R PATIENT (WNR) (M) A 1999 85A 00 SPE[employer]Y MEDICARE MEDICARE PART May 31, PART A [id number] [phone] WHEELE R,R PATIENT (WNR) (M) A 1999 RC08 00 SPEEDY MEDICARE MEDICARE PART May 31, PART A [id number] [phone] WHEELE R,R PATIENT (WNR) (M) A 1999 85A 00 SPEEDY MEDICARE MEDICARE PART May 31, PART A [id number] [phone] WHEELE R,R PATIENT (WNR) (M) A 1999 RC08 00 SPEEDY Selected Encounter This section includes the information on record at [place] for the Encounter. Date/Time Encounter Type Encounter Description Reason Provider Source Jul 11, 2021 12:01 Outpatient Encounter PRIMARY CARE/MEDICINE PM [facility] Encounter Template Text not used by [place] Plan of Treatment: Future Appointments (+ 6 months) and Future Tests (+/- 45 days) The Plan of Treatment section includes future care activities for the patient [facility] This section includes future appointments and future orders which are active, pending orscheduled.Future Appointments This section includes appointments that were scheduled to occur 6 months from the date of the Encounter, up to a maximum of 20 appointments. The data comes from all [place] treatment facilities. Appointment Date/Time Appointment Type Appointment Facili ty Name Oct 26, 2021 01:30 PM AMBULATORY - MEDICINE [facility] October 31, 2021 01:30 PM AMBULATORY MEDICINE [facility] November 24, 2021 09:[address] [facility] MEDICINE [place] Social History: Smoking Status (Most current) and Tobacco Use (All prior to encounter date) This section includes the most current, and the historical, smoking and tobacco-related health factors from the [place] facility where the Encounter took place.Current Smoking Status This section includes the most current smoking, or tobacco-related health factor, from the [place] facility where the Encounter took place. Date/Time Current Smoking Status Comment Facility Jul 26, 2020 10:43 AM [place]-TOBACCO FORMER USER [facility] Tobacco Use History This section includes a history of the smoking, or tobacco- related health factors, that were collected on or before the date of the Encounter. The data comes from the [place] facility where the Encounter took place. Date/Time Smoking Status/Tobacco Use Comment Facil it Jul 26, 2020 10:43 AM [place]-TOBACCO QUIT 15 YRS OR [facility] Advance Directives: All historical and current Section Date Range: From patient's date of to the date document was created. This section includes ALL of a patient's completed or amended [place] Advance and Rescinded Directives. The entries below indicate that a directive exists for the patient, but an actual copy is not included with this document. The data comes from all [place] facilities. Date Advance Directives Provider Source May 20, 2006 ADVANCE DIRECTIVE BAYLEE SHUKLA [place] Encounter Notes: All associated encounter notes This section contains the clinical notes associated to the Encounter. Date/Time Encounter Note(s) Provider Source Jul 11, 2021 12:01 PM NURSING NOTE: CINDY BAER [facility] TITLE: NURSING/TELEPHONE STANDARD TITLE: NURSING NOTE DATE OF NOTE: JUL 11, 2021@12:01 ENTRY DATE: JUL 11, 2021@12:01:48 AUTHOR: CINDY BAER COSIGNER: URGENCY: STATUS: COMPLETED Received call from [place] reports that he was treated at [facility] ED for chest pain in mid May 2021. [place] reports that he was started on atorvastatin and metoprolol medications at time of discharge. [place] has had a follow up with non [place] PCP, Song Sheets, who provided him with prescriptions for new medications. reports that he has a follow up scheduled with Cardiology provider in [place] on 07/25/2021. reports that he notices more sob and cou gh with exertion and will discuss with cardiology at follow up appt. Author sent request for records to [facility] enter HIMs via johnnie /selam/ TANYA LUO RN-BC REGISTERED NURSE Signed: 07/11/2021 12:08 Receipt Acknowledged By: * AWAITING SIGNATURE * RADHA LARIOS
--- OUTSIDE RECORDS SUMMARY | 2022-04-21 09:13 | XMS_ITS | Encounter Summary ---
:1935 Author Organization [facility] Address [address] [place] [id number] Support Name Relationship Address Phone BRIAN CHARLES Unavailable [address] [place] [address] BRIAN CHARLES Unavailable [address] [place] [address] BRIAN CHARLES Unavailable [phone] [place] [address] Insurance Providers: All historical and current Section [...] Number [place] ANTHEM MEDIGAP MEDEX Dec 29, [id number] [phone] Anamika WALSH PATIENT BCBS OF CT PLAN C 2001 3 SPEEDY ANTHEM MEDICARE MEDEX Dec 29, [id number] [phone] Anamika WALSH PATIENT BCBS OF CT SUPPLEMEN BRON 2001 3 SPEEDY HERMINIA E BCBS MD MEDICARE MEDEX Dec 29, [id number] [phone] Anamika GONZALES PATIENT SUPPLEMEN BRONZ [id number] SPEEDY HERMINIA E BCBS MD MEDICARE MEDEX Dec 29, [id number] [phone] Anamika GONZALES PATIENT SUPPLEMEN BRONZ 2001 4 SPEEDY HERMINIA E BCBS OF MEDICARE PSUED May 31, [id number] [phone] Anamika GONZALES PATIENT [place] SUPPLEMEN O [id number] 3 SPEEDY HERMINIA MEDEX BRONZ E BLUE CROSS MEDIGAP MEDEX May 31, [id number] [phone] WHEE LER,R PATIENT BLUE [facility] [place] EAST 1999 05 [id number] OBERT SHIELD OF E [place] MEDICARE MEDICARE PART October 29, PART B [id number] [phone] WHEELE R,R PATIENT (WNR) (M) B 2001 RC08 2 OBERT MEDICARE MEDICARE PART October 29, PART B [id number] [phone] WHEELE R,R PATIENT (WNR) (M) B 2001 85A 00 SPEEDY MEDICARE MEDICARE PART October 29, PART B [id number] [phone] WHEELE R,R PATIENT (WNR) (M) B 2001 RC08 00 SPEEDY MEDICARE MEDICARE PART October 29, PART B [id number] [phone] WHEELE R,R PATIENT (WNR) (M) B 2001 85A 00 SPEEDY MEDICARE MEDICARE PART October 29, PART B [id number] [phone] WHEELE R,R PATIENT (WNR) (M) B [address] [facility] MEDICARE MEDICARE PART May 31, PART A [id number] [phone] WHEELE R,R PATIENT (WNR) (M) A 1999 RC08 2 SPEEDY MEDICARE MEDICARE PART May 31, PART A [id number] [phone] WHEELE R,R PATIENT (WNR) (M) A 1999 85A 00 SPEEDY MEDICARE MEDICARE PART May 31, PART A [id number] [phone] WHEELE R,R PATIENT (WNR) (M) A 1999 RC08 00 SPEEDY MEDICARE MEDICARE PART May 31, PART A [id number] [phone] WHEELE R,R PATIENT (WNR) (M) A 1999 85A 00 SPEEDY MEDICARE MEDICARE PART May 31, PART A [id number] [phone] WHEELE R,R PATIENT (WNR) (M) A 1999 RC08 SPEEDY Selected Encounter This section includes the information on record at [place] for the Encounter. Date/Time Encounter Type Encounter Description Reason Provider Source Jun 20, 2021 10:25 Outpatient Encounter TELEPHONE TRIAGE AM IHE Encounter Template Text not used by [facility] Plan of Treatment: Future Appointments (+ 6 months) and Future Tests (+/- 45 days) The Plan of Treatment section includes future care activities for the patient from all [place] treatmentfaatrium healthities. This section includes future appointments and future orders which are active, pending orscheduled.Future Appointments This section includes appointments that were scheduled to occur 6 months from the date of the Encounter, up to a maximum of 20 appointments. The data comes from all [place] treatment facilities. Appointment Date/Time Appointment Type Appointment Facili ty Name Oct 26, 2021 01:30 PM [facility]ATORY [facility] October 31, 2021 01:30 PM [facility]ORY [facility] November 24, 2021 09:00 AM AMBULATORY MEDICINE [facility] Lab Results: +/- 30 days of the encounter This section includes the Chemistry and Hematology Lab Results on record with [place] for the patient. Radiology Reports and Pathology Reports are provided separately, in subsequent sections.Lab Results This section contains the Chemistry/Hematology Results that were resulted 30 days before or 30 daysafter the date of the Encounter. Date/Time Source Result Type Result - Unit Interpretation Reference Range Comment May 31, 2021 07:19 AM [facility] LIPID PANEL FASTING Speci men Type: SERUM No comment enter ed. Ordering Provid er: SHREE MONROY Report Released Date/Time: Mar 30, 2021 09:20 AM Reporting Lab: [address] [address] Performing Lab: [address] [address] CHOLESTEROL 144 0-199 TRIGLYCERIDE 93 0-150 LDL calculated 89 0-129 CHOL/HDL 4.0 HDL CHOLESTEROL 36 L 40-60 May 31, 2021 07:19 AM [facility] LIVER FUNCTION Specimen Type: SERUM No comment enter ed. Ordering Provid er: SHREE MONROY Report Released Date/Time: Mar 30, 2021 09:20 AM Reporting Lab: [address] [address] Performing Lab: [address] [address] PROTEIN,TOTAL 6.4 6.0-8.3 ALBUMIN 3.4 L 3.5-5.0 ALKALINE PHOSPHATASE 78 40-150 AST 13 5-34 ALT 15 0-55 BILIRUBIN, TOTAL 0.4 0.2-1.2 May 31, 2021 07:19 AM [facility] HEMOGLOBIN A1C PANEL Spec imen Type: BLOOD Comment: Testin g performed by [facility] certified Rain Enzymatic with CV <2%. The Rain HgA1C assay should not be used to diagnose or monitor diabetes in patients with altered red cell lifespan such a s homozygous hem oglobin variants, Hb SC, HbF>5% and hemolytic anemia. Heterozygous variants do not affect this assay, HbAS, HbAC, HbAD, HbAE, AbA2 Ordering Provid er: SHREE MONROY Report Released Date/Time: Mar 30, 2021 09:20 AM Reporting Lab: [address] [address] Performing Lab: [address] [address] HEMOGLOBIN A1C 6.5 H 4.0-5.6 May 31, 2021 07:19 AM [facility] BASIC METABOLIC PANEL Spe cimen Type: SERUM (fasting) No comment enter ed. Ordering Provid er: SHREE MONROY Report Released Date/Time: Mar 30, 2021 09:20 AM Reporting Lab: [facility] [address] [facility] [address] Performing Lab: [address] [address] UREA NITROGEN 33 H 7-25 GLUCOSE 160 H 65-100 SODIUM 137 135-145 POTASSIUM 5.1 H 3.5-5.0 CHLORIDE 105 100-110 CO2 21 20-30 CREATININE, Serum 1.46 H 0.50-1.40 eGFR (IDMS) 46 L >60 May 31, 2021 07:19 AM [facility] TSH Specimen Type: SERUM No comment enter ed. Ordering Provid er: SHREE MONROY Report Released Date/Time: Mar 30, 2021 09:20 AM Reporting Lab: [address] [address] Performing Lab: [address] [place] [address] TSH 1.76 0.35-5.00 May 31, 2021 07:19 AM [facility] VITAMIN B12 Specimen Type: SERUM No comment enter ed. Ordering Provid er: SHREE MONROY Report Released Date/Time: Mar 30, 2021 09:20 AM Reporting Lab: [facility] [address] [facility] [address] Performing Lab: [address] [address] VITAMIN B12 256 200-900 May 31, 2021 07:19 [facility] MICROALBUMIN CREATININE Spec imen Type: URINE AM RATIO PANEL No comment enter ed. Ordering Provid er: SHREE MONROY Report Released Date/Time: Mar 30, 2021 09:20 AM Reporting Lab: [address] [address] Performing Lab: [address] [address] MICROALBUMIN/CREATININE RATIO 780.6 H 0-29.9 MICROALBUMIN,QUANTITATIVE 68.3 RR U NAVAIL CREATININE URINE 87.50 May 31, 2021 07:19 AM [facility] CBC AND DIFF (AUTO) Speci men Type: BLOOD No comment enter ed. Ordering Provid er: SHREE MONROY Report Released Date/Time: Mar 30, 2021 09:20 AM Reporting Lab: [facility] [address] [facility] [address] Performing Lab: [facility] [address] [address] WBC 10.39 4.50-11.00 RBC 3.73 L 4.23-5.66 HGB 11.7 L 12.8-17 HCT 35.6 L 39.2-50.4 MCV 95.4 82-99 MCHC 32.9 30.8-35.1 PLT 397 H 140-360 RDW-CV 14.1 12.0-16.0 [place], Abs 0.99 0.30-1.10 MCH 31.4 26.2-32.6 Neut % 55.8 Lymph % 26.9 [place] % 9.5 Eos % 6.4 Baso % 0.7 Neut, Abs 5.80 2.20-7.60 Lymph, Abs 2.80 1.00-3.20 Eos, Abs 0.66 H 0.03-0.44 Baso, Abs 0.07 0.01-0.13 Immature Gran % 0.7 Immature Gran, Abs 0.07 H 0.00-0.06 May 31, 2021 07:19 AM [facility] URINALYSIS Specimen Type: URINE Comment: A posi tive ascorbic acid indicates possible interferences with blood, glucose, nitrite and bilirubin. Ordering Provid er: SHREE MONROY Report Released Date/Time: Mar 30, 2021 09:20 AM Reporting Lab: [address] [address] Performing Lab: [address] [address] UA COLOR Yellow Yellow UA APPEARANCE Clear Clear UA GLUCOSE Negative Negative UA KETONES Negative Neg UA BLOOD Negative Neg UA PROTEIN 100 Neg UA NITRITE Negative Neg UA BILIRUBIN Negative Neg UA SPECIFIC GRAVITY 1.017 1.016-1.02 2 UA pH 5.0 5.0-9.0 UA UROBILINOGEN <2.0 <2.0 UA LEUKOCYTE ESTERASE Negative Neg May 31, 2021 07:19 [facility] MICROSCOPIC AUTOMATED, Speci men Type: URINE AM URINE Comment: A posi tive ascorbic acid indicates possible interferences with blood, glucose, nitrite and bilirubin. Ordering Provid er: SHREE MONROY Report Released Date/Time: Mar 30, 2021 09:20 AM Reporting Lab: [address] [address] Performing Lab: [address] [address] UA WBC 0-5 0-5 UA MUCUS FEW Trace UA RBC 0-2 0-3 UA SQUAMOUS EPITH FEW May 31, 2021 07:19 AM [facility] ETG SCREEN (wx) Specimen Type: URINE Comment: MARY te st are qualitative, any L or H flags only indicate a [facility] alert was sent. This ETG test was developed and its performance characteristics determined by [place] clinical lab. The [place] Food and Helder g Administration has not approved or cleared this test, FDA clearance or approval is not currently required for clinical use. ETG cutoff 500 ng/mL Ordering Provid er: SHREE MONROY Report Released Date/Time: Apr 04, 2021 09:34 AM Reporting Lab: [address] [address] Performing Lab: [facility] [address] [facility] [place] [address] ETG SCREEN (wx) Negative L Negative May 31, 2021 07:19 AM [facility] METHADONE SCREEN Specimen Type: URINE Comment: MARY te st are qualitative, any L or H flags only indicate a [place] alert was sent. Ordering Provid er: SHREE MONROY Report Released Date/Time: Apr 04, 2021 09:34 AM Reporting Lab: [address] [address] Performing Lab: [facility] [address] [facility] [place] [address] METHADONE SCREEN None detected(Negative) L Negative May 31, 2021 07:19 AM [facility] ALCOHOL, ETHYL URINE Spec imen Type: URINE PANEL Comment: Urine with Cr <5 is diluted or substituted. Cr between 5 and 20 is very dilute. Urine with SG of 1.001 or less is diluted or substituted. SG of 1.003 or less is very dilute. Urine with a pH <3 or >11 has b een adulterated and is unsuitable for testing by our current method. Urine with pH between 3 and 4 OR 10 and 11 may have been adulterated. Ordering Provid er: SHREE MONROY Report Released Date/Time: Apr 04, 2021 09:34 AM Reporting Lab: [address] [address] Performing Lab: [address] [address] ALCOHOL, ETHYL URINE NONE-DETECTED NONE- DETECTED, cutoff = 10 mg/dL PH, MARY 5.9 4-10 CREATININE, MARY 88.10 >20 SP.GRAVITY, MARY 1.017 1.003-1.020 May 31, 2021 07:19 AM [facility] FENTANYL SCREEN PANEL Spe cimen Type: URINE Comment: Urine with Cr <5 is diluted or substituted. Cr between 5 and 20 is very dilute. Urine with SG of 1.001 or less is diluted or substituted. SG of 1.003 or less is very dilute. Urine with a pH <3 or >11 has b een adulterated and is unsuitable for testing by our current method. Urine with pH between 3 and 4 OR 10 and 11 may have been adulterated. Ordering Provid er: SHREE MONROY Report Released Date/Time: Apr 04, 2021 09:34 AM Reporting Lab: [address] [address] Performing Lab: [address] [address] FENTANYL SCREEN NONE-DETECTED Negative: Cutoff = 1.00 ng/mL PH, MARY 5.9 4-10 CREATININE, MARY 85.35 >20 SP.GRAVITY, MARY 1.017 1.003-1.020 May 31, 2021 07:19 [facility] AMPHETAMINES SCREEN PANEL Sp ecimen Type: URINE AM Comment: Urine with Cr <5 is diluted or substituted. Cr between 5 and 20 is very dilute. Urine with SG of 1.001 or less is diluted or substituted. SG of 1.003 or less is very dilute. Urine with a pH <3 or >11 has b een adulterated and is unsuitable for testing by our current method. Urine with pH between 3 and 4 OR 10 and 11 may have been adulterated. Ordering Provid er: SHREE MONROY Report Released Date/Time: Apr 04, 2021 09:34 AM Reporting Lab: [address] [address] Performing Lab: [address] [address] AMPHETAMINES SCREEN NONE-DETECTED None-D etected, Cutoff = 1000 ng/mL PH, MARY 5.9 4-10 CREATININE, MARY 88.10 >20 SP.GRAVITY, MARY 1.017 1.003-1.020 May 31, 2021 07:19 [facility] BENZODIAZEPINES SCREEN PANEL Specimen Type: URINE AM Comment: Urine with Cr <5 is diluted or substituted. Cr between 5 and 20 is very dilute. Urine with SG of 1.001 or less is diluted or substituted. SG of 1.003 or less is very dilute. Urine with a pH <3 or >11 has b een adulterated and is unsuitable for testing by our current method. Urine with pH between 3 and 4 OR 10 and 11 may have been adulterated. Ordering Provid er: SHREE MONROY Report Released Date/Time: Apr 04, 2021 09:34 AM Reporting Lab: [facility] [address] [facility] [address] Performing Lab: [address] [address] BENZODIAZEPINES SCREEN NONE-DETECTED Non e-Detected, Cutoff = 200 ng/mL PH, MARY 5.9 4-10 CREATININE, MARY 88.10 >20 SP.GRAVITY, MARY 1.017 1.003-1.020 May 31, 2021 07:19 [facility] BUPRENORPHINE SCREEN PANEL S pecimen Type: URINE AM Comment: Urine with Cr <5 is diluted or substituted. Cr between 5 and 20 is very dilute. Urine with SG of 1.001 or less is diluted or substituted. SG of 1.003 or less is very dilute. Urine with a pH <3 or >11 has b een adulterated and is unsuitable for testing by our current method. Urine with pH between 3 and 4 OR 10 and 11 may have been adulterated. Ordering Provid er: SHREE MONROY Report Released Date/Time: Apr 04, 2021 09:34 AM Reporting Lab: [facility] [address] [facility] [address] Performing Lab: [address] [address] BUPRENORPHINE (URINE) NONE-DETECTED None Detected, Cutoff = 10.0 ng/mL PH, MARY 5.9 4-10 CREATININE, MARY 88.10 >20 SP.GRAVITY, MARY 1.017 1.003-1.020 May 31, 2021 07:19 AM [facility] OPIATES SCREEN PANEL Spec imen Type: URINE Comment: Urine with Cr <5 is diluted or substituted. Cr between 5 and 20 is very dilute. Urine with SG of 1.001 or less is diluted or substituted. SG of 1.003 or less is very dilute. Urine with a pH <3 or >11 has b een adulterated and is unsuitable for testing by our current method. Urine with pH between 3 and 4 OR 10 and 11 may have been adulterated. Ordering Provid er: SHREE MONROY Report Released Date/Time: Apr 04, 2021 09:34 AM Reporting Lab: [facility] [address] [facility] [address] Performing Lab: [address] [address] OPIATES SCREEN NONE-DETECTED None-Detect ed, Cutoff = 300 ng/mL PH, MARY 5.9 4-10 CREATININE, MARY 88.10 >20 SP.GRAVITY, MARY 1.017 1.003-1.020 May 31, 2021 07:19 AM [facility] COCAINE SCREEN PANEL Spec imen Type: URINE Comment: Urine with Cr <5 is diluted or substituted. Cr between 5 and 20 is very dilute. Urine with SG of 1.001 or less is diluted or substituted. SG of 1.003 or less is very dilute. Urine with a pH <3 or >11 has b een adulterated and is unsuitable for testing by our current method. Urine with pH between 3 and 4 OR 10 and 11 may have been adulterated. Ordering Provid er: SHREE MONROY Report Released Date/Time: Apr 04, 2021 09:34 AM Reporting Lab: [facility] [address] [facility] [address] Performing Lab: [address] [address] COCAINE SCREEN NONE-DETECTED None-Detect ed,Cutoff = 300 ng/mL PH, MARY 5.9 4-10 CREATININE, MARY 88.10 >20 SP.GRAVITY, MARY 1.017 1.003-1.020 May 31, 2021 07:19 [facility] CANNABINOIDS SCREEN PANEL Sp ecimen Type: URINE AM Comment: Urine with Cr <5 is diluted or substituted. Cr between 5 and 20 is very dilute. Urine with SG of 1.001 or less is diluted or substituted. SG of 1.003 or less is very dilute. Urine with a pH <3 or >11 has b een adulterated and is unsuitable for testing by our current method. Urine with pH between 3 and 4 OR 10 and 11 may have been adulterated. Ordering Provid er: SHREE MONROY Report Released Date/Time: Apr 04, 2021 09:34 AM Reporting Lab: [facility] [address] [facility] [address] Performing Lab: [facility] [address] [facility] [address] CANNABINOIDS SCREEN NONE-DETECTED None-D etected,Cutoff = 50 ng/mL PH, MARY 5.9 4-10 CREATININE, MARY 88.10 >20 SP.GRAVITY, MARY 1.017 1.003-1.020 May 31, 2021 07:19 AM [facility] OXYCODONE SCREEN PANEL Sp ecimen Type: URINE Comment: Urine with Cr <5 is diluted or substituted. Cr between 5 and 20 is very dilute. Urine with SG of 1.001 or less is diluted or substituted. SG of 1.003 or less is very dilute. Urine with a pH <3 or >11 has b een adulterated and is unsuitable for testing by our current method. Urine with pH between 3 and 4 OR 10 and 11 may have been adulterated. Ordering Provid er: SHREE MONROY Report Released Date/Time: Apr 04, 2021 09:34 AM Reporting Lab: [facility] [address] [facility] [address] Performing Lab: [facility] [address] [facility] [address] OXYCODONE SCREEN NONE-DETECTED None-Dete cted, Cutoff = 100 ng/mL PH, MARY 5.9 4-10 CREATININE, MARY 88.10 >20 SP.GRAVITY, MARY 1.017 1.003-1.020 Social History: Smoking Status (Most current) and Tobacco Use (All prior to encounter date) This section includes the most current, and the historical, smoking and tobacco-related health factors from the [place] facility where the Encounter took place.Current Smoking Status This section includes the most current smoking, or tobacco-related health factor, from the [place] facility where the Encounter took place. Date/Time Current Smoking Status Comment Facility Jul 26, 2020 10:43 AM [place]-TOBACCO FOR[facility] USER [facility] Tobacco Use History This section includes a history of the smoking, or tobacco- related health factors, that were collected on or before the date of the Encounter. The data comes from the [place] facility where the Encounter took place. Date/Time Smoking Status/Tobacco Use Comment [facility] it Jul 26, 2020 10:43 AM IN-TOBACCO QUIT 15 YRS OR IN [facility] [place] [facility] Advance Directives: All historical and current Section Date Range: From patient's date of to the date document was created. This section includes ALL of a patient's completed or amended [place] Advance and Rescinded Directives. The entries below indicate that a directive exists for the patient, but an actual copy is not included with this document. The data comes from all [place] facilities. Date Advance Directives Provider Source May 20, 2006 ADVANCE DIRECTIVE BAYLEE SHUKLA [facility] Encounter Notes: All associated encounter notes This section contains the clinical notes associated to the Encounter. Date/Time Encounter Note(s) Provider Source Jun 20, 2021 10:25 AM TELEPHONE ENCOUNTER NOTE: CHUCK VIGIL [facility] LOCAL TITLE: VISN 1 CCC ACTION REQUIRED [facility] STANDARD TITLE: TELEPHONE ENCOUNTER NOTE DATE OF NOTE: JUN 20, 2021@10:25:20 ENTRY DATE: JUN 20, 2021@10:27:12 AUTHOR: CHUCK VIGIL EXP COSIGNER: URGENCY: STATUS: COMPLETED The patient, MART WALSH ([id number] ) called the call center. The following identifiers were used to verify th is patient: . SSN. Contact Type of call: PHARMACY. Caller Response: ADM CALL RESOLVED Caller Area: [facility] Provider Info: LOCAL [facility] ([id number]) PACT: SO PACT 2 (Focus: Primary Care Only) Primary Care Provider: Shree Monroy PHONE:[phone] Manager Integrated: Cindy Phillips Clinical Associate: Vita Calero Application Internship: Clinton Gomez Clinical POC: Clinical Associate Desmond Calero Administrative POC: Application Internship Clinton Gomez Author: CHUCK VIGIL Comments: Lanett was recently discharged from [facility]. He called requesting to speak to RN about new medications. Kindly call back [phone]. Evaluation/Management Code: HC PRO PHONE CALL 5- 10 MIN ([id number]). Starting at: 06/20/2021 @ 10:25:20 AM Ending at: 06/20/2021 @ 10:26:26 AM Length: 1 minutes. Chief Complaint: Not applicable to call. Class Code: Other specified counseling. Patient's Email Address: /selam/ CHUCK VIGIL [facility] Signed: 06/20/2021 10:27 Receipt Acknowledged By: * AWAITING SIGNATURE * CINDY PHILLIPS * AWAITING SIGNATURE * VITA CALERO
--- OUTSIDE RECORDS SUMMARY | 2022-04-21 09:13 | XMS_ITS | Encounter Summary ---
:1935 Author Organization [facility] Address [address] [place] [address] Support Name Relationship Address Phone BRIAN CHARLES Unavailable [address] [place] [address] BRIAN CHARLES Unavailable [address] [place] [address] BRIAN CHARLES Unavailable [address] [phone] [place] [address] Insurance Providers: All historical and current Section [...] Number Stinson ANTHEM MEDIGAP MEDEX Dec 29, [id number] [phone] Anamika WALSH PATIENT BCBS OF CT PLAN C 2001 3 SPEEDY ANTHEM MEDICARE MEDEX Dec 29, [id number] [phone] Anamika WALSH PATIENT BCBS OF CT SUPPLEMEN BRON 2001 3 SPEEDY [place] E BCBS [place] MEDICARE MEDEX Dec 29, [id number] [phone] Anamika GONZALES PATIENT SUPPLEMEN BRONZ 2001 4 SPE[place]Y [place] E BCBS [place] MEDIC[place] MEDEX Dec 29, [id number] [phone] Anamika GONZALES PATIENT SUPPLEMEN BRONZ 2001 4 SPEEDY [place] E BCBS OF MEDICARE PSUED May 31, [id number] [phone] Anamika GONZALES PATIENT MASS SUPPLEMEN O 1999 3 SPEEDY [place] MEDEX BRONZ E BLUE CROSS MEDIGAP MEDEX May 31 [id number] [phone] WHEE LER,R PATIENT BLUE [facility] [place] 1999 05 [id number] 4 SPEEDY SHIELD [facility] MEDICARE MEDICARE PART October 29, PART B [id number] [phone] WHEELE R,R PATIENT (WNR) (M) B 2001 RC08 2 SPEEDY MEDICARE MEDICARE PART October 29, PART B [id number] [phone] WHEELE R,R PATIENT (WNR) (M) B 2001 85A 00 SPEEDY MEDICARE MEDICARE PART October 29, PART B [id number] [phone] WHEELE R,R PATIENT (WNR) (M) B 2001 RC08 00 SPEEDY MEDICARE MEDICARE PART October 29, PART B [id number] [phone] WHEELE R,R PATIENT (WNR) (M) B 2001 85A 00 SPEEDY MEDICARE MEDICARE PART October 29, PART B [id number] [phone] WHEELE R,R PATIENT (WNR) (M) B 2001 RC08 00 SPEEDY MEDICARE MEDICARE PART May 31, PART A [id number] [phone] WHEELE R,R PATIENT (WNR) (M) A 1999 RC08 2 SPEEDY MEDICARE MEDICARE PART May 31, PART A [id number] [phone] WHEELE R,R PATIENT (WNR) (M) A 1999 85A 00 SPEEDY MEDICARE MEDICARE PART May 31, PART A [id number] [phone] WHEELE R,R PATIENT (WNR) (M) A 1999 RC08 00 SPEEDY MEDICARE MEDICARE PART May 31, PART A [id number] [id number] WHEELE R,R PATIENT (WNR) (M) A 1999 85A 00 SPEEDY MEDICARE MEDICARE PART May 31, PART A [id number] [id number] WHEELE R,R PATIENT (WNR) (M) A 1999 RC08 00 SPEEDY Selected Encounter This section includes the information on record at [place] for the Encounter. Date/Time Encounter Type Encounter Description Reason Provider Source Aug 01, 2021 10:53 Outpatient Encounter PRIMARY CARE/MEDICINE AM IHE Encounter Template Text not used by [place] Plan of Treatment: Future Appointments (+ 6 months) and Future Tests (+/- 45 days) The Plan of Treatment section includes [facility] care activities for the [facility] This section includes future appointments and future orders which are active, pending orscheduled.Future Appointments This section includes appointments that were scheduled to occur 6 months from the date of the Encounter, up to a maximum of 20 appointments. The data comes from all [place] treatment facilities. Appointment Date/Time Appointment Type Appointment Facili ty Name Oct 26, 2021 01:30 PM AMBULATORY MEDICINE [facility] October 31, 2021 01:30 PM [facility] MEDICINE [facility] November 24, 2021 09:00 AM AMBULATORY MEDICINE [place] Social History: Smoking Status (Most current) and [...] Comment Facility Jul 26, 2020 10:43 [facility] Tobacco Use History This section includes a history of the smoking, or tobacco- related health factors, that were collected on or before the date of the Encounter. The data comes from the [place] facility where the Encounter took place. Date/Time Smoking Status/Tobacco Use Comment [facility] Jul 26, 2020 10:43 AM [facility] Advance Directives: All historical and current Section Date Range: From patient's date of to the date document was created. This section includes ALL of a patient's completed or amended [place] Advance and Rescinded Directives. The entries below indicate that a directive exists for the patient, but an actual copy is not included with this document. The data comes from all [place] facilities. Date Advance Directives Provider Source May 20, 2006 ADVANCE DIRECTIVE BAYLEE SHUKLA [place] Encounter Notes: All associated encounter notes This section contains the clinical notes associated to the Encounter. Date/Time Encounter Note(s) Provider Source Aug 01, 2021 10:53 AM NURSING NOTE: CINDY BAER [facility] TITLE: NURSING/TELEPHONE STANDARD TITLE: NURSING NOTE DATE OF NOTE: AUG 01, 2021@10:53 ENTRY DATE: AUG 01, 2021@10:53:31 AUTHOR: CINDY BAER EXP COSIGNER: URGENCY: STATUS: COMPLETED Called [facility] and he requested to revie w med list which was done with author. Temple reports that he cont inues to note sob with moderate exertion like using stairs or taking shower. reports that wh en out of breath he becomes wheezy and he has noticed productive cou gh with phlegm that is light yellow that is thick. reports th at he has difficulty going outside due to shortness of breath with very cold temperatur es. Temple reports that he has next appt with non V A provider Dr Sheets next week and will follow up with him at that time. Author advised Temple to utilize sick call clinic at [facility] if symptoms exacerbate or feels he needs urgent assessment by a provider. /selam/ CARMINE LUON RN-BC REGISTERED NURSE Signed: 08/02/2021 07:51
--- OUTSIDE RECORDS SUMMARY | 2022-04-21 09:13 | XMS_ITS | Encounter Summary ---
:1935 Author Organization Department [facility] Address [address] [place] [phone] Support Name Relationship Address Phone BRIAN CHARLES Unavailable [address] [place] [address] BRIAN CHARLES Unavailable [address] [place] [address] BRIAN CHARLES Unavailable [address] [phone] [place] [address] Insurance Providers: All historical and current Section [...] Number Stinson ANTHEM MEDIGAP MEDEX Dec 29, [id number] [phone] Anamika WALSH PATIENT BCBS OF CT PLAN C 2001 3 SPEEDY ANTHEM MEDICARE MEDEX Dec 29, [id number] [phone] Anamika WALSH PATIENT BCBS OF CT SUPPLEMEN BRON 2001 3 SPEED[place] E BCBS [place] MEDICARE MEDEX Dec 29, [id number] [phone] Anamika GONZALES PATIENT SUPPLEMEN BRONZ 2001 4 SPEED[place] MEDIC[place] MED[place] Dec 29, [id number] [phone] Anamika GONZALES PATIENT SUPPLEMEN BRONZ 2001 4 SPEEDY HER[place] E BCBS OF MEDICARE PSUED May 31, [id number] [phone] Anamika GONZALES PATIENT MASS SUPPLEMEN O 1999 3 SPEEDY [place] MEDEX BRONZ E BLUE CROSS MEDIGAP MEDEX May 31 [id number] [phone] WHEE LER,R PATIENT BLUE [facility] [place] 1999 05 [id number] 4 SPEEDY SHIELD [facility] MEDICARE MEDICARE PART October 29, PART B [id number] WHEELE R,R PATIENT (WNR) (M) B 2001 RC08 2 SPEEDY MEDICARE MEDICARE PART October 29, PART B [id number] [id number] WHEELE R,R PATIENT (WNR) (M) B 2001 85A 00 SPEEDY MEDICARE MEDICARE PART October 29, PART B [id number] [id number] WHEELE R,R PATIENT (WNR) (M) B 2001 RC08 00 SPEEDY MEDICARE MEDICARE PART October 29, PART B [id number] [phone] WHEELE R,R PATIENT (WNR) (M) B 2001 85A 00 SPEEDY MEDICARE MEDICARE PART October 29, PART B [id number] [phone] WHEELE R,R PATIENT (WNR) (M) B 2001 RC08 00 SPEEDY MEDICARE MEDICARE PART May 31, PART A [id number] WHEELE R,R PATIENT (WNR) (M) A 1999 RC08 2 SPEEDY MEDICARE MEDICARE PART May 31, PART A [id number] [phone] WHEELE R,R PATIENT (WNR) (M) A 1999 85A 00 SPEEDY MEDICARE MEDICARE PART May 31, PART A [id number] [phone] WHEELE R,R PATIENT (WNR) (M) A 1999 RC08 00 SPEEDY MEDICARE MEDICARE PART May 31, PART A [id number] [phone] WHEELE R,R PATIENT (WNR) (M) A 1999 85A 00 SPEEDY MEDICARE MEDICARE PART May 31, PART A [id number] [phone] WHEELE R,R PATIENT (WNR) (M) A 1999 RC08 00 SPEEDY Selected Encounter This section includes the information on record at [place] for the Encounter. Date/Time Encounter Type Encounter Description Reason Provider Source 2021 12:00 Outpatient Encounter EVENT (HISTORICAL) AM IHE Encounter Template Text not used by [facility] Plan of Treatment: Future Appointments (+ 6 months) and Future Tests (+/- 45 days) The Plan of Treatment section includes future care activities for the patient from all [place] treatmentfacilities. This section includes future appointments and future orders which are active, pending orscheduled.Future Appointments This section includes appointments that were scheduled to occur 6 months from the date of the Encounter, up to a maximum of 20 appointments. The data comes from all [place] treatment facilities. Appointment Date/Time Appointment Type Appointment Facili ty Name Oct 26, 2021 01:30 PM AMBULATORY - MEDICINE [facility] October 31, 2021 01:30 PM [facility] MEDIC[facility] November 24, 2021 09:00 AM [facility]IC[facility] [place] Lab Results: +/- 30 days of the encounter This section includes the Chemistry and Hematology Lab Results on record with [place] for the patient. Radiology Reports and Pathology Reports are provided separately, in subsequent sections.Lab Results This section contains the Chemistry/Hematology Results that were resulted 30 days before or 30 daysafter the date of the Encounter. Date/Time Source Result Type Result - Unit Interpretation Reference Range Comment May 31, 2021 07:19 AM [place] LIPID PANEL FASTING Speci men Type: SERUM No comment enter ed. Ordering Provid er: TOBIAS MONROY Report Released Date/Time: Mar 30, 2021 09:20 AM Reporting Lab: [address] [address] Performing Lab: [address] [address] CHOLESTEROL 144 0-199 TRIGLYCERIDE 93 0-150 LDL calculated 89 0-129 CHOL/HDL 4.0 HDL CHOLESTEROL 36 L 40-60 May 31, 2021 07:19 AM [place] HEMOGLOBIN A1C PANEL Spec imen Type: BLOOD [...] HbAC, HbAD, HbAE, AbA2 Ordering Provid er: TOBIAS MONROY Report Released Date/Time: Mar 30, 2021 09:20 AM Reporting Lab: [facility] [place] [place] [facility] [address] [facility] [address] Performing Lab: [facility] [place] [facility] [address] [facility] [address] HEMOGLOBIN A1C 6.5 H 4.0-5.6 May 31, 2021 07:19 AM [place] BASIC METABOLIC PANEL Spe cimen Type: SERUM (fasting) No comment enter ed. Ordering Provid er: TOBIAS MONROY Report Released Date/Time: Mar 30, 2021 09:20 AM Reporting Lab: [facility] [address] [facility] [address] Performing Lab: [facility] [address] [facility] [address] UREA NITROGEN 33 H 7-25 GLUCOSE 160 H 65-100 SODIUM 137 135-145 POTASSIUM 5.1 H 3.5-5.0 CHLORIDE 105 100-110 CO2 21 20-30 CREATININE, Serum 1.46 H 0.50-1.40 eGFR (IDMS) 46 L >60 May 31, 2021 07:19 AM [place] LIVER FUNCTION Specimen Type: SERUM No comment enter ed. Ordering Provid er: TOBIAS MONROY Report Released Date/Time: Mar 30, 2021 09:20 AM Reporting Lab: [facility] [place] [facility] [address] [facility] [address] Performing Lab: [facility] [address] [facility] [address] PROTEIN,TOTAL 6.4 6.0-8.3 ALBUMIN 3.4 L 3.5-5.0 ALKALINE PHOSPHATASE 78 40-150 AST 13 5-34 ALT 15 0-55 BILIRUBIN, TOTAL 0.4 0.2-1.2 May 31, 2021 07:19 AM [place] TSH Specimen Type: SERUM No comment enter ed. Ordering Provid er: TOBIAS MONROY Report Released Date/Time: Mar 30, 2021 09:20 AM Reporting Lab: [facility] [place] [facility] [address] [facility] [address] Performing Lab: [facility] [address] [facility] [address] TSH 1.76 0.35-5.00 May 31, 2021 07:19 AM [place] VITAMIN B12 Specimen Type: SERUM No comment enter ed. Ordering Provid er: TOBIAS MONROY Report Released Date/Time: Mar 30, 2021 09:20 AM Reporting Lab: [facility] [address] [facility] [address] Performing Lab: [address] [address] VITAMIN B12 256 200-900 May 31, 2021 07:19 [place] MICROALBUMIN CREATININE Spec imen Type: URINE AM RATIO PANEL No comment enter ed. Ordering Provid er: TOBIAS MONROY Report Released Date/Time: Mar 30, 2021 09:20 AM Reporting Lab: [address] [address] Performing Lab: [address] [address] MICROALBUMIN/CREATININE RATIO 780.6 H 0-29.9 MICROALBUMIN,QUANTITATIVE 68.3 RR U NAVAIL CREATININE URINE 87.50 May 31, 2021 07:19 AM [place] URINALYSIS Specimen Type: URINE Comment: A posi tive ascorbic acid indicates possible interferences with blood, glucose, nitrite and bilirubin. Ordering Provid er: TOBIAS MONROY Report Released Date/Time: Mar 30, 2021 09:20 AM Reporting Lab: [facility] [address] [facility] [address] Performing Lab: [address] [address] UA COLOR Yellow Yellow UA APPEARANCE Clear Clear UA GLUCOSE Negative Negative UA KETONES Negative Neg UA BLOOD Negative Neg UA PROTEIN 100 Neg UA NITRITE Negative Neg UA BILIRUBIN Negative Neg UA SPECIFIC GRAVITY 1.017 1.016-1.02 2 UA pH 5.0 5.0-9.0 UA UROBILINOGEN <2.0 <2.0 UA LEUKOCYTE ESTERASE Negative Neg May 31, 2021 07:19 AM [place] CBC AND DIFF (AUTO) Speci men Type: BLOOD No comment enter ed. Ordering Provid er: TOBIAS MONROY Report Released Date/Time: Mar 30, 2021 09:20 AM Reporting Lab: [facility] [address] [facility] [address] Performing Lab: [facility] [address] [facility] [address] WBC 10.39 4.50-11.00 RBC 3.73 L 4.23-5.66 HGB 11.7 L 12.8-17 HCT 35.6 L 39.2-50.4 MCV 95.4 82-99 MCHC 32.9 30.8-35.1 PLT 397 H 140-360 RDW-CV 14.1 12.0-16.0 Ransom, Abs 0.99 0.30-1.10 MCH 31.4 26.2-32.6 Neut % 55.8 Lymph % 26.9 Ransom % 9.5 Eos % 6.4 Baso % 0.7 Neut, Abs 5.80 2.20-7.60 Lymph, Abs 2.80 1.00-3.20 Eos, Abs 0.66 H 0.03-0.44 Baso, Abs 0.07 0.01-0.13 Immature Gran % 0.7 Immature Gran, Abs 0.07 H 0.00-0.06 May 31, 2021 07:19 [place] MICROSCOPIC AUTOMATED, Speci men Type: URINE AM URINE Comment: A posi tive ascorbic acid indicates possible interferences with blood, glucose, nitrite and bilirubin. Ordering Provid er: TOBIAS MONROY Report Released Date/Time: Mar 30, 2021 09:20 AM Reporting Lab: [facility] [address] [facility] [address] Performing Lab: [address] [address] UA WBC 0-5 0-5 UA MUCUS FEW Trace UA RBC 0-2 0-3 UA SQUAMOUS EPITH FEW May 31, 2021 07:19 AM [place] ETG SCREEN (wx) Specimen Type: URINE Comment: MARY te st are qualitative, any L or H flags only indicate a [facility] alert was sent. This ETG test was developed and its performance characteristics determined by [place] clinical lab. The [place] Food and Helder g Administration has not approved or cleared this test, FDA clearance or approval is not currently required for clinical use. ETG cutoff 500 ng/mL Ordering Provid er: TOBIAS MONROY Report Released Date/Time: Apr 04, 2021 09:34 AM Reporting Lab: [address] [address] Performing Lab: [facility] [address] [facility] [address] ETG SCREEN (wx) Negative L Negative May 31, 2021 07:19 AM [place] METHADONE SCREEN Specimen Type: URINE Comment: MARY te st are qualitative, any L or H flags only indicate a [place] alert was sent. Ordering Provid er: TOBIAS MONROY Report Released Date/Time: Apr 04, 2021 09:34 AM Reporting Lab: [address] [address] Performing Lab: [facility] [address] [facility] [address] METHADONE SCREEN None detected(Negative) L Negative May 31, 2021 07:19 AM [place] ALCOHOL, ETHYL URINE Spec imen Type: URINE [...] may have been adulterated. Ordering Provid er: TOBIAS MONROY Report Released Date/Time: Apr 04, 2021 09:34 AM Reporting Lab: [address] [address] Performing Lab: [address] [address] ALCOHOL, ETHYL URINE NONE-DETECTED NONE- DETECTED, cutoff = 10 mg/dL PH, MARY 5.9 4-10 CREATININE, MARY 88.10 >20 SP.GRAVITY, MARY 1.017 1.003-1.020 May 31, 2021 07:19 [place] AMPHETAMINES SCREEN PANEL Sp ecimen Type: URINE [...] may have been adulterated. Ordering Provid er: TOBIAS MONROY Report Released Date/Time: Apr 04, 2021 09:34 AM Reporting Lab: [address] [address] Performing Lab: [address] [address] AMPHETAMINES SCREEN NONE-DETECTED None-D etected, Cutoff = 1000 ng/mL PH, MARY 5.9 4-10 CREATININE, MARY 88.10 >20 SP.GRAVITY, MARY 1.017 1.003-1.020 May 31, 2021 07:19 AM [place] FENTANYL SCREEN PANEL Spe cimen Type: URINE [...] may have been adulterated. Ordering Provid er: TOBIAS MONROY Report Released Date/Time: Apr 04, 2021 09:34 AM Reporting Lab: [address] [address] Performing Lab: [address] [address] FENTANYL SCREEN NONE-DETECTED Negative: Cutoff = 1.00 ng/mL PH, MARY 5.9 4-10 CREATININE, MARY 85.35 >20 SP.GRAVITY, MARY 1.017 1.003-1.020 May 31, 2021 07:19 [place] BENZODIAZEPINES SCREEN PANEL Specimen Type: URINE AM [...] may have been adulterated. Ordering Provid er: TOBIAS MONROY Report Released Date/Time: Apr 04, 2021 09:34 AM Reporting Lab: [facility] [address] [facility] [address] Performing Lab: [facility] [address] [facility] [address] BENZODIAZEPINES SCREEN NONE-DETECTED Non e-Detected, Cutoff = 200 ng/mL PH, MARY 5.9 4-10 CREATININE, MARY 88.10 >20 SP.GRAVITY, MARY 1.017 1.003-1.020 May 31, 2021 07:19 [place] BUPRENORPHINE SCREEN PANEL S pecimen Type: URINE [...] may have been adulterated. Ordering Provid er: TOBIAS MONROY Report Released Date/Time: Apr 04, 2021 09:34 AM Reporting Lab: [facility] [place] [facility] [address] [facility] [address] Performing Lab: [facility] [address] [address] BUPRENORPHINE (URINE) NONE-DETECTED None Detected, Cutoff = 10.0 ng/mL PH, MARY 5.9 4-10 CREATININE, MARY 88.10 >20 SP.GRAVITY, MARY 1.017 1.003-1.020 May 31, 2021 07:19 [place] CANNABINOIDS SCREEN PANEL Sp ecimen Type: URINE [...] may have been adulterated. Ordering Provid er: TOBIAS MONROY Report Released Date/Time: Apr 04, 2021 09:34 AM Reporting Lab: [facility] [address] [facility] [address] Performing Lab: [facility] [address] [facility] [address] CANNABINOIDS SCREEN NONE-DETECTED None-D etected,Cutoff = 50 ng/mL PH, MARY 5.9 4-10 CREATININE, MARY 88.10 >20 SP.GRAVITY, MARY 1.017 1.003-1.020 May 31, 2021 07:19 AM [place] COCAINE SCREEN PANEL Spec imen Type: URINE [...] may have been adulterated. Ordering Provid er: TOBIAS MONROY Report Released Date/Time: Apr 04, 2021 09:34 AM Reporting Lab: [facility] [place] [facility] [address] [facility] [address] Performing Lab: [facility] [address] [facility] [address] COCAINE SCREEN NONE-DETECTED None-Detect ed,Cutoff = 300 ng/mL PH, MARY 5.9 4-10 CREATININE, MARY 88.10 >20 SP.GRAVITY, MARY 1.017 1.003-1.020 May 31, 2021 07:19 AM [place] OPIATES SCREEN PANEL Spec imen Type: URINE [...] may have been adulterated. Ordering Provid er: TOBIAS MONROY Report Released Date/Time: Apr 04, 2021 09:34 AM Reporting Lab: [facility] [address] [facility] [address] Performing Lab: [address] [address] OPIATES SCREEN NONE-DETECTED None-Detect ed, Cutoff = 300 ng/mL PH, MARY 5.9 4-10 CREATININE, MARY 88.10 >20 SP.GRAVITY, MARY 1.017 1.003-1.020 May 31, 2021 07:19 AM [place] OXYCODONE SCREEN PANEL Sp ecimen Type: URINE [...] may have been adulterated. Ordering Provid er: TOBIAS MONROY Report Released Date/Time: Apr 04, 2021 09:34 AM Reporting Lab: [facility] [address] [facility] [address] Performing Lab: [facility] [address] OXYCODONE SCREEN NONE-DETECTED None-Dete cted, Cutoff = 100 ng/mL PH, MARY 5.9 4-10 CREATININE, MARY 88.10 >20 SP.GRAVITY, MARY 1.017 1.003-1.020 Social History: Smoking Status (Most current) and Tobacco Use (All prior to encounter date) This section includes the most current, and the historical, smoking and tobacco-related health factors from the [place] facility where the Encounter took place.Current Smoking Status This section includes the most current smoking, or tobacco-related health factor, from the [place] facility where the Encounter took place. Date/Time Current Smoking Status Comment Facility Jul 26, 2020 10:43 AM [place]-TOBACCO FORMER USER [facility] Tobacco Use History This section includes a history of the smoking, or tobacco- related health factors, that were collected on or before the date of the Encounter. The data comes from the [place] facility where the Encounter took place. Date/Time Smoking Status/Tobacco Use Comment [facility] it Jul 26, 2020 10:43 AM [place]-TOBACCO QUIT 15 YRS OR [facility] [employer] Advance Directives: All historical and current Section Date Range: From patient's date of to the date document was created. This section includes ALL of a patient's completed or amended [place] Advance and Rescinded Directives. The entries below indicate that a directive exists for the patient, but an actual copy is not included with this document. The data comes from all [place] facilities. Date Advance Directives Provider Source May 20, 2006 ADVANCE DIRECTIVE BAYLEE SHUKLA
--- OUTSIDE RECORDS SUMMARY | 2022-04-21 09:13 | XMS_ITS | Encounter Summary ---
:1935 Author Organization [facility] Address [address] [place] [id number] Support Name Relationship Address Phone BRIAN CHARLES Unavailable [address] [place] [address] BRIAN CHARLES Unavailable [address] [place] [address] BRIAN CHARLES Unavailable [address] [phone] [place] [address] Insurance Providers: All historical and current Section [...] Number [place] ANTHEM MEDIGAP MEDEX Dec 29, [id number] [phone] Anamika WALSH PATIENT BCBS OF CT PLAN C 2001 3 SPEEDY ANTHEM MEDICARE MEDEX Dec 29, [id number] [phone] Anamika WALSH PATIENT BCBS OF CT SUPPLEMEN BRON 2001 3 SPEEDY [place] E BCBS [place] MEDICARE MEDEX Dec 29, [id number] [phone] Anamika GONZALES PATIENT SUPPLEMEN BRONZ [id number] SPEED[place] E BCBS [place] MEDICARE MEDEX Dec 29, [id number] [phone] Anamika GONZALES PATIENT SUPPLEMEN BRONZ 2001 4 SPEEDY HER[place] E BCBS OF MEDICARE PSUED May 31, [id number] [phone] Anamika GONZALES PATIENT [place] SUPPLEMEN O [id number] 3 SPEEDY HERMINIA MEDEX BRONZ E BLUE CROSS MEDIGAP MEDEX May 31, [id number] [phone] WHEE LER,R PATIENT BLUE [facility] [place] EAST 1999 05 [id number] OBERT SHIELD OF E [place] MEDICARE MEDICARE PART October 29, PART B [id number] [phone] WHEELE R,R PATIENT (WNR) (M) B 2001 RC08 2 [place]ERT MEDICARE MEDICARE PART October 29, PART B [id number] [phone] WHEELE R,R PATIENT (WNR) (M) B 2001 85A 00 SPEEDY MEDICARE MEDICARE PART October 29, PART B [id number] [id number] WHEELE R,R PATIENT (WNR) (M) B 2001 RC08 00 SPE[place] MEDICARE MEDICARE PART October 29, PART B [id number] [phone] WHEELE R,R PATIENT (WNR) (M) B 2001 85A 00 SPE[place] MEDICARE MEDICARE PART October 29, PART B [id number] [phone] WHEELE R,R PATIENT (WNR) (M) B 2001 RC08 00 [facility] MEDICARE MEDICARE PART May 31, PART A [id number] WHEELE R,R PATIENT (WNR) (M) A 1999 RC08 2 SPEEDY MEDICARE MEDICARE PART May 31, PART A [id number] [phone] WHEELE R,R PATIENT (WNR) (M) A 1999 85A 00 SPE[place]Y MEDICARE MEDICARE PART May 31, PART A [id number] [id number] WHEELE R,R PATIENT (WNR) (M) A 1999 RC08 00 SPE[place] MEDICARE MEDICARE PART May 31, PART A [id number] [phone] WHEELE R,R PATIENT (WNR) (M) A 1999 85A 00 SPE[place] MEDICARE MEDICARE PART May 31, PART A [id number] [id number] WHEELE R,R PATIENT (WNR) (M) A 1999 RC08 SPEEDY Selected Encounter This section includes the [facility]. Date/Time Encounter Type Encounter Description Reason Provider Source Jun 20, 2021 02:24 Outpatient Encounter TELEPHONE TRIAGE PM IHE Encounter Template Text not used by [facility] Plan of Treatment: Future Appointments (+ 6 months) and Future Tests (+/- 45 days) The Plan of Treatment section includes future care activities for the patient from all [place] [facility]. This section includes future appointments and future orders which are active, pending orscheduled.Future Appointments This section includes appointments that were scheduled to occur 6 months from the date of the Encounter, up to a maximum of 20 appointments. The data comes from all [place] treatment facilities. Appointment Date/Time Appointment Type Appointment Facili ty Name Oct 26, 2021 01:30 PM AMBULATORY - [facility] October 31, 2021 01:30 PM [facility]ULATORY [facility] November 24, 2021 09:00 AM AMBULATORY MEDICINE [facility] Lab Results: +/- 30 days of the encounter This section includes the Chemistry and Hematology Lab Results on record with [place] for the patient. Radiology Reports and Pathology Reports are provided separately, in subsequent sections.Lab Results This section contains the Chemistry/Hematology Results that were resulted 30 days before or 30 daysafter the date of the Encounter. Date/Time Source Result Type Result - Unit Interpretation Reference Range Comment May 31, 2021 07:19 AM [facility] LIPID PANEL FASTING Speci men Type: SERUM No comment enter ed. Ordering Provid er: SHREE MONROY Report Released Date/Time: Mar 30, 2021 09:20 AM Reporting Lab: [address] [address] Performing Lab: [address] [address] CHOLESTEROL 144 0-199 TRIGLYCERIDE 93 0-150 LDL calculated 89 0-129 CHOL/HDL 4.0 HDL CHOLESTEROL 36 L 40-60 May 31, 2021 07:19 AM [facility] BASIC METABOLIC PANEL Spe cimen Type: SERUM (fasting) No comment enter ed. Ordering Provid er: SHREE MONROY Report Released Date/Time: Mar 30, 2021 09:20 AM Reporting Lab: [address] [address] Performing Lab: [address] [address] UREA NITROGEN 33 H 7-25 GLUCOSE 160 H 65-100 SODIUM 137 135-145 POTASSIUM 5.1 H 3.5-5.0 CHLORIDE 105 100-110 CO2 21 20-30 CREATININE, Serum 1.46 H 0.50-1.40 eGFR (IDMS) 46 L >60 May 31, 2021 07:19 AM [facility] HEMOGLOBIN A1C PANEL Spec imen Type: BLOOD [...] Mar 30, 2021 09:20 AM Reporting Lab: [address] [address] Performing Lab: [address] [address] HEMOGLOBIN A1C 6.5 H 4.0-5.6 May 31, 2021 07:19 AM [facility] LIVER FUNCTION Specimen Type: SERUM No comment enter ed. Ordering Provid er: SHREE MONROY Report Released Date/Time: Mar 30, 2021 09:20 AM Reporting Lab: [address] [address] Performing Lab: [address] [address] PROTEIN,TOTAL 6.4 6.0-8.3 ALBUMIN 3.4 L 3.5-5.0 ALKALINE PHOSPHATASE 78 40-150 AST 13 5-34 ALT 15 0-55 BILIRUBIN, TOTAL 0.4 0.2-1.2 May 31, 2021 07:19 AM [facility] TSH Specimen Type: SERUM No comment enter ed. Ordering Provid er: SHREE MONROY Report Released Date/Time: Mar 30, 2021 09:20 AM Reporting Lab: [address] [address] Performing Lab: [address] [place] [address] TSH 1.76 0.35-5.00 May 31, 2021 07:19 AM [facility] VITAMIN B12 Specimen Type: SERUM No comment enter ed. Ordering Provid er: SHREE MONROY Report Released Date/Time: Mar 30, 2021 09:20 AM Reporting Lab: [address] [address] Performing Lab: [address] [address] VITAMIN B12 256 200-900 May 31, 2021 07:19 [facility] MICROALBUMIN CREATININE Spec imen Type: URINE AM RATIO PANEL No comment enter ed. Ordering Provid er: SHREE MONROY Report Released Date/Time: Mar 30, 2021 09:20 AM Reporting Lab: [address] [address] Performing Lab: [address] [address] MICROALBUMIN/CREATININE RATIO 780.6 H 0-29.9 MICROALBUMIN,QUANTITATIVE 68.3 RR U NAVAIL CREATININE URINE 87.50 May 31, 2021 07:19 AM [facility] URINALYSIS Specimen Type: URINE Comment: A posi tive ascorbic acid indicates possible interferences with blood, glucose, nitrite and bilirubin. Ordering Provid er: SHREE MONROY Report Released Date/Time: Mar 30, 2021 09:20 AM Reporting Lab: [address] [address] Performing Lab: [address] [address] UA COLOR Yellow Yellow UA APPEARANCE Clear Clear UA GLUCOSE Negative Negative UA KETONES Negative Neg UA BLOOD Negative Neg UA PROTEIN 100 Neg UA NITRITE Negative Neg UA BILIRUBIN Negative Neg UA SPECIFIC GRAVITY 1.017 1.016-1.02 2 UA pH 5.0 5.0-9.0 UA UROBILINOGEN <2.0 <2.0 UA LEUKOCYTE ESTERASE Negative Neg May 31, 2021 07:19 AM [facility] CBC AND DIFF (AUTO) Speci men Type: BLOOD No comment enter ed. Ordering Provid er: SHREE MONROY Report Released Date/Time: Mar 30, 2021 09:20 AM Reporting Lab: [facility] [address] [facility] [address] Performing Lab: [facility] [address] [facility] [address] WBC 10.39 4.50-11.00 RBC 3.73 L 4.23-5.66 HGB 11.7 L 12.8-17 HCT 35.6 L 39.2-50.4 MCV 95.4 82-99 MCHC 32.9 30.8-35.1 PLT 397 H 140-360 RDW-CV 14.1 12.0-16.0 Kleberg, Abs 0.99 0.30-1.10 MCH 31.4 26.2-32.6 Neut % 55.8 Lymph % 26.9 Kleberg % 9.5 Eos % 6.4 Baso % 0.7 Neut, Abs 5.80 2.20-7.60 Lymph, Abs 2.80 1.00-3.20 Eos, Abs 0.66 H 0.03-0.44 Baso, Abs 0.07 0.01-0.13 Immature Gran % 0.7 Immature Gran, Abs 0.07 H 0.00-0.06 May 31, 2021 07:19 [facility] MICROSCOPIC AUTOMATED, Speci men Type: URINE AM URINE Comment: A posi tive ascorbic acid indicates possible interferences with blood, glucose, nitrite and bilirubin. Ordering Provid er: SHREE MONROY Report Released Date/Time: Mar 30, 2021 09:20 AM Reporting Lab: [facility] [address] [facility] [address] Performing Lab: [address] [address] UA WBC 0-5 0-5 UA MUCUS FEW Trace UA RBC 0-2 0-3 UA SQUAMOUS EPITH FEW May 31, 2021 07:19 AM [facility] ETG SCREEN (wx) Specimen Type: URINE Comment: MARY te st are qualitative, any L or H flags only indicate a [facility] alert was sent. This ETG test was developed and its performance characteristics determined by [place] clinical lab. The [place] Food and Helder g Administration has not approved or cleared this test, FDA clearance or approval is not currently required for clinical use. ETG cutoff 500 ng/mL Ordering Provid er: SHREE MONROY Report Released Date/Time: Apr 04, 2021 09:34 AM Reporting Lab: [address] [address] Performing Lab: [facility] [address] [facility] [address] ETG SCREEN (wx) Negative L Negative May 31, 2021 07:19 AM [facility] METHADONE SCREEN Specimen Type: URINE Comment: MARY te st are qualitative, any L or H flags only indicate a [place] alert was sent. Ordering Provid er: SHREE MONROY Report Released Date/Time: Apr 04, 2021 09:34 AM Reporting Lab: [address] [address] Performing Lab: [facility] [address] [facility] [address] METHADONE SCREEN None detected(Negative) L Negative May 31, 2021 07:19 AM [facility] ALCOHOL, ETHYL URINE Spec imen Type: URINE [...] Apr 04, 2021 09:34 AM Reporting Lab: [address] [address] Performing Lab: [address] [address] ALCOHOL, ETHYL URINE NONE-DETECTED NONE- DETECTED, cutoff = 10 mg/dL PH, MARY 5.9 4-10 CREATININE, MARY 88.10 >20 SP.GRAVITY, MARY 1.017 1.003-1.020 May 31, 2021 07:19 [facility] AMPHETAMINES SCREEN PANEL Sp ecimen Type: URINE [...] Apr 04, 2021 09:34 AM Reporting Lab: [address] [address] Performing Lab: [address] [address] AMPHETAMINES SCREEN NONE-DETECTED None-D etected, Cutoff = 1000 ng/mL PH, MARY 5.9 4-10 CREATININE, MARY 88.10 >20 SP.GRAVITY, MARY 1.017 1.003-1.020 May 31, 2021 07:19 AM [facility] FENTANYL SCREEN PANEL Spe cimen Type: URINE [...] Apr 04, 2021 09:34 AM Reporting Lab: [address] [address] Performing Lab: [address] [address] FENTANYL SCREEN NONE-DETECTED Negative: Cutoff = 1.00 ng/mL PH, MARY 5.9 4-10 CREATININE, MARY 85.35 >20 SP.GRAVITY, MARY 1.017 1.003-1.020 May 31, 2021 07:19 [facility] BUPRENORPHINE SCREEN PANEL S pecimen Type: URINE [...] Apr 04, 2021 09:34 AM Reporting Lab: [address] [address] Performing Lab: [address] [address] BUPRENORPHINE (URINE) NONE-DETECTED None Detected, Cutoff = 10.0 ng/mL PH, MARY 5.9 4-10 CREATININE, MARY 88.10 >20 SP.GRAVITY, MARY 1.017 1.003-1.020 May 31, 2021 07:19 [facility] BENZODIAZEPINES SCREEN PANEL Specimen Type: URINE AM [...] Apr 04, 2021 09:34 AM Reporting Lab: [facility] [address] [facility] [address] Performing Lab: [facility] [address] BENZODIAZEPINES SCREEN NONE-DETECTED Non e-Detected, Cutoff = 200 ng/mL PH, MARY 5.9 4-10 CREATININE, MARY 88.10 >20 SP.GRAVITY, MARY 1.017 1.003-1.020 May 31, 2021 07:19 [facility] CANNABINOIDS SCREEN PANEL Sp ecimen Type: URINE [...] Apr 04, 2021 09:34 AM Reporting Lab: [facility] [address] [facility] [address] Performing Lab: [address] [address] CANNABINOIDS SCREEN NONE-DETECTED None-D etected,Cutoff = 50 ng/mL PH, MARY 5.9 4-10 CREATININE, MARY 88.10 >20 SP.GRAVITY, MARY 1.017 1.003-1.020 May 31, 2021 07:19 AM [facility] COCAINE SCREEN PANEL Spec imen Type: URINE [...] Apr 04, 2021 09:34 AM Reporting Lab: [facility] [address] [facility] [address] Performing Lab: [address] [address] COCAINE SCREEN NONE-DETECTED None-Detect ed,Cutoff = 300 ng/mL PH, MARY 5.9 4-10 CREATININE, MARY 88.10 >20 SP.GRAVITY, MARY 1.017 1.003-1.020 May 31, 2021 07:19 AM [facility] OPIATES SCREEN PANEL Spec imen Type: URINE [...] Apr 04, 2021 09:34 AM Reporting Lab: [facility] [address] [facility] [address] Performing Lab: [facility] [address] [facility] [address] OPIATES SCREEN NONE-DETECTED None-Detect ed, Cutoff = 300 ng/mL PH, MARY 5.9 4-10 CREATININE, MARY 88.10 >20 SP.GRAVITY, MARY 1.017 1.003-1.020 May 31, 2021 07:19 AM [facility] OXYCODONE SCREEN PANEL Sp ecimen Type: URINE [...] Apr 04, 2021 09:34 AM Reporting Lab: [facility] [address] [facility] [address] Performing Lab: [facility] [address] [facility] [address] OXYCODONE SCREEN NONE-DETECTED None-Dete cted, Cutoff = [...] 26, 2020 10:43 AM [place]-TOBACCO FORMER USER [facility] Tobacco Use History This section includes a history of the smoking, or tobacco- related health factors, that were collected on or before the date of the Encounter. The data comes from the [place] facility where the Encounter took place. Date/Time Smoking Status/Tobacco Use Comment [facility] it Jul 26, 2020 10:43 AM [place]-TOBACCO QUIT 15 YRS OR [facility] Advance Directives: All historical and current Section [...] May 20, 2006 ADVANCE DIRECTIVE BAYLEE SHUKLA [facility] Encounter Notes: All associated encounter notes This section contains the clinical notes associated to the Encounter. Date/Time Encounter Note(s) Provider Source Jun 20, 2021 02:24 PM NURSING TELEPHONE ENCOUNTER TRIAGE NOTE: RONNIE HUNT [facility] TITLE: VISN 1 CLINICAL CONTACT CENTER [facility] STANDARD TITLE: NURSING TELEPHONE ENCOUNTER TRIA GE NOTE DATE OF NOTE: JUN 20, 2021@14:24:42 ENTRY DATE: JUN 20, 2021@14:28:07 AUTHOR: RONNIE VIGIL EXP COSIGNER: URGENCY: STATUS: COMPLETED VISN 1 CLINICAL CONTACT CENTER Has ADDENDA The patient, MART WALSH ([id number] ) called the call center. The following identifiers were used to verify th is patient: SSN. Contact Type of call: ADMINISTRATIVE. Caller Response: ADM CALL RESOLVED Caller Area: [facility] CB PCMM Provider Info: [facility] ([id number]) PACT: SO PACT 2 (Focus: Primary Care Only) Primary Care Provider: Shree Monroy PHONE:[phone] Ground Crewman Mission Support: JacquelineCindy Clinical Associate: Vita Calero Prep Manager: Clinton Gomez Clinical POC: Clinical Associate Desmond Calero Administrative POC: Prep Manager Clinton Gomez Author: RONNIE VIGIL Comments: Vet called req to speak to team regarding meds h e should have recvd from his stay at [facility] on 06/14/21. Evaluation/Management Code: HC PRO PHONE CALL 5- 10 MIN ([id number]). Starting at: 06/20/2021 @ 2:24:42 PM Ending at: 06/20/2021 @ 2:26:43 PM Length: 2 minutes. Chief Complaint: Not applicable to call. Class Code: Other specified counseling. 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 He t ells me he went to [facility] [place] with chest pain. Was d/c same day and apparently a RX for Metoprolol was sent over. We have not received anything as of this point. I will request d/c summary urgently in hopes of getting a RX filled for him. /rylan TOMLINSON RN STAFF NURSE Signed: 06/20/2021 15:24 06/21/2021 ADDENDUM STATUS: COMPLETED d/c rec'd reviewed - meds or dered - pt tells me please mail them as he did get a short supply from Dr Sheets - his PCP. He has a f /u with him next week and a Cardiology appt set up as we ll. He does not need anything further from [facility] at this point. /rylan TOMLINSON RN STAFF NURSE Signed: 06/21/2021 14:10
--- OUTSIDE RECORDS SUMMARY | 2022-04-21 09:14 | XMS_ITS | Encounter Summary ---
:1935 Author Organization [facility] Address [address] [place] [address] Support Name Relationship Address Phone BRIAN CHARLES Unavailable [address] [place] [address] BRIAN CHARLES Unavailable [address] [place] [address] BRIAN CHARLES Unavailable [address] [phone] [place] [address] Insurance Providers: All historical and current Section [...] Number Stinson ANTHEM MEDIGAP MEDEX Dec 29, [id number] [phone] Anamika WALSH PATIENT BCBS OF CT PLAN C 2001 3 SPEEDY ANTHEM MEDICARE MEDEX Dec 29, [id number] [phone] Anamika WALSH PATIENT BCBS OF CT SUPPLEMEN BRON 2001 3 SPEEDY HERMINIA E BCBS ID MEDICARE MEDEX Dec 29, [id number] [phone] Anamika GONZALES PATIENT SUPPLEMEN BRONZ 2001 4 SPEEDY HER[place] E BCBS ID MEDICARE MEDEX Dec 29, [id number] [phone] Anamika GONZALES PATIENT SUPPLEMEN BRONZ 2001 4 SPEEDY HERMIN[place] E BCBS OF MEDICARE PSUED May 31, [id number] [phone] Anamika GONZALES PATIENT MASS SUPPLEMEN O 1999 3 SPEEDY HERMINIA MEDEX BRONZ E BLUE CROSS MEDIGAP MEDEX May 31 [id number] [phone] WHEE LER,R PATIENT BLUE [facility] [place] EAST 1999 05 [id number] SPEEDY SHIELD [facility] MEDICARE MEDICARE PART October 29, PART B [id number] [phone] WHEELE R,R PATIENT (WNR) (M) B 2001 RC08 2 SPEEDY MEDICARE MEDICARE PART October 29, PART B [id number] [phone] WHEELE R,R PATIENT (WNR) (M) B 2001 85A 00 SPEEDY MEDICARE MEDICARE PART October 29, PART B [id number] [phone] WHEELE R,R PATIENT (WNR) (M) B 2001 RC08 00 SPEEDY MEDICARE MEDICARE PART October 29, PART B [id number] [phone] WHEELE R,R PATIENT (WNR) (M) B 2001 85A 00 SPEEDY MEDICARE MEDICARE PART October 29, PART B [id number] WHEELE R,R PATIENT (WNR) (M) B 2001 RC08 00 SPEEDY MEDICARE MEDICARE PART May 31, PART A [id number] [phone] WHEELE R,R PATIENT (WNR) (M) A 1999 RC08 2 SPEEDY MEDICARE MEDICARE PART May 31, PART A [id number] [id number] WHEELE R,R PATIENT (WNR) (M) A 1999 85A 00 SPEEDY MEDICARE MEDICARE PART May 31, PART A [id number] [phone] WHEELE R,R PATIENT (WNR) (M) A 1999 RC08 00 SPEEDY MEDICARE MEDICARE PART May 31, PART A [id number] [phone] WHEELE R,R PATIENT (WNR) (M) A 1999 85A 00 SPEEDY MEDICARE MEDICARE PART May 31, PART A [id number] [phone] WHEELE R,R PATIENT (WNR) (M) A 1999 RC08 00 SPEEDY Selected Encounter This section includes the information on record at OR for the Encounter. Date/Time Encounter Type Encounter Description Reason Provider Source May 31, 2021 07:42 Outpatient Encounter PRIMARY CARE/MEDICINE AM I[facility] Encounter Template Text not used by OR Plan of Treatment: Future Appointments (+ 6 months) and Future Tests (+/- 45 days) The Plan of Treatment section includes future care activities for the patient from all OR treatmentfacilities. This section includes future appointments and future orders which are active, pending orscheduled.Future Appointments This section includes appointments that were scheduled to occur 6 months from the date of the Encounter, up to a maximum of 20 appointments. The data comes from all OR treatment facilities. Appointment Date/Time Appointment Type Appointment Facili ty Name Jun 07, 2021 01:30 PM AMBULATORY - MEDICINE [facility] Oct 26, 2021 01:30 PM AMBULATORY MEDICINE [facility] October 31, 2021 01:30 PM [facility] MEDICINE [facility] November 24, 2021 09:00 AM [facility] MEDIC[facility] Lab Results: +/- 30 days of the encounter This section includes the Chemistry and Hematology Lab Results on record with OR for the patient. Radiology Reports and Pathology Reports are provided separately, in subsequent sections.Lab Results This section contains the Chemistry/Hematology Results that were resulted 30 days before or 30 daysafter the date of the Encounter. Date/Time Source Result Type Result - Unit Interpretation Reference Range Comment May 31, 2021 07:19 AM [facility] LIPID PANEL FASTING Speci men Type: SERUM No comment enter ed. Ordering Provid er: TOBIAS MONROY Report Released Date/Time: Mar 30, 2021 09:20 AM Reporting Lab: [address] [address] Performing Lab: [address] [address] CHOLESTEROL 144 0-199 TRIGLYCERIDE 93 0-150 LDL calculated 89 0-129 CHOL/HDL 4.0 HDL CHOLESTEROL 36 L 40-60 May 31, 2021 07:19 AM [facility] HEMOGLOBIN A1C PANEL Spec imen Type: BLOOD [...] Mar 30, 2021 09:20 AM Reporting Lab: [facility] [address] [address] Performing Lab: [facility] [address] [address] HEMOGLOBIN A1C 6.5 H 4.0-5.6 May 31, 2021 07:19 AM [facility] LIVER FUNCTION Specimen Type: SERUM No comment enter ed. Ordering Provid er: TOBIAS MONROY Report Released Date/Time: Mar 30, 2021 09:20 AM Reporting Lab: [address] [address] Performing Lab: [address] [address] PROTEIN,TOTAL 6.4 6.0-8.3 ALBUMIN 3.4 L 3.5-5.0 ALKALINE PHOSPHATASE 78 40-150 AST 13 5-34 ALT 15 0-55 BILIRUBIN, TOTAL 0.4 0.2-1.2 May 31, 2021 07:19 AM [facility] BASIC METABOLIC PANEL Spe cimen Type: SERUM (fasting) No comment enter ed. Ordering Provid er: TOBIAS MONROY Report Released Date/Time: Mar 30, 2021 09:20 AM Reporting Lab: [facility] [address] [address] Performing Lab: [facility] [address] [address] UREA NITROGEN 33 H 7-25 GLUCOSE 160 H 65-100 SODIUM 137 135-145 POTASSIUM 5.1 H 3.5-5.0 CHLORIDE 105 100-110 CO2 21 20-30 CREATININE, Serum 1.46 H 0.50-1.40 eGFR (IDMS) 46 L >60 May 31, 2021 07:19 AM [facility] TSH Specimen Type: SERUM No comment enter ed. Ordering Provid er: TOBIAS MONROY Report Released Date/Time: Mar 30, 2021 09:20 AM Reporting Lab: [facility] [address] [address] Performing Lab: [facility] [address] [address] TSH 1.76 0.35-5.00 May 31, 2021 07:19 AM [facility] VITAMIN B12 Specimen Type: SERUM No comment enter ed. Ordering Provid er: TOBIAS MONROY Report Released Date/Time: Mar 30, 2021 09:20 AM Reporting Lab: [facility] [address] [address] Performing Lab: [facility] [address] [address] VITAMIN B12 256 200-900 May 31, 2021 07:19 [facility] MICROALBUMIN CREATININE Spec imen Type: URINE AM RATIO PANEL No comment enter ed. Ordering Provid er: TOBIAS MONROY Report Released Date/Time: Mar 30, 2021 09:20 AM Reporting Lab: [facility] [address] [address] Performing Lab: [facility] [address] [address] MICROALBUMIN/CREATININE RATIO 780.6 H 0-29.9 MICROALBUMIN,QUANTITATIVE 68.3 RR U NAVAIL CREATININE URINE 87.50 May 31, 2021 07:19 AM [facility] URINALYSIS Specimen Type: URINE Comment: A posi tive ascorbic acid indicates possible interferences with blood, glucose, nitrite and bilirubin. Ordering Provid er: TOBIAS MONROY Report Released Date/Time: Mar 30, 2021 09:20 AM Reporting Lab: [facility] [address] [address] Performing Lab: [facility] [address] [address] UA COLOR Yellow Yellow UA APPEARANCE Clear Clear UA GLUCOSE Negative Negative UA KETONES Negative Neg UA BLOOD Negative Neg UA PROTEIN 100 Neg UA NITRITE Negative Neg UA BILIRUBIN Negative Neg UA SPECIFIC GRAVITY 1.017 1.016-1.02 2 UA pH 5.0 5.0-9.0 UA UROBILINOGEN <2.0 <2.0 UA LEUKOCYTE ESTERASE Negative Neg May 31, 2021 07:19 AM [facility] CBC AND DIFF (AUTO) Speci men Type: BLOOD No comment enter ed. Ordering Provid er: TOBIAS MONROY Report Released Date/Time: Mar 30, 2021 09:20 AM Reporting Lab: [facility] [address] [address] Performing Lab: [facility] [address] [address] WBC 10.39 4.50-11.00 RBC 3.73 L 4.23-5.66 HGB 11.7 L 12.8-17 HCT 35.6 L 39.2-50.4 MCV 95.4 82-99 MCHC 32.9 30.8-35.1 PLT 397 H 140-360 RDW-CV 14.1 12.0-16.0 [place], Abs 0.99 0.30-1.10 MCH 31.4 26.2-32.6 Neut % 55.8 Lymph % 26.9 [place] % 9.5 Eos % 6.4 Baso % 0.7 Neut, Abs 5.80 2.20-7.60 Lymph, Abs 2.80 1.00-3.20 Eos, Abs 0.66 H 0.03-0.44 Baso, Abs 0.07 0.01-0.13 Immature Gran % 0.7 Immature Gran, Abs 0.07 H 0.00-0.06 May 31, 2021 07:19 [facility] MICROSCOPIC AUTOMATED, Speci men Type: URINE AM URINE Comment: A posi tive ascorbic acid indicates possible interferences with blood, glucose, nitrite and bilirubin. Ordering Provid er: TOBIAS MONROY Report Released Date/Time: Mar 30, 2021 09:20 AM Reporting Lab: [facility] [address] [address] Performing Lab: [address] [address] UA WBC 0-5 0-5 UA MUCUS FEW Trace UA RBC 0-2 0-3 UA SQUAMOUS EPITH FEW May 31, 2021 07:19 AM [facility] ETG SCREEN (wx) Specimen Type: URINE Comment: MARY te st are qualitative, any L or H flags only indicate a [facility] alert was sent. This ETG test was developed and its performance characteristics determined by OR clinical lab. The [place] Food and Helder g Administration has not approved or cleared this test, FDA clearance or approval is not currently required for clinical use. ETG cutoff 500 ng/mL Ordering Provid er: TOBIAS MONROY Report Released Date/Time: Apr 04, 2021 09:34 AM Reporting Lab: [address] [address] Performing Lab: [facility] [address] [address] ETG SCREEN (wx) Negative L Negative May 31, 2021 07:19 AM [facility] METHADONE SCREEN Specimen Type: URINE Comment: MARY te st are qualitative, any L or H flags only indicate a [facility] alert was sent. Ordering Provid er: TOBIAS MONROY Report Released Date/Time: Apr 04, 2021 09:34 AM Reporting Lab: [address] [address] Performing Lab: [facility] [address] [address] METHADONE SCREEN None detected(Negative) L Negative May 31, 2021 07:19 [facility] AMPHETAMINES SCREEN PANEL Sp ecimen Type: URINE [...] Apr 04, 2021 09:34 AM Reporting Lab: [address] [address] Performing Lab: [address] [address] AMPHETAMINES SCREEN NONE-DETECTED None-D etected, Cutoff = 1000 ng/mL PH, MARY 5.9 4-10 CREATININE, MARY 88.10 >20 SP.GRAVITY, MARY 1.017 1.003-1.020 May 31, 2021 07:19 AM [facility] ALCOHOL, ETHYL URINE Spec imen Type: URINE [...] Apr 04, 2021 09:34 AM Reporting Lab: [address] [address] Performing Lab: [address] [address] ALCOHOL, ETHYL URINE NONE-DETECTED NONE- DETECTED, cutoff = 10 mg/dL PH, MARY 5.9 4-10 CREATININE, MARY 88.10 >20 SP.GRAVITY, MARY 1.017 1.003-1.020 May 31, 2021 07:19 AM [facility] FENTANYL SCREEN PANEL Spe cimen Type: URINE [...] Apr 04, 2021 09:34 AM Reporting Lab: [address] [address] Performing Lab: [address] [address] FENTANYL SCREEN NONE-DETECTED Negative: Cutoff = 1.00 ng/mL PH, MARY 5.9 4-10 CREATININE, MARY 85.35 >20 SP.GRAVITY, MARY 1.017 1.003-1.020 May 31, 2021 07:19 [facility] BENZODIAZEPINES SCREEN PANEL Specimen Type: URINE AM [...] Apr 04, 2021 09:34 AM Reporting Lab: [address] [address] Performing Lab: [address] [address] BENZODIAZEPINES SCREEN NONE-DETECTED Non e-Detected, Cutoff = 200 ng/mL PH, MARY 5.9 4-10 CREATININE, MARY 88.10 >20 SP.GRAVITY, MARY 1.017 1.003-1.020 May 31, 2021 07:19 [facility] BUPRENORPHINE SCREEN PANEL S pecimen Type: URINE [...] Apr 04, 2021 09:34 AM Reporting Lab: [address] [address] Performing Lab: [address] [address] BUPRENORPHINE (URINE) NONE-DETECTED None Detected, Cutoff = 10.0 ng/mL PH, MARY 5.9 4-10 CREATININE, MARY 88.10 >20 SP.GRAVITY, MARY 1.017 1.003-1.020 May 31, 2021 07:19 [facility] CANNABINOIDS SCREEN PANEL Sp ecimen Type: URINE [...] Apr 04, 2021 09:34 AM Reporting Lab: [facility] [address] [address] Performing Lab: [facility] [address] [address] CANNABINOIDS SCREEN NONE-DETECTED None-D etected,Cutoff = 50 ng/mL PH, MARY 5.9 4-10 CREATININE, MARY 88.10 >20 SP.GRAVITY, MARY 1.017 1.003-1.020 May 31, 2021 07:19 AM [facility] OPIATES SCREEN PANEL Spec imen Type: URINE [...] Apr 04, 2021 09:34 AM Reporting Lab: [facility] [address] [address] Performing Lab: [facility] [address] [address] OPIATES SCREEN NONE-DETECTED None-Detect ed, Cutoff = 300 ng/mL PH, MARY 5.9 4-10 CREATININE, MARY 88.10 >20 SP.GRAVITY, MRAY 1.017 1.003-1.020 May 31, 2021 07:19 AM [facility] COCAINE SCREEN PANEL Spec imen Type: URINE [...] Apr 04, 2021 09:34 AM Reporting Lab: [facility] [address] [address] Performing Lab: [facility] [address] [address] COCAINE SCREEN NONE-DETECTED None-Detect ed,Cutoff = 300 ng/mL PH, MARY 5.9 4-10 CREATININE, MARY 88.10 >20 SP.GRAVITY, MARY 1.017 1.003-1.020 May 31, 2021 07:19 AM [facility] OXYCODONE SCREEN PANEL Sp ecimen Type: URINE [...] Apr 04, 2021 09:34 AM Reporting Lab: [facility] [address] [address] Performing Lab: [facility] [address] [address] OXYCODONE SCREEN NONE-DETECTED None-Dete cted, Cutoff = 100 ng/mL PH, MARY 5.9 4-10 CREATININE, MARY 88.10 >20 SP.GRAVITY, MARY 1.017 1.003-1.020 Social History: Smoking Status (Most current) and Tobacco Use (All prior to encounter date) This section includes the most current, and the historical, smoking and tobacco-related health factors from the OR facility where the Encounter took place.Current Smoking Status This section includes the most current smoking, or tobacco-related health factor, from the OR facility where the Encounter took place. Date/Time Current Smoking Status Comment Facility Jul 26, 2020 10:43 AM OR-TOBACCO FORMER USER [facility] Tobacco Use History This section includes a history of the smoking, or tobacco- related health factors, that were collected on or before the date of the Encounter. The data comes from the OR facility where the Encounter took place. Date/Time Smoking Status/Tobacco Use Comment [facility] it Jul 26, 2020 10:43 AM OR-TOBACCO QUIT [address] [facility] [place] [facility] Advance Directives: All historical and current Section Date Range: From patient's date of to the date document was created. This section includes ALL of a patient's completed or amended OR Advance and Rescinded Directives. The entries below indicate that a directive exists for the patient, but an actual copy is not included with this document. The data comes from all OR facilities. Date Advance Directives Provider Source May 20, 2006 ADVANCE DIRECTIVE BAYLEE SHUKLAFIELD Encounter Notes: All associated encounter notes This section contains the clinical notes associated to the Encounter. Date/Time Encounter Note(s) Provider Source May 31, 2021 07:42 AM PRIMARY CARE NOTE: SEA MILLER IELD LOCAL TITLE: WALK-IN NOTE PRIMARY CARE (T) STANDARD TITLE: PRIMARY CARE NOTE DATE OF NOTE: MAY 31, 2021@07:42 ENTRY DATE: MAY 31, 2021@07:42:30 AUTHOR: SEA MILLER EXP COSIGNER: URGENCY: STATUS: COMPLETED <====Click to Start Advanced Medical Support presents to the Primary Care clinic with the following request: [ ]Medication Renewal/Refill [ ]Consultation with Team RN [ ]Symptoms [ X ]OtherPT DROPPED OFF OFFICE NOTE FROM OUTSID E PROVIDER The states they are: [ ]Waiting [ X ]Not Waiting No Walk in visit scheduled with PACT Nurse [ X ] At this encounter the 's demographi cs were verified. [ X ] At this encounter the [place]'s Insurance information was verified. [ X ] At this encounter the below scheduled visi ts for the were discussed and appointment reminder card wa s offered. Future appointments: 06/07/2021 13:30 CWM/SO/PAC T 2 TEL MSA PUT IN PROVIDERS MAILBOX FOR TEAM. /selam/ SEA MILLER [employer]ING STRIKER Signed: 05/31/2021 07:44
--- OUTSIDE RECORDS SUMMARY | 2022-04-21 09:14 | XMS_ITS | Encounter Summary ---
:[address] [facility] Address [address] [place] [id number] Support Name Relationship Address Phone BRIAN CHARLES Unavailable [address] [place] [address] BRIAN CHARLES Unavailable [address] [place] [address] BRIAN CHARLES Unavailable [address] [phone] [place] [address] Insurance Providers: All historical and current Section [...] Number [place] ANTHEM MEDIGAP MEDEX Dec 29, [id number] [phone] Anamika WALSH PATIENT BCBS OF CT PLAN C 2001 3 SPEEDY ANTHEM MEDICARE MEDEX Dec 29, [id number] [phone] Anamika WALSH PATIENT BCBS OF CT SUPPLEMEN BRON 2001 3 SPEEDY HERMINIA E BCBS DE MEDICARE MEDEX Dec 29, [id number] [phone] Anamika GONZALES PATIENT SUPPLEMEN BRONZ 2001 4 SPEEDY [place] E BCBS DE MEDICARE MEDEX Dec 29, [id number] [phone] Anamika GONZALES PATIENT SUPPLEMEN BRONZ 2001 4 SPEEDY [place] E BCBS OF MEDICARE PSUED May 31, [id number] [phone] Anamika GONZALES PATIENT MASS SUPPLEMEN O 1999 3 SPEEDY HERMINIA MEDEX BRONZ E BLUE CROSS MEDIGAP MEDEX May 31 [id number] [phone] WHEE LER,R PATIENT BLUE [facility] [place] EAST 1999 05 [id number] SPEEDY SHIELD [facility] MEDICARE MEDICARE PART October 29, PART B [id number] [phone] WHEELE R,R PATIENT (WNR) (M) B 2001 RC08 2 SPEEDY MEDICARE MEDICARE PART October 29, PART B [id number] [phone] WHEELE R,R PATIENT (WNR) (M) B 2001 85A 00 SPEEDY MEDICARE MEDICARE PART October 29, PART B [id number] [phone] WHEELE R,R PATIENT (WNR) (M) B 2001 RC08 00 SPEEDY MEDICARE MEDICARE PART October 29, PART B [id number] [phone] WHEELE R,R PATIENT (WNR) (M) B 2001 85A 00 SPEEDY MEDICARE MEDICARE PART October 29, PART B [id number] [phone] WHEELE R,R PATIENT (WNR) (M) B 2001 RC08 00 SPEEDY MEDICARE MEDICARE PART May 31, PART A [id number] [phone] WHEELE R,R PATIENT (WNR) (M) A 1999 RC08 2 SPEEDY MEDICARE MEDICARE PART May 31, PART A [id number] [phone] WHEELE R,R PATIENT (WNR) (M) A 1999 85A 00 SPEEDY MEDICARE MEDICARE PART May 31, PART A [id number] [phone] WHEELE R,R PATIENT (WNR) (M) A 1999 RC08 00 SPEEDY MEDICARE MEDICARE PART May 31, PART A [id number] [phone] WHEELE R,R PATIENT (WNR) (M) A 1999 85A 00 SPEEDY MEDICARE MEDICARE PART May 31, PART A [id number] [phone] WHEELE R,R PATIENT (WNR) (M) A 1999 RC08 00 SPEEDY Selected Encounter This section includes the information on record at [place] for the Encounter. Date/Time Encounter Type Encounter Description Reason Provider Source Jun 07, 2021 10:33 Outpatient Encounter PRIMARY CARE/MEDICINE AM [facility] Encounter Template Text not used by [place] Plan of Treatment: Future Appointments (+ 6 months) and Future Tests (+/- 45 days) The Plan of Treatment section includes future care activities for the patient from all [place] treatmentfacilities. This section includes future appointments and future orders which are active, pending orscheduled.Future Appointments This section includes appointments that were scheduled to occur 6 months from the date of the Encounter, up to a maximum of 20 appointments. The data comes from all [place] treatment facilities. Appointment Date/Time Appointment Type Appointment Facili ty Name Oct 26, 2021 01:30 PM AMBULATORY - MEDICINE [facility] October 31, 2021 01:30 PM AMBULATORY MEDICINE [facility] November 24, 2021 09:00 AM AMBULATORY - MEDICINE [facility] Lab Results: +/- 30 days of the encounter This section includes the Chemistry and Hematology Lab Results on record with [place] for the patient. Radiology Reports and Pathology Reports are provided separately, in subsequent sections.Lab Results This section contains the Chemistry/Hematology Results that were resulted 30 days before or 30 daysafter the date of the Encounter. Date/Time Source Result Type Result - Unit Interpretation Reference Range Comment May 31, 2021 07:19 AM [facility] HEMOGLOBIN A1C PANEL Spec imen Type: BLOOD [...] Mar 30, 2021 09:20 AM Reporting Lab: [facility] [address] [facility] [address] Performing Lab: [address] [address] HEMOGLOBIN A1C 6.5 H 4.0-5.6 May 31, 2021 07:19 AM [facility] LIVER FUNCTION Specimen Type: SERUM No comment enter ed. Ordering Provid er: TOBIAS MONROY Report Released Date/Time: Mar 30, 2021 09:20 AM Reporting Lab: [facility] [address] [facility] [address] Performing Lab: [facility] [address] [facility] [address] PROTEIN,TOTAL 6.4 6.0-8.3 ALBUMIN 3.4 L 3.5-5.0 ALKALINE PHOSPHATASE 78 40-150 AST 13 5-34 ALT 15 0-55 BILIRUBIN, TOTAL 0.4 0.2-1.2 May 31, 2021 07:19 AM [facility] LIPID PANEL FASTING Speci men Type: SERUM No comment enter ed. Ordering Provid er: TOBIAS MONROY Report Released Date/Time: Mar 30, 2021 09:20 AM Reporting Lab: [facility] [address] [facility] [address] Performing Lab: [address] [address] CHOLESTEROL 144 0-199 TRIGLYCERIDE 93 0-150 LDL calculated 89 0-129 CHOL/HDL 4.0 HDL CHOLESTEROL 36 L 40-60 May 31, 2021 07:19 AM [facility] BASIC METABOLIC PANEL Spe cimen Type: SERUM (fasting) No comment enter ed. Ordering Provid er: TOBIAS MONROY Report Released Date/Time: Mar 30, 2021 09:20 AM Reporting Lab: [facility] [address] [facility] [address] Performing Lab: [facility] [address] [facility] [address] UREA NITROGEN 33 H 7-25 GLUCOSE 160 H 65-100 SODIUM 137 135-145 POTASSIUM 5.1 H 3.5-5.0 CHLORIDE 105 100-110 CO2 21 20-30 CREATININE, Serum 1.46 H 0.50-1.40 eGFR (IDMS) 46 L >60 May 31, 2021 07:19 AM [facility] TSH Specimen Type: SERUM No comment enter ed. Ordering Provid er: TOBIAS MONROY Report Released Date/Time: Mar 30, 2021 09:20 AM Reporting Lab: [address] [address] Performing Lab: [place] [address] [facility] [address] TSH 1.76 0.35-5.00 May 31, 2021 07:19 AM [facility] VITAMIN B12 Specimen Type: SERUM No comment enter ed. Ordering Provid er: TOBIAS MONROY Report Released Date/Time: Mar 30, 2021 09:20 AM Reporting Lab: [facility] [address] [facility] [address] Performing Lab: [address] [address] VITAMIN B12 256 200-900 May 31, 2021 07:19 [facility] MICROALBUMIN CREATININE Spec imen Type: URINE AM RATIO PANEL No comment enter ed. Ordering Provid er: TOBIAS MONROY Report Released Date/Time: Mar 30, 2021 09:20 AM Reporting Lab: [address] [address] Performing Lab: [address] [address] MICROALBUMIN/CREATININE RATIO 780.6 H 0-29.9 MICROALBUMIN,QUANTITATIVE 68.3 RR U NAVAIL CREATININE URINE 87.50 May 31, 2021 07:19 AM [facility] URINALYSIS Specimen Type: URINE Comment: A posi tive ascorbic acid indicates possible interferences with blood, glucose, nitrite and bilirubin. Ordering Provid er: TOBIAS MONROY Report Released Date/Time: Mar 30, 2021 09:20 AM Reporting Lab: [facility] [address] [facility] [address] Performing Lab: [address] [address] UA COLOR Yellow Yellow UA APPEARANCE Clear Clear UA GLUCOSE Negative Negative UA KETONES Negative Neg UA BLOOD Negative Neg UA PROTEIN 100 Neg UA NITRITE Negative Neg UA BILIRUBIN Negative Neg UA SPECIFIC GRAVITY 1.017 1.016-1.02 2 UA pH 5.0 5.0-9.0 UA UROBILINOGEN <2.0 <2.0 UA LEUKOCYTE ESTERASE Negative Neg May 31, 2021 07:19 AM [facility] CBC AND DIFF (AUTO) Speci men Type: BLOOD No comment enter ed. Ordering Provid er: TOBIAS MONROY Report Released Date/Time: Mar 30, 2021 09:20 AM Reporting Lab: [facility] [address] [facility] [address] Performing Lab: [facility] [address] [facility] [address] WBC 10.39 4.50-11.00 RBC 3.73 L 4.23-5.66 HGB 11.7 L 12.8-17 HCT 35.6 L 39.2-50.4 MCV 95.4 82-99 MCHC 32.9 30.8-35.1 PLT 397 H 140-360 RDW-CV 14.1 12.0-16.0 [place], Abs 0.99 0.30-1.10 MCH 31.4 26.2-32.6 Neut % 55.8 Lymph % 26.9 [place] % 9.5 Eos % 6.4 Baso % 0.7 Neut, Abs 5.80 2.20-7.60 Lymph, Abs 2.80 1.00-3.20 Eos, Abs 0.66 H 0.03-0.44 Baso, Abs 0.07 0.01-0.13 Immature Gran % 0.7 Immature Gran, Abs 0.07 H 0.00-0.06 May 31, 2021 07:19 [facility] MICROSCOPIC AUTOMATED, Speci men Type: URINE AM URINE Comment: A posi tive ascorbic acid indicates possible interferences with blood, glucose, nitrite and bilirubin. Ordering Provid er: TOBIAS MONROY Report Released Date/Time: Mar 30, 2021 09:20 AM Reporting Lab: [facility] [address] [facility] [address] Performing Lab: [facility] [address] [facility] [address] UA WBC 0-5 0-5 UA MUCUS FEW Trace UA RBC 0-2 0-3 UA SQUAMOUS EPITH FEW May 31, 2021 07:19 AM [facility] METHADONE SCREEN Specimen Type: URINE Comment: MARY te st are qualitative, any L or H flags only indicate a [facility] alert was sent. Ordering Provid er: TOBIAS MONROY Report Released Date/Time: Apr 04, 2021 09:34 AM Reporting Lab: [address] [address] Performing Lab: [facility] [address] [facility] [address] METHADONE SCREEN None detected(Negative) L Negative May 31, 2021 07:19 AM [facility] ETG SCREEN (wx) Specimen Type: URINE Comment: MARY te st are qualitative, any L or H flags only indicate a [facility] alert was sent. This ETG test was developed and its performance characteristics determined by [place] clinical lab. The [place] Food and Helder g Administration has not approved or cleared this test, FDA clearance or approval is not currently required for clinical use. ETG cutoff 500 ng/mL Ordering Provid er: TOBIAS MONROY Report Released Date/Time: Apr 04, 2021 09:34 AM Reporting Lab: [address] [address] Performing Lab: [facility] [address] [facility] [address] ETG SCREEN (wx) Negative L Negative May 31, 2021 07:19 AM [facility] ALCOHOL, ETHYL URINE Spec imen Type: URINE [...] Apr 04, 2021 09:34 AM Reporting Lab: [address] [address] Performing Lab: [address] [address] ALCOHOL, ETHYL URINE NONE-DETECTED NONE- DETECTED, cutoff = 10 mg/dL PH, MARY 5.9 4-10 CREATININE, MARY 88.10 >20 SP.GRAVITY, MARY 1.017 1.003-1.020 May 31, 2021 07:19 [facility] AMPHETAMINES SCREEN PANEL Sp ecimen Type: URINE [...] Apr 04, 2021 09:34 AM Reporting Lab: [address] [address] Performing Lab: [address] [address] AMPHETAMINES SCREEN NONE-DETECTED None-D etected, Cutoff = 1000 ng/mL PH, MARY 5.9 4-10 CREATININE, MARY 88.10 >20 SP.GRAVITY, MARY 1.017 1.003-1.020 May 31, 2021 07:19 [facility] BENZODIAZEPINES SCREEN PANEL Specimen Type: URINE AM [...] Apr 04, 2021 09:34 AM Reporting Lab: [address] [address] Performing Lab: [address] [address] BENZODIAZEPINES SCREEN NONE-DETECTED Non e-Detected, Cutoff = 200 ng/mL PH, MARY 5.9 4-10 CREATININE, MARY 88.10 >20 SP.GRAVITY, MARY 1.017 1.003-1.020 May 31, 2021 07:19 AM [facility] FENTANYL SCREEN PANEL Spe cimen Type: URINE [...] Apr 04, 2021 09:34 AM Reporting Lab[facility] [address] [facility] [address] Performing [facility]: [facility] [address] [facility] [address] FENTANYL SCREEN NONE-DETECTED Negative: Cutoff = 1.00 ng/mL PH, MARY 5.9 4-10 CREATININE, MARY 85.35 >20 SP.GRAVITY, MARY 1.017 1.003-1.020 May 31, 2021 07:19 [facility] BUPRENORPHINE SCREEN PANEL S pecimen Type: URINE [...] Apr 04, 2021 09:34 AM Reporting Lab: [facility] [place] [facility] [address] [facility] [address] Performing [facility]: [facility] [address] [address] BUPRENORPHINE (URINE) NONE-DETECTED None Detected, Cutoff = 10.0 ng/mL PH, MARY 5.9 4-10 CREATININE, MARY 88.10 >20 SP.GRAVITY, MARY 1.017 1.003-1.020 May 31, 2021 07:19 [facility] CANNABINOIDS SCREEN PANEL Sp ecimen Type: URINE [...] Apr 04, 2021 09:34 AM Reporting Lab: [facility] [address] [facility] [address] Performing [facility]: [facility] [address] [facility] [address] CANNABINOIDS SCREEN NONE-DETECTED None-D etected,Cutoff = 50 ng/mL PH, MARY 5.9 4-10 CREATININE, MARY 88.10 >20 SP.GRAVITY, MARY 1.017 1.003-1.020 May 31, 2021 07:19 AM [facility] COCAINE SCREEN PANEL Spec imen Type: URINE [...] Apr 04, 2021 09:34 AM Reporting Lab: [facility] [place] [facility] [address] [facility] [address] Performing Lab: [facility] [address] [facility] [address] COCAINE SCREEN NONE-DETECTED None-Detect ed,Cutoff = 300 ng/mL PH, MARY 5.9 4-10 CREATININE, MARY 88.10 >20 SP.GRAVITY, MARY 1.017 1.003-1.020 May 31, 2021 07:19 AM [facility] OPIATES SCREEN PANEL Spec imen Type: URINE [...] Apr 04, 2021 09:34 AM Reporting Lab: [facility] [address] [facility] [address] Performing Lab: [address] [address] OPIATES SCREEN NONE-DETECTED None-Detect ed, Cutoff = 300 ng/mL PH, MARY 5.9 4-10 CREATININE, MARY 88.10 >20 SP.GRAVITY, MARY 1.017 1.003-1.020 May 31, 2021 07:19 AM [facility] OXYCODONE SCREEN PANEL Sp ecimen Type: URINE [...] Apr 04, 2021 09:34 AM Reporting Lab: [facility] [address] [facility] [address] Performing Lab: [facility] [address] OXYCODONE SCREEN NONE-DETECTED None-Dete cted, Cutoff = [...] 26, 2020 10:43 AM [place]-TOBACCO FORMER USER [facility] Tobacco Use History This section includes a history of the smoking, or tobacco- related health factors, that were collected on or before the date of the Encounter. The data comes from the [place] facility where the Encounter took place. Date/Time Smoking Status/Tobacco Use Comment Facil it Jul 26, 2020 10:43 AM [place]-TOBACCO QUIT 15 YRS OR [facility] [place] [facility] Advance Directives: All historical and current [...] Encounter. Date/Time Encounter Note(s) Provider Source Jun 07, 2021 10:33 AM [facility] MEDICINE NURSING NOTE: MALISSA SERRA LOCAL TITLE: CLINICAL REMINDERS/NURSING STANDARD TITLE: PREVENTIVE MEDICINE NURSING NOTE DATE OF NOTE: JUN 07, 2021@10:33 ENTRY DATE: JUN 07, 2021@10:33:43 AUTHOR: MALISSA CALERO EXP COSIGNER: URGENCY: STATUS: COMPLETED Tele visit Called at [phone], unable to reach. Unable to remind of upcoming appt, or do clinical reminders /es/ MALISSA CALERO LPN LPN Signed: 06/07/2021 10:34
--- OUTSIDE RECORDS SUMMARY | 2022-04-21 09:14 | XMS_ITS | Encounter Summary ---
:1935 Author Organization [facility] rs Address [address] [place] [address] Support Name Relationship Address Phone BRIAN CHARLES Unavailable [address] [place] [address] BRIAN CHARLES Unavailable [address] [place] [address] BRIAN CHARLES Unavailable [address] [phone] [place] [address] Insurance Providers: All historical and current Section [...] Number Stinson ANTHEM MEDIGAP MEDEX Dec 29, [id number] [phone] Anamika BURLESON PATIENT BCBS OF CT PLAN C 2001 3 SPEEDY ANTHEM MEDICARE MEDEX Dec 29, [id number] [phone] Anamika BURLESON PATIENT BCBS OF CT SUPPLEMEN BRONZ 2001 3 SPEED[place] HERMIN[place] E BCBS [place] MEDICARE MEDEX Dec 29, [id number] [phone] Anamika GONZALES PATIENT SUPPLEMEN BRONZ [id number] SPE[place] E BCBS [place] MEDICARE MED[place] Dec 29, [id number] [phone] Anamika GONZALES PATIENT SUPPLEMEN BRONZ 2001 4 SPEEDY HERMINIA E BCBS OF MEDICARE PSUED May 31, [id number] [phone] Anamika GONZALES PATIENT [place] SUPPLEMEN O [id number] 3 SPEEDY HERMINIA MEDEX BRONZ E BLUE CROSS MEDIGAP MEDEX May 31, [id number] [phone] WHEE LER,R PATIENT BLUE PLAN [place] EAST 1999 05 [id number] OBERT SHIELD OF E [place] MEDICARE MEDICARE PART October 29, PART B [id number] [phone] WHEELE R,R PATIENT (WNR) (M) B 2001 RC08 2 OBERT MEDICARE MEDICARE PART October 29, PART B [id number] [phone] WHEELE R,R PATIENT (WNR) (M) B 2001 85A 00 SPEEDY MEDICARE MEDICARE PART October 29, PART B [id number] [phone] WHEELE R,R PATIENT (WNR) (M) B 2001 RC08 00 SPEEDY MEDICARE MEDICARE PART October 29, PART B [id number] [phone] WHEELE R,R PATIENT (WNR) (M) B 2001 85A 00 OBERT MEDICARE MEDICARE PART October 29, PART B [id number] [phone] WHEELE R,R PATIENT (WNR) (M) B 2001 RC08 00 [facility] MEDICARE MEDICARE PART May 31, PART A [id number] [phone] WHEELE R,R PATIENT (WNR) (M) A 1999 RC08 2 SPEEDY MEDICARE MEDICARE PART May 31, PART A [id number] [phone] WHEELE R,R PATIENT (WNR) (M) A 1999 85A 00 SPEEDY MEDICARE MEDICARE PART May 31, PART A [id number] [phone] WHEELE R,R PATIENT (WNR) (M) A 1999 RC08 00 SPEEDY MEDICARE MEDICARE PART May 31, PART A [id number] [phone] WHEELE R,R PATIENT (WNR) (M) A 1999 85A 00 SPEEDY MEDICARE MEDICARE PART May 31, PART A [id number] [id number] WHEELE R,R PATIENT (WNR) (M) A 1999 RC08 SPEEDY Selected Encounter This section includes the information on record at NH for the Encounter. Date/Time Encounter Type Encounter Reason Provider Source Description Jun 07, 2021 Outpatient TELEPHONE ICD-10-CM E11.9 TOBIAS OMNROY 01:30 PM Encounter PRIMARY CARE Type 2 diabetes mellitus without complications with Provider Comments: Type 2 Diabetes Mellitus without Complications IHE Encounter Template Text not used by NH Assessments - Encounter Diagnoses This section includes the primary and secondary diagnoses documented for the Encounter. Date/Time Primary/Secondary Diagnosis Name Provider Source Diagnosis Jun 07, 2021 PRIMARY Type 2 diabetes TOBIAS MONROY 01:30 PM mellitus without complications Jun 07, 2021 SECONDARY Disorder of kidney TOBIAS MONROY MARCI ELD 01:30 PM and ureter, unspecified Jun 07, 2021 SECONDARY Disorder of the TOBIAS MONROYFIELD 01:30 PM skin and subcutaneous tissue, unspecified Jun 07, 2021 SECONDARY Essential (primary) TOBIAS MONROY IELD 01:30 PM hypertension Jun 07, 2021 SECONDARY Gastro-esophageal TOBIAS MONROYRYNE LD 01:30 PM reflux disease without esophagitis Jun 07, 2021 SECONDARY Hyperlipidemia, TOBIAS MONROYFIELD 01:30 PM unspecified Jun 07, 2021 SECONDARY Other amnesia TOBIAS MONROYFIELD 01:30 PM Jun 07, 2021 SECONDARY Pain in left knee TOBIAS MONROYRYNE LD 01:30 PM Jun 07, 2021 SECONDARY Pain in right knee TOBIAS MONROY ELD 01:30 PM Jun 07, 2021 SECONDARY Personal history of TOBIAS MONROYLamar IELD 01:30 PM colonic polyps Jun 07, 2021 SECONDARY 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 This section includes future appointments and future orders which are active, pending orscheduled.Future Appointments This section includes appointments that were scheduled to occur 6 months from the date of the Encounter, up to a maximum of 20 appointments. The data comes from all NH treatment facilities. Appointment Date/Time Appointment Type Appointment Facili ty Name Oct 26, 2021 01:30 PM AMBULATORY - MEDICINE [facility] LIARMarlen [facility] October 31, 2021 01:30 PM [facility]INE [facility] November 24, 2021 09:00 AM AMBULATORY - MEDICINE [facility] Lab Results: +/- 30 days of the encounter This section includes the Chemistry and Hematology Lab Results on record with NH for the patient. Radiology Reports and Pathology Reports are provided separately, in subsequent sections.Lab Results This section contains the Chemistry/Hematology Results that were resulted 30 days before or 30 daysafter the date of the Encounter. Date/Time Source Result Type Result - Unit Interpretation Reference Range Comment May 31, 2021 07:19 AM [facility] LIPID PANEL FASTING Speci men Type: SERUM No comment enter ed. Ordering Provid er: TOBIAS MONROY Report Released Date/Time: Mar 30, 2021 09:20 AM Reporting Lab: [address] [address] Performing Lab: [address] [address] CHOLESTEROL 144 0-199 TRIGLYCERIDE 93 0-150 LDL calculated 89 0-129 CHOL/HDL 4.0 HDL CHOLESTEROL 36 L 40-60 May 31, 2021 07:19 AM [facility] HEMOGLOBIN A1C PANEL Spec imen Type: BLOOD [...] Mar 30, 2021 09:20 AM Reporting Lab: [address] [address] Performing Lab: [address] [address] HEMOGLOBIN A1C 6.5 H 4.0-5.6 May 31, 2021 07:19 AM [facility] LIVER FUNCTION Specimen Type: SERUM No comment enter ed. Ordering Provid er: TOBIAS MONROY Report Released Date/Time: Mar 30, 2021 09:20 AM Reporting Lab: [facility] [place] [facility] [address] [facility] [address] Performing Lab: [facility] [address] [facility] [address] PROTEIN,TOTAL 6.4 6.0-8.3 ALBUMIN 3.4 L 3.5-5.0 ALKALINE PHOSPHATASE 78 40-150 AST 13 5-34 ALT 15 0-55 BILIRUBIN, TOTAL 0.4 0.2-1.2 May 31, 2021 07:19 AM [facility] BASIC METABOLIC PANEL Spe cimen Type: SERUM (fasting) No comment enter ed. Ordering Provid er: TOBIAS MONROY Report Released Date/Time: Mar 30, 2021 09:20 AM Reporting Lab: [facility] [address] [facility] [address] Performing Lab: [facility] [address] [facility] [address] UREA NITROGEN 33 H 7-25 GLUCOSE 160 H 65-100 SODIUM 137 135-145 POTASSIUM 5.1 H 3.5-5.0 CHLORIDE 105 100-110 CO2 21 20-30 CREATININE, Serum 1.46 H 0.50-1.40 eGFR (IDMS) 46 L >60 May 31, 2021 07:19 AM [facility] TSH Specimen Type: SERUM No comment enter ed. Ordering Provid er: TOBIAS MONROY Report Released Date/Time: Mar 30, 2021 09:20 AM Reporting Lab: [facility] [address] [facility] [address] Performing Lab: [facility] [address] [facility] [address] TSH 1.76 0.35-5.00 May 31, 2021 07:19 AM [facility] VITAMIN B12 Specimen Type: SERUM No comment enter ed. Ordering Provid er: TOBIAS MONROY Report Released Date/Time: Mar 30, 2021 09:20 AM Reporting Lab: [facility] [address] [facility] [address] Performing Lab: [facility] [address] [facility] [address] VITAMIN B12 256 200-900 May 31, 2021 07:19 [facility] MICROALBUMIN CREATININE Spec imen Type: URINE AM RATIO PANEL No comment enter ed. Ordering Provid er: TOBIAS MONROY Report Released Date/Time: Mar 30, 2021 09:20 AM Reporting Lab: [facility] [address] [facility] [address] Performing Lab: [facility] [address] [facility] [address] MICROALBUMIN/CREATININE RATIO 780.6 H 0-29.9 MICROALBUMIN,QUANTITATIVE 68.3 RR U NAVAIL CREATININE URINE 87.50 May 31, 2021 07:19 AM [facility] URINALYSIS Specimen Type: URINE Comment: A posi tive ascorbic acid indicates possible interferences with blood, glucose, nitrite and bilirubin. Ordering Provid er: TOBIAS MONROY Report Released Date/Time: Mar 30, 2021 09:20 AM Reporting Lab: [facility] [address] [facility] [address] Performing Lab: [facility] [address] [facility] [address] UA COLOR Yellow Yellow UA APPEARANCE Clear Clear UA GLUCOSE Negative Negative UA KETONES Negative Neg UA BLOOD Negative Neg UA PROTEIN 100 Neg UA NITRITE Negative Neg UA BILIRUBIN Negative Neg UA SPECIFIC GRAVITY 1.017 1.016-1.02 2 UA pH 5.0 5.0-9.0 UA UROBILINOGEN <2.0 <2.0 UA LEUKOCYTE ESTERASE Negative Neg May 31, 2021 07:19 AM [facility] CBC AND DIFF (AUTO) Speci men Type: BLOOD No comment enter ed. Ordering Provid er: TOBIAS MONROY Report Released Date/Time: Mar 30, 2021 09:20 AM Reporting Lab: [facility] [address] [facility] [address] Performing Lab: [address] [address] WBC 10.39 4.50-11.00 RBC 3.73 L 4.23-5.66 HGB 11.7 L 12.8-17 HCT 35.6 L 39.2-50.4 MCV 95.4 82-99 MCHC 32.9 30.8-35.1 PLT 397 H 140-360 RDW-CV 14.1 12.0-16.0 Wise, Abs 0.99 0.30-1.10 MCH 31.4 26.2-32.6 Neut % 55.8 Lymph % 26.9 Wise % 9.5 Eos % 6.4 Baso % 0.7 Neut, Abs 5.80 2.20-7.60 Lymph, Abs 2.80 1.00-3.20 Eos, Abs 0.66 H 0.03-0.44 Baso, Abs 0.07 0.01-0.13 Immature Gran % 0.7 Immature Gran, Abs 0.07 H 0.00-0.06 May 31, 2021 07:19 [facility] MICROSCOPIC AUTOMATED, Speci men Type: URINE AM URINE Comment: A posi tive ascorbic acid indicates possible interferences with blood, glucose, nitrite and bilirubin. Ordering Provid er: TOBIAS MONROY Report Released Date/Time: Mar 30, 2021 09:20 AM Reporting Lab: [facility] [address] [facility] [address] Performing Lab: [facility] [address] [facility] [address] UA WBC 0-5 0-5 UA MUCUS FEW Trace UA RBC 0-2 0-3 UA SQUAMOUS EPITH FEW May 31, 2021 07:19 AM [facility] ETG SCREEN (wx) Specimen Type: URINE Comment: MARY te st are qualitative, any L or H flags only indicate a [facility] alert was sent. This ETG test was developed and its performance characteristics determined by NH clinical lab. The [place] Food and Helder g Administration has not approved or cleared this test, FDA clearance or approval is not currently required for clinical use. ETG cutoff 500 ng/mL Ordering Provid er: TOBIAS MONROY Report Released Date/Time: Apr 04, 2021 09:34 AM Reporting Lab: [facility] [address] [facility] [address] Performing Lab: [facility] [address] [facility] [address] ETG SCREEN (wx) Negative L Negative May 31, 2021 07:19 AM [facility] METHADONE SCREEN Specimen Type: URINE Comment: MARY te st are qualitative, any L or H flags only indicate a [facility] alert was sent. Ordering Provid er: TOBIAS MONROY Report Released Date/Time: Apr 04, 2021 09:34 AM Reporting Lab: [facility] [address] [facility] [address] Performing Lab: [facility] [address] [facility] [address] METHADONE SCREEN None detected(Negative) L Negative May 31, 2021 07:19 AM [facility] ALCOHOL, ETHYL URINE Spec imen Type: URINE [...] Apr 04, 2021 09:34 AM Reporting Lab: [facility] [address] [facility] [address] Performing Lab: [facility] [address] [facility] [address] ALCOHOL, ETHYL URINE NONE-DETECTED NONE- DETECTED, cutoff = 10 mg/dL PH, MARY 5.9 4-10 CREATININE, MARY 88.10 >20 SP.GRAVITY, MARY 1.017 1.003-1.020 May 31, 2021 07:19 [facility] AMPHETAMINES SCREEN PANEL Sp ecimen Type: URINE [...] Apr 04, 2021 09:34 AM Reporting Lab: [address] [address] Performing Lab: [address] [address] AMPHETAMINES SCREEN NONE-DETECTED None-D etected, Cutoff = 1000 ng/mL PH, MARY 5.9 4-10 CREATININE, MARY 88.10 >20 SP.GRAVITY, MARY 1.017 1.003-1.020 May 31, 2021 07:19 AM [facility] FENTANYL SCREEN PANEL Spe cimen Type: URINE [...] Apr 04, 2021 09:34 AM Reporting Lab: [address] [address] Performing Lab: [address] [address] FENTANYL SCREEN NONE-DETECTED Negative: Cutoff = 1.00 ng/mL PH, MARY 5.9 4-10 CREATININE, MARY 85.35 >20 SP.GRAVITY, MARY 1.017 1.003-1.020 May 31, 2021 07:19 [facility] BENZODIAZEPINES SCREEN PANEL Specimen Type: URINE AM [...] Apr 04, 2021 09:34 AM Reporting Lab: [address] [address] Performing Lab: [address] [address] BENZODIAZEPINES SCREEN NONE-DETECTED Non e-Detected, Cutoff = 200 ng/mL PH, MARY 5.9 4-10 CREATININE, MARY 88.10 >20 SP.GRAVITY, MARY 1.017 1.003-1.020 May 31, 2021 07:19 [facility] BUPRENORPHINE SCREEN PANEL S pecimen Type: URINE [...] Apr 04, 2021 09:34 AM Reporting Lab: [address] [address] Performing Lab: [address] [address] BUPRENORPHINE (URINE) NONE-DETECTED None Detected, Cutoff = 10.0 ng/mL PH, MARY 5.9 4-10 CREATININE, MARY 88.10 >20 SP.GRAVITY, MARY 1.017 1.003-1.020 May 31, 2021 07:19 [facility] CANNABINOIDS SCREEN PANEL Sp ecimen Type: URINE [...] Apr 04, 2021 09:34 AM Reporting Lab: [address] [address] Performing Lab: [address] [address] CANNABINOIDS SCREEN NONE-DETECTED None-D etected,Cutoff = 50 ng/mL PH, MARY 5.9 4-10 CREATININE, MARY 88.10 >20 SP.GRAVITY, MARY 1.017 1.003-1.020 May 31, 2021 07:19 AM [facility] OPIATES SCREEN PANEL Spec imen Type: URINE [...] Apr 04, 2021 09:34 AM Reporting Lab: [address] [address] Performing Lab: [address] [address] OPIATES SCREEN NONE-DETECTED None-Detect ed, Cutoff = 300 ng/mL PH, MARY 5.9 4-10 CREATININE, MARY 88.10 >20 SP.GRAVITY, MARY 1.017 1.003-1.020 May 31, 2021 07:19 AM [facility] COCAINE SCREEN PANEL Spec imen Type: URINE [...] Apr 04, 2021 09:34 AM Reporting Lab: [address] [place] [address] Performing Lab: [facility] [address] [facility] [address] COCAINE SCREEN NONE-DETECTED None-Detect ed,Cutoff = 300 ng/mL PH, MARY 5.9 4-10 CREATININE, MARY 88.10 >20 SP.GRAVITY, MARY 1.017 1.003-1.020 May 31, 2021 07:19 AM [facility] OXYCODONE SCREEN PANEL Sp ecimen Type: URINE [...] Apr 04, 2021 09:34 AM Reporting Lab: [address] [address] Performing Lab: [address] [address] OXYCODONE SCREEN NONE-DETECTED None-Dete cted, Cutoff = 100 ng/mL PH, MARY 5.9 4-10 CREATININE, MARY 88.10 >20 SP.GRAVITY, MARY 1.017 1.003-1.020 Social History: Smoking Status (Most current) and Tobacco Use (All prior to encounter date) This section includes the most current, and the historical, smoking and tobacco-related health factors from the NH facility where the Encounter took place.Current Smoking Status This section includes the most current smoking, or tobacco-related health factor, from the NH facility where the Encounter took place. Date/Time Current Smoking Status Comment Facility Jul 16, 2018 10:34 AM NH-TOBACCO QUIT 15 YRS OR MORE [facility] Tobacco Use History This section includes a history of the smoking, or tobacco- related health factors, that were collected on or before the date of the Encounter. The data comes from the NH facility where the Encounter took place. Date/Time Smoking Status/Tobacco Use Comment Rm tyson Jul 16, 2018 10:34 AM VA-TOBACCO QUIT 15 YRS OR JAKE MORE Aug 16, 2017 09:44 AM QUIT TOBACCO USE > 7 YEARS JAKE AGO vet quit 30 years ago Sep 13, 2016 02:56 PM QUIT TOBACCO USE > 7 YEARS JAKE AGO quit 30 years ago Jul 25, 2015 12:44 PM QUIT TOBACCO USE > 7 YEARS JAKE AGO Feb 05, 2005 01:52 PM HISTORY OF SMOKING SHERRELL CHAUDHARY Patient states he quit smoking 1 8 years ago. Sep 27, 2003 08:09 AM HISTORY OF SMOKING SHERRELL CHAUDHARY stopped tobacco 20 years ago May 25, 2002 08:00 AM HISTORY OF SMOKING SHERRELL CHAUDHARY Stopped tobacco 16 years ago Sep 26, 2001 11:28 AM QUIT TOBACCO USE > 7 YEARS JAKE AGO Jan 24, 2001 09:14 AM HISTORY OF SMOKING SHERRELL CHAUDHARY quit 16 years Advance Directives: All historical and current Section Date Range: From patient's date of to the date document was created. This section includes ALL of a patient's completed or amended NH Advance and Rescinded Directives. The entries below indicate that a directive exists for the patient, but an actual copy is not included with this document. The data comes from all NH facilities. Date Advance Directives Provider Source May 20, 2006 ADVANCE DIRECTIVE SHUKLABAYLEE JAKE Encounter Notes: All associated encounter notes This section contains the clinical notes associated to the Encounter. Date/Time Encounter Note(s) Provider Source Jun 07, 2021 01:43 PM PHYSICIAN NOTE: TOBIAS MONROY LOCAL TITLE: NOTE STANDARD TITLE: PHYSICIAN NOTE DATE OF NOTE: JUN 07, 2021@13:43 ENTRY DATE: JUN 07, 2021@13:43:18 AUTHOR: TOBIAS MONROY EXP COSIGNER: URGENCY: STATUS: COMPLETED Patient Name: MART BURLESON VITALS: Patient temperature: 97.2 F [36.2 C] (07/26/2020 10:50) Blood pressure: 176/64 (07/26/2020 10:50) Patient height: 71 in [180.3 cm] (07/16/2019 09: 28) Patient weight: 248 lb [112.7 kg] (07/26/2020 10 :50) Patient BMI: BMI: 34.7 Patient pulse: 90 (07/26/2020 10:50) Patient respiration: 20 (07/26/2020 10:50) Pain Ratin (07/26/2020 10:50) Active [facility] Medications: Active Outpatient Medicat ions (including Supplies): Active Outpatient Medications Status 1) ACCU-CHEK GUIDE (GLUCOSE) TEST STRIP USE 1 ST RIP TO ACTIVE TEST BLOOD SUGARS ONCE DAILY NEEDED [NEW YEHUDA HAILEY OF TEST STRIP TO USE WITH GUIDE ME METER] 2) ALBUTEROL 100/IPRATRO 20MCG 120D PO INHL INHA LE 1 ACTIVE PUFF BY MOUTH EVERY 6 HOURS NEEDED FOR BREAT LORA 3) DILTIAZEM (EQV-TIAZAC) 240MG 24HR CAP TAKE ON E ACTIVE CAPSULE BY MOUTH ONCE DAILY 4) DOXAZOSIN MESYLATE 2MG TAB TAKE ONE TABLET BY MOUTH ACTIVE ONCE DAILY 5) FUROSEMIDE 20MG TAB TAKE ONE TABLET BY MOUTH EVERY ACTIVE DAY TO REMOVE FLUID/CONTROL BLOOD PRESSURE 6) LORATADINE 10MG TAB TAKE ONE TABLET BY MOUTH ONCE ACTIVE DAILY NEEDED FOR ALLERGY 7) METFORMIN HCL 500MG TAB TAKE ONE TABLET BY MO UTH ACTIVE TWICE DAILY FOR DIABETES 8) MOMETASONE FUROATE 220MCG ORAL INHL 60 INHALE 2 PUFFS ACTIVE BY MOUTH TWICE DAILY --RINSE MOUTH AFTER EACH U SE 9) OMEPRAZOLE 20MG CAP,EC TAKE ONE CAPSULE BY MO UTH ACTIVE DAILY 10) PSYLLIUM SF ORAL PWD PKT TAKE 2 PACKETS BY M OUTH ONCE ACTIVE DAILY (MIX WITH AT LEAST 8OZ. OF WATER OR OTHER FLUID) 11) SIMVASTATIN 40MG TAB TAKE ONE-HALF TABLET BY MOUTH AT ACTIVE BEDTIME 12) TRAMADOL HCL 50MG TAB TAKE ONE TABLET BY YANN TH EVERY ACTIVE 12 HOURS NEEDED 13) VALSARTAN 320MG TAB TAKE ONE TABLET BY MOUTH DAILY ACTIVE *THIS IS A HIGHER DOSE* 14) ZAFIRLUKAST 20MG TAB TAKE ONE TABLET BY MOUT H TWICE ACTIVE DAILY Active Non-VA Medications Status 1) Non-VA ASPIRIN 81MG EC TAB 81MG BY MOUTH ACTI VE 2) Non-VA MULTIVITAMIN/MINERALS CAP/TAB 1 TABLET BY ACTIVE MOUTH 3) Non-VA OTHER CAP/TAB EITHER CELEBREX,NAPROSYN OR ACTIVE IBUPROFEN TWICE DAILY 4) Non-VA OTHER CAP/TAB NEXIUM 40MG DAILY ACTIVE 18 Total Medications Remote Medications: Active Medications from [employer] Data I contacted Mr. Burleson by telephone tokendal mchugh for a f/u appt. He continues to see Dr. Trisha Sheets at the [facility] every 6 months. Active issues: CC--1. Tachycardia/Diastolic dysfunction : At our last visit 10 months ago, the patient had been switched fr om atenolol to diltiazem and was mildly tachycardic. Since this time, his antihypertensive ayala s been switched again to valsartan. He does not notice his heart rate and, unfortunatel y, cannot tell me his falls today. 2. DM: Recent A1c 6.5. He has close following [facility] ophthalmology for macular degeneration. 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 No significant neuropathy. He continues metformin 500 mg twice a day. 3. Asthma: Respiratory status is stable. He cont inues accolate along w/ Combivent and mometasone inh nadiya. No exacerbations over the last several years. 4. Hyperlipidemia: Recent LDL 89. Takes Simvasta tin 20 mg/d 5. GERD: continues omeprazole. No problems 6. History of colonic polyps: His last colonosco py was in 2009 and showed diverticuli, no polyps. He has decided to stop s urveilance. 7. Htn: As noted above, he is now taking valsart an 320 mg daily as his antihypertensive. He continues furosemide 20 mg daily as well. Followed by an outside engineering surveyor, Dr. Roberson. He says pre ssures have been good when checked at outside offices; but he does not chec k at home. 8. 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 Ta oralia maximal dose of valsartan. He is allergic to simon inhibit ors. Creatinine has crept up over the last 2 years and is now 1.46, up from p rior 1.30. 9. Skin lesions: I referred the patient to kailey ruvalcaba for two 1 cm crusted shallow ulcers at the buttock crease. These had not responded to antibiotics but, the dermatology marketing regional consultant apparently felt infection remained a likely cause and has been treating the patient with mupirocin plus clotrimazole for a number of months. The ulcers are now much improv ed although still there. I recommended to the patient t hat he contact the field cashier if the lesions fail to resolve in another 2 months. 10. Macular degeneration: Followed regularly by flight line service attendant, Dr. Carbajal. Vision is currently stable. Left is wet and has benefitted from ongoing injections. OD is dr gant. He has appointments there every 4 to 6 weeks for eye injections. 11. 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 No recurrence or suggestive neurologic symptoms since.We did not discuss. 12. Knee pain/s/p TKR: He has pain both in the r eplaced left knee and in his southern ute right knee. He no longer gets rel ief from the injections of any sort in the right knee. Tramadol remains helpful. Given the problems he has had with the left TKR he does not want to consider surger y for the right. The patient will return for a [id number]-xb-jpaw follo w-up visit in 4 months Total telephone time 26 minutes /selam/ TOBIAS MONROY M.D., PH.D. STAFF PHYSICIAN Signed: 06/07/2021 22:36
--- OUTSIDE RECORDS SUMMARY | 2022-04-21 09:14 | XMS_ITS | Encounter Summary ---
:1935 Author Organization [facility] Address [address] [place] [id number] Support Name Relationship Address Phone BRIAN CHARLES Unavailable [address] [place] [address] BRIAN CHARLES Unavailable [address] [place] [address] BRIAN CHARLES Unavailable [address] [phone] [place] [address] Insurance Providers: All historical and current Section [...] Number [place] ANTHEM MEDIGAP MEDEX Dec 29, [id number] [phone] Anamika WALSH PATIENT BCBS OF CT PLAN C 2001 3 SPEEDY ANTHEM MEDICARE MEDEX Dec 29, [id number] [phone] Anamika WALSH PATIENT BCBS OF CT SUPPLEMEN BRON 2001 3 SPEEDY HERMINIA E BCBS ID MEDICARE MEDEX Dec 29, [id number] [phone] Anamika GONZALES PATIENT SUPPLEMEN BRONZ 2001 4 SPEEDY [place] E BCBS ID MEDICARE MEDEX Dec 29, [id number] [phone] Anamika GONZALES PATIENT SUPPLEMEN BRONZ 2001 4 SPEEDY [place] E BCBS OF MEDICARE PSUED May 31, [id number] [phone] Anamika GONZALES PATIENT MASS SUPPLEMEN O 1999 3 SPEEDY HERMINIA MEDEX BRONZ E BLUE CROSS MEDIGAP MEDEX May 31 [id number] [phone] WHEE LER,R PATIENT BLUE [facility] [place] EAST 1999 05 [id number] SPEEDY SHIELD [facility] MEDICARE MEDICARE PART October 29, PART B [id number] WHEELE R,R PATIENT (WNR) (M) B 2001 RC08 2 SPEEDY MEDICARE MEDICARE PART October 29, PART B [id number] [phone] WHEELE R,R PATIENT (WNR) (M) B 2001 85A 00 SPEEDY MEDICARE MEDICARE PART October 29, PART B [id number] WHEELE R,R PATIENT (WNR) (M) B 2001 RC08 00 SPEEDY MEDICARE MEDICARE PART October 29, PART B [id number] [phone] WHEELE R,R PATIENT (WNR) (M) B 2001 85A 00 SPEEDY MEDICARE MEDICARE PART October 29, PART B [id number] WHEELE R,R PATIENT (WNR) (M) B 2001 RC08 00 SPEEDY MEDICARE MEDICARE PART May 31, PART A [id number] WHEELE R,R PATIENT (WNR) (M) A 1999 RC08 2 SPEEDY MEDICARE MEDICARE PART May 31, PART A [id number] [id number] WHEELE R,R PATIENT (WNR) (M) A 1999 85A 00 SPEEDY MEDICARE MEDICARE PART May 31, PART A [id number] [id number] WHEELE R,R PATIENT (WNR) (M) A 1999 RC08 00 SPEEDY MEDICARE MEDICARE PART May 31, PART A [id number] [id number] WHEELE R,R PATIENT (WNR) (M) A 1999 85A 00 SPEEDY MEDICARE MEDICARE PART May 31, PART A [id number] [id number] WHEELE R,R PATIENT (WNR) (M) A 1999 RC08 00 SPEEDY Selected Encounter This section includes the information on record at NH for the Encounter. Date/Time Encounter Type Encounter Description Reason Provider Source May 16, 2021 02:59 Outpatient Encounter PRIMARY CARE/MEDICINE PM [facility] Encounter Template Text not used by NH Plan of Treatment: Future Appointments (+ 6 [...] Date/Time Appointment Type Appointment Facili ty Name May 20, 2021 09:15 AM AMBULATORY - MEDICINE [facility] Jun 07, 2021 01:30 PM AM[facility] - [facility]ICINE [facility] Oct 26, 2021 01:30 PM AMBULATORY MEDICINE [facility] October 31, 2021 01:30 PM AMBULATORY MEDICINE [facility] Lab Results: +/- 30 days of the [...] Range Comment May 31, 2021 07:19 AM [facility] LIPID PANEL FASTING Speci men Type: SERUM No comment enter ed. Ordering Provid er: TOBIAS MONROY Report Released Date/Time: Mar 30, 2021 09:20 AM Reporting Lab: [address] [address] Performing Lab: [address] [address] CHOLESTEROL 144 0-199 TRIGLYCERIDE 93 0-150 LDL calculated 89 0-129 CHOL/HDL 4.0 HDL CHOLESTEROL 36 L 40-60 May 31, 2021 07:19 AM [facility] LIVER FUNCTION Specimen Type: SERUM No comment enter ed. Ordering Provid er: TOBIAS MONROY Report Released Date/Time: Mar 30, 2021 09:20 AM Reporting Lab: [address] [address] Performing Lab: [address] [place] [address] PROTEIN,TOTAL 6.4 6.0-8.3 ALBUMIN 3.4 L 3.5-5.0 ALKALINE PHOSPHATASE 78 40-150 AST 13 5-34 ALT 15 0-55 BILIRUBIN, TOTAL 0.4 0.2-1.2 May 31, 2021 07:19 AM [facility] HEMOGLOBIN A1C PANEL Spec imen Type: BLOOD Comment: Testin g performed [facility] certified Rain Enzymatic with CV <2%. The [...] Mar 30, 2021 09:20 AM Reporting Lab: [address] [address] Performing Lab: [address] [address] HEMOGLOBIN A1C 6.5 H 4.0-5.6 May 31, 2021 07:19 AM [facility] BASIC METABOLIC PANEL Spe cimen Type: SERUM (fasting) No comment enter ed. Ordering Provid er: TOBIAS MONROY Report Released Date/Time: Mar 30, 2021 09:20 AM Reporting Lab: [address] [address] Performing Lab: [address] [address] UREA NITROGEN 33 H 7-25 GLUCOSE 160 H 65-100 SODIUM 137 135-145 POTASSIUM 5.1 H 3.5-5.0 CHLORIDE 105 100-110 CO2 21 20-30 CREATININE, Serum 1.46 H 0.50-1.40 eGFR (IDMS) 46 L >60 May 31, 2021 07:19 AM [facility] TSH Specimen Type: SERUM No comment enter ed. Ordering Provid er: TOBIAS MONROY Report Released Date/Time: Mar 30, 2021 09:20 AM Reporting Lab: [address] [place] [address] Performing Lab: [place] [facility] [place] [facility] [address] [facility] [address] TSH 1.76 0.35-5.00 May 31, 2021 07:19 AM [facility] VITAMIN B12 Specimen Type: SERUM No comment enter ed. Ordering Provid er: TOBIAS MONROY Report Released Date/Time: Mar 30, 2021 09:20 AM Reporting Lab: [facility] [place] [facility] [address] [facility] [address] Performing Lab: [facility] [address] [facility] [address] VITAMIN B12 256 200-900 May 31, 2021 07:19 [facility] MICROALBUMIN CREATININE Spec imen Type: URINE AM RATIO PANEL No comment enter ed. Ordering Provid er: TOBIAS MONROY Report Released Date/Time: Mar 30, 2021 09:20 AM Reporting Lab: [facility] [place] [facility] [address] [facility] [address] Performing Lab: [facility] [address] [facility] [address] MICROALBUMIN/CREATININE RATIO 780.6 H 0-29.9 MICROALBUMIN,QUANTITATIVE 68.3 RR U NAVAIL CREATININE URINE 87.50 May 31, 2021 07:19 AM [facility] CBC AND DIFF (AUTO) Speci men Type: BLOOD No comment enter ed. Ordering Provid er: TOBIAS MONROY Report Released Date/Time: Mar 30, 2021 09:20 AM Reporting Lab: [place] [facility] [place] [facility] [address] [facility] [address] Performing Lab: [place] [facility] [place] [facility] [address] [facility] [address] WBC 10.39 4.50-11.00 RBC 3.73 L 4.23-5.66 HGB 11.7 L 12.8-17 HCT 35.6 L 39.2-50.4 MCV 95.4 82-99 MCHC 32.9 30.8-35.1 PLT 397 H 140-360 RDW-CV 14.1 12.0-16.0 Bracken, Abs 0.99 0.30-1.10 MCH 31.4 26.2-32.6 Neut % 55.8 Lymph % 26.9 Bracken % 9.5 Eos % 6.4 Baso % 0.7 Neut, Abs 5.80 2.20-7.60 Lymph, Abs 2.80 1.00-3.20 Eos, Abs 0.66 H 0.03-0.44 Baso, Abs 0.07 0.01-0.13 Immature Gran % 0.7 Immature Gran, Abs 0.07 H 0.00-0.06 May 31, 2021 07:19 AM [facility] URINALYSIS Specimen Type: URINE Comment: A posi tive ascorbic acid indicates possible interferences with blood, glucose, nitrite and bilirubin. Ordering Provid er: TOBIAS MONROY Report Released Date/Time: Mar 30, 2021 09:20 AM Reporting Lab: [address] [address] Performing Lab: [address] [address] UA COLOR Yellow Yellow UA APPEARANCE Clear Clear UA GLUCOSE Negative Negative UA KETONES Negative Neg UA BLOOD Negative Neg UA PROTEIN 100 Neg UA NITRITE Negative Neg UA BILIRUBIN Negative Neg UA SPECIFIC GRAVITY 1.017 1.016-1.02 2 UA pH 5.0 5.0-9.0 UA UROBILINOGEN <2.0 <2.0 UA LEUKOCYTE ESTERASE Negative Neg May 31, 2021 07:19 [facility] MICROSCOPIC AUTOMATED, Speci men Type: URINE AM URINE Comment: A posi tive ascorbic acid indicates possible interferences with blood, glucose, nitrite and bilirubin. Ordering Provid er: TOBIAS MONROY Report Released Date/Time: Mar 30, 2021 09:20 AM Reporting Lab: [address] [address] Performing Lab: [address] [address] UA WBC 0-5 0-5 UA MUCUS FEW Trace UA RBC 0-2 0-3 UA SQUAMOUS EPITH FEW May 31, 2021 07:19 AM [facility] ETG SCREEN (wx) Specimen Type: URINE Comment: [...] Apr 04, 2021 09:34 AM Reporting Lab: [address] [address] Performing Lab: [facility] [address] [facility] [address] ETG SCREEN (wx) Negative L Negative May 31, 2021 07:19 AM [facility] METHADONE SCREEN Specimen Type: URINE Comment: MARY te st are qualitative, any L or H flags only indicate a [facility] alert was sent. Ordering Provid er: TOBIAS MONROY Report Released Date/Time: Apr 04, 2021 09:34 AM Reporting Lab: [address] [address] Performing Lab: [facility] [address] [facility] [address] METHADONE SCREEN None detected(Negative) L Negative May 31, 2021 07:19 [facility] AMPHETAMINES SCREEN PANEL Sp ecimen Type: URINE [...] Apr 04, 2021 09:34 AM Reporting Lab: [address] [address] Performing Lab: [address] [address] AMPHETAMINES SCREEN NONE-DETECTED None-D etected, Cutoff = 1000 ng/mL PH, MARY 5.9 4-10 CREATININE, MARY 88.10 >20 SP.GRAVITY, MARY 1.017 1.003-1.020 May 31, 2021 07:19 AM [facility] FENTANYL SCREEN PANEL Spe cimen Type: URINE [...] Apr 04, 2021 09:34 AM Reporting Lab: [address] [address] Performing Lab: [address] [address] FENTANYL SCREEN NONE-DETECTED Negative: Cutoff = 1.00 ng/mL PH, MARY 5.9 4-10 CREATININE, MARY 85.35 >20 SP.GRAVITY, MARY 1.017 1.003-1.020 May 31, 2021 07:19 AM [facility] ALCOHOL, ETHYL URINE Spec imen Type: URINE [...] Apr 04, 2021 09:34 AM Reporting Lab: [address] [address] Performing Lab: [address] [address] ALCOHOL, ETHYL URINE NONE-DETECTED NONE- DETECTED, cutoff = 10 mg/dL PH, MARY 5.9 4-10 CREATININE, MARY 88.10 >20 SP.GRAVITY, MARY 1.017 1.003-1.020 May 31, 2021 07:19 [facility] BENZODIAZEPINES SCREEN PANEL Specimen Type: URINE AM [...] Apr 04, 2021 09:34 AM Reporting Lab: [address] [address] Performing Lab: [address] [address] BENZODIAZEPINES SCREEN NONE-DETECTED Non e-Detected, Cutoff = 200 ng/mL PH, MARY 5.9 4-10 CREATININE, MARY 88.10 >20 SP.GRAVITY, MARY 1.017 1.003-1.020 May 31, 2021 07:19 [facility] BUPRENORPHINE SCREEN PANEL S pecimen Type: URINE [...] Apr 04, 2021 09:34 AM Reporting Lab: [address] [address] Performing Lab: [address] [address] BUPRENORPHINE (URINE) NONE-DETECTED None Detected, Cutoff = 10.0 ng/mL PH, MARY 5.9 4-10 CREATININE, MARY 88.10 >20 SP.GRAVITY, MARY 1.017 1.003-1.020 May 31, 2021 07:19 AM [facility] OPIATES SCREEN PANEL Spec imen Type: URINE [...] Apr 04, 2021 09:34 AM Reporting Lab: [address] [address] Performing Lab: [address] [address] OPIATES SCREEN NONE-DETECTED None-Detect ed, Cutoff = 300 ng/mL PH, MARY 5.9 4-10 CREATININE, MARY 88.10 >20 SP.GRAVITY, MARY 1.017 1.003-1.020 May 31, 2021 07:19 [facility] CANNABINOIDS SCREEN PANEL Sp ecimen Type: URINE [...] Apr 04, 2021 09:34 AM Reporting Lab: [facility] [employer] [address] Performing Lab: [address] [address] CANNABINOIDS SCREEN NONE-DETECTED None-D etected,Cutoff = 50 ng/mL PH, MARY 5.9 4-10 CREATININE, MARY 88.10 >20 SP.GRAVITY, MARY 1.017 1.003-1.020 May 31, 2021 07:19 AM [facility] COCAINE SCREEN PANEL Spec imen Type: URINE [...] Apr 04, 2021 09:34 AM Reporting Lab: [facility] [address] [facility] [address] Performing Lab: [address] [address] COCAINE SCREEN NONE-DETECTED None-Detect ed,Cutoff = 300 ng/mL PH, MARY 5.9 4-10 CREATININE, MARY 88.10 >20 SP.GRAVITY, MARY 1.017 1.003-1.020 May 31, 2021 07:19 AM [facility] OXYCODONE SCREEN PANEL Sp ecimen Type: URINE [...] Apr 04, 2021 09:34 AM Reporting Lab: [facility] [address] [facility] [address] Performing Lab: [address] [address] OXYCODONE SCREEN NONE-DETECTED None-Dete cted, Cutoff = [...] Comment Facility Jul 26, 2020 10:43 AM [facility]-TOBACCO FORMER USER [facility] Tobacco Use History This section includes a history of the smoking, or tobacco- related health factors, that were collected on or before the date of the Encounter. The data comes from the NH facility where the Encounter took place. Date/Time Smoking Status/Tobacco Use Comment [facility] Jul 26, 2020 10:43 AM NH-TOBACCO QUIT 15 YRS OR [facility] Advance Directives: All historical and current [...] Encounter. Date/Time Encounter Note(s) Provider Source May 16, 2021 02:59 PM ADMINISTRATIVE NOTE: ADAM MATA [facility] TITLE: ADMINISTRATIVE NOTE STANDARD TITLE: ADMINISTRATIVE NOTE DATE OF NOTE: MAY 16, 2021@14:59 ENTRY DATE: MAY 16, 2021@15:00 AUTHOR: ADAM MATA EXP COSIGNER: URGENCY: STATUS: COMPLETED ADMINISTRATIVE NOTE Has ADDENDA TELEPHONE CALL - Scheduling PCP appointment [facility] record with respect to receipt of COVID- 19 vaccination [ ] No indication of receipt [X} Received at or via [facility] [ ] Received at another [place] facility [ ] Received in the community PATIENT PHONE - PHONE NUMBER [CELLULAR] - NONE FOUND PURPOSE OF CALL: [ ] schedule primary care appointment [X} reschedule primary care appointment [X] Offer to schedule COVID-19 BOOSTER (1/2 dose ) Vaccination appointment Sales Service Route Manager called [facility] - RESULTS OF CALL: [X} SUCCESSFUL CONTACT: [ ] UNABLE TO SCHEDULE an appointment [X} Scheduled subject PC appointment [X] Scheduled CWM/SO/COVID VACCINE BOOSTER appointment === === DETAILS OF CALL: [X} Spoke with [facility]'s identity actively confirmed by: [X} Full name [X} Complete date of [ ] Full Social Security Number Re: COVID-19 VACCINATION STATUS [X] Sales Service Route Manager negotiated with respondent, and sched uled subject PCP appointment for . [X] Reminded respondent that wearing of masks is mandatory in [facility] facilities, and that an d any other visitor wear mask to any appointment, lab oratory testing, or other activies in [facility], as [facility] does not issue masks. [X] Letter mailed as appointment reminder. [X] Confirmed 's mailing address. [X] Respondent requests a CWM/SO/COVID BOOSTER V ACCINE appointment. [ ] Sales Service Route Manager negotiated with respondent, and sched uled CWM/SO/COVID BOOSTER VACCINE appointment for Ve deal. [ ] Reminded respondent that wearing of masks is mandatory in [facility] facilities, and that an d any other visitor wear mask to any appointment, lab oratory testing, or other activies in [facility], as [facility] does not issue masks. [ ] Letter mailed as appointment reminder. 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 PACT 2 clinical staff kindly enter / review lab orders as necessary. /selam/ ADAM RINCON, [facility], [facility] Signed: 05/16/2021 15:27 Receipt Acknowledged By: 05/17/2021 20:17 /selam/ TANYA LUO RN-BC REGISTERED NURSE 05/17/2021 ADDENDUM STATUS: COMPLETED fasting lab orders are already in place /selam/ TANYA LUO RN-BC REGISTERED NURSE Signed: 05/17/2021 20:18
--- OUTSIDE RECORDS SUMMARY | 2022-04-21 09:14 | XMS_ITS | Encounter Summary ---
:1935 Author Organization [facility] rs Address [address] [place] [address] Support Name Relationship Address Phone BRIAN CHARLES Unavailable [address] [place] [address] BRIAN CHARLES Unavailable [address] [place] [address] BRIAN CHARLES Unavailable [address] [phone] [place] [address] Insurance Providers: All historical and current Section [...] Number Stinson ANTHEM MEDIGAP MEDEX Dec 29, [id number] [phone] Anamika WALSH PATIENT BCBS OF CT PLAN C 2001 3 SPEEDY ANTHEM MEDICARE MEDEX Dec 29, [id number] [phone] Anamika WALSH PATIENT BCBS OF CT SUPPLEMEN BRON 2001 3 SPEEDY [place] E BCBS [place] MED[place] Dec 29, [id number] [phone] Anamika GONZALES PATIENT SUPPLEMEN BRONZ [id number] SPEED[place] Dec 29, [id number] [phone] Anamika GONZALES PATIENT SUPPLEMEN BRONZ 2001 4 SPEEDY HER[place] E BCBS OF MEDICARE PSUED May 31, [id number] [phone] Anamika GONZALES PATIENT [place] SUPPLEMEN O [id number] 3 SPEEDY HERMINIA MEDEX BRONZ E BLUE CROSS MEDIGAP MEDEX May 31, [id number] WHEE LER,R PATIENT BLUE PLAN [place] EAST 1999 05 [id number] OBERT SHIELD OF E [place] MEDICARE MEDICARE PART October 29, PART B [id number] [phone] WHEELE R,R PATIENT (WNR) (M) B 2001 RC08 2 OBERT MEDICARE MEDICARE PART October 29, PART B [id number] [phone] WHEELE R,R PATIENT (WNR) (M) B 2001 85A 00 OBERT MEDICARE MEDICARE PART October 29, PART B [id number] [phone] WHEELE R,R PATIENT (WNR) (M) B 2001 RC08 00 OBERT MEDICARE MEDICARE PART October 29, PART B [id number] [phone] WHEELE R,R PATIENT (WNR) (M) B 2001 85A 00 OBERT MEDICARE MEDICARE PART October 29, PART B [id number] [phone] WHEELE R,R PATIENT (WNR) (M) B 2001 RC08 00 OBERT MEDICARE MEDICARE PART May 31, PART A [id number] [phone] WHEELE R,R PATIENT (WNR) (M) A 1999 RC08 2 OBERT MEDICARE MEDICARE PART May 31, PART A [id number] [phone] WHEELE R,R PATIENT (WNR) (M) A 1999 85A 00 OBERT MEDICARE MEDICARE PART May 31, PART A [id number] [phone] WHEELE R,R PATIENT (WNR) (M) A 1999 RC08 00 SPEEDY MEDICARE MEDICARE PART May 31, PART A [id number] [id number] WHEELE R,R PATIENT (WNR) (M) A 1999 85A 00 SPEEDY MEDICARE MEDICARE PART May 31, PART A [id number] [phone] WHEELE R,R PATIENT (WNR) (M) A 1999 RC08 SPEEDY Selected Encounter This section includes the information on record at [facility] for the Encounter. Date/Time Encounter Type Encounter Reason Provider Source Description May 20, 2021 ADM SARSCOV2 PRIMARY ICD-10-CM Z23 NORMA OSBORN 09:15 AM 50MCG/0.25MLBST CARE/MEDICINE Encounter for N immunization with Provider Comments: Encounter for Immunization IHE Encounter Template Text not used by [facility] Assessments - Encounter Diagnoses This section includes the primary and secondary diagnoses documented for the Encounter. Date/Time Primary/Secondary Diagnosis Name Provider Source Diagnosis May 20, 2021 PRIMARY Encounter for MAURO OSBORN [facility] 09:53 AM immunization Plan of Treatment: Future Appointments (+ 6 months) and Future Tests (+/- 45 days) The Plan of Treatment section includes future care activities for the patient from all [facility] treatmentfacilities. This section includes future appointments and future orders which are active, pending orscheduled.Future Appointments This section includes appointments that were scheduled to occur 6 months from the date of the Encounter, up to a maximum of 20 appointments. The data comes from all [facility] treatment facilities. Appointment Date/Time Appointment Type Appointment Facili ty Name Jun 07, 2021 01:30 PM AMBULATORY - MEDICINE [facility] Oct 26, 2021 01:30 PM AMBULATORY MEDICINE [facility] October 31, 2021 01:30 PM AMBULATORY MEDICINE [facility] Lab Results: +/- 30 days of the encounter This section includes the Chemistry and Hematology Lab Results on record with [facility] for the patient. Radiology Reports and Pathology Reports are provided separately, in subsequent sections.Lab Results This section contains the Chemistry/Hematology Results that were resulted 30 days before or 30 daysafter the date of the Encounter. Date/Time Source Result Type Result - Unit Interpretation Reference Range Comment May 31, 2021 07:19 AM [facility] BASIC METABOLIC PANEL Spe cimen Type: SERUM (fasting) No comment enter ed. Ordering Provid er: TOBIAS MONROY Report Released Date/Time: Mar 30, 2021 09:20 AM Reporting Lab: [facility] [address] [facility] [address] Performing Lab: [facility] [address] [facility] [address] UREA NITROGEN 33 H 7-25 GLUCOSE 160 H 65-100 SODIUM 137 135-145 POTASSIUM 5.1 H 3.5-5.0 CHLORIDE 105 100-110 CO2 21 20-30 CREATININE, Serum 1.46 H 0.50-1.40 eGFR (IDMS) 46 L >60 May 31, 2021 07:19 AM [facility] LIPID PANEL FASTING Speci men Type: SERUM No comment enter ed. Ordering Provid er: TOBIAS MONROY Report Released Date/Time: Mar 30, 2021 09:20 AM Reporting Lab: [facility] [place] [address] [facility] [address] Performing Lab: [facility] [place] [facility] [address] [facility] [address] CHOLESTEROL 144 0-199 TRIGLYCERIDE 93 0-150 LDL calculated 89 0-129 CHOL/HDL 4.0 HDL CHOLESTEROL 36 L 40-60 May 31, 2021 07:19 AM [facility] LIVER FUNCTION Specimen Type: SERUM No comment enter ed. Ordering Provid er: TOBIAS MONROY Report Released Date/Time: Mar 30, 2021 09:20 AM Reporting Lab: [facility] [place] [facility] [address] [facility] [address] Performing Lab: [facility] [address] [facility] [address] PROTEIN,TOTAL 6.4 6.0-8.3 ALBUMIN 3.4 L 3.5-5.0 ALKALINE PHOSPHATASE 78 40-150 AST 13 5-34 ALT 15 0-55 BILIRUBIN, TOTAL 0.4 0.2-1.2 May 31, 2021 07:19 AM [facility] TSH Specimen Type: SERUM No comment enter ed. Ordering Provid er: TOBIAS MONROY Report Released Date/Time: Mar 30, 2021 09:20 AM Reporting Lab: [facility] [place] [facility] [address] [facility] [address] Performing Lab: [facility] [place] [facility] [address] [facility] [address] TSH 1.76 0.35-5.00 May 31, 2021 07:19 AM [facility] VITAMIN B12 Specimen Type: SERUM No comment enter ed. Ordering Provid er: TOBIAS MONROY Report Released Date/Time: Mar 30, 2021 09:20 AM Reporting Lab: [facility] [place] [facility] [address] [facility] [address] Performing Lab: [facility] [place] [facility] [address] [facility] [address] VITAMIN B12 256 200-900 May 31, 2021 07:19 [facility] MICROALBUMIN CREATININE Spec imen Type: URINE AM RATIO PANEL No comment enter ed. Ordering Provid er: TOBIAS MONROY Report Released Date/Time: Mar 30, 2021 09:20 AM Reporting Lab: [facility] [address] [facility] [address] Performing Lab: [facility] [address] [facility] [address] MICROALBUMIN/CREATININE RATIO 780.6 H 0-29.9 MICROALBUMIN,QUANTITATIVE 68.3 RR U NAVAIL CREATININE URINE 87.50 May 31, 2021 07:19 AM [facility] HEMOGLOBIN A1C PANEL Spec imen Type: BLOOD [...] Mar 30, 2021 09:20 AM Reporting Lab: [facility] [address] [facility] [address] Performing Lab: [address] [address] HEMOGLOBIN A1C 6.5 H 4.0-5.6 May 31, 2021 07:19 AM [facility] URINALYSIS Specimen Type: URINE Comment: A posi tive ascorbic acid indicates possible interferences with blood, glucose, nitrite and bilirubin. Ordering Provid er: TOBIAS MONROY Report Released Date/Time: Mar 30, 2021 09:20 AM Reporting Lab: [facility] [address] [facility] [address] Performing Lab: [address] [address] UA COLOR Yellow Yellow UA APPEARANCE Clear Clear UA GLUCOSE Negative Negative UA KETONES Negative Neg UA BLOOD Negative Neg UA PROTEIN 100 Neg UA NITRITE Negative Neg UA BILIRUBIN Negative Neg UA SPECIFIC GRAVITY 1.017 1.016-1.02 2 UA pH 5.0 5.0-9.0 UA UROBILINOGEN <2.0 <2.0 UA LEUKOCYTE ESTERASE Negative Neg May 31, 2021 07:19 [facility] MICROSCOPIC AUTOMATED, Speci men Type: URINE AM URINE Comment: A posi tive ascorbic acid indicates possible interferences with blood, glucose, nitrite and bilirubin. Ordering Provid er: TOBIAS MONROY Report Released Date/Time: Mar 30, 2021 09:20 AM Reporting Lab: [address] [address] Performing Lab: [address] [address] UA WBC 0-5 0-5 UA MUCUS FEW Trace UA RBC 0-2 0-3 UA SQUAMOUS EPITH FEW May 31, 2021 07:19 AM [facility] CBC AND DIFF (AUTO) Speci men Type: BLOOD No comment enter ed. Ordering Provid er: TOBIAS MONROY Report Released Date/Time: Mar 30, 2021 09:20 AM Reporting Lab: [address] [address] Performing Lab: [address] [address] WBC 10.39 4.50-11.00 RBC 3.73 L 4.23-5.66 HGB 11.7 L 12.8-17 HCT 35.6 L 39.2-50.4 MCV 95.4 82-99 MCHC 32.9 30.8-35.1 PLT 397 H 140-360 RDW-CV 14.1 12.0-16.0 [place], Abs 0.99 0.30-1.10 MCH 31.4 26.2-32.6 Neut % 55.8 Lymph % 26.9 [place] % 9.5 Eos % 6.4 Baso % 0.7 Neut, Abs 5.80 2.20-7.60 Lymph, Abs 2.80 1.00-3.20 Eos, Abs 0.66 H 0.03-0.44 Baso, Abs 0.07 0.01-0.13 Immature Gran % 0.7 Immature Gran, Abs 0.07 H 0.00-0.06 May 31, 2021 07:19 AM [facility] ETG SCREEN (wx) Specimen Type: URINE Comment: MARY te st are qualitative, any L or H flags only indicate a VA alert was sent. This ETG test was developed and its performance characteristics determined by [facility] clinical lab. The [place] Food and Helder g Administration has not approved or cleared this test, FDA clearance or approval is not currently required for clinical use. ETG cutoff 500 ng/mL Ordering Provid er: TOBIAS MONROY Report Released Date/Time: Apr 04, 2021 09:34 AM Reporting Lab: [address] [address] Performing Lab: [facility] [address] [facility] [address] ETG SCREEN (wx) Negative L Negative May 31, 2021 07:19 AM [facility] METHADONE SCREEN Specimen Type: URINE Comment: MARY te st are qualitative, any L or H flags only indicate a VA alert was sent. Ordering Provid er: TOBIAS MONROY Report Released Date/Time: Apr 04, 2021 09:34 AM Reporting Lab: [address] [address] Performing Lab: [facility] [address] [facility] [address] METHADONE SCREEN None detected(Negative) L Negative May 31, 2021 07:19 AM [facility] ALCOHOL, ETHYL URINE Spec imen Type: URINE [...] Apr 04, 2021 09:34 AM Reporting Lab: [address] [place] [address] Performing Lab: [address] [address] ALCOHOL, ETHYL URINE NONE-DETECTED NONE- DETECTED, cutoff = 10 mg/dL PH, MARY 5.9 4-10 CREATININE, MARY 88.10 >20 SP.GRAVITY, MARY 1.017 1.003-1.020 May 31, 2021 07:19 [facility] AMPHETAMINES SCREEN PANEL Sp ecimen Type: URINE [...] Apr 04, 2021 09:34 AM Reporting Lab: [address] [address] Performing Lab: [address] [address] AMPHETAMINES SCREEN NONE-DETECTED None-D etected, Cutoff = 1000 ng/mL PH, MARY 5.9 4-10 CREATININE, MARY 88.10 >20 SP.GRAVITY, MARY 1.017 1.003-1.020 May 31, 2021 07:19 AM [facility] FENTANYL SCREEN PANEL Spe cimen Type: URINE [...] Apr 04, 2021 09:34 AM Reporting Lab: [address] [address] Performing Lab: [facility] [address] [facility] [address] FENTANYL SCREEN NONE-DETECTED Negative: Cutoff = 1.00 ng/mL PH, MARY 5.9 4-10 CREATININE, MARY 85.35 >20 SP.GRAVITY, MARY 1.017 1.003-1.020 May 31, 2021 07:19 [facility] BUPRENORPHINE SCREEN PANEL S pecimen Type: URINE [...] Apr 04, 2021 09:34 AM Reporting Lab: [address] [address] Performing Lab: [address] [address] BUPRENORPHINE (URINE) NONE-DETECTED None Detected, Cutoff = 10.0 ng/mL PH, MARY 5.9 4-10 CREATININE, MARY 88.10 >20 SP.GRAVITY, MARY 1.017 1.003-1.020 May 31, 2021 07:19 AM [facility] COCAINE SCREEN PANEL Spec imen Type: URINE [...] Apr 04, 2021 09:34 AM Reporting Lab: [address] [address] Performing Lab: [address] [place] [address] COCAINE SCREEN NONE-DETECTED None-Detect ed,Cutoff = 300 ng/mL PH, MARY 5.9 4-10 CREATININE, MARY 88.10 >20 SP.GRAVITY, MARY 1.017 1.003-1.020 May 31, 2021 07:19 [facility] CANNABINOIDS SCREEN PANEL Sp ecimen Type: URINE [...] Apr 04, 2021 09:34 AM Reporting Lab: [address] [address] Performing Lab: [address] [address] CANNABINOIDS SCREEN NONE-DETECTED None-D etected,Cutoff = 50 ng/mL PH, MARY 5.9 4-10 CREATININE, MARY 88.10 >20 SP.GRAVITY, MARY 1.017 1.003-1.020 May 31, 2021 07:19 AM [facility] OPIATES SCREEN PANEL Spec imen Type: URINE [...] Apr 04, 2021 09:34 AM Reporting Lab: [address] [address] Performing Lab: [address] [address] OPIATES SCREEN NONE-DETECTED None-Detect ed, Cutoff = 300 ng/mL PH, MARY 5.9 4-10 CREATININE, MARY 88.10 >20 SP.GRAVITY, MARY 1.017 1.003-1.020 May 31, 2021 07:19 [facility] BENZODIAZEPINES SCREEN PANEL Specimen Type: URINE AM [...] Apr 04, 2021 09:34 AM Reporting Lab: [address] [address] Performing Lab: [address] [address] BENZODIAZEPINES SCREEN NONE-DETECTED Non e-Detected, Cutoff = 200 ng/mL PH, MARY 5.9 4-10 CREATININE, MARY 88.10 >20 SP.GRAVITY, MARY 1.017 1.003-1.020 May 31, 2021 07:19 AM [facility] OXYCODONE SCREEN PANEL Sp ecimen Type: URINE [...] Apr 04, 2021 09:34 AM Reporting Lab: [address] [address] Performing Lab: [address] [address] OXYCODONE SCREEN NONE-DETECTED None-Dete cted, Cutoff = 100 ng/mL PH, MARY 5.9 4-10 CREATININE, MARY 88.10 >20 SP.GRAVITY, MARY 1.017 1.003-1.020 Immunizations: All administered on the encounter date This section contains immunizations associated to the Encounter. Immunization Series Date Issued Reaction Comments COVID-19 (MODERNA), MRNA, 3 May 20, 2021 MO D; [id number]; 09/17/2021 LNP-S, PF, 100 MCG OR 50 MCG DOSE Social History: Smoking Status (Most current) and Tobacco Use (All prior to encounter date) This section includes the most current, and the historical, smoking and tobacco-related health factors from the [facility] facility where the Encounter took place.Current Smoking Status This section includes the most current smoking, or tobacco-related health factor, from the [facility] facility where the Encounter took place. Date/Time Current Smoking Status Comment Facility Jul 16, 2018 10:34 AM VA-TOBACCO QUIT 15 YRS OR MORE [facility] Tobacco Use History This section includes a history of the smoking, or tobacco- related health factors, that were collected on or before the date of the Encounter. The data comes from the [facility] facility where the Encounter took place. Date/Time Smoking Status/Tobacco Use Comment [facility] Jul 16, 2018 10:34 AM VA-TOBACCO QUIT 15 YRS OR JAKE MORE Aug 16, 2017 09:44 AM QUIT TOBACCO USE > 7 YEARS [facility] A[facility] vet quit 30 years ago Sep 13, 2016 02:56 PM QUIT TOBACCO USE > 7 YEARS [facility] AGO quit 30 years ago Jul 25, 2015 12:44 PM QUIT TOBACCO USE > 7 YEARS [facility] A[facility] Feb 05, 2005 01:52 PM HISTORY OF SMOKING SHERRELL CHAUDHARY Patient states he quit smoking 1 8 years ago. Sep 27, 2003 08:09 AM HISTORY OF SMOKING SHERRELL CHAUDHARY stopped tobacco 20 years ago May 25, 2002 08:00 AM HISTORY OF SMOKING SHERRELL IELD Stopped tobacco 16 years ago Sep 26, 2001 11:28 AM QUIT TOBACCO USE > 7 YEARS [facility] A[facility] Jan 24, 2001 09:14 AM HISTORY OF SMOKING SHERRELL IELD quit 16 years Advance Directives: All historical and current Section Date Range: From patient's date of to the date document was created. This section includes ALL of a patient's completed or amended VA Advance and Rescinded Directives. The entries below indicate that a directive exists for the patient, but an actual copy is not included with this document. The data comes from all [place] facilities. Date Advance Directives Provider Source May 20, 2006 ADVANCE DIRECTIVE BAYLEE SHUKLA [facility] Encounter Notes: All associated encounter notes This section contains the clinical notes associated to the Encounter. Date/Time Encounter Note(s) Provider Source May 20, 2021 09:52 AM PREVENTIVE MEDICINE NURSING NOTE: ANA OSBORN [facility] LOCAL TITLE: CLINICAL REMINDERS/NURSING STANDARD TITLE: PREVENTIVE MEDICINE NURSING NOTE DATE OF NOTE: MAY 20, 2021@09:52 ENTRY DATE: MAY 20, 2021@09:52:17 AUTHOR: MAURO OSBORN EXP COSIGNER: URGENCY: STATUS: COMPLETED COVID-19 Immunization: The patient was given the EUA fact sheet for th is vaccine which lists the benefits and side effects of the vaccine and [facility] reviews the risks of the vaccine. The fact sheet was reviewed with the p atient and they were given an opportunity to ask questions. The patient de nied any prior severe reaction to this vaccine or its components or a severe allergic reaction such as anaphylaxis to any vaccine or to any in jectable therapy. The patient gave verbal consent to receive the vacc ine. The patient received Moderna COVID-19 Vaccine 0 .25 ml IM. Series: Series 3 MVX (Manuf); Lot#; Exp Date: MOD; [id number]; 08/30 Administration Anatomic site: Right Deltoid Vaccine administered without complications. The patient was advised to remain in the facility for 15 minutes post vacc ination. The patient was given a completed COVID-19 vaccination record c ambar, a copy of the [place] Side Effects and Adverse Events Reporting Fact Sheet and instructed on how to report any adverse reactions. /selam/ Mauro Osborn RN [facility] [employer] farmer Signed: 05/20/2021 09:53
--- OUTSIDE RECORDS SUMMARY | 2022-04-21 09:14 | XMS_ITS | Encounter Summary ---
:1935 Author Organization [facility] rs Address [address] [place] [id number] Support Name Relationship Address Phone BRIAN CHARLES Unavailable [address] [place] [address] BRIAN CHARLES Unavailable [address] [place] [address] BRIAN CHARLES Unavailable [address] [phone] [place] [address] Insurance Providers: All historical and current Section [...] Number Stinson ANTHEM MEDIGAP MEDEX Dec 29, [id number] [phone] Anamika WALSH PATIENT BCBS OF CT PLAN C 2001 3 SPEEDY ANTHEM MEDICARE MEDEX Dec 29, [id number] [phone] Anamika WALSH PATIENT BCBS OF CT SUPPLEMEN BRON 2001 3 SPEEDY [place] E BCBS [place] MEDIC[place] MED[place] Dec 29, [id number] [phone] Anamika GONZALES PATIENT SUPPLEMEN BRONZ [id number] SPE[place] Dec 29, [id number] [phone] Anamika GONZALES PATIENT SUPPLEMEN BRONZ 2001 4 SPEEDY HERMINIA E BCBS OF MEDICARE PSUED May 31, [id number] [phone] Anamika GONZALES PATIENT [place] SUPPLEMEN O [id number] 3 SPEEDY HERMINIA MEDEX BRONZ E BLUE CROSS MEDIGAP MEDEX May 31, [id number] WHEE LER,R PATIENT BLUE PLAN [place] EAST 1999 05 [id number] OBERT SHIELD OF E [place] MEDICARE MEDICARE PART October 29, PART B [id number] [phone] WHEELE R,R PATIENT (WNR) (M) B 2001 RC08 2 OBERT MEDICARE MEDICARE PART October 29, PART B [id number] [phone] WHEELE R,R PATIENT (WNR) (M) B 2001 85A 00 SPEEDYERT MEDICARE MEDICARE PART October 29, PART B [id number] [phone] WHEELE R,R PATIENT (WNR) (M) B 2001 RC08 00 SPEEDYERT MEDICARE MEDICARE PART October 29, PART B [id number] [phone] WHEELE R,R PATIENT (WNR) (M) B 2001 85A 00 OBERT MEDICARE MEDICARE PART October 29, PART B [id number] [phone] WHEELE R,R PATIENT (WNR) (M) B 2001 RC08 00 OBERT MEDICARE MEDICARE PART May 31, PART A [id number] [phone] WHEELE R,R PATIENT (WNR) (M) A 1999 RC08 2 SPEEDY MEDICARE MEDICARE PART May 31, PART A [id number] [phone] WHEELE R,R PATIENT (WNR) (M) A 1999 85A 00 SPEEDYERT MEDICARE MEDICARE PART May 31, PART A [id number] [phone] WHEELE R,R PATIENT (WNR) (M) A 1999 RC08 00 SPEEDY MEDICARE MEDICARE PART May 31, PART A [id number] [phone] WHEELE R,R PATIENT (WNR) (M) A 1999 85A 00 SPEEDY MEDICARE MEDICARE PART May 31, PART A [id number] [phone] WHEELE R,R PATIENT (WNR) (M) A 1999 RC08 SPEEDY Selected Encounter This section includes the information on record at MI for the Encounter. Date/Time Encounter Type Encounter Description Reason Provider Source Jun 07, 2021 09:30 Outpatient Encounter PRIMARY CARE/MEDICINE AM IHE Encounter Template Text not used by MI Plan of Treatment: Future Appointments (+ 6 months) and Future Tests (+/- 45 days) The Plan of Treatment section includes future care activities for the patient [facility] This section includes future appointments and future orders which are active, pending orscheduled.Future Appointments This section includes appointments that were scheduled to occur 6 months from the date of the Encounter, up to a maximum of 20 appointments. The data comes from all MI treatment facilities. Appointment Date/Time Appointment Type Appointment Facili ty Name Oct 26, 2021 01:30 PM AMBULATORY - MEDICINE [facility] October 31, 2021 01:30 PM AMBULATORY MEDICINE [facility] November 24, 2021 09:00 AM AMBULATORY MEDICINE [facility] Lab Results: +/- 30 days of the encounter This section includes the Chemistry and Hematology Lab Results on record with MI for the patient. Radiology Reports and Pathology Reports are provided separately, in subsequent sections.Lab Results This section contains the Chemistry/Hematology Results that were resulted 30 days before or 30 daysafter the date of the Encounter. Date/Time Source Result Type Result - Unit Interpretation Reference Range Comment May 31, 2021 07:19 AM [facility] LIPID PANEL FASTING Speci men Type: SERUM No comment enter ed. Ordering Provid er: TOBIAS MONROY Report Released Date/Time: Mar 30, 2021 09:20 AM Reporting Lab: [address] [address] Performing Lab: [address] [address] CHOLESTEROL 144 0-199 TRIGLYCERIDE 93 0-150 LDL calculated 89 0-129 CHOL/HDL 4.0 HDL CHOLESTEROL 36 L 40-60 May 31, 2021 07:19 AM [facility] BASIC METABOLIC PANEL Spe cimen Type: SERUM (fasting) No comment enter ed. Ordering Provid er: TOBIAS MONROY Report Released Date/Time: Mar 30, 2021 09:20 AM Reporting Lab: [address] [address] Performing Lab: [address] [address] UREA NITROGEN 33 H 7-25 GLUCOSE 160 H 65-100 SODIUM 137 135-145 POTASSIUM 5.1 H 3.5-5.0 CHLORIDE 105 100-110 CO2 21 20-30 CREATININE, Serum 1.46 H 0.50-1.40 eGFR (IDMS) 46 L >60 May 31, 2021 07:19 AM [facility] LIVER FUNCTION Specimen Type: SERUM No comment enter ed. Ordering Provid er: TOBIAS MONROY Report Released Date/Time: Mar 30, 2021 09:20 AM Reporting Lab: [facility] [address] [address] Performing Lab: [facility] [address] [address] PROTEIN,TOTAL 6.4 6.0-8.3 ALBUMIN 3.4 L 3.5-5.0 ALKALINE PHOSPHATASE 78 40-150 AST 13 5-34 ALT 15 0-55 BILIRUBIN, TOTAL 0.4 0.2-1.2 May 31, 2021 07:19 AM [facility] HEMOGLOBIN A1C PANEL Spec imen Type: BLOOD [...] Mar 30, 2021 09:20 AM Reporting Lab: [facility] [address] [address] Performing Lab: [facility] [address] [address] HEMOGLOBIN A1C 6.5 H 4.0-5.6 May 31, 2021 07:19 AM [facility] TSH Specimen Type: SERUM No comment enter ed. Ordering Provid er: TOBIAS MONROY Report Released Date/Time: Mar 30, 2021 09:20 AM Reporting Lab: [facility] [address] [address] Performing Lab: [facility] [address] [address] TSH 1.76 0.35-5.00 May 31, 2021 07:19 AM [facility] VITAMIN B12 Specimen Type: SERUM No comment enter ed. Ordering Provid er: TOBIAS MONROY Report Released Date/Time: Mar 30, 2021 09:20 AM Reporting Lab: [facility] [address] [address] Performing Lab: [facility] [address] [address] VITAMIN B12 256 200-900 May 31, 2021 07:19 [facility] MICROALBUMIN CREATININE Spec imen Type: URINE AM RATIO PANEL No comment enter ed. Ordering Provid er: TOBIAS MONROY Report Released Date/Time: Mar 30, 2021 09:20 AM Reporting Lab: [facility] [address] [address] Performing Lab: [facility] [address] [address] MICROALBUMIN/CREATININE RATIO 780.6 H 0-29.9 MICROALBUMIN,QUANTITATIVE 68.3 RR U NAVAIL CREATININE URINE 87.50 May 31, 2021 07:19 AM [facility] CBC AND DIFF (AUTO) Speci men Type: BLOOD No comment enter ed. Ordering Provid er: TOBIAS MONROY Report Released Date/Time: Mar 30, 2021 09:20 AM Reporting Lab: [facility] [address] [address] Performing Lab: [facility] [address] [address] WBC 10.39 4.50-11.00 RBC 3.73 L 4.23-5.66 HGB 11.7 L 12.8-17 HCT 35.6 L 39.2-50.4 MCV 95.4 82-99 MCHC 32.9 30.8-35.1 PLT 397 H 140-360 RDW-CV 14.1 12.0-16.0 [place], Abs 0.99 0.30-1.10 MCH 31.4 26.2-32.6 Neut % 55.8 Lymph % 26.9 [place] % 9.5 Eos % 6.4 Baso % 0.7 Neut, Abs 5.80 2.20-7.60 Lymph, Abs 2.80 1.00-3.20 Eos, Abs 0.66 H 0.03-0.44 Baso, Abs 0.07 0.01-0.13 Immature Gran % 0.7 Immature Gran, Abs 0.07 H 0.00-0.06 May 31, 2021 07:19 AM [facility] URINALYSIS Specimen Type: URINE Comment: A posi tive ascorbic acid indicates possible interferences with blood, glucose, nitrite and bilirubin. Ordering Provid er: TOBIAS MONROY Report Released Date/Time: Mar 30, 2021 09:20 AM Reporting Lab: [address] [address] Performing Lab: [address] [address] UA COLOR Yellow Yellow UA APPEARANCE Clear Clear UA GLUCOSE Negative Negative UA KETONES Negative Neg UA BLOOD Negative Neg UA PROTEIN 100 Neg UA NITRITE Negative Neg UA BILIRUBIN Negative Neg UA SPECIFIC GRAVITY 1.017 1.016-1.02 2 UA pH 5.0 5.0-9.0 UA UROBILINOGEN <2.0 <2.0 UA LEUKOCYTE ESTERASE Negative Neg May 31, 2021 07:19 [facility] MICROSCOPIC AUTOMATED, Speci men Type: URINE AM URINE Comment: A posi tive ascorbic acid indicates possible interferences with blood, glucose, nitrite and bilirubin. Ordering Provid er: TOBIAS MONROY Report Released Date/Time: Mar 30, 2021 09:20 AM Reporting Lab: [address] [address] Performing Lab: [address] [address] UA WBC 0-5 0-5 UA MUCUS FEW Trace UA RBC 0-2 0-3 UA SQUAMOUS EPITH FEW May 31, 2021 07:19 AM [facility] ETG SCREEN (wx) Specimen Type: URINE Comment: MARY te st are qualitative, any L or H flags only indicate a [facility] alert was sent. This ETG test was developed and its performance characteristics determined by MI clinical lab. The [place] Food and Helder g Administration has not approved or cleared this test, FDA clearance or approval is not currently required for clinical use. ETG cutoff 500 ng/mL Ordering Provid er: TOBIAS MONROY Report Released Date/Time: Apr 04, 2021 09:34 AM Reporting Lab: [address] [address] Performing Lab: [facility] [address] [facility] [address] ETG SCREEN (wx) Negative L Negative May 31, 2021 07:19 AM [facility] METHADONE SCREEN Specimen Type: URINE Comment: MARY te st are qualitative, any L or H flags only indicate a MI alert was sent. Ordering Provid er: TOBIAS MONROY Report Released Date/Time: Apr 04, 2021 09:34 AM Reporting Lab: [address] [address] Performing Lab: [facility] [address] [facility] [address] METHADONE SCREEN None detected(Negative) L Negative May 31, 2021 07:19 AM [facility] ALCOHOL, ETHYL URINE Spec imen Type: URINE [...] Apr 04, 2021 09:34 AM Reporting Lab: [address] [address] Performing Lab: [address] [address] ALCOHOL, ETHYL URINE NONE-DETECTED NONE- DETECTED, cutoff = 10 mg/dL PH, MARY 5.9 4-10 CREATININE, MARY 88.10 >20 SP.GRAVITY, MARY 1.017 1.003-1.020 May 31, 2021 07:19 [facility] AMPHETAMINES SCREEN PANEL Sp ecimen Type: URINE [...] Apr 04, 2021 09:34 AM Reporting Lab: [facility] [address] [address] Performing [facility]: [facility] [address] [address] AMPHETAMINES SCREEN NONE-DETECTED None-D etected, Cutoff = 1000 ng/mL PH, MARY 5.9 4-10 CREATININE, MARY 88.10 >20 SP.GRAVITY, AMRY 1.017 1.003-1.020 May 31, 2021 07:19 AM [facility] FENTANYL SCREEN PANEL Spe cimen Type: URINE [...] Apr 04, 2021 09:34 AM Reporting Lab: [facility] [address] [address] Performing Lab: [facility] [address] FENTANYL SCREEN NONE-DETECTED Negative: Cutoff = 1.00 ng/mL PH, MARY 5.9 4-10 CREATININE, MARY 85.35 >20 SP.GRAVITY, MARY 1.017 1.003-1.020 May 31, 2021 07:19 [facility] BENZODIAZEPINES SCREEN PANEL Specimen Type: URINE AM [...] Apr 04, 2021 09:34 AM Reporting Lab: [facility] [address] [address] Performing Lab: [facility] [address] BENZODIAZEPINES SCREEN NONE-DETECTED Non e-Detected, Cutoff = 200 ng/mL PH, MARY 5.9 4-10 CREATININE, MARY 88.10 >20 SP.GRAVITY, MARY 1.017 1.003-1.020 May 31, 2021 07:19 [facility] CANNABINOIDS SCREEN PANEL Sp ecimen Type: URINE [...] Apr 04, 2021 09:34 AM Reporting Lab: [facility]USEH[facility] [address] [address] Performing Lab: [facility] [address] [address] CANNABINOIDS SCREEN NONE-DETECTED None-D etected,Cutoff = 50 ng/mL PH, MARY 5.9 4-10 CREATININE, MARY 88.10 >20 SP.GRAVITY, MARY 1.017 1.003-1.020 May 31, 2021 07:19 [facility] BUPRENORPHINE SCREEN PANEL S pecimen Type: URINE [...] Apr 04, 2021 09:34 AM Reporting Lab: [facility] [address] [address] Performing Lab: [address] [address] BUPRENORPHINE (URINE) NONE-DETECTED None Detected, Cutoff = 10.0 ng/mL PH, MARY 5.9 4-10 CREATININE, MARY 88.10 >20 SP.GRAVITY, MARY 1.017 1.003-1.020 May 31, 2021 07:19 AM [facility] COCAINE SCREEN PANEL Spec imen Type: URINE [...] Apr 04, 2021 09:34 AM Reporting Lab: [facility] [address] [address] Performing Lab: [facility] [address] [address] COCAINE SCREEN NONE-DETECTED None-Detect ed,Cutoff = 300 ng/mL PH, MARY 5.9 4-10 CREATININE, MARY 88.10 >20 SP.GRAVITY, MARY 1.017 1.003-1.020 May 31, 2021 07:19 AM [facility] OPIATES SCREEN PANEL Spec imen Type: URINE [...] Apr 04, 2021 09:34 AM Reporting Lab: [facility] [place] [facility] [address] [address] Performing Lab: [facility] [place] [facility] [address] [address] OPIATES SCREEN NONE-DETECTED None-Detect ed, Cutoff = 300 ng/mL PH, MARY 5.9 4-10 CREATININE, MARY 88.10 >20 SP.GRAVITY, MARY 1.017 1.003-1.020 May 31, 2021 07:19 AM [facility] OXYCODONE SCREEN PANEL Sp ecimen Type: URINE [...] Apr 04, 2021 09:34 AM Reporting Lab: [facility] [place] [facility] [address] [address] Performing Lab: [facility] [place] [facility] [address] [address] OXYCODONE SCREEN NONE-DETECTED None-Dete cted, Cutoff = 100 ng/mL PH, MARY 5.9 4-10 CREATININE, MARY 88.10 >20 SP.GRAVITY, MARY 1.017 1.003-1.020 Social History: Smoking Status (Most current) and Tobacco Use (All prior to encounter date) This section includes the most current, and the historical, smoking and tobacco-related health factors from the MI facility where the Encounter took place.Current Smoking Status This section includes the most current smoking, or tobacco-related health factor, from the MI facility where the Encounter took place. Date/Time Current Smoking Status Comment Facility Jul 16, 2018 10:34 AM VA-TOBACCO QUIT 15 YRS OR MORE [facility] Tobacco Use History This section includes a history of the smoking, or tobacco- related health factors, that were collected on or before the date of the Encounter. The data comes from the MI facility where the Encounter took place. Date/Time Smoking Status/Tobacco Use Comment [facility] Jul 16, 2018 10:34 AM VA-TOBACCO QUIT 15 YRS OR JAKE MORE Aug 16, 2017 09:44 AM QUIT TOBACCO USE > 7 YEARS [facility] AGO vet quit 30 years ago Sep 13, 2016 02:56 PM QUIT TOBACCO USE > 7 YEARS [facility] AGO quit 30 years ago Jul 25, 2015 12:44 PM QUIT TOBACCO USE > 7 YEARS [facility] AGO Feb 05, 2005 01:52 PM HISTORY OF SMOKING SHERRELL CHAUDHARY Patient states he quit smoking 1 8 years ago. Sep 27, 2003 08:09 AM HISTORY OF SMOKING SHERRELL CHAUDHARY stopped tobacco 20 years ago May 25, 2002 08:00 AM HISTORY OF SMOKING SHERRELL CHAUDHARY Stopped tobacco 16 years ago Sep 26, 2001 11:28 AM QUIT TOBACCO USE > 7 YEARS [facility] AGO Jan 24, 2001 09:14 AM HISTORY OF SMOKING SHERRELL REISLD quit 16 years Advance Directives: All historical and current Section Date Range: From patient's date of to the date document was created. This section includes ALL of a patient's completed or amended MI Advance and Rescinded Directives. The entries below indicate that a directive exists for the patient, but an actual copy is not included with this document. The data comes from all MI facilities. Date Advance Directives Provider Source May 20, 2006 ADVANCE DIRECTIVE BAYLEE SHUKLA JAKE Encounter Notes: All associated encounter notes This section contains the clinical notes associated to the Encounter. Date/Time Encounter Note(s) Provider Source Oct 11, 2021 03:23 PM NURSING ADMINISTRATIVE NOTE: VLADISLAV BUSTAMANTE LOCAL TITLE: NON-VA PRESCRIPTION STANDARD TITLE: NURSING ADMINISTRATIVE NOTE DATE OF NOTE: OCT 11, 2021@15:23 ENTRY DATE: OCT 11, 2021@15:23:44 AUTHOR: MIRA BUSTAMANTE EXP COSIGNER: URGENCY: STATUS: COMPLETED NON VA Prescription Date: Sep Prescriber Name/Tel/Fax :Mart Champagne MD Medical Oncology T [phone] RX : Isosorbide Mononitrate ER 30mg Sig: I t daily # Units: 30 Refills: 11 Mail to patient Waiting? Not applicable [facility] RX? NO Requested office notes from prescriber - Yes >> Requested Records via Right Fax from : MART Barrios MD May called and requested last visit note- faxing to [phone] Active Outpatient Medications (including Supplie s): Issue Date Status Last Fill Active Outpatient Medications Refills Expiratio n 1) ACCU-CHEK GUIDE (GLUCOSE) TEST STRIP ACTIVE I ssu:05-11-21 Qty: 50 for 180 days Sig: USE 1 STRIP Refills: 1 Last:05-12-21 TO TEST BLOOD SUGARS ONCE DAILY Expr: 2 NEEDED [NEW VERSION OF TEST STRIP TO USE WITH GUIDE ME METER] 2) ALBUTEROL 100/IPRATRO 20MCG 120D PO INHL ACTI VE Issu:12-27-20 Qty: 1 for 30 days Sig: INHALE 1 PUFF Refills: 10 Last:07-03-21 BY MOUTH EVERY 6 HOURS NEEDED FOR Expr:12-28 BREATHING 3) ATORVASTATIN CALCIUM 80MG TAB Qty: 45 ACTIVE (S) Issu:10-09-21 for 90 days Sig: TAKE ONE-HALF TABLET Refills: 1 Last:12-25-21 BY MOUTH ONCE DAILY FOR CHOLESTEROL Expr: 4) DOXAZOSIN MESYLATE 2MG TAB Qty: 30 for ACTIVE Issu:10-09-21 30 days Sig: TAKE ONE TABLET BY MOUTH Refills: 3 Last:10-09-21 ONCE DAILY Expr:10-10-22 5) FUROSEMIDE 20MG TAB Qty: 90 for 90 days ACTIV E Issu:10-09-21 Sig: TAKE ONE TABLET BY MOUTH EVERY Refills: 1 Last:10-09-21 DAY TO REMOVE FLUID/CONTROL BLOOD Expr:10-10-22 PRESSURE 6) LORATADINE 10MG TAB Qty: 90 for 90 days ACTIV E Issu:04-05-21 Sig: TAKE ONE TABLET BY MOUTH ONCE Refills: 1 L ast:06-03-21 DAILY NEEDED FOR ALLERGY Expr:04-06-22 7) METFORMIN HCL 500MG TAB Qty: 180 for 90 ACTIV E Issu:04-05-21 days Sig: TAKE ONE TABLET BY MOUTH Refills: 2 L ast:08-14-21 TWICE DAILY FOR DIABETES Expr:04-06-22 8) METOPROLOL TARTRATE 25MG TAB Qty: 180 ACTIVE (S) Issu:10-09-21 for 90 days Sig: TAKE ONE TABLET BY Refills: 1 Last:12-25-21 MOUTH TWICE DAILY FOR BLOOD Expr:10-10-22 PRESSURE/HEART 9) MOMETASONE FUROATE 220MCG ORAL INHL 60 ACTIVE Issu:01-18-21 Qty: 1 for 30 days Sig: INHALE 2 Refills: 4 Las t:09-26-21 PUFFS BY MOUTH TWICE DAILY --RINSE Expr:01-19-2 2 MOUTH AFTER EACH USE 10) OMEPRAZOLE 20MG CAP,EC Qty: 90 for 90 ACTIVE Issu:12-05-20 days Sig: TAKE ONE CAPSULE BY MOUTH Refills: 0 Last:09-11-21 DAILY Expr:12-06-21 11) SIMVASTATIN 40MG TAB Qty: 45 for 90 HOLD Iss u:06-07-21 days Sig: TAKE ONE-HALF TABLET BY Refills: 1 MOUTH AT BEDTIME Expr:06-08-22 12) VALSARTAN 320MG TAB Qty: 90 for 90 days ACTI VE (S) Issu:10-09-21 Sig: TAKE ONE TABLET BY MOUTH ONCE Refills: 1 L ast:12-25-21 DAILY *THIS IS A HIGHER DOSE* Expr:10-10-22 13) ZAFIRLUKAST 20MG TAB Qty: 180 for 90 ACTIVE (S) Issu:10-09-21 days Sig: TAKE ONE TABLET BY MOUTH Refills: 1 L ast:12-18-21 TWICE DAILY Expr:10-10-22 Start Date Active Non-VA Medications Refills Expiration 1) Non-VA ASPIRIN 81MG EC TAB SiMG BY ACTIV E MOUTH 2) Non-VA MULTIVITAMIN/MINERALS CAP/TAB ACTIVE Si TABLET BY MOUTH 3) Non-VA OTHER CAP/TAB Sig: EITHER ACTIVE CELEBREX,NAPROSYN OR IBUPROFEN TWICE DAILY 4) Non-VA OTHER CAP/TAB Sig: NEXIUM 40MG ACTIVE DAILY 17 Total Medications Medication (Local) Status TRAMADOL HCL 50MG TAB Directions: TAKE ONE TABLET BY MOUTH EVERY 12 HOURS NEEDED Quantity: 60 for 30 days Provider: TOBIAS MONROY Expires: 10/05/21 Status: PSYLLIUM SF ORAL PWD PKT Directions: TAKE 2 PACKETS BY MOUTH ONCE DAILY (MIX WITH AT LEAST 8OZ. OF WATER OR OTHER FLUID) Quantity: 60 for 30 days Provider: TOBIAS MONROY Expires: 08/10/21 Status: DILTIAZEM (EQV-TIAZAC) 240MG 24HR CAP Directions: TAKE ONE CAPSULE BY MOUTH ONCE DAILY Quantity: 90 for 90 days Provider: TOBIAS MONROY Expires: 07/22/21 Status: /es/ MIRA BUSTAMANTE, RN-BC,BSN,MHA REGISTERED NURSE Signed: 10/11/2021 15:29 Receipt Acknowledged By: * AWAITING SIGNATURE * ELEUTERIO ORONA
--- OUTSIDE RECORDS SUMMARY | 2022-04-21 09:15 | XMS_ITS | Encounter Summary ---
:1935 Author Organization [facility] Address [address] [place] [id number] Support Name Relationship Address Phone BRIAN CHARLES Unavailable [address] [place] [address] BRIAN CHARLES Unavailable [address] [place] [address] BRIAN CHARLES Unavailable [address] [phone] [place] [address] Insurance Providers: All historical and current Section [...] Number [place] ANTHEM MEDIGAP MEDEX Dec 29, [id number] [phone] Anamika WALSH PATIENT BCBS OF CT PLAN C 2001 3 SPEEDY ANTHEM MEDICARE MEDEX Dec 29, [id number] [phone] Anamika WALSH PATIENT BCBS OF CT SUPPLEMEN BRON 2001 3 SPEEDY HER[place] E BCBS DC MEDICARE MEDEX Dec 29, [id number] [phone] Anamika GONZALES PATIENT SUPPLEMEN BRONZ [id number] SPE[place] E BCBS DC MEDICARE MEDEX Dec 29, [id number] [phone] Anamika GONZALES PATIENT SUPPLEMEN BRONZ 2001 4 SPEEDY [place] E BCBS OF MEDICARE PSUED May 31, [id number] [phone] Anamika GONZALES PATIENT [place] SUPPLEMEN O [id number] 3 SPEEDY HERMINIA MEDEX BRONZ E BLUE [place]OSS MEDIGAP MEDEX May 31, [id number] [phone] WHEE LER,R PATIENT BLUE [facility] [place] EAST 1999 [id number] OBERT SHIELD OF E [place] MEDICARE MEDICARE PART October 29, PART B [id number] [phone] WHEELE R,R PATIENT (WNR) (M) B 2001 RC08 2 OBERT MEDICARE MEDICARE PART October 29, PART B [id number] [phone] WHEELE R,R PATIENT (WNR) (M) B 2001 85A 00 SPEEDY MEDICARE MEDICARE PART October 29, PART B [id number] [phone] WHEELE R,R PATIENT (WNR) (M) B 2001 RC08 00 SPE[place] MEDICARE MEDICARE PART October 29, PART B [id number] [phone] WHEELE R,R PATIENT (WNR) (M) B 2001 85A 00 SPE[place] MEDICARE MEDICARE PART October 29, PART B [id number] [phone] WHEELE R,R PATIENT (WNR) (M) B 2001 RC08 00 [facility] MEDICARE MEDICARE PART May 31, PART A [id number] [phone] WHEELE R,R PATIENT (WNR) (M) A 1999 RC08 2 SPE[place] MEDICARE MEDICARE PART May 31, PART A [id number] [phone] WHEELE R,R PATIENT (WNR) (M) A 1999 85A 00 SPE[place] MEDICARE MEDICARE PART May 31, PART A [id number] [phone] WHEELE R,R PATIENT (WNR) (M) A 1999 RC08 00 SPE[place] MEDICARE MEDICARE PART May 31, PART A [id number] [phone] WHEELE R,R PATIENT (WNR) (M) A 1999 85A 00 [place] MEDICARE MEDICARE PART May 31, PART A [id number] [phone] WHEELE R,R PATIENT (WNR) (M) A 1999 RC08 SPEEDY Selected Encounter This section includes the information on record at [place] for the Encounter. Date/Time Encounter Type Encounter Description Reason Provider Source May 10, 2021 09:38 Outpatient Encounter TELEPHONE TRIAGE AM [facility] Encounter Template Text not used by [facility] Plan of Treatment: Future Appointments (+ 6 months) and Future Tests (+/- 45 days) The Plan of Treatment section includes future care activities for the patient from all [place] treatmentfamission hospitalities. This section includes future appointments and future orders which are active, pending orscheduled.Future Appointments This section includes appointments that were scheduled to occur 6 months from the date of the Encounter, up to a maximum of 20 appointments. The data comes from all [place] treatment facilities. Appointment Date/Time Appointment Type Appointment Facili ty Name May 20, 2021 09:15 AM AMBULATORY - MEDICINE [facility] Jun 07, 2021 01:30 PM AMBULATORY - MEDICINE [facility] Oct 26, 2021 01:30 PM AMBULATORY MEDICINE [facility] October 31, 2021 01:30 PM AMBULATORY MEDICINE [facility] Lab Results: +/- 30 days of [...] Range Comment May 31, 2021 07:19 AM [facility] LIPID PANEL FASTING Speci men Type: SERUM No comment enter ed. Ordering Provid er: SHREE MONROY Report Released Date/Time: Mar 30, 2021 09:20 AM Reporting Lab: [address] [address] Performing Lab: [address] [address] CHOLESTEROL 144 0-199 TRIGLYCERIDE 93 0-150 LDL calculated 89 0-129 CHOL/HDL 4.0 HDL CHOLESTEROL 36 L 40-60 May 31, 2021 07:19 AM [facility] HEMOGLOBIN A1C PANEL Spec imen Type: BLOOD [...] Mar 30, 2021 09:20 AM Reporting Lab: [facility] [address] [facility] [address] Performing Lab: [facility] [address] [facility] [address] HEMOGLOBIN A1C 6.5 H 4.0-5.6 May 31, 2021 07:19 AM [facility] BASIC METABOLIC PANEL Spe cimen Type: SERUM (fasting) No comment enter ed. Ordering Provid er: SHREE MONROY Report Released Date/Time: Mar 30, 2021 09:20 AM Reporting Lab: [facility] [address] [facility] [address] Performing Lab: [address] [address] UREA NITROGEN 33 H 7-25 GLUCOSE 160 H 65-100 SODIUM 137 135-145 POTASSIUM 5.1 H 3.5-5.0 CHLORIDE 105 100-110 CO2 21 20-30 CREATININE, Serum 1.46 H 0.50-1.40 eGFR (IDMS) 46 L >60 May 31, 2021 07:19 AM [facility] LIVER FUNCTION Specimen Type: SERUM No comment enter ed. Ordering Provid er: SHREE MONROY Report Released Date/Time: Mar 30, 2021 09:20 AM Reporting Lab: [facility] [address] [facility] [address] Performing Lab: [facility] [address] [facility] [address] PROTEIN,TOTAL 6.4 6.0-8.3 ALBUMIN 3.4 L 3.5-5.0 ALKALINE PHOSPHATASE 78 40-150 AST 13 5-34 ALT 15 0-55 BILIRUBIN, TOTAL 0.4 0.2-1.2 May 31, 2021 07:19 AM [facility] TSH Specimen Type: SERUM No comment enter ed. Ordering Provid er: SHREE MONROY Report Released Date/Time: Mar 30, 2021 09:20 AM Reporting Lab: [address] [address] [facility] [address] [facility] [address] TSH 1.76 0.35-5.00 May 31, 2021 07:19 AM [facility] VITAMIN B12 Specimen Type: SERUM No comment enter ed. Ordering Provid er: SHREE MONROY Report Released Date/Time: Mar 30, 2021 09:20 AM Reporting Lab: [facility] [address] [facility] [address] Performing Lab: [facility] [address] [facility] [address] VITAMIN B12 256 200-900 May 31, 2021 07:19 [facility] MICROALBUMIN CREATININE Spec imen Type: URINE AM RATIO PANEL No comment enter ed. Ordering Provid er: SHREE MONROY Report Released Date/Time: Mar 30, 2021 09:20 AM Reporting Lab: [facility] [address] [facility] [address] [facility]forming Lab: [facility] [address] [facility] [address] MICROALBUMIN/CREATININE RATIO 780.6 H 0-29.9 MICROALBUMIN,QUANTITATIVE 68.3 RR U NAVAIL CREATININE URINE 87.50 May 31, 2021 07:19 AM [facility] URINALYSIS Specimen Type: URINE Comment: A posi tive ascorbic acid indicates possible interferences with blood, glucose, nitrite and bilirubin. Ordering Provid er: SHREE MONROY Report Released Date/Time: Mar 30, 2021 09:20 AM Reporting [facility] [address] [facility] [address] Performing Lab: [facility] [address] [facility] [address] UA COLOR Yellow Yellow UA APPEARANCE Clear Clear UA GLUCOSE Negative Negative UA KETONES Negative Neg UA BLOOD Negative Neg UA PROTEIN 100 Neg UA NITRITE Negative Neg UA BILIRUBIN Negative Neg UA SPECIFIC GRAVITY 1.017 1.016-1.02 2 UA pH 5.0 5.0-9.0 UA UROBILINOGEN <2.0 <2.0 UA LEUKOCYTE ESTERASE Negative Neg May 31, 2021 07:19 AM [facility] CBC AND DIFF (AUTO) Speci men Type: BLOOD No comment enter ed. Ordering Provid er: SHREE MONROY Report Released Date/Time: Mar 30, 2021 09:20 AM Reporting Lab: [facility] [address] [facility] [address] Performing Lab: [facility] [address] [facility] [address] WBC 10.39 4.50-11.00 RBC 3.73 L 4.23-5.66 HGB 11.7 L 12.8-17 HCT 35.6 L 39.2-50.4 MCV 95.4 82-99 MCHC 32.9 30.8-35.1 PLT 397 H 140-360 RDW-CV 14.1 12.0-16.0 [place], Abs 0.99 0.30-1.10 MCH 31.4 26.2-32.6 Neut % 55.8 Lymph % 26.9 [place] % 9.5 Eos % 6.4 Baso % 0.7 Neut, Abs 5.80 2.20-7.60 Lymph, Abs 2.80 1.00-3.20 Eos, Abs 0.66 H 0.03-0.44 Baso, Abs 0.07 0.01-0.13 Immature Gran % 0.7 Immature Gran, Abs 0.07 H 0.00-0.06 May 31, 2021 07:19 [facility] MICROSCOPIC AUTOMATED, Speci men Type: URINE AM URINE Comment: A posi tive ascorbic acid indicates possible interferences with blood, glucose, nitrite and bilirubin. Ordering Provid er: SHREE MONROY Report Released Date/Time: Mar 30, 2021 09:20 AM Reporting Lab: [address] [address] Performing Lab: [address] [address] UA WBC 0-5 0-5 UA MUCUS FEW Trace UA RBC 0-2 0-3 UA SQUAMOUS EPITH FEW May 31, 2021 07:19 AM [facility] ETG SCREEN (wx) Specimen Type: URINE Comment: [...] Apr 04, 2021 09:34 AM Reporting Lab: [address] [address] Performing Lab: [facility] [address] [facility] [address] ETG SCREEN (wx) Negative L Negative May 31, 2021 07:19 AM [facility] METHADONE SCREEN Specimen Type: URINE Comment: MARY te st are qualitative, any L or H flags only indicate a [facility] alert was sent. Ordering Provid er: SHREE MONROY Report Released Date/Time: Apr 04, 2021 09:34 AM Reporting Lab: [address] [address] Performing Lab: [facility] [address] [facility] [address] METHADONE SCREEN None detected(Negative) L Negative May 31, 2021 07:19 AM [facility] ALCOHOL, ETHYL URINE Spec imen Type: URINE [...] Apr 04, 2021 09:34 AM Reporting Lab: [address] [address] Performing Lab: [address] [address] ALCOHOL, ETHYL URINE NONE-DETECTED NONE- DETECTED, cutoff = 10 mg/dL PH, MARY 5.9 4-10 CREATININE, MARY 88.10 >20 SP.GRAVITY, MARY 1.017 1.003-1.020 May 31, 2021 07:19 [facility] AMPHETAMINES SCREEN PANEL Sp ecimen Type: URINE [...] Apr 04, 2021 09:34 AM Reporting Lab: [address] [address] Performing Lab: [address] [address] AMPHETAMINES SCREEN NONE-DETECTED None-D etected, Cutoff = 1000 ng/mL PH, MARY 5.9 4-10 CREATININE, MARY 88.10 >20 SP.GRAVITY, MARY 1.017 1.003-1.020 May 31, 2021 07:19 AM [facility] FENTANYL SCREEN PANEL Spe cimen Type: URINE [...] Apr 04, 2021 09:34 AM Reporting Lab: [address] [address] Performing Lab: [address] [address] FENTANYL SCREEN NONE-DETECTED Negative: Cutoff = 1.00 ng/mL PH, MARY 5.9 4-10 CREATININE, MARY 85.35 >20 SP.GRAVITY, MARY 1.017 1.003-1.020 May 31, 2021 07:19 [facility] BENZODIAZEPINES SCREEN PANEL Specimen Type: URINE AM [...] Apr 04, 2021 09:34 AM Reporting Lab: [address] [address] Performing Lab: [address] [address] BENZODIAZEPINES SCREEN NONE-DETECTED Non e-Detected, Cutoff = 200 ng/mL PH, MARY 5.9 4-10 CREATININE, MARY 88.10 >20 SP.GRAVITY, MARY 1.017 1.003-1.020 May 31, 2021 07:19 [facility] BUPRENORPHINE SCREEN PANEL S pecimen Type: URINE [...] Apr 04, 2021 09:34 AM Reporting Lab: [address] [address] Performing Lab: [address] [address] BUPRENORPHINE (URINE) NONE-DETECTED None Detected, Cutoff = 10.0 ng/mL PH, MARY 5.9 4-10 CREATININE, MARY 88.10 >20 SP.GRAVITY, MARY 1.017 1.003-1.020 May 31, 2021 07:19 [facility] CANNABINOIDS SCREEN PANEL Sp ecimen Type: URINE [...] Apr 04, 2021 09:34 AM Reporting Lab: [address] [address] Performing Lab: [address] [address] CANNABINOIDS SCREEN NONE-DETECTED None-D etected,Cutoff = 50 ng/mL PH, MARY 5.9 4-10 CREATININE, MARY 88.10 >20 SP.GRAVITY, MARY 1.017 1.003-1.020 May 31, 2021 07:19 AM [facility] COCAINE SCREEN PANEL Spec imen Type: URINE [...] Apr 04, 2021 09:34 AM Reporting Lab: [facility] [email or web address] [address] Performing Lab: [address] [address] COCAINE SCREEN NONE-DETECTED None-Detect ed,Cutoff = 300 ng/mL PH, MARY 5.9 4-10 CREATININE, MARY 88.10 >20 SP.GRAVITY, MARY 1.017 1.003-1.020 May 31, 2021 07:19 AM [facility] OPIATES SCREEN PANEL Spec imen Type: URINE [...] Apr 04, 2021 09:34 AM Reporting Lab: [address] [address] Performing Lab: [address] [address] OPIATES SCREEN NONE-DETECTED None-Detect ed, Cutoff = 300 ng/mL PH, MARY 5.9 4-10 CREATININE, MARY 88.10 >20 SP.GRAVITY, MARY 1.017 1.003-1.020 May 31, 2021 07:19 AM [facility] OXYCODONE SCREEN PANEL Sp ecimen Type: URINE [...] Apr 04, 2021 09:34 AM Reporting Lab: [facility] [address] [facility] [address] Performing Lab: [address] [address] OXYCODONE SCREEN NONE-DETECTED None-Dete cted, Cutoff = [...] 26, 2020 10:43 AM [place]-TOBACCO FORMER USER [facility] Tobacco Use History This section includes a history of the smoking, or tobacco- related health factors, that were collected on or before the date of the Encounter. The data comes from the [place] facility where the Encounter took place. Date/Time Smoking Status/Tobacco Use Comment [facility] it Jul 26, 2020 10:43 AM [place]-[facility]AC[facility] [address] [facility] Advance Directives: All historical and [...] Encounter. Date/Time Encounter Note(s) Provider Source May 10, 2021 09:38 AM TELEPHONE ENCOUNTER NOTE: CHUCK VIGIL [facility] LOCAL TITLE: VISN 1 [facility] ACTION REQUIRED [facility] STANDARD TITLE: TELEPHONE ENCOUNTER NOTE DATE OF NOTE: MAY 10, 2021@09:38:49 ENTRY DATE: MAY 10, 2021@09:40:06 AUTHOR: CHUCK VIGIL EXP COSIGNER: URGENCY: STATUS: COMPLETED VISN 1 [facility] ACTION REQUIRED Has ADDENDA The patient, MART WALSH ([id number] ) called the call center. The following identifiers were used to verify th is patient: . SSN. Contact Type of call: ADMINISTRATIVE. Caller Response: ADM CALL RESOLVED Caller Area: [facility] CB PCMM Provider Info: LOCAL - [facility] ([id number]) PACT: SO PACT 2 (Focus: Primary Care Only) Primary Care Provider: Shree Monroy PHONE:[phone] Head Of Science: Cindy Phillips Clinical Associate: Vita Calero Business Asst: Clinton Gomez Clinical POC: Clinical Associate Desmond Calero Administrative POC: Business Asst Clinton Gomez Author: CHUCK VIGIL Comments: called to follow up on his request to sp eak to RN. Kindly call back. Evaluation/Management Code: HC PRO PHONE CALL 5- 10 MIN ([id number]). Starting at: 05/10/2021 @ 9:38:49 AM Ending at: 05/10/2021 @ 9:39:33 AM Length: 0 minutes. Chief Complaint: Not applicable to call. Class Code: Other specified counseling. Patient's Email Address: /selam/ CHUCK VIGIL Advanced Document Advisor Signed: 05/10/2021 09:40 Receipt Acknowledged By: 05/10/2021 16:21 /selam/ TANYA WYATT-director of admissions Nurse for CINDY BUFFY * AWAITING SIGNATURE * VITA CALERO 05/10/2021 ADDENDUM STATUS: COMPLETED Spoke with vet via tele Discussed covid booster -vet states he will get at a local pharmacy. alvarez s not [facility] Discussed metamucil refill -done Discussed [facility] RX -advised of [facility] RX policy. ad vised to bring rx directly to pharmacy. Discussed Test Strips -See med renewal note. /selam/ TANYA WYATT-director of admissions Nurse Signed: 05/10/2021 16:24
--- OUTSIDE RECORDS SUMMARY | 2022-04-21 09:15 | XMS_ITS | Encounter Summary ---
:1935 Author Organization [facility] Address [address] [place] [id number] Support Name Relationship Address Phone BRIAN CHARLES Unavailable [address] [place] [address] BRIAN CHARLES Unavailable [address] [place] [address] BRIAN CHARLES Unavailable [address] [phone] [place] [address] Insurance Providers: All historical and current Section [...] Number [place] ANTHEM MEDIGAP MEDEX Dec 29, [id number] [phone] Anamika WALSH PATIENT BCBS OF CT PLAN C 2001 3 SPEEDY ANTHEM MEDICARE MEDEX Dec 29, [id number] [phone] Anamika WALSH PATIENT BCBS OF CT SUPPLEMEN BRON 2001 3 SPEED[place] E BCBS [place] MEDIC[place] MEDEX Dec 29, [id number] [phone] Anamika GONZALES PATIENT SUPPLEMEN BRONZ [id number] SPE[place] MED[place] Dec 29, [id number] [phone] Anamika GONZALES PATIENT SUPPLEMEN BRONZ 2001 4 SPEEDY [place] E BCBS OF MEDICARE PSUED May 31, [id number] [phone] Anamika GONZALES PATIENT [place] SUPPLEMEN O [id number] 3 SPEEDY [place] MEDEX BRONZ E BLUE CROSS MEDIGAP MEDEX May 31, [id number] [phone] WHEE LER,R PATIENT BLUE [facility] [place] EAST 1999 05 [id number] OBERT SHIELD OF E [place] MEDICARE MEDICARE PART October 29, PART B [id number] [phone] WHEELE R,R PATIENT (WNR) (M) B 2001 RC08 2 [place]ERT MEDICARE MEDICARE PART October 29, PART B [id number] [phone] WHEELE R,R PATIENT (WNR) (M) B 2001 85A 00 SPEEDY MEDICARE MEDICARE PART October 29, PART B [id number] [phone] WHEELE R,R PATIENT (WNR) (M) B 2001 RC08 00 [place] MEDICARE MEDICARE PART October 29, PART B [id number] [phone] WHEELE R,R PATIENT (WNR) (M) B 2001 85A 00 SPE[place] MEDICARE MEDICARE PART October 29, PART B [id number] [phone] WHEELE R,R PATIENT (WNR) (M) B 2001 RC08 00 [facility] MEDICARE MEDICARE PART May 31, PART A [id number] [phone] WHEELE R,R PATIENT (WNR) (M) A 1999 RC08 2 SPE[place] MEDICARE MEDICARE PART May 31, PART A [id number] [phone] WHEELE R,R PATIENT (WNR) (M) A 1999 85A 00 [place] MEDICARE MEDICARE PART May 31, PART A [id number] [phone] WHEELE R,R PATIENT (WNR) (M) A 1999 RC08 00 [place] MEDICARE MEDICARE PART May 31, PART A [id number] [phone] WHEELE R,R PATIENT (WNR) (M) A 1999 85A 00 [place] MEDICARE MEDICARE PART May 31, PART A [id number] [phone] WHEELE R,R PATIENT (WNR) (M) A 1999 RC08 SPEEDY Selected Encounter This section includes the information on record at [place] for the Encounter. Date/Time Encounter Type Encounter Description Reason Provider Source May 09, 2021 10:15 Outpatient Encounter TELEPHONE TRIAGE AM IHE Encounter Template Text not used by [facility] Plan of Treatment: Future Appointments (+ 6 months) and Future Tests (+/- 45 days) The Plan of Treatment section includes future care activities for the patient from all [place] [facility]. This section includes future appointments and future orders which are active, pending orscheduled.Future Appointments This section includes appointments that were scheduled to occur 6 months from the date of the Encounter, up to a maximum of 20 appointments. The data comes from all [place] treatment facilities. Appointment Date/Time Appointment Type Appointment Facili ty Name May 20, 2021 09:15 AM AMBULATORY - MEDICINE [facility] Jun 07, 2021 01:[address] Oct 26, 2021 01:30 PM AMBULATORY MEDICINE [facility] October 31, 2021 01:30 PM AMBULATORY MEDICINE [facility] Lab Results: +/- 30 days of the encounter This section includes the Chemistry and Hematology Lab Results on record with [place] for the patient. Radiology Reports and Pathology Reports are provided separately, in subsequent sections.Lab Results This section contains the Chemistry/Hematology Results that were resulted 30 days before or 30 daysafter the date of the Encounter. Date/Time Source Result Type Result - Unit Interpretation Reference Range Comment May 31, 2021 07:[address] HEMOGLOBIN A1C PANEL Spec imen Type: BLOOD [...] Mar 30, 2021 09:20 AM Reporting Lab: [facility] [address] [facility] [address] Performing Lab: [address] [address] HEMOGLOBIN A1C 6.5 H 4.0-5.6 May 31, 2021 07:[address] LIVER FUNCTION Specimen Type: SERUM No comment enter ed. Ordering Provid er: SHREE MONROY Report Released Date/Time: Mar 30, 2021 09:20 AM Reporting Lab: [facility] [address] [facility] [address] Performing Lab: [facility] [address] [facility] [address] PROTEIN,TOTAL 6.4 6.0-8.3 ALBUMIN 3.4 L 3.5-5.0 ALKALINE PHOSPHATASE 78 40-150 AST 13 5-34 ALT 15 0-55 BILIRUBIN, TOTAL 0.4 0.2-1.2 May 31, 2021 07:[address] LIPID PANEL FASTING Speci men Type: SERUM No comment enter ed. Ordering Provid er: SHREE MONROY Report Released Date/Time: Mar 30, 2021 09:20 AM Reporting Lab: [address] [address] Performing Lab: [address] [address] CHOLESTEROL 144 0-199 TRIGLYCERIDE 93 0-150 LDL calculated 89 0-129 CHOL/HDL 4.0 HDL CHOLESTEROL 36 L 40-60 May 31, 2021 07:[address] BASIC METABOLIC PANEL Spe cimen Type: SERUM (fasting) No comment enter ed. Ordering Provid er: SHREE MONROY Report Released Date/Time: Mar 30, 2021 09:20 AM Reporting Lab: [address] [address] Performing Lab: [facility] [address] [facility] [address] UREA NITROGEN 33 H 7-25 GLUCOSE 160 H 65-100 SODIUM 137 135-145 POTASSIUM 5.1 H 3.5-5.0 CHLORIDE 105 100-110 CO2 21 20-30 CREATININE, Serum 1.46 H 0.50-1.40 eGFR (IDMS) 46 L >60 May 31, 2021 07:[address] TSH Specimen Type: SERUM No comment enter ed. Ordering Provid er: SHREE MONROY Report Released Date/Time: Mar 30, 2021 09:20 AM Reporting Lab: [address] [address] Performing Lab: [facility] [address] [address] TSH 1.76 0.35-5.00 May 31, 2021 07:[address] VITAMIN B12 Specimen Type: SERUM No comment enter ed. Ordering Provid er: SHREE MONROY Report Released Date/Time: Mar 30, 2021 09:20 AM Reporting Lab: [facility] [address] [facility] [address] Performing Lab: [facility] [address] [facility] [address] VITAMIN B12 256 200-900 May 31, 2021 07:[address] MICROALBUMIN CREATININE Spec imen Type: URINE AM RATIO PANEL No comment enter ed. Ordering Provid er: SHREE MONROY Report Released Date/Time: Mar 30, 2021 09:20 AM Reporting Lab: [facility] [address] [facility] [address] Performing Lab: [facility] [address] [address] MICROALBUMIN/CREATININE RATIO 780.6 H 0-29.9 MICROALBUMIN,QUANTITATIVE 68.3 RR U NAVAIL CREATININE URINE 87.50 May 31, 2021 07:[address] URINALYSIS Specimen Type: URINE Comment: A posi tive ascorbic acid indicates possible interferences with blood, glucose, nitrite and bilirubin. Ordering Provid er: SHREE MONROY Report Released Date/Time: Mar 30, 2021 09:20 AM Reporting Lab: [facility] [address] [address] Performing Lab: [facility] [address] [facility] [address] UA COLOR Yellow Yellow UA APPEARANCE Clear Clear UA GLUCOSE Negative Negative UA KETONES Negative Neg UA BLOOD Negative Neg UA PROTEIN 100 Neg UA NITRITE Negative Neg UA BILIRUBIN Negative Neg UA SPECIFIC GRAVITY 1.017 1.016-1.02 2 UA pH 5.0 5.0-9.0 UA UROBILINOGEN <2.0 <2.0 UA LEUKOCYTE ESTERASE Negative Neg May 31, 2021 07:[address] CBC AND DIFF (AUTO) Speci men Type: BLOOD No comment enter ed. Ordering Provid er: SHREE MONROY Report Released Date/Time: Mar 30, 2021 09:20 AM Reporting Lab: [facility] [address] [facility] [address] Performing Lab: [facility] [address] [facility] [address] WBC 10.39 4.50-11.00 RBC 3.73 L 4.23-5.66 HGB 11.7 L 12.8-17 HCT 35.6 L 39.2-50.4 MCV 95.4 82-99 MCHC 32.9 30.8-35.1 PLT 397 H 140-360 RDW-CV 14.1 12.0-16.0 Weston, Abs 0.99 0.30-1.10 MCH 31.4 26.2-32.6 Neut % 55.8 Lymph % 26.9 Weston % 9.5 Eos % 6.4 Baso % 0.7 Neut, Abs 5.80 2.20-7.60 Lymph, Abs 2.80 1.00-3.20 Eos, Abs 0.66 H 0.03-0.44 Baso, Abs 0.07 0.01-0.13 Immature Gran % 0.7 Immature Gran, Abs 0.07 H 0.00-0.06 May 31, 2021 07:[address] MICROSCOPIC AUTOMATED, Speci men Type: URINE AM URINE Comment: A posi tive ascorbic acid indicates possible interferences with blood, glucose, nitrite and bilirubin. Ordering Provid er: SHREE MONROY Report Released Date/Time: Mar 30, 2021 09:20 AM Reporting Lab: [address] [address] Performing Lab: [address] [address] UA WBC 0-5 0-5 UA MUCUS FEW Trace UA RBC 0-2 0-3 UA SQUAMOUS EPITH FEW May 31, 2021 07:[address] ETG SCREEN (wx) Specimen Type: URINE Comment: MARY te st are qualitative, any L or H flags only indicate a [facility] alert was sent. This ETG test was developed and its performance characteristics determined by [place] clinical lab. The [place] Food and Helder g Administration has not approved or cleared this test, FDA clearance or approval is not currently required for clinical use. ETG cutoff 500 ng/mL Ordering Provid er: SHREE MONROY Report Released Date/Time: Apr 04, 2021 09:34 AM Reporting Lab: [address] [address] Performing Lab: [facility] [address] [facility] [address] ETG SCREEN (wx) Negative L Negative May 31, 2021 07:[address] METHADONE SCREEN Specimen Type: URINE Comment: MARY te st are qualitative, any L or H flags only indicate a [facility] alert was sent. Ordering Provid er: SHREE MONROY Report Released Date/Time: Apr 04, 2021 09:34 AM Reporting Lab: [address] [address] Performing Lab: [facility] [address] [facility] [address] METHADONE SCREEN None detected(Negative) L Negative May 31, 2021 07:[address] ALCOHOL, ETHYL URINE Spec imen Type: URINE [...] Apr 04, 2021 09:34 AM Reporting Lab: [address] [address] Performing Lab: [address] [address] ALCOHOL, ETHYL URINE NONE-DETECTED NONE- DETECTED, cutoff = 10 mg/dL PH, MARY 5.9 4-10 CREATININE, MARY 88.10 >20 SP.GRAVITY, MARY 1.017 1.003-1.020 May 31, 2021 07:[address] AMPHETAMINES SCREEN PANEL Sp ecimen Type: URINE [...] Apr 04, 2021 09:34 AM Reporting Lab: [address] [address] Performing Lab: [address] [address] AMPHETAMINES SCREEN NONE-DETECTED None-D etected, Cutoff = 1000 ng/mL PH, MARY 5.9 4-10 CREATININE, MARY 88.10 >20 SP.GRAVITY, MARY 1.017 1.003-1.020 May 31, 2021 07:[address] BENZODIAZEPINES SCREEN PANEL Specimen Type: URINE AM [...] Apr 04, 2021 09:34 AM Reporting Lab: [address] [address] Performing Lab: [address] [address] BENZODIAZEPINES SCREEN NONE-DETECTED Non e-Detected, Cutoff = 200 ng/mL PH, MARY 5.9 4-10 CREATININE, MARY 88.10 >20 SP.GRAVITY, MARY 1.017 1.003-1.020 May 31, 2021 07:[address] FENTANYL SCREEN PANEL Spe cimen Type: URINE [...] Apr 04, 2021 09:34 AM Reporting Lab: [address] [address] Performing Lab: [address] [address] FENTANYL SCREEN NONE-DETECTED Negative: Cutoff = 1.00 ng/mL PH, MARY 5.9 4-10 CREATININE, MARY 85.35 >20 SP.GRAVITY, MARY 1.017 1.003-1.020 May 31, 2021 07:[address] BUPRENORPHINE SCREEN PANEL S pecimen Type: URINE [...] Apr 04, 2021 09:34 AM Reporting Lab: [address] [address] Performing Lab: [address] [address] BUPRENORPHINE (URINE) NONE-DETECTED None Detected, Cutoff = 10.0 ng/mL PH, MARY 5.9 4-10 CREATININE, MARY 88.10 >20 SP.GRAVITY, MARY 1.017 1.003-1.020 May 31, 2021 07:[address] CANNABINOIDS SCREEN PANEL Sp ecimen Type: URINE [...] Apr 04, 2021 09:34 AM Reporting Lab: [address] [address] Performing Lab: [address] [address] CANNABINOIDS SCREEN NONE-DETECTED None-D etected,Cutoff = 50 ng/mL PH, MARY 5.9 4-10 CREATININE, MARY 88.10 >20 SP.GRAVITY, MARY 1.017 1.003-1.020 May 31, 2021 07:[address] COCAINE SCREEN PANEL Spec imen Type: URINE [...] Apr 04, 2021 09:34 AM Reporting Lab: [facility] [employer] [address] Performing Lab: [address] [address] COCAINE SCREEN NONE-DETECTED None-Detect ed,Cutoff = 300 ng/mL PH, MARY 5.9 4-10 CREATININE, MARY 88.10 >20 SP.GRAVITY, MARY 1.017 1.003-1.020 May 31, 2021 07:[address] OPIATES SCREEN PANEL Spec imen Type: URINE [...] Apr 04, 2021 09:34 AM Reporting Lab: [address] [address] Performing Lab: [address] [address] OPIATES SCREEN NONE-DETECTED None-Detect ed, Cutoff = 300 ng/mL PH, MARY 5.9 4-10 CREATININE, MARY 88.10 >20 SP.GRAVITY, MARY 1.017 1.003-1.020 May 31, 2021 07:[address] OXYCODONE SCREEN PANEL Sp ecimen Type: URINE [...] Apr 04, 2021 09:34 AM Reporting Lab: [facility] [address] [facility] [address] Performing Lab: [address] [address] OXYCODONE SCREEN NONE-DETECTED None-Dete cted, Cutoff = 100 ng/mL PH, MARY 5.9 4-10 CREATININE, MARY 88.10 >20 SP.GRAVITY, MARY 1.017 1.003-1.020 Social History: Smoking Status (Most current) and Tobacco Use (All prior to encounter date) This section includes the most current, and the historical, smoking and tobacco-related health factors from the [place] facility where the Encounter took place.Current Smoking Status This section includes the most current smoking, or tobacco-related health factor, from the [place] facility where the Encounter took place. Date/Time Current Smoking Status Comment Facility Jul 26, 2020 10:43 AM [place]-TOBACCO FORMER USER [facility] Tobacco Use History This section includes a history of the smoking, or tobacco- related health factors, that were collected on or before the date of the Encounter. The data comes from the [place] facility where the Encounter took place. Date/Time Smoking Status/Tobacco Use Comment [facility] it Jul 26, 2020 10:43 AM [place]-TOBACCO QUIT 15 YRS OR [facility] [place] [facility] Advance Directives: All historical and current Section Date Range: From patient's date of to the date document was created. This section includes ALL of a patient's completed or amended [place] Advance and Rescinded Directives. The entries below indicate that a directive exists for the patient, but an actual copy is not included with this document. The data comes from all [place] facilities. Date Advance Directives Provider Source May 20, 2006 ADVANCE DIRECTIVE [address] Encounter Notes: All associated encounter notes This section contains the clinical notes associated to the Encounter. Date/Time Encounter Note(s) Provider Source May 09, 2021 10:15 AM TELEPHONE ENCOUNTER NOTE: CHUCK VIGIL [facility] LOCAL TITLE: VISN 1 [facility] ACTION REQUIRED [facility] STANDARD TITLE: TELEPHONE ENCOUNTER NOTE DATE OF NOTE: MAY 09, 2021@10:15:26 ENTRY DATE: MAY 09, 2021@10:16:35 AUTHOR: CHUCK VIGIL EXP COSIGNER: URGENCY: STATUS: COMPLETED VISN 1 [facility] ACTION REQUIRED Has ADDENDA The patient, MART WALSH ([id number] ) called the call center. The following identifiers were used to verify th is patient: . SSN. Contact Type of call: CLINICAL INFORMATION/EDUCATION. Caller Response: ADM CALL RESOLVED Caller Area: [facility] Provider Info: LOCAL - JAKE ([id number]) PACT: SO PACT 2 (Focus: Primary Care Only) Primary Care Provider: Shree Monroy PHONE:[phone] Manager Product Support: Belkys Phillips Clinical Associate: Vita Calero Campaign Advisor: Clinton Gomez Clinical POC: Clinical Associate Desmond Calero Administrative POC: Campaign Advisor Clinton Gomez Author: CHUCK VIGIL Comments: [place] called requesting to speak to RN. He did not elaborate. Kindly call back. Evaluation/Management Code: HC PRO PHONE CALL 5- 10 MIN ([id number]). Starting at: 05/09/2021 @ 10:15:26 AM Ending at: 05/09/2021 @ 10:16:05 AM Length: 0 minutes. Chief Complaint: Not applicable to call. Class Code: Other specified counseling. 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
--- OUTSIDE RECORDS SUMMARY | 2022-04-21 09:15 | XMS_ITS | Encounter Summary ---
:1935 Author Organization [facility] Address [address] [place] [address] Support Name Relationship Address Phone BRIAN CHARLES Unavailable [address] [place] [address] BRIAN CHARLES Unavailable [address] [place] [address] BRIAN CHARLES Unavailable [address] [phone] [place] [address] Insurance Providers: All historical and current Section [...] Number Stinson ANTHEM MEDIGAP MEDEX Dec 29, [id number] [phone] Anamika WALSH PATIENT BCBS OF CT PLAN C 2001 3 SPEEDY ANTHEM MEDICARE MEDEX Dec 29, [id number] [phone] Anamika WALSH PATIENT BCBS OF CT SUPPLEMEN BRON 2001 3 SPEEDY [place] Dec 29, [id number] [phone] Anamika GONZALES PATIENT SUPPLEMEN BRONZ [id number] [place] Dec 29, [id number] [phone] Anamika GONZALES PATIENT SUPPLEMEN BRONZ 2001 4 SPEEDY [place] E BCBS OF MEDICARE PSUED May 31, [id number] [phone] Anamika GONZALES PATIENT [place] SUPPLEMEN O [id number] 3 SPEEDY [place] MEDEX BRONZ E BLUE [place]OSS MEDIGAP MEDEX May 31 [id number] [phone] WHEE LER,R PATIENT BLUE [facility] [place] 1999 05 [id number] SPEEDY SHIELD [facility] MEDICARE MEDICARE PART October 29, PART B [id number] [phone] WHEELE R,R PATIENT (WNR) (M) B 2001 RC08 2 SPEEDY MEDICARE MEDICARE PART October 29, PART B [id number] [phone] WHEELE R,R PATIENT (WNR) (M) B 2001 85A 00 SPEEDY MEDICARE MEDICARE PART October 29, PART B [id number] [phone] WHEELE R,R PATIENT (WNR) (M) B 2001 RC08 00 SPEEDY MEDICARE MEDICARE PART October 29, PART B [id number] [phone] WHEELE R,R PATIENT (WNR) (M) B 2001 85A 00 SPEEDY MEDICARE MEDICARE PART October 29, PART B [id number] [phone] WHEELE R,R PATIENT (WNR) (M) B 2001 RC08 00 SPEEDY MEDICARE MEDICARE PART May 31, PART A [id number] [phone] WHEELE R,R PATIENT (WNR) (M) A 1999 RC08 2 SPEEDY MEDICARE MEDICARE PART May 31, PART A [id number] [phone] WHEELE R,R PATIENT (WNR) (M) A 1999 85A 00 SPEEDY MEDICARE MEDICARE PART May 31, PART A [id number] [id number] WHEELE R,R PATIENT (WNR) (M) A 1999 RC08 00 SPEEDY MEDICARE MEDICARE PART May 31, PART A [id number] [phone] WHEELE R,R PATIENT (WNR) (M) A 1999 85A 00 SPEEDY MEDICARE MEDICARE PART May 31, PART A [id number] [phone] WHEELE R,R PATIENT (WNR) (M) A 1999 RC08 00 SPEEDY Selected Encounter This section includes the information on record at [facility] for the Encounter. Date/Time Encounter Type Encounter Description Reason Provider Source May 10, 2021 04:11 Outpatient Encounter PRIMARY CARE/MEDICINE PM [facility] Encounter Template Text not used by [facility] Plan of Treatment: Future Appointments (+ 6 months) and Future Tests (+/- 45 days) The Plan of Treatment section includes future care activities for the patient from all [facility] treatmentfacilities. This section includes future appointments and future orders which are active, pending orscheduled.Future Appointments This section includes appointments that were scheduled to occur 6 months from the date of the Encounter, up to a maximum of 20 appointments. The data comes from all [facility] treatment facilities. Appointment Date/Time Appointment Type Appointment Facili ty Name May 20, 2021 09:15 AM AMBULATORY - MEDICINE [facility] Jun 07, 2021 01:30 PM AMBULATORY - MEDICINE [facility] Oct 26, 2021 01:30 PM AMBULATORY MEDICINE [facility] October 31, 2021 01:30 PM [facility]IC[facility] Lab Results: +/- 30 days of the encounter This section includes the Chemistry and Hematology Lab Results on record with [facility] for the patient. Radiology Reports and Pathology Reports are provided separately, in subsequent sections.Lab Results This section contains the Chemistry/Hematology Results that were resulted 30 days before or 30 daysafter the date of the Encounter. Date/Time Source Result Type Result - Unit Interpretation Reference Range Comment May 31, 2021 07:19 AM [facility] LIPID PANEL FASTING Speci men Type: SERUM No comment enter ed. Ordering Provid er: TOBIAS MONROY Report Released Date/Time: Mar 30, 2021 09:20 AM Reporting Lab: [address] [address] Performing Lab: [address] [address] CHOLESTEROL 144 0-199 TRIGLYCERIDE 93 0-150 LDL calculated 89 0-129 CHOL/HDL 4.0 HDL CHOLESTEROL 36 L 40-60 May 31, 2021 07:19 AM [facility] HEMOGLOBIN A1C PANEL Spec imen Type: BLOOD [...] Mar 30, 2021 09:20 AM Reporting Lab: [facility] [address] [facility] [address] Performing Lab: [facility] [address] [facility] [address] HEMOGLOBIN A1C 6.5 H 4.0-5.6 May 31, 2021 07:19 AM [facility] BASIC METABOLIC PANEL Spe cimen Type: SERUM (fasting) No comment enter ed. Ordering Provid er: TOBIAS MONROY Report Released Date/Time: Mar 30, 2021 09:20 AM Reporting Lab: [address] [address] Performing Lab: [address] [address] UREA NITROGEN 33 H 7-25 GLUCOSE 160 H 65-100 SODIUM 137 135-145 POTASSIUM 5.1 H 3.5-5.0 CHLORIDE 105 100-110 CO2 21 20-30 CREATININE, Serum 1.46 H 0.50-1.40 eGFR (IDMS) 46 L >60 May 31, 2021 07:19 AM [facility] LIVER FUNCTION Specimen Type: SERUM No comment enter ed. Ordering Provid er: TOBIAS MONROY Report Released Date/Time: Mar 30, 2021 09:20 AM Reporting Lab: [facility] [address] [facility] [address] Performing Lab: [facility] [address] [facility] [address] PROTEIN,TOTAL 6.4 6.0-8.3 ALBUMIN 3.4 L 3.5-5.0 ALKALINE PHOSPHATASE 78 40-150 AST 13 5-34 ALT 15 0-55 BILIRUBIN, TOTAL 0.4 0.2-1.2 May 31, 2021 07:19 AM [facility] TSH Specimen Type: SERUM No comment enter ed. Ordering Provid er: TOBIAS MONROY Report Released Date/Time: Mar 30, 2021 09:20 AM Reporting Lab: [address] [place] [address] Performing Lab: [facility] [address] [facility] [address] TSH 1.76 0.35-5.00 May 31, 2021 07:19 AM [facility] VITAMIN B12 Specimen Type: SERUM No comment enter ed. Ordering Provid er: TOBIAS MONROY Report Released Date/Time: Mar 30, 2021 09:20 AM Reporting Lab: [facility] [address] [facility] [address] Performing Lab: [facility] [address] [facility] [address] VITAMIN B12 256 200-900 May 31, 2021 07:19 [facility] MICROALBUMIN CREATININE Spec imen Type: URINE AM RATIO PANEL No comment enter ed. Ordering Provid er: TOBIAS MONROY Report Released Date/Time: Mar 30, 2021 09:20 AM Reporting Lab: [facility] [address] [facility] [address] Performing Lab: [facility] [address] [facility] [address] MICROALBUMIN/CREATININE RATIO 780.6 H 0-29.9 MICROALBUMIN,QUANTITATIVE 68.3 RR U NAVAIL CREATININE URINE 87.50 May 31, 2021 07:19 AM [facility] URINALYSIS Specimen Type: URINE Comment: A posi tive ascorbic acid indicates possible interferences with blood, glucose, nitrite and bilirubin. Ordering Provid er: TOBIAS MONROY Report Released Date/Time: Mar 30, 2021 09:20 AM Reporting Lab: [facility] [address] [facility] [address] Performing Lab: [facility] [address] [facility] [address] UA COLOR Yellow Yellow UA APPEARANCE Clear Clear UA GLUCOSE Negative Negative UA KETONES Negative Neg UA BLOOD Negative Neg UA PROTEIN 100 Neg UA NITRITE Negative Neg UA BILIRUBIN Negative Neg UA SPECIFIC GRAVITY 1.017 1.016-1.02 2 UA pH 5.0 5.0-9.0 UA UROBILINOGEN <2.0 <2.0 UA LEUKOCYTE ESTERASE Negative Neg May 31, 2021 07:19 AM [facility] CBC AND DIFF (AUTO) Speci men Type: BLOOD No comment enter ed. Ordering Provid er: TOBIAS MONROY Report Released Date/Time: Mar 30, 2021 09:20 AM Reporting Lab: [address] [address] Performing Lab: [address] [address] WBC 10.39 4.50-11.00 RBC 3.73 L 4.23-5.66 HGB 11.7 L 12.8-17 HCT 35.6 L 39.2-50.4 MCV 95.4 82-99 MCHC 32.9 30.8-35.1 PLT 397 H 140-360 RDW-CV 14.1 12.0-16.0 Pondera, Abs 0.99 0.30-1.10 MCH 31.4 26.2-32.6 Neut % 55.8 Lymph % 26.9 Pondera % 9.5 Eos % 6.4 Baso % 0.7 Neut, Abs 5.80 2.20-7.60 Lymph, Abs 2.80 1.00-3.20 Eos, Abs 0.66 H 0.03-0.44 Baso, Abs 0.07 0.01-0.13 Immature Gran % 0.7 Immature Gran, Abs 0.07 H 0.00-0.06 May 31, 2021 07:19 [facility] MICROSCOPIC AUTOMATED, Speci men Type: URINE AM URINE Comment: A posi tive ascorbic acid indicates possible interferences with blood, glucose, nitrite and bilirubin. Ordering Provid er: TOBIAS MONROY Report Released Date/Time: Mar 30, 2021 09:20 AM Reporting Lab: [address] [address] Performing Lab: [address] [address] UA WBC 0-5 0-5 UA MUCUS FEW Trace UA RBC 0-2 0-3 UA SQUAMOUS EPITH FEW May 31, 2021 07:19 AM [facility] ETG SCREEN (wx) Specimen Type: URINE Comment: MARY te st are qualitative, any L or H flags only indicate a [facility] alert was sent. This ETG test was developed and its performance characteristics determined by [facility] clinical lab. The [place] Food and Helder g Administration has not approved or cleared this test, FDA clearance or approval is not currently required for clinical use. ETG cutoff 500 ng/mL Ordering Provid er: TOBIAS MONROY Report Released Date/Time: Apr 04, 2021 09:34 AM Reporting Lab: [address] [address] Performing Lab: [facility] [address] [facility] [address] ETG SCREEN (wx) Negative L Negative May 31, 2021 07:19 AM [facility] METHADONE SCREEN Specimen Type: URINE Comment: MARY te st are qualitative, any L or H flags only indicate a [facility] alert was sent. Ordering Provid er: TOBIAS MONROY Report Released Date/Time: Apr 04, 2021 09:34 AM Reporting Lab: [address] [address] Performing Lab: [facility] [address] [facility] [address] METHADONE SCREEN None detected(Negative) L Negative May 31, 2021 07:19 AM [facility] ALCOHOL, ETHYL URINE Spec imen Type: URINE [...] Apr 04, 2021 09:34 AM Reporting Lab: [address] [address] Performing Lab: [address] [address] ALCOHOL, ETHYL URINE NONE-DETECTED NONE- DETECTED, cutoff = 10 mg/dL PH, MARY 5.9 4-10 CREATININE, MARY 88.10 >20 SP.GRAVITY, MARY 1.017 1.003-1.020 May 31, 2021 07:19 [facility] AMPHETAMINES SCREEN PANEL Sp ecimen Type: URINE [...] Apr 04, 2021 09:34 AM Reporting Lab: [address] [address] Performing Lab: [address] [address] AMPHETAMINES SCREEN NONE-DETECTED None-D etected, Cutoff = 1000 ng/mL PH, MARY 5.9 4-10 CREATININE, MARY 88.10 >20 SP.GRAVITY, MARY 1.017 1.003-1.020 May 31, 2021 07:19 AM [facility] FENTANYL SCREEN PANEL Spe cimen Type: URINE [...] Apr 04, 2021 09:34 AM Reporting Lab: [address] [address] Performing Lab: [address] [address] FENTANYL SCREEN NONE-DETECTED Negative: Cutoff = 1.00 ng/mL PH, MARY 5.9 4-10 CREATININE, MARY 85.35 >20 SP.GRAVITY, MARY 1.017 1.003-1.020 May 31, 2021 07:19 BREWER BENZODIAZEPINES SCREEN PANEL Specimen Type: URINE AM [...] Apr 04, 2021 09:34 AM Reporting Lab: [address] [address] Performing Lab: [address] [address] BENZODIAZEPINES SCREEN NONE-DETECTED Non e-Detected, Cutoff = 200 ng/mL PH, MARY 5.9 4-10 CREATININE, MARY 88.10 >20 SP.GRAVITY, MARY 1.017 1.003-1.020 May 31, 2021 07:19 BRE[facility] BUPRENORPHINE SCREEN PANEL S pecimen Type: URINE [...] Apr 04, 2021 09:34 AM Reporting Lab: [address] [address] Performing Lab: [address] [address] BUPRENORPHINE (URINE) NONE-DETECTED None Detected, Cutoff = 10.0 ng/mL PH, MARY 5.9 4-10 CREATININE, MARY 88.10 >20 SP.GRAVITY, MARY 1.017 1.003-1.020 May 31, 2021 07:19 AM [facility] COCAINE SCREEN PANEL Spec imen Type: URINE [...] Apr 04, 2021 09:34 AM Reporting Lab: [address] [address] Performing Lab: [address] [address] COCAINE SCREEN NONE-DETECTED None-Detect ed,Cutoff = 300 ng/mL PH, MARY 5.9 4-10 CREATININE, MARY 88.10 >20 SP.GRAVITY, MARY 1.017 1.003-1.020 May 31, 2021 07:19 BRE[facility] CANNABINOIDS SCREEN PANEL Sp ecimen Type: URINE [...] Apr 04, 2021 09:34 AM Reporting Lab: [facility] [address] [address] Performing Lab: [address] [address] CANNABINOIDS SCREEN NONE-DETECTED None-D etected,Cutoff = 50 ng/mL PH, MARY 5.9 4-10 CREATININE, MARY 88.10 >20 SP.GRAVITY, MARY 1.017 1.003-1.020 May 31, 2021 07:19 AM BRE[facility]ER OPIATES SCREEN PANEL Spec imen Type: URINE [...] Apr 04, 2021 09:34 AM Reporting Lab: [facility] [address] [facility] [address] Performing Lab: [facility] [address] [facility] [address] OPIATES SCREEN NONE-DETECTED None-Detect ed, Cutoff = 300 ng/mL PH, MARY 5.9 4-10 CREATININE, MARY 88.10 >20 SP.GRAVITY, MARY 1.017 1.003-1.020 May 31, 2021 07:19 AM [facility] OXYCODONE SCREEN PANEL Sp ecimen Type: URINE [...] Apr 04, 2021 09:34 AM Reporting Lab: [facility] [address] [facility] [address] Performing Lab: [facility] [address] [facility] [address] OXYCODONE SCREEN NONE-DETECTED None-Dete cted, Cutoff = 100 ng/mL PH, MARY 5.9 4-10 CREATININE, MARY 88.10 >20 SP.GRAVITY, MARY 1.017 1.003-1.020 Social History: Smoking Status (Most current) and Tobacco Use (All prior to encounter date) This section includes the most current, and the historical, smoking and tobacco-related health factors from the [facility] facility where the Encounter took place.Current Smoking Status This section includes the most current smoking, or tobacco-related health factor, from the [facility] facility where the Encounter took place. Date/Time Current Smoking Status Comment Facility Jul 26, 2020 10:43 AM HI-TOBACCO FORMER USER [facility] Tobacco Use History This section includes a history of the smoking, or tobacco- related health factors, that were collected on or before the date of the Encounter. The data comes from the [facility] facility where the Encounter took place. Date/Time Smoking Status/Tobacco Use Comment [facility] it Jul 26, 2020 10:43 AM HI-TOBACCO QUIT 15 YRS OR [facility] Advance Directives: All historical and current Section Date Range: From patient's date of to the date document was created. This section includes ALL of a patient's completed or amended [facility] Advance and Rescinded Directives. The entries below indicate that a directive exists for the patient, but an actual copy is not included with this document. The data comes from all [facility] facilities. Date Advance Directives Provider Source May 20, 2006 ADVANCE DIRECTIVE BAYLEE SHUKLA Encounter Notes: All associated encounter notes This section contains the clinical notes associated to the Encounter. Date/Time Encounter Note(s) Provider Source May 10, 2021 04:25 PM MEDICATION MGT NOTE: CRYSTAL JAQUEZ FORMERLY [facility] LOCAL TITLE: MEDICATION RENEWAL STANDARD TITLE: MEDICATION MGT NOTE DATE OF NOTE: MAY 10, 2021@16:25 ENTRY DATE: MAY 10, 2021@16:25:19 AUTHOR: CRYSTAL JAQUEZ EXP COSIGNER: URGENCY: STATUS: COMPLETED Medication Renewal Kindly Renew for Mail ACCU-CHEK GUIDE (GLUCOSE) TEST STRIP USE 1 STRIP TO TEST BLOOD SUGARS ONCE DAILY N EEDED [NEW VERSION OF TEST STRIP TO USE WITH GUIDE ME METER] Active Outpatient Medications (including Supplie s): Active Outpatient Medications Status 1) ALBUTEROL 100/IPRATRO 20MCG 120D PO INHL INHA LE 1 ACTIVE PUFF BY MOUTH EVERY 6 HOURS NEEDED FOR BREAT LORA 2) DILTIAZEM (EQV-TIAZAC) 240MG 24HR CAP TAKE ON E ACTIVE CAPSULE BY MOUTH ONCE DAILY 3) FUROSEMIDE 20MG TAB TAKE ONE TABLET BY MOUTH EVERY ACTIVE DAY TO REMOVE FLUID/CONTROL BLOOD PRESSURE 4) LORATADINE 10MG TAB TAKE ONE TABLET BY MOUTH ONCE ACTIVE (S) DAILY NEEDED FOR ALLERGY 5) METFORMIN HCL 500MG TAB TAKE ONE TABLET BY MO UTH ACTIVE TWICE DAILY FOR DIABETES 6) MOMETASONE FUROATE 220MCG ORAL INHL 60 INHALE 2 PUFFS ACTIVE BY MOUTH TWICE DAILY --RINSE MOUTH AFTER EACH U SE 7) OMEPRAZOLE 20MG CAP,EC TAKE ONE CAPSULE BY MO UTH ACTIVE DAILY 8) PSYLLIUM SF ORAL PWD PKT TAKE 2 PACKETS BY MO UTH ONCE ACTIVE (S) DAILY (MIX WITH AT LEAST 8OZ. OF WATER OR OTHER FLUID) 9) SIMVASTATIN 40MG TAB TAKE ONE-HALF TABLET BY MOUTH AT ACTIVE BEDTIME 10) TRAMADOL HCL 50MG TAB TAKE ONE TABLET BY YANN TH EVERY ACTIVE 12 HOURS NEEDED 11) VALSARTAN 320MG TAB TAKE ONE TABLET BY MOUTH DAILY ACTIVE *THIS IS A HIGHER DOSE* 12) ZAFIRLUKAST 20MG TAB TAKE ONE TABLET BY MOUT H TWICE ACTIVE DAILY Active Non-VA Medications Status 1) Non-VA ASPIRIN 81MG EC TAB 81MG BY MOUTH ACTI VE 2) Non-VA MULTIVITAMIN/MINERALS CAP/TAB 1 TABLET BY ACTIVE MOUTH 3) Non-VA OTHER CAP/TAB EITHER CELEBREX,NAPROSYN OR ACTIVE IBUPROFEN TWICE DAILY 4) Non-VA OTHER CAP/TAB NEXIUM 40MG DAILY ACTIVE 16 Total Medications /es/ TANYA WYATT-public speaking instructor Nurse Signed: 05/10/2021 16:25 Receipt Acknowledged By: * AWAITING SIGNATURE * TOBIAS MONROY
--- OUTSIDE RECORDS SUMMARY | 2022-04-21 09:18 | XMS_ITS | Encounter Summary ---
:1935 Author Organization [facility] Address [address] [place] [id number] Support Name Relationship Address Phone BRIAN CHARLES Unavailable [address] [place] [address] BRIAN CHARLES Unavailable [address] [place] [address] BRIAN CHARLES Unavailable [address] [phone] [place] [address] Insurance Providers: All historical and current Section [...] Number Stinson ANTHEM MEDIGAP MEDEX Dec 29, [id number] [phone] Anamika WALSH PATIENT BCBS OF CT PLAN C 2001 3 SPEEDY ANTHEM MEDICARE MEDEX Dec 29, [id number] [phone] Anamika WALSH PATIENT BCBS OF CT SUPPLEMEN BRON 2001 3 SPE[place] E [place]BS [place] MED[place] MED[place] Dec 29, [id number] [phone] Anamika GONZALES PATIENT SUPPLEMEN BRONZ 2001 4 [place] Dec 29, [id number] [phone] Anamika GONZALES PATIENT SUPPLEMEN BRONZ 2001 4 SPEEDY [place] E BCBS OF MEDICARE PSUED May 31, [id number] [phone] Anamika GONZALES PATIENT [place] SUPPLEMEN O 1999 3 SPEEDY HERMIN[place] MEDEX BRONZ E BLUE CROSS MEDIGAP MEDEX May [id number] [phone] WHEE LER,R PATIENT [facility] Desmond MESA 1999 05 [id number] 4 [facility] MEDICARE MEDICARE PART October 29, PART B [id number] [phone] WHEELE R,R PATIENT (WNR) (M) B 2001 RC08 2 SPEEDY MEDICARE MEDICARE PART October 29, PART B [id number] [phone] WHEELE R,R PATIENT (WNR) (M) B 2001 85A 00 SPE[place]Y MEDICARE MEDICARE PART October 29, PART B [id number] [id number] WHEELE R,R PATIENT (WNR) (M) B 2001 RC08 00 [place] MEDICARE MEDICARE PART October 29, PART B [id number] [phone] WHEELE R,R PATIENT (WNR) (M) B 2001 85A 00 [place] MEDICARE MEDICARE PART October 29, PART B [id number] [phone] WHEELE R,R PATIENT (WNR) (M) B 2001 RC08 00 [place] MEDICARE MEDICARE PART May 31, PART A [id number] [phone] WHEELE R,R PATIENT (WNR) (M) A 1999 RC08 2 [place] MEDICARE MEDICARE PART May 31, PART A [id number] [id number] WHEELE R,R PATIENT (WNR) (M) A 1999 85A 00 [place] MEDICARE MEDICARE PART May 31, PART A [id number] [phone] WHEELE R,R PATIENT (WNR) (M) A 1999 RC08 00 [place] MEDICARE MEDICARE PART May 31, PART A [id number] [phone] WHEELE R,R PATIENT (WNR) (M) A 1999 85A 00 SPE[place] MEDICARE MEDICARE PART May 31, PART A [id number] [phone] WHEELE R,R PATIENT (WNR) (M) A 1999 RC08 00 SPEEDY Selected Encounter This section includes the information on record at [place] for the Encounter. Date/Time Encounter Type Encounter Description Reason Provider Source Oct 26, 2021 01:30 Outpatient Encounter COMMUNITY CARE PM CONSULT IHE Encounter Template Text not used by [facility] Plan of Treatment: Future Appointments (+ 6 months) and Future Tests (+/- 45 days) The Plan of Treatment section includes future care activities for the patient from all [place] [facility]. This section includes future appointments and future orders which are active, pending orscheduled.Future Appointments This section includes appointments that were scheduled to occur 6 months from the date of the Encounter, up to a maximum of 20 appointments. The data comes from all [place] treatment facilities. Appointment Date/Time Appointment Type Appointment Facili ty Name October 31, 2021 01:30 PM AMBULATORY MEDICINE [facility] November 24, 2021 09:[address] [facility] Mar 14, 2022 08:30 AM AM[facility]ULATORY MEDICINE [place] Mar 14, 2022 09:[address] [facility] Mar 21, 2022 10:30 AM [facility] Mar 27, 2022 09:30 AM [facility] Apr 16, 2022 09:30 AM [facility] MEDICINE [facility] Lab Results: +/- 30 days of the encounter This section includes the Chemistry and Hematology Lab Results on record with [place] for the patient. Radiology Reports and Pathology Reports are provided separately, in subsequent sections.Lab Results This section contains the Chemistry/Hematology Results that were resulted 30 days before or 30 daysafter the date of the Encounter. Date/Time Source Result Type Result - Unit Interpretation Reference Range Comment November 08, 2021 07:32 AM [place] LIPID PANEL FASTING Speci men Type: SERUM No comment enter ed. Ordering Provid er: ELEUTERIO ORONA Report Released Date/Time: Oct 17, 2021 04:03 PM Reporting Lab: [facility] [address] [facility] [address] Performing Lab: [facility] [address] [facility] [address] CHOLESTEROL 132 <7-199 TRIGLYCERIDE 78 0-150 LDL calculated 82 0-129 CHOL/HDL 3.9 HDL CHOLESTEROL 34 L 40-60 November 08, 2021 07:32 AM [place] LIVER FUNCTION Specimen Type: SERUM No comment enter ed. Ordering Provid er: ELEUTERIO ORONA Report Released Date/Time: Oct 17, 2021 04:03 PM Reporting Lab: [facility] [address] [facility] [address] Performing Lab: [facility] [address] [facility] [address] PROTEIN,TOTAL 6.6 6.0-8.3 ALBUMIN 3.0 L 3.5-5.0 ALKALINE PHOSPHATASE 96 40-150 AST 12 5-34 ALT 13 <6-55 BILIRUBIN, TOTAL 0.4 0.2-1.2 November 08, 2021 07:32 AM [place] HEMOGLOBIN A1C PANEL Spec imen Type: BLOOD [...] Oct 17, 2021 04:03 PM Reporting Lab: [facility] [address] [facility] [address] Performing Lab: [address] [address] HEMOGLOBIN A1C 6.9 H 4.0-5.6 November 08, 2021 07:32 [place] BASIC METABOLIC PANEL Specim en Type: SERUM AM (fasting) No comment enter ed. Ordering Provid er: ELEUTERIO ORONA Report Released Date/Time: Oct 17, 2021 04:03 PM Reporting Lab: [facility] [address] [facility] [address] Performing Lab: [address] [address] UREA NITROGEN 32 H 7-25 GLUCOSE 146 H 65-100 SODIUM 137 135-145 POTASSIUM 5.0 3.5-5.0 CHLORIDE 105 100-110 CO2 24 20-30 CREATININE, Serum 1.28 0.50-1.40 eGFR(CKD-EPI 2020) 54 L >60 November 08, 2021 07:32 AM [facility] CBC AND DIFF (AUTO) Speci men Type: BLOOD Comment: MCV Ve rified by repeat analysis. Ordering Provid er: ELEUTERIO ORONA Report Released Date/Time: Oct 17, 2021 04:03 PM Reporting Lab: [facility] [address] [facility] [address] Performing Lab: [facility] [address] [facility] [address] WBC 11.68 H 4.50-11.00 RBC 3.63 L 4.23-5.66 HGB 10.2 L 12.8-17 HCT 32.5 L 39.2-50.4 MCV 89.5 82-99 MCHC 31.4 30.8-35.1 PLT 396 H 140-360 RDW-CV 16.2 H 12.0-16.0 [place], Abs 1.06 0.30-1.10 MCH 28.1 26.2-32.6 Neut % 57.0 Lymph % 26.4 Irion % 9.1 Eos % 6.3 Baso % [...] smoking and tobacco-related health factors from the [place] facility where the Encounter took place.Current Smoking Status This section includes the most current smoking, or tobacco-related health factor, from the [place] facility where the Encounter took place. Date/Time Current Smoking Status Comment Facility Jul 26, 2020 10:43 AM VA-TOBACCO FORMER USER [facility] Tobacco Use History This section includes a history of the smoking, or tobacco- related health factors, that were collected on or before the date of the Encounter. The data comes from the [place] facility where the Encounter took place. Date/Time Smoking Status/Tobacco Use Comment [facility] Jul 26, 2020 10:43 AM [place]-TOBACCO QUIT 15 YRS OR [facility] Advance Directives: All historical and current Section Date Range: From patient's date of to the date document was created. This section includes ALL of a patient's completed or amended [place] Advance and Rescinded Directives. The entries below indicate that a directive exists for the patient, but an actual copy is not included with this document. The data comes from all [place] facilities. Date Advance Directives Provider Source May 20, 2006 ADVANCE DIRECTIVE BAYLEE SHUKLA [place] Encounter Notes: All associated encounter notes This section contains the clinical notes associated to the Encounter. Date/Time Encounter Note(s) Provider Source November 13, 2021 08:14 AM NURSING NONVA NOTE: MIRA BUSTAMANTE [facility] TRL [facility]STR[facility] LOCAL TITLE: OUTSIDE LAB RESULTS [facility] STANDARD TITLE: NURSING NONVA NOTE DATE OF NOTE: NOVEMBER 13, 2021@08:14 ENTRY DATE: NOVEMBER 13, 2021@08:14:28 AUTHOR: MIRA BUSTAMANTE EXP COSIGNER: URGENCY: STATUS: COMPLETED Outside Lab Values Date of Lab draw: Sep Location of lab tests: [facility] Outside Lab Values: Albumin, Urine 1+ Glucose, Urine NEGATIVE Ketones, Urine NEGATIVE Bilirubin, Urine NEGATIVE Hemoglobin, Urine NEGATIVE Nitrite, Urine NEGATIVE Leukocyte, Urine NEGATIVE Urobilinogen NORMAL WBC's, Urine <1 RBC's, Urine 1 Squamous Epith <1 Mucus SLIGHT Protein, Total Urine Random *90 TP/Cr Ratio ?1.52 Creatinine, Urine 59.3 Malb/Creat Ratio ?1001.3 Urine Creat For Micro Alb 59.3 Micro-Albumin *593.8 /es/ MIRA BUSTAMANTE RN-BC,BSN,MHA REGISTERED NURSE Signed: 11/13/2021 08:16 November 13, 2021 08:12 AM NONVA NOTE: MIRA BUSTAMANTE [place] [facility] LOCAL TITLE: NON-VA MEDICAL RECORD SUMMARY [facility] STANDARD TITLE: NONVA NOTE DATE OF NOTE: NOVEMBER 13, 2021@08:12 ENTRY DATE: NOVEMBER 13, 2021@08:12:13 AUTHOR: MIRA BUSTAMANTE EXP COSIGNER: URGENCY: STATUS: COMPLETED NON VA Medical Report This data contains relevant information copied & pasted from a NON VA source. Efforts are made to ensure congruency between th is note & the original. This note not DOES NOT contain the entirety of t he original. Please see [facility] to view the original no te/document. CLINIC NOTE Visit Type: In-person visit Date: Sep Place of Service: [facility] Service/Department: NEPHROLOGY Mr. Walsh presents for the evaluation of mild CKD and non-nephrotic proteinuria in the setting of long?standing diab etes and hypertension. Mart is a great mica. He has had diabetes for a couple of decades. He denies retinopathy. He states that his diabetes has been well controlled. He also has hypertension for many years as well. He has been on atenolol and valsartan in the past. Reviewing his data, he has a creatinin e of about 1.2 to 1.3 mg/ dL representing mild CKD. His creatinine has been a s high as around 1.5 but overall has been very stable. He does also have proteinuria and has been on dilt for this however he tells me he stopped the dilt/ brought the bottle in because he was not sure if he still should be ta oralia it. ASSESSMENT: 1. 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 Serologic w/u was undertaken previously and was negative. Based on this we strongly suspect that his underlying renal disea se is secondary to diabetic nephropathy and hypertension. For his hypertensi on and proteinuria He is already on a maximal dose of ARB. He is on diltiazem 240 mg daily for both the hypertension and also for the anti-proteinuric e ffect of this drug. As mentioned he ahd stopped taking it, BP w as still quite high today, I asked him to restart it. He is also now on doxazosin. He i s doing well, we will get a PCR/ACR today as he had all his other labs done recently. Will see him in 6 months . Upcoming Appointments: 11/24/2021 09:00 CWM/SO/PACT 2 SENT TO SCANNING /selam/ MIRA BUSTAMANTE, RN-BC,BSN,MHA REGISTERED NURSE Signed: 11/13/2021 08:14 Receipt Acknowledged By: * AWAITING SIGNATURE * CINDY BAER
--- OUTSIDE RECORDS SUMMARY | 2022-04-21 09:18 | XMS_ITS | Encounter Summary ---
:1935 Author Organization [facility] Address [address] [place] [address] Support Name Relationship Address Phone BRIAN CHARLES Unavailable [address] [place] [address] BRIAN CHARLES Unavailable [address] [place] [address] BRIAN CHARLES Unavailable [address] [phone] [place] [address] Insurance Providers: All historical and current Section [...] Number Stinson ANTHEM MEDIGAP MEDEX Dec 29, [id number] [phone] Anamika WALSH PATIENT BCBS OF CT PLAN C 2001 3 SPEEDY ANTHEM MEDICARE MEDEX Dec 29, [id number] [phone] Anamika WALSH PATIENT BCBS OF CT SUPPLEMEN BRON 2001 3 SPE[place] E BCBS [place] MEDICARE MEDEX Dec 29, [id number] [phone] Anamika GONZALES PATIENT SUPPLEMEN BRONZ 2001 4 SPE[place] Dec 29, [id number] [phone] Anamika GONZALES PATIENT SUPPLEMEN BRONZ 2001 4 SPEEDY [place] E BCBS OF MEDICARE PSUED May 31, [id number] [phone] Anamika GONZALES PATIENT [place] SUPPLEMEN O 1999 3 SPEEDY [place] MEDEX BRONZ E BLUE CROSS MEDIGAP MEDEX May 31 [id number] [phone] WHEE LER,R PATIENT BLUE [facility] Desmond EAST 1999 05 [id number] 4 SPEEDY SHIELD [facility] MEDICARE MEDICARE PART October 29, PART B [id number] [phone] WHEELE R,R PATIENT (WNR) (M) B 2001 RC08 2 [place] MEDICARE MEDICARE PART October 29, PART B [id number] [phone] WHEELE R,R PATIENT (WNR) (M) B 2001 85A 00 [place] MEDICARE MEDICARE PART October 29, PART B [id number] [phone] WHEELE R,R PATIENT (WNR) (M) B 2001 RC08 00 [place] MEDICARE MEDICARE PART October 29, PART B [id number] [phone] WHEELE R,R PATIENT (WNR) (M) B 2001 85A 00 [place] MEDICARE MEDICARE PART October 29, PART B [id number] [phone] WHEELE R,R PATIENT (WNR) (M) B 2001 RC08 00 [place] MEDICARE MEDICARE PART May 31, PART A [id number] [phone] WHEELE R,R PATIENT (WNR) (M) A 1999 RC08 2 [place] MEDICARE MEDICARE PART May 31, PART A [id number] [phone] WHEELE R,R PATIENT (WNR) (M) A 1999 85A 00 [place] MEDICARE MEDICARE PART May 31, PART A [id number] [phone] WHEELE R,R PATIENT (WNR) (M) A 1999 RC08 00 [place] MEDICARE MEDICARE PART May 31, PART A [id number] [phone] WHEELE R,R PATIENT (WNR) (M) A 1999 85A 00 [place] MEDICARE MEDICARE PART May 31, PART A [id number] [phone] WHEELE R,R PATIENT (WNR) (M) A 1999 RC08 00 SPEEDY Selected Encounter This section includes the information on record at [place] for the Encounter. Date/Time Encounter Type Encounter Description Reason Provider Source November 01, 2021 02:15 Outpatient Encounter PRIMARY CARE/MEDICINE PM IHE Encounter Template Text not used by [place] Plan of Treatment: Future Appointments (+ 6 months) and Future Tests (+/- 45 days) The Plan of Treatment section includes future care activities for the patient from all [place] treatmentfacilities. This section includes future appointments and future orders which are active, pending orscheduled.Future Appointments This section includes appointments that were scheduled to occur 6 months from the date of the Encounter, up to a maximum of 20 appointments. The data comes from all [place] treatment facilities. Appointment Date/Time Appointment Type Appointment Facili ty Name November 24, 2021 09:00 AM AMBULATORY MEDICINE [facility] Mar 14, 2022 08:30 AM [facility]ORY MEDICINE [facility] Mar 14, 2022 09:00 AM [facility] Mar 21, 2022 10:30 AM [facility]BULATORY REHAB MEDIC[facility] Mar 27, 2022 09:30 AM [facility] Apr 16, 2022 09:30 AM [facility] MEDICINE [facility] Lab Results: +/- 30 days of the [...] Result - Unit Interpretation Reference Range Comment Dec 01, 2021 12:00 AM [facility] OCCULT BLOOD FIT X1 Speci men Type: FECES SCREEN Comment: Vials submitted to the lab without collection dates. Stability of vial for testing is 15 days after sample application. Interpret results with caution. H* INDICATES A VA ALERT HAS BEEN SENT Ordering Provid er: ELEUTERIO ORONA Report Released Date/Time: November 24, 2021 10:36 AM Reporting Lab: [facility] [address] [facility] [address] Performing Lab: [facility] [address] [facility] [address] OCCULT BLOOD (FIT)#1 OF 1 Negative NEG November 08, 2021 07:32 AM [facility] HEMOGLOBIN A1C PANEL Spec imen Type: BLOOD [...] Oct 17, 2021 04:03 PM Reporting Lab: [facility] [address] [facility] [address] Performing Lab: [facility] [address] [facility] [address] HEMOGLOBIN A1C 6.9 H 4.0-5.6 November 08, 2021 07:32 AM [facility] LIPID PANEL FASTING Speci men Type: SERUM No comment enter ed. Ordering Provid er: ELEUTERIO ORONA Report Released Date/Time: Oct 17, 2021 04:03 PM Reporting Lab: [address] [address] Performing Lab: [facility] [address] [facility] [address] CHOLESTEROL 132 <7-199 TRIGLYCERIDE 78 0-150 LDL calculated 82 0-129 CHOL/HDL 3.9 HDL CHOLESTEROL 34 L 40-60 November 08, 2021 07:32 AM [facility] LIVER FUNCTION Specimen Type: SERUM No comment enter ed. Ordering Provid er: ELEUTERIO ORONA Report Released Date/Time: Oct 17, 2021 04:03 PM Reporting Lab: [facility] [address] [facility] [address] Performing Lab: [facility] [address] [facility] [address] PROTEIN,TOTAL 6.6 6.0-8.3 ALBUMIN 3.0 L 3.5-5.0 ALKALINE PHOSPHATASE 96 40-150 AST 12 5-34 ALT 13 <6-55 BILIRUBIN, TOTAL 0.4 0.2-1.2 November 08, 2021 07:32 [facility] BASIC METABOLIC PANEL Specim en Type: SERUM AM (fasting) No comment enter ed. Ordering Provid er: ELEUTERIO ORONA Report Released Date/Time: Oct 17, 2021 04:03 PM Reporting Lab: [facility] [address] [facility] [address] Performing Lab: [address] [address] UREA NITROGEN 32 H 7-25 GLUCOSE 146 H 65-100 SODIUM 137 135-145 POTASSIUM 5.0 3.5-5.0 CHLORIDE 105 100-110 CO2 24 20-30 CREATININE, Serum 1.28 0.50-1.40 eGFR(CKD-EPI 2020) 54 L >60 November 08, 2021 07:32 AM [facility] CBC AND DIFF (AUTO) Speci men Type: BLOOD Comment: MCV Ve rified by repeat analysis. Ordering Provid er: ELEUTERIO ORONA Report Released Date/Time: Oct 17, 2021 04:03 PM Reporting Lab: [address] [address] Performing Lab: [address] [address] WBC 11.68 H 4.50-11.00 RBC 3.63 L 4.23-5.66 HGB 10.2 L 12.8-17 HCT 32.5 L 39.2-50.4 MCV 89.5 82-99 MCHC 31.4 30.8-35.1 PLT 396 H 140-360 RDW-CV 16.2 H 12.0-16.0 [place], Abs 1.06 0.30-1.10 MCH 28.1 26.2-32.6 Neut % 57.0 Lymph % 26.4 [place] % 9.1 Eos % 6.3 Baso % [...] 26, 2020 10:43 AM VA-TOBACCO FORMER USER [facility] Tobacco Use History This section includes a history of the smoking, or tobacco- related health factors, that were collected on or before the date of the Encounter. The data comes from the [place] facility where the Encounter took place. Date/Time Smoking Status/Tobacco Use Comment [facility] it Jul 26, 2020 10:43 AM [place]-TOBACCO QUIT 15 YRS OR [place] [facility] [place] [facility] Advance Directives: All historical and current [...] Encounter. Date/Time Encounter Note(s) Provider Source November 01, 2021 02:15 PM NURSING NONVA NOTE: MALISSA CALERO [facility] LOCAL TITLE: OUTSIDE LAB RESULTS STANDARD TITLE: NURSING NONVA NOTE DATE OF NOTE: NOVEMBER 01, 2021@14:15 ENTRY DATE: NOVEMBER 01, 2021@14:15:23 AUTHOR: MALISSA CALERO EXP COSIGNER: URGENCY: STATUS: COMPLETED Outside Lab Values Date of Lab draw: Sep Location of lab tests: [facility] MD URINE ALB/CREAT RATIO 1,001.3 ALB/MG/G CREAT UR 59.3 PROTEIN/ CREATINE RATIO 1.52 /selam/ MALISSA CALERO LPN LPN Signed: 11/01/2021 14:20
--- OUTSIDE RECORDS SUMMARY | 2022-04-21 09:18 | XMS_ITS | Encounter Summary ---
:[address] [facility] Address [address] [place] [id number] Support Name Relationship Address Phone BRIAN CHARLES Unavailable [address] [place] [address] BRIAN CHARLES Unavailable [address] [place] [address] BRIAN CHARLES Unavailable [address] [phone] [place] [address] Insurance Providers: All historical and current Section [...] Number Stinson ANTHEM MEDIGAP MEDEX Dec 29, [id number] [phone] Anamika WALSH PATIENT BCBS OF CT PLAN C 2001 3 SPEEDY ANTHEM MEDICARE MEDEX Dec 29, [id number] [phone] Anamika WALSH PATIENT BCBS OF CT SUPPLEMEN BRON 2001 3 SPE[place] Dec 29, [id number] [phone] Anamika GONZALES PATIENT SUPPLEMEN BRONZ 2001 4 SPE[place] E [place] Dec 29, [id number] [phone] Anamika GONZALES PATIENT SUPPLEMEN BRONZ 2001 4 SPEEDY [place] E BCBS OF MEDICARE PSUED May 31, [id number] [phone] Anamika GONZALES PATIENT [place] SUPPLEMEN O [id number] 3 SPEEDY [place] MEDEX BRONZ E BLUE CROSS MEDIGAP MEDEX May 31, [id number] [phone] WHEE LER,R PATIENT BLUE PLAN [place] EAST 1999 05 [id number] 4 OBERT SHIELD OF [place] MEDICARE MEDICARE PART October 29, PART B [id number] WHEELE R,R PATIENT (WNR) (M) B 2001 85A 00 OBERT MEDICARE MEDICARE PART October 29, PART B [id number] WHEELE R,R PATIENT (WNR) (M) B 2001 RC08 00 OBERT MEDICARE MEDICARE PART October 29, PART B [id number] [phone] WHEELE R,R PATIENT (WNR) (M) B 2001 RC08 2 OBERT MEDICARE MEDICARE PART October 29, PART B [id number] [id number] WHEELE R,R PATIENT (WNR) (M) B 2001 85A 00 OBERT MEDICARE MEDICARE PART October 29, PART B [id number] [phone] WHEELE R,R PATIENT (WNR) (M) B 2001 RC08 00 OBERT MEDICARE MEDICARE PART May 31, PART A [id number] [phone] WHEELE R,R PATIENT (WNR) (M) A 1999 RC08 00 SPEEDYERT MEDICARE MEDICARE PART May 31, PART A [id number] WHEELE R,R PATIENT (WNR) (M) A 1999 RC08 2 OBERT MEDICARE MEDICARE PART May 31, PART A [id number] [id number] WHEELE R,R PATIENT (WNR) (M) A 1999 85A 00 SPEEDYERT MEDICARE MEDICARE PART May 31, PART A [id number] [phone] WHEELE R,R PATIENT (WNR) (M) A 1999 RC08 00 SPEEDY MEDICARE MEDICARE PART May 31, PART A [id number] [phone] WHEELE R,R PATIENT (WNR) (M) A 1999 85A SPEEDY Selected Encounter This section includes the information on record at [place] for the Encounter. Date/Time Encounter Type Encounter Reason Provider Source Description October 31, 2021 OFFICE O/P EST PRIMARY ICD-10-CM Z23 CINDY BAER 01:30 PM MINIMAL PROB CARE/MEDICINE Encounter for immunization with Provider Comments: Encounter for Immunization IHE Encounter Template Text not used by [place] Assessments - Encounter Diagnoses This section includes the primary and secondary diagnoses documented for the Encounter. Date/Time Primary/Secondary Diagnosis Name Provider Source Diagnosis October 31, 2021 PRIMARY Encounter for CINDY BAER 01:35 PM immunization October 31, 2021 SECONDARY Other specified CINDY BAER 01:35 PM counseling Plan of Treatment: Future Appointments (+ 6 months) and Future Tests (+/- 45 days) The Plan of Treatment section includes future care activities for the patient from all [place] treatmentfacilities. This section includes future appointments and future orders which are active, pending orscheduled.Future Appointments This section includes appointments that were scheduled to occur 6 months from the date of the Encounter, up to a maximum of 20 appointments. The data comes from all [place] treatment facilities. Appointment Date/Time Appointment Type Appointment Facili ty Name November 24, 2021 09:00 AM [facility] Mar 14, 2022 08:30 AM AMBULATORY MEDICINE [facility] Mar 14, 2022 09:00 AM [facility] Mar 21, 2022 10:30 AM [facility] Mar 27, 2022 09:30 AM AMBULATORY MEDICINE [facility] Apr 16, 2022 09:30 AM [facility] MEDICINE [facility] Lab Results: +/- 30 days of the [...] Range Comment November 08, 2021 07:32 AM [facility] LIPID PANEL FASTING Speci men Type: SERUM No comment enter ed. Ordering Provid er: ELEUTERIO ORONA Report Released Date/Time: Oct 17, 2021 04:03 PM Reporting Lab: [facility] [address] [address] Performing Lab: [facility] [address] [address] CHOLESTEROL 132 <7-199 TRIGLYCERIDE 78 0-150 LDL calculated 82 0-129 CHOL/HDL 3.9 HDL CHOLESTEROL 34 L 40-60 November 08, 2021 07:32 AM [facility] HEMOGLOBIN A1C PANEL Spec imen Type: BLOOD Comment: Testin g performed by [facility] certified Rain Enzymatic with CV <2%. The [...] Oct 17, 2021 04:03 PM Reporting Lab: [facility] [address] [address] Performing Lab: [address] [address] HEMOGLOBIN A1C 6.9 H 4.0-5.6 November 08, 2021 07:32 [facility] BASIC METABOLIC PANEL Specim en Type: SERUM AM (fasting) No comment enter ed. Ordering Provid er: ELEUTERIO ORONA Report Released Date/Time: Oct 17, 2021 04:03 PM Reporting Lab: [facility] [address] [address] Performing Lab: [facility] [address] [address] UREA NITROGEN 32 H 7-25 GLUCOSE 146 H 65-100 SODIUM 137 135-145 POTASSIUM 5.0 3.5-5.0 CHLORIDE 105 100-110 CO2 24 20-30 CREATININE, Serum 1.28 0.50-1.40 eGFR(CKD-EPI 2020) 54 L >60 November 08, 2021 07:32 AM [facility] LIVER FUNCTION Specimen Type: SERUM No comment enter ed. Ordering Provid er: ELEUTERIO ORONA Report Released Date/Time: Oct 17, 2021 04:03 PM Reporting Lab: [facility] [address] [address] Performing Lab: [facility] [address] [address] PROTEIN,TOTAL 6.6 6.0-8.3 ALBUMIN 3.0 L 3.5-5.0 ALKALINE PHOSPHATASE 96 40-150 AST 12 5-34 ALT 13 <6-55 BILIRUBIN, TOTAL 0.4 0.2-1.2 November 08, 2021 07:32 AM [facility] CBC AND DIFF (AUTO) Speci men Type: BLOOD Comment: MCV Ve rified by repeat analysis. Ordering Provid er: ELEUTERIO ORONA Report Released Date/Time: Oct 17, 2021 04:03 PM Reporting Lab: [facility] [address] [address] Performing Lab: [facility] [address] [address] WBC 11.68 H 4.50-11.00 RBC 3.63 L 4.23-5.66 HGB 10.2 L 12.8-17 HCT 32.5 L 39.2-50.4 MCV 89.5 82-99 MCHC 31.4 30.8-35.1 PLT 396 H 140-360 RDW-CV 16.2 H 12.0-16.0 [place], Abs 1.06 0.30-1.10 MCH 28.1 26.2-32.6 Neut % 57.0 Lymph % 26.4 [place] % 9.1 Eos % 6.3 Baso % 0.6 Neut, Abs 6.66 2.20-7.60 Lymph, Abs 3.08 1.00-3.20 Eos, Abs 0.74 H 0.03-0.44 Baso, Abs 0.07 0.01-0.13 Immature Gran % 0.6 Immature Gran, Abs 0.07 H 0.00-0.06 Immunizations: All administered on the encounter date This section contains immunizations associated to the Encounter. Immunization Series Date Issued Reaction Comments COVID-19 (MODERNA), MRNA, 4 October 31, 2021 MO D; [id number]; 02/09/2022 LNP-S, PF, 100 MCG/0.5ML DOSE OR 50 MCG/0.25ML DOSE Social History: Smoking Status (Most current) [...] Comment Facility Jul 16, 2018 10:34 AM [place]-TOBACCO QUIT 15 YRS OR MORE [facility] Tobacco Use History This section includes a history of the smoking, or tobacco- related health factors, that were collected on or before the date of the Encounter. The data comes from the [place] facility where the Encounter took place. Date/Time Smoking Status/Tobacco Use Comment [facility] Jul 16, 2018 10:34 AM [facility]-TOBACCO QUIT 15 YRS OR [place] MORE Aug 16, 2017 09:44 AM QUIT TOBACCO USE > 7 YEARS [facility] vet quit 30 years ago Sep 13, 2016 02:56 PM QUIT TOBACCO USE > 7 YEARS [place] quit 30 years ago Jul 25, 2015 12:44 PM QUIT TOBACCO USE > 7 YEARS [facility] Feb 05, 2005 01:52 PM HISTORY OF SMOKING SHERRELL CHAUDHARY Patient states he quit smoking 1 8 years ago. Sep 27, 2003 08:09 AM HISTORY OF SMOKING SHERRELL IELD stopped tobacco 20 years ago May 25, 2002 08:00 AM HISTORY OF SMOKING BERTINF IELD Stopped tobacco 16 years ago Sep 26, 2001 11:28 AM QUIT TOBACCO USE > 7 YEARS [facility] Jan 24, 2001 09:14 AM HISTORY [...] May 20, 2006 ADVANCE DIRECTIVE BAYLEE SHUKLA [facility] Encounter Notes: All associated encounter notes This section contains the clinical notes associated to the Encounter. Date/Time Encounter Note(s) Provider Source October 31, 2021 01:34 PM PREVENTIVE MEDICINE NURSING NOTE: ANDRZEJ BAER LOCAL TITLE: CLINICAL REMINDERS/NURSING STANDARD TITLE: PREVENTIVE MEDICINE NURSING NOTE DATE OF NOTE: OCTOBER 31, 2021@13:34 ENTRY DATE: OCTOBER 31, 2021@13:34:16 AUTHOR: ICNDY BAER EXP COSIGNER: URGENCY: STATUS: COMPLETED COVID-19 Immunization: The patient was given the vaccine information f act sheet for this vaccine which lists the benefits and side effects of th e vaccine and which reviews the risks of the vaccine. The fact sheet was re viewed with the patient and they were given an opportunity to ask questions . The patient denied any prior severe reaction to this vaccine or its co mponents or a severe allergic reaction such as anaphylaxis to any va ccine or to any injectable therapy. The patient gave verbal consent to rec eive the vaccine. Booster Dose (half-dose): The patient received Moderna COVID-19 Vaccine 0 .25 ml IM. Series: Series 4 MVX (Manuf); Lot#; Exp Date: MOD; [id number]; 01/29 Administration Anatomic site: Right Deltoid Vaccine administered without complications. The patient was advised to remain in the facility for 15 minute s post vaccination. The patient was given a completed COVID-19 vacc ination record card, a copy of the [place] Side Effects and Adverse Event s Reporting Fact Sheet and instructed on how to report any adver se reactions. /selam/ CARMINE LUON RN-BC REGISTERED NURSE Signed: 10/31/2021 13:35
--- OUTSIDE RECORDS SUMMARY | 2022-04-21 09:18 | XMS_ITS | Encounter Summary ---
:1935 Author Organization Department [facility] Address [address] [place] [address] Support Name Relationship Address Phone BRIAN CHARLES Unavailable [address] [place] [address] BRIAN CHARLES Unavailable [address] [place] [address] BRIAN CHARLES Unavailable [address] [phone] [place] [address] Insurance Providers: All historical and current Section [...] Number Stinson ANTHEM MEDIGAP MEDEX Dec 29, [id number] [phone] Anamika WALSH PATIENT BCBS OF CT PLAN C 2001 3 SPEEDY ANTHEM MEDICARE MEDEX Dec 29, [id number] [phone] Anamika WALSH PATIENT BCBS OF CT SUPPLEMEN BRON 2001 3 SPE[place] Dec 29, [id number] [phone] Anamika GONZALES PATIENT SUPPLEMEN BRONZ 2001 4 SPE[place] Dec 29, [id number] [phone] Aanmika GONZALES PATIENT SUPPLEMEN BRONZ 2001 4 SPEEDY [place] E BCBS OF MEDICARE PSUED May 31, [id number] [phone] Anamika GONZALES PATIENT [place] SUPPLEMEN O 1999 3 SPEEDY HERMIN[place] MEDEX BRONZ E BLUE CROSS MEDIGAP MEDEX May 31 [id number] [phone] WHEE LER,R PATIENT BLUE [facility] [place] 1999 05 [id number] 4 SPEEDY SHIELD [facility] MEDICARE MEDICARE PART October 29, PART B [id number] [phone] WHEELE R,R PATIENT (WNR) (M) B 2001 RC08 2 SPEEDY MEDICARE MEDICARE PART October 29, PART B [id number] [phone] WHEELE R,R PATIENT (WNR) (M) B 2001 85A 00 SPEEDY MEDICARE MEDICARE PART October 29, PART B [id number] [phone] WHEELE R,R PATIENT (WNR) (M) B 2001 RC08 00 SPE[place] MEDICARE MEDICARE PART October 29, PART B [id number] [phone] WHEELE R,R PATIENT (WNR) (M) B 2001 85A 00 SPE[place] MEDICARE MEDICARE PART October 29, PART B [id number] [phone] WHEELE R,R PATIENT (WNR) (M) B 2001 RC08 00 SPEEDY MEDICARE MEDICARE PART May 31, PART A [id number] WHEELE R,R PATIENT (WNR) (M) A 1999 RC08 2 SPE[place] MEDICARE MEDICARE PART May 31, PART A [id number] [phone] WHEELE R,R PATIENT (WNR) (M) A 1999 85A 00 SPE[place] MEDICARE MEDICARE PART May 31, PART A [id number] [phone] WHEELE R,R PATIENT (WNR) (M) A 1999 RC08 00 SPE[place] MEDICARE MEDICARE PART May 31, PART A [id number] [phone] WHEELE R,R PATIENT (WNR) (M) A 1999 85A 00 SPE[place] MEDICARE MEDICARE PART May 31, PART A [id number] [phone] WHEELE R,R PATIENT (WNR) (M) A 1999 RC08 00 SPEEDY Selected Encounter This section includes the information on record at [facility] for the Encounter. Date/Time Encounter Type Encounter Description Reason Provider Source Oct 06, 2021 12:00 Outpatient Encounter EVENT (HISTORICAL) AM IHE Encounter Template Text not used by [facility] Plan of Treatment: Future Appointments (+ 6 months) and Future Tests (+/- 45 days) The Plan of Treatment section includes future care activities for the patient [facility] [place] [facility] This section includes future appointments and future orders which are active, pending orscheduled.Future Appointments This section includes appointments that were scheduled to occur 6 months from the date of the Encounter, up to a maximum of 20 appointments. The data comes from all [place] treatment facilities. Appointment Date/Time Appointment Type Appointment Facili ty Name Oct 26, 2021 01:30 PM AMBULATORY MEDICINE [facility] October 31, 2021 01:30 PM AMBULATORY MEDICINE [facility] November 24, 2021 09:00 AM [facility] Mar 14, 2022 08:30 AM AMBULATORY MEDICINE [place] Mar 14, 2022 09:00 AM AMBULATORY [facility] Mar 21, 2022 10:30 AM [facility] Mar 27, 2022 09:[address] [facility] MEDICINE [facility] Social History: Smoking Status (Most current) and Tobacco Use (All prior to encounter date) This section includes the most current, and the historical, smoking and tobacco-related health factors from the [place] facility where the Encounter took place.Current Smoking Status This section includes the most current smoking, or tobacco-related health factor, from the [place] facility where the Encounter took place. Date/Time Current Smoking Status Comment Facility Jul 26, 2020 10:43 AM [place]-TOBACCO FORMER USER [facility] Tobacco Use History This section includes a history of the smoking, or tobacco- related health factors, that were collected on or before the date of the Encounter. The data comes from the [place] facility where the Encounter took place. Date/Time Smoking Status/Tobacco Use Comment [facility] Jul 26, 2020 10:43 [facility] Advance Directives: All historical and current Section Date Range: From patient's date of to the date document was created. This section includes ALL of a patient's completed or amended [place] Advance and Rescinded Directives. The entries below indicate that a directive exists for the patient, but an actual copy is not included with this document. The data comes from all [place] facilities. Date Advance Directives Provider Source May 20, 2006 ADVANCE DIRECTIVE BAYLEE SHUKLA [place] Encounter Notes: All associated encounter notes This section contains the clinical notes associated to the Encounter. Date/Time Encounter Note(s) Provider Source Oct 06, 2021 12:00 AM NURSING ADMINISTRATIVE NOTE: [place] CNTRL WSTRN LOCAL TITLE: NON-VA PRESCRIPTION [place] [facility] STANDARD TITLE: NURSING ADMINISTRATIVE NOTE DATE OF NOTE: OCT 06, 2021 ENTRY DATE: OCTOBER 30 022@15:33:11 AUTHOR: JIN LARSEN EXP COSIGNER: URGENCY: STATUS: COMPLETED VistA Imaging - Scanned Document SCANNED DOCUMENT SIGNATURE NOT REQUIRED Electronically Filed: 10/30/2021 by: JIN LARSEN HAND SAMPLE MAKER
--- OUTSIDE RECORDS SUMMARY | 2022-04-21 09:19 | XMS_ITS | Encounter Summary ---
:1935 Author Organization Department [facility] Address [address] [place] [address] Support Name Relationship Address Phone BRIAN CHARLES Unavailable [address] [place] [address] BRIAN CHARLES Unavailable [address] [place] [address] BRIAN CHARLES Unavailable [address] [phone] [place] [address] Insurance Providers: All historical and current Section [...] Number Stinson ANTHEM MEDIGAP MEDEX Dec 29, [id number] [phone] Anamika WALSH PATIENT BCBS OF CT PLAN C 2001 3 SPEEDY ANTHEM MEDICARE MEDEX Dec 29, [id number] [phone] Anamika WALSH PATIENT BCBS OF CT SUPPLEMEN BRON 2001 3 SPE[place] Dec 29, [id number] [phone] Anamika GONZALES PATIENT SUPPLEMEN BRONZ 2001 4 SPE[place] Dec 29, [id number] [phone] Anamika GONZALES PATIENT SUPPLEMEN BRONZ 2001 4 SPEEDY [place] E BCBS OF MEDICARE PSUED May 31, [id number] [phone] Anamika GONZALES PATIENT [place] SUPPLEMEN O 1999 3 SPEEDY [place] MEDEX BRONZ E BLUE CROSS MEDIGAP MEDEX May 31 [id number] [phone] WHEE LER,R PATIENT BLUE [facility] [place] 1999 05 [id number] 4 SPEEDY SHIELD [facility] MEDICARE MEDICARE PART October 29, PART B [id number] [phone] WHEELE R,R PATIENT (WNR) (M) B 2001 RC08 2 SPEED[place] MEDICARE MEDICARE PART October 29, PART B [id number] [phone] WHEELE R,R PATIENT (WNR) (M) B 2001 85A 00 SPE[place] MEDICARE MEDICARE PART October 29, PART B [id number] [phone] WHEELE R,R PATIENT (WNR) (M) B 2001 RC08 00 [place] MEDICARE MEDICARE PART October 29, PART B [id number] [phone] WHEELE R,R PATIENT (WNR) (M) B 2001 85A 00 [place] MEDICARE MEDICARE PART October 29, PART B [id number] [phone] WHEELE R,R PATIENT (WNR) (M) B 2001 RC08 00 SPE[place] MEDICARE MEDICARE PART May 31, PART A [id number] [phone] WHEELE R,R PATIENT (WNR) (M) A 1999 RC08 2 SPE[place] MEDICARE MEDICARE PART May 31, PART A [id number] [phone] WHEELE R,R PATIENT (WNR) (M) A 1999 85A 00 SPE[place] MEDICARE MEDICARE PART May 31, PART A [id number] [phone] WHEELE R,R PATIENT (WNR) (M) A 1999 RC08 00 [place] MEDICARE MEDICARE PART May 31, PART A [id number] [phone] WHEELE R,R PATIENT (WNR) (M) A 1999 85A 00 SPEED[place] MEDICARE MEDICARE PART May 31, PART A [id number] [phone] WHEELE R,R PATIENT (WNR) (M) A 1999 RC08 00 SPEEDY Selected Encounter This section includes the information on record at ID for the Encounter. Date/Time Encounter Type Encounter Description Reason Provider Source Sep 01, 2021 12:00 Outpatient Encounter EVENT (HISTORICAL) AM IHE Encounter Template Text not used by [facility] Plan of Treatment: Future Appointments (+ 6 months) and Future Tests (+/- 45 days) The Plan of Treatment section includes future care activities for the patient from all [place] [facility]. This section includes future appointments and future orders which are active, pending orscheduled.Future Appointments This section includes appointments that were scheduled to occur 6 months from the date of the Encounter, up to a maximum of 20 appointments. The data comes from all [place] treatment facilities. Appointment Date/Time Appointment Type Appointment Facili ty Name Oct 26, 2021 01:30 PM AMBULATORY - MEDICINE [facility] October 31, 2021 01:30 PM AMBULATORY MEDICINE [facility] November 24, 2021 09:00 AM AMBULATORY MEDICINE [place] Social History: Smoking Status (Most current) and Tobacco Use (All prior to encounter date) This section includes the most current, and the historical, smoking and tobacco-related health factors from the [place] facility where the Encounter took place.Current Smoking Status This section includes the most current smoking, or tobacco-related health factor, from the [place] facility where the Encounter took place. Date/Time Current Smoking Status Comment Facility Jul 26, 2020 10:43 AM [place]-TOBACCO FORMER USER [facility] Tobacco Use History This section includes a history of the smoking, or tobacco- related health factors, that were collected on or before the date of the Encounter. The data comes from the [place] facility where the Encounter took place. Date/Time Smoking Status/Tobacco Use Comment [facility] Jul 26, 2020 10:43 AM [place]-TOBACCO QUIT 15 YRS OR [facility] Advance Directives: All historical and current Section Date Range: From patient's date of to the date document was created. This section includes ALL of a patient's completed or amended [place] Advance and Rescinded Directives. The entries below indicate that a directive exists for the patient, but an actual copy is not included with this document. The data comes from all [place] facilities. Date Advance Directives Provider Source May 20, 2006 ADVANCE DIRECTIVE BAYLEE SHUKLA [place] Encounter Notes: All associated encounter notes This section contains the clinical notes associated to the Encounter. Date/Time Encounter Note(s) Provider Source Sep 01, 2021 12:00 AM NONVA NOTE: [facility] LOCAL TITLE: NON-[facility] T[facility]: NONVA NOTE DATE OF NOTE: SEP 01, 2021 ENTRY DATE: NOVEMBER 21 022@15:04:50 AUTHOR: JIN LARSEN EXP COSIGNER: URGENCY: STATUS: COMPLETED VistA Imaging - Scanned Document SCANNED DOCUMENT SIGNATURE NOT REQUIRED Electronically Filed: 11/21/2021 by: JIN LARSEN DELIVERY TECH
--- OUTSIDE RECORDS SUMMARY | 2022-04-21 09:19 | XMS_ITS | Encounter Summary ---
:1935 Author Organization [facility] rs Address [address] [place] [address] Support Name Relationship Address Phone BRIAN CHARLES Unavailable [address] [place] [address] BRIAN CHARLES Unavailable [address] [place] [address] BRIAN CHARLES Unavailable [address] [phone] [place] [address] Insurance Providers: All historical and current Section [...] Number [place]inson ANTHEM MEDIGAP MEDEX Dec 29, [id number] [phone] Anamika WALSH PATIENT BCBS OF CT PLAN C 2001 3 SPEEDY ANTHEM MEDICARE MEDEX Dec 29, [id number] [phone] Anamika WALSH PATIENT BCBS OF CT SUPPLEMEN BRON 2001 3 SPEED[place] HERMIN[place] E BCBS [place] MEDIC[place] MED[place] Dec 29, [id number] [phone] Anamika GONZALES PATIENT SUPPLEMEN BRONZ [id number] SPEED[place] HERMIN[place] E BCBS [place] MEDICARE MEDEX Dec 29, [id number] [phone] Anamika GONZALES PATIENT SUPPLEMEN BRONZ 2001 4 SPEEDY HERMINIA E BCBS OF MEDICARE PSUED May 31, [id number] [phone] Anamika GONZALES PATIENT [place] SUPPLEMEN O [id number] 3 SPEEDY HERMINIA MEDEX BRONZ E [place]UE [place] MEDIGAP MEDEX May 31, [id number] [phone] WHEE LER,R PATIENT [facility] [place] 1999 05 [id number] OBERT SHIELD OF E [place] MEDICARE MEDICARE PART October 29, PART B [id number] WHEELE R,R PATIENT (WNR) (M) B 2001 RC08 OBERT MEDICARE MEDICARE PART October 29, PART B [id number] WHEELE R,R PATIENT (WNR) (M) B 2001 RC08 2 OBERT MEDICARE MEDICARE PART October 29, PART B [id number] [phone] WHEELE R,R PATIENT (WNR) (M) B 2001 85A 00 OBERT MEDICARE MEDICARE PART October 29, PART B [id number] WHEELE R,R PATIENT (WNR) (M) B 2001 RC08 00 OBERT MEDICARE MEDICARE PART October 29, PART B [id number] WHEELE R,R PATIENT (WNR) (M) B 2001 85A 00 OBERT MEDICARE MEDICARE PART May 31, PART A [id number] WHEELE R,R PATIENT (WNR) (M) A 1999 RC08 00 OBERT MEDICARE MEDICARE PART May 31, PART A [id number] WHEELE R,R PATIENT (WNR) (M) A 1999 RC08 2 OBERT MEDICARE MEDICARE PART May 31, PART A [id number] WHEELE R,R PATIENT (WNR) (M) A 1999 85A 00 SPEEDYERT MEDICARE MEDICARE PART May 31, PART A [id number] WHEELE R,R PATIENT (WNR) (M) A 1999 RC08 00 SPEEDY MEDICARE MEDICARE PART May 31, PART A [id number] WHEELE R,R PATIENT (WNR) (M) A 1999 85A 00 SPEEDY Selected Encounter This section includes the information on record at [place] for the Encounter. Date/Time Encounter Type Encounter Reason Provider Source Description November 24, 2021 OFFICE O/P EST PRIMARY ICD-10-CM D64.9 PRATIK ORONA 09:00 AM HI 40-54 MIN CARE/MEDICINE Anemia, NA unspecified with Provider Comments: Anemia, unspecified (ICD-10-CM D64.9) IHE Encounter Template Text not used by [facility] Assessments - Encounter Diagnoses This section includes the primary and secondary diagnoses documented for the Encounter. Date/Time Primary/Secondary Diagnosis Name Provider Source Diagnosis November 24, 2021 PRIMARY Anemia, unspecified PRATIK ORONA 03:53 PM NA November 24, 2021 SECONDARY Chronic ischemic PRATIK ORONA LD 03:53 PM heart disease, NA unspecified November 24, 2021 SECONDARY Chronic kidney SANDRITAITIPRATIK MIRAMONTES 03:53 PM disease, NA unspecified November 24, 2021 SECONDARY Disorder of the DAVITIPRATIK MIRAMONTESCOREY D 03:53 PM skin and NA subcutaneous tissue, unspecified November 24, 2021 SECONDARY Encounter for PRATIK ORONA 03:53 PM immunization NA November 24, 2021 SECONDARY Gastro-esophageal DAVITIPRATIK MIRAMONTES ELD 03:53 PM reflux disease NA without esophagitis November 24, 2021 SECONDARY Hyperlipidemia, PRATIK ORONACOREY D 03:53 PM unspecified NA November 24, 2021 SECONDARY Hypertensive PRATIK ORONA 03:53 PM 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/unsp chr kdny November 24, 2021 SECONDARY 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) DAVITIPRATIK MIRAMONTES [facility] 03:53 PM use of aspirin NA November 24, 2021 SECONDARY snf (current) DAVPRATIK VALVERDE [facility] 03:53 PM use of oral NA hypoglycemic drugs November 24, 2021 SECONDARY Other asthma PRATIK ORONAFIELD 03:53 PM NA November 24, 2021 SECONDARY 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 DAVITIPRATIK MIRAMONTESCOREY D 03:53 PM (current) drug NA therapy November 24, 2021 SECONDARY Presence of right DAVPRATIK VALVERDE ELD 03:53 PM artificial knee NA joint November 24, 2021 SECONDARY Tachycardia, PRATIK ORONA 03:53 PM unspecified NA November 24, 2021 SECONDARY Type 2 diabetes PRATIK ORONAEL D 03:53 PM mellitus without NA complications November 24, 2021 SECONDARY Unilateral primary DAVPRATIK VALVERDE IELD 03:53 PM osteoarthritis, NA right knee November 24, 2021 SECONDARY Unspecified macular DAVITIPRATIK MIRAMONTES [facility] 03:53 PM degeneration NA Plan of Treatment: Future Appointments (+ 6 [...] Date/Time Appointment Type Appointment Facili ty Name Mar 14, 2022 08:30 AM [facility] Mar 14, 2022 09:00 AM [facility] Mar 21, 2022 10:30 AM [facility] Mar 27, 2022 09:30 AM [facility] Apr 16, 2022 09:30 AM [facility] May 21, 2022 01:00 PM [facility] Lab Results: +/- 30 days [...] Range Comment Dec 01, 2021 12:00 AM [facility] OCCULT BLOOD FIT X1 Speci men Type: FECES SCREEN Comment: Vials submitted to the lab without collection dates. Stability of vial for testing is 15 days after sample application. Interpret results with caution. H* INDICATES A [place] ALERT HAS BEEN SENT Ordering Provid er: ELEUTERIO ORONA Report Released Date/Time: November 24, 2021 10:36 AM Reporting Lab: [facility] [address] [facility] [address] Performing Lab: [facility] [address] [facility] [address] OCCULT BLOOD (FIT)#1 OF 1 Negative NEG November 08, 2021 07:32 AM [facility] HEMOGLOBIN A1C PANEL Spec imen Type: BLOOD Comment: Testin g performed by [facility] certified Rain Enzymatic with CV <2%. The [...] Oct 17, 2021 04:03 PM Reporting Lab: [facility] [address] [facility] [address] Performing Lab: [facility] [address] [facility] [address] HEMOGLOBIN A1C 6.9 H 4.0-5.6 November 08, 2021 07:32 AM [facility] LIPID PANEL FASTING Speci men Type: SERUM No comment enter ed. Ordering Provid er: ELEUTERIO ORONA Report Released Date/Time: Oct 17, 2021 04:03 PM Reporting Lab: [address] [address] Performing Lab: [facility] [address] [facility] [address] CHOLESTEROL 132 <7-199 TRIGLYCERIDE 78 0-150 LDL calculated 82 0-129 CHOL/HDL 3.9 HDL CHOLESTEROL 34 L 40-60 November 08, 2021 07:32 [facility] BASIC METABOLIC PANEL Specim en Type: SERUM AM (fasting) No comment enter ed. Ordering Provid er: ELEUTERIO ORONA Report Released Date/Time: Oct 17, 2021 04:03 PM Reporting Lab: [facility] [address] [facility] [address] Performing Lab: [facility] [address] [facility] [address] UREA NITROGEN 32 H 7-25 GLUCOSE 146 H 65-100 SODIUM 137 135-145 POTASSIUM 5.0 3.5-5.0 CHLORIDE 105 100-110 CO2 24 20-30 CREATININE, Serum 1.28 0.50-1.40 eGFR(CKD-EPI 2020) 54 L >60 November 08, 2021 07:32 AM [facility] LIVER FUNCTION Specimen Type: SERUM No comment enter ed. Ordering Provid er: ELEUTERIO ORONA Report Released Date/Time: Oct 17, 2021 04:03 PM Reporting Lab: [address] [address] Performing Lab: [address] [address] PROTEIN,TOTAL 6.6 6.0-8.3 ALBUMIN 3.0 L 3.5-5.0 ALKALINE PHOSPHATASE 96 40-150 AST 12 5-34 ALT 13 <6-55 BILIRUBIN, TOTAL 0.4 0.2-1.2 November 08, 2021 07:32 AM [facility] CBC AND DIFF (AUTO) Speci men Type: BLOOD Comment: MCV Ve rified by repeat analysis. Ordering Provid er: ELEUTERIO ORONA Report Released Date/Time: Oct 17, 2021 04:03 PM Reporting Lab: [address] [address] Performing Lab: [address] [address] WBC 11.68 H 4.50-11.00 RBC 3.63 L 4.23-5.66 HGB 10.2 L 12.8-17 HCT 32.5 L 39.2-50.4 MCV 89.5 82-99 MCHC 31.4 30.8-35.1 PLT 396 H 140-360 RDW-CV 16.2 H 12.0-16.0 [place], Abs 1.06 0.30-1.10 MCH 28.1 26.2-32.6 Neut % 57.0 Lymph % 26.4 [place] % 9.1 Eos % 6.3 Baso % 0.6 Neut, Abs 6.66 2.20-7.60 Lymph, Abs 3.08 1.00-3.20 Eos, Abs 0.74 H 0.03-0.44 Baso, Abs 0.07 0.01-0.13 Immature Gran % 0.6 Immature Gran, Abs 0.07 H 0.00-0.06 Vital Signs: All taken on the encounter date This section contains inpatient and outpatient Vital Signs collected on the date of the Encounter. Date/Time Temperature Pulse Blood Respiratory SP02 Pain Height Weight Ahsan dy Source Pressure Rate Mass Index November 24/66 2021 09:28 mm[Hg] IELD AM November 24, 97.9 F 71 150/65 20 /min 96 % 8 240.2 34 2021 09:27 /min mm[Hg] lb IELD AM Immunizations: All administered on the encounter date This section contains immunizations associated to the Encounter. Immunization Series Date Issued Reaction Comments ZOSTER RECOMBINANT 1 November 24, 2021 Social History: Smoking Status (Most current) and [...] place. Date/Time Current Smoking Status Comment Facility November 24, 2021 09:00 AM VA-TOBACCO FORMER USER [facility] Tobacco Use History This section includes a history of the smoking, or tobacco- related health factors, that were collected on or before the date of the Encounter. The data comes from the [place] facility where the Encounter took place. Date/Time Smoking Status/Tobacco Use Comment [facility] November 24, 2021 09:00 AM VA-TOBACCO QUIT 15 YRS OR JAKE MORE Jul 16, 2018 10:34 AM VA-TOBACCO FORMER USER [facility] Jul 16, 2018 10:34 AM VA-TOBACCO QUIT 15 YRS OR JAKE MORE Aug 16, 2017 09:44 AM QUIT TOBACCO USE > 7 YEARS [facility] AGO vet quit 30 years ago Sep 13, 2016 02:56 PM QUIT TOBACCO USE > 7 YEARS [facility] AGO quit 30 years ago Jul 25, 2015 12:44 PM QUIT TOBACCO USE > 7 YEARS [facility] AGO Feb 05, 2005 01:52 PM HISTORY OF SMOKING SHERRELL CHAUDHARY Patient states he quit smoking 1 8 years ago. Sep 27, 2003 08:09 AM HISTORY OF SMOKING SHERRELL CHAUDHARY stopped tobacco 20 years ago May 25, 2002 08:00 AM HISTORY OF SMOKING SHERRELL IELD Stopped tobacco 16 years ago Sep 26, 2001 11:28 AM QUIT TOBACCO USE > 7 YEARS [facility] AGO Jan 24, 2001 09:14 AM HISTORY [...] Encounter. Date/Time Encounter Note(s) Provider Source November 24, 2021 09:28 AM PREVENTIVE MEDICINE NURSING NOTE: KARRI PRAKASH LOCAL TITLE: CLINICAL REMINDERS/NURSING STANDARD TITLE: PREVENTIVE MEDICINE NURSING NOTE DATE OF NOTE: NOVEMBER 24, 2021@09:28 ENTRY DATE: NOVEMBER 24, 2021@09:28:24 AUTHOR: KARRI WRIGHT EXP COSIGNER: URGENCY: STATUS: COMPLETED CLINICAL REMINDERS/NURSING Has ADDENDA Advance Directive Screen: Patient has an Advance Directive on file at [facility]. No updates are needed at this time. The patient received education about Advance Di rectives and written notification of his/her rights. Suicide Screen: C-SSRS Screening [place] Suicide Severity Rating Scale (C-SSRS) screener 1. Over the past month, have you wished you wer e or wished you could go to sleep and not wake up? No 2. Over the past month, have you had any actual thoughts of killing yourself? No 3. Over the past month, have you been thinking about how you might do this? Response not required due to responses to other questions. 4. Over the past month, have you had these thou ghts and had some intention of acting on them? Response not required due to responses to other questions. 5. Over the past month, have you started to wor k out or worked out the details of how to kill yourself? Response not required due to responses to other questions. 6. If yes, at any time in the past month did yo u intend to carry out this plan? Response not required due to responses to other questions. 7. In your lifetime, have you ever done anythin g, started to do anything, or prepared to do anything to end you r life (for example, collected pills, obtained a gun, gave away valu shasta, went to the roof but didn't jump)? No 8. If YES, was this within the past 3 months? Response not required due to responses to other questions. Diabetic Eye Exam: Diabetic Eye Exam already scheduled inside/outs [facility], or patient already in eye clinic recall. DM/PVD/ESRD Foot Exam: [facility] [place] DECLINED Diabetic/PVD Foot Exam at this time. Depression Screening: Perform PHQ-2 A PHQ-2 screen was performed. The score was 0 w hich is a negative screen for depression. Over the past two weeks, how often have you bee n bothered by the following problems? 1. Little interest or pleasure in doing things Not at all 2. Feeling down, depressed, or hopeless Not at all Tobacco Use Screening: The patient is a former tobacco user. The patient quit fifteen or more years ago. Alcohol Use Screen (AUDIT-C): Alcohol Screen: SCREEN FOR ALCOHOL (AUDIT-C) An alcohol screening test (AUDIT-C) was negativ e (score=1). 1. How often did you have a drink containing al cohol in the past year? Monthly or less 2. How many drinks containing alcohol did you h ave on a typical day when you were drinking in the past year? One or two drinks 3. How often did you have six or more drinks on one occasion in the past year? Never Herpes Zoster (Shingles) Vaccine: The patient received recombinant zoster vaccine (RZV) 0.5 ml IM in Right deltoid. 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 Last [facility] Exam from: [facility] in [place], [place]. 2. Last Foot Exam from: Dr. Han in [place], [place]. THANKS! /selam/ KARRI WRIGHT LPN LPN Signed: 11/24/2021 09:51 Receipt Acknowledged By: 11/28/2021 09:24 /selam/ ADAM RINCON, [place], [facility] 11/24/2021 ADDENDUM STATUS: COMPLETED Request to [facility] - Fax receipt confirmed Request to WINNIE Solorio pends provision of Fax #, after office reopens on 11/28/2021. [facility]: 11/24/2021 12:52 11/28/2021 ADDENDUM STATUS: COMPLETED Request to Natalia HAN DPM - Fax receipt conf alaina. /selam/ [facility]: 11/28/2021 09:24 November 24, 2021 09:00 AM PHYSICIAN NOTE: ELEUTERIO ORONA LOCAL TITLE: MD NOTE STANDARD TITLE: PHYSICIAN NOTE DATE OF NOTE: NOVEMBER 24, 2021@09:00 ENTRY DATE: NOVEMBER 24, 2021@09:00:06 AUTHOR: ELEUTERIO ORONA EXP COSIGNER: URGENCY: STATUS: COMPLETED PRIMARY CARE VISIT MART ANANDER, is a 86 yo WHITE MALE [place] who presents at the [facility] for: Health maintenance TYPE OF VISIT: Face to face. First visit with me . On this visit: Complains of ongoing b/l knee pain, L>R. Chronic unchanged. Uses tramadol with some benefits. Offers no other complaints. Has b een doing fairly well at baseline. Reports normal appetite. He does not r outinely exercise due to his knee problem, but patient reports he has a pool, he has been swimming, and walking in the pool. He has lost about 12 pounds over the last couple of years, he was 252 pounds in 2019, currently weighs 240 pounds. He does not follow certain diet, reports eating a lot of pasta and potatoes. Per patient he does not eat much when vegetables if at all. NON VA Providers: PCP, Dr. Mart Sheets at the [facility]. Last seen 3 we ks ago. Next appointment in December. Active problems - Computerized Problem List is t he source for the followin. Under care of multiple providers 2. Trimalleolar fracture 3. 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 Unspecified disorder of kidney and ureter 6. Osteoarthritis * 7. Personal History of Colonic Polyps 8. Mixed hyperlipidemia 9. Diabetes Mellitus Type II or unspecified 10. Essential hypertension 11. GERD 12. Asthma, unspecified type , without mention of status asthmaticus or acute exa The following VA and Non-VA meds were reconciled with patient: Active Outpatient Medications (including Supplie s): Issue [...] 30 days Sig: INHALE 1 PUFF Refills: 9 Last:10-24-21 BY MOUTH EVERY 6 HOURS NEEDED FOR Expr:12-28 BREATHING 3) ATORVASTATIN CALCIUM 80MG TAB Qty: 45 ACTIVE (S) Issu:10-09-21 for 90 days Sig: TAKE ONE-HALF TABLET Refills: 1 Last:12-25-21 BY MOUTH ONCE DAILY FOR CHOLESTEROL Expr: 4) DILTIAZEM (EQV-TIAZAC) 240MG 24HR CAP ACTIVE Issu:10-19-21 Qty: 90 for 90 days Sig: TAKE ONE Refills: [address]:10-19-21 CAPSULE BY MOUTH ONCE DAILY Expr:10-20-22 5) DOXAZOSIN MESYLATE 2MG TAB Qty: 30 for ACTIVE Issu:10-09-21 30 days Sig: TAKE ONE TABLET BY MOUTH Refills: 2 Last:10-29-21 ONCE DAILY Expr:10-10-22 6) FUROSEMIDE 20MG TAB Qty: 90 for 90 days ACTIV E Issu:10-09-21 Sig: TAKE ONE TABLET BY MOUTH EVERY Refills: 1 Last:10-09-21 DAY TO REMOVE FLUID/CONTROL BLOOD Expr:10-10-22 PRESSURE 7) 10MG TAB Qty: 90 for 90 days ACTIVE Issu:100 12-19 Sig: TAKE ONE TABLET BY MOUTH ONCE Refills: 1 L ast:06-03-21 DAILY NEEDED FOR ALLERGY Expr:04-06-22 8) METFORMIN HCL 500MG TAB Qty: 180 for 90 ACTIV E Issu:04-05-21 days Sig: TAKE ONE TABLET BY MOUTH Refills: 1 L ast:11-09-21 TWICE DAILY FOR DIABETES Expr:04-06-22 9) METOPROLOL TARTRATE 25MG TAB Qty: 180 ACTIVE (S) Issu:10-09-21 for 90 days Sig: TAKE ONE TABLET BY Refills: 1 Last:12-25-21 MOUTH TWICE DAILY FOR BLOOD Expr:10-10-22 PRESSURE/HEART 10) MOMETASONE FUROATE 220MCG ORAL INHL 60 ACTIV E Issu:01-18-21 Qty: 1 for 30 days Sig: INHALE 2 Refills: 3 Las t:10-24-21 PUFFS BY MOUTH TWICE DAILY --RINSE Expr: 2 MOUTH AFTER EACH USE 11) OMEPRAZOLE 20MG CAP,EC Qty: 90 for 90 ACTIVE Issu:10-19-21 days Sig: TAKE ONE CAPSULE BY MOUTH Refills: 3 Last:11-30-21 DAILY Expr:10-20-22 12) PSYLLIUM SF ORAL PWD Qty: 300 for 30 ACTIVE Issu:10-19-21 days Sig: TAKE 2 TEASPOONFULS BY Refills: [address]:10-19-21 MOUTH ONCE DAILY NEEDED (MIX WITH Expr:10-20 AT LEAST 8OZ. OF WATER OR OTHER FLUID) 13) SIMVASTATIN 40MG TAB Qty: 45 for 90 HOLD Iss u:06-07-21 days Sig: TAKE ONE-HALF TABLET BY Refills: 1 MOUTH AT BEDTIME Expr:06-08-22 14) VALSARTAN 320MG TAB Qty: 90 for 90 days ACTI VE (S) Issu:10-09-21 Sig: TAKE ONE TABLET BY MOUTH ONCE Refills: 1 L ast:12-25-21 DAILY *THIS IS A HIGHER DOSE* Expr:10-10-22 15) ZAFIRLUKAST 20MG TAB Qty: 180 for 90 [...] OTHER CAP/TAB Sig: NEXIUM 40MG ACTIVE DAILY 19 Total Medications Allergies: LISINOPRIL, FELODIPINE Social Hx: lives alone, juan jose pendent, still drives. Dose not smoke, driks 1 drink a week. 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 History: PERIOD OF SERVICE - [employer] FROM Nov TO May COMBAT SERVICE INDICATED: No VITAL SIGNS TODAY Blood Pressure: 151/66 (11/24/2021 09:28) Pain: 8 (11/24/2021 09:27) Patient Height: 71 in [180.3 cm] (07/16/2019 09: 28) Patient Weight: 240.2 lb [108.95 kg] (11/24/2021 09:27) Pulse: 71 (11/24/2021 09:27) Respiration: 20 (11/24/2021 09:27) Temperature: 97.9 F [36.6 C] (11/24/2021 09:27) Review of Systems: CARDIOVASCULAR: No chest pain, no palpitations RESPIRATORY: No SOB, no cough or wheezing GASTROINTESTINAL: No change in stool, no melena or hematochezia. EXAMINATION GENERAL: Alert & oriented, pleasant and cooperat steff, in NAD HEENT: MMM, oropharynx clear NECK: Supple, no JVD, no LAD HEART: RRR, no murmurs, distant heart sounds. LUNGS: Air exchange is mildly decreased, no prudencio ble wheezes ABDOMEN: Obese, soft, NT/ND, + BS EXTREMITIES:PPP, 2+ bilateral lower extremity ed kavita, wearing compression stockings. NEUROLOGIC: No focal neurological deficits. AMBULATION: Uses cane to walk. DATA REVIEW CHEM 7 TREND Collection DT Spec GLUCOSE BUN CREATIN Sodium K+ /Pot CL CO2 11/08/2021 07:32 SERUM 146 H 32 H 1.28 137 5.0 1 05 24 05/31/2021 07:19 SERUM 160 H 33 H 1.46 H 137 5.1 H 105 21 08/08/2020 09:15 SERUM 162 H 31 H 1.30 4.5 07/09/2019 07:25 SERUM 175 H 23 1.28 137 4.6 106 23 01/19/2019 09:51 24 HR 122c CBC TREND Collection DT Spec WBC RBC HGB HCT MCV MCH PLT 11/08/2021 07:32 BLOOD 11.68 H 3.63 L 10.2 L 32. 5 L 89.5 28.1 396 H 05/31/2021 07:19 BLOOD 10.39 3.73 L 11.7 L 35.6 L 95.4 31.4 397 H 08/08/2020 09:14 BLOOD 8.99 3.82 L 11.9 L 36.9 L 96.6 31.2 308 07/09/2019 07:25 BLOOD 9.32 4.20 L 13.1 39.8 94. 8 31.2 362 H 01/06/2019 07:33 BLOOD 9.59 4.24 13.1 39.5 93.2 30.9 346 HEMOGLOBIN A1C TREND Collection DT Spec HGBA1c 11/08/2021 07:32 BLOOD 6.9 H 05/31/2021 07:19 BLOOD 6.5 H 08/08/2020 09:15 BLOOD 6.2 H 07/09/2019 07:25 BLOOD 6.8 H 01/06/2019 07:33 BLOOD 6.9 H LIPID PANEL TREND Collection DT Spec CHOL HDL CHO/HDL LDL-c TRIG 11/08/2021 07:32 SERUM 132 34 L 3.9 82 78 05/31/2021 07:19 SERUM 144 36 L 4.0 89 93 08/08/2020 09:15 SERUM 135 32 L 4.2 80 114 07/09/2019 07:25 SERUM 171 34 L 5.0 109 141 01/06/2019 07:33 SERUM 152 36 L 4.2 90 130 LIVER PANEL TREND Collection DT Spec AST ALT T BILI ALK ALVINA T. PRO T ALBUMIN 11/08/2021 07:32 SERUM 12 13 0.4 96 6.6 3.0 L 05/31/2021 07:19 SERUM 13 15 0.4 78 6.4 3.4 L 08/08/2020 09:15 SERUM 13 14 0.4 07/09/2019 07:25 SERUM 15 16 0.4 72 6.3 3.4 L 01/06/2019 07:33 SERUM 19 18 0.4 68 6.4 3.3 L PSA TREND Collection DT Spec PSA 04/03/2011 07:48 SERUM 0.62 07/19/2010 08:01 SERUM 0.54 11/11/2006 08:15 SERUM 0.70 10/16/2005 09:59 SERUM 0.95 09/12/2004 09:16 SERUM 0.4 Collection DT Spec TSH 05/31/2021 07:19 SERUM 1.76 ANEMIA PANEL TREND Collection DT Spec B12 HCT IRON TIBC 11/08/2021 07:32 BLOOD 32.5 L 05/31/2021 07:19 BLOOD 35.6 L 05/31/2021 07:19 SERUM 256 08/08/2020 09:14 SERUM 100 318 08/08/2020 09:14 BLOOD 36.9 L ASSESSMENT/PLAN: Active problems - Computerized Problem List is t he source for the following: #. Tachycardia/diastolic dysfunction/chest pain, patient was admitted at [facility] in May 2021 for chest pain , was admitted on the ACS protocol, troponin was noted to be elevated at 1 47, with a repeat troponin trending down to 110, patient was initially ofelia lakhwinder with therapeutic Lovenox, continued aspirin and statins, and Cardizem was switched to beta-blockers, patient underwent echo, WMA could not be ruled o ut, EF of 60 to 65%. He was seen by hand iii cutter, underwent nuclear stress t est, reportedly equivocal for minimal inferior ischemia. Patient was recommend ed to follow-up with a hand iii cutter as an outpatien t. However per patient he has not seen hand iii cutter reporting his primary care provider Dr. Sheets to ld him his cardiac work-up at [facility] did not war rant cardiology follow-up? He denies any recurrence of chest pains, has been doing fairly well from cardiac standpoint. Of note: According to the [facility] al discharge documentation patient was started on beta-blockers during his hospitalizat ion, and Cardizem was discontinued. According to the med reconciliatio n on this visit patient is noted that he takes both bet a-blockers and Cardizem. Patient reports he was put back on Cardizem again by his outside PC P. Patient was advised to confirm this with his PCP, if he should be on both Ca rdizem and beta-blockers. According to his last discharge summary from [facility] in May 2021 Cardizem was recommended to be discontinu ed. Patient will discuss this with his outside PCP. #. Anemia, patient is noted to have gradually dr opping his H&H, currently at 10.2/32.5, last H&H was 11.7 /35.6 in May 2021, prior to that was normal at 13.1/39.8 in July 2019. Patient denies any me jack or hematochezia. He has history of colonic polyps, last colonosc opy in 2009 had shown diverticuli, but no polyps. He has decided to stop surveilance. U nclear etiology of worsening anemia, B12 level was 256 in May 2021. MCV is within normal limits. Platelets are 396, and mild leukopenia with WBC of 3.63. We will check iron panel, will check B12 levels as well. Patient wa s given FIT test kit, if any heme detected in the stool, patient can be refer red for repeat colonoscopy. #. DM type II- Last hemoglobin A1c was 6 .9 on November 08, 2021, slightly increased when compared to 6.5 in May 2021. Fasting g lucose level was 146 on serum chemistries. He does not rou tinely exercise due to his knee problem, but patient reports he has a pool, he has been swimming, and walking in the pool. He has lost about 12 pounds over the last coupl e of years, he was 252 pounds in 2019, currently weighs 140 pounds. He does not follow certain diet, reports eating a lot of pasta and potatoes. He does not eat much due to bills. Abstaining from carbohydrates, and adhering to healthy diet with increased vegetable intake was strongly encouraged and emph asized with the patient. 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 Continues with metformin 500 mg twice a day. #. Asthma- Respiratory status is stable. Continu es with home inhalers. #. Hyperlipidemia- Total cholesterol 132 , HDL 34, and LDL of 82 on recent labs from November 08, 2021.continues with simvastatin 20 milligrams p.o. daily. #. GERD- reports no acute GERD symptoms. Continu es with pantoprazole. #. Hypertension- His blood pressure is b eing somewhat poorly controlled in the past, he is on maximal dose of ARB with valsarta n 320 mg p.o. daily and diltiazem 240 mg daily. BP today 151/66. Patient attributes elevated blood pressure to this for sleep last night. H as been getting up to urinate at night as he is on Lasix. He continues furosemide 20 mg daily as well. He does not check PB at home. Patient was advised to monitor his blood pressure regularly at home. #. 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 24-hour urine with quantitative urine protein about 2-1/2 to 3.5 g. He has creatinine of 1.2-1.3 at baseline, although last value was higher than baseline at 1.46 in May. Feeling well, appears improved at 1.48 on recent labs from November 08, 2021. Patient h as been followed by civil engineer's aide, serologic work-up has come back giovanni whiteside. His blood pressure is being somewhat poorly contro lled in the past, he is on maximal dose of ARB, and diltiazem 240 mg daily. He is allergic to CAROL in hibitors. He also has been experiencing nocturia, likel y due to LUTS due to BPH, for which he has been put on doxazosin. #. Skin lesions- two 1 cm cr usted shallow ulcers at the buttock crease. Had not responded to antibiotics in the past, patient ayala s been referred the stripper opaquer, apparently et iology likely infectious versus fungal, patient has been on mupirocin and clotrimazole for number of months. Lesions have been improving slowly. He continues to use topical oi ntments. #. Macular degeneration- Followed regularly by o phthalmologist, Dr. Carbajal. Vision is currently stable. He has appointments there every 4 to 6 weeks for eye injections. We did not discuss this today. #. 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 No recurrence or suggestive neurologic symptoms since. We did not discuss today. #. Knee pain due to OA, s/p L-TKR- Has been having paon both kees, replaced left knee and in his [place]al[place] right knee. Currently rep orts pain in the left knee is greater than the right. No longer benefo rts form intra-articular injections in the right knee. Tramadol has been helpful. Given the problems he has had with the left TKR he does not wan t to consider surgery for the right. He floowes with orthopedists. Patient has not considered revisio n L-TKR due to his age. Relevant Labs and Diagnostic Tests reviewed with the patient. LAB ORDERS for NEXT Appt: Labs needed: Yes Fasting: Yes Request from NON VA: No PROVIDER ACTIONS: FOLLOW UP: ========= RTC in 6 Months, sooner PRN No barriers; Patient understands and agrees to c urrent treatment plan. If patient has any questions, concerns, or singh es in current health status he/she will call or come in to the VA. TIME SPENT: Total Time: 55 minutes spent in patient care and education. This note was created by using Ligandal speech rec ognition device, which may result in misspelling or dictation errors. Medication Reconciliation: Outpatient: Has the patient been taking medications as docu mented in the EMLR? No: Discrepencies were identified. See below. Of note: According to the [facility] al discharge documentation patient was started on beta-blockers during his hospitalizat ion, and Cardizem was discontinued. According to the med reconciliatio n on this visit patient is noted that he takes both bet a-blockers and Cardizem. Patient reports he was put back on Cardizem again by his outside PC P. Patient was advised to confirm this with his PCP, if he should be on both Ca rdizem and beta-blockers. According to his last discharge summary from [facility] in May 2021 Cardizem was recommended to be discontinu ed. Patient will discuss this with his outside PCP. Essential Medication List for Review used to co mplete this medication reconciliation. INCLUDED IN THIS LIST: Alphabetical list of act steff outpatient prescriptions dispensed from this [facility] (local) an d dispensed from another [place] or Do[place] facility (remote) as well as inpatien t orders (local, pending and active), local clinic medications, locally documented non-VA medications, and local prescriptions that have or been discontinued in the past 90 days. - Discrepancies were identified, addressed, and discussed with the patient/caregiver at this encounter. - All changes in medications, including all non -VA/Herbal/OTC medications were entered into CPRS. - If there were any medications the patient kiara uld no longer take, they were discontinued. - The patient/caregiver was instructed to updat e this list, discard old lists, and take this list to the next appointme nt, whether with a VA or non-VA provider. /es/ ELEUTERIO ORONA MD PHYSICIAN Signed: 11/24/2021 15:53
--- OUTSIDE RECORDS SUMMARY | 2022-04-21 09:20 | XMS_ITS | Encounter Summary ---
:1935 Author Organization Department [facility] Address [address] [place] [address] Support Name Relationship Address Phone BRIAN CHARLES Unavailable [address] [place] [address] BRIAN CHARLES Unavailable [address] [place] [address] BRIAN CHARLES Unavailable [phone] [place] [address] Insurance Providers: All historical and current Section [...] Number Stinson ANTHEM MEDIGAP MEDEX Dec 29, [id number] [phone] Anamika WALSH PATIENT BCBS OF CT PLAN C 2001 3 SPEEDY ANTHEM MEDICARE MEDEX Dec 29, [id number] [phone] Anamika WALSH PATIENT BCBS OF CT SUPPLEMEN BRON 2001 3 SPEEDY [place] E BCBS [place] MED[place] MEDEX Dec 29, [id number] [phone] Anamika GONZALES PATIENT SUPPLEMEN BRONZ 2001 4 SPEEDY [place] E BCBS [place] MED[place] MEDEX Dec 29, [id number] [phone] Anamika GONZALES PATIENT SUPPLEMEN BRONZ 2001 4 SPEEDY HER[place] E BCBS OF MEDICARE PSUED May 31, [id number] [phone] Anamika GONZALES PATIENT MASS SUPPLEMEN O 1999 3 SPEEDY HERMINIA MEDEX BRONZ E BLUE CROSS MEDIGAP MEDEX May 31 [id number] [phone] WHEE LER,R PATIENT BLUE [facility] [place] 1999 05 [id number] 4 SPEEDY SHIELD [facility] MEDICARE MEDICARE PART October 29, PART B [id number] [phone] WHEELE R,R PATIENT (WNR) (M) B 2001 RC08 2 SPEEDY MEDICARE MEDICARE PART October 29, PART B [id number] [phone] WHEELE R,R PATIENT (WNR) (M) B 2001 85A 00 SPEEDY MEDICARE MEDICARE PART October 29, PART B [id number] [phone] WHEELE R,R PATIENT (WNR) (M) B 2001 RC08 00 SPEEDY MEDICARE MEDICARE PART October 29, PART B [id number] [phone] WHEELE R,R PATIENT (WNR) (M) B 2001 85A 00 SPEEDY MEDICARE MEDICARE PART October 29, PART B [id number] [phone] WHEELE R,R PATIENT (WNR) (M) B 2001 RC08 00 SPEEDY MEDICARE MEDICARE PART May 31, PART A [id number] [phone] WHEELE R,R PATIENT (WNR) (M) A 1999 RC08 2 SPEEDY MEDICARE MEDICARE PART May 31, PART A [id number] [phone] WHEELE R,R PATIENT (WNR) (M) A 1999 85A 00 SPEEDY MEDICARE MEDICARE PART May 31, PART A [id number] [phone] WHEELE R,R PATIENT (WNR) (M) A 1999 RC08 00 SPEEDY MEDICARE MEDICARE PART May 31, PART A [id number] [phone] WHEELE R,R PATIENT (WNR) (M) A 1999 85A 00 SPEEDY MEDICARE MEDICARE PART May 31, PART A [id number] [phone] WHEELE R,R PATIENT (WNR) (M) A 1999 RC08 00 SPEEDY Selected Encounter This section includes the information on record at [place] for the Encounter. Date/Time Encounter Type Encounter Description Reason Provider Source Jul 04, 2021 12:00 Outpatient Encounter EVENT (HISTORICAL) AM IHE Encounter Template Text not used by VA Plan of Treatment: Future Appointments (+ 6 months) and Future Tests (+/- 45 days) The Plan of Treatment section includes future care activities for the patient from all [place] [facility]. This section includes future appointments and future orders which are active, pending orscheduled.Future Appointments This section includes appointments that were scheduled to occur 6 months from the date of the Encounter, up to a maximum of 20 appointments. The data comes from all [place] treatment facilities. Appointment Date/Time Appointment Type Appointment Facili ty Name Oct 26, 2021 01:30 PM AMBULATORY - [facility]INE [facility] October 31, 2021 01:30 PM AMBULATORY MEDICINE [facility] November 24, 2021 09:00 AM AMBULATORY MEDICINE [place] Social History: Smoking Status (Most current) and Tobacco Use (All prior to encounter date) This section includes the most current, and the historical, smoking and tobacco-related health factors from the [place] facility where the Encounter took place.Current Smoking Status This section includes the most current smoking, or tobacco-related health factor, from the [place] facility where the Encounter took place. Date/Time Current Smoking Status Comment Facility Jul 26, 2020 10:43 AM [place]-TOBACCO FORMER USER [facility] Tobacco Use History This section includes a history of the smoking, or tobacco- related health factors, that were collected on or before the date of the Encounter. The data comes from the [place] facility where the Encounter took place. Date/Time Smoking Status/Tobacco Use Comment Facil it Jul 26, 2020 10:43 AM [place]-TOBACCO QUIT 15 YRS OR [facility] Advance Directives: All historical and current Section Date Range: From patient's date of to the date document was created. This section includes ALL of a patient's completed or amended [place] Advance and Rescinded Directives. The entries below indicate that a directive exists for the patient, but an actual copy is not included with this document. The data comes from all [place] facilities. Date Advance Directives Provider Source May 20, 2006 ADVANCE DIRECTIVE BAYLEE SHUKLA [place] Encounter Notes: All associated encounter notes This section contains the clinical notes associated to the Encounter. Date/Time Encounter Note(s) Provider Source Jul 04, 2021 12:00 AM NONVA NOTE: [facility] LOCAL TITLE: NON-VA OUTPATIENT NOTES [place] [facility] STANDARD TITLE: NONVA NOTE DATE OF NOTE: JUL 04, 2021 ENTRY DATE: DEC 14 022@07:37:15 AUTHOR: RAZA DALE EXP COSIGNER: URGENCY: STATUS: COMPLETED VistA Imaging - Scanned Document SCANNED DOCUMENT SIGNATURE NOT REQUIRED Electronically Filed: 12/14/2021 by: RAZA DALE
--- OUTSIDE RECORDS SUMMARY | 2022-04-21 09:20 | XMS_ITS ---
:1935 Author Organization Department [facility] Address [address] [place] [address] Support Name Relationship Address Phone BRIAN CHARLES Unavailable [address] [place] [address] BRIAN CHARLES Unavailable [address] [place] [address] BRIAN CHARLES Unavailable [phone] [place] [address] Insurance Providers: All historical and current Section [...] Number Stinson ANTHEM MEDIGAP MEDEX Dec 29, [id number] [phone] Anamika WALSH PATIENT BCBS OF CT PLAN C 2001 3 SPEEDY ANTH MEDICARE MEDEX Dec 29, [id number] [phone] Anamika WALSH PATIENT BCBS OF CT SUPPLEMEN BRONZ 2001 3 SPEEDY HERMINIA E BCBS OR MEDICARE MEDEX Dec 29, [id number] [phone] Anamika GONZALES PATIENT SUPPLEMEN BRONZ 2001 4 SPEEDY [place] E BCBS OR MEDICARE MEDEX Dec 29, [id number] [phone] Anamika GONZALES PATIENT SUPPLEMEN BRONZ 2001 4 SPEEDY HERMIN[place] E BCBS OF MEDICARE PSUED May 31, [id number] [phone] Anamika GONZALES PATIENT MASS SUPPLEMEN O 1999 3 SPEEDY HERMINIA MEDEX BRONZ E BLUE CROSS MEDIGAP MEDEX May 31, [id number] [phone] WHEE LER,R PATIENT BLUE [facility] [place] 1999 05 [id number] OBERT SHIELD OF E [place] MEDICARE MEDICARE PART October 29, PART B [id number] [phone] WHEELE R,R PATIENT (WNR) (M) B 2001 RC08 2 [facility] MEDICARE MEDICARE PART October 29, PART B [id number] [phone] WHEELE R,R PATIENT (WNR) (M) B 2001 85A 00 SPEEDY MEDICARE MEDICARE PART October 29, PART B [id number] [phone] WHEELE R,R PATIENT (WNR) (M) B 2001 RC08 00 SPEEDY MEDICARE MEDICARE PART October 29, PART B [id number] [phone] WHEELE R,R PATIENT (WNR) (M) B 2001 85A 00 SPEEDY MEDICARE MEDICARE PART October 29, PART B [id number] [phone] WHEELE R,R PATIENT (WNR) (M) B 2001 RC08 00 SPEEDY MEDICARE MEDICARE PART May 31, PART A [id number] [phone] WHEELE R,R PATIENT (WNR) (M) A 1999 RC08 2 SPEEDY MEDICARE MEDICARE PART May 31, PART A [id number] [phone] WHEELE R,R PATIENT (WNR) (M) A 1999 85A 00 SPEEDY MEDICARE MEDICARE PART May 31, PART A [id number] [phone] WHEELE R,R PATIENT (WNR) (M) A 1999 RC08 00 SPEEDY MEDICARE MEDICARE PART May 31, PART A [id number] [phone] WHEELE R,R PATIENT (WNR) (M) A 1999 85A 00 SPEEDY MEDICARE MEDICARE PART May 31, PART A [id number] [phone] WHEELE R,R PATIENT (WNR) (M) A 1999 RC SPEEDY Selected Encounter This section includes the information on record at [place] for the Encounter. Date/Time Encounter Type Encounter Description Reason Provider Source Feb 23, 2022 10:34 Outpatient Encounter ADMIN PAT ACTIVTIES AM (ROM) [facility] Encounter Template Text not used by VA Plan of Treatment: Future Appointments (+ 6 months) and Future Tests (+/- 45 days) The Plan of Treatment section includes future care activities for the patient from all [place] [facility]. This section includes future appointments and future orders which are active, pending orscheduled.Future Appointments This section includes appointments that were scheduled to occur 6 months from the date of the Encounter, up to a maximum of 20 appointments. The data comes from all [place] treatment [facility]. Appointment Date/Time Appointment Type Appointment Facili ty Name Mar 14, 2022 08:30 AM [facility] [place] Mar 14, 2022 09:00 AM [facility] Mar 21, 2022 10:30 AM [facility] Mar 27, 2022 09:30 AM [facility] Apr 16, 2022 09:30 AM [facility] May 21, 2022 01:00 PM [facility] Social History: Smoking Status (Most current) and [...] 26, 2020 10:43 AM [place]-TOBACCO FORMER USER [facility] Tobacco Use History This section includes a history of the smoking, or tobacco- related health factors, that were collected on or before the date of the Encounter. The data comes from the [place] facility where the Encounter took place. Date/Time Smoking Status/Tobacco Use Comment [facility] Jul 26, 2020 10:43 AM [place]-TOBACCO QUIT 15 YRS OR [facility] Advance Directives: All historical and current [...] Source May 20, 2006 ADVANCE DIRECTIVE SHUKLABAYLEE [place] Encounter Notes: All associated encounter notes This section contains the clinical notes associated to the Encounter. Date/Time Encounter Note(s) Provider Source Feb 23, 2022 10:34 ADMINISTRATIVE NOTE: MAYKEL ARREOLA CN TRL WSTRN AM [facility] TITLE: CCC: SCHEDULING ADMINISTRATION [place] [facility] STANDARD TITLE: ADMINISTRATIVE NOTE DATE OF NOTE: FEB 23, 2022@10:34:14 ENTRY DATE: FEB 23, 2022@10:37:21 AUTHOR: MAYKEL ARREOLA EXP COSIGNER: URGENCY: STATUS: COMPLETED Type of call: PHARMACY. PCMM Provider Info: [facility] ([id number]) PACT: SO PACT 8 (Focus: [facility]om[facility]) Designated Pcp: SANDEEP KAPADIA Assistant Corporation Counsel: CINDY BAER Clinical Associate: KATHRYN SALDAÑA PHON E:[phone] Technician Chemical Cleaning: ADAM MATA PACT Clinical Pharmacist: DONNY JACK Clinical POC: Clinical Associate KATHRYN MCKEON PHONE:[phone] Administrative POC: Technician Chemical Cleaning ADAM MATA *PATIENT called in for MART WALSH ([id number]) . The following identifiers were used to verify th is patient: DOB. PRASADN. Contact Caller Response: ADM CALL RESOLVED Caller Area: [facility] Patient called requesting re newal of the following medication(s) and would like to have it (mailed or picked up?) Comments: IS REQUESTING RENEWAL AND MAILING OF THE BELOW MEDICATION TRAMADOL HCL TAB 50MG TAKE ONE TABLET BY MOUTH EVERY 12 HOURS NEEDE D Author: MAYKEL ARREOLA Evaluation/Management Code: HC PRO PHONE CALL [phone]- [phone] MIN ([phone]). Starting at: 02/23/2022 @ 10:34:14 AM Ending at: 02/23/2022 @ 10:37:04 AM Length: 2 minutes. Chief Complaint: Not applicable to call. Class Code: Other specified counseling. /selam/ MAYKEL ARREOLA VISN1 CCC AMSA Signed: 02/23/2022 10:37 Receipt Acknowledged By: * AWAITING SIGNATURE * SANDEEP KAPADIA * AWAITING SIGNATURE * CINDY BAER
--- OUTSIDE RECORDS SUMMARY | 2022-04-21 09:20 | XMS_ITS | Encounter Summary ---
:1935 Author Organization Department [facility] Address [address] [place] [id number] Support Name Relationship Address Phone BRIAN CHARLES Unavailable [address] [place] [address] BRIAN CHARLES Unavailable [address] [place] [address] BRIAN CHARLES Unavailable [address] [phone] [place] [address] Insurance Providers: All historical and current Section [...] Number Stinson ANTHEM MEDIGAP MEDEX Dec 29, [id number] [phone] Anamika WALSH PATIENT BCBS OF CT PLAN C 2001 3 SPEEDY ANTHEM MEDICARE MEDEX Dec 29, [id number] [phone] Anamika WALSH PATIENT BCBS OF CT SUPPLEMEN BRON 2001 3 [place]BS [place] MED[place] MED[place] Dec 29, [id number] [phone] Anamika GONZALES PATIENT SUPPLEMEN BRONZ 2001 4 [place] Dec 29, [id number] [phone] Anamika GONZALES PATIENT SUPPLEMEN BRONZ 2001 4 SPEEDY [place] E BCBS OF MEDICARE PSUED May 31, [id number] [phone] Anamika GONZALES PATIENT MASS SUPPLEMEN O 1999 3 SPEEDY [place] MEDEX BRONZ E BLUE CROSS MEDIGAP MEDEX May 31 [id number] [phone] WHEE LER,R PATIENT [facility]UE [facility] [place] EAST 1999 05 [id number] 4 SPEEDY SHIELD [facility] MEDICARE MEDICARE PART October 29, PART B [id number] [phone] WHEELE R,R PATIENT (WNR) (M) B 2001 RC08 2 SPEEDY MEDICARE MEDICARE PART October 29, PART B [id number] [phone] WHEELE R,R PATIENT (WNR) (M) B 2001 85A 00 SPEEDY MEDICARE MEDICARE PART October 29, PART B [id number] WHEELE R,R PATIENT (WNR) (M) B 2001 RC08 00 [place] MEDICARE MEDICARE PART October 29, PART B [id number] [phone] WHEELE R,R PATIENT (WNR) (M) B 2001 85A 00 SPE[place] MEDICARE MEDICARE PART October 29, PART B [id number] [phone] WHEELE R,R PATIENT (WNR) (M) B 2001 RC08 00 SPE[place]Y MEDICARE MEDICARE PART May 31, PART A [id number] WHEELE R,R PATIENT (WNR) (M) A 1999 RC08 2 SPE[place]Y MEDICARE MEDICARE PART May 31, PART A [id number] [id number] WHEELE R,R PATIENT (WNR) (M) A 1999 85A 00 SPE[place]Y MEDICARE MEDICARE PART May 31, PART A [id number] [phone] WHEELE R,R PATIENT (WNR) (M) A 1999 RC08 00 [place] MEDICARE MEDICARE PART May 31, PART A [id number] [id number] WHEELE R,R PATIENT (WNR) (M) A 1999 85A 00 SPEEDY MEDICARE MEDICARE PART May 31, PART A [id number] [phone] WHEELE R,R PATIENT (WNR) (M) A 1999 RC08 00 SPEEDY Selected Encounter This section includes the information on record at [place] for the Encounter. Date/Time Encounter Type Encounter Description Reason Provider Source Oct 25, 2021 12:00 Outpatient Encounter EVENT (HISTORICAL) AM IHE Encounter Template Text not used by [facility] Plan of Treatment: Future Appointments (+ 6 months) and Future Tests (+/- 45 days) The Plan of Treatment section includes future care activities for the patient from all [place] [facility]. This section includes future appointments and future orders which are active, pending orscheduled.Future Appointments This section includes appointments that were scheduled to occur 6 months from the date of the Encounter, up to a maximum of 20 appointments. The data comes from all [place] treatment facilities. Appointment Date/Time Appointment Type Appointment Facili ty Name Oct 26, 2021 01:30 PM AMBULATORY MEDICINE [facility] October 31, 2021 01:30 PM AMBULATORY [facility] November 24, 2021 09:00 AM [facility] Mar 14, 2022 08:30 AM AMBULATORY [facility] Mar 14, 2022 09:00 AM [facility] Mar 21, 2022 10:30 AM [facility] Mar 27, 2022 09:30 AM [facility] Apr 16, 2022 09:30 AM [facility] MEDICINE [facility] Lab Results: +/- 30 days of the encounter This section includes the Chemistry and Hematology Lab Results on record with [place] for the patient. Radiology Reports and Pathology Reports are provided separately, in subsequent sections.Lab Results This section contains the Chemistry/Hematology Results that were resulted 30 days before or 30 daysafter the date of the Encounter. Date/Time Source Result Type Result - Unit Interpretation Reference Range Comment November 08, 2021 07:32 AM [facility] LIPID PANEL FASTING Speci men Type: SERUM No comment enter ed. Ordering Provid er: ELEUTERIO ORONA Report Released Date/Time: Oct 17, 2021 04:03 PM Reporting Lab: [facility] [address] [facility] [address] Performing Lab: [address] [address] CHOLESTEROL 132 <7-199 TRIGLYCERIDE 78 0-150 LDL calculated 82 0-129 CHOL/HDL 3.9 HDL CHOLESTEROL 34 L 40-60 November 08, 2021 07:32 AM [facility] HEMOGLOBIN A1C PANEL Spec imen Type: BLOOD [...] Oct 17, 2021 04:03 PM Reporting Lab: [facility] [address] [facility] [address] Performing Lab: [facility] [address] [facility] [address] HEMOGLOBIN A1C 6.9 H 4.0-5.6 November 08, 2021 07:32 AM [facility] LIVER FUNCTION Specimen Type: SERUM No comment enter ed. Ordering Provid er: ELEUTERIO ORONA Report Released Date/Time: Oct 17, 2021 04:03 PM Reporting Lab: [facility] Business [facility] [address] [facility] [address] Performing Lab: [facility] [address] [facility] [address] PROTEIN,TOTAL 6.6 6.0-8.3 ALBUMIN 3.0 L 3.5-5.0 ALKALINE PHOSPHATASE 96 40-150 AST 12 5-34 ALT 13 <6-55 BILIRUBIN, TOTAL 0.4 0.2-1.2 November 08, 2021 07:32 [facility] BASIC METABOLIC PANEL Specim en Type: SERUM AM (fasting) No comment enter ed. Ordering Provid er: ELEUTERIO ORONA Report Released Date/Time: Oct 17, 2021 04:03 PM Reporting Lab: [facility]ionATOK[facility] ATOKABnook[facility] [address] [facility] [address] Performing Lab: [facility] [address] [facility] [address] UREA NITROGEN 32 H 7-25 GLUCOSE 146 H 65-100 SODIUM 137 135-145 POTASSIUM 5.0 3.5-5.0 CHLORIDE 105 100-110 CO2 24 20-30 CREATININE, Serum 1.28 0.50-1.40 eGFR(CKD-EPI 2020) 54 L >60 November 08, 2021 07:32 AM [facility] CBC AND DIFF (AUTO) Speci men Type: BLOOD Comment: MCV Ve rified by repeat analysis. Ordering Provid er: ELEUTERIO ORONA Report Released Date/Time: Oct 17, 2021 04:03 PM Reporting Lab: [facility] [address] [facility] [address] Performing Lab: [facility] [address] [facility] [address] WBC 11.68 H 4.50-11.00 RBC 3.63 L 4.23-5.66 HGB 10.2 L 12.8-17 HCT 32.5 L 39.2-50.4 MCV 89.5 82-99 MCHC 31.4 30.8-35.1 PLT 396 H 140-360 RDW-CV 16.2 H 12.0-16.0 Darke, Abs 1.06 0.30-1.10 MCH 28.1 26.2-32.6 Neut % 57.0 Lymph % 26.4 Darke % 9.1 Eos % 6.3 Baso % [...] smoking and tobacco-related health factors from the [facility] where the Encounter took place.Current Smoking Status This section includes the most current smoking, or tobacco-related health factor, from the [place] facility where the Encounter took place. Date/Time Current Smoking Status Comment Facility Jul 26, 2020 10:43 AM [place]-TOBACCO FORMER USER [facility] Tobacco Use History This section includes a history of the smoking, or tobacco- related health factors, that were collected on or before the date of the Encounter. The data comes from the [place] facility where the Encounter took place. Date/Time Smoking Status/Tobacco Use Comment [facility] Jul 26, 2020 10:43 AM VA-TOBACCO QUIT 15 YRS [facility] Advance Directives: All historical and current Section Date Range: From patient's date of to the date document was created. This section includes ALL of a patient's completed or amended [place] Advance and Rescinded Directives. The entries below indicate that a directive exists for the patient, but an actual copy is not included with this document. The data comes from all [place] facilities. Date Advance Directives Provider Source May 20, 2006 ADVANCE DIRECTIVE BAYLEE SHUKLA [facility] Encounter Notes: All associated encounter notes This section contains the clinical notes associated to the Encounter. Date/Time Encounter Note(s) Provider Source Oct 25, 2021 12:00 AM NONVA NOTE: [place] CNTRL W STRN LOCAL TITLE: NON-VA OUTPATIENT NOTES [facility] STANDARD TITLE: NONVA NOTE DATE OF NOTE: OCT 25, 2021 ENTRY DATE: DEC 15 022@09:24:24 AUTHOR: LEONEL CRISTINA COSIGNER: URGENCY: STATUS: COMPLETED VistA Imaging - Scanned Document SCANNED DOCUMENT SIGNATURE NOT REQUIRED Electronically Filed: 12/15/2021 by: SANDEEP CRISTINA Direct Sales Professional
--- OUTSIDE RECORDS SUMMARY | 2022-04-21 09:20 | XMS_ITS ---
:1935 Author Organization [facility] Address [address] [place] [id number] Support Name Relationship Address Phone BRIAN CHARLES Unavailable [address] [place] [address] BRIAN CHARLES Unavailable [address] [place] [address] BRIAN CHARLES Unavailable [address] [phone] [place] [address] Insurance Providers: All historical and current Section [...] Number Stinson ANTHEM MEDIGAP MEDEX Dec 29, [id number] [phone] Anamika WALSH PATIENT BCBS OF CT PLAN C 2001 3 SPEEDY ANTHEM MEDICARE MEDEX Dec 29, [id number] [phone] Anamika WALSH PATIENT BCBS OF CT SUPPLEMEN BRON 2001 3 SPEED[place] E BCBS [place] MEDICARE MEDEX Dec 29, [id number] [phone] Anamika GONZALES PATIENT SUPPLEMEN BRONZ 2001 4 SPE[place] MED[place] Dec 29, [id number] [phone] Anamika GONZALES PATIENT SUPPLEMEN BRONZ 2001 4 SPEEDY [place] E BCBS OF MEDICARE PSUED May 31, [id number] [phone] Anamika GONZALES PATIENT MASS SUPPLEMEN O 1999 3 SPEEDY [place] MEDEX BRONZ E BLUE CROSS MEDIGAP MEDEX May [id number] [phone] WHEE LER,R PATIENT [facility] Des[place] MESA 1999 05 [id number] 4 [facility] MEDICARE MEDICARE PART October 29, PART B [id number] [phone] WHEELE R,R PATIENT (WNR) (M) B 2001 85A 00 SPEEDY MEDICARE MEDICARE PART October 29, PART B [id number] [phone] WHEELE R,R PATIENT (WNR) (M) B 2001 RC08 00 SPEEDY MEDICARE MEDICARE PART October 29, PART B [id number] [phone] WHEELE R,R PATIENT (WNR) (M) B 2001 RC08 2 SPEEDY MEDICARE MEDICARE PART October 29, PART B [id number] [phone] WHEELE R,R PATIENT (WNR) (M) B 2001 85A 00 SPEEDY MEDICARE MEDICARE PART October 29, PART B [id number] [phone] WHEELE R,R PATIENT (WNR) (M) B 2001 RC08 00 SPEEDY MEDICARE MEDICARE PART May 31, PART A [id number] [phone] WHEELE R,R PATIENT (WNR) (M) A 1999 85A 00 SPEEDY MEDICARE MEDICARE PART May 31, PART A [id number] [phone] WHEELE R,R PATIENT (WNR) (M) A 1999 RC08 00 SPEEDY MEDICARE MEDICARE PART May 31, PART A [id number] [phone] WHEELE R,R PATIENT (WNR) (M) A 1999 RC08 2 SPE[place]Y MEDICARE MEDICARE PART May 31, PART A [id number] [phone] WHEELE R,R PATIENT (WNR) (M) A 1999 85A 00 SPEEDY MEDICARE MEDICARE PART May 31, PART A [id number] [phone] WHEELE R,R PATIENT (WNR) (M) A 1999 RC08 00 SPEEDY Selected Encounter This section includes the information on record at [place] for the Encounter. Date/Time Encounter Type Encounter Description Reason Provider Source Oct 26, 2021 12:00 Outpatient Encounter COMMUNITY CARE AM CONSULT IHE Encounter Template Text not used by [facility] Plan of Treatment: Future Appointments (+ 6 months) and Future Tests (+/- 45 days) The Plan of Treatment section includes future care activities for the patient from all [place] [facility]. This section includes future appointments and future orders which are active, pending orscheduled.Future Appointments This section includes appointments that were scheduled to occur 6 months from the date of the Encounter, up to a maximum of 20 appointments. The data comes from all [place] treatment facilities. Appointment Date/Time Appointment Type Appointment Facili ty Name October 31, 2021 01:30 PM AMBULATORY MEDICINE [facility] November 24, 2021 09:00 AM [facility] Mar 14, 2022 08:30 AM AMBULATORY MEDICINE [facility] Mar 14, 2022 09:00 AM [facility] Mar 21, [facility]22 [facility] [facility] Mar 27, 2022 09:30 AM [facility] Apr 16, 2022 09:30 AM [facility] MEDICINE [facility] Lab Results: +/- 30 days of the encounter This section includes the Chemistry and Hematology Lab Results on record with [place] for the patient. Radiology Reports and Pathology Reports are provided separately, in subsequent sections.Lab Results This section contains the Chemistry/Hematology Results that were resulted 30 days before or 30 daysafter the date of the Encounter. Date/Time Source Result Type Result - Unit Interpretation Reference Range Comment November 08, 2021 07:32 AM [facility] HEMOGLOBIN A1C PANEL Spec imen Type: BLOOD [...] Oct 17, 2021 04:03 PM Reporting Lab: [address] [address] Performing Lab: [address] [address] HEMOGLOBIN A1C 6.9 H 4.0-5.6 November 08, 2021 07:32 AM [facility] LIPID PANEL FASTING Speci men Type: SERUM No comment enter ed. Ordering Provid er: ELEUTERIO ORONA Report Released Date/Time: Oct 17, 2021 04:03 PM Reporting Lab: [facility] [address] [facility] [address] Performing Lab: [facility] [address] [facility] [address] CHOLESTEROL 132 <7-199 TRIGLYCERIDE 78 0-150 LDL calculated 82 0-129 CHOL/HDL 3.9 HDL CHOLESTEROL 34 L 40-60 November 08, 2021 07:32 AM [facility] LIVER FUNCTION Specimen Type: SERUM No comment enter ed. Ordering Provid er: ELEUTERIO ORONA Report Released Date/Time: Oct 17, 2021 04:03 PM Reporting Lab: [facility] [address] [facility] [address] Performing Lab: [facility] [address] [facility] [address] PROTEIN,TOTAL 6.6 6.0-8.3 ALBUMIN 3.0 L 3.5-5.0 ALKALINE PHOSPHATASE 96 40-150 AST 12 5-34 ALT 13 <6-55 BILIRUBIN, TOTAL 0.4 0.2-1.2 November 08, 2021 07:32 [facility] BASIC METABOLIC PANEL Specim en Type: SERUM AM (fasting) No comment enter ed. Ordering Provid er: ELEUTERIO ORONA Report Released Date/Time: Oct 17, 2021 04:03 PM Reporting Lab: [facility] [address] [facility] [address] Performing Lab: [facility] [address] [facility] [address] UREA NITROGEN 32 H 7-25 GLUCOSE 146 [...] Oct 17, 2021 04:03 PM Reporting Lab: [facility] [address] [facility] [address] Performing Lab: [facility] [address] [facility] [address] WBC 11.68 H 4.50-11.00 RBC 3.63 L 4.23-5.66 HGB 10.2 L 12.8-17 HCT 32.5 L 39.2-50.4 MCV 89.5 82-99 MCHC 31.4 30.8-35.1 PLT 396 H 140-360 RDW-CV 16.2 H 12.0-16.0 [place], Abs 1.06 0.30-1.10 MCH 28.1 26.2-32.6 Neut % 57.0 Lymph % 26.4 [place] % 9.1 Eos % 6.3 Baso % [...] smoking and tobacco-related health factors from the [place] facility where the Encounter took place.Current Smoking Status This section includes the most current smoking, or tobacco-related health factor, from the [place] facility where the Encounter took place. Date/Time Current Smoking Status Comment Facility Jul 26, 2020 10:43 AM VA-TOBACCO FORMER USER [facility] Tobacco Use History This section includes a history of the smoking, or tobacco- related health factors, that were collected on or before the date of the Encounter. The data comes from the [place] facility where the Encounter took place. Date/Time Smoking Status/Tobacco Use Comment [facility] Jul 26, 2020 10:43 AM [place]-TOBACCO QUIT 15 YRS OR [facility] Advance Directives: All historical and current Section Date Range: From patient's date of to the date document was created. This section includes ALL of a patient's completed or amended [place] Advance and Rescinded Directives. The entries below indicate that a directive exists for the patient, but an actual copy is not included with this document. The data comes from all [place] facilities. Date Advance Directives Provider Source May 20, 2006 ADVANCE DIRECTIVE BAYLEE SHUKLA Encounter Notes: All associated encounter notes This section contains the clinical notes associated to the Encounter. Date/Time Encounter Note(s) Provider Source Oct 26, 2021 12:00 AM NONVA CONSULT: [place] CNTRL W STRN LOCAL TITLE: COMMUNITY CARE-CONSULT RESULT NOTE [facility] STANDARD TITLE: NONVA CONSULT DATE OF NOTE: OCT 26, 2021 ENTRY DATE: NOVEMBER 28 022@09:44:41 AUTHOR: PRATEEK HELM EXP COSIGNER: URGENCY: STATUS: COMPLETED VistA Imaging - Scanned Document SCANNED DOCUMENT SIGNATURE NOT REQUIRED Electronically Filed: 11/28/2021 by: PRATEEK HELM NATURAL GAS TECHNICIAN
--- OUTSIDE RECORDS SUMMARY | 2022-04-21 09:21 | XMS_ITS | Encounter Summary ---
:1935 Author Organization [facility] Address [address] [place] [address] Support Name Relationship Address Phone BRIAN CHARLES Unavailable [address] [place] [address] BRIAN CHARLES Unavailable [address] [place] [address] BRIAN CHARLES Unavailable [address] [phone] [place] [address] Insurance Providers: All historical and current Section [...] Number Stinson ANTHEM MEDIGAP MEDEX Dec 29, [id number] [phone] Anamika WALSH PATIENT BCBS OF CT PLAN C 2001 3 SPE[place]Y ANTHEM MEDICARE MEDEX Dec 29, [id number] [phone] Anamika WALSH PATIENT BCBS OF CT SUPPLEMEN BRON 2001 3 SPE[place] E BCBS [place] MEDICARE MEDEX Dec 29, [id number] [phone] Anamika GONZALES PATIENT SUPPLEMEN BRONZ [id number] 4 [place]BS [place] MEDIC[place] MED[place] Dec 29, [id number] [phone] Anamika GONZALES PATIENT SUPPLEMEN BRONZ 2001 4 SPEEDY [place] E BCBS OF MEDICARE PSUED May 31, [id number] [phone] Anamika GONZALES PATIENT [place] SUPPLEMEN O [id number] 3 SPEEDY [place] MEDEX BRONZ E BLUE CROSS MEDIGAP MEDEX May 31, [id number] [phone] WHEE LER,R PATIENT [facility] Desmond [facility] 1999 05 [id number] 4 OBERT SHIELD OF [place] MEDICARE MEDICARE PART October 29, PART B [id number] [id number] WHEELE R,R PATIENT (WNR) (M) B 2001 RC08 2 [place] MEDICARE MEDICARE PART October 29, PART B [id number] [phone] WHEELE R,R PATIENT (WNR) (M) B 2001 85A 00 SPE[place]Y MEDICARE MEDICARE PART October 29, PART B [id number] [id number] WHEELE R,R PATIENT (WNR) (M) B 2001 RC08 00 [place] MEDICARE MEDICARE PART October 29, PART B [id number] [phone] WHEELE R,R PATIENT (WNR) (M) B 2001 85A 00 [facility] MEDICARE MEDICARE PART October 29, PART B [id number] [id number] WHEELE R,R PATIENT (WNR) (M) B 2001 RC08 00 [facility] MEDICARE MEDICARE PART May 31, PART A [id number] [phone] WHEELE R,R PATIENT (WNR) (M) A 1999 RC08 2 SPE[place] MEDICARE MEDICARE PART May 31, PART A [id number] [id number] WHEELE R,R PATIENT (WNR) (M) A 1999 85A 00 [place] MEDICARE MEDICARE PART May 31, PART A [id number] [id number] WHEELE R,R PATIENT (WNR) (M) A 1999 RC08 00 [place]Y MEDICARE MEDICARE PART May 31, PART A [id number] [phone] WHEELE R,R PATIENT (WNR) (M) A 1999 85A 00 SPE[place]Y MEDICARE MEDICARE PART May 31, PART A [id number] [phone] WHEELE R,R PATIENT (WNR) (M) A 1999 RC08 SPEEDY Selected Encounter This section includes the information on record at [place] for the Encounter. Date/Time Encounter Type Encounter Reason Provider Source Description Mar 09, 2022 11:18 Outpatient TELEPHONE TRIAGE Raquel BENITES AM Encounter N IHE Encounter Template Text not used by [place] Plan of Treatment: Future Appointments (+ 6 months) and Future Tests (+/- 45 days) The Plan of Treatment section includes future care activities for the patient from all [place] [facility] This section includes future appointments and future orders which are active, pending orscheduled.Future Appointments This section includes appointments that were scheduled to occur 6 months from the date of the Encounter, up to a maximum of 20 appointments. The data comes from all [place] treatment facilities. Appointment Date/Time Appointment Type Appointment Facili ty Name Mar 14, 2022 08:30 AM AMBULATORY [facility] Mar 14, 2022 09:00 AM [facility] Mar 21, 2022 10:30 AM [facility] Mar 27, 2022 09:30 AM [facility] Apr 16, 2022 09:30 AM [facility] May 21, 2022 01:00 PM [facility] Social History: Smoking Status (Most current) and Tobacco Use (All prior to encounter date) This section includes the most current, and the historical, smoking and tobacco-related health factors from the [place] facility where the Encounter took place.Current Smoking Status This section includes the most current smoking, or tobacco-related health factor, from the [place] facility where the Encounter took place. Date/Time Current Smoking Status Comment Facility Jul 26, 2020 10:43 AM [place]-TOBACCO FORMER USER [facility] Tobacco Use History This section includes a history of the smoking, or tobacco- related health factors, that were collected on or before the date of the Encounter. The data comes from the [place] facility where the Encounter took place. Date/Time Smoking Status/Tobacco Use Comment [facility] Jul 26, 2020 10:43 AM [place]-TOBACCO QUIT 15 YRS OR [facility] Advance Directives: All historical and current Section Date Range: From patient's date of to the date document was created. This section includes ALL of a patient's completed or amended [place] Advance and Rescinded Directives. The entries below indicate that a directive exists for the patient, but an actual copy is not included with this document. The data comes from all [place] facilities. Date Advance Directives Provider Source May 20, 2006 ADVANCE DIRECTIVE BAYLEE SHUKLA [facility] Encounter Notes: All associated encounter notes This section contains the clinical notes associated to the Encounter. Date/Time Encounter Note(s) Provider Source Mar 11, 2022 01:34 ACCOUNTING OF DISCLOSURES NOTE: TOM ALTAMIRANO [facility] LOCAL TITLE: [facility] PRESCRIPTION DRUG MONITORING [facility] STANDARD TITLE: ACCOUNTING OF DISCLOSURES NOTE DATE OF NOTE: MAR 11, 2022@13:34:52 ENTRY DATE: MAR 11, 2022@13:34:52 AUTHOR: SANDEEP ALTAMIRANO EXP COSIGNER: URGENCY: STATUS: COMPLETED This PDMP query was submitted by Sandeep Altamirano. The clinical justification for this PDMP query i s to review controlled substances prescribed outside of the [place], and any additional information that may become available, as an important compo nent of standard clinical care, and in accordance with [facility] policy. Patient information was shared with the PDMP Aj [facility] [place]. Prescription(s) filled outside the [place] are noted and will be addressed as follows: has weeks of synthet ic narcotics with him. Unable to order new narcotic prescription due to age and clinical condition o f [place]. Further management and titration of narcotics are best managed in a controlled setting - Pain management. /selam/ SANDEEP ALTAMIRANO MD, DOT PHYSICIAN, MANAGER OPERATIONS AND PROCUREMENT Signed: 03/11/2022 13:35 Mar 09, 2022 11:18 RN PROGRESS NOTE: SARAH BENITES [facility] LOCAL TITLE: CCC: CLINICAL [facility]AGE [facility] STANDARD TITLE: RN PROGRESS NOTE DATE OF NOTE: MAR 09, 2022@11:18:55 ENTRY DATE: MAR 09, 2022@11:18:55 AUTHOR: SARAH BENITES EXP COSIGNER: URGENCY: STATUS: COMPLETED CCC: CLINICAL TRIAGE Has ADDENDA Patient Demographics Patient Name: MART WALSH Patient Primary Address: [address] [place] [address]
[place] [address] Patient Primary Phone: [phone] Patient : 1935 SSN: [id number] Patient Age: 86 Caller Relationship: Self Emergency Contactx: BRIAN CHARLES Emergency Contact Phonex: Triage Summary Nurse Summary: Vet reports back pain aft er his left knee buckled one week ago. Vet went to the ED 1 week ago and was prescribed oxycodone. Vet requests prescription for oxycodone for back pain. Pain Score: 8 (Severe Pain) Conducted triage/discussed symptoms Utilized the Triage Tool: Yes Chief Complaint: Back Pain System WHEN: Within 8 Hours Nurse's Recommendation / WHEN: Within 8 Hours System WHERE: Urgent care center Nurse's Recommendation / WHERE: Urgent Non-VA Patient Disposition Patient/Caregiver agrees to plan of care: Yes Patient WHERE: Urgent Care non-VA Patient WHEN: Within 8 hours Patient is Urgent or Emergent Summary of Actions Referred patient to emergency services Instructed patient to go to Urgent Care Provided location of Urgent Care Center Clinical Contact Center Codes Clinic/Location: V1 CWM PHONE CCC RN TXCC Triage Complete Triage Note: Phone Triage 09 Mar 2022 15:14:44 +0000 [place] Demographics 86 y/o Male Results CC: Back Pain Software suggested: Within 8 Hours Software suggested follow-up location: Urgent c are center Values and Measures Duration of CC: 1 Weeks Positive Responses HPI: back injury, recent HPI: back pain, pleuritic HPI: back pain, severe, since the injury Negative Responses Denies: HPI: back erythema, worsening, since th e injury Denies: HPI: back injury, within past 3 days Denies: HPI: back pain, developed after lifting something Denies: HPI: back pain, unable to move Denies: HPI: leg numbness, bilateral, since the injury Denies: HPI: leg numbness, unilateral, since th e injury Denies: HPI: leg weakness, bilateral, since the injury Denies: HPI: urinary incontinence, onset since the injury Denies: HPI: wound, skin penetration /es/ SARAH BENITES RN, MSN Signed: 03/09/2022 11:19 Receipt Acknowledged By: 03/09/2022 13:42 /es/ CARMINE LUON RN- REGISTERED NURSE 03/09/2022 ADDENDUM STATUS: COMPLETED Called [facility] and he report s that he was in garage on 02/28 and his knee buckled and he fell onto his back. Moosic reports that he used his med alert and was transported by ambulance to [facility] where imaging was performed but he is unsure of results. reports that he wa s discharged to home and is receiving nursing and PT homecare services. Vete ran reports back pain that is tolerable while sitting at rest but esca lates to 8-9/10 with activity. is requesting refill of percocet medication that he was short supply from hospital at discharge. Moosic had received 14 t ablets of oxycodone 5 mg/acetaminophen 325mg that he split in half to make supply last longer. Author inquired to effective ness of tramadol medication on back pain and reports that it is not effective in managing jennifer k pain. Author advised will send request to pcp for revi ew and will have records requested from [facility] for provider review. Author performed pdm p and noted in cprs. /selam/ TANYA LUO RN-BC REGISTERED NURSE Signed: 03/09/2022 14:53 Receipt Acknowledged By: * AWAITING SIGNATURE * SANDEEP ALTAMIRANO 03/09/2022 ADDENDUM STATUS: COMPLETED please send record request to [facility] for recent ed notes also, please contact and offer E D follow up appt with pcp by whichever visit type prefers. /selam/ TANYA LUO RN-BC REGISTERED NURSE Signed: 03/09/2022 14:55 Receipt Acknowledged By: * AWAITING SIGNATURE * ADAM MATA
--- OUTSIDE RECORDS SUMMARY | 2022-04-21 09:21 | XMS_ITS | Encounter Summary ---
:1935 Author Organization [facility] Address [address] [place] [address] Support Name Relationship Address Phone BRIAN CHARLES Unavailable [address] [place] [address] BRIAN CHARLES Unavailable [address] [place] [address] BRIAN CHARLES Unavailable [address] [phone] [place] [address] Insurance Providers: All historical and current Section [...] Number Stinson ANTHEM MEDIGAP MEDEX Dec 29, [id number] [phone] Anamika WALSH PATIENT BCBS OF CT PLAN C 2001 3 SPEEDY ANTHEM MEDICARE MEDEX Dec 29, [id number] [phone] Anamika WALSH PATIENT BCBS OF CT SUPPLEMEN BRON 2001 3 SPEED[place] E BCBS [place] MEDICARE MEDEX Dec 29, [id number] [phone] Anamika GONZALES PATIENT SUPPLEMEN BRONZ [id number] 4 SPE[place] MED[place] Dec 29, [id number] [phone] Anamika GONZALES PATIENT SUPPLEMEN BRONZ 2001 4 SPEED[place] E BCBS OF MEDICARE PSUED May 31, [id number] [phone] Anamika GONZALES PATIENT [place] SUPPLEMEN O [id number] 3 SPEEDY [place] MEDEX BRONZ E BLUE CROSS MEDIGAP MEDEX May 31 [id number] [phone] WHEE LER,R PATIENT BLUE [facility] [place] EAST 1999 05 [id number] 4 SEPEDY SHIELD [facility] MEDICARE MEDICARE PART October 29, PART B [id number] [phone] WHEELE R,R PATIENT (WNR) (M) B 2001 RC08 2 SPE[place]Y MEDICARE MEDICARE PART October 29, PART B [id number] [phone] WHEELE R,R PATIENT (WNR) (M) B 2001 85A 00 [place] MEDICARE MEDICARE PART October 29, PART B [id number] [phone] WHEELE R,R PATIENT (WNR) (M) B 2001 RC08 00 [place] MEDICARE MEDICARE PART October 29, PART B [id number] [phone] WHEELE R,R PATIENT (WNR) (M) B 2001 85A 00 [place] MEDICARE MEDICARE PART October 29, PART B [id number] [phone] WHEELE R,R PATIENT (WNR) (M) B 2001 RC08 00 [place] MEDICARE MEDICARE PART May 31, PART A [id number] [phone] WHEELE R,R PATIENT (WNR) (M) A 1999 RC08 2 [place] MEDICARE MEDICARE PART May 31, PART A [id number] [phone] WHEELE R,R PATIENT (WNR) (M) A 1999 85A 00 SPE[place] MEDICARE MEDICARE PART May 31, PART A [id number] [phone] WHEELE R,R PATIENT (WNR) (M) A 1999 RC08 00 [place] MEDICARE MEDICARE PART May 31, PART A [id number] [phone] WHEELE R,R PATIENT (WNR) (M) A 1999 85A 00 [place] MEDICARE MEDICARE PART May 31, PART A [id number] [phone] WHEELE R,R PATIENT (WNR) (M) A 1999 RC08 00 SPEEDY Selected Encounter This section includes the information on record at [place] for the Encounter. Date/Time Encounter Type Encounter Description Reason Provider Source Mar 09, 2022 01:34 Outpatient Encounter PRIMARY CARE/MEDICINE PM IHE Encounter Template Text not used by [place] Plan of Treatment: Future Appointments (+ 6 months) and Future Tests (+/- 45 days) The Plan of Treatment section includes future care activities for the patient from all [place] [facility]. This section includes future appointments and future orders which are active, pending orscheduled.Future Appointments This section includes appointments that were scheduled to occur 6 months from the date of the Encounter, up to a maximum of 20 appointments. The data comes from all [place] treatment facilities. Appointment Date/Time Appointment Type Appointment Facili ty Name Mar 14, 2022 08:30 AM [facility]ATORY [facility] Mar 14, 2022 09:00 AM [facility] Mar 21, 2022 10:[address] [facility] Mar 27, 2022 09:30 AM [facility] Apr 16, 2022 09:30 AM [facility] May 21, 2022 01:00 PM [facility] Social History: Smoking Status (Most current) and Tobacco Use (All prior to encounter date) This section includes the most current, and the historical, smoking and tobacco-related health factors from the [place] facility where the Encounter took place.Current Smoking Status This section includes the most current smoking, or tobacco-related health factor, from the [place] facility where the Encounter took place. Date/Time Current Smoking Status Comment Facility Jul 26, 2020 10:43 AM [place]-TOBACCO FORMER USER [facility] Tobacco Use History This section includes a history of the smoking, or tobacco- related health factors, that were collected on or before the date of the Encounter. The data comes from the [place] facility where the Encounter took place. Date/Time Smoking Status/Tobacco Use Comment [facility] Jul 26, 2020 10:43 AM [place]-TOBACCO QUIT 15 YRS OR [facility] Advance Directives: All historical and current [...] Encounter. Date/Time Encounter Note(s) Provider Source Mar 09, 2022 01:41 PM ACCOUNTING OF DISCLOSURES NOTE: OLIVER PHILLIPS LOCAL TITLE: [place] PRESCRIPTION DRUG MONITORING PROGRAM STANDARD TITLE: ACCOUNTING OF DISCLOSURES NOTE DATE OF NOTE: MAR 09, 2022@13:41:38 ENTRY DATE: MAR 09, 2022@13:41:38 AUTHOR: CINDY PHILLIPS COSIGNER: TIMBO ALTAMIRANO URGENCY: STATUS: COMPLETED This PDMP query was submitted by Cindy Phillips n behalf of Sandeep Altamirano. The clinical justification for this PDMP query i s to review controlled substances prescribed outside of the [place], and any additional information that may become available, as an important compo nent of standard clinical care, and in accordance with [facility] policy. Patient information was shared with the PDMP Aj [employer]. The [facility] prescriber, for which I am a delegate, wi ll be alerted of these PDMP findings through co-signature of this progr ess note. Prescription(s) which have been filled outside [facility] in the last 90 days are noted. percocet received from provider at [facility] on 02/28/2022. /selam/ TANYA LUO RN-BC REGISTERED NURSE Signed: 03/09/2022 13:41 /selam/ SANDEEP ALTAMIRANO MD, DOT PHYSICIAN, STOVE REFINISHER Cosigned: 03/11/2022 11:42
--- OUTSIDE RECORDS SUMMARY | 2022-04-21 09:21 | XMS_ITS | Encounter Summary ---
:1935 Author Organization [facility] Address [address] [place] [address] Support Name Relationship Address Phone BRIAN CHARLES Unavailable [address] [place] [address] BRIAN CHARLES Unavailable [address] [place] [address] BRIAN CHARLES Unavailable [address] [phone] [place] [address] Insurance Providers: All historical and current Section [...] Number Stinson ANTHEM MEDIGAP MEDEX Dec 29, [id number] [phone] Anamika WALSH PATIENT BCBS OF CT PLAN C 2001 3 SPEEDY ANTHEM MEDICARE MEDEX Dec 29, [id number] [phone] Anamika WALSH PATIENT BCBS OF CT SUPPLEMEN BRON 2001 3 SPE[place] E BCBS [place] MEDIC[place] MED[place] Dec 29, [id number] [phone] Anamika GONZALES PATIENT SUPPLEMEN BRONZ 2001 4 SPE[place] Dec 29, [id number] [phone] Anamika GONZALES PATIENT SUPPLEMEN BRONZ 2001 4 SPEEDY [place] E BCBS OF MEDICARE PSUED May 31, [id number] [phone] Anamika GONZALES PATIENT [place] SUPPLEMEN O 1999 3 SPEEDY [place] MEDEX BRONZ E BLUE CROSS MEDIGAP MEDEX May 31 [id number] [phone] WHEE LER,R PATIENT BLUE [facility] [place] EAST 1999 05 [id number] 4 SPEEDY SHIELD [facility] MEDICARE MEDICARE PART October 29, PART B [id number] [phone] WHEELE R,R PATIENT (WNR) (M) B 2001 RC08 2 SPEED[place] MEDICARE MEDICARE PART October 29, PART B [id number] [phone] WHEELE R,R PATIENT (WNR) (M) B 2001 85A 00 SPE[place] MEDICARE MEDICARE PART October 29, PART B [id number] [phone] WHEELE R,R PATIENT (WNR) (M) B 2001 RC08 00 SPE[place] MEDICARE MEDICARE PART October 29, PART B [id number] [phone] WHEELE R,R PATIENT (WNR) (M) B 2001 85A 00 [place] MEDICARE MEDICARE PART October 29, PART B [id number] [phone] WHEELE R,R PATIENT (WNR) (M) B 2001 RC08 00 SPE[place]Y MEDICARE MEDICARE PART May 31, PART A [id number] [phone] WHEELE R,R PATIENT (WNR) (M) A 1999 RC08 2 SPE[place] MEDICARE MEDICARE PART May 31, PART A [id number] [phone] WHEELE R,R PATIENT (WNR) (M) A 1999 85A 00 SPE[place] MEDICARE MEDICARE PART May 31, PART A [id number] [phone] WHEELE R,R PATIENT (WNR) (M) A 1999 RC08 00 SPE[place] MEDICARE MEDICARE PART May 31, PART A [id number] [phone] WHEELE R,R PATIENT (WNR) (M) A 1999 85A 00 SPE[place] MEDICARE MEDICARE PART May 31, PART A [id number] [phone] WHEELE R,R PATIENT (WNR) (M) A 1999 RC08 00 SPEEDY Selected Encounter This section includes the information on record at [place] for the Encounter. Date/Time Encounter Type Encounter Description Reason Provider Source Feb 25, 2022 10:55 Outpatient Encounter PRIMARY CARE/MEDICINE PM IHE Encounter Template Text not used by [place] Plan of Treatment: Future Appointments (+ 6 months) and Future Tests (+/- 45 days) The Plan of Treatment section includes future care activities for the patient from all [place] [facility]. This section includes future appointments and future orders which are active, pending orscheduled.Future Appointments This section includes appointments that were scheduled to occur 6 months from the date of the Encounter, up to a maximum of 20 appointments. The data comes from all [place] treatment facilities. Appointment Date/Time Appointment Type Appointment Facili ty Name Mar 14, 2022 08:30 AM AM[facility]ULATORY [facility] Mar 14, 2022 09:00 AM [facility] Mar 21, 2022 10:30 AM [facility] Mar 27, 2022 09:30 AM [facility] Apr 16, 2022 09:30 AM [facility] May 21, 2022 01:00 PM [facility] Social History: Smoking Status (Most current) and Tobacco Use (All prior to encounter date) This section includes the most current, and the historical, smoking and tobacco-related health factors from the [place] facility where the Encounter took place.Current Smoking Status This section includes the most current smoking, or tobacco-related health factor, from the [place] facility where the Encounter took place. Date/Time Current Smoking Status Comment Facility Jul 26, 2020 10:43 AM [place]-TOBACCO FORMER USER [facility] Tobacco Use History This section includes a history of the smoking, or tobacco- related health factors, that were collected on or before the date of the Encounter. The data comes from the [place] facility where the Encounter took place. Date/Time Smoking Status/Tobacco Use Comment [facility] Jul 26, 2020 10:43 AM [place]-TOBACCO QUIT 15 YRS OR [facility] Advance Directives: All historical and current Section Date Range: From patient's date of to the date document was created. This section includes ALL of a patient's completed or amended [place] Advance and Rescinded Directives. The entries below indicate that a directive exists for the patient, but an actual copy is not included with this document. The data comes from all [place] facilities. Date Advance Directives Provider Source May 20, 2006 ADVANCE DIRECTIVE BAYLEE SHUKLA Encounter Notes: All associated encounter notes This section contains the clinical notes associated to the Encounter. Date/Time Encounter Note(s) Provider Source Feb 25, 2022 10:56 PM ACCOUNTING OF DISCLOSURES NOTE: Antonella ALTAMIRANO LOCAL TITLE: STATE PRESCRIPTION DRUG MONITORING PROGRAM STANDARD TITLE: ACCOUNTING OF DISCLOSURES NOTE DATE OF NOTE: FEB 25, 2022@22:56:21 ENTRY DATE: FEB 25, 2022@22:56:21 AUTHOR: SANDEEP ALTAMIRANO EXP COSIGNER: URGENCY: STATUS: COMPLETED This PDMP query was submitted by Sandeep Altamirano. The clinical justification for this PDMP query i s to review controlled substances prescribed outside of the [place], and any additional information that may become available, as an important compo nent of standard clinical care, and in accordance with [facility] policy. Patient information was shared with the PDMP [facility] [place]. No prescription(s) for controlled substances out side the [place] were found in the last 90 days. Agree. /selam/ SANDEEP ALTAMIRANO MD, DOT PHYSICIAN, ALUMINUM BOATS ASSEMBLER Signed: 02/25/2022 22:56
--- OUTSIDE RECORDS SUMMARY | 2022-04-21 09:21 | XMS_ITS ---
:1935 Author Organization Department [facility] Address [address] [place] [address] Support Name Relationship Address Phone BRIAN CHARLES Unavailable [address] [place] [address] BRIAN CHARLES Unavailable [address] [place] [address] BRIAN CHARLES Unavailable [address] [phone] [place] [address] Insurance Providers: All historical and current Section [...] Number Stinson ANTHEM MEDIGAP MEDEX Dec 29, [id number] [phone] Anamika WALSH PATIENT BCBS OF CT PLAN C 2001 3 SPEEDY ANTH MEDICARE MEDEX Dec 29, [id number] [phone] Anamika WALSH PATIENT BCBS OF CT SUPPLEMEN BRONZ 2001 3 SPE[place]BS [place] MED[place] MED[place] Dec 29, [id number] [phone] Anamika GONZALES PATIENT SUPPLEMEN BRONZ 2001 4 [place] Dec 29, [id number] [phone] Anamika GONZALES PATIENT SUPPLEMEN BRONZ 2001 4 SPEEDY [place] E BCBS OF MEDICARE PSUED May 31, [id number] [phone] Anamika GONZALES PATIENT MASS SUPPLEMEN O 1999 3 SPEEDY [place] MEDEX BRONZ E BLUE CROSS MEDIGAP MEDEX May 31, [id number] [phone] WHEE LER,R PATIENT BLUE [facility] [place] 1999 05 [id number] 4 [facility] MEDICARE MEDICARE PART October 29, PART B [id number] [phone] WHEELE R,R PATIENT (WNR) (M) B 2001 RC08 2 [facility] MEDICARE MEDICARE PART October 29, PART B [id number] [phone] WHEELE R,R PATIENT (WNR) (M) B 2001 85A 00 SPEEDY MEDICARE MEDICARE PART October 29, PART B [id number] [phone] WHEELE R,R PATIENT (WNR) (M) B 2001 RC08 00 [place] MEDICARE MEDICARE PART October 29, PART B [id number] [phone] WHEELE R,R PATIENT (WNR) (M) B 2001 85A 00 [place] MEDICARE MEDICARE PART October 29, PART B [id number] [id number] WHEELE R,R PATIENT (WNR) (M) B 2001 RC08 00 [place] MEDICARE MEDICARE PART May 31, PART A [id number] [phone] WHEELE R,R PATIENT (WNR) (M) A 1999 RC08 2 [place] MEDICARE MEDICARE PART May 31, PART A [id number] [id number] WHEELE R,R PATIENT (WNR) (M) A 1999 85A 00 [place] MEDICARE MEDICARE PART May 31, PART A [id number] [id number] WHEELE R,R PATIENT (WNR) (M) A 1999 RC08 00 [place] MEDICARE MEDICARE PART May 31, PART A [id number] [phone] WHEELE R,R PATIENT (WNR) (M) A 1999 85A 00 [place] MEDICARE MEDICARE PART May 31, PART A [id number] [phone] WHEELE R,R PATIENT (WNR) (M) A 1999 RC SPEEDY Selected Encounter This section includes the information on record at [facility] for the [facility]counter. Date/Time Encounter Type Encounter Description Reason Provider Source Mar 12, 2022 10:07 Outpatient Encounter ADMIN PAT ACTIVSTEPHANIA SANDOVAL) [facility] Encounter Template Text not used by [facility] Plan of Treatment: Future Appointments (+ 6 months) and Future Tests (+/- 45 days) The Plan of Treatment section includes future care activities for the patient from all [place] [facility] [place] This section includes future appointments and future orders which are active, pending orscheduled.Future Appointments This section includes appointments that were scheduled to occur 6 months from the date of the Encounter, up to a maximum of 20 appointments. The data comes from all SD treatment [facility]. Appointment Date/Time Appointment Type Appointment Facili ty Name Mar 14, 2022 08:[address] [facility] [place] Mar 14, 2022 09:00 AM [facility] Mar 21, 2022 10:30 [facility] Mar 27, 2022 09:30 AM [facility] Apr 16, 2022 09:30 AM [facility] May 21, 2022 01:00 PM [facility] Social History: Smoking Status (Most current) and Tobacco Use (All prior to encounter date) This section includes the most current, and the historical, smoking and tobacco-related health factors from the SD facility where the Encounter took place.Current Smoking Status This section includes the most current smoking, or tobacco-related health factor, from the SD facility where the Encounter took place. Date/Time Current Smoking Status Comment Facility Jul 26, 2020 10:43 AM SD-TOBACCO FORMER USER [facility] Tobacco Use History This section includes a history of the smoking, or tobacco- related health factors, that were collected on or before the date of the Encounter. The data comes from the SD facility where the Encounter took place. Date/Time Smoking Status/Tobacco Use Comment [facility] Jul 26, 2020 10:43 AM SD-TOBACCO QUIT 15 YRS OR [facility] Advance Directives: All historical and current Section Date Range: From patient's date of to the date document was created. This section includes ALL of a patient's completed or amended SD Advance and Rescinded Directives. The entries below indicate that a directive exists for the patient, but an actual copy is not included with this document. The data comes from all SD facilities. Date Advance Directives Provider Source May 20, 2006 ADVANCE DIRECTIVE BAYLEE SHUKLA [place] Encounter Notes: All associated encounter notes This section contains the clinical notes associated to the Encounter. Date/Time Encounter Note(s) Provider Source Mar 12, 2022 10:07 TELEPHONE ENCOUNTER NOTE: SARA FRANK CNTRL [facility] AM LOCAL TITLE: VISN 1 CCC ACTION REQUIRED [place] [facility] STANDARD TITLE: TELEPHONE ENCOUNTER NOTE DATE OF NOTE: MAR 12, 2022@10:07:57 ENTRY DATE: MAR 12, 2022@10:10:50 AUTHOR: SARA FRANK EXP COSIGNER: URGENCY: STATUS: COMPLETED Type of call: CLINICAL INFORMATION/EDUCATION. PCMM Provider Info: [facility] ([id number]) PACT: PACT 8 (Focus: Womens Health) Designated Pcp: SANDEEP KAPADIA Model Maker Scale: CINDY BAER Clinical Associate: KATHRYN SALDAÑA PHON [id number] Commercial Technician: ADAM MATA PACT Clinical Pharmacist: DONNY JACK Clinical POC: Clinical Associate KATHRYN MCKEON PHONE:[phone] Administrative POC: Commercial Technician ADAM MATA *PATIENT called in for MART WALSH ([id number]) . The following identifiers were used to verify th is patient: SSN. Contact Caller Response: ADM CALL RESOLVED Caller Area: [place] [facility] Comments: requesting status update regarding oxyco done request from community provider. Stated would like to brain picker at [facility] p harmacy when ready. Author: SARA FRANK Evaluation/Management Code: HC PRO PHONE CALL 5- 10 MIN ([id number]). Starting at: 03/12/2022 @ 10:07:57 AM Ending at: 03/12/2022 @ 10:10:34 AM Length: 2 minutes. Chief Complaint: Not applicable to call. Class Code: Other specified counseling. /selam/ SARA FRANK VISN 1 CCC AMSA Signed: 03/12/2022 10:10 Receipt Acknowledged By: * AWAITING SIGNATURE * CINDY BAER * AWAITING SIGNATURE * KATHRYN SALDAÑA
--- OUTSIDE RECORDS SUMMARY | 2022-04-21 09:22 | XMS_ITS | Encounter Summary ---
:[address] [facility] Address [address] [place] [address] Support Name Relationship Address Phone BRIAN CHARLES Unavailable [address] [place] [address] BRIAN CHARLES Unavailable [address] [place] [address] BRIAN CHARLES Unavailable [address] [phone] [place] [address] Insurance Providers: All historical and current Section [...] Number Stinson ANTHEM MEDIGAP MEDEX Dec 29, [id number] [phone] Anamika WALSH PATIENT BCBS OF CT PLAN C 2001 3 SPEEDY ANTHEM MEDICARE MEDEX Dec 29, [id number] [phone] Anamika WALSH PATIENT BCBS OF CT SUPPLEMEN BRON 2001 3 SPE[place] BCBS [place] MEDICARE MEDEX Dec 29, [id number] [phone] Anamika GONZALES PATIENT SUPPLEMEN BRONZ 2001 4 [place] MED[place] MED[place] Dec 29, [id number] [phone] Anamika GONZALES PATIENT SUPPLEMEN BRONZ 2001 4 [place] E BCBS OF MEDICARE PSUED May 31, [id number] [phone] Anamika GONZALES PATIENT MASS SUPPLEMEN O 1999 3 SPEEDY [place] MEDEX BRONZ E BLUE CROSS MEDIGAP MEDEX May 31 [id number] [phone] WHEE LER,R PATIENT [facility]UE [facility] [place] 1999 05 [id number] SPEEDY [facility] MEDICARE MEDICARE PART October 29, PART B [id number] [phone] WHEELE R,R PATIENT (WNR) (M) B 2001 RC08 2 SPE[employer] MEDICARE MEDICARE PART October 29, PART B [id number] [phone] WHEELE R,R PATIENT (WNR) (M) B 2001 85A 00 [place] MEDICARE MEDICARE PART October 29, PART B [id number] [phone] WHEELE R,R PATIENT (WNR) (M) B 2001 RC08 00 SPE[place] MEDICARE MEDICARE PART October 29, PART B [id number] [phone] WHEELE R,R PATIENT (WNR) (M) B 2001 85A 00 [place] MEDICARE MEDICARE PART October 29, PART B [id number] [phone] WHEELE R,R PATIENT (WNR) (M) B 2001 RC08 00 SPE[place] MEDICARE MEDICARE PART May 31, PART A [id number] [phone] WHEELE R,R PATIENT (WNR) (M) A 1999 RC08 2 SPE[employer] MEDICARE MEDICARE PART May 31, PART A [id number] [phone] WHEELE R,R PATIENT (WNR) (M) A 1999 85A 00 SPE[place] MEDICARE MEDICARE PART May 31, PART A [id number] [phone] WHEELE R,R PATIENT (WNR) (M) A 1999 RC08 00 SPE[place]Y MEDICARE MEDICARE PART May 31, PART A [id number] [phone] WHEELE R,R PATIENT (WNR) (M) A 1999 85A 00 SPE[employer]Y MEDICARE MEDICARE PART May 31, PART A [id number] [phone] WHEELE R,R PATIENT (WNR) (M) A 1999 RC08 00 SPEEDY Selected Encounter This section includes the information on record at PA for the Encounter. Date/Time Encounter Type Encounter Description Reason Provider Source Mar 14, 2022 08:27 Outpatient Encounter PRIMARY CARE/MEDICINE AM [facility] Encounter Template Text not used by PA Plan of Treatment: Future Appointments (+ 6 months) and Future Tests (+/- 45 days) The Plan of Treatment section includes future care activities for the patient from all PA treatmentfacilities. This section includes future appointments and future orders which are active, pending orscheduled.Future Appointments This section includes appointments that were scheduled to occur 6 months from the date of the Encounter, up to a maximum of 20 appointments. The data comes from all PA treatment facilities. Appointment Date/Time Appointment Type Appointment Facili ty Name Mar 21, 2022 10:30 AM AMBULATORY - REHAB [facility] D Mar 27, 2022 09:30 AM AMBULAT[facility] - [facility] Apr 16, 2022 09:30 AM AMBULATORY MEDICINE [facility] May 21, 2022 01:00 PM AMBULATORY - MEDICINE [facility] Lab Results: +/- 30 days of the encounter This section includes the Chemistry and Hematology Lab Results on record with PA for the patient. Radiology Reports and Pathology Reports are provided separately, in subsequent sections.Lab Results This section contains the Chemistry/Hematology Results that were resulted 30 days before or 30 daysafter the date of the Encounter. Date/Time Source Result Type Result - Unit Interpretation Reference Range Comment Apr 13, 2022 07:32 AM [facility] [place] TRANSFERRIN, SERUM Specim en Type: SERUM No comment enter ed. Ordering Provid er: ELEUTERIO ORONA Report Released Date/Time: November 24, 2021 10:36 AM Reporting Lab: [facility] [address] [facility] [address] Performing Lab: [facility] [address] [facility] [address] TRANSFERRIN, SERUM 175 L 200-360 Apr 13, 2022 [place] [place] HEMOGLOBIN A1C Specimen Type: BLOOD 07:32 AM PANEL Comment: Values obtained from A1C measurements can vary. For atypical A1C assays, a reported value of 7.0 could actually be between 6.72 and 7.28 if measured by a reference method. A reported value of 9.0 could actual ly be between 8.73 and 9.27. Ref: http://www.ngsp.org/CAPdata.asp Ordering Provid er: ELEUTERIO ORONA Report Released Date/Time: November 24, 2021 09:54 AM Reporting Lab[facility] [address] [facility] [address] Performing Lab: [facility] [address] [facility] [address] HEMOGLOBIN A1C 6.6 H 4.0-5.6 Apr 13, 2022 07:32 AM [place] [place] TSH Specimen Type: SERUM No comment enter ed. Ordering Provid er: ELEUTERIO ORONA Report Released Date/Time: November 24, 2021 09:54 AM Reporting Lab: [facility] [address] [facility] [address] Performing [facility]: [facility] [address] [facility] [address] TSH 1.43 0.35-5.00 Apr 13, 2022 07:32 [place] BASIC METABOLIC PANEL Specim en Type: SERUM AM (fasting) No comment enter ed. Ordering Provid er: ELEUTERIO ORONA Report Released Date/Time: November 24, 2021 09:54 AM Reporting Lab: [facility] [address] [facility] [address] Performing Lab: [facility] [address] [facility] [address] UREA NITROGEN 28 H 7-25 GLUCOSE 152 H 65-100 SODIUM 140 135-145 POTASSIUM 4.9 3.5-5.0 CHLORIDE 107 100-110 CO2 21 20-30 CREATININE, Serum 1.33 0.50-1.40 eGFR(CKD-EPI 2020) 52 L >60 Apr 13, 2022 07:32 AM [place] [place] LIVER FUNCTION Specimen Type: SERUM No comment enter ed. Ordering Provid er: ELEUTERIO ORONA Report Released Date/Time: November 24, 2021 09:54 AM Reporting Lab: [facility] [address] [facility] [address] Performing Lab: [facility] [address] [facility] [address] PROTEIN,TOTAL 6.6 6.0-8.3 ALBUMIN 2.7 L 3.5-5.0 ALKALINE PHOSPHATASE 122 40-150 AST 24 5-34 ALT 43 <6-55 BILIRUBIN, TOTAL 0.4 0.2-1.2 Apr 13, 2022 07:32 AM [place] LIPID PANEL FASTING Speci men Type: SERUM No comment enter ed. Ordering Provid er: ELEUTERIO ORONA Report Released Date/Time: November 24, 2021 09:54 AM Reporting Lab: [facility] [place] [facility] [address] [facility] [address] Performing Lab: [facility] [place] [facility] [address] [facility] [address] CHOLESTEROL 104 <7-199 TRIGLYCERIDE 97 0-150 LDL calculated 59 0-129 CHOL/HDL 4.0 HDL CHOLESTEROL 26 L 40-60 Apr 13, 2022 07:32 AM [place] RETICULOCYTES Specimen Type: BLOOD No comment enter ed. Ordering Provid er: ELEUTERIO ORONA Report Released Date/Time: November 24, 2021 10:36 AM Reporting Lab: [facility] [place] [facility] [address] [facility] [address] Performing Lab: [facility] [place] [facility] [address] [facility] [address] RETIC % 1.6 0.6-2.0 RETIC, ABS 52.5 30.0-90.0 Ret-He % 33.0 27.9-42.0 Apr 13, 2022 07:32 AM [place] VITAMIN B12 Specimen Type: SERUM No comment enter ed. Ordering Provid er: ELEUTERIO ORONA Report Released Date/Time: November 24, 2021 10:36 AM Reporting Lab: [facility] [place] [facility] [address] [facility] [address] Performing Lab: [facility] [place] [facility] [address] [facility] [address] VITAMIN B12 313 200-900 Apr 13, 2022 07:32 AM [place] FERRITIN Specimen Type: SERUM No comment enter ed. Ordering Provid er: ELEUTERIO ORONA Report Released Date/Time: November 24, 2021 10:36 AM Reporting Lab: [facility] [place] [facility] [address] [facility] [address] Performing Lab: [facility] [address] [facility] [address] FERRITIN 526.3 H 20-300 Apr 13, 2022 07:32 AM [place] IRON & TIBC PANEL Specime n Type: SERUM No comment enter ed. Ordering Provid er: ELEUTERIO ORONA Report Released Date/Time: November 24, 2021 10:36 AM Reporting Lab: [facility] [address] [facility] [address] Performing Lab: [facility] [address] [facility] [address] TIBC 243 204-475 IRON 46 40-160 Transferrin Saturation 18.9 L 20.0-50 .0 Apr 13, 2022 07:32 AM [place] CBC AND DIFF (AUTO) Speci men Type: BLOOD No comment enter ed. Ordering Provid er: ELEUTERIO ORONA Report Released Date/Time: November 24, 2021 09:54 AM Reporting Lab: [facility] [address] [facility] [address] Performing Lab: [facility] [address] [facility] [address] WBC 13.21 H 4.50-11.00 RBC 3.32 L 4.23-5.66 HGB 10.0 L 12.8-17 HCT 31.1 L 39.2-50.4 MCV 93.7 82-99 MCHC 32.2 30.8-35.1 PLT 544 H 140-360 RDW-CV 14.6 12.0-16.0 Ferry, Abs 1.34 H 0.30-1.10 MCH 30.1 26.2-32.6 Neut % 54.1 Lymph % 27.0 Ferry % 10.1 Eos % 7.5 Baso % 0.5 Neut, Abs 7.14 2.20-7.60 Lymph, Abs 3.57 H 1.00-3.20 Eos, Abs 0.99 H 0.03-0.44 Baso, Abs 0.07 0.01-0.13 Immature Gran % 0.8 Immature Gran, Abs 0.10 H 0.00-0.06 Social History: Smoking Status (Most [...] Comment Facility Jul 26, 2020 10:43 AM PA-TOBACCO FOR[facility]ER [facility] [facility] Tobacco Use History This section includes a history of the smoking, or tobacco- related health factors, that were collected on or before the date of the Encounter. The data comes from the PA facility where the Encounter took place. Date/Time Smoking Status/Tobacco Use Comment [facility] Jul 26, 2020 10:43 AM PA-TOBACCO QUIT 15 YRS [facility] [place] [facility] Advance Directives: All historical and current [...] Encounter. Date/Time Encounter Note(s) Provider Source Mar 14, 2022 08:27 AM PRIMARY CARE NOTE: TRISTAN MENDEZ IELD LOCAL TITLE: WALK-IN NOTE PRIMARY CARE (T) STANDARD TITLE: PRIMARY CARE NOTE DATE OF NOTE: MAR 14, 2022@08:27 ENTRY DATE: MAR 14, 2022@08:27:26 AUTHOR: TRISTAN MENDEZ EXP COSIGNER: URGENCY: STATUS: COMPLETED <====Click to Start Advanced Medical Support Arbyrd presents to the Primary Care clinic with the following request: [ ]Medication Renewal/Refill [ ]Consultation with Team RN [ ]Symptoms [ ]Other The Arbyrd states they are: [ X ]Waiting [ ]Not Waiting Yes Walk in visit scheduled with PACT Nurse [ X ] At this encounter the Arbyrd's demographi cs were verified. [ X ] At this encounter the 's Insurance information was verified. [ X ] At this encounter the below scheduled visi ts for the Arbyrd were discussed and appointment reminder card wa s offered. Future appointments: 03/14/2022 13:15 CWM/SO/I VE UP NURSING Vet presents to clinic asking to be seen for jennifer wang pain. /selam/ TRISTAN MENDEZ ADVANCED OPTOELECTRONICS ENGINEER Signed: 03/14/2022 08:28 Receipt Acknowledged By: * AWAITING SIGNATURE * CINDY BAER * AWAITING SIGNATURE * MALISSA CALERO
--- OUTSIDE RECORDS SUMMARY | 2022-04-21 09:22 | XMS_ITS | Encounter Summary ---
:1935 Author Organization [facility] Address [address] [place] [address] Support Name Relationship Address Phone BRIAN CHARLES Unavailable [address] [place] [address] BRIAN CHARLES Unavailable [address] [place] [address] BRIAN CHARLES Unavailable [phone] [place] [address] Insurance Providers: All historical and current Section [...] Number Stinson ANTHEM MEDIGAP MEDEX Dec 29, [id number] [phone] Anamika WALSH PATIENT BCBS OF CT PLAN C 2001 3 SPEEDY ANTHEM MEDICARE MEDEX Dec 29, [id number] [phone] Anamika WALSH PATIENT BCBS OF CT SUPPLEMEN BRON 2001 3 SPE[place] E [address] CT MEDICARE MEDEX Dec 29, [id number] [phone] Anamika GONZALES PATIENT SUPPLEMEN BRONZ 2001 4 [place] E [place]BS CT MEDICARE MEDEX Dec 29, [id number] [phone] Anamika GONZALES PATIENT SUPPLEMEN BRONZ 2001 4 SPEEDY [place] E BCBS OF MEDICARE PSUED May 31, [id number] [phone] Anamika GONZALES PATIENT [place]ASS SUPPLEMEN O 1999 3 SPEEDY [place] MEDEX BRONZ E BLUE CROSS MEDIGAP MEDEX May 31 [id number] [phone] WHEE LER,R PATIENT BLUE [facility]PER [facility] [place] EAST 1999 05 [id number] SPEEDY SHIELD [facility] MEDICARE MEDICARE PART October 29, PART B [id number] [phone] WHEELE R,R PATIENT (WNR) (M) B 2001 RC08 2 SPEEDY MEDICARE MEDICARE PART October 29, PART B [id number] [phone] WHEELE R,R PATIENT (WNR) (M) B 2001 85A 00 SPEEDY MEDICARE MEDICARE PART October 29, PART B [id number] [phone] WHEELE R,R PATIENT (WNR) (M) B 2001 RC08 00 SPEEDY MEDICARE MEDICARE PART October 29, PART B [id number] [phone] WHEELE R,R PATIENT (WNR) (M) B 2001 85A 00 SPEEDY MEDICARE MEDICARE PART October 29, PART B [id number] [phone] WHEELE R,R PATIENT (WNR) (M) B 2001 RC08 00 SPEEDY MEDICARE MEDICARE PART May 31, PART A [id number] [phone] WHEELE R,R PATIENT (WNR) (M) A 1999 RC08 2 SPEEDY MEDICARE MEDICARE PART May 31, PART A [id number] [id number] WHEELE R,R PATIENT (WNR) (M) A 1999 85A 00 SPEEDY MEDICARE MEDICARE PART May 31, PART A [id number] [phone] WHEELE R,R PATIENT (WNR) (M) A 1999 RC08 00 SPEEDY MEDICARE MEDICARE PART May 31, PART A [id number] [id number] WHEELE R,R PATIENT (WNR) (M) A 1999 85A 00 SPEEDY MEDICARE MEDICARE PART May 31, PART A [id number] [phone] WHEELE R,R PATIENT (WNR) (M) A 1999 RC08 00 SPEEDY Selected Encounter This section includes the information on record at [place] for the Encounter. Date/Time Encounter Type Encounter Description Reason Provider Source Mar 12, 2022 02:51 Outpatient Encounter PRIMARY CARE/MEDICINE PM IHE Encounter Template Text not used by [place] Plan of Treatment: Future Appointments (+ 6 months) and Future Tests (+/- 45 days) The Plan of Treatment section includes future care activities for the patient from all [facility]. This section includes future appointments and future orders which are active, pending orscheduled.Future Appointments This section includes appointments that were scheduled to occur 6 months from the date of the Encounter, up to a maximum of 20 appointments. The data comes from all [place] treatment facilities. Appointment Date/Time Appointment Type Appointment Facili ty Name Mar 14, 2022 08:30 AM [facility] [place] Mar 14, 2022 09:00 AM [facility] Mar 21, 2022 10:30 [facility] Mar 27, 2022 09:30 AM [facility] Apr 16, 2022 09:30 AM [facility] May 21, 2022 01:00 PM [facility] Social History: Smoking Status (Most current) and Tobacco Use (All prior to encounter date) This section includes the most current, and the historical, smoking and tobacco-related health factors from the [place] facility where the Encounter took place.Current Smoking Status This section includes the most current smoking, or tobacco-related health factor, from the [place] facility where the Encounter took place. Date/Time Current Smoking Status Comment Facility Jul 26, 2020 10:43 AM [place]-TOBACCO FORMER USER [facility] Tobacco Use History This section includes a history of the smoking, or tobacco- related health factors, that were collected on or before the date of the Encounter. The data comes from the [place] facility where the Encounter took place. Date/Time Smoking Status/Tobacco Use Comment [facility] Jul 26, 2020 10:43 AM [place]-TOBACCO QUIT 15 YRS OR [facility] Advance Directives: All historical and current Section Date Range: From patient's date of to the date document was created. This section includes ALL of a patient's completed or amended [place] Advance and Rescinded Directives. The entries below indicate that a directive exists for the patient, but an actual copy is not included with this document. The data comes from all [place] facilities. Date Advance Directives Provider Source May 20, 2006 ADVANCE DIRECTIVE BAYLEE SHUKLA [place] Encounter Notes: All associated encounter notes This section contains the clinical notes associated to the Encounter. Date/Time Encounter Note(s) Provider Source Mar 12, 2022 02:51 PM ADMINISTRATIVE NOTE: ADAM MATA [facility] LOCAL TITLE: ADMINISTRATIVE NOTE STANDARD TITLE: ADMINISTRATIVE NOTE DATE OF NOTE: MAR 12, 2022@14:51 ENTRY DATE: MAR 12, 2022@14:51:06 AUTHOR: ADAM MATA EXP COSIGNER: URGENCY: STATUS: COMPLETED TELEPHONE CALL - Scheduling PCP appointment PATIENT PHONE - PHONE NUMBER [CELLULAR] - NONE FOUND PURPOSE OF CALL: [X} Schedule ED Discharge appointment with PRIMA RY CARE PROVIDER [ ] Reschedule appointment with PRIMARY CARE PRO VIDER ========= Auto Mechanic Supervisor called - RESULTS OF CALL: [X} SUCCESSFUL CONTACT: [X} UNABLE TO SCHEDULE an appointment [ ] Scheduled subject appointment with PRIMARY CARE PROVIDER == === DETAILS OF CALL: [X} SPOKE WITH RESPONDENT, [X} Patient [ ] Patient lead customer service representative, [X] Respondent declined to schedule an appointme nt with PCP at this time, as first availability was on 021, and Wyatt c/o pain, and need for care much sooner . Auto Mechanic Supervisor advised of availability [facility]; stated intent [facility]. Upcoming Appointments: No data available /selam/ ADAM MATA [facility], [place] [facility], [facility] Signed: 03/12/2022 14:57
--- OUTSIDE RECORDS SUMMARY | 2022-04-21 09:22 | XMS_ITS | Encounter Summary ---
:1935 Author Organization [facility] Address [address] [place] [address] Support Name Relationship Address Phone BRIAN CHARLES Unavailable [address] [place] [address] BRIAN CHARLES Unavailable [address] [place] [address] BRIAN CHARLES Unavailable [address] [phone] [place] [address] Insurance Providers: All historical and current Section [...] Number Stinson ANTHEM MEDIGAP MEDEX Dec 29, [id number] [phone] Anamika WALSH PATIENT BCBS OF CT PLAN C 2001 3 SPEEDY ANTHEM MEDICARE MEDEX Dec 29, [id number] [phone] Anamika WALSH PATIENT BCBS OF CT SUPPLEMEN BRON 2001 3 [place] MEDICARE MED[place] Dec 29, [id number] [phone] Anamika GONZALES PATIENT SUPPLEMEN BRONZ [id number] SPE[place] MED[place] MED[place] Dec 29, [id number] [phone] Anamika GONZALES PATIENT SUPPLEMEN BRONZ 2001 4 SPEEDY [place] E BCBS OF MEDICARE PSUED May 31, [id number] [phone] Anamika GONZALES PATIENT MASS SUPPLEMEN O [id number] 3 SPEEDY [place] MEDEX BRONZ E BLUE CROSS MEDIGAP MEDEX May 31, [id number] [phone] WHEE LER,R PATIENT [facility] 1999 05 [id number] 4 [place] SHIELD OF E [place] MEDICARE MEDICARE PART October 29, PART B [id number] [phone] WHEELE R,R PATIENT (WNR) (M) B 2001 RC08 2 [place] MEDICARE MEDICARE PART October 29, PART B [id number] [phone] WHEELE R,R PATIENT (WNR) (M) B 2001 85A 00 SPEEDY MEDICARE MEDICARE PART October 29, PART B [id number] [phone] WHEELE R,R PATIENT (WNR) (M) B 2001 RC08 00 SPEEDY MEDICARE MEDICARE PART October 29, PART B [id number] [phone] WHEELE R,R PATIENT (WNR) (M) B 2001 85A 00 SPEEDY MEDICARE MEDICARE PART October 29, PART B [id number] [phone] WHEELE R,R PATIENT (WNR) (M) B 2001 RC08 00 [facility] MEDICARE MEDICARE PART May 31, PART A [id number] [phone] WHEELE R,R PATIENT (WNR) (M) A 1999 RC08 2 SPEEDY MEDICARE MEDICARE PART May 31, PART A [id number] [phone] WHEELE R,R PATIENT (WNR) (M) A 1999 85A 00 SPEEDY MEDICARE MEDICARE PART May 31, PART A [id number] [phone] WHEELE R,R PATIENT (WNR) (M) A 1999 RC08 00 SPEEDY MEDICARE MEDICARE PART May 31, PART A [id number] [phone] WHEELE R,R PATIENT (WNR) (M) A 1999 85A 00 SPEEDY MEDICARE MEDICARE PART May 31, PART A [id number] [phone] WHEELE R,R PATIENT (WNR) (M) A 1999 RC08 00 SPEEDY Selected Encounter This section includes the information on record at [facility] for the Encounter. Date/Time Encounter Type Encounter Reason Provider Source Description Mar 13, 2022 08:54 Outpatient TELEPHONE TRIAGE CATRACHITO TELLEZ AM Encounter IHE Encounter Template Text not used by [facility] Plan of Treatment: Future Appointments (+ 6 months) and Future Tests (+/- 45 days) The Plan of Treatment section includes future care activities for the patient from all [place] [facility]. This section includes future appointments and future orders which are active, pending orscheduled.Future Appointments This section includes appointments that were scheduled to occur 6 months from the date of the Encounter, up to a maximum of 20 appointments. The data comes from all [place] treatment [facility]. Appointment Date/Time Appointment Type Appointment Facili ty Name Mar 14, 2022 08:30 AM [facility] [place] Mar 14, 2022 09:00 AM [facility] Mar 21, 2022 10:[facility] Mar 27, 2022 09:30 AM [facility] Apr 16, 2022 09:30 AM [facility] May 21, 2022 01:00 PM [facility] Social History: Smoking Status (Most current) and Tobacco Use (All prior to encounter date) This section includes the most current, and the historical, smoking and tobacco-related health factors from the [place] facility where the Encounter took place.Current Smoking Status This section includes the most current smoking, or tobacco-related health factor, from the [place] facility where the Encounter took place. Date/Time Current Smoking Status Comment Facility Jul 26, 2020 10:[address] [facility] Tobacco Use History This section includes a history of the smoking, or tobacco- related health factors, that were collected on or before the date of the Encounter. The data comes from the [place] facility where the Encounter took place. Date/Time Smoking Status/Tobacco Use Comment [facility] Jul 26, 2020 10:[address] [facility] Advance Directives: All historical and current Section Date Range: From patient's date of to the date document was created. This section includes ALL of a patient's completed or amended [place] Advance and Rescinded Directives. The entries below indicate that a directive exists for the patient, but an actual copy is not included with this document. The data comes from all [place] facilities. Date Advance Directives Provider Source May 20, 2006 ADVANCE DIRECTIVE BAYLEE SHUKLA [place] Encounter Notes: All associated encounter notes This section contains the clinical notes associated to the Encounter. Date/Time Encounter Note(s) Provider Source Mar 13, 2022 08:54 AM RN PROGRESS NOTE: CATRACHITO TELLEZ [place] [facility] LOCAL TITLE: CCC: CLINICAL TRIAGE [facility] STANDARD TITLE: RN PROGRESS NOTE DATE OF NOTE: MAR 13, 2022@08:54:45 ENTRY DATE: MAR 13, 2022@08:54:45 AUTHOR: CATRACHITO TELLEZ EXP COSIGNER: URGENCY: STATUS: COMPLETED CCC: CLINICAL TRIAGE Has ADDENDA Patient Demographics Patient Name: MART WALSH Patient Primary Address: [address] [place] [address]
[place] [address] Patient Primary Phone: [phone] Patient : 1935 SSN: [id number] Patient Age: 86 Caller Relationship: Self Emergency Contactx: BRIAN CHARLES Emergency Contact Phonex: Triage Summary Nurse Summary: fell on SaturdayFeb 28. Quiroz s been in severe pain. Denies new neurological symptoms. When he called [facility] on Mar 09 was triaged to go t o UC per MIssion ACT. States they would not address the pain and They did not give him pain meds. Requests ''something for pain''. Triaged to see PCP in next 8 hrs. Transferred to [facility] for scheduling at [facility] Advised if cannot be seen at [facility] t o return to ED. States will return to [place] ED if has to but p refers PCP please. Chief Complaint: Back Pain After Injury System WHEN: Within 8 Hours Nurse's Recommendation / WHEN: Within 8 Hours System WHERE: Urgent care center Nurse's Recommendation / WHERE: Urgent [facility] Summary of Actions Referred patient for in-person appt. Other course(s) of action Transferred patient to Sched & Admin-Apt Provided guidance for worsening symptoms: *Estrada r/Patient* advised to call facilities [facility] or seek [facility] medical attention for new or worsening symptoms Clinical Contact Center Codes Clinic/Location: V1 CWM PHONE CCC RN TXCC Triage Complete Triage Note: Phone Triage 13 Mar 2022 12:44:50 +0000 [facility] Demographics 86 y/o Male Results CC: Back Pain After Injury Software suggested: Within 8 Hours Software suggested follow-up location: Urgent c are center Values and Measures Duration of CC: 2 Weeks Positive Responses HPI: back pain, severe, since the injury HPI: back pain, unable to move Negative Responses Denies: HPI: back erythema, worsening, since th e injury Denies: HPI: back injury, within past 3 days Denies: HPI: back pain, developed after lifting something Denies: HPI: leg numbness, bilateral, since the injury Denies: HPI: leg numbness, unilateral, since th e injury Denies: HPI: leg weakness, bilateral, since the injury Denies: HPI: urinary incontinence, onset since the injury Denies: HPI: wound, skin penetration /es/ BLUMA Desmond TELLEZ, RN, BSN CALL CENTER REGISTERED NURSE Signed: 03/13/2022 08:54 Receipt Acknowledged By: * AWAITING SIGNATURE * KATHRYN SALDAÑA 03/13/2022 09:51 /es/ TANYA LUO RN-BC REGISTERED NURSE 03/13/2022 ADDENDUM STATUS: COMPLETED Received transferred call from call center staff . Spoke with and provided him with options for further evaluation of pain complaints. Adrian had been scheduled for telex visit with pcp this morning but it was cancelled by clinic due to provider not available this ludwigora alyce Tovar reports that urgent care facilit y had deferred him to his PCP. Adrian prefers not to go back to ED for assessment at t his time but is interested in being evaluated by [facility] sick call clinic tomorr ow for persisting severe back pain. Author did provide Adrian with sick clini c hours and days of availability. 's ED discharge summary from [facility] is available in PACT rightfax folder /es/ TANYA LUO RN-BC REGISTERED NURSE Signed: 03/13/2022 10:10 Receipt Acknowledged By: * AWAITING SIGNATURE * DAVE MADRID
--- OUTSIDE RECORDS SUMMARY | 2022-04-21 09:23 | XMS_ITS | Encounter Summary ---
:1935 Author Organization [facility] Address [address] [place] [address] Support Name Relationship Address Phone BRIAN CHARLES Unavailable [address] [place] [address] BRIAN CHARLES Unavailable [address] [place] [address] BRIAN CHARLES Unavailable [address] [phone] [place] [address] Insurance Providers: All historical and current Section [...] Number [place]inson ANTHEM MEDIGAP MEDEX Dec 29, [id number] [phone] Anamika WALSH PATIENT BCBS OF CT PLAN C 2001 3 SPEEDY ANTHEM MEDICARE MEDEX Dec 29, [id number] [phone] Anamika WALSH PATIENT BCBS OF CT SUPPLEMEN BRON 2001 3 SPE[place] Dec 29, [id number] [phone] Anamika GONZALES PATIENT SUPPLEMEN BRONZ 2001 4 [place] Dec 29, [id number] [phone] Anamika GONZALES PATIENT SUPPLEMEN BRONZ 2001 4 SPEEDY [place] E BCBS OF MEDICARE PSUED May 31, [id number] [phone] Anamika GONZALES PATIENT MASS SUPPLEMEN O 1999 3 SPEEDY [place] MEDEX BRONZ E BLUE [place]OSS MEDIGAP MEDEX May 31 [id number] [phone] WHEE LER,R PATIENT BLUE [facility] [place] EAST 1999 05 [id number] SPEEDY SHIELD [facility] MEDICARE MEDICARE PART October 29, PART B [id number] [phone] WHEELE R,R PATIENT (WNR) (M) B 2001 RC08 2 SPEEDY MEDICARE MEDICARE PART October 29, PART B [id number] [phone] WHEELE R,R PATIENT (WNR) (M) B 2001 85A 00 SPEEDY MEDICARE MEDICARE PART October 29, PART B [id number] [phone] WHEELE R,R PATIENT (WNR) (M) B 2001 RC08 00 SPEEDY MEDICARE MEDICARE PART October 29, PART B [id number] [phone] WHEELE R,R PATIENT (WNR) (M) B 2001 85A 00 SPEEDY MEDICARE MEDICARE PART October 29, PART B [id number] [phone] WHEELE R,R PATIENT (WNR) (M) B 2001 RC08 00 SPEEDY MEDICARE MEDICARE PART May 31, PART A [id number] [phone] WHEELE R,R PATIENT (WNR) (M) A 1999 RC08 2 SPEEDY MEDICARE MEDICARE PART May 31, PART A [id number] [id number] WHEELE R,R PATIENT (WNR) (M) A 1999 85A 00 SPEEDY MEDICARE MEDICARE PART May 31, PART A [id number] [phone] WHEELE R,R PATIENT (WNR) (M) A 1999 RC08 00 SPEEDY MEDICARE MEDICARE PART May 31, PART A [id number] [id number] WHEELE R,R PATIENT (WNR) (M) A 1999 85A 00 SPEEDY MEDICARE MEDICARE PART May 31, PART A [id number] [id number] WHEELE R,R PATIENT (WNR) (M) A 1999 RC08 00 SPEEDY Selected Encounter This section includes the information on record at [place] for the Encounter. Date/Time Encounter Type Encounter Description Reason Provider Source Mar 15, 2022 03:07 Outpatient Encounter PRIMARY CARE/MEDICINE PM [facility] Encounter [...] 2022 10:30 AM AMBULATORY - REHAB MEDICINE [facility] D Mar 27, 2022 09:30 AM AMBULATORY - MEDICINE [facility] Apr 16, 2022 09:30 AM AMBULATORY MEDICINE [facility] May 21, 2022 01:00 PM AMBULATORY - MEDICINE [facility] Lab Results: +/- 30 days of the [...] Range Comment Apr 13, 2022 07:32 AM [facility] TRANSFERRIN, SERUM Specim en Type: SERUM No comment enter ed. Ordering Provid er: ELEUTERIO ORONA Report Released Date/Time: November 24, 2021 10:36 AM Reporting Lab: [facility] [address] [facility] [address] Performing Lab: [facility] [address] [facility] [address] TRANSFERRIN, SERUM 175 L 200-360 Apr 13, 2022 [facility] HEMOGLOBIN A1C Specimen Type: BLOOD 07:32 AM [...] November 24, 2021 09:54 AM Reporting Lab: [facility] [place] [facility] [address] [facility] [address] Performing Lab: [place] [facility] [place] [facility] [address] [facility] [address] HEMOGLOBIN A1C 6.6 H 4.0-5.6 Apr 13, 2022 07:32 AM [facility] LIPID PANEL FASTING Speci men Type: SERUM No comment enter ed. Ordering Provid er: ELEUTERIO ORONA Report Released Date/Time: November 24, 2021 09:54 AM Reporting Lab: [facility] [place] [facility] [address] [facility] [address] Performing Lab: [facility] [place] [facility] [address] [facility] [address] CHOLESTEROL 104 <7-199 TRIGLYCERIDE 97 0-150 LDL calculated 59 0-129 CHOL/HDL 4.0 HDL CHOLESTEROL 26 L 40-60 Apr 13, 2022 07:32 AM [facility] TSH Specimen Type: SERUM No comment enter ed. Ordering Provid er: ELEUTERIO ORONA Report Released Date/Time: November 24, 2021 09:54 AM Reporting Lab: [facility] [place] [facility] [address] [facility] [address] Performing Lab: [facility] [place] [facility] [address] [facility] [address] TSH 1.43 0.35-5.00 Apr 13, 2022 07:32 AM [facility] LIVER FUNCTION Specimen Type: SERUM No comment enter ed. Ordering Provid er: ELEUTERIO ORONA Report Released Date/Time: November 24, 2021 09:54 AM Reporting Lab: [facility] [place] [facility] [address] [facility] [address] Performing Lab: [facility] [place] [facility] [address] [facility] [address] PROTEIN,TOTAL 6.6 6.0-8.3 ALBUMIN 2.7 L 3.5-5.0 ALKALINE PHOSPHATASE 122 40-150 AST 24 5-34 ALT 43 <6-55 BILIRUBIN, TOTAL 0.4 0.2-1.2 Apr 13, 2022 07:32 [facility] BASIC METABOLIC PANEL Specim en Type: SERUM AM (fasting) No comment enter ed. Ordering Provid er: ELEUTERIO ORONA Report Released Date/Time: November 24, 2021 09:54 AM Reporting Lab: [facility] [address] [facility] [address] Performing Lab: [facility] [address] [facility] [address] UREA NITROGEN 28 H 7-25 GLUCOSE 152 H 65-100 SODIUM 140 135-145 POTASSIUM 4.9 3.5-5.0 CHLORIDE 107 100-110 CO2 21 20-30 CREATININE, Serum 1.33 0.50-1.40 eGFR(CKD-EPI 2020) 52 L >60 Apr 13, 2022 07:32 AM [facility] VITAMIN B12 Specimen Type: SERUM No comment enter ed. Ordering Provid er: ELEUTERIO ORONA Report Released Date/Time: November 24, 2021 10:36 AM Reporting Lab: [address] [address] Performing Lab: [address] [address] VITAMIN B12 313 200-900 Apr 13, 2022 07:32 AM [facility] RETICULOCYTES Specimen Type: BLOOD No comment enter ed. Ordering Provid er: ELEUTERIO ORONA Report Released Date/Time: November 24, 2021 10:36 AM Reporting Lab: [facility] [address] [facility] [address] Performing Lab: [facility] [address] [facility] [address] RETIC % 1.6 0.6-2.0 RETIC, ABS 52.5 30.0-90.0 Ret-He % 33.0 27.9-42.0 Apr 13, 2022 07:32 AM [facility] FERRITIN Specimen Type: SERUM No comment enter ed. Ordering Provid er: ELEUTERIO ORONA Report Released Date/Time: November 24, 2021 10:36 AM Reporting Lab: [facility] [address] [facility] [address] Performing Lab: [address] [place] [address] FERRITIN 526.3 H 20-300 Apr 13, 2022 07:32 AM [facility] IRON & TIBC PANEL Specime n Type: SERUM No comment enter ed. Ordering Provid er: ELEUTERIO ORONA Report Released Date/Time: November 24, 2021 10:36 AM Reporting Lab: [facility] [address] [facility] [address] Performing Lab: [facility] [address] [facility] [address] TIBC 243 204-475 IRON 46 40-160 Transferrin Saturation 18.9 L 20.0-50 .0 Apr 13, 2022 07:32 AM [facility] CBC AND DIFF (AUTO) Speci men Type: BLOOD No comment enter ed. Ordering Provid er: ELEUTERIO ORONA Report Released Date/Time: November 24, 2021 09:54 AM Reporting Lab: [facility] [address] [facility] [address] Performing Lab: [facility] [address] [facility] [address] WBC 13.21 H 4.50-11.00 RBC 3.32 L 4.23-5.66 HGB 10.0 L 12.8-17 HCT 31.1 L 39.2-50.4 MCV 93.7 82-99 MCHC 32.2 30.8-35.1 PLT 544 H 140-360 RDW-CV 14.6 12.0-16.0 [place], Abs 1.34 H 0.30-1.10 MCH 30.1 26.2-32.6 Neut % 54.1 Lymph % 27.0 [place] % 10.1 Eos % 7.5 Baso % [...] Comment Facility Jul 26, 2020 10:43 AM [place]-TOBACCO FORMER USER [facility] Tobacco Use History This section includes a history of the smoking, or tobacco- related health factors, that were collected on or before the date of the Encounter. The data comes from the [place] facility where the Encounter took place. Date/Time Smoking Status/Tobacco Use Comment [facility] it Jul 26, 2020 10:43 AM [place]-TOBACCO QUIT 15 YRS OR [facility] Advance Directives: All historical and current [...] May 20, 2006 ADVANCE DIRECTIVE BAYLEE SHUKLA [facility] Encounter Notes: All associated encounter notes This section contains the clinical notes associated to the Encounter. Date/Time Encounter Note(s) Provider Source Mar 15, 2022 03:07 PM LETTERS: ADAM MATA [facility] LOCAL TITLE: PATIENT LETTER (T) [facility] STANDARD TITLE: LETTERS DATE OF NOTE: MAR 15, 2022@15:07 ENTRY DATE: MAR 15, 2022@15:07:12 AUTHOR: ADAM MATA EXP COSIGNER: URGENCY: STATUS: COMPLETED [facility] Toll Free Number Primary Care Telephone Assistance can be reached at extension [phone] [facility] scheduling can be reac hed at extension [phone] [facility] scheduling can be juancarlos ched at ext [phone] March 15, 2022 MART WALSH [address] [place] [address]. [place] [address] Dear , Our goal at the [facility] is to provide you with quality medical care. We have t ried to reach you, without success, to schedule an appointment. Your Primary Care Nurse requests that you schedu le an appointment to receive your second dose of the two-dose shingles vaccin ation series. Please send a secure electronic message to your Primary Care Team via [employer], OR phone us at (do not press 1 for the PHARMACY, and do not press 2, but instead speak with a [facility] apprenticeship training representative), and ask them to take a secure electronic message to your Primary Care Team. You may also reach us toll-free at . Either way, please give us a good number and time to call you to schedule your check-up appointment. If you have any further questions, or wo uld like more information regarding [place] health care benefits, please call toll free at [email or web address] or [phone]) or [phone] ([phone]), visit the [place] website at [email or web address], or contact your local [place] [facility] Center. Thank you for your service to our nation. We loo k forward to hearing from you within the next two weeks. Sincerely, Your Primary Care Team [facility] [address] [facility] [address] [place] [address] [place] [address] [phone] [facility] [address] [place] [address] [place] [address] [phone] [facility] [address] [facility]st [address] [place] [address] [place] [address] [phone]
--- OUTSIDE RECORDS SUMMARY | 2022-04-21 09:23 | XMS_ITS | Encounter Summary ---
:1935 Author Organization [facility] Address [address] [place] [id number] Support Name Relationship Address Phone BRIAN CHARLES Unavailable [address] [place] [address] BRIAN CHARLES Unavailable [address] [place] [address] BRIAN CHARLES Unavailable [address] [phone] [place] [address] Insurance Providers: All historical and current Section [...] Number Stinson ANTHEM MEDIGAP MEDEX Dec 29, [id number] [phone] Anamika WALSH PATIENT BCBS OF CT PLAN C 2001 3 SPEEDY ANTHEM MEDICARE MEDEX Dec 29, [id number] [phone] Anamika WALSH PATIENT BCBS OF CT SUPPLEMEN BRON 2001 3 SPE[place] E [place] Dec 29, [id number] [phone] Anamika GONZALES PATIENT SUPPLEMEN BRONZ 2001 4 [place] Dec 29, [id number] [phone] Anamika GONZALES PATIENT SUPPLEMEN BRONZ 2001 4 SPEEDY HER[place]IA E BCBS OF MEDICARE PSUED May 31, [id number] [phone] Anamika GONZALES PATIENT [place] SUPPLEMEN O [id number] 3 SPEEDY HERMINIA MEDEX BRONZ E BLUE CROSS MEDIGAP MEDEX May 31, [id number] [phone] WHEE LER,R PATIENT BLUE PLAN [place] EAST 1999 05 [id number] OBERT SHIELD OF E [place] MEDICARE MEDICARE PART October 29, PART B [id number] WHEELE R,R PATIENT (WNR) (M) B 2001 RC08 2 OBERT MEDICARE MEDICARE PART October 29, PART B [id number] [phone] WHEELE R,R PATIENT (WNR) (M) B 2001 85A 00 SPEEDYERT MEDICARE MEDICARE PART October 29, PART B [id number] WHEELE R,R PATIENT (WNR) (M) B 2001 RC08 00 SPEEDYERT MEDICARE MEDICARE PART October 29, PART B [id number] [phone] WHEELE R,R PATIENT (WNR) (M) B 2001 85A 00 OBERT MEDICARE MEDICARE PART October 29, PART B [id number] WHEELE R,R PATIENT (WNR) (M) B 2001 RC08 00 OBERT MEDICARE MEDICARE PART May 31, PART A [id number] WHEELE R,R PATIENT (WNR) (M) A 1999 RC08 2 OBERT MEDICARE MEDICARE PART May 31, PART A [id number] [phone] WHEELE R,R PATIENT (WNR) (M) A 1999 85A 00 OBERT MEDICARE MEDICARE PART May 31, PART A [id number] [phone] WHEELE R,R PATIENT (WNR) (M) A 1999 RC08 00 SPEEDY MEDICARE MEDICARE PART May 31, PART A [id number] [phone] WHEELE R,R PATIENT (WNR) (M) A 1999 85A 00 SPEEDY MEDICARE MEDICARE PART May 31, PART A [id number] [phone] WHEELE R,R PATIENT (WNR) (M) A 1999 RC08 SPEEDY Selected Encounter This section includes the information on record at [place] for the Encounter. Date/Time Encounter Type Encounter Reason Provider Source Description Mar 14, 2022 OFFICE O/P EST PRIMARY ICD-10-CM Z23 CINDY BAER 08:30 AM MINIMAL PROB CARE/MEDICINE Encounter for immunization with Provider Comments: Encounter for immunization (ICD-10-CM Z23.) IHE Encounter Template Text not used by [place] Assessments - Encounter Diagnoses This section includes the primary and secondary diagnoses documented for the Encounter. Date/Time Primary/Secondary Diagnosis Name Provider Source Diagnosis Mar 15, 2022 PRIMARY Encounter for CINDY BAER 03:56 PM immunization Mar 15, 2022 SECONDARY Other specified CINDY BAER [place] 03:56 PM counseling Plan of Treatment: Future Appointments (+ 6 months) and Future Tests (+/- 45 days) The Plan of Treatment section includes future care activities for the patient from all [place] treatmentfacilities. This section includes future appointments and future orders which are active, pending orscheduled.Future Appointments This section includes appointments that were scheduled to occur 6 months from the date of the Encounter, up to a maximum of 20 appointments. The data comes from all [place] treatment facilities. Appointment Date/Time Appointment Type Appointment Facili ty Name Mar 21, 2022 10:30 AM AMBULATORY - REHAB MEDICINE [facility] Mar 27, 2022 09:30 AM AMBULATORY MEDICINE [facility] Apr 16, 2022 09:30 AM AMBULATORY MEDICINE [facility] May 21, 2022 01:00 PM AMBULATORY - MEDICINE [place] Lab Results: +/- 30 days of the encounter This section includes the Chemistry and Hematology Lab Results on record with [place] for the patient. Radiology Reports and Pathology Reports are provided separately, in subsequent sections.Lab Results This section contains the Chemistry/Hematology Results that were resulted 30 days before or 30 daysafter the date of the Encounter. Date/Time Source Result Type Result - Unit Interpretation Reference Range Comment Apr 13, 2022 07:32 AM [place] TRANSFERRIN, SERUM Specim en Type: SERUM No comment enter ed. Ordering Provid er: ELEUTERIO ORONA Report Released Date/Time: November 24, 2021 10:36 AM Reporting Lab: [facility] [address] [facility] [address] Performing Lab: [facility] [address] [facility] [address] TRANSFERRIN, SERUM 175 L 200-360 Apr 13, 2022 07:32 AM [place] LIPID PANEL FASTING Speci men Type: SERUM No comment enter ed. Ordering Provid er: ELEUTERIO ORONA Report Released Date/Time: November 24, 2021 09:54 AM Reporting Lab: [facility] [place] [facility] [address] [facility] [address] Performing Lab: [facility] [address] [facility] [address] CHOLESTEROL 104 <7-199 TRIGLYCERIDE 97 0-150 LDL calculated 59 0-129 CHOL/HDL 4.0 HDL CHOLESTEROL 26 L 40-60 Apr 13, 2022 [place] HEMOGLOBIN A1C Specimen Type: BLOOD 07:32 AM [...] November 24, 2021 09:54 AM Reporting Lab: [facility] [address] [facility] [address] Performing Lab: [facility] [address] [facility] [facility] [address] HEMOGLOBIN A1C 6.6 H 4.0-5.6 Apr 13, 2022 07:32 AM [place] TSH Specimen Type: SERUM No comment enter ed. Ordering Provid er: ELEUTERIO ORONA Report Released Date/Time: November 24, 2021 09:54 AM Reporting Lab: [facility] [address] [facility] [address] Performing Lab: [facility] [address] [facility] [address] TSH 1.43 0.35-5.00 Apr 13, 2022 07:32 [place] BASIC METABOLIC PANEL Specim en Type: SERUM AM (fasting) No comment enter ed. Ordering Provid er: ELEUTERIO ORONA Report Released Date/Time: November 24, 2021 09:54 AM Reporting Lab: [facility] [address] [facility] [address] Performing Lab: [facility] [address] [facility] [address] UREA NITROGEN 28 H 7-25 GLUCOSE 152 H 65-100 SODIUM 140 135-145 POTASSIUM 4.9 3.5-5.0 CHLORIDE 107 100-110 CO2 21 20-30 CREATININE, Serum 1.33 0.50-1.40 eGFR(CKD-EPI 2020) 52 L >60 Apr 13, 2022 07:32 AM [place] LIVER FUNCTION Specimen Type: SERUM No comment enter ed. Ordering Provid er: ELEUTERIO ORONA Report Released Date/Time: November 24, 2021 09:54 AM Reporting Lab: [facility] [address] [facility] [address] Performing Lab: [address] [address] PROTEIN,TOTAL 6.6 6.0-8.3 ALBUMIN 2.7 L 3.5-5.0 ALKALINE PHOSPHATASE 122 40-150 AST 24 5-34 ALT 43 <6-55 BILIRUBIN, TOTAL 0.4 0.2-1.2 Apr 13, 2022 07:32 AM [place] RETICULOCYTES Specimen Type: BLOOD No comment enter ed. Ordering Provid er: ELEUTERIO ORONA Report Released Date/Time: November 24, 2021 10:36 AM Reporting Lab: [facility] [address] [facility] [address] Performing Lab: [facility] [address] [facility] [address] RETIC % 1.6 0.6-2.0 RETIC, ABS 52.5 30.0-90.0 Ret-He % 33.0 27.9-42.0 Apr 13, 2022 07:32 AM [place] FERRITIN Specimen Type: SERUM No comment enter ed. Ordering Provid er: ELEUTERIO ORONA Report Released Date/Time: November 24, 2021 10:36 AM Reporting Lab: [facility] [address] [facility] [address] Performing Lab: [address] [address] FERRITIN 526.3 H 20-300 Apr 13, 2022 07:32 AM [place] VITAMIN B12 Specimen Type: SERUM No comment enter ed. Ordering Provid er: ELEUTERIO ORONA Report Released Date/Time: November 24, 2021 10:36 AM Reporting Lab: [facility] [address] [facility] [address] Performing Lab: [facility] [address] [facility] [address] VITAMIN B12 313 200-900 Apr 13, 2022 07:32 AM [place] IRON & TIBC PANEL Specime n Type: SERUM No comment enter ed. Ordering Provid er: ELEUTERIO ORONA Report Released Date/Time: November 24, 2021 10:36 AM Reporting Lab: [facility] [address] [facility] [address] Performing Lab: [address] [address] TIBC 243 204-475 IRON 46 40-160 Transferrin Saturation 18.9 L 20.0-50 .0 Apr 13, 2022 07:32 AM [place] CBC AND DIFF (AUTO) Speci men Type: BLOOD No comment enter ed. Ordering Provid er: ELEUTERIO ORONA Report Released Date/Time: November 24, 2021 09:54 AM Reporting Lab: [facility] [address] [facility] [address] Performing Lab: [facility] [address] [facility] [address] WBC 13.21 H 4.50-11.00 RBC 3.32 L 4.23-5.66 HGB 10.0 L 12.8-17 HCT 31.1 L 39.2-50.4 MCV 93.7 82-99 MCHC 32.2 30.8-35.1 PLT 544 H 140-360 RDW-CV 14.6 12.0-16.0 Ziebach, Abs 1.34 H 0.30-1.10 MCH 30.1 26.2-32.6 Neut % 54.1 Lymph % 27.0 [place] % 10.1 Eos % 7.5 Baso % 0.5 Neut, Abs 7.14 2.20-7.60 Lymph, Abs 3.57 H 1.00-3.20 Eos, Abs 0.99 H 0.03-0.44 Baso, Abs 0.07 0.01-0.13 Immature Gran % 0.8 Immature Gran, Abs 0.10 H 0.00-0.06 Vital Signs: All taken on the encounter date This section contains inpatient and outpatient Vital Signs collected on the date of the Encounter. Date/Time Temperature Pulse Blood Respiratory SP02 Pain Height Weight Ahsan dy Source Pressure Rate Mass Index Mar 14 148/63 20 /min 96 % 2021 10:24 /min mm[Hg] IELD AM Immunizations: All administered on the encounter date This section contains immunizations associated to the Encounter. Immunization Series Date Issued Reaction Comments INFLUENZA VACCINE, QUADRIVALENT, ADJUVANTED Mar 14 ZOSTER RECOMBINANT 2 Mar 14, 2022 Social History: Smoking Status (Most current) and Tobacco Use (All prior to encounter date) This section includes the most current, and the historical, smoking and tobacco-related health factors from the [place] facility where the Encounter took place.Current Smoking Status This section includes the most current smoking, or tobacco-related health factor, from the [place] facility where the Encounter took place. Date/Time Current Smoking Status Comment Facility November 24, 2021 09:00 AM VA-TOBACCO FORMER USER [facility] Tobacco Use History This section includes a history of the smoking, or tobacco- related health factors, that were collected on or before the date of the Encounter. The data comes from the [place] facility where the Encounter took place. Date/Time Smoking Status/Tobacco Use Comment [facility] November 24, 2021 09:00 AM VA-TOBACCO QUIT 15 YRS OR [place] MORE Jul 16, 2018 10:34 AM VA-TOBACCO FORMER USER [facility] Jul 16, 2018 10:34 AM VA-TOBACCO QUIT 15 YRS OR [place] MORE Aug 16, 2017 09:44 AM QUIT TOBACCO USE > 7 YEARS [place] A[place] vet quit 30 years ago Sep 13, 2016 02:56 PM QUIT TOBACCO USE > 7 YEARS [place] A[place] quit 30 years ago Jul 25, 2015 12:44 PM QUIT TOBACCO USE > 7 YEARS [place] AGO Feb 05, 2005 01:52 PM HISTORY OF SMOKING [facility] IE Patient states he quit smoking 1 8 years ago. Sep 27, 2003 08:09 AM HISTORY OF SMOKING SHERRELL CHAUDHARY stopped tobacco 20 years ago May 25, 2002 08:00 AM HISTORY OF SMOKING SHERRELL CHAUDHARY Stopped tobacco 16 years ago Sep 26, 2001 11:28 AM QUIT TOBACCO USE > 7 YEARS AGO Jan 24, 2001 09:14 AM HISTORY [...] this document. The data comes from all [place] facilities. Date Advance Directives Provider Source May 20, 2006 ADVANCE DIRECTIVE GAYLABAYLEE JAKE Encounter Notes: All associated encounter notes This section contains the clinical notes associated to the Encounter. Date/Time Encounter Note(s) Provider Source Mar 14, 2022 04:26 PM PRIMARY CARE NOTE: CINDY BAER LOCAL TITLE: WALK-IN NOTE PRIMARY CARE (T) STANDARD TITLE: PRIMARY CARE NOTE DATE OF NOTE: MAR 14, 2022@16:26 ENTRY DATE: MAR 14, 2022@16:27:07 AUTHOR: CINDY BAER EXP COSIGNER: URGENCY: STATUS: COMPLETED <====Click to Start Nurse Data: 86year old MALE reports to Primary Care clinic for Walk-In visit. 's PCP is SANDEEP KAPADIA, last visit wi th PCP was , next visit scheduled for . Today Vet walks in to clinic with compla int of persisting back pain since fall on 02/28/2022. Last recorded Vital Signs are: Temperature:97.9 F [36.6 C] (11/24/2021 09:27) Pulse:84 (03/14/2022 10:24) Blood Pressure:148/63 (03/14/2022 10:24) Respiration:20 (03/14/2022 10:24) Pain:8 (11/24/2021 09:27) Vet reports current allergies are:Remote Allergy Data No Remote Allergy/ADR Data available for this pa tient Current Medications from Active Med list include : Active Outpatient Medications (including Supplie s): Active Outpatient Medications Status 1) ACCU-CHEK GUIDE (GLUCOSE) TEST STRIP USE 1 ST RIP TO ACTIVE TEST BLOOD SUGARS ONCE DAILY NEEDED [NEW YEHUDA HAILEY OF TEST STRIP TO USE WITH GUIDE ME METER] 2) ATORVASTATIN CALCIUM 80MG TAB TAKE ONE-HALF T ABLET BY ACTIVE MOUTH ONCE DAILY FOR CHOLESTEROL 3) DILTIAZEM (EQV-TIAZAC) 240MG 24HR CAP TAKE ON E ACTIVE (S) CAPSULE BY MOUTH ONCE DAILY 4) DOXAZOSIN MESYLATE 2MG TAB TAKE ONE TABLET BY MOUTH ACTIVE ONCE DAILY 5) FUROSEMIDE 20MG TAB TAKE ONE TABLET BY MOUTH EVERY ACTIVE DAY TO REMOVE FLUID/CONTROL BLOOD PRESSURE 6) LIDOCAINE 5% PATCH APPLY 1 PATCH TOPICALLY ON CE DAILY ACTIVE NEEDED (LEAVE PATCH ON FOR 12 HOURS, THEN RE MOVE PATCH) 7) LORATADINE 10MG TAB TAKE ONE TABLET BY MOUTH ONCE ACTIVE DAILY NEEDED FOR ALLERGY 8) METFORMIN HCL 500MG TAB TAKE ONE TABLET BY MO UTH ACTIVE TWICE DAILY FOR DIABETES 9) METOPROLOL TARTRATE 25MG TAB TAKE ONE TABLET BY MOUTH ACTIVE TWICE DAILY FOR BLOOD PRESSURE/HEART 10) MOMETASONE FUROATE 220MCG ORAL INHL 60 INHAL E 2 PUFFS ACTIVE BY MOUTH TWICE DAILY --RINSE MOUTH AFTER EACH U SE 11) OMEPRAZOLE 20MG CAP,EC TAKE ONE CAPSULE BY M OUTH ACTIVE DAILY 12) OXYCODONE HCL 5MG/APAP 325MG TAB TAKE 1 TABL ET BY ACTIVE MOUTH TWICE DAILY NEEDED FOR PAIN STOP TRAMA DOL WHILE TAKING PERCOCET 13) PSYLLIUM SF ORAL PWD TAKE 2 TEASPOONFULS BY MOUTH ACTIVE ONCE DAILY NEEDED (MIX WITH AT LEAST 8OZ. OF WATER OR OTHER FLUID) 14) SIMVASTATIN 40MG TAB TAKE ONE-HALF TABLET BY MOUTH AT HOLD BEDTIME 15) TRAMADOL HCL 50MG TAB TAKE ONE TABLET BY YANN TH TWICE ACTIVE DAILY 16) VALSARTAN 320MG TAB TAKE ONE TABLET BY MOUTH ONCE ACTIVE DAILY *THIS IS A HIGHER DOSE* 17) ZAFIRLUKAST 20MG TAB TAKE ONE TABLET BY MOUT H TWICE ACTIVE DAILY Active Non-VA Medications Status 1) Non-VA ASPIRIN 81MG EC TAB 81MG BY MOUTH ACTI VE 2) Non-VA MULTIVITAMIN/MINERALS CAP/TAB 1 TABLET BY ACTIVE MOUTH 3) Non-VA OTHER CAP/TAB EITHER CELEBREX,NAPROSYN OR ACTIVE IBUPROFEN TWICE DAILY 4) Non-VA OTHER CAP/TAB NEXIUM 40MG DAILY ACTIVE 21 Total Medications Action: Author spoke with and he reports that he had fallen at home on 02/28/2022 and struck his head and was tr ansported to [facility] ED for assessment. [place] reports that at discharge he was provided with 5 day supply of percocet but he made the medication s upply of 14 tablets last longer than 5 days and reports that the pa in has continued beyond the supply of medication and he would like assistance with pain management. Duncan sobiaora reports that he does continue to take tramadol daily that is prescrib ed by pcp but that it is not effective in managing his back pain. Krystle cantu notes that is walking with a standard cane that he reports borrowing from a neighbor and does have difficulty changing position and ambulat ing while displaying facial non verbal cues for pain. [place] reports that at time of t his appt while seated on exam table he is at 5/10 pain. report s that his homecare physical therapist recommended he inquire about receiving a TENS un it for use at home to assist with managing pain. Reminders Diabetic Eye Exam November 06 DM/PVD/ESRD Foot Exam May 31 Falls & Incontinence Screen DUE NOW Home Telehealth ([facility]) Referral DUE NOW Relationship Health & Safety Screen Jul 26 Influenza Immunization DUE NOW Medication Reconciliation DUE NOW Td / Tdap Immunization Jul 18 Herpes Zoster (Shingles) Vaccine Jan 19 COVID-19 Immunization Booster DUE NOW Response: Author presented [place] and his sympt oms to sick call provider for evaluation. Herpes Zoster (Shingles) Vaccine: The patient received recombinant zoster vaccine (RZV) 0.5 ml IM in Right deltoid. 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 Influenza Immunization: The patient was given the influenza VIS which l ists the benefits and side effects of the vaccine and which reviews the ri sks of not receiving the flu vaccine. The VIS was reviewed with the patient and they were given an opportunity to ask questions. The patient was p rovided education on how to decrease the risk of influenza infection inc luding social distancing and use of good hand hygiene. The patient denied an y prior severe reaction to the flu vaccine or its components. The patient gave verbal consent to receive the vaccine. The seasonal influenza vaccine VIS given to the patient: VIS version date Jan. The patient received seasonal influenza vaccine today - Influenza, Quadrivalent, Adjuvanted (Fluad) 0.5 ml IM toda y in Left Deltoid. 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 Td / Tdap Immunization: Other precaution: Comment: [place] received his flu vaccine and 2 nd shingrix vaccines today. Deferring Tetanus vaccine to future offi ce visit. 20 min spent with [place]. Relationship Health & Safety Screen: Screening is not completed at this time due to: Other: Reason: [place] lives alone and is not currentl y in an intimate relationship. /es/ CARMINE LUON RN-BC REGISTERED NURSE Signed: 03/15/2022 15:56
--- OUTSIDE RECORDS SUMMARY | 2022-04-21 09:23 | XMS_ITS | Encounter Summary ---
:1935 Author Organization [facility] rs Address [address] [place] [address] Support Name Relationship Address Phone BRIAN CHARLES Unavailable [address] [place] [address] BRIAN CHARLES Unavailable [address] [place] [address] BRIAN CHARLES Unavailable [address] [phone] [place] [address] Insurance Providers: All historical and current Section [...] Number [place] ANTHEM MEDIGAP MEDEX Dec 29, [id number] [phone] Anamika WALSH PATIENT BCBS OF CT PLAN C 2001 3 SPEEDY ANTHEM MEDICARE MEDEX Dec 29, [id number] [phone] Anamika WALSH PATIENT BCBS OF CT SUPPLEMEN BRON 2001 3 SPE[place] E [place] MED[place] Dec 29, [id number] [phone] Anamika GONZALES PATIENT SUPPLEMEN BRONZ [id number] SPEED[place] E BCBS [place] MEDICARE MEDEX Dec 29, [id number] [phone] Anamika GONZALES PATIENT SUPPLEMEN BRONZ 2001 4 SPEEDY HER[place] E BCBS OF MEDICARE PSUED May 31, [id number] [phone] Anamika GONZALES PATIENT [place] SUPPLEMEN O [id number] 3 SPEEDY HERMINIA MEDEX BRONZ E [place]UE [place] MEDIGAP MEDEX May 31, [id number] [phone] WHEE LER,R PATIENT [facility] Desmond MESA 1999 05 [id number] OBERT SHIELD OF E [place] MEDICARE MEDICARE PART October 29, PART B [id number] [phone] WHEELE R,R PATIENT (WNR) (M) B 2001 RC08 2 OBERT MEDICARE MEDICARE PART October 29, PART B [id number] [phone] WHEELE R,R PATIENT (WNR) (M) B 2001 85A 00 OBERT MEDICARE MEDICARE PART October 29, PART B [id number] [phone] WHEELE R,R PATIENT (WNR) (M) B 2001 RC08 00 [place] MEDICARE MEDICARE PART October 29, PART B [id number] [phone] WHEELE R,R PATIENT (WNR) (M) B 2001 85A 00 [place] MEDICARE MEDICARE PART October 29, PART B [id number] [phone] WHEELE R,R PATIENT (WNR) (M) B 2001 RC08 00 OBERT MEDICARE MEDICARE PART May 31, PART A [id number] [phone] WHEELE R,R PATIENT (WNR) (M) A 1999 RC08 2 OBERT MEDICARE MEDICARE PART May 31, PART A [id number] [phone] WHEELE R,R PATIENT (WNR) (M) A 1999 85A 00 OBERT MEDICARE MEDICARE PART May 31, PART A [id number] [phone] WHEELE R,R PATIENT (WNR) (M) A 1999 RC08 00 [facility] MEDICARE MEDICARE PART May 31, PART A [id number] [phone] WHEELE R,R PATIENT (WNR) (M) A 1999 85A 00 [place] MEDICARE MEDICARE PART May 31, PART A [id number] [phone] WHEELE R,R PATIENT (WNR) (M) A 1999 RC08 00 SPEEDY Selected Encounter This section includes the information on record at [place] for the Encounter. Date/Time Encounter Type Encounter Reason Provider Source Description Mar 14, 2022 OFFICE O/P EST PRIMARY ICD-10-CM M54.50 DAVE VERDUZCO 09:00 AM LOW 20-29 MIN CARE/MEDICINE Low back pain, A unspecified with Provider Comments: Low back pain, unspecified IHE Encounter Template Text not used by [place] Assessments - Encounter Diagnoses This section includes the primary and secondary diagnoses documented for the Encounter. Date/Time Primary/Secondary Diagnosis Name Provider Source Diagnosis Mar 14, 2022 PRIMARY Low back pain, DAVE VERDUZCO Song 10:07 AM unspecified Plan of Treatment: Future Appointments (+ 6 months) and Future Tests (+/- 45 days) The Plan of Treatment section includes future care activities for the patient from all [place] treatmentfacilities. This section includes future appointments and future orders which are active, pending orscheduled.Future Appointments This section includes appointments that were scheduled to occur 6 months from the date of the Encounter, up to a maximum of 20 appointments. The data comes from all [place] treatment facilities. Appointment Date/Time Appointment Type Appointment Facili ty Name Mar 21, 2022 10:30 AM AMBULATORY - REHAB MEDICINE [facility] Mar 27, 2022 09:30 AM AMBULATORY - MEDICINE [facility] Apr 16, 2022 09:30 AM AMBULATORY MEDICINE [facility] May 21, 2022 01:00 PM AMBULATORY - MEDICINE [place] Lab Results: +/- 30 days of the encounter This section includes the Chemistry and Hematology Lab Results on record with [place] for the patient. Radiology Reports and Pathology Reports are provided separately, in subsequent sections.Lab Results This section contains the Chemistry/Hematology Results that were resulted 30 days before or 30 daysafter the date of the Encounter. Date/Time Source Result Type Result - Unit Interpretation Reference Range Comment Apr 13, 2022 07:32 AM [place] TRANSFERRIN, SERUM Specim en Type: SERUM No comment enter ed. Ordering Provid er: ELEUTERIO ORONA Report Released Date/Time: November 24, 2021 10:36 AM Reporting Lab: [facility] [address] [facility] [address] Performing Lab: [facility] [address] [facility] [address] TRANSFERRIN, SERUM 175 L 200-360 Apr 13, 2022 [place] HEMOGLOBIN A1C Specimen Type: BLOOD 07:32 AM [...] November 24, 2021 09:54 AM Reporting Lab: [facility] [place] [facility] [address] [facility] [address] Performing Lab: [facility] [place] [facility] [address] [facility] [address] HEMOGLOBIN A1C 6.6 H 4.0-5.6 Apr 13, 2022 07:32 AM [place] LIPID PANEL FASTING Speci men Type: SERUM No comment enter ed. Ordering Provid er: ELEUTERIO ORONA Report Released Date/Time: November 24, 2021 09:54 AM Reporting Lab: [facility] [place] [facility] [address] [facility] [address] Performing Lab: [facility] [address] [facility] [address] CHOLESTEROL 104 <7-199 TRIGLYCERIDE 97 0-150 LDL calculated 59 0-129 CHOL/HDL 4.0 HDL CHOLESTEROL 26 L 40-60 Apr 13, 2022 07:32 AM [place] TSH Specimen Type: SERUM No comment enter ed. Ordering Provid er: ELEUTERIO ORONA Report Released Date/Time: November 24, 2021 09:54 AM Reporting Lab: [facility] [place] [facility] [address] [facility] [address] Performing Lab: [facility] [place] [facility] [address] [facility] [address] TSH 1.43 0.35-5.00 Apr 13, 2022 07:32 AM [place] LIVER FUNCTION Specimen Type: SERUM No comment enter ed. Ordering Provid er: ELEUTERIO ORONA Report Released Date/Time: November 24, 2021 09:54 AM Reporting Lab: [facility] [address] [facility] [address] Performing Lab: [facility] [address] [facility] [address] PROTEIN,TOTAL 6.6 6.0-8.3 ALBUMIN 2.7 L 3.5-5.0 ALKALINE PHOSPHATASE 122 40-150 AST 24 5-34 ALT 43 <6-55 BILIRUBIN, TOTAL 0.4 0.2-1.2 Apr 13, 2022 07:32 [place] BASIC METABOLIC PANEL Specim en Type: SERUM AM (fasting) No comment enter ed. Ordering Provid er: ELEUTERIO ORONA Report Released Date/Time: November 24, 2021 09:54 AM Reporting Lab: [facility] [address] [facility] [address] Performing Lab: [address] [address] [place] NITROGEN 28 H 7-25 GLUCOSE 152 H 65-100 SODIUM 140 135-145 POTASSIUM 4.9 3.5-5.0 CHLORIDE 107 100-110 CO2 21 20-30 CREATININE, Serum 1.33 0.50-1.40 eGFR(CKD-EPI 2020) 52 L >60 Apr 13, 2022 07:32 AM [place] RETICULOCYTES Specimen Type: BLOOD No comment enter ed. Ordering Provid er: ELEUTERIO ORONA Report Released Date/Time: November 24, 2021 10:36 AM Reporting Lab: [facility] [address] [facility] [address] Performing Lab: [facility] [address] [facility] [address] RETIC % 1.6 0.6-2.0 RETIC, ABS 52.5 30.0-90.0 Ret-He % 33.0 27.9-42.0 Apr 13, 2022 07:32 AM [place] VITAMIN B12 Specimen Type: SERUM No comment enter ed. Ordering Provid er: ELEUTERIO ORONA Report Released Date/Time: November 24, 2021 10:36 AM Reporting Lab: [facility] [address] [facility] [address] Performing Lab: [facility] [address] [facility] [address] VITAMIN B12 313 200-900 Apr 13, 2022 07:32 AM [place] IRON & TIBC PANEL Specime n Type: SERUM No comment enter ed. Ordering Provid er: ELEUTERIO ORONA Report Released Date/Time: November 24, 2021 10:36 AM Reporting Lab: [facility] [address] [facility] [address] Performing Lab: [facility] [address] [facility] [address] TIBC 243 204-475 IRON 46 40-160 Transferrin Saturation 18.9 L 20.0-50 .0 Apr 13, 2022 07:32 AM [place] FERRITIN Specimen Type: SERUM No comment enter ed. Ordering Provid er: ELEUTERIO ORONA Report Released Date/Time: November 24, 2021 10:36 AM Reporting Lab: [facility] [address] [facility] [address] Performing Lab: [facility] [address] [facility] [address] FERRITIN 526.3 H 20-300 Apr 13, 2022 07:32 AM [place] CBC AND DIFF (AUTO) Speci men Type: BLOOD No comment enter ed. Ordering Provid er: ELEUTERIO ORONA Report Released Date/Time: November 24, 2021 09:54 AM Reporting Lab: [facility] [address] [facility] [address] Performing Lab: [address] [address] WBC 13.21 H 4.50-11.00 RBC 3.32 L 4.23-5.66 HGB 10.0 L 12.8-17 HCT 31.1 L 39.2-50.4 MCV 93.7 82-99 MCHC 32.2 30.8-35.1 PLT 544 H 140-360 RDW-CV 14.6 12.0-16.0 Jasper, Abs 1.34 H 0.30-1.10 MCH 30.1 26.2-32.6 Neut % 54.1 Lymph % 27.0 Jasper % 10.1 Eos % 7.5 Baso % [...] Source Pressure Rate Mass Index Mar 14 84 148/63 20 /min 96 % 2021 10:24 /min mm[Hg] IELD AM Social History: Smoking Status (Most current) and Tobacco Use (All prior to encounter date) This section includes the most current, and the historical, smoking and tobacco-related health factors from the [place] facility where the Encounter took place.Current Smoking Status This section includes the most current smoking, or tobacco-related health factor, from the [place] facility where the Encounter took place. Date/Time Current Smoking Status Comment Facility November 24, 2021 09:00 AM VA-TOBACCO FORMER USER [facility] Tobacco Use History This section includes a history of the smoking, or tobacco- related health factors, that were collected on or before the date of the Encounter. The data comes from the [place] facility where the Encounter took place. Date/Time Smoking Status/Tobacco Use Comment [facility] November 24, 2021 09:00 AM VA-TOBACCO QUIT 15 YRS OR [facility] Jul 16, 2018 10:34 AM VA-TOBACCO FORMER USER [facility] Jul 16, 2018 10:34 AM VA-TOBACCO QUIT 15 YRS OR [facility] Aug 16, 2017 09:44 AM QUIT TOBACCO USE > 7 YEARS [place] [facility] vet quit 30 years ago Sep 13, 2016 02:56 PM QUIT TOBACCO USE > 7 YEARS [place] quit 30 years ago Jul 25, 2015 12:44 PM QUIT TOBACCO USE > 7 YEARS [place] Feb 05, 2005 01:52 PM HISTORY OF SMOKING SHERRELL CHAUDHARY Patient states he quit smoking 1 8 years ago. Sep 27, 2003 08:09 AM HISTORY OF SMOKING SHERRELL CHAUDHARY stopped tobacco 20 years ago May 25, 2002 08:00 AM HISTORY OF SMOKING SHERRELL CHAUDHARY Stopped tobacco 16 years ago Sep 26, 2001 11:28 AM QUIT TOBACCO USE > 7 YEARS [place] Jan 24, 2001 09:14 AM HISTORY OF [...] this document. The data comes from all [place] facilities. Date Advance Directives Provider Source May 20, 2006 ADVANCE DIRECTIVE GAYLABAYLEE Encounter Notes: All associated encounter notes This section contains the clinical notes associated to the Encounter. Date/Time Encounter Note(s) Provider Source Mar 22, 2022 01:40 PM PRIMARY CARE ADMINISTRATIVE NOTE: MIRA FRAZIER LOCAL TITLE: CONTACT INFO/NON [facility] PROVIDERS & [facility] STANDARD TITLE: PRIMARY CARE ADMINISTRATIVE NOTE DATE OF NOTE: MAR 22, 2022@13:40 ENTRY DATE: MAR 22, 2022@13:40:41 AUTHOR: MIRA BUSTAMANTE EXP COSIGNER: URGENCY: STATUS: COMPLETED DR. MART CHAMPAGNE Internal medicine Address: [address] [place] [address] /es/ MIRA BUSTAMANTE, RN-BC,BSN,MHA REGISTERED NURSE Signed: 03/22/2022 13:43 Mar 22, 2022 01:29 PM NONVA NOTE: MIRA BUSTAMANTE [facility] TITLE: NON-VA MEDICAL RECORD SUMMARY STANDARD TITLE: NONVA NOTE DATE OF NOTE: MAR 22, 2022@13:29 ENTRY DATE: MAR 22, 2022@13:29:37 AUTHOR: MIRA BUSTAMANTE EXP PATRICKIGNER: URGENCY: STATUS: COMPLETED NON [facility] DISCHARGE SUMMARY This data contains relevant information copied & pasted from a NON [facility] source. Efforts are made to ensure congruency between th is note & the original. This note not DOES NOT contain the entirety of t he original. Please see [facility] to view the original no te/document. Place of Service: [facility] ED Admission Date: Jan Discharge Date: Jan Discharged to: Home History of Present Illness HPI Narrative: fell backwards going up the stairs, hit head no LOC, complaining of upper and lower back pain, No neck pain, Patient pushed hi s alert, medics came and picked him up, complaint: fall Onset (ago): minute(s) Fall f rom: standing Place fall occurred: home Loss of consciousness: none Prolonged down time: yes Symptoms prior to fall: none Related Data Reports system reviewed and no additional compla ints, except as documented, Denies dizziness and Denies Sensory deficit (Damaso ro) Psychiatric: Denies anxiety Advance Directives: Yes Advance Directives on File: Yes Advance Directives Date on File: 08/11/21 ReevaIuation # 1: no fractures. Will have the patient evaluated by PT and social human services assistants Time: 12:24 Reevaluation #2: seen and cleared by social human services assistants will de home . Will de on naprosyn and percocet Time: 13:23 MDM - Fall Imaging Data >> CT scan - head: Radiologist's impression: IMPRESSION Chronic changes noted. No intracrania l hemorrhage. >> thoracic, lumbar and right ribs: Radiologist' s impression: FINDINGS: Chest: There is blunting of the left costophreni c angle. There is minor fibrotic change in the lungs. No focal c onsolidations. The heart and pulmonary vessels are normal. No pneumothorax. Right RIBS: The right ribs are intact Thoracic spine: There is osteopenia and degenera tive change in the thoracic spIne. There appears to be slight angulation, at the thoracolumbar junction not clearly evaluated for technical rsasons. I d o not see an acute fracture but there may be chronic wedging at this junctio n. 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 chronicity uncertain. I cannot exclude compression deformities here, Aorta is atheroscleratic. >> XR/XR lumbar spine 2-3V Chronic. IMPRESSION: Compression deformities L2 and L3 likely chronic but age uncertain. Discharge Plan Contusion of back, Chest wall contusion Patient Disposition: Home, Self-Care Referrals: Mart Champagne MD [Primary Care Provider] - 5 day s Upcoming Appointments: 03/27/2022 09:30 CWM/NO/PAIN 2 05/21/2022 13:00 CWM/SO/PACT EIGHT WH SENT TO SCANNING /es/ MIRA BUSTAMANTE, RN-BC,BSN,MHA REGISTERED NURSE Signed: 03/22/2022 13:38 Mar 14, 2022 10:42 AM NURSE PRACTITIONER NOTE: [facility] LOC[facility] TITLE: NURSE PRACTIONER/SICK VISIT STANDARD TITLE: NURSE PRACTITIONER NOTE DATE OF NOTE: MAR 14, 2022@10:42 ENTRY DATE: MAR 14, 2022@10:42:23 AUTHOR: DAVE VERDUZCO COSIGNER: URGENCY: STATUS: COMPLETED SICK CALL VISIT MART WALSH, is a 86 yo WHITE MALE [place] who presents at [facility] sick call with: Low back pain HPI: 86-year-old male with HTN, NIDDM, HLD, G ERD, asthma, and chronic bilateral knee pain on trama dol comanaged with an outside PCP, Dr. Mart Sheets presented to the sick call clinic with persisten t low back pain that is worse with sitting. The patient reports a fall backwards without head strike on 02/28 after which she was seen at [facility]. 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 Rib x-rays were negative for acute fracture. Home physical therapy was arranged and the patient has been participating in that. He informs that physical therapy recommended a TENS unit to help with symptomatic relief. No lower extremity weakness or numbness/tingling . No concerning symptoms of priapism, urinary retention, or bowel/bladder in continence. The patient was originally p rescribed Percocet on discharge from the ED which he states did relieve his pain. He has since been t aking tramadol and naproxen with no relief. On exam, there is mild point tenderness of L2-L3 without radiation. No painful inspiration. Straight leg raise without difficul ty. Bends to touch knees with some difficulty due to pain. [facility] PCP: SANDEEP KAPADIA VITAL SIGNS: Temperature 97.9 F [36.6 C] (11/24/2021 09:27) Blood Pressure 148/63 (03/14/2022 10:24) Pulse 84 (03/14/2022 10:24) Respiration 20 (03/14/2022 10:24) Pain 8 (11/24/2021 09:27) BMI BMI: 33.6 Weight 240.2 lb [108.95 kg] (11/24/2021 09:27) Pulse Oximetry 96% (03/14/2022 10:24) Review of Systems: A 12 point review of systems is negative except as noted in the HPI. EXAMINATION General: Well-appearing older in mild di stress. Mental Status: Alert and oriented x4. Head: Normocephalic. Eyes: PERRLA. EOMI. Anicteric sclerae. Conjuncti vae noninjected. Ext/Back: Normal spinal alignment without step-o ffs or obvious deformity. Mild point tenderness in the area of L2-L3 with out radiation. Neuro: CN II through XII grossly intact. Normal speech. Normal gait. Psych: Normal mood and affect. Normal judgment. ASSESSMENT/PLAN Low back pain: Negative ED work-up immediately f ollowing the injury. Now participating in home physical therapy who recom mends a tens unit. Physical therapy referral placed for TENS. In the interim, will prescribe Lidoderm patch and a short course of Percoc et. Warnings provided to stop tramadol while taking Percocet. No use of heavy equipment; avoid drivi ng. >> MEDICATIONS Reviewed with >> CLINICAL REMINDERS NOT ADDRESSED d/t SICK TAN L Defer to PCP/PACT Team FOLLOW UP: RTC Below & sooner PRN UPCOMING APPOINTMENTS: 05/21/2022 13:00 CWM/SO/PACT EIGHT WH 20 minutes spent in patient evaluation, data rev iew, patient education, and care coordination. /selam/ DAVE VERDUZCO NP NURSE PRACTITIONER Signed: 03/14/2022 10:49 Mar 14, 2022 10:07 AM ACCOUNTING OF DISCLOSURES NOTE: KAVEH VERDUZCO [place] LOCAL TITLE: STATE PRESCRIPTION DRUG MONITORING PROGRAM STANDARD TITLE: ACCOUNTING OF DISCLOSURES NOTE DATE OF NOTE: MAR 14, 2022@10:07:14 ENTRY DATE: MAR 14, 2022@10:07:14 AUTHOR: DAVE VERDUZCO EXP COSIGNER: URGENCY: STATUS: COMPLETED This PDMP query was submitted by Dave Verduzco . The clinical justification for this PDMP query i s to review controlled substances prescribed outside of the [facility], and any additional information that may become available, as an important compo nent of standard clinical care, and in accordance with [facility] policy. Patient information was shared with the PDMP Aj [employer]. Prescription(s) filled outside the [facility] in the las t 90 days are noted. However, they do not raise significan t safety concerns and do not influence the treatment plan at this time. /selam/ DAVE VERDUZCO NP NURSE PRACTITIONER Signed: 03/14/2022 10:07
--- OUTSIDE RECORDS SUMMARY | 2022-04-21 09:23 | XMS_ITS ---
:1935 Author Organization [facility] Address [address] [place] [address] Support Name Relationship Address Phone BRIAN CHARLES Unavailable [address] [place] [address] BRIAN CHARLES Unavailable [address] [place] [address] BRIAN CHARLES Unavailable [address] [phone] [place] [address] Insurance Providers: All historical and current Section [...] Number Stinson ANTHEM MEDIGAP MEDEX Dec 29, [id number] [phone] Anamika WALSH PATIENT BCBS OF CT PLAN C 2001 3 SPEEDY ANTHEM MEDICARE MEDEX Dec 29, [id number] [phone] Anamika WALSH PATIENT BCBS OF CT SUPPLEMEN BRON 2001 3 SPE[place] MED[place] Dec 29, [id number] [phone] Anamika GONZALES PATIENT SUPPLEMEN BRONZ 2001 4 [place] Dec 29, [id number] [phone] Anamika GONZALES PATIENT SUPPLEMEN BRONZ 2001 4 SPEEDY [place] E BCBS OF MEDICARE PSUED May 31, [id number] [phone] Anamika GONZALES PATIENT [place] SUPPLEMEN O 1999 3 SPEEDY [place] MEDEX BRONZ E BLUE CROSS MEDIGAP MEDEX May 31 [id number] [phone] WHEE LER,R PATIENT BLUE [facility] [place] EAST 1999 05 [id number] 4 SPEEDY SHIELD [facility] MEDICARE MEDICARE PART October 29, PART B [id number] WHEELE R,R PATIENT (WNR) (M) B 2001 RC08 2 SPEEDY MEDICARE MEDICARE PART October 29, PART B [id number] WHEELE R,R PATIENT (WNR) (M) B 2001 85A 00 SPEEDY MEDICARE MEDICARE PART October 29, PART B [id number] WHEELE R,R PATIENT (WNR) (M) B 2001 RC08 00 SPE[place]Y MEDICARE MEDICARE PART October 29, PART B [id number] [phone] WHEELE R,R PATIENT (WNR) (M) B 2001 85A 00 SPE[place]Y MEDICARE MEDICARE PART October 29, PART B [id number] WHEELE R,R PATIENT (WNR) (M) B 2001 RC08 00 SPE[place]Y MEDICARE MEDICARE PART May 31, PART A [id number] [phone] WHEELE R,R PATIENT (WNR) (M) A 1999 RC08 2 SPEEDY MEDICARE MEDICARE PART May 31, PART A [id number] [id number] WHEELE R,R PATIENT (WNR) (M) A 1999 85A 00 SPEEDY MEDICARE MEDICARE PART May 31, PART A [id number] WHEELE R,R PATIENT (WNR) (M) A 1999 RC08 00 SPE[place]Y MEDICARE MEDICARE PART May 31, PART A [id number] [id number] WHEELE R,R PATIENT (WNR) (M) A 1999 85A 00 SPEEDY MEDICARE MEDICARE PART May 31, PART A [id number] [phone] WHEELE R,R PATIENT (WNR) (M) A 1999 RC08 00 SPEEDY Selected Encounter This section includes the information on record at [place] for the Encounter. Date/Time Encounter Type Encounter Description Reason Provider Source Mar 14, 2022 03:33 Outpatient Encounter PRIMARY CARE/MEDICINE PM IHE Encounter Template Text not used by MT Plan of Treatment: Future Appointments (+ 6 [...] 2022 10:30 AM AMBULATORY - REHAB MEDICINE [facility] D Mar 27, 2022 09:30 AM [facility] Apr 16, 2022 09:30 AM [facility] May 21, 2022 01:00 PM AMBULATORY - MEDICINE [place] Lab Results: +/- 30 days of the [...] Range Comment Apr 13, 2022 07:32 AM [place] TRANSFERRIN, SERUM Specim en Type: SERUM No comment enter ed. Ordering Provid er: ELEUTERIO ORONA Report Released Date/Time: November 24, 2021 10:36 AM Reporting Lab: [facility] [address] [facility] [address] Performing Lab: [facility] [address] [facility] [address] TRANSFERRIN, SERUM 175 L 200-360 Apr 13, 2022 07:32 AM [place] LIPID PANEL FASTING Speci men Type: SERUM No comment enter ed. Ordering Provid er: ELEUTERIO ORONA Report Released Date/Time: November 24, 2021 09:54 AM Reporting Lab: [facility] [address] [facility] [address] Performing Lab: [facility] [address] [facility] [address] CHOLESTEROL 104 <7-199 TRIGLYCERIDE 97 0-150 LDL calculated 59 0-129 CHOL/HDL 4.0 HDL CHOLESTEROL 26 L 40-60 Apr 13, 2022 07:32 AM [place] LIVER FUNCTION Specimen Type: SERUM No comment enter ed. Ordering Provid er: ELEUTERIO ORONA Report Released Date/Time: November 24, 2021 09:54 AM Reporting Lab: [facility] [address] [facility] [address] Performing Lab: [facility] [address] [facility] [address] PROTEIN,TOTAL 6.6 6.0-8.3 ALBUMIN 2.7 L 3.5-5.0 ALKALINE PHOSPHATASE 122 40-150 AST 24 5-34 ALT 43 <6-55 BILIRUBIN, TOTAL 0.4 0.2-1.2 Apr 13, 2022 [place] HEMOGLOBIN A1C Specimen Type: BLOOD 07:32 AM [...] November 24, 2021 09:54 AM Reporting Lab: [facility] [address] [facility] [address] Performing Lab: [facility] [address] [facility] [address] HEMOGLOBIN A1C 6.6 H 4.0-5.6 Apr 13, 2022 07:32 [place] BASIC METABOLIC PANEL Specim en Type: SERUM AM (fasting) No comment enter ed. Ordering Provid er: ELEUTERIO ORONA Report Released Date/Time: November 24, 2021 09:54 AM Reporting Lab: [facility] [address] [facility] [address] Performing Lab: [facility] [address] [facility] [address] UREA NITROGEN 28 H 7-25 GLUCOSE 152 H 65-100 SODIUM 140 135-145 POTASSIUM 4.9 3.5-5.0 CHLORIDE 107 100-110 CO2 21 20-30 CREATININE, Serum 1.33 0.50-1.40 eGFR(CKD-EPI 2020) 52 L >60 Apr 13, 2022 07:32 AM [place] VITAMIN B12 Specimen Type: SERUM No comment enter ed. Ordering Provid er: ELEUTERIO ORONA Report Released Date/Time: November 24, 2021 10:36 AM Reporting Lab: [facility] [place] [facility] [address] [facility] [address] Performing Lab: [facility] [place] [facility] [address] [facility] [address] VITAMIN B12 313 200-900 Apr 13, 2022 07:32 AM [place] RETICULOCYTES Specimen Type: BLOOD No comment enter ed. Ordering Provid er: ELEUTERIO ORONA Report Released Date/Time: November 24, 2021 10:36 AM Reporting Lab: [facility] [place] [facility] [address] [facility] [address] Performing Lab: [facility] [place] [facility] [address] [facility] [address] RETIC % 1.6 0.6-2.0 RETIC, ABS 52.5 30.0-90.0 Ret-He % 33.0 27.9-42.0 Apr 13, 2022 07:32 AM [place] FERRITIN Specimen Type: SERUM No comment enter ed. Ordering Provid er: ELEUTERIO ORONA Report Released Date/Time: November 24, 2021 10:36 AM Reporting Lab: [facility] [place] [facility] [address] [facility] [address] Performing Lab: [facility] [place] [facility] [address] [facility] [address] FERRITIN 526.3 H 20-300 Apr 13, 2022 07:32 AM [place] TSH Specimen Type: SERUM No comment enter ed. Ordering Provid er: ELEUTERIO ORONA Report Released Date/Time: November 24, 2021 09:54 AM Reporting Lab: [facility] [place] [facility] [address] [facility] [address] Performing Lab: [facility] [address] [facility] [address] TSH 1.43 0.35-5.00 Apr 13, 2022 07:32 AM [place] IRON & TIBC PANEL Specime n Type: SERUM No comment enter ed. Ordering Provid er: ELEUTERIO ORONA Report Released Date/Time: November 24, 2021 10:36 AM Reporting Lab: [facility] [address] [facility] [address] Performing Lab: [facility] [address] [facility] [address] TIBC 243 204-475 IRON 46 40-160 Transferrin Saturation 18.9 L 20.0-50 .0 Apr 13, 2022 07:32 AM [place] CBC AND DIFF (AUTO) Speci men Type: BLOOD No comment enter ed. Ordering Provid er: ELEUTERIO ORONA Report Released Date/Time: November 24, 2021 09:54 AM Reporting Lab: [facility] [address] [facility] [address] Performing Lab: [facility] [address] [facility] [address] WBC 13.21 H 4.50-11.00 RBC 3.32 L 4.23-5.66 HGB 10.0 L 12.8-17 HCT 31.1 L 39.2-50.4 MCV 93.7 82-99 MCHC 32.2 30.8-35.1 PLT 544 H 140-360 RDW-CV 14.6 12.0-16.0 [place], Abs 1.34 H 0.30-1.10 MCH 30.1 26.2-32.6 Neut % 54.1 Lymph % 27.0 [place] % 10.1 Eos % 7.5 Baso % [...] Comment Facility Jul 26, 2020 10:43 AM [place]-TOBACCO [facility] Tobacco Use History This section includes a history of the smoking, or tobacco- related health factors, that were collected on or before the date of the Encounter. The data comes from the [place] facility where the Encounter took place. Date/Time Smoking Status/Tobacco Use Comment [facility] it Jul 26, 2020 10:43 AM [place]-TOBACCO QUIT 15 YRS [facility] Advance Directives: All historical and current Section Date Range: From patient's date of to the date document was created. This section includes ALL of a patient's completed or amended [place] Advance and Rescinded Directives. The entries below indicate that a directive exists for the patient, but an actual copy is not included with this document. The data comes from all [place] facilities. Date Advance Directives Provider Source May 20, 2006 ADVANCE DIRECTIVE BAYLEE SHUKLA [place] Encounter Notes: All associated encounter notes This section contains the clinical notes associated to the Encounter. Date/Time Encounter Note(s) Provider Source Mar 14, 2022 03:33 PM ADMINISTRATIVE NOTE: ADAM MATA [facility] NTRL W[facility] LOCAL TITLE: ADMINISTRATIVE NOTE 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 Either way, leave a good number and time for a call back from [place] to schedule an appointment to [facility] subject P C NURSING care. [X] Letter mailed as a reminder to schedule appo intment. Upcoming Appointments: 03/21/2022 10:30 CWM/SO/PHYSICAL THERAPY P 05/21/2022 13:00 CWM/SO/PACT EIGHT /selam/ [facility] Signed: 03/14/2022 15:41
--- OUTSIDE RECORDS SUMMARY | 2022-04-21 09:23 | XMS_ITS | Encounter Summary ---
:1935 Author Organization [facility] Address [address] [place] [address] Support Name Relationship Address Phone BRIAN CHARLES Unavailable [address] [place] [address] BRIAN CHARLES Unavailable [address] [place] [address] BRIAN CHARLES Unavailable [address] [phone] [place] [address] Insurance Providers: All historical and current Section [...] Number Stinson ANTHEM MEDIGAP MEDEX Dec 29, [id number] [phone] Anamika WALSH PATIENT BCBS OF CT PLAN C 2001 3 SPEEDY ANTHEM MEDICARE MEDEX Dec 29, [id number] [phone] Anamika WALSH PATIENT BCBS OF CT SUPPLEMEN BRON 2001 3 [place] MED[place] Dec 29, [id number] [phone] Anamika GONZALES PATIENT SUPPLEMEN BRONZ 2001 4 SPE[place] Dec 29, [id number] [phone] Anamika GONZALES PATIENT SUPPLEMEN BRONZ 2001 4 SPEEDY HERMINIA E BCBS OF MEDICARE PSUED May 31, [id number] [phone] Anamika GONZALES PATIENT [place] SUPPLEMEN O [id number] 3 SPEEDY HERMIN[place] MEDEX BRONZ E BLUE CROSS MEDIGAP MEDEX May 31, [id number] [phone] WHEE LER,R PATIENT [facility] [place] 1999 05 [id number] 4 OBERT SHIELD OF E [place] MEDICARE MEDICARE PART October 29, PART B [id number] WHEELE R,R PATIENT (WNR) (M) B 2001 RC08 2 [facility] MEDICARE MEDICARE PART October 29, PART B [id number] [phone] WHEELE R,R PATIENT (WNR) (M) B 2001 85A 00 SPEEDY MEDICARE MEDICARE PART October 29, PART B [id number] [phone] WHEELE R,R PATIENT (WNR) (M) B 2001 RC08 00 [place] MEDICARE MEDICARE PART October 29, PART B [id number] [phone] WHEELE R,R PATIENT (WNR) (M) B 2001 85A 00 [place] MEDICARE MEDICARE PART October 29, PART B [id number] [phone] WHEELE R,R PATIENT (WNR) (M) B 2001 RC08 00 SPEEDY MEDICARE MEDICARE PART May 31, PART A [id number] [phone] WHEELE R,R PATIENT (WNR) (M) A 1999 RC08 2 SPE[place] MEDICARE MEDICARE PART May 31, PART A [id number] [phone] WHEELE R,R PATIENT (WNR) (M) A 1999 85A 00 [place] MEDICARE MEDICARE PART May 31, PART A [id number] [phone] WHEELE R,R PATIENT (WNR) (M) A 1999 RC08 00 [place] MEDICARE MEDICARE PART May 31, PART A [id number] [phone] WHEELE R,R PATIENT (WNR) (M) A 1999 85A 00 SPEEDY MEDICARE MEDICARE PART May 31, PART A [id number] [phone] WHEELE R,R PATIENT (WNR) (M) A 1999 RC08 SPEEDY Selected Encounter This section includes the information on record at [facility] for the Encounter. Date/Time Encounter Type Encounter Description Reason Provider Source Mar 14, 2022 09:58 Outpatient Encounter PAIN CLINIC AM IHE Encounter Template Text not used by [facility] Plan of Treatment: Future Appointments (+ 6 months) and Future Tests (+/- 45 days) The Plan of Treatment section includes future care activities for the patient from all [place] treatmentfaecu health medical centerities. This section includes future appointments [...] AMBULATORY - REHAB MEDICINE [facility] D Mar 27, 2022 09:30 AM [facility] Apr 16, 2022 09:30 AM [facility] May 21, 2022 01:00 PM AMBULATORY - MEDICINE [place] Lab Results: +/- 30 days of the encounter This section includes the Chemistry and Hematology Lab Results on record with [place] for the patient. Radiology Reports and Pathology Reports are provided separately, in subsequent sections.Lab Results This section contains the Chemistry/Hematology Results that were resulted 30 days before or 30 daysafter the date of the Encounter. Date/Time Source Result Type Result - Unit Interpretation Reference Range Comment Apr 13, 2022 07:32 AM [place] TRANSFERRIN, SERUM Specim en Type: SERUM No comment enter ed. Ordering Provid er: ELEUTERIO ORONA Report Released Date/Time: November 24, 2021 10:36 AM Reporting Lab: [facility] [address] [facility] [address] Performing Lab: [facility] [address] [facility] [address] TRANSFERRIN, SERUM 175 L 200-360 Apr 13, 2022 [place] HEMOGLOBIN A1C Specimen Type: BLOOD 07:32 AM [...] November 24, 2021 09:54 AM Reporting Lab: [facility] [place] [facility] [address] [facility] [address] Performing [facility]: [facility] [place] [facility] [address] [facility] [address] HEMOGLOBIN A1C 6.6 H 4.0-5.6 Apr 13, 2022 07:32 AM [place] LIPID PANEL FASTING Speci men Type: SERUM No comment enter ed. Ordering Provid er: ELEUTERIO ORONA Report Released Date/Time: November 24, 2021 09:54 AM Reporting Lab: [facility] [place] [facility] [address] [facility] [address] Performing Lab: [facility] [place] [facility] [address] [facility] [address] CHOLESTEROL 104 <7-199 TRIGLYCERIDE 97 0-150 LDL calculated 59 0-129 CHOL/HDL 4.0 HDL CHOLESTEROL 26 L 40-60 Apr 13, 2022 07:32 AM [place] TSH Specimen Type: SERUM No comment enter ed. Ordering Provid er: ELEUTERIO ORONA Report Released Date/Time: November 24, 2021 09:54 AM Reporting Lab: [facility] [place] [facility] [address] [facility] [address] Performing Lab: [facility] [place] [facility] [address] [facility] [address] TSH 1.43 0.35-5.00 Apr 13, 2022 07:32 [place] BASIC METABOLIC PANEL Specim en Type: SERUM AM (fasting) No comment enter ed. Ordering Provid er: ELEUTERIO ORONA Report Released Date/Time: November 24, 2021 09:54 AM Reporting Lab: [facility] [place] [facility] [address] [facility] [address] Performing Lab: [facility] [place] [facility] [address] [facility] [address] UREA NITROGEN 28 H 7-25 GLUCOSE 152 H 65-100 SODIUM 140 135-145 POTASSIUM 4.9 3.5-5.0 CHLORIDE 107 100-110 CO2 21 20-30 CREATININE, Serum 1.33 0.50-1.40 eGFR(CKD-EPI 2020) 52 L >60 Apr 13, 2022 07:32 AM [place] LIVER FUNCTION Specimen Type: SERUM No comment enter ed. Ordering Provid er: ELEUTERIO ORONA Report Released Date/Time: November 24, 2021 09:54 AM Reporting Lab: [facility] [address] [facility] [address] Performing Lab: [facility] [address] [facility] [address] PROTEIN,TOTAL 6.6 6.0-8.3 ALBUMIN 2.7 L 3.5-5.0 ALKALINE PHOSPHATASE 122 40-150 AST 24 5-34 ALT 43 <6-55 BILIRUBIN, TOTAL 0.4 0.2-1.2 Apr 13, 2022 07:32 AM [place] VITAMIN B12 Specimen Type: SERUM No comment enter ed. Ordering Provid er: ELEUTERIO ORONA Report Released Date/Time: November 24, 2021 10:36 AM Reporting Lab: [facility] [address] [facility] [address] Performing Lab: [facility] [address] [facility] [address] VITAMIN B12 313 200-900 Apr 13, 2022 07:32 AM [place] RETICULOCYTES Specimen Type: BLOOD No comment enter ed. Ordering Provid er: ELEUTERIO ORONA Report Released Date/Time: November 24, 2021 10:36 AM Reporting Lab: [facility] [address] [facility] [address] Performing Lab: [facility] [address] [facility] [address] RETIC % 1.6 0.6-2.0 RETIC, ABS 52.5 30.0-90.0 Ret-He % 33.0 27.9-42.0 Apr 13, 2022 07:32 AM [place] FERRITIN Specimen Type: SERUM No comment enter ed. Ordering Provid er: ELEUTERIO ORONA Report Released Date/Time: November 24, 2021 10:36 AM Reporting Lab: [facility] [address] [facility] [address] Performing Lab: [facility] [address] [facility] [address] FERRITIN 526.3 H 20-300 Apr 13, 2022 07:32 AM [place] IRON & TIBC PANEL Specime n Type: SERUM No comment enter ed. Ordering Provid er: ELEUTERIO ORONA Report Released Date/Time: November 24, 2021 10:36 AM Reporting Lab: [facility] [address] [facility] [address] Performing Lab: [address] [address] TIBC 243 204-475 IRON 46 40-160 Transferrin Saturation 18.9 L 20.0-50 .0 Apr 13, 2022 07:32 AM [place] CBC AND DIFF (AUTO) Speci men Type: BLOOD No comment enter ed. Ordering Provid er: ELEUTERIO ORONA Report Released Date/Time: November 24, 2021 09:54 AM Reporting Lab: [facility] [address] [facility] [address] Performing Lab: [address] [address] WBC 13.21 H 4.50-11.00 RBC 3.32 L 4.23-5.66 HGB 10.0 L 12.8-17 HCT 31.1 L 39.2-50.4 MCV 93.7 82-99 MCHC 32.2 30.8-35.1 PLT 544 H 140-360 RDW-CV 14.6 12.0-16.0 Cross, Abs 1.34 H 0.30-1.10 MCH 30.1 26.2-32.6 Neut % 54.1 Lymph % 27.0 Cross % 10.1 Eos % 7.5 Baso % [...] 26, 2020 10:43 AM [place]-TOBACCO FORMER USER [facility] Tobacco Use History This section includes a history of the smoking, or tobacco- related health factors, that were collected on or before the date of the Encounter. The data comes from the [place] facility where the Encounter took place. Date/Time Smoking Status/Tobacco Use Comment Facil it Jul 26, 2020 10:43 AM [place]-TOBACCO QUIT 15 YRS OR [place] CNT WSN [place] [facility] Advance Directives: All historical and current [...] May 20, 2006 ADVANCE DIRECTIVE BAYLEE SHUKLA [place] Encounter Notes: All associated encounter notes This section contains the clinical notes associated to the Encounter. Date/Time Encounter Note(s) Provider Source Mar 14, 2022 09:58 LETTERS: MAUREEN MCCORMICK [place] CNT W[place] LOCAL TITLE: PATIENT LETTER (B) [facility] STANDARD TITLE: LETTERS DATE OF NOTE: MAR 14, 2022@09:58 ENTRY DATE: MAR 14, 2022@09:58:40 AUTHOR: MAUREEN MCCORMICK EXP COSIGNER: URGENCY: STATUS: COMPLETED [facility] Toll Free Number [facility] scheduling can be juancarlos ched at ext. [phone] [facility]- ext. [phone] [facility]- ext. [phone] [facility]- ext. [phone] MAR 14, 2022 MART WALSH [address] [place], [place] [address] Dear MART WALSH Thank you for choosing [facility] as your primary choice for health care. As a partne r in your health care, we are contacting you in writing since we have been uns uccessful in our attempts to reach you to date. We want to assure you we are doing everything possible to schedule Veterans for their [place] medical care appo intments. Our records indicate you are due for an appointm ent in Pain Clinic . If you would like to be seen, please contact [place] Call Ce ntblue at ext. [phone] to schedule an appointment. Thank you for your service to our nation, and we look forward to hearing from you soon. Sincerely, [facility] Outpati ent Clinic [address] [facility] [address] [place] [address] [place] [address] [facility] [place] [facility] [address] [place] [address] [place] [address] ext. [phone] [facility] [address] [address] [place] [address] ext. [phone] [facility] [address] [place] [address] ext. [phone]
--- OUTSIDE RECORDS SUMMARY | 2022-04-21 09:24 | XMS_ITS ---
:1935 Author Organization [facility] Address [address] [place] [address] Support Name Relationship Address Phone BRIAN CHARLES Unavailable [address] [place] [address] BRIAN CHARLES Unavailable [address] [place] [address] BRIAN CHARLES Unavailable [address] [phone] [place] [address] Insurance Providers: All historical and current Section [...] Number Stinson ANTHEM MEDIGAP MEDEX Dec 29, [id number] [phone] Anamika WALSH PATIENT BCBS OF CT PLAN C 2001 3 SPEEDY ANTHEM MEDICARE MEDEX Dec 29, [id number] [phone] Anamika WALSH PATIENT BCBS OF CT SUPPLEMEN BRON 2001 3 SPEED[place]BS [place] MEDIC[place] Dec 29, [id number] [phone] Anamika GONZALES PATIENT SUPPLEMEN BRONZ 2001 4 SPE[place] Dec 29, [id number] [phone] Anamika GONZALES PATIENT SUPPLEMEN BRONZ 2001 4 SPEEDY HER[place] E BCBS OF MEDICARE PSUED May 31, [id number] [phone] Anamika GONZALES PATIENT [place] O [id number] 3 SPEEDY HERMINIA MEDEX BRONZ E BLUE CROSS MEDIGAP MEDEX May [id number] [phone] WHEE LER,R PATIENT [facility] Desmond MESA 1999 05 [id number] [facility] MEDICARE MEDICARE PART October 29, PART B [id number] WHEELE R,R PATIENT (WNR) (M) B 2001 RC08 00 SPEEDY MEDICARE MEDICARE PART October 29, PART B [id number] [phone] WHEELE R,R PATIENT (WNR) (M) B 2001 RC08 2 SPE[place] MEDICARE MEDICARE PART October 29, PART B [id number] [phone] WHEELE R,R PATIENT (WNR) (M) B 2001 85A 00 SPE[place] MEDICARE MEDICARE PART October 29, PART B [id number] [phone] WHEELE R,R PATIENT (WNR) (M) B 2001 RC08 00 [place] MEDICARE MEDICARE PART October 29, PART B [id number] [id number] WHEELE R,R PATIENT (WNR) (M) B 2001 85A 00 [place] MEDICARE MEDICARE PART May 31, PART A [id number] [phone] WHEELE R,R PATIENT (WNR) (M) A 1999 RC08 2 SPE[place]Y MEDICARE MEDICARE PART May 31, PART A [id number] [phone] WHEELE R,R PATIENT (WNR) (M) A 1999 85A 00 [place] MEDICARE MEDICARE PART May 31, PART A [id number] [phone] WHEELE R,R PATIENT (WNR) (M) A 1999 RC08 00 [place] MEDICARE MEDICARE PART May 31, PART A [id number] [id number] WHEELE R,R PATIENT (WNR) (M) A 1999 85A 00 SPE[place] MEDICARE MEDICARE PART May 31, PART A [id number] [phone] WHEELE R,R PATIENT (WNR) (M) A 1999 RC08 00 SPEEDY Selected Encounter This section includes the information on record at NM for the Encounter. Date/Time Encounter Type Encounter Description Reason Provider Source Feb 15, 2022 12:00 Outpatient Encounter COMMUNITY CARE AM CONSULT IHE Encounter Template Text not used by [facility] Plan of Treatment: Future Appointments (+ 6 months) and Future Tests (+/- 45 days) The Plan of Treatment section includes future care activities for the patient [facility] This section includes future appointments and future orders which are active, pending orscheduled.Future Appointments This section includes appointments that were scheduled to occur 6 months from the date of the Encounter, up to a maximum of 20 appointments. The data comes from all NM treatment [facility]. Appointment Date/Time Appointment Type Appointment Facili ty Name Mar 14, 2022 08:30 AM AMBULATORY MEDICINE [place] Mar 14, 2022 09:00 AM [facility] Mar 21, 2022 10:30 AM [facility] Mar 27, 2022 09:30 AM [facility] Apr 16, 2022 09:30 AM [facility] May 21, 2022 01:00 PM [facility] Social History: Smoking Status (Most current) and Tobacco Use (All prior to encounter date) This section includes the most current, and the historical, smoking and tobacco-related health factors from the NM facility where the Encounter took place.Current Smoking Status This section includes the most current smoking, or tobacco-related health factor, from the NM facility where the Encounter took place. Date/Time Current Smoking Status Comment Facility Jul 26, 2020 10:43 AM NM-TOBACCO FORMER USER [facility] Tobacco Use History This section includes a history of the smoking, or tobacco- related health factors, that were collected on or before the date of the Encounter. The data comes from the NM facility where the Encounter took place. Date/Time Smoking Status/Tobacco Use Comment [facility] Jul 26, 2020 10:43 AM NM-TOBACCO QUIT 15 YRS OR [facility] Advance Directives: All historical and current Section Date Range: From patient's date of to the date document was created. This section includes ALL of a patient's completed or amended [place] Advance and Rescinded Directives. The entries below indicate that a directive exists for the patient, but an actual copy is not included with this document. The data comes from all [facility]. Date Advance Directives Provider Source May 20, 2006 ADVANCE DIRECTIVE SHUKLABAYLEE Encounter Notes: All associated encounter notes This section contains the clinical notes associated to the Encounter. Date/Time Encounter Note(s) Provider Source Feb 15, 2022 12:00 AM NONVA CONSULT: SKYLER FITZGERALDRMarlen ZAMUDIO LOCAL TITLE: COMMUNITY CARE-CONSULT [facility]ULT [facility] STANDARD TITLE: NONVA CONSULT DATE OF NOTE: FEB 15, 2022 ENTRY DATE: MAR 20 022@07:46:13 AUTHOR: PRATEEK HELM EXP COSIGNER: URGENCY: STATUS: COMPLETED VistA Imaging - Scanned Document SCANNED DOCUMENT SIGNATURE NOT REQUIRED Electronically Filed: 03/20/2022 by: PRATEEK HELM INSIDE SALES AGENT
--- OUTSIDE RECORDS SUMMARY | 2022-04-21 09:24 | XMS_ITS | Encounter Summary ---
:1935 Author Organization [facility] Address [address] [place] [address] Support Name Relationship Address Phone BRIAN CHARLES Unavailable [address] [place] [address] BRIAN CHARLES Unavailable [address] [place] [address] BRIAN CHARLES Unavailable [address] [phone] [place] [address] Insurance Providers: All historical and current Section [...] Number Stinson ANTHEM MEDIGAP MEDEX Dec 29, [id number] [phone] Anamika WALSH PATIENT BCBS OF CT PLAN C 2001 3 SPEEDY ANTHEM MEDICARE MEDEX Dec 29, [id number] [phone] Anamika WALSH PATIENT BCBS OF CT SUPPLEMEN BRONZ 2001 3 SPEED[place] E BCBS [place] MEDICARE MEDEX Dec 29, [id number] [phone] Anamika GONZALES PATIENT SUPPLEMEN BRONZ [id number] 4 SPE[place] E BCBS [place] MEDICARE MEDEX Dec 29, [id number] [phone] Anamika GONZALES PATIENT SUPPLEMEN BRONZ 2001 4 SPEED[place] HER[place] E BCBS OF MEDICARE PSUED May 31, [id number] [phone] Anamika GONZALES PATIENT [place] SUPPLEMEN O [id number] 3 SPEEDY [place] MEDEX BRONZ E BLUE CROSS MEDIGAP MEDEX May 31, [id number] [phone] WHEE LER,R PATIENT BLUE PLAN Desmond EAST 1999 05 [id number] 4 [place] SHIELD OF E [place] MEDICARE MEDICARE PART October 29, PART B [id number] [phone] WHEELE R,R PATIENT (WNR) (M) B 2001 RC08 2 [facility] MEDICARE MEDICARE PART October 29, PART B [id number] [phone] WHEELE R,R PATIENT (WNR) (M) B 2001 85A 00 [facility] MEDICARE MEDICARE PART October 29, PART B [id number] [phone] WHEELE R,R PATIENT (WNR) (M) B 2001 RC08 00 [facility] MEDICARE MEDICARE PART October 29, PART B [id number] [phone] WHEELE R,R PATIENT (WNR) (M) B 2001 85A 00 [place] MEDICARE MEDICARE PART October 29, PART B [id number] [phone] WHEELE R,R PATIENT (WNR) (M) B 2001 RC08 00 [facility] MEDICARE MEDICARE PART May 31, PART A [id number] [phone] WHEELE R,R PATIENT (WNR) (M) A 1999 RC08 2 [facility] MEDICARE MEDICARE PART May 31, PART A [id number] [id number] WHEELE R,R PATIENT (WNR) (M) A 1999 85A 00 [facility] MEDICARE MEDICARE PART May 31, PART A [id number] [phone] WHEELE R,R PATIENT (WNR) (M) A 1999 RC08 00 SPE[place] MEDICARE MEDICARE PART May 31, PART A [id number] [phone] WHEELE R,R PATIENT (WNR) (M) A 1999 85A 00 SPE[place] MEDICARE MEDICARE PART May 31, PART A [id number] [phone] WHEELE R,R PATIENT (WNR) (M) A 1999 RC SPEEDY Selected Encounter This section includes the information on record at DC for the Encounter. Date/Time Encounter Type Encounter Reason Provider Source Description Mar 21, 2022 ELECTRICAL PHYSICAL THERAPY ICD-10-CM M54.50 LEATHA MARTINEZ 10:30 AM STIMULATION Low back pain, A unspecified with Provider Comments: Low back pain, unspecified IHE Encounter Template Text not used by DC Assessments - Encounter Diagnoses This section includes the primary and secondary diagnoses documented for the Encounter. Date/Time Primary/Secondary Diagnosis Name Provider Source Diagnosis Mar 21, 2022 PRIMARY Low back pain, SHIRIN SAMUEL [place] 11:36 AM unspecified NASE[facility] Plan of Treatment: Future Appointments (+ 6 months) and Future Tests (+/- 45 days) The Plan of Treatment section includes future care activities for the patient from all DC treatmentfacilities. This section includes future appointments and future orders which are active, pending orscheduled.Future Appointments This section includes appointments that were scheduled to occur 6 months from the date of the Encounter, up to a maximum of 20 appointments. The data comes from all DC treatment facilities. Appointment Date/Time Appointment Type Appointment Facili ty Name Mar 27, 2022 09:30 AM AMBULATORY - MEDICINE [facility] Apr 16, 2022 09:30 AM [facility] MEDICINE [facility] May 21, 2022 01:00 PM AMBULATORY - MEDICINE [place] Lab Results: +/- 30 days of the encounter This section includes the Chemistry and Hematology Lab Results on record with DC for the patient. Radiology Reports and Pathology Reports are provided separately, in subsequent sections.Lab Results This section contains the Chemistry/Hematology Results that were resulted 30 days before or 30 daysafter the date of the Encounter. Date/Time Source Result Type Result - Unit Interpretation Reference Range Comment Apr 13, 2022 07:32 AM [place] TRANSFERRIN, SERUM Specim en Type: SERUM No comment enter ed. Ordering Provid er: ELEUTERIO ORONA Report Released Date/Time: November 24, 2021 10:36 AM Reporting Lab: [facility] [address] [facility] [address] Performing Lab: [facility] [address] [facility] [address] TRANSFERRIN, SERUM 175 L 200-360 Apr 13, 2022 [place] HEMOGLOBIN A1C Specimen Type: BLOOD 07:32 AM [...] November 24, 2021 09:54 AM Reporting Lab: [facility] [address] [facility] [address] Performing Lab: [facility] [address] [facility] [address] HEMOGLOBIN A1C 6.6 H 4.0-5.6 Apr 13, 2022 07:32 AM [place] LIPID PANEL FASTING Speci men Type: SERUM No comment enter ed. Ordering Provid er: ELEUTERIO ORONA Report Released Date/Time: November 24, 2021 09:54 AM Reporting Lab: [address] [address] Performing Lab: [address] [address] CHOLESTEROL 104 <7-199 TRIGLYCERIDE 97 0-150 LDL calculated 59 0-129 CHOL/HDL 4.0 HDL CHOLESTEROL 26 L 40-60 Apr 13, 2022 07:32 AM [place] LIVER FUNCTION Specimen Type: SERUM No comment enter ed. Ordering Provid er: ELEUTERIO ORONA Report Released Date/Time: November 24, 2021 09:54 AM Reporting Lab: [facility] [address] [facility] [address] Performing Lab: [facility] [address] [facility] [address] PROTEIN,TOTAL 6.6 6.0-8.3 ALBUMIN 2.7 L 3.5-5.0 ALKALINE PHOSPHATASE 122 40-150 AST 24 5-34 ALT 43 <6-55 BILIRUBIN, TOTAL 0.4 0.2-1.2 Apr 13, 2022 07:32 [place] BASIC METABOLIC PANEL Specim en Type: SERUM AM (fasting) No comment enter ed. Ordering Provid er: ELEUTERIO ORONA Report Released Date/Time: November 24, 2021 09:54 AM Reporting Lab: [address] [address] Performing Lab: [facility] [place] [facility] [address] [facility] [address] UREA NITROGEN 28 H 7-25 GLUCOSE 152 H 65-100 SODIUM 140 135-145 POTASSIUM 4.9 3.5-5.0 CHLORIDE 107 100-110 CO2 21 20-30 CREATININE, Serum 1.33 0.50-1.40 eGFR(CKD-EPI 2020) 52 L >60 Apr 13, 2022 07:32 AM [place] TSH Specimen Type: SERUM No comment enter ed. Ordering Provid er: ELEUTERIO ORONA Report Released Date/Time: November 24, 2021 09:54 AM Reporting Lab: [facility] [place] [facility] [address] [facility] [address] Performing Lab: [facility] [place] [facility] [address] [facility] [address] TSH 1.43 0.35-5.00 Apr 13, 2022 07:32 AM [place] VITAMIN B12 Specimen Type: SERUM No comment enter ed. Ordering Provid er: ELEUTERIO ORONA Report Released Date/Time: November 24, 2021 10:36 AM Reporting Lab: [facility] [place] [facility] [address] [facility] [address] Performing Lab: [facility] [address] [facility] [address] VITAMIN B12 313 200-900 Apr 13, 2022 07:32 AM [place] IRON & TIBC PANEL Specime n Type: SERUM No comment enter ed. Ordering Provid er: ELEUTERIO ORONA Report Released Date/Time: November 24, 2021 10:36 AM Reporting Lab: [facility] [place] [facility] [address] [facility] [address] Performing Lab: [facility] [place] [facility] [address] [facility] [address] TIBC 243 204-475 IRON 46 40-160 Transferrin Saturation 18.9 L 20.0-50 .0 Apr 13, 2022 07:32 AM [place] FERRITIN Specimen Type: SERUM No comment enter ed. Ordering Provid er: ELEUTERIO ORONA Report Released Date/Time: November 24, 2021 10:36 AM Reporting Lab: [facility] [address] [facility] [address] Performing Lab: [facility] [address] [facility] [address] FERRITIN 526.3 H 20-300 Apr 13, 2022 07:32 AM [place] RETICULOCYTES Specimen Type: BLOOD No comment enter ed. Ordering Provid er: ELEUTERIO ORONA Report Released Date/Time: November 24, 2021 10:36 AM Reporting Lab: [facility] [address] [address] [address] Performing Lab: [address] [address] RETIC % 1.6 0.6-2.0 RETIC, ABS 52.5 30.0-90.0 Ret-He % 33.0 27.9-42.0 Apr 13, 2022 07:32 AM [place] CBC AND DIFF (AUTO) Speci men Type: BLOOD No comment enter ed. Ordering Provid er: ELEUTERIO ORONA Report Released Date/Time: November 24, 2021 09:54 AM Reporting Lab: [facility] [address] [facility] [address] Performing Lab: [facility] [place] [address] [address] WBC 13.21 H 4.50-11.00 RBC 3.32 L 4.23-5.66 HGB 10.0 L 12.8-17 HCT 31.1 L 39.2-50.4 MCV 93.7 82-99 MCHC 32.2 30.8-35.1 PLT 544 H 140-360 RDW-CV 14.6 12.0-16.0 Moody, Abs 1.34 H 0.30-1.10 MCH 30.1 26.2-32.6 Neut % 54.1 Lymph % 27.0 Moody % 10.1 Eos % 7.5 Baso % [...] smoking and tobacco-related health factors from the DC facility where the Encounter took place.Current Smoking Status This section includes the most current smoking, or tobacco-related health factor, from the DC facility where the Encounter took place. Date/Time Current Smoking Status Comment Facility November 24, 2021 09:00 AM VA-TOBACCO QUIT 15 YRS OR MORE [place] Tobacco Use History This section includes a history of the smoking, or tobacco- related health factors, that were collected on or before the date of the Encounter. The data comes from the DC facility where the Encounter took place. Date/Time Smoking Status/Tobacco Use Comment [facility] November 24, 2021 09:00 AM DC-TOBACCO QUIT 15 YRS OR [place] MORE Jul 16, 2018 10:34 AM VA-TOBACCO FORMER USER [facility] Jul 16, 2018 10:34 AM VA-TOBACCO QUIT 15 YRS OR [place] MORE Aug 16, 2017 09:44 AM QUIT TOBACCO USE > 7 YEARS [place] A[place] vet quit 30 years ago Sep 13, 2016 02:56 PM QUIT TOBACCO USE > 7 YEARS [place] A[place] quit 30 years ago Jul 25, 2015 12:44 PM QUIT TOBACCO USE > 7 YEARS [place] AGO Feb 05, 2005 01:52 PM HISTORY OF SMOKING SHERRELL CHAUDHARY Patient states he quit smoking 1 8 years ago. Sep 27, 2003 08:09 AM HISTORY OF SMOKING SHERRELL CHAUDHARY stopped tobacco 20 years ago May 25, 2002 08:00 AM HISTORY OF SMOKING SHERRELL CHAUDHARY Stopped tobacco 16 years ago Sep 26, 2001 11:28 AM QUIT TOBACCO USE > 7 YEARS [place] A[place] Jan 24, 2001 09:14 AM HISTORY OF SMOKING SHERRELL CHAUDHARY quit 16 years Advance Directives: All historical and current Section Date Range: From patient's date of to the date document was created. This section includes ALL of a patient's completed or amended DC Advance and Rescinded Directives. The entries below indicate that a directive exists for the patient, but an actual copy is not included with this document. The data comes from all DC facilities. Date Advance Directives Provider Source May 20, 2006 ADVANCE DIRECTIVE BAYLEE SHUKLA Encounter Notes: All associated encounter notes This section contains the clinical notes associated to the Encounter. Date/Time Encounter Note(s) Provider Source Mar 21, 2022 11:21 AM PHYSICAL THERAPY CONSULT: SHIRIN SAMUEL LOCAL TITLE: PHYSICAL THERAPY CONSULT STANDARD TITLE: PHYSICAL THERAPY CONSULT DATE OF NOTE: MAR 21, 2022@11:21 ENTRY DATE: MAR 21, 2022@11:21:42 AUTHOR: SHIRIN SAMUEL EXP COSIGNER: URGENCY: STATUS: COMPLETED How does the patient/client best learn? Listenin g, Demonstration Does the patient/client have any cultural and re ligious beliefs, emotional barriers, physical or cogniti ve limitations, and communication barriers which may impact his/her ability to learn? Yes Daughter Linda to help vet with this at [facility] Desire and motivation to learn? Good Initial date:03/21/22 Re-evaluation date: Treatment time:35 mins Diagnosis:Low back pain Provider:Jay Verduzco S: Vet here today walking i n with cane. Daughter Linda here with him. He just fell again last night, had CT scan at [facility]. He has home PT currently. Has a walker at home. Pain is a 5-6/10 sharp. Had Xray 's a few weeks ago after the initial fall. Linda will help father dakota/ff , use Tens unit at home. PROSTHETIC CHECKOUT Educated daughter Linda and Vet on Tens unit. Issued and reviewed do's and don'ts paper. Pt was issued: ( )Compression stockings ( )Assistive device ( )Brace ( X)TENS unit (X )TENS Electrodes (X )Hot Pack (X )Cold pack ( )Cervical home traction ( )Other: Company: [employer] tens unit (stock) Large hot cold pack (stock) Order/Model #: Size: Trialed Tens unit in clinic. This write r applied electrodes. Daughter will do it at home. Vet reports helping decrease pain a notc h or two. Pt may be in more pain today due to fall last night. Daughter will be helping vet with Tens unit at home. (X )Pt is I and safe with use of equipment( daug hter to apply electrodes) ( X)Pt has been instructed in :Tens unit and hp/ cp (X )Pt requires assistance: (X )Pt was instructed to call PT clinic if any q uestions should arise Patient Education Education provided on the following topics:see nitin christopher Education provided to:p,f Response to Education:zain box,lacey Morgan Patient P Family F Significant Other SO Verbalizes Understanding VU Returns Demonstration RD Performs Independently PI Lacks Comprehension LC Refused Education RE Not Applicable NA The practitioner's co-signature on this note sig nifies agreement with the plan of care and clinical diagnosis code. /selam/ Shirin Samuel P.T.Holli COREMAKER PIPE Signed: 03/21/2022 11:36 Receipt Acknowledged By: * AWAITING SIGNATURE * KEIKO MARTINEZ
--- OUTSIDE RECORDS SUMMARY | 2022-04-21 09:25 | XMS_ITS ---
:1935 Author Organization Department [facility] rs Address [address] [place] [address] Support Name Relationship Address Phone BRIAN CHARLES Unavailable [address] [place] [address] BRIAN CHARLES Unavailable [address] [place] [address] BRIAN CHARLES Unavailable [phone] [place] [address] Insurance Providers: All historical and current Section [...] Number [place] ANTHEM MEDIGAP MEDEX Dec 29, [id number] [phone] Anamika WALSH PATIENT BCBS OF CT PLAN C 2001 3 SPEEDY [facility] MEDICARE MEDEX Dec 29, [id number] [phone] Anamika WALSH PATIENT BCBS OF CT SUPPLEMEN BRONZ 2001 3 SPEEDY [place] E BCBS OR MEDICARE MEDEX Dec 29, [id number] [phone] Anamika GONZALES PATIENT SUPPLEMEN BRONZ 2001 4 SPEEDY [place] E BCBS OR MEDICARE MEDEX Dec 29, [id number] [phone] Anamika GONZALES PATIENT SUPPLEMEN BRONZ 2001 4 SPEEDY [place] E BCBS OF MEDICARE PSUED May 31, [id number] [phone] Anamika GONZALES PATIENT [place] SUPPLEMEN O 1999 3 SPEEDY [place] MEDEX BRONZ E BLUE [place] MEDIGAP MEDEX May 31, [id number] [phone] WHEE LER,R PATIENT BLUE [facility] KITA 1999 [id number] OBERT SHIELD OF E [place] MEDICARE MEDICARE PART October 29, PART B [id number] WHEELE R,R PATIENT (WNR) (M) B 2001 RC08 2 OBERT MEDICARE MEDICARE PART October 29, PART B [id number] [phone] WHEELE R,R PATIENT (WNR) (M) B 2001 85A 00 SPEEDY MEDICARE MEDICARE PART October 29, PART B [id number] [phone] WHEELE R,R PATIENT (WNR) (M) B 2001 RC08 SPEEDY MEDICARE MEDICARE PART October 29, PART B [id number] [phone] WHEELE R,R PATIENT (WNR) (M) B 2001 85A 00 SPEEDYERT MEDICARE MEDICARE PART October 29, PART B [id number] [id number] WHEELE R,R PATIENT (WNR) (M) B 2001 RC08 00 SPEEDY MEDICARE MEDICARE PART May 31, PART A [id number] [phone] WHEELE R,R PATIENT (WNR) (M) A 1999 RC08 2 SPEEDY MEDICARE MEDICARE PART May 31, PART A [id number] [phone] WHEELE R,R PATIENT (WNR) (M) A 1999 85A 00 SPEEDY MEDICARE MEDICARE PART May 31, PART A [id number] [phone] WHEELE R,R PATIENT (WNR) (M) A 1999 RC08 00 SPEEDY MEDICARE MEDICARE PART May 31, PART A [id number] [phone] WHEELE R,R PATIENT (WNR) (M) A 1999 85A 00 SPEEDY MEDICARE MEDICARE PART May 31, PART A [id number] [phone] WHEELE R,R PATIENT (WNR) (M) A 1999 RC SPEEDY Selected Encounter This section includes the information on record at OR for the Encounter. Date/Time Encounter Type Encounter Reason Provider Source Description Mar 27, 2022 OFFICE O/P NEW PAIN CLINIC ICD-10-CM KUPFERSCHMID,S 09:30 AM MOD 45-59 MIN S32.030D Wedge ETH B comprsn fx third lum vert, subs for fx w routn heal with Provider Comments: Wedge Compression Fracture of third Lumbar Vertebra, Subsequent Encounter for Fracture with Routine Healing IHE Encounter Template Text not used by [facility] Assessments - Encounter Diagnoses This section includes the primary and secondary diagnoses documented for the Encounter. 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) use [facility] [place] [facility] of opiate analgesic Mar 27, 2022 SECONDARY Other chronic [facility]28 AM pain [facility] [place] [facility] Mar 27, 2022 SECONDARY Wedge comprsn [facility] 11:28 AM fx second lum [facility] [place] [facility] vert, subs for fx w routn heal Plan of Treatment: Future Appointments (+ 6 [...] Date/Time Appointment Type Appointment Facili ty Name Apr 16, 2022 09:30 AM [facility] [place] [facility] May 21, 2022 01:00 PM AMBULATORY - MEDICINE [facility] Lab Results: +/- 30 days of the [...] Range Comment Apr 13, 2022 07:32 AM [facility] TRANSFERRIN, SERUM Specim en Type: SERUM No comment enter ed. Ordering Provid er: ELEUTERIO ORONA Report Released Date/Time: November 24, 2021 10:36 AM Reporting Lab: [facility] [address] [facility] [address] Performing Lab[facility] [address] [facility] [address] TRANSFERRIN, SERUM 175 L 200-360 Apr 13, 2022 [facility] HEMOGLOBIN A1C Specimen Type: BLOOD 07:32 AM [...] 24, 2021 09:54 AM Reporting Lab: [facility] [address] [facility] [address] Performing Lab: [facility] [address] [facility] [address] HEMOGLOBIN A1C 6.6 H 4.0-5.6 Apr 13, 2022 07:32 AM [facility] LIPID PANEL FASTING Speci men Type: SERUM No comment enter ed. Ordering Provid er: ELEUTERIO ORONA Report Released Date/Time: November 24, 2021 09:54 AM Reporting Lab: [facility] [address] [facility] [address] Performing Lab: [facility] [address] [facility] [address] CHOLESTEROL 104 <7-199 TRIGLYCERIDE 97 0-150 LDL calculated 59 0-129 CHOL/HDL 4.0 HDL CHOLESTEROL 26 L 40-60 Apr 13, 2022 07:32 AM [facility] TSH Specimen Type: SERUM No comment enter ed. Ordering Provid er: ELEUTERIO ORONA Report Released Date/Time: November 24, 2021 09:54 AM Reporting Lab: [facility] [address] [facility] [address] Performing Lab: [facility] [address] [facility] [address] TSH 1.43 0.35-5.00 Apr 13, 2022 07:32 [facility] BASIC METABOLIC PANEL Specim en Type: SERUM AM (fasting) No comment enter ed. Ordering Provid er: ELEUTERIO ORONA Report Released Date/Time: November 24, 2021 09:54 AM Reporting Lab: [facility] [address] [facility] [address] Performing Lab: [facility] [address] UREA NITROGEN 28 H 7-25 GLUCOSE 152 H 65-100 SODIUM 140 135-145 POTASSIUM 4.9 3.5-5.0 CHLORIDE 107 100-110 CO2 21 20-30 CREATININE, Serum 1.33 0.50-1.40 eGFR(CKD-EPI 2020) 52 L >60 Apr 13, 2022 07:32 AM [facility] LIVER FUNCTION Specimen Type: SERUM No comment enter ed. Ordering Provid er: ELEUTERIO ORONA Report Released Date/Time: November 24, 2021 09:54 AM Reporting Lab: [facility] [address] [facility] [address] Performing Lab: [facility] [address] [facility] [address] PROTEIN,TOTAL 6.6 6.0-8.3 ALBUMIN 2.7 L 3.5-5.0 ALKALINE PHOSPHATASE 122 40-150 AST 24 5-34 ALT 43 <6-55 BILIRUBIN, TOTAL 0.4 0.2-1.2 Apr 13, 2022 07:32 AM [facility] RETICULOCYTES Specimen Type: BLOOD No comment enter ed. Ordering Provid er: ELEUTERIO ORONA Report Released Date/Time: November 24, 2021 10:36 AM Reporting Lab: [facility] [address] Performing Lab: [facility] [place] [facility] [address] [facility] [address] RETIC % 1.6 0.6-2.0 RETIC, ABS 52.5 30.0-90.0 Ret-He % 33.0 27.9-42.0 Apr 13, 2022 07:32 AM [facility] VITAMIN B12 Specimen Type: SERUM No comment enter ed. Ordering Provid er: ELEUTERIO ORONA Report Released Date/Time: November 24, 2021 10:36 AM Reporting Lab: [facility] [place] [facility] [address] [facility] [address] Performing Lab: [facility] [address] [facility] [address] VITAMIN B12 313 200-900 Apr 13, 2022 07:32 AM [facility] FERRITIN Specimen Type: SERUM No comment enter ed. Ordering Provid er: ELEUTERIO ORONA Report Released Date/Time: November 24, 2021 10:36 AM Reporting Lab: [facility] [address] [facility] [address] Performing Lab: [facility] [address] [facility] [address] FERRITIN 526.3 H 20-300 Apr 13, 2022 07:32 AM [facility] IRON & TIBC PANEL Specime n Type: SERUM No comment enter ed. Ordering Provid er: ELEUTERIO ORONA Report Released Date/Time: November 24, 2021 10:36 AM Reporting Lab: [facility] [place] [facility] [address] [facility] [address] Performing Lab: [facility] [address] [facility] [address] TIBC 243 204-475 IRON 46 40-160 Transferrin Saturation 18.9 L 20.0-50 .0 Apr 13, 2022 07:32 AM [facility] CBC AND DIFF (AUTO) Speci men Type: BLOOD No comment enter ed. Ordering Provid er: ELEUTERIO ORONA Report Released Date/Time: November 24, 2021 09:54 AM Reporting Lab: [facility] [address] [facility] [address] Performing Lab: [facility] [address] [facility] [place] [address] WBC 13.21 H 4.50-11.00 RBC 3.32 L 4.23-5.66 HGB 10.0 L 12.8-17 HCT 31.1 L 39.2-50.4 MCV 93.7 82-99 MCHC 32.2 30.8-35.1 PLT 544 H 140-360 RDW-CV 14.6 12.0-16.0 Loving, Abs 1.34 H 0.30-1.10 MCH 30.1 26.2-32.6 Neut % 54.1 Lymph % 27.0 Loving % 10.1 Eos % 7.5 Baso % [...] 26, 2020 10:43 AM OR-TOBACCO FORMER USER [facility] Tobacco Use History This section includes a history of the smoking, or tobacco- related health factors, that were collected on or before the date of the Encounter. The data comes from the OR facility where the Encounter took place. Date/Time Smoking Status/Tobacco Use Comment [facility] Jul 26, 2020 10:43 AM OR-TOBACCO QUIT 15 YRS OR [facility] Advance Directives: All historical [...] the Encounter. Date/Time Encounter Note(s) Provider Source Apr 05, 2022 04:15 ACCOUNTING OF DISCLOSURES NOTE: SHON DION [facility] PM LOCAL TITLE: [facility] PRESCRIPTION DRUG MONITORING PROGRAM B [facility] STANDARD TITLE: ACCOUNTING OF DISCLOSURES NOTE DATE OF NOTE: APR 05, 2022@16:15:29 ENTRY DATE: APR 05, 2022@16:15:29 AUTHOR: DION SMITH EXP COSIGNER: URGENCY: STATUS: COMPLETED This PDMP query was submitted by Se lydia Smith MD. The clinical justification for this PDMP query i s to review controlled substances prescribed outside of the [facility], and any additional information that may become available, as an important compo nent of standard clinical care, and in accordance with [facility] policy. Patient information was shared with the PDMP Aj [employer]. No prescription(s) for controlled substances out side the VA were found in the last 90 days. /selam/ DION SMITH MD PHYSICIAN Signed: 04/05/2022 16:15 Apr 05, 2022 04:15 MEDICATION MGT NOTE: [facility] W[facility] LOCAL TITLE: OPIOID/CONTROLLED SUBSTANCE RENEWA L NOTE B [facility] STANDARD TITLE: MEDICATION MGT NOTE DATE OF NOTE: APR 05, 2022@16:15 ENTRY DATE: APR 05, 2022@16:15:55 AUTHOR: DION SMITH EXP COSIGNER: URGENCY: STATUS: COMPLETED Standard Opioid Renewal/Controlled Substance Not e Requested Medication: Butrans Mail to patient [place] Prescription Monitoring Program ( A [employer]' ADVISORY SERVICE LIBRARIAN) checked today. [email or web address] Drug Screen No data available for: OPIATES SCREEN OXYCODONE SCREEN METHADONE SCREEN BENZODIAZEPINES SCREEN COCAINE SCREEN CANNABINOIDS SCREEN ALCOHOL, ETHYL URINE AMPHETAMINES SCREEN BUPRENORPHINE (URINE) Ethyl Glucuronide Screen Ethyl Sulfate Ethyl Glucuronide Conf == called to report Butrans 5 mcg/h our did not relieve pain. He increased to 2 patches (10 mcg/hour) with minimal relief. Still with pain with movement. PLAN: Butrans 20 mcg/hour, for overnight delivery. - will call next week to update response. Has appointment 04/16. /selam/ DION SMITH MD PHYSICIAN Signed: 04/05/2022 16:19 Receipt Acknowledged By: * AWAITING SIGNATURE * SANDEEP ALTAMIRANO * AWAITING SIGNATURE * CINDY BAER Mar 27, 2022 11:28 PAIN MEDICINE CONSULT: DION SMITH NTRL WSTRN [facility] TITLE: CONSULT REPORT/PAIN CLINIC B [facility] STANDARD TITLE: PAIN MEDICINE CONSULT DATE OF NOTE: MAR 27, 2022@11:28 ENTRY DATE: MAR 27, 2022@11:29:18 AUTHOR: DION SMITH EXP COSIGNER: URGENCY: STATUS: COMPLETED Dr. Altamirano requested consultation with to [facility] Mr. Walsh with management of his chronic pain conditions. His daughter Brian Charles was at the [facility] ent and very helpful. Age 86, May ASSESSMENT Mr. Walsh is an 86 year old man who lives inde pendently (with family nearby) who has had pain along his spine since h e fell on February 28 and again on March 20. Xrays at [facility] on showed compression fractures of L2 and L3 of undetermined duration (report in Contact Info Note March 22); CT on March 20 showed similar by daughter's report. He does not report radicular symptoms. He is eating well and has loose bowels Before February 28, Mr. Walsh took about 1 trama dol per day for knee pain. He was more active than he is capable of being now. He received 2 prescriptions for oxycodone/APAP, #14 on February 28, and #6 on March 14. The oxy/APAP provided limited relief of short duration. He ayala s pain with movement, especially bending. The pain interferes with his sleep. He has a new TENS unit which provides slight relief. The lidocaine patch does not help. He has had years of arthritic joint pains and ayala s received nothing stronger in the [facility] system than tramadol, except for an ox ycodone prescription in 2010 when he broke his ankle. He quit smoking over 35 years ago. He reduced his alcohol use about 25 years and now consumes very little. His daughter Brian and her family see Mr. Malu guajardo daily. He has been a since 2007 when his of 43 years d. 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 He was oriented to place and time. He gave infor mation thoroughly. He manages his own finances. He was using a walker, moved s lowly and used the walker to lift himself from the sitting position. He had pain to palpation along his lumbar spine, wincing with touch. His last UDS in May was negative. Review of the PDMP did not show any concerns. >>DIAGNOSIS >>Compression fractures at C2 and C3 since t 31 RECOMMENDATIONS 1. Trial of Butrans 5 mcg/hour. I reviewed the benefits of the steady an d sustained pain relief from the patch versus medication like oxycodone. We rev iewed the safety profile. He agreed he would like to try it. We will start at 5 mch/smiley r with guidance that he can apply a second patch in 3-4 days if he is not ge tting adequate relief. His daughter will watch Mr. Walsh to see if he shows any signs of confusion with Butrans. His history turner ggests he is at low risk of addiction or abuse with the medication. We discussed that the pain f rom the compression fractures may resolve such that he does not need ongoing treatment for pain. OTHER -He has had Physical Therapy at home and may benefit from a new evaluation and treatment. -Appointment was for acute p ain. If it persists, then will discuss evaluation by [facility]. FOLLOW UP 2-3 weeks by [facility] with daughter present to evalua te benefit of Butrans. 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 Under care of multiple providers 2. Trimalleolar fracture 3. 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 Unspecified disorder of kidney and ureter 6. Osteoarthritis * 7. Personal History of Colonic Polyps 8. Mixed hyperlipidemia 9. 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 Essential hypertension (SNOMED CT 19429822) 11. GERD 12. Asthma, unspecified type, without mention of status asthmaticus or acute exa MEDICATIONS Active Outpatient Medications (including Supplie s): Active Outpatient Medications Status 1) ACCU-CHEK GUIDE (GLUCOSE) TEST STRIP USE ST RIP TO ACTIVE TEST BLOOD SUGARS ONCE DAILY NEEDED [NEW YEHUDA HAILEY OF TEST STRIP TO USE WITH GUIDE ME METER] 2) ATORVASTATIN CALCIUM 80MG TAB TAKE ONE-HALF T ABLET BY ACTIVE MOUTH ONCE DAILY FOR CHOLESTEROL Taking 3) DILTIAZEM (EQV-TIAZAC) 240MG 24HR CAP TAKE ON E ACTIVE (S) CAPSULE BY MOUTH ONCE DAILY Taking 4) DOXAZOSIN MESYLATE 2MG TAB TAKE ONE TABLET BY MOUTH ACTIVE ONCE DAILY Taking 5) FUROSEMIDE 20MG TAB TAKE ONE TABLET BY MOUTH EVERY ACTIVE DAY TO REMOVE FLUID/CONTROL BLOOD PRESSURE Taking 6) LIDOCAINE 5% PATCH APPLY 1 PATCH TOPICALLY ON CE DAILY ACTIVE NEEDED (LEAVE PATCH ON FOR 12 HOURS, THEN RE MOVE PATCH) Using 7) LORATADINE 10MG TAB TAKE ONE TABLET BY MOUTH ONCE ACTIVE DAILY NEEDED FOR ALLERGY 8) METFORMIN HCL 500MG TAB TAKE ONE TABLET BY MO UTH ACTIVE TWICE DAILY FOR DIABETES Taking 9) METOPROLOL TARTRATE 25MG TAB TAKE ONE TABLET BY MOUTH ACTIVE TWICE DAILY FOR BLOOD PRESSURE/HEART Taking 10) MOMETASONE FUROATE 220MCG ORAL INHL 60 INHAL E 2 PUFFS ACTIVE BY MOUTH TWICE DAILY --RINSE MOUTH AFTER EACH U SE Using 11) OMEPRAZOLE 20MG CAP,EC TAKE ONE CAPSULE BY M OUTH ACTIVE DAILY Using 12) OXYCODONE HCL 5MG/APAP 325MG TAB TAKE 1 TABL ET BY ACTIVE MOUTH TWICE DAILY NEEDED FOR PAIN STOP TRAMA DOL WHILE TAKING PERCOCET Finished 13) PSYLLIUM SF ORAL PWD TAKE 2 TEASPOONFULS BY MOUTH ACTIVE ONCE DAILY NEEDED (MIX WITH AT LEAST 8OZ. OF WATER OR OTHER FLUID) 14) SIMVASTATIN 40MG TAB TAKE ONE-HALF TABLET BY MOUTH AT HOLD BEDTIME Taking 15) TRAMADOL HCL 50MG TAB TAKE ONE TABLET BY YANN TH TWICE ACTIVE DAILY Taking 16) VALSARTAN 320MG TAB TAKE ONE TABLET BY MOUTH ONCE ACTIVE DAILY *THIS IS A HIGHER DOSE* Taking 17) ZAFIRLUKAST 20MG TAB TAKE ONE TABLET BY MOUT H TWICE ACTIVE DAILY Pending Outpatient Medications Status 1) BUPRENORPHINE 5MCG/HR PATCH APPLY 1 PATCH TO SKIN PENDING EVERY 7 DAYS (REMOVE PATCH BEFORE APPLYING A NE W PATCH) Active Non-VA Medications Status 1) Non-VA ASPIRIN 81MG EC TAB 81MG BY MOUTH ACTI VE 2) Non-VA MULTIVITAMIN/MINERALS CAP/TAB 1 TABLET BY ACTIVE MOUTH 3) Non-VA OTHER CAP/TAB EITHER CELEBREX,NAPROSYN OR ACTIVE IBUPROFEN TWICE DAILY 4) Non-VA OTHER CAP/TAB NEXIUM 40MG DAILY ACTIVE 22 Total Medications MEDICATION ALLERGIES LISINOPRIL, FELODIPINE VITAL SIGNS: Temperature 97.9 F [36.6 C] (11/24/2021 09:27) Blood Pressure 148/63 (03/14/2022 10:24) Pulse 84 (03/14/2022 10:24) Respiration 20 (03/14/2022 10:24) Pain 8 (11/24/2021 09:27) BMI BMI: 33.6 Weight 240.2 lb [108.95 kg] (11/24/2021 09:27) Pulse Oximetry 96% (03/14/2022 10:24) UDS last date: T - [facility]A DRUG SCREEN Collection DT Specimen Test Name Result Units Re f Range 05/31/2021 07:19 URINE !! OPIATES SCREEN NONE-DE TECTED Ref: None-Detected, Cutoff = 300 ng/mL 05/31/2021 07:19 URINE !! METHADONE SCREEN None detected(Negative) LRef: Negative 05/31/2021 07:19 URINE !! COCAINE SCREEN NONE-DE TECTED Ref: None-Detected,Cutoff = 300 ng/mL 05/31/2021 07:19 URINE !! CANNABINOIDS SCRENONE- DETECTED Ref: None-Detected,Cutoff = 50 ng/mL === 30 minutes: F2F with patient and daughter to obtain history, provide education, and answer questions. 60 minutes: chart review, prepare documentation. /selam/ DION SMITH MD PHYSICIAN Signed: 03/27/2022 12:23 Mar 27, 2022 10:52 ACCOUNTING OF DISCLOSURES NOTE: DION SMITH CNTRL WSTRN AM LOCAL TITLE: STATE PRESCRIPTION DRUG MONITORING PROGRAM B [employer] [facility] STANDARD TITLE: ACCOUNTING OF DISCLOSURES NOTE DATE OF NOTE: MAR 27, 2022@10:52:38 ENTRY DATE: MAR 27, 2022@10:52:38 AUTHOR: DION SMITH EXP COSIGNER: URGENCY: STATUS: COMPLETED This PDMP query was submitted by Se lydia Smith MD. The clinical justification for this PDMP query i s to review controlled substances prescribed outside of the VA, and any additional information that may become available, as an important compo nent of standard clinical care, and in accordance with [facility] policy. Patient information was shared with the PDMP Aj [employer]. Prescription(s) filled outside the VA in the las t 90 days are noted. However, they do not raise significan t safety concerns and do not influence the treatment plan at this time. ======= Oxy/APAP #14 for compression fractures February 28 Oxy/APAP #6 from [facility] March 14 Tramadol #60, fill every 60+ days /es/ DION SMITH MD PHYSICIAN Signed: 03/27/2022 11:28
--- OUTSIDE RECORDS SUMMARY | 2022-04-21 09:25 | XMS_ITS | Encounter Summary ---
:[address] [facility] Address [address] [place] [id number] Support Name Relationship Address Phone BRIAN CHARLES Unavailable [address] [place] [address] BRIAN CHARLES Unavailable [address] [place] [address] BRIAN CHARLES Unavailable [address] [phone] [place] [address] Insurance Providers: All historical and current Section [...] Number Stinson ANTHEM MEDIGAP MEDEX Dec 29, [id number] [phone] Anamika WALSH PATIENT BCBS OF CT PLAN C 2001 3 SPEEDY ANTHEM MEDICARE MEDEX Dec 29, [id number] [phone] Anamika WALSH PATIENT BCBS OF CT SUPPLEMEN BRON 2001 3 SPEED[place] E [place] Dec 29, [id number] [phone] Anamika GONZALES PATIENT SUPPLEMEN BRONZ 2001 4 [place] Dec 29, [id number] [phone] Anamika GONZALES PATIENT SUPPLEMEN BRONZ 2001 4 SPEEDY [place] E BCBS OF MEDICARE PSUED May 31, [id number] [phone] Anamika GONZALES PATIENT [place] SUPPLEMEN O 1999 3 SPEEDY [place] MEDEX BRONZ E BLUE CROSS MEDIGAP MEDEX May 31 [id number] [phone] WHEE LER,R PATIENT BLUE [facility] [place] 1999 [id number] [facility] MEDICARE MEDICARE PART October 29, PART B [id number] [phone] WHEELE R,R PATIENT (WNR) (M) B 2001 RC08 2 SPEEDY MEDICARE MEDICARE PART October 29, PART B [id number] [phone] WHEELE R,R PATIENT (WNR) (M) B 2001 85A 00 SPEEDY MEDICARE MEDICARE PART October 29, PART B [id number] [phone] WHEELE R,R PATIENT (WNR) (M) B 2001 RC08 00 SPEEDY MEDICARE MEDICARE PART October 29, PART B [id number] [phone] WHEELE R,R PATIENT (WNR) (M) B 2001 85A 00 SPEEDY MEDICARE MEDICARE PART October 29, PART B [id number] [phone] WHEELE R,R PATIENT (WNR) (M) B 2001 RC08 00 SPEEDY MEDICARE MEDICARE PART May 31, PART A [id number] [phone] WHEELE R,R PATIENT (WNR) (M) A 1999 RC08 2 SPEEDY MEDICARE MEDICARE PART May 31, PART A [id number] [phone] WHEELE R,R PATIENT (WNR) (M) A 1999 85A 00 SPEEDY MEDICARE MEDICARE PART May 31, PART A [id number] [phone] WHEELE R,R PATIENT (WNR) (M) A 1999 RC08 00 SPEEDY MEDICARE MEDICARE PART May 31, PART A [id number] [phone] WHEELE R,R PATIENT (WNR) (M) A 1999 85A 00 SPEEDY MEDICARE MEDICARE PART May 31, PART A [id number] [phone] WHEELE R,R PATIENT (WNR) (M) A 1999 RC08 00 SPEEDY Selected Encounter This section includes the information on record at [facility] for the Encounter. Date/Time Encounter Type Encounter Description Reason Provider Source Feb 28, 2022 12:00 Outpatient Encounter EVENT (HISTORICAL) AM IHE Encounter Template Text not used by [facility] Plan of Treatment: Future Appointments (+ 6 months) and Future Tests (+/- 45 days) The Plan of Treatment section includes future care activities for the patient from all [facility] This section includes future appointments and future orders which are active, pending orscheduled.Future Appointments This section includes appointments that were scheduled to occur 6 months from the date of the Encounter, up to a maximum of 20 appointments. The data comes from all [place] treatment facilities. Appointment Date/Time Appointment Type Appointment Facili ty Name Mar 14, 2022 08:30 AM [facility]ORY [facility] Mar 14, 2022 09:00 AM [facility] Mar 21, 2022 10:30 [facility] Mar 27, 2022 09:30 AM [facility] Apr 16, 2022 09:30 AM [facility] May 21, 2022 01:00 PM [facility] Social History: Smoking Status (Most current) and [...] 26, 2020 10:43 AM [place]-TOBACCO FORMER USER [facility] Tobacco Use History This section includes a history of the smoking, or tobacco- related health factors, that were collected on or before the date of the Encounter. The data comes from the [place] facility where the Encounter took place. Date/Time Smoking Status/Tobacco Use Comment [facility] Jul 26, 2020 10:43 AM DE-TOBACCO QUIT 15 YRS OR [facility] Advance Directives: All historical and current [...] Encounter. Date/Time Encounter Note(s) Provider Source Feb 28, 2022 12:00 AM NONVA NOTE: [facility] CNTR[facility] W STRN LOCAL TITLE: NON-VA HOSPITALIZATIONS/[place] [facility] STANDARD TITLE: NONVA NOTE DATE OF NOTE: FEB 28, 2022 ENTRY DATE: MAR 29 022@13:27:36 AUTHOR: PRATEEK HELM EXP COSIGNER: URGENCY: STATUS: COMPLETED VistA Imaging - Scanned Document SCANNED DOCUMENT SIGNATURE NOT REQUIRED Electronically Filed: 03/29/2022 by: PRATEEK HELM REMOTE BROADCAST TECHNICIAN
--- OUTSIDE RECORDS SUMMARY | 2022-04-21 09:25 | XMS_ITS | Encounter Summary ---
:1935 Author Organization [facility] Address [address] [place] [address] Support Name Relationship Address Phone BRIAN CHARLES Unavailable [address] [place] [address] BRIAN CHARLES Unavailable [address] [place] [address] BRIAN CHARLES Unavailable [address] [phone] [place] [address] Insurance Providers: All historical and current Section [...] Number Stinson ANTHEM MEDIGAP MEDEX Dec 29, [id number] [phone] Anamika WALSH PATIENT BCBS OF CT PLAN C 2001 3 SPEEDY ANTHEM MEDICARE MEDEX Dec 29, [id number] [phone] Anamika WALSH PATIENT BCBS OF CT SUPPLEMEN BRON 2001 3 SPEED[place] E BCBS [place] MEDICARE MED[place] Dec 29, [id number] [phone] Anamika GONZALES PATIENT SUPPLEMEN BRONZ [id number] 4 SPE[place] E [place] MED[place] MED[place] Dec 29, [id number] [phone] Anamika GONZALES PATIENT SUPPLEMEN BRONZ 2001 4 SPEEDY HER[place] E BCBS OF MEDICARE PSUED May 31, [id number] [phone] Anamika GONZALES PATIENT [place] SUPPLEMEN O [id number] 3 SPEEDY [place] MEDEX BRONZ E BLUE CROSS MEDIGAP MEDEX May 31, [id number] [phone] WHEE LER,R PATIENT BLUE [facility] [place] 1999 05 [id number] 4 OBERT SHIELD OF E [place] MEDICARE MEDICARE PART October 29, PART B [id number] [phone] WHEELE R,R PATIENT (WNR) (M) B 2001 RC08 2 [facility] MEDICARE MEDICARE PART October 29, PART B [id number] [phone] WHEELE R,R PATIENT (WNR) (M) B 2001 85A 00 SPEEDY MEDICARE MEDICARE PART October 29, PART B [id number] [phone] WHEELE R,R PATIENT (WNR) (M) B 2001 RC08 00 SPEEDY MEDICARE MEDICARE PART October 29, PART B [id number] [phone] WHEELE R,R PATIENT (WNR) (M) B 2001 85A 00 SPEEDY MEDICARE MEDICARE PART October 29, PART B [id number] [phone] WHEELE R,R PATIENT (WNR) (M) B 2001 RC08 00 SPEEDY MEDICARE MEDICARE PART May 31, PART A [id number] [phone] WHEELE R,R PATIENT (WNR) (M) A 1999 RC08 2 SPEEDY MEDICARE MEDICARE PART May 31, PART A [id number] [phone] WHEELE R,R PATIENT (WNR) (M) A 1999 85A 00 SPEEDY MEDICARE MEDICARE PART May 31, PART A [id number] [phone] WHEELE R,R PATIENT (WNR) (M) A 1999 RC08 00 SPEEDY MEDICARE MEDICARE PART May 31, PART A [id number] [phone] WHEELE R,R PATIENT (WNR) (M) A 1999 85A 00 SPEEDY MEDICARE MEDICARE PART May 31, PART A [id number] [phone] WHEELE R,R PATIENT (WNR) (M) A 1999 RC08 SPEEDY Selected Encounter This section includes the information on record at VA for the Encounter. Date/Time Encounter Type Encounter Description Reason Provider Source Apr 03, 2022 01:46 Outpatient Encounter PAIN CLINIC PM IHE Encounter Template Text not used by [facility] Plan of Treatment: Future Appointments (+ 6 months) and Future Tests (+/- 45 days) The Plan of Treatment section includes future care [facility] for the [facility] This section includes future appointments and future orders which are active, pending orscheduled.Future Appointments This section includes appointments that were scheduled to occur 6 months from the date of the Encounter, up to a maximum of 20 appointments. The data comes from all [place] treatment facilities. Appointment Date/Time Appointment Type Appointment Facili ty Name Apr 16, 2022 09:30 AM AMBULATORY - MEDICINE [facility] May 21, 2022 01:00 PM AMBULATORY - MEDICINE [facility] Active, Pending, and Scheduled Orders This section includes a listing of several types of active, pending, and scheduled orders, including clinic medications orders, diagnostic test orders, procedure orders and consult orders; where the start date of the order is 45 days before the date of the Encounter or 45 days after the date of the Encounter. The data comes from all [facility] facilities. Test Date/Time Test Type Test Details Facility Name May 14, 2022 12:00 AM Laboratory - Chemistry MICROALBUMIN CREATI NINE [facility] Order RATIO PANEL URINE (RANDOM) SP Lab Results: +/- 30 days of the encounter This section includes the Chemistry and Hematology Lab Results on record with [place] for the patient. Radiology Reports and Pathology Reports are provided separately, in subsequent sections.Lab Results This section contains the Chemistry/Hematology Results that were resulted 30 days before or 30 daysafter the date of the Encounter. Date/Time Source Result Type Result - Unit Interpretation Reference Range Comment Apr 13, 2022 07:32 AM [facility] TRANSFERRIN, SERUM Specim en Type: SERUM No comment enter ed. Ordering Provid er: ELEUTERIO ORONA Report Released Date/Time: November 24, 2021 10:36 AM Reporting Lab: [facility] [address] [facility] [address] Performing Lab: [facility] [address] [facility] [address] TRANSFERRIN, SERUM 175 L 200-360 Apr 13, 2022 [facility] HEMOGLOBIN A1C Specimen Type: BLOOD 07:32 AM [...] November 24, 2021 09:54 AM Reporting Lab: [facility] [address] [facility] [address] Performing Lab: [address] [address] HEMOGLOBIN A1C 6.6 H 4.0-5.6 Apr 13, 2022 07:32 AM [facility] LIPID PANEL FASTING Speci men Type: SERUM No comment enter ed. Ordering Provid er: ELEUTERIO ORONA Report Released Date/Time: November 24, 2021 09:54 AM Reporting Lab: [address] [address] Performing Lab: [address] [address] CHOLESTEROL 104 <7-199 TRIGLYCERIDE 97 0-150 LDL calculated 59 0-129 CHOL/HDL 4.0 HDL CHOLESTEROL 26 L 40-60 Apr 13, 2022 07:32 [facility] BASIC METABOLIC PANEL Specim en Type: SERUM AM (fasting) No comment enter ed. Ordering Provid er: ELEUTERIO ORONA Report Released Date/Time: November 24, 2021 09:54 AM Reporting Lab: [facility] Mobile [facility] [address] [facility] [address] Performing Lab: [facility] [address] [facility] [address] UREA NITROGEN 28 H 7-25 GLUCOSE 152 H 65-100 SODIUM 140 135-145 POTASSIUM 4.9 3.5-5.0 CHLORIDE 107 100-110 CO2 21 20-30 CREATININE, Serum 1.33 0.50-1.40 eGFR(CKD-EPI 2020) 52 L >60 Apr 13, 2022 07:32 AM [facility] TSH Specimen Type: SERUM No comment enter ed. Ordering Provid er: ELEUTERIO ORONA Report Released Date/Time: November 24, 2021 09:54 AM Reporting Lab: [facility] Mobile IronTRN [place] [facility] [address] [facility] [address] Performing Lab: [place] CNTRL WSTRN [facility] [address] [facility] [address] TSH 1.43 0.35-5.00 Apr 13, 2022 07:32 AM [facility] LIVER FUNCTION Specimen Type: SERUM No comment enter ed. Ordering Provid er: ELEUTERIO ORONA Report Released Date/Time: November 24, 2021 09:54 AM Reporting Lab: [facility]ENTERTRN [facility]ITAL[facility] [address] [facility] [address] Performing Lab: [facility] [address] [facility] [address] PROTEIN,TOTAL 6.6 6.0-8.3 ALBUMIN 2.7 L 3.5-5.0 ALKALINE PHOSPHATASE 122 40-150 AST 24 5-34 ALT 43 <6-55 BILIRUBIN, TOTAL 0.4 0.2-1.2 Apr 13, 2022 07:32 AM [facility] VITAMIN B12 Specimen Type: SERUM No comment enter ed. Ordering Provid er: ELEUTERIO ORONA Report Released Date/Time: November 24, 2021 10:36 AM Reporting Lab: [facility]ITALRNORTHE[facility] CENTERTRN [facility]ITALUSETS [facility] [address] [facility] [address] Performing Lab: [facility]OSPITALRATMORE COMMUNITY HOSPITALN [facility] [address] [facility] [address] VITAMIN B12 313 200-900 Apr 13, 2022 07:32 AM [facility] RETICULOCYTES Specimen Type: BLOOD No comment enter ed. Ordering Provid er: ELEUTERIO ORONA Report Released Date/Time: November 24, 2021 10:36 AM Reporting Lab: [facility]ITALRNORTHE[facility] AL[facility] CENTERTRN [facility]ITALUSETS [facility] [address] [facility] [address] Performing Lab: [facility]N [facility]ITAL[facility] [address] [facility] [address] RETIC % 1.6 0.6-2.0 RETIC, ABS 52.5 30.0-90.0 Ret-He % 33.0 27.9-42.0 Apr 13, 2022 07:32 AM [facility] FERRITIN Specimen Type: SERUM No comment enter ed. Ordering Provid er: ADWOAELEUTERIO Report Released Date/Time: November 24, 2021 10:36 AM Reporting Lab: [facility]OSPITALR LUDWIGTRN [facility]ITALUSETS [facility] [address] [facility] [address] Performing Lab: [facility]OSPITALR LUDWIGN [facility]ITALUSETS [facility] [address] [facility] [address] FERRITIN 526.3 H 20-300 Apr 13, 2022 07:32 AM [facility] IRON & TIBC PANEL Specime n Type: SERUM No comment enter ed. Ordering Provid er: ELEUTERIO ORONA Report Released Date/Time: November 24, 2021 10:36 AM Reporting Lab: [facility] HOSPITALRATMORE COMMUNITY HOSPITALN [facility]USE[facility] [address] [facility] [address] Performing Lab: [facility]OS[facility]ITALR LUDWIGN [facility]ITALUSETS [facility] [address] [facility] [address] TIBC 243 204-475 IRON 46 40-160 Transferrin Saturation 18.9 L 20.0-50 .0 Apr 13, 2022 07:32 AM [facility] CBC AND DIFF (AUTO) Speci men Type: BLOOD No comment enter ed. Ordering Provid er: ADWOAELEUTERIO Report Released Date/Time: November 24, 2021 09:54 AM Reporting Lab: [facility]ITALR LUDWIGTRN [place]ETS [facility] [address] [facility] [address] Performing Lab: [facility]ITALR LUDWIGTRN [facility]ITALUSETS [facility] [address] [facility] [address] WBC 13.21 H 4.50-11.00 RBC 3.32 L 4.23-5.66 HGB 10.0 L 12.8-17 HCT 31.1 L 39.2-50.4 MCV 93.7 82-99 MCHC 32.2 30.8-35.1 PLT 544 H 140-360 RDW-CV 14.6 12.0-16.0 Buchanan, Abs 1.34 H 0.30-1.10 MCH 30.1 26.2-32.6 Neut % 54.1 Lymph % 27.0 Buchanan % 10.1 Eos % 7.5 Baso % [...] smoking and tobacco-related health factors from the [place] facility where the Encounter took place.Current Smoking Status This section includes the most current smoking, or tobacco-related health factor, from the [place] facility where the Encounter took place. Date/Time Current Smoking Status Comment Facility Jul 26, 2020 10:43 AM AK-TOBACCO FORMER USER [facility] Tobacco Use History This section includes a history of the smoking, or tobacco- related health factors, that were collected on or before the date of the Encounter. The data comes from the [place] facility where the Encounter took place. Date/Time Smoking Status/Tobacco Use Comment [facility] Jul 26, 2020 10:43 AM [place]-TOBACCO QUIT 15 YRS OR [facility] Advance Directives: All historical and current Section Date Range: From patient's date of to the date document was created. This section includes ALL of a patient's completed or amended [place] Advance and Rescinded Directives. The entries below indicate that a directive exists for the patient, but an actual copy is not included with this document. The data comes from all [place] facilities. Date Advance Directives Provider Source May 20, 2006 ADVANCE DIRECTIVE BAYLEE SHUKLAFIELD Encounter Notes: All associated encounter notes This section contains the clinical notes associated to the Encounter. 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
--- OUTSIDE RECORDS SUMMARY | 2022-04-21 09:26 | XMS_ITS ---
:1935 Author Organization [facility] Address [address] [place] [id number] Support Name Relationship Address Phone BRIAN CHARLES Unavailable [address] [place] [address] BRIAN CHARLES Unavailable [address] [place] [address] BRIAN CHARLES Unavailable [address] [phone] [place] [address] Insurance Providers: All historical and current Section [...] Number Stinson ANTHEM MEDIGAP MEDEX Dec 29, [id number] [phone] Anamika WALSH PATIENT BCBS OF CT PLAN C 2001 3 SPEEDY ANTH MEDICARE MEDEX Dec 29, [id number] [phone] Anamika WALSH PATIENT BCBS OF CT SUPPLEMEN BRON 2001 3 SPEED[place] BCBS [place] MEDIC[place] MEDEX Dec 29, [id number] [phone] Anamkia GONZALES PATIENT SUPPLEMEN BRONZ 2001 4 SPE[place] MED[place] MED[place] Dec 29, [id number] [phone] Anamika GONZALES PATIENT SUPPLEMEN BRONZ 2001 4 SPEEDY [place] E BCBS OF MEDICARE PSUED May 31, [id number] [phone] Anamika GONZALES PATIENT MASS SUPPLEMEN O 1999 3 SPEEDY [place] MEDEX BRONZ E BLUE CROSS MEDIGAP MEDEX May 31, [id number] [phone] WHEE LER,R PATIENT BLUE [facility] [place] 1999 05 [id number] 4 SPEEDY [facility] MEDICARE MEDICARE PART October 29, PART B [id number] [phone] WHEELE R,R PATIENT (WNR) (M) B 2001 RC08 2 SPEEDY MEDICARE MEDICARE PART October 29, PART B [id number] [phone] WHEELE R,R PATIENT (WNR) (M) B 2001 85A 00 SPEEDY MEDICARE MEDICARE PART October 29, PART B [id number] [id number] WHEELE R,R PATIENT (WNR) (M) B 2001 RC08 00 SPEEDY MEDICARE MEDICARE PART October 29, PART B [id number] [id number] WHEELE R,R PATIENT (WNR) (M) B 2001 85A 00 SPEEDY MEDICARE MEDICARE PART October 29, PART B [id number] [id number] WHEELE R,R PATIENT (WNR) (M) B 2001 RC08 00 SPEEDY MEDICARE MEDICARE PART May 31, PART A [id number] [phone] WHEELE R,R PATIENT (WNR) (M) A 1999 RC08 2 SPEEDY MEDICARE MEDICARE PART May 31, PART A [id number] [id number] WHEELE R,R PATIENT (WNR) (M) A 1999 85A 00 SPEEDY MEDICARE MEDICARE PART May 31, PART A [id number] [phone] WHEELE R,R PATIENT (WNR) (M) A 1999 RC08 00 SPEEDY MEDICARE MEDICARE PART May 31, PART A [id number] [id number] WHEELE R,R PATIENT (WNR) (M) A 1999 85A 00 SPEEDY MEDICARE MEDICARE PART May 31, PART A [id number] [phone] WHEELE R,R PATIENT (WNR) (M) A 1999 RC08 SPEEDY Selected Encounter This section includes the information on record at NE for the Encounter. Date/Time Encounter Type Encounter Reason Provider Source Description Mar 22, 2022 TENS FOUR LEAD PROSTHETICS/ORTHO ICD-10-CM M54.50 SANDEEP BONILLA 02:38 PM TICS Low back pain, J unspecified with Provider Comments: Low back pain, unspecified IHE Encounter Template Text not used by NE Assessments - Encounter Diagnoses This section includes the primary and secondary diagnoses documented for the Encounter. Date/Time Primary/Secondary Diagnosis Name Provider Source Diagnosis Apr 03, 2022 PRIMARY Low back pain, NIMO MCKAY [facility]T RN 02:40 PM unspecified [facility] Plan of Treatment: Future Appointments (+ 6 months) and Future Tests (+/- 45 days) The Plan of Treatment section includes future care activities for the patient from all NE treatmentfacilities. This section includes future appointments and future orders which are active, pending orscheduled.Future Appointments This section includes appointments that were scheduled to occur 6 months from the date of the Encounter, up to a maximum of 20 appointments. The data comes from all NE treatment facilities. Appointment Date/Time Appointment Type Appointment Facili ty Name Mar 27, 2022 09:30 AM AMBULATORY - MEDICINE [facility] Apr 16, 2022 09:30 AM AMBULATORY MEDICINE [facility] May 21, 2022 01:00 PM AMBULATORY - MEDICINE [facility] Lab Results: +/- 30 days of the encounter This section includes the Chemistry and Hematology Lab Results on record with NE for the patient. Radiology Reports and Pathology Reports are provided separately, in subsequent sections.Lab Results This section contains the Chemistry/Hematology Results that were resulted 30 days before or 30 daysafter the date of the Encounter. Date/Time Source Result Type Result - Unit Interpretation Reference Range Comment Apr 13, 2022 07:32 AM [facility] TRANSFERRIN, SERUM Specim en Type: SERUM No comment enter ed. Ordering Provid er: ELEUTERIO ORONA Report Released Date/Time: November 24, 2021 10:36 AM Reporting Lab: [facility] [address] [address] Performing Lab: [facility] [address] [facility] [address] TRANSFERRIN, SERUM 175 L 200-360 Apr 13, 2022 [facility] HEMOGLOBIN A1C Specimen Type: BLOOD 07:32 AM [...] November 24, 2021 09:54 AM Reporting Lab: [facility] [place] [facility] [address] [address] Performing Lab: [place] CNTR [place] [facility] [address] [address] HEMOGLOBIN A1C 6.6 H 4.0-5.6 Apr 13, 2022 07:32 AM [facility] LIPID PANEL FASTING Speci men Type: SERUM No comment enter ed. Ordering Provid er: ELEUTERIO ORONA Report Released Date/Time: November 24, 2021 09:54 AM Reporting Lab: [facility]TRN [place] [facility] [address] [address] Performing Lab: [facility]ALS HOSPITALTRN [place] [facility] [address] [address] CHOLESTEROL 104 <7-199 TRIGLYCERIDE 97 0-150 LDL calculated 59 0-129 CHOL/HDL 4.0 HDL CHOLESTEROL 26 L 40-60 Apr 13, 2022 07:32 AM [facility] TSH Specimen Type: SERUM No comment enter ed. Ordering Provid er: ELEUTERIO ORONA Report Released Date/Time: November 24, 2021 09:54 AM Reporting Lab: [facility] [place] [facility] [address] [address] Performing Lab: [facility] [place] [facility] [address] [address] TSH 1.43 0.35-5.00 Apr 13, 2022 07:32 AM [facility] LIVER FUNCTION Specimen Type: SERUM No comment enter ed. Ordering Provid er: EELUTERIO ORONA Report Released Date/Time: November 24, 2021 09:54 AM Reporting Lab: [facility] [place] [facility] [address] [address] Performing Lab: [facility] [place] [facility] [address] [address] PROTEIN,TOTAL 6.6 6.0-8.3 ALBUMIN 2.7 L 3.5-5.0 ALKALINE PHOSPHATASE 122 40-150 AST 24 5-34 ALT 43 <6-55 BILIRUBIN, TOTAL 0.4 0.2-1.2 Apr 13, 2022 07:32 [facility] BASIC METABOLIC PANEL Specim en Type: SERUM AM (fasting) No comment enter ed. Ordering Provid er: ELEUTERIO ORONA Report Released Date/Time: November 24, 2021 09:54 AM Reporting Lab: [facility] [address] [address] Performing Lab: [facility] [address] [address] UREA NITROGEN 28 H 7-25 GLUCOSE 152 H 65-100 SODIUM 140 135-145 POTASSIUM 4.9 3.5-5.0 CHLORIDE 107 100-110 CO2 21 20-30 CREATININE, Serum 1.33 0.50-1.40 eGFR(CKD-EPI 2020) 52 L >60 Apr 13, 2022 07:32 AM [facility] RETICULOCYTES Specimen Type: BLOOD No comment enter ed. Ordering Provid er: ELEUTERIO ORONA Report Released Date/Time: November 24, 2021 10:36 AM Reporting Lab: [facility] [address] [address] Performing Lab: [facility] [address] [address] RETIC % 1.6 0.6-2.0 RETIC, ABS 52.5 30.0-90.0 Ret-He % 33.0 27.9-42.0 Apr 13, 2022 07:32 AM [facility] VITAMIN B12 Specimen Type: SERUM No comment enter ed. Ordering Provid er: ELEUTERIO ORONA Report Released Date/Time: November 24, 2021 10:36 AM Reporting Lab: [facility]ITAL[facility] [address] [address] Performing Lab: [facility] [address] [address] VITAMIN B12 313 200-900 Apr 13, 2022 07:32 AM [facility] FERRITIN Specimen Type: SERUM No comment enter ed. Ordering Provid er: ELEUTERIO ORONA Report Released Date/Time: November 24, 2021 10:36 AM Reporting Lab: [facility] [place] [facility] [address] [address] Performing Lab: [facility] LUDWIGTRN [facility]ITALUS[facility] [address] [address] FERRITIN 526.3 H 20-300 Apr 13, 2022 07:32 AM [facility] IRON & TIBC PANEL Specime n Type: SERUM No comment enter ed. Ordering Provid er: ELEUTERIO ORONA Report Released Date/Time: November 24, 2021 10:36 AM Reporting Lab: [facility] [place] [facility] [address] [address] Performing Lab: [facility]ITAL[facility] [address] [address] TIBC 243 204-475 IRON 46 40-160 Transferrin Saturation 18.9 L 20.0-50 .0 Apr 13, 2022 07:32 AM [facility] CBC AND DIFF (AUTO) Speci men Type: BLOOD No comment enter ed. Ordering Provid er: ELEUTERIO ORONA Report Released Date/Time: November 24, 2021 09:54 AM Reporting Lab: [facility] LUDWIGTRN [facility]ITALUSETS [facility] [address] [address] Performing Lab: [facility]ITALRST. [facility]N [facility]PITALUSETS [facility] [address] [address] WBC 13.21 H 4.50-11.00 RBC 3.32 L 4.23-5.66 HGB 10.0 L 12.8-17 HCT 31.1 L 39.2-50.4 MCV 93.7 82-99 MCHC 32.2 30.8-35.1 PLT 544 H 140-360 RDW-CV 14.6 12.0-16.0 [place], Abs 1.34 H 0.30-1.10 MCH 30.1 26.2-32.6 Neut % 54.1 Lymph % 27.0 [place] % 10.1 Eos % 7.5 Baso % [...] 26, 2020 10:43 AM NE-TOBACCO FORMER USER [facility] F[facility]SyncSA[facility] Dividend SolarST[facility] Tobacco Use History This section includes a history of the smoking, or tobacco- related health factors, that were collected on or before the date of the Encounter. The data comes from the NE facility where the Encounter took place. Date/Time Smoking Status/Tobacco Use Comment [facility] Jul 26, 2020 10:43 AM NE-TOBACCO QUIT 15 YRS OR [facility] FounderSyncN Dividend [facility]SP[facility]UL[facility] Advance Directives: All historical and current Section [...]
--- OUTSIDE RECORDS SUMMARY | 2022-04-21 09:26 | XMS_ITS ---
:1935 Author Organization Department [facility] Address [address] [place] [address] Support Name Relationship Address Phone BRIAN CHARLES Unavailable [address] [place] [address] BRIAN CHARLES Unavailable [address] [place] [address] BRIAN CHARLES Unavailable [address] [phone] [place] [address] Insurance Providers: All historical and current Section [...] Number Stinson ANTHEM MEDIGAP MEDEX Dec 29, [id number] [phone] Anamika WALSH PATIENT BCBS OF CT PLAN C 2001 3 SPEEDY ANTH MEDICARE MEDEX Dec 29, [id number] [phone] Anamika WALSH PATIENT BCBS OF CT SUPPLEMEN BRONZ 2001 3 SPE[place] BCBS [place] MEDICARE MED[place] Dec 29, [id number] [phone] Anamika GONZALES PATIENT SUPPLEMEN BRONZ 2001 4 SPE[place] MED[place] MED[place] Dec 29, [id number] [phone] Anamika GONZALES PATIENT SUPPLEMEN BRONZ 2001 4 SPEEDY [place] E BCBS OF MEDICARE PSUED May 31, [id number] [phone] Anamika GONZALES PATIENT MASS SUPPLEMEN O 1999 3 SPEEDY [place] MEDEX BRONZ E BLUE CROSS MEDIGAP MEDEX May 31, [id number] [phone] WHEE LER,R PATIENT BLUE [facility] KITA [id number] [facility] MEDICARE MEDICARE PART October 29, PART B [id number] [phone] WHEELE R,R PATIENT (WNR) (M) B 2001 RC08 2 [facility] MEDICARE MEDICARE PART October 29, PART B [id number] [id number] WHEELE R,R PATIENT (WNR) (M) B 2001 85A 00 SPEEDY MEDICARE MEDICARE PART October 29, PART B [id number] [phone] WHEELE R,R PATIENT (WNR) (M) B 2001 RC08 00 [place] MEDICARE MEDICARE PART October 29, PART B [id number] [phone] WHEELE R,R PATIENT (WNR) (M) B 2001 85A 00 SPE[place] MEDICARE MEDICARE PART October 29, PART B [id number] [phone] WHEELE R,R PATIENT (WNR) (M) B 2001 RC08 00 SPE[place] MEDICARE MEDICARE PART May 31, PART A [id number] [phone] WHEELE R,R PATIENT (WNR) (M) A 1999 RC08 2 SPE[place] MEDICARE MEDICARE PART May 31, PART A [id number] [phone] WHEELE R,R PATIENT (WNR) (M) A 1999 85A 00 SPE[place] MEDICARE MEDICARE PART May 31, PART A [id number] [phone] WHEELE R,R PATIENT (WNR) (M) A 1999 RC08 00 [place] MEDICARE MEDICARE PART May 31, PART A [id number] [id number] WHEELE R,R PATIENT (WNR) (M) A 1999 85A 00 SPE[place] MEDICARE MEDICARE PART May 31, PART A [id number] [phone] WHEELE R,R PATIENT (WNR) (M) A 1999 RC SPEEDY Selected Encounter This section includes the information on record at [facility] for the Encounter. Date/Time Encounter Type Encounter Description Reason Provider Source Apr 04, 2022 08:20 Outpatient Encounter ADMIN PAT ACTIVTIES AM (ROM) [facility] Encounter Template Text not used by [facility] Plan of Treatment: Future Appointments (+ 6 months) and Future Tests (+/- 45 days) The Plan of Treatment section includes future care activities for the patient from all [place] treatmentfacilities. This section includes future appointments and future orders which are active, pending orscheduled.Future Appointments This section includes appointments that were scheduled to occur 6 months from the date of the Encounter, up to a maximum of 20 appointments. The data comes from all AR treatment facilities. Appointment Date/Time Appointment Type Appointment Facili ty Name Apr 16, 2022 09:30 AM AMBULATORY - MEDICINE [facility] May 21, 2022 01:00 PM AMBULATORY - MEDICINE [place] Active, Pending, and Scheduled Orders This section includes a listing of several types of active, pending, and scheduled orders, including clinic medications orders, diagnostic test orders, procedure orders and consult orders; where the start date of the order is 45 days before the date of the Encounter or 45 days after the date of the Encounter. The data comes from all [place] treatment facilities. Test Date/Time Test Type Test Details Facility Name May 14, 2022 12:00 AM Laboratory - Chemistry MICROALBUMIN CREATI NINE [place] Order RATIO PANEL URINE (RANDOM) SP Lab Results: +/- 30 days of the encounter This section includes the Chemistry and Hematology Lab Results on record with [place] for the patient. Radiology Reports and Pathology Reports are provided separately, in subsequent sections.Lab Results This section contains the Chemistry/Hematology Results that were resulted 30 days before or 30 daysafter the date of the Encounter. Date/Time Source Result Type Result - Unit Interpretation Reference Range Comment Apr 13, 2022 07:32 AM [place] TRANSFERRIN, SERUM Specim en Type: SERUM No comment enter ed. Ordering Provid er: ELEUTERIO ORONA Report Released Date/Time: November 24, 2021 10:36 AM Reporting Lab: [facility] [address] [facility] [address] Performing Lab: [facility] [address] [facility] [address] TRANSFERRIN, SERUM 175 L 200-360 Apr 13, 2022 07:32 AM [place] LIPID PANEL FASTING Speci men Type: SERUM No comment enter ed. Ordering Provid er: ELEUTERIO ORONA Report Released Date/Time: November 24, 2021 09:54 AM Reporting Lab: [facility]ITALRTAYL[facility]ILITYN [facility]USEKN[facility]ERB[facility] [address] [facility] [address] Performing [facility]: [facility]ENTERUSEKNICKERBOCKER [facility] [address] [facility] [address] CHOLESTEROL 104 <7-199 TRIGLYCERIDE 97 0-150 LDL calculated 59 0-129 CHOL/HDL 4.0 HDL CHOLESTEROL 26 L 40-60 Apr 13, 2022 07:32 AM [place] TSH Specimen Type: SERUM No comment enter ed. Ordering Provid er: ELEUTERIO ORONA Report Released Date/Time: November 24, 2021 09:54 AM Reporting Lab: [facility] [address] [facility] [address] Performing [facility]: [facility] [address] [facility] [address] TSH 1.43 0.35-5.00 Apr 13, 2022 [place] HEMOGLOBIN A1C Specimen Type: BLOOD 07:32 AM [...] November 24, 2021 09:54 AM Reporting Lab: [facility]ENTERUSEKN[facility]ERBOCK[facility] [address] [facility] [address] Performing Lab: [facility] [address] [facility] [address] HEMOGLOBIN A1C 6.6 H 4.0-5.6 Apr 13, 2022 07:32 [place] BASIC METABOLIC PANEL Specim en Type: SERUM AM (fasting) No comment enter ed. Ordering Provid er: ELEUTERIO ORONA Report Released Date/Time: November 24, 2021 09:54 AM Reporting Lab[facility] [address] [address] Performing Lab[facility] [address] [place] [address] UREA NITROGEN 28 H 7-25 GLUCOSE 152 H 65-100 SODIUM 140 135-145 POTASSIUM 4.9 3.5-5.0 CHLORIDE 107 100-110 CO2 21 20-30 CREATININE, Serum 1.33 0.50-1.40 eGFR(CKD-EPI 2020) 52 L >60 Apr 13, 2022 07:32 AM [place] LIVER FUNCTION Specimen Type: SERUM No comment enter ed. Ordering Provid er: ELEUTERIO ORONA Report Released Date/Time: November 24, 2021 09:54 AM Reporting Lab: [facility] [address] [facility] [address] Performing Lab: [address] [address] PROTEIN,TOTAL 6.6 6.0-8.3 ALBUMIN 2.7 L 3.5-5.0 ALKALINE PHOSPHATASE 122 40-150 AST 24 5-34 ALT 43 <6-55 BILIRUBIN, TOTAL 0.4 0.2-1.2 Apr 13, 2022 07:32 AM [place] RETICULOCYTES Specimen Type: BLOOD No comment enter ed. Ordering Provid er: ELEUTERIO ORONA Report Released Date/Time: November 24, 2021 10:36 AM Reporting Lab: [facility] [address] [facility] [address] Performing Lab: [address] [address] RETIC % 1.6 0.6-2.0 RETIC, ABS 52.5 30.0-90.0 Ret-He % 33.0 27.9-42.0 Apr 13, 2022 07:32 AM [place] VITAMIN B12 Specimen Type: SERUM No comment enter ed. Ordering Provid er: ELEUTERIO ORONA Report Released Date/Time: November 24, 2021 10:36 AM Reporting Lab: [address] [address] Performing Lab: [address] [address] VITAMIN B12 313 200-900 Apr 13, 2022 07:32 AM [place] FERRITIN Specimen Type: SERUM No comment enter ed. Ordering Provid er: ELEUTERIO ROONA Report Released Date/Time: November 24, 2021 10:36 AM Reporting Lab: [facility] [place] [facility] [address] [facility] [address] Performing Lab: [facility] LUDWIGTRN [facility] CENTERUSETS [facility] [address] [facility] [address] FERRITIN 526.3 H 20-300 Apr 13, 2022 07:32 AM [place] IRON & TIBC PANEL Specime n Type: SERUM No comment enter ed. Ordering Provid er: ELEUTERIO ORNOA Report Released Date/Time: November 24, 2021 10:36 AM Reporting Lab: [facility] [place] [facility] [address] [facility] [address] Performing Lab: [facility] CENTERUSETS [facility] [address] [facility] [address] TIBC 243 204-475 IRON 46 40-160 Transferrin Saturation 18.9 L 20.0-50 .0 Apr 13, 2022 07:32 AM [place] CBC AND DIFF (AUTO) Speci men Type: BLOOD No comment enter ed. Ordering Provid er: ELEUTERIO ORONA Report Released Date/Time: November 24, 2021 09:54 AM Reporting Lab: [facility] LUDWIGTRN [facility] CENTERUSETS [facility] [address] [facility] [address] Performing Lab: [facility]ITALRTAYLOR [facility] FACILITYN [facility] CENTERUSETS [facility] [address] [facility] [address] WBC 13.21 H 4.50-11.00 RBC 3.32 L 4.23-5.66 HGB 10.0 L 12.8-17 HCT 31.1 L 39.2-50.4 MCV 93.7 82-99 MCHC 32.2 30.8-35.1 PLT 544 H 140-360 RDW-CV 14.6 12.0-16.0 [place], Abs 1.34 H 0.30-1.10 MCH 30.1 26.2-32.6 Neut % 54.1 Lymph % 27.0 [place] % 10.1 Eos % 7.5 Baso % [...] 26, 2020 10:43 AM AR-TOBACCO FORMER USER [facility] Tobacco Use History This section includes a history of the smoking, or tobacco- related health factors, that were collected on or before the date of the Encounter. The data comes from the [place] facility where the Encounter took place. Date/Time Smoking Status/Tobacco Use Comment [facility] Jul 26, 2020 10:43 AM AR-TOBACCO QUIT 15 YRS OR AR CNTRTAYLOR HARDIN SECURE MEDICAL FACILITYN FAAH PharmaUSETS [facility] Advance Directives: All historical and current [...] Encounter. Date/Time Encounter Note(s) Provider Source Apr 04, 2022 08:20 AM ADMINISTRATIVE NOTE: BROOK MCFADDEN [facility] WSTRN LOCAL TITLE: CCC: SCHEDULING ADMINISTRATION [facility] STANDARD TITLE: ADMINISTRATIVE NOTE DATE OF NOTE: APR 04, 2022@08:20:16 ENTRY DATE: APR 04, 2022@08:21:50 AUTHOR: BROOK MCFADDEN EXP COSIGNER: URGENCY: STATUS: COMPLETED CCC: SCHEDULING ADMINISTRATION Has ADDENDA Type of call: ADMINISTRATIVE. PCMM Provider Info: LOCAL - [place] ([id number]) PACT: SO PACT 8 *WH* (Focus: [facility]) Designated Pcp: SANDEEP KAPADIA Ethnographer: CINDY BAER Clinical Associate: KATHRYN SALDAÑA PHON [id number] Heel Boom Operator: ADAM MATA PACT Clinical Pharmacist: DONNY JACK Clinical POC: Clinical Associate KATHRYN MCKEON PHONE:[phone] Administrative POC: Heel Boom Operator ADAM MATA *PATIENT called in for JILLIANMART Gee ([phone]) . The following identifiers were used to verify th is patient: DOB. PRASADN. Contact Caller Response: ADM CALL RESOLVED Caller Area: [place] [facility] Comments: called to speak with his nurse regarding his back. This is an ongoing issue since july. He was sent to a pain speci alist but states it is not helping. Author: BROOK MCFADDEN Evaluation/Management Code: HC PRO PHONE CALL 5- 10 MIN ([id number]). Starting at: 04/04/2022 @ 8:20:16 AM Ending at: 04/04/2022 @ 8:21:40 AM Length: 1 minutes. Chief Complaint: Not applicable to call. Class Code: Other specified counseling. /selam/ BROOK MCFADDEN VISN1 [facility] Signed: 04/04/2022 08:21 Receipt Acknowledged By: * AWAITING SIGNATURE * SANDEEP KAPADIA 04/05/2022 16:30 /selam/ TANYA LUO RN-BC REGISTERED NURSE 04/05/2022 ADDENDUM STATUS: COMPLETED Called and he report s he spoke to Dr Gutiérrez and he has plan of care in place and will be following up with him on . /selam/ TANYA LUO RN-SHARON REGISTERED NURSE Signed: 04/05/2022 16:32
--- OUTSIDE RECORDS SUMMARY | 2022-04-21 09:27 | XMS_ITS ---
:1935 Author Organization Department [facility] rs Address [address] [place] [address] Support Name Relationship Address Phone BRIAN CHARLES Unavailable [address] [place] [address] BRIAN CHARLES Unavailable [address] [place] [address] BRIAN CHARLES Unavailable [address] [phone] [place] [address] Insurance Providers: All historical and current Section [...] Number [place] ANTHEM MEDIGAP MEDEX Dec 29, [id number] [phone] Anamika WALSH PATIENT BCBS OF CT PLAN C 2001 3 SPEEDY [facility] MEDICARE MEDEX Dec 29, [id number] [phone] Anamika WALSH PATIENT BCBS OF CT SUPPLEMEN BRON 2001 3 [place] Dec 29, [id number] [phone] Anamika GONZALES PATIENT SUPPLEMEN BRONZ 2001 4 [place] Dec 29, [id number] [phone] Anamika GONZALES PATIENT SUPPLEMEN BRONZ 2001 4 SPEEDY [place] BCBS OF MEDICARE PSUED May 31, [id number] [phone] Anamika GONZALES PATIENT [place] SUPPLEMEN O 1999 3 SPEEDY [place] MEDEX BRONZ E [place] MEDIGAP MEDEX May 31, [id number] [phone] WHEE LER,R PATIENT [facility] KITA 1999 [id number] OBERT SHI[place] OF [place] MEDICARE MEDICARE PART October 29, PART B [id number] [phone] WHEELE R,R PATIENT (WNR) (M) B 2001 RC08 2 OBERT MEDICARE MEDICARE PART October 29, PART B [id number] [phone] WHEELE R,R PATIENT (WNR) (M) B 2001 85A 00 SPEEDY MEDICARE MEDICARE PART October 29, PART B [id number] WHEELE R,R PATIENT (WNR) (M) B 2001 RC08 [place] MEDICARE MEDICARE PART October 29, PART B [id number] [phone] WHEELE R,R PATIENT (WNR) (M) B 2001 85A 00 SPEEDYERT MEDICARE MEDICARE PART October 29, PART B [id number] WHEELE R,R PATIENT (WNR) (M) B 2001 RC08 00 SPEED[place] MEDICARE MEDICARE PART May 31, PART A [id number] [phone] WHEELE R,R PATIENT (WNR) (M) A 1999 RC08 2 SPEED[place] MEDICARE MEDICARE PART May 31, PART A [id number] [phone] WHEELE R,R PATIENT (WNR) (M) A 1999 85A 00 SPEED[place] MEDICARE MEDICARE PART May 31, PART A [id number] [phone] WHEELE R,R PATIENT (WNR) (M) A 1999 RC08 00 SPE[place] MEDICARE MEDICARE PART May 31, PART A [id number] [phone] WHEELE R,R PATIENT (WNR) (M) A 1999 85A 00 SPEED[place] MEDICARE MEDICARE PART May 31, PART A [id number] [phone] WHEELE R,R PATIENT (WNR) (M) A 1999 RC SPEEDY Selected Encounter This section includes the information on record at [place] for the Encounter. Date/Time Encounter Type Encounter Reason Provider Source Description Apr 16, 2022 OFFICE O/P EST PAIN CLINIC ICD-10-CM [place] 09:30 AM MOD 30-39 MIN S32.020S Wedge ETH B compression fracture of second lum vertebra, sequela with Provider Comments: Wedge Compression Fracture of second Lumbar Vertebra, Sequela IHE Encounter Template Text not used by [facility] Assessments - Encounter Diagnoses This section includes the primary and secondary diagnoses documented for the Encounter. Date/Time Primary/Secondary Diagnosis Name Provider Source Diagnosis Apr 16, 2022 PRIMARY Wedge compression Julian MENENDEZ [facility] 09:51 AM fracture of ETH B [place] [facility] second lum vertebra, sequela Apr 16, 2022 SECONDARY Wedge compression Julian MENENDEZ [facility] 09:51 AM fracture of third ETH B [place] [facility] lumbar vertebra, sequela Plan of Treatment: Future Appointments (+ 6 months) and Future Tests (+/- 45 days) The Plan of Treatment section includes future care activities for the patient from all [place] treatmentfacilities. This section includes future appointments and future orders which are active, pending orscheduled.Future Appointments This section includes appointments that were scheduled to occur 6 months from the date of the Encounter, up to a maximum of 20 appointments. The data comes from all [place] treatment facilities. Appointment Date/Time Appointment Type Appointment Facili ty Name May 21, 2022 01:00 PM AMBULATORY - MEDICINE [place] Active, Pending, and Scheduled Orders This section includes a listing of several types of active, pending, and scheduled orders, including clinic medications orders, diagnostic test orders, procedure orders and consult orders; where the start date of the order is 45 days before the date of the Encounter or 45 days after the date of the Encounter. The data comes from all [place] treatment facilities. Test Date/Time Test Type Test Details Facility Name May 14, 2022 12:00 AM Laboratory - Chemistry MICROALBUMIN CREATI NINE [place] Order RATIO PANEL URINE (RANDOM) SP Lab [...] Range Comment Apr 13, 2022 07:32 AM [place] TRANSFERRIN, SERUM Specim en Type: SERUM No comment enter ed. Ordering Provid er: ELEUTERIO ORONA Report Released Date/Time: November 24, 2021 10:36 AM Reporting Lab: [facility] [place] [facility] [address] [facility] [address] Performing Lab: [facility] [place] [facility] [address] [facility] [address] TRANSFERRIN, SERUM 175 L 200-360 Apr 13, 2022 [place] HEMOGLOBIN A1C Specimen Type: BLOOD 07:32 AM [...] 09:54 AM Reporting [facility]: [facility] [address] [facility] [address] Performing [facility]: [facility] [address] [facility] [address] HEMOGLOBIN A1C 6.6 H 4.0-5.6 Apr 13, 2022 07:32 AM [place] LIPID PANEL FASTING Speci men Type: SERUM No comment enter ed. Ordering Provid er: ELEUTERIO ORONA Report Released Date/Time: November 24, 2021 09:54 AM Reporting [facility]: [facility] [address] [facility] [address] Performing Lab: [facility] [address] [facility] [address] CHOLESTEROL 104 <7-199 TRIGLYCERIDE 97 0-150 LDL calculated 59 0-129 CHOL/HDL 4.0 HDL CHOLESTEROL 26 L 40-60 Apr 13, 2022 07:32 AM [place] TSH Specimen Type: SERUM No comment enter ed. Ordering Provid er: ELEUTERIO ORONA Report Released Date/Time: November 24, 2021 09:54 AM Reporting Lab: [facility] [address] [facility] [address] Performing Lab: [facility] [address] [facility] [address] TSH 1.43 0.35-5.00 Apr 13, 2022 07:32 [place] BASIC METABOLIC PANEL Specim en Type: SERUM AM (fasting) No comment enter ed. Ordering Provid er: ELEUTERIO ORONA Report Released Date/Time: November 24, 2021 09:54 AM Reporting Lab: [facility] [address] [facility] [address] Performing Lab: [facility] [address] [facility] [address] UREA NITROGEN 28 H 7-25 GLUCOSE 152 H 65-100 SODIUM 140 135-145 POTASSIUM 4.9 3.5-5.0 CHLORIDE 107 100-110 CO2 21 20-30 CREATININE, Serum 1.33 0.50-1.40 eGFR(CKD-EPI 2020) 52 L >60 Apr 13, 2022 07:32 AM [place] LIVER FUNCTION Specimen Type: SERUM No comment enter ed. Ordering Provid er: ELEUTERIO ORONA Report Released Date/Time: November 24, 2021 09:54 AM Reporting Lab: [facility] [address] [facility] [address] Performing Lab: [facility] [address] [facility] [address] PROTEIN,TOTAL 6.6 6.0-8.3 ALBUMIN 2.7 L 3.5-5.0 ALKALINE PHOSPHATASE 122 40-150 AST 24 5-34 ALT 43 <6-55 BILIRUBIN, TOTAL 0.4 0.2-1.2 Apr 13, 2022 07:32 AM [place] VITAMIN B12 Specimen Type: SERUM No comment enter ed. Ordering Provid er: ELEUTERIO ORONA Report Released Date/Time: November 24, 2021 10:36 AM Reporting Lab: [facility] [address] [facility] [address] Performing Lab: [address] [address] VITAMIN B12 313 200-900 Apr 13, 2022 07:32 AM [place] RETICULOCYTES Specimen Type: BLOOD No comment enter ed. Ordering Provid er: ELEUTERIO ORONA Report Released Date/Time: November 24, 2021 10:36 AM Reporting Lab: [facility] [place] [facility] [address] [facility] [address] Performing Lab: [facility] [place] [facility] [address] [facility] [address] RETIC % 1.6 0.6-2.0 RETIC, ABS 52.5 30.0-90.0 Ret-He % 33.0 27.9-42.0 Apr 13, 2022 07:32 AM [place] FERRITIN Specimen Type: SERUM No comment enter ed. Ordering Provid er: ELEUTERIO ORONA Report Released Date/Time: November 24, 2021 10:36 AM Reporting Lab: [facility] [place] [facility] [address] [facility] [address] Performing Lab: [facility]ITAL[facility] TRN [place] [facility] [address] [facility] [address] FERRITIN 526.3 H 20-300 Apr 13, 2022 07:32 AM [place] IRON & TIBC PANEL Specime n Type: SERUM No comment enter ed. Ordering Provid er: ELEUTERIO ORONA Report Released Date/Time: November 24, 2021 10:36 AM Reporting Lab: [facility] [place] [facility] [address] [facility] [address] Performing Lab: [facility] [place] [facility] [address] [facility] [address] TIBC 243 204-475 IRON 46 40-160 Transferrin Saturation 18.9 L 20.0-50 .0 Apr 13, 2022 07:32 AM [place] CBC AND DIFF (AUTO) Speci men Type: BLOOD No comment enter ed. Ordering Provid er: ELEUTERIO ORONA Report Released Date/Time: November 24, 2021 09:54 AM Reporting Lab: [facility] [place] [facility] [address] [facility] [address] Performing Lab: [facility] [place] [facility] [address] [facility] [address] WBC 13.21 H 4.50-11.00 RBC 3.32 L 4.23-5.66 HGB 10.0 L 12.8-17 HCT 31.1 L 39.2-50.4 MCV 93.7 82-99 MCHC 32.2 30.8-35.1 PLT 544 H 140-360 RDW-CV 14.6 12.0-16.0 [place], Abs 1.34 H 0.30-1.10 MCH 30.1 26.2-32.6 Neut % 54.1 Lymph % 27.0 [place] % 10.1 Eos % 7.5 Baso % [...] 26, 2020 10:43 AM IN-TOBACCO FORMER USER [facility] Tobacco Use History This section includes a history of the smoking, or tobacco- related health factors, that were collected on or before the date of the Encounter. The data comes from the [place] facility where the Encounter took place. Date/Time Smoking Status/Tobacco Use Comment [facility] Jul 26, 2020 10:43 AM [facility] Advance Directives: All historical and [...] Encounter. Date/Time Encounter Note(s) Provider Source Apr 16, 2022 09:32 PAIN MEDICINE OUTPATIENT NOTE: Julian MENENDEZ B [facility] AM LOCAL TITLE: PAIN CLINIC NOTE [facility] STANDARD TITLE: PAIN MEDICINE OUTPATIENT NOTE DATE OF NOTE: APR 16, 2022@09:32 ENTRY DATE: APR 16, 2022@09:32:31 AUTHOR: DION MENENDEZ EXP COSIGNER: URGENCY: STATUS: COMPLETED PAIN CLINIC NOTE Has ADDENDA PLAN FROM LAST VISIT Started patch 6 days CURRENT Says pain is better. Daughter adds he is not moving much He says he is out of breath, gets the shakeys He appeared comfortable seated in an easy chair with Jayleen behind chair He spoke in full sentences w ith no obvious shortness of breath, no indication of labored breathing. PAIN-RELATED CONDITIONS Healing compression fractures, L2-3 PAIN-RELATED MEDICATIONS Butrans 5 mcg/hour, started 6 days ago SOCIAL ====== -Unchanged APR 16, 2022 Lives alone Support from family daily [employer] FROM Nov TO May Rated disabilities RATED DISABILITIES - NONE FOUND PEG Date Q1 Q2 Q[address] Intervention 04/16/22 1 CLINICAL ======== UDS PDMP PLAN ======= Pain from compression fracture due to falls: res olving -[place] says the pain is gone and he may not ne ed to continue to use Butrans -Instructions to notify me if pain recurs or new issue arises -Otherwise no need for follow up from Pain Servi ce Shortness of breath and feeling weak -Likely related to deconditioning over the last 6 weeks -He feels he is ready to start PHYSICAL THERAPY again; will add them as cosigners. and daughter repeated the plan b ack to me and had no further questions at end of appointment. FOLLOW-UP None needed at this time. 30 minute appointment to update history from lenka fairchild, clinical mental health counselor and educate, review interval notes, and document encounter. 05/21/2022 13:00 CWM/SO/PACT EIGHT WH MEDICATIONS Active Outpatient Medications (including Supplie s): Issue Date Status Last Fill Active Outpatient Medications Refills Expiratio n 1) ACCU-CHEK GUIDE (GLUCOSE) TEST STRIP ACTIVE I ssu:05-11-21 Qty: 50 for 180 days Sig: USE 1 STRIP Refills: 1 Last:05-12-21 TO TEST BLOOD SUGARS ONCE DAILY Expr: 2 NEEDED [NEW VERSION OF TEST STRIP TO USE WITH GUIDE ME METER] 2) ATORVASTATIN CALCIUM 80MG TAB Qty: 45 ACTIVE Issu:10-09-21 for 90 days Sig: TAKE ONE-HALF TABLET Refills: 1 Last:12-25-21 BY MOUTH ONCE DAILY FOR CHOLESTEROL Expr: 3) BUPRENORPHINE 20MCG/HR PATCH Qty: 4 for ACTIV E Issu:04-05-22 28 days Sig: APPLY 1 PATCH TO SKIN Refills: 0 L ast:04-06-22 EVERY 7 DAYS (REMOVE PATCH BEFORE Expr:05-05-22 APPLYING A NEW PATCH) 4) DILTIAZEM (EQV-TIAZAC) 240MG 24HR CAP ACTIVE Issu:10-19-21 Qty: 90 for 90 days Sig: TAKE ONE Refills: [address]:04-07-22 CAPSULE BY MOUTH ONCE DAILY Expr:10-20-22 5) DOXAZOSIN MESYLATE 2MG TAB Qty: 30 for ACTIVE Issu:10-09-21 30 days Sig: TAKE ONE TABLET BY MOUTH Refills: 2 Last:10-29-21 ONCE DAILY Expr:10-10-22 6) FUROSEMIDE 20MG TAB Qty: 90 for 90 days ACTIV E Issu:10-09-21 Sig: TAKE ONE TABLET BY MOUTH EVERY Refills: 0 Last:03-20-22 DAY TO REMOVE FLUID/CONTROL BLOOD Expr:10-10-22 PRESSURE 7) LIDOCAINE 5% PATCH Qty: 30 for 30 days ACTIVE Issu:03-14-22 Sig: APPLY 1 PATCH TOPICALLY ONCE Refills: [address]:03-14-22 DAILY NEEDED (LEAVE PATCH ON FOR 12 Expr: HOURS, THEN REMOVE PATCH) 8) METOPROLOL TARTRATE 25MG TAB Qty: 180 ACTIVE Issu:10-09-21 for 90 days Sig: TAKE ONE TABLET BY Refills: 1 Last:12-25-21 MOUTH TWICE DAILY FOR BLOOD Expr:10-10-22 PRESSURE/HEART 9) MOMETASONE FUROATE 220MCG ORAL INHL 60 ACTIVE Issu:11-24-21 Qty: 1 for 30 days Sig: INHALE 2 Refills: 8 Las t:03-07-22 PUFFS BY MOUTH TWICE DAILY --RINSE Expr:2 3 MOUTH AFTER EACH USE 10) OMEPRAZOLE 20MG CAP,EC Qty: 90 for 90 ACTIVE Issu:10-19-21 days Sig: TAKE ONE CAPSULE BY MOUTH Refills: 2 Last:03-13-22 DAILY Expr:10-20-22 11) PSYLLIUM SF ORAL PWD Qty: 300 for 30 ACTIVE Issu:10-19-21 days Sig: TAKE 2 TEASPOONFULS BY Refills: [address]:10-19-21 MOUTH ONCE DAILY NEEDED (MIX WITH Expr:10-20 AT LEAST 8OZ. OF WATER OR OTHER FLUID) 12) SIMVASTATIN 40MG TAB Qty: 45 for 90 HOLD Iss u:06-07-21 days Sig: TAKE ONE-HALF TABLET BY Refills: 1 MOUTH AT BEDTIME Expr:06-08-22 13) VALSARTAN 320MG TAB Qty: 90 for 90 days ACTI VE Issu:10-09-21 Sig: TAKE ONE TABLET BY MOUTH ONCE Refills: 1 L ast:12-25-21 DAILY *THIS IS A HIGHER DOSE* Expr:10-10-22 14) ZAFIRLUKAST 20MG TAB Qty: 180 for 90 ACTIVE Issu:10-09-21 days Sig: TAKE ONE TABLET BY MOUTH Refills: 1 L ast:12-18-21 TWICE DAILY Expr:10-10-22 Start Date Active Non-VA Medications Refills Expiration 1) Non-VA ASPIRIN 81MG EC TAB SiMG BY ACTIV E MOUTH 2) Non-VA MULTIVITAMIN/MINERALS CAP/TAB ACTIVE Si TABLET BY MOUTH 3) Non-VA OTHER CAP/TAB Sig: EITHER ACTIVE CELEBREX,NAPROSYN OR IBUPROFEN TWICE DAILY 4) Non-VA OTHER CAP/TAB Sig: NEXIUM 40MG ACTIVE DAILY 18 Total Medications ACTIVE PROBLEMS Active problems - Computerized Problem List is t he source for the followin. Under care of multiple providers 2. Trimalleolar fracture 3. 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 Unspecified disorder of kidney and ureter 6. Osteoarthritis * 7. Personal History of Colonic Polyps 8. Mixed hyperlipidemia 9. Chronic kidney disease d ue to type 2 diabetes mellitus (SNOMED CT 7617767305 10. Essential hypertension (SNOMED CT 06235978) 11. GERD 12. Asthma, unspecified type , without mention of status asthmaticus or acute exa /es/ DION B MD SHON PHYSICIAN Signed: 04/16/2022 09:52 Receipt Acknowledged By: * AWAITING SIGNATURE * SHIRIN CAMACHO * AWAITING SIGNATURE * SANDEEP KAPADIA 04/17/2022 ADDENDUM STATUS: COMPLETED Patient indicated he wants p hysical therapy due to acute deconditioning from his recent compression fractures. Please call Mr. Catarina beckham and daughter to verify that he wants home physical therapy and order as appropriate. Thank you. /selam/ DION MENENDEZ MD PHYSICIAN Signed: 04/17/2022 13:06 Receipt Acknowledged By: 04/18/2022 09:37 /selam/ TANYA LUO RN-BC REGISTERED NURSE * AWAITING SIGNATURE * SANDEEP KAPADIA Evan 04/18/2022 ADDENDUM STATUS: COMPLETED Called and he reports that he is current ly receiving home physical therapy services. [place] re ports that they are encouraging him to increase his activity due to becomes short of breath when goi ng short distances within his home. no further action needed from PACT team at this time. /selam/ TANYA LUO RN-BC REGISTERED NURSE Signed: 04/18/2022 09:41
--- OUTSIDE RECORDS SUMMARY | 2022-04-21 09:27 | XMS_ITS | Encounter Summary ---
:1935 Author Organization [facility] Address [address] [place] [address] Support Name Relationship Address Phone BRIAN CHARLES Unavailable [address] [place] [address] BRIAN CHARLES Unavailable [address] [place] [address] BRIAN CHARLES Unavailable [address] [phone] [place] [address] Insurance Providers: All historical and current Section [...] Number Stinson ANTHEM MEDIGAP MEDEX Dec 29, [id number] [phone] Anamika WALSH PATIENT BCBS OF CT PLAN C 2001 3 SPEEDY ANTHEM MEDICARE MEDEX Dec 29, [id number] [phone] Anamika WALSH PATIENT BCBS OF CT SUPPLEMEN BRONZ 2001 3 SPEEDY HER[place] E BCBS [place] MEDICARE MEDEX Dec 29, [id number] [phone] Anamika GONZALES PATIENT SUPPLEMEN BRONZ [id number] 4 SPEEDY [place] E BCBS [place] MED[place] MED[place] Dec 29, [id number] [phone] Anamika GONZALES PATIENT SUPPLEMEN BRONZ 2001 4 SPEEDY HERMINIA E BCBS OF MEDICARE PSUED May 31, [id number] [phone] Anamika GONZALES PATIENT [place] SUPPLEMEN O [id number] 3 SPEEDY HERMINIA MEDEX BRONZ E BLUE CROSS MEDIGAP MEDEX May 31, [id number] [phone] WHEE LER,R PATIENT [facility] Desmond MESA 1999 05 [id number] 4 OBERT SHIELD OF E [place] MEDICARE MEDICARE PART October 29, PART B [id number] [phone] WHEELE R,R PATIENT (WNR) (M) B 2001 RC08 2 OBERT MEDICARE MEDICARE PART October 29, PART B [id number] [phone] WHEELE R,R PATIENT (WNR) (M) B 2001 85A 00 SPEEDY MEDICARE MEDICARE PART October 29, PART B [id number] [phone] WHEELE R,R PATIENT (WNR) (M) B 2001 RC08 00 [facility] MEDICARE MEDICARE PART October 29, PART B [id number] [phone] WHEELE R,R PATIENT (WNR) (M) B 2001 85A 00 OBERT MEDICARE MEDICARE PART October 29, PART B [id number] [phone] WHEELE R,R PATIENT (WNR) (M) B 2001 RC08 00 [facility] MEDICARE MEDICARE PART May 31, PART A [id number] [phone] WHEELE R,R PATIENT (WNR) (M) A 1999 RC08 2 [facility] MEDICARE MEDICARE PART May 31, PART A [id number] [phone] WHEELE R,R PATIENT (WNR) (M) A 1999 85A 00 OBERT MEDICARE MEDICARE PART May 31, PART A [id number] [id number] WHEELE R,R PATIENT (WNR) (M) A 1999 RC08 00 SPEEDY MEDICARE MEDICARE PART May 31, PART A [id number] [phone] WHEELE R,R PATIENT (WNR) (M) A 1999 85A 00 SPEEDY MEDICARE MEDICARE PART May 31, PART A [id number] [phone] WHEELE R,R PATIENT (WNR) (M) A 1999 RC08 00 SPEEDY Selected Encounter This section includes the information on record at [place] for the Encounter. Date/Time Encounter Type Encounter Reason Provider Source Description Apr 17, 2022 [facility] ICD-10-CM KALPANA CALVO 12:17 PM ASSMT&MGMT 5-10 J45.998 Other NE F asthma with Provider Comments: Other Asthma IHE Encounter Template Text not used by [place] Assessments - Encounter Diagnoses This section includes the primary and secondary diagnoses documented for the Encounter. Date/Time Primary/Secondary Diagnosis Name Provider Source Diagnosis Apr 17, 2022 PRIMARY Other asthma JAVIER CALVO [facility] 12:19 PM E F CLINIC (631GE) Plan of Treatment: Future Appointments (+ 6 months) and Future Tests (+/- 45 days) The Plan of Treatment section includes future care activities for the patient from all [place] [facility]. This section includes future appointments and future orders which are active, pending orscheduled.Future Appointments This section includes appointments that were scheduled to occur 6 months from the date of the Encounter, up to a maximum of 20 appointments. The data comes from all [place] treatment facilities. Appointment Date/Time Appointment Type Appointment Facili ty Name May 21, 2022 01:00 PM AMBULATORY - MEDICINE [facility] Active, Pending, and Scheduled Orders This section includes a listing of several types of active, pending, and scheduled orders, including clinic medications orders, diagnostic test orders, procedure orders and consult orders; where the start date of the order is 45 days before the date of the Encounter or 45 days after the date of the Encounter. The data comes from all [place] treatment facilities. Test Date/Time Test Type Test Details Facility Name May 14, 2022 12:00 AM Laboratory - Chemistry MICROALBUMIN CREATI NINE [facility] Order RATIO PANEL URINE (RANDOM) SP Lab Results: +/- 30 days of the encounter This section includes the Chemistry and Hematology Lab Results on record with [place] for the patient. Radiology Reports and Pathology Reports are provided separately, in subsequent sections.Lab Results This section contains the Chemistry/Hematology Results that were resulted 30 days before or 30 daysafter the date of the Encounter. Date/Time Source Result Type Result - Unit Interpretation Reference Range Comment Apr 13, 2022 07:32 AM [facility] TRANSFERRIN, SERUM Specim en Type: SERUM No comment enter ed. Ordering Provid er: ELEUTERIO ORONA Report Released Date/Time: November 24, 2021 10:36 AM Reporting Lab: [facility] [address] [facility] [address] Performing Lab: [facility] [address] [facility] [address] TRANSFERRIN, SERUM 175 L 200-360 Apr 13, 2022 07:32 AM [facility] LIPID PANEL FASTING Speci men Type: SERUM No comment enter ed. Ordering Provid er: ELEUTERIO ORONA Report Released Date/Time: November 24, 2021 09:54 AM Reporting Lab: [facility] [address] [facility] [address] Performing Lab: [facility] [address] [facility] [address] CHOLESTEROL 104 <7-199 TRIGLYCERIDE 97 0-150 LDL calculated 59 0-129 CHOL/HDL 4.0 HDL CHOLESTEROL 26 L 40-60 Apr 13, 2022 [facility] HEMOGLOBIN A1C Specimen Type: BLOOD 07:32 AM [...] November 24, 2021 09:54 AM Reporting Lab: [facility] [address] [facility] [address] Performing Lab: [facility] [address] [facility] [address] HEMOGLOBIN A1C 6.6 H 4.0-5.6 Apr 13, 2022 07:32 AM [facility] TSH Specimen Type: SERUM No comment enter ed. Ordering Provid er: ELEUTERIO ORONA Report Released Date/Time: November 24, 2021 09:54 AM Reporting Lab: [facility] [address] [facility] [address] Performing Lab: [facility] [address] [facility] [address] TSH 1.43 0.35-5.00 Apr 13, 2022 07:32 [facility] BASIC METABOLIC PANEL Specim en Type: SERUM AM (fasting) No comment enter ed. Ordering Provid er: ELEUTERIO ORONA Report Released Date/Time: November 24, 2021 09:54 AM Reporting Lab: [facility] [address] [facility] [address] Performing Lab: [address] [address] UREA NITROGEN 28 H 7-25 GLUCOSE 152 H 65-100 SODIUM 140 135-145 POTASSIUM 4.9 3.5-5.0 CHLORIDE 107 100-110 CO2 21 20-30 CREATININE, Serum 1.33 0.50-1.40 eGFR(CKD-EPI 2020) 52 L >60 Apr 13, 2022 07:32 AM [facility] LIVER FUNCTION Specimen Type: SERUM No comment enter ed. Ordering Provid er: ELEUTERIO ORONA Report Released Date/Time: November 24, 2021 09:54 AM Reporting Lab: [address] [address] Performing Lab: [address] [address] PROTEIN,TOTAL 6.6 6.0-8.3 ALBUMIN 2.7 L 3.5-5.0 ALKALINE PHOSPHATASE 122 40-150 AST 24 5-34 ALT 43 <6-55 BILIRUBIN, TOTAL 0.4 0.2-1.2 Apr 13, 2022 07:32 AM [facility] RETICULOCYTES Specimen Type: BLOOD No comment enter ed. Ordering Provid er: ELEUTERIO ORONA Report Released Date/Time: November 24, 2021 10:36 AM Reporting Lab: [address] [address] Performing Lab: [address] [address] RETIC % 1.6 0.6-2.0 RETIC, ABS 52.5 30.0-90.0 Ret-He % 33.0 27.9-42.0 Apr 13, 2022 07:32 AM [facility] VITAMIN B12 Specimen Type: SERUM No comment enter ed. Ordering Provid er: ELEUTERIO ORONA Report Released Date/Time: November 24, 2021 10:36 AM Reporting Lab: [address] [address] Performing Lab: [facility] [place] [facility] [address] [facility] [address] VITAMIN B12 313 200-900 Apr 13, 2022 07:32 AM [facility] IRON & TIBC PANEL Specime n Type: SERUM No comment enter ed. Ordering Provid er: ELEUTERIO ORONA Report Released Date/Time: November 24, 2021 10:36 AM Reporting Lab: [facility] [place] [facility] [address] [facility] [address] Performing Lab: [place] [facility] [place] [facility] [address] [facility] [address] TIBC 243 204-475 IRON 46 40-160 Transferrin Saturation 18.9 L 20.0-50 .0 Apr 13, 2022 07:32 AM [facility] FERRITIN Specimen Type: SERUM No comment enter ed. Ordering Provid er: ELEUTERIO ORONA Report Released Date/Time: November 24, 2021 10:36 AM Reporting Lab: [facility] [facility] [address] [facility] [address] Performing Lab: [facility] [place] [facility] [address] [facility] [address] FERRITIN 526.3 H 20-300 Apr 13, 2022 07:32 AM [facility] CBC AND DIFF (AUTO) Speci men Type: BLOOD No comment enter ed. Ordering Provid er: ELEUTERIO ORONA Report Released Date/Time: November 24, 2021 09:54 AM Reporting Lab: [facility] [place] [facility] [address] [facility] [address] Performing Lab: [place] [facility] [facility] [address] [facility] [address] WBC 13.21 H 4.50-11.00 RBC 3.32 L 4.23-5.66 HGB 10.0 L 12.8-17 HCT 31.1 L 39.2-50.4 MCV 93.7 82-99 MCHC 32.2 30.8-35.1 PLT 544 H 140-360 RDW-CV 14.6 12.0-16.0 Clare, Abs 1.34 H 0.30-1.10 MCH 30.1 26.2-32.6 Neut % 54.1 Lymph % 27.0 Clare % 10.1 Eos % 7.5 Baso % 0.5 Neut, Abs 7.14 2.20-7.60 Lymph, Abs 3.57 H 1.00-3.20 Eos, Abs 0.99 H 0.03-0.44 Baso, Abs 0.07 0.01-0.13 Immature Gran % 0.8 Immature Gran, Abs 0.10 H 0.00-0.06 Advance Directives: All historical and current Section [...] Encounter. Date/Time Encounter Note(s) Provider Source Apr 17, 2022 12:17 PHARMACY OUTPATIENT MEDICATION MGT NOTE: [facility] LOCAL TITLE: PHARMACY OUTPATIENT MEDICATION NOT E (631GE) STANDARD TITLE: PHARMACY OUTPATIENT MEDICATION M GT NOTE DATE OF NOTE: APR 17, 2022@12:17 ENTRY DATE: APR 17, 2022@12:17:38 AUTHOR: CECILIO CALVO EXP COSIGNER: URGENCY: STATUS: COMPLETED Ciclesonide (Alvesco) is the VA first-line inhal ed corticosteroid inhaler. Given patient currently on Mometasone 880mcg/day , conversation is not appropriate. Pt to continue on current regimen. PBM PharmD Pharmacotherapy Rem V11: Convert to preferred [facility] medication Plan: do not convert - high dose /es/ CECILIO CALVO PharmD, [facility] Clinical Distribution Designer Signed: 04/17/2022 12:19
--- OUTSIDE RECORDS SUMMARY | 2022-04-21 09:27 | XMS_ITS | Encounter Summary ---
:1935 Author Organization [facility] Address [address] [place] [address] Support Name Relationship Address Phone BRIAN CHARLES Unavailable [address] [place] [address] BRIAN CHARLES Unavailable [address] [place] [address] BRIAN CHARLES Unavailable [address] [phone] [place] [address] Insurance Providers: All historical and current Section [...] Number Stinson ANTHEM MEDIGAP MEDEX Dec 29, [id number] [phone] Anamika WALSH PATIENT BCBS OF CT PLAN C 2001 3 SPEEDY ANTH MEDICARE MEDEX Dec 29, [id number] [phone] Anamika WALSH PATIENT BCBS OF CT SUPPLEMEN BRON 2001 3 SPEED[place] E BCBS [place] MEDICARE MED[place] Dec 29, [id number] [phone] Anamika GONZALES PATIENT SUPPLEMEN BRONZ [id number] 4 SPE[place] Dec 29, [id number] [phone] Anamika GONZALES PATIENT SUPPLEMEN BRONZ 2001 4 SPEEDY HERMINIA E BCBS OF MEDICARE PSUED May 31, [id number] [phone] Anamika GONZALES PATIENT [place] SUPPLEMEN O [id number] 3 SPEEDY HERMINIA MEDEX BRONZ E BLUE CROSS MEDIGAP MEDEX May 31, [id number] [phone] WHEE LER,R [facility] Desmond EAST 1999 05 [id number] 4 SPEEDY [facility] MEDICARE MEDICARE PART October 29, PART B [id number] WHEELE R,R PATIENT (WNR) (M) B 2001 RC08 00 SPEEDY MEDICARE MEDICARE PART October 29, PART B [id number] WHEELE R,R PATIENT (WNR) (M) B 2001 RC08 2 SPEED[place] MEDICARE MEDICARE PART October 29, PART B [id number] [phone] WHEELE R,R PATIENT (WNR) (M) B 2001 85A 00 SPEEDY MEDICARE MEDICARE PART October 29, PART B [id number] [phone] WHEELE R,R PATIENT (WNR) (M) B 2001 RC08 00 SPE[place] MEDICARE MEDICARE PART October 29, PART B [id number] [phone] WHEELE R,R PATIENT (WNR) (M) B 2001 85A 00 SPEED[place] MEDICARE MEDICARE PART May 31, PART A [id number] [phone] WHEELE R,R PATIENT (WNR) (M) A 1999 RC08 2 SPEED[place] MEDICARE MEDICARE PART May 31, PART A [id number] [phone] WHEELE R,R PATIENT (WNR) (M) A 1999 85A 00 SPEEDY MEDICARE MEDICARE PART May 31, PART A [id number] [phone] WHEELE R,R PATIENT (WNR) (M) A 1999 RC08 00 SPEED[place] MEDICARE MEDICARE PART May 31, PART A [id number] [phone] WHEELE R,R PATIENT (WNR) (M) A 1999 85A 00 SPEED[place] MEDICARE MEDICARE PART May 31, PART A [id number] [id number] WHEELE R,R PATIENT (WNR) (M) A 1999 RC08 SPEEDY Selected Encounter This section includes the information on record at [place] for the Encounter. Date/Time Encounter Type Encounter Reason Provider Source Description Mar 27, 2022 ELECTRODES, PROSTHETICS/ORTHO ICD-10-CM M54.50 KAPADIA, SANDEEP 02:47 PM PAIR TICS Low back pain, J unspecified with Provider Comments: Low back pain, unspecified IHE Encounter Template Text not used by [place] Assessments - Encounter Diagnoses This section includes the primary and secondary diagnoses documented for the Encounter. Date/Time Primary/Secondary Diagnosis Name Provider Source Diagnosis Apr 12, 2022 PRIMARY Low back pain, NIMO MCKAY [facility] LUDWIGT RN 02:54 PM unspecified [facility] Plan of Treatment: Future Appointments (+ 6 months) and Future Tests (+/- 45 days) The Plan of Treatment section includes future care activities for the patient from all [place] treatmentfacilities. This section includes future appointments and future orders which are active, pending orscheduled.Future Appointments This section includes appointments that were scheduled to occur 6 months from the date of the Encounter, up to a maximum of 20 appointments. The data comes from all [place] treatment facilities. Appointment Date/Time Appointment Type Appointment Facili ty Name Apr 16, 2022 09:30 AM [facility] May 21, 2022 01:00 PM AMBULATORY - MEDICINE [facility] Lab Results: +/- 30 days of the encounter This section includes the Chemistry and Hematology Lab Results on record with [place] for the patient. Radiology Reports and Pathology Reports are provided separately, in subsequent sections.Lab Results This section contains the Chemistry/Hematology Results that were resulted 30 days before or 30 daysafter the date of the Encounter. Date/Time Source Result Type Result - Unit Interpretation Reference Range Comment Apr 13, 2022 07:32 AM [facility] TRANSFERRIN, SERUM Specim en Type: SERUM No comment enter ed. Ordering Provid er: ELEUTERIO ORONA Report Released Date/Time: November 24, 2021 10:36 AM Reporting Lab: [facility] [address] [facility] [address] Performing Lab: [facility] [address] [facility] [address] TRANSFERRIN, SERUM 175 L 200-360 Apr 13, 2022 [facility] HEMOGLOBIN A1C Specimen Type: BLOOD 07:32 AM [...] November 24, 2021 09:54 AM Reporting Lab: [facility] [address] [facility] [address] Performing Lab: [facility] [address] [facility] [address] HEMOGLOBIN A1C 6.6 H 4.0-5.6 Apr 13, 2022 07:32 AM [facility] LIPID PANEL FASTING Speci men Type: SERUM No comment enter ed. Ordering Provid er: ELEUTERIO ORONA Report Released Date/Time: November 24, 2021 09:54 AM Reporting Lab: [facility] [address] [facility] [address] Performing Lab: [facility] [address] [facility] [address] CHOLESTEROL 104 <7-199 TRIGLYCERIDE 97 0-150 LDL calculated 59 0-129 CHOL/HDL 4.0 HDL CHOLESTEROL 26 L 40-60 Apr 13, 2022 07:32 AM [facility] TSH Specimen Type: SERUM No comment enter ed. Ordering Provid er: ELEUTERIO ORONA Report Released Date/Time: November 24, 2021 09:54 AM Reporting Lab: [facility] [address] [facility] [address] Performing Lab: [facility] [address] [facility] [address] TSH 1.43 0.35-5.00 Apr 13, 2022 07:32 AM [facility] LIVER FUNCTION Specimen Type: SERUM No comment enter ed. Ordering Provid er: ELEUTERIO ORONA Report Released Date/Time: November 24, 2021 09:54 AM Reporting Lab: [facility] [address] [facility] [address] Performing Lab: [facility] [address] [facility] [address] PROTEIN,TOTAL 6.6 6.0-8.3 ALBUMIN 2.7 L 3.5-5.0 ALKALINE PHOSPHATASE 122 40-150 AST 24 5-34 ALT 43 <6-55 BILIRUBIN, TOTAL 0.4 0.2-1.2 Apr 13, 2022 07:32 AM [facility] RETICULOCYTES Specimen Type: BLOOD No comment enter ed. Ordering Provid er: ELEUTERIO ORONA Report Released Date/Time: November 24, 2021 10:36 AM Reporting Lab: [place] [facility] [place] [facility] [address] [facility] [address] Performing Lab: [place] [facility] [facility] [address] [facility] [address] RETIC % 1.6 0.6-2.0 RETIC, ABS 52.5 30.0-90.0 Ret-He % 33.0 27.9-42.0 Apr 13, 2022 07:32 AM [facility] VITAMIN B12 Specimen Type: SERUM No comment enter ed. Ordering Provid er: ELEUTERIO ORONA Report Released Date/Time: November 24, 2021 10:36 AM Reporting Lab: [facility] [place] [facility] [address] [facility] [address] Performing Lab: [facility] [place] [facility] [address] [facility] [address] VITAMIN B12 313 200-900 Apr 13, 2022 07:32 AM [place] FERRITIN Specimen Type: SERUM No comment enter ed. Ordering Provid er: ELEUTERIO ORONA Report Released Date/Time: November 24, 2021 10:36 AM Reporting Lab: [facility] [place] [facility] [address] [facility] [address] Performing Lab: [facility] [place] [place] [facility] [address] [facility] [address] FERRITIN 526.3 H 20-300 Apr 13, 2022 07:32 AM [facility] IRON & TIBC PANEL Specime n Type: SERUM No comment enter ed. Ordering Provid er: ELEUTERIO ORONA Report Released Date/Time: November 24, 2021 10:36 AM Reporting Lab: [facility] [place] [place] [facility] [address] [facility] [address] Performing Lab: [place] [facility] [facility] [address] [facility] [address] TIBC 243 204-475 IRON 46 40-160 Transferrin Saturation 18.9 L 20.0-50 .0 Apr 13, 2022 07:32 [facility] BASIC METABOLIC PANEL Specim en Type: SERUM AM (fasting) No comment enter ed. Ordering Provid er: ELEUTERIO ORONA Report Released Date/Time: November 24, 2021 09:54 AM Reporting Lab: [facility] [address] [facility] [address] Performing Lab: [address] [address] UREA NITROGEN 28 H 7-25 GLUCOSE 152 H 65-100 SODIUM 140 135-145 POTASSIUM 4.9 3.5-5.0 CHLORIDE 107 100-110 CO2 21 20-30 CREATININE, Serum 1.33 0.50-1.40 eGFR(CKD-EPI 2020) 52 L >60 Apr 13, 2022 07:32 AM [facility] CBC AND DIFF (AUTO) Speci men Type: BLOOD No comment enter ed. Ordering Provid er: ELEUTERIO ORONA Report Released Date/Time: November 24, 2021 09:54 AM Reporting Lab: [address] [address] Performing Lab: [address] [address] WBC 13.21 H 4.50-11.00 RBC 3.32 L 4.23-5.66 HGB 10.0 L 12.8-17 HCT 31.1 L 39.2-50.4 MCV 93.7 82-99 MCHC 32.2 30.8-35.1 PLT 544 H 140-360 RDW-CV 14.6 12.0-16.0 Fergus, Abs 1.34 H 0.30-1.10 MCH 30.1 26.2-32.6 Neut % 54.1 Lymph % 27.0 Fergus % 10.1 Eos % 7.5 Baso % [...] smoking and tobacco-related health factors from the [place] facility where the Encounter took place.Current Smoking Status This section includes the most current smoking, or tobacco-related health factor, from the [place] facility where the Encounter took place. Date/Time Current Smoking Status Comment Facility Jul 26, 2020 10:43 [facility] Tobacco Use History This section includes a history of the smoking, or tobacco- related health factors, that were collected on or before the date of the Encounter. The data comes from the [place] facility where the Encounter took place. Date/Time Smoking Status/Tobacco Use Comment [facility] Jul 26, 2020 10:43 AM [facility] Advance Directives: All historical and current Section Date Range: From patient's date of to the date document was created. This section includes ALL of a patient's completed or amended [place] Advance and Rescinded Directives. The entries below indicate that a directive exists for the patient, but an actual copy is not included with this document. The data comes from all [place] facilities. Date Advance Directives Provider Source May 20, 2006 ADVANCE DIRECTIVE BAYLEE SHUKLA
--- OUTSIDE RECORDS SUMMARY | 2022-04-21 09:27 | XMS_ITS | Encounter Summary ---
:1935 Author Organization [facility] Address [address] [place] [id number] Support Name Relationship Address Phone BRIAN CHARLES Unavailable [address] [place] [address] BRIAN CHARLES Unavailable [address] [place] [address] BRIAN CHARLES Unavailable [phone] [place] [address] Insurance Providers: All historical and current Section [...] Number [place] ANTHEM MEDIGAP MEDEX Dec 29, [id number] [phone] Anamika WALSH PATIENT BCBS OF CT PLAN C 2001 3 SPEEDY ANTHEM MEDICARE MEDEX Dec 29, [id number] [phone] Anamika WALSH PATIENT BCBS OF CT SUPPLEMEN BRON 2001 3 SPEED[place] MED[place] Dec 29, [id number] [phone] Anamika GONZALES PATIENT SUPPLEMEN BRONZ [id number] [place] Dec 29, [id number] [phone] Anamika GONZALES PATIENT SUPPLEMEN BRONZ 2001 4 SPEEDY HER[place] E BCBS OF MEDICARE PSUED May 31, [id number] [phone] Anamika GONZALES PATIENT [place] SUPPLEMEN O [id number] 3 SPEEDY HERMINIA MEDEX BRONZ E BLUE [place]OSS MEDIGAP MEDEX May 31, [id number] [phone] WHEE LER,R PATIENT BLUE [facility] [place] EAST 1999 05 [id number] OBERT SHIELD OF E [place] MEDICARE MEDICARE PART October 29, PART B [id number] [phone] WHEELE R,R PATIENT (WNR) (M) B 2001 RC08 2 OBERT MEDICARE MEDICARE PART October 29, PART B [id number] [phone] WHEELE R,R PATIENT (WNR) (M) B 2001 85A 00 SPEEDY MEDICARE MEDICARE PART October 29, PART B [id number] [phone] WHEELE R,R PATIENT (WNR) (M) B 2001 RC08 00 SPE[place] MEDICARE MEDICARE PART October 29, PART B [id number] [phone] WHEELE R,R PATIENT (WNR) (M) B 2001 85A 00 SPEEDY MEDICARE MEDICARE PART October 29, PART B [id number] [phone] WHEELE R,R PATIENT (WNR) (M) B 2001 RC08 00 [facility] MEDICARE MEDICARE PART May 31, PART A [id number] [phone] WHEELE R,R PATIENT (WNR) (M) A 1999 RC08 2 SPEEDY MEDICARE MEDICARE PART May 31, PART A [id number] [phone] WHEELE R,R PATIENT (WNR) (M) A 1999 85A 00 SPE[place] MEDICARE MEDICARE PART May 31, PART A [id number] [phone] WHEELE R,R PATIENT (WNR) (M) A 1999 RC08 00 [place] MEDICARE MEDICARE PART May 31, PART A [id number] [phone] WHEELE R,R PATIENT (WNR) (M) A 1999 85A 00 SPE[place] MEDICARE MEDICARE PART May 31, PART A [id number] [phone] WHEELE R,R PATIENT (WNR) (M) A 1999 RC08 SPEEDY Selected Encounter This section includes the information [facility]. Date/Time Encounter Type Encounter Reason Provider Source Description Apr 18, 2022 02:14 Outpatient TELEPHONE TRIAGE NAJMA MILLER PM Encounter IHE Encounter Template Text not used by [facility] Plan of Treatment: Future Appointments (+ 6 months) and Future Tests (+/- 45 days) The Plan of Treatment section includes future care activities for the patient from all [place] treatmentfacilities. This section includes future appointments and future orders which are active, pending orscheduled.Future Appointments This section includes appointments that were scheduled to occur 6 months from the date of the Encounter, up to a maximum of 20 appointments. The data comes from all [place] treatment facilities. Appointment Date/Time Appointment Type Appointment Facili ty Name May 21, 2022 01:00 PM AMBULATORY - MEDICINE [facility] Active, Pending, and Scheduled Orders This section includes a listing of several types of active, pending, and scheduled orders, including clinic medications orders, diagnostic test orders, procedure orders and consult orders; where the start date of the order is 45 days before the date of the Encounter or 45 days after the date of the Encounter. The data comes from all [facility]. Test Date/Time Test Type Test Details Facility Name May 14, 2022 12:00 AM Laboratory - Chemistry MICROALBUMIN CREATI NINE [facility] Order RATIO PANEL URINE (RANDOM) SP Lab Results: +/- 30 days of the encounter This section includes the Chemistry and Hematology Lab Results on record with [place] for the patient. Radiology Reports and Pathology Reports are provided separately, in subsequent sections.Lab Results This section contains the Chemistry/Hematology Results that were resulted 30 days before or 30 daysafter the date of the Encounter. Date/Time Source Result Type Result - Unit Interpretation Reference Range Comment Apr 13, 2022 07:32 AM [facility] TRANSFERRIN, SERUM Specim en Type: SERUM No comment enter ed. Ordering Provid er: ELEUTERIO ORONA Report Released Date/Time: November 24, 2021 10:36 AM Reporting Lab: [facility] [address] [facility] [address] Performing Lab: [facility] [address] [facility] [address] TRANSFERRIN, SERUM 175 L 200-360 Apr 13, 2022 07:32 AM [facility] LIPID PANEL FASTING Speci men Type: SERUM No comment enter ed. Ordering Provid er: ELEUTERIO ORONA Report Released Date/Time: November 24, 2021 09:54 AM Reporting Lab: [facility] [address] [facility] [address] Performing Lab: [facility] [address] [facility] [address] CHOLESTEROL 104 <7-199 TRIGLYCERIDE 97 0-150 LDL calculated 59 0-129 CHOL/HDL 4.0 HDL CHOLESTEROL 26 L 40-60 Apr 13, 2022 07:32 AM [facility] TSH Specimen Type: SERUM No comment enter ed. Ordering Provid er: ELEUTERIO ORONA Report Released Date/Time: November 24, 2021 09:54 AM Reporting Lab: [facility] [address] [facility] [address] Performing Lab: [facility] [address] [facility] [address] TSH 1.43 0.35-5.00 Apr 13, 2022 07:32 [facility] BASIC METABOLIC PANEL Specim en Type: SERUM AM (fasting) No comment enter ed. Ordering Provid er: ELEUTERIO ORONA Report Released Date/Time: November 24, 2021 09:54 AM Reporting Lab: [facility] [address] [facility] [address] Performing Lab: [facility] [address] [facility] [address] UREA NITROGEN 28 H 7-25 GLUCOSE 152 H 65-100 SODIUM 140 135-145 POTASSIUM 4.9 3.5-5.0 CHLORIDE 107 100-110 CO2 21 20-30 CREATININE, Serum 1.33 0.50-1.40 eGFR(CKD-EPI 2020) 52 L >60 Apr 13, 2022 07:32 AM [facility] LIVER FUNCTION Specimen Type: SERUM No comment enter ed. Ordering Provid er: ELEUTERIO ORONA Report Released Date/Time: November 24, 2021 09:54 AM Reporting Lab: [facility] [address] [facility] [address] Performing Lab: [facility] [address] [facility] [address] PROTEIN,TOTAL 6.6 6.0-8.3 ALBUMIN 2.7 L 3.5-5.0 ALKALINE PHOSPHATASE 122 40-150 AST 24 5-34 ALT 43 <6-55 BILIRUBIN, TOTAL 0.4 0.2-1.2 Apr 13, 2022 [facility] HEMOGLOBIN A1C Specimen Type: BLOOD 07:32 AM [...] November 24, 2021 09:54 AM Reporting Lab: [facility] [place] [facility] [address] [facility] [address] Performing Lab: [facility] [place] [facility] [address] [facility] [address] HEMOGLOBIN A1C 6.6 H 4.0-5.6 Apr 13, 2022 07:32 AM [facility] VITAMIN B12 Specimen Type: SERUM No comment enter ed. Ordering Provid er: ELEUTERIO ORONA Report Released Date/Time: November 24, 2021 10:36 AM Reporting Lab: [facility] [place] [facility] [address] [facility] [address] Performing Lab: [facility] [place] [facility] [address] [facility] [address] VITAMIN B12 313 200-900 Apr 13, 2022 07:32 AM [facility] FERRITIN Specimen Type: SERUM No comment enter ed. Ordering Provid er: ELEUTERIO ORONA Report Released Date/Time: November 24, 2021 10:36 AM Reporting Lab: [facility] [place] [facility] [address] [facility] [address] Performing [facility]: [facility] [place] [facility] [address] [facility] [address] FERRITIN 526.3 H 20-300 Apr 13, 2022 07:32 AM [facility] RETICULOCYTES Specimen Type: BLOOD No comment enter ed. Ordering Provid er: ELEUTERIO ORONA Report Released Date/Time: November 24, 2021 10:36 AM Reporting Lab: [facility] [place] [facility] [address] [facility] [address] Performing Lab: [facility] [address] [facility] [address] RETIC % 1.6 0.6-2.0 RETIC, ABS 52.5 30.0-90.0 Ret-He % 33.0 27.9-42.0 Apr 13, 2022 07:32 AM [facility] IRON & TIBC PANEL Specime n Type: SERUM No comment enter ed. Ordering Provid er: ELEUTERIO ORONA Report Released Date/Time: November 24, 2021 10:36 AM Reporting Lab: [address] [address] Performing Lab: [address] [address] TIBC 243 204-475 IRON 46 40-160 Transferrin Saturation 18.9 L 20.0-50 .0 Apr 13, 2022 07:32 AM [facility] CBC AND DIFF (AUTO) Speci men Type: BLOOD No comment enter ed. Ordering Provid er: ELEUTERIO ORONA Report Released Date/Time: November 24, 2021 09:54 AM Reporting Lab: [address] [address] Performing Lab: [address] [address] WBC 13.21 H 4.50-11.00 RBC 3.32 L 4.23-5.66 HGB 10.0 L 12.8-17 HCT 31.1 L 39.2-50.4 MCV 93.7 82-99 MCHC 32.2 30.8-35.1 PLT 544 H 140-360 RDW-CV 14.6 12.0-16.0 Mora, Abs 1.34 H 0.30-1.10 MCH 30.1 26.2-32.6 Neut % 54.1 Lymph % 27.0 Mora % 10.1 Eos % 7.5 Baso % [...] smoking and tobacco-related health factors from the [place] facility where the Encounter took place.Current Smoking Status This section includes the most current smoking, or tobacco-related health factor, from the [place] facility where the Encounter took place. Date/Time Current Smoking Status Comment Facility Jul 26, 2020 10:43 AM MA-TOBACCO FORMER USER [facility] Tobacco Use History This section includes a history of the smoking, or tobacco- related health factors, that were collected on or before the date of the Encounter. The data comes from the [place] facility where the Encounter took place. Date/Time Smoking Status/Tobacco Use Comment [facility] Jul 26, 2020 10:43 AM MA-TOBACCO QUIT 15 YRS OR [facility] Advance Directives: All historical and current Section Date Range: From patient's date of to the date document was created. This section includes ALL of a patient's completed or amended [place] Advance and Rescinded Directives. The entries below indicate that a directive exists for the patient, but an actual copy is not included with this document. The data comes from all [place] facilities. Date Advance Directives Provider Source May 20, 2006 ADVANCE DIRECTIVE BAYLEE SHUKLA Encounter Notes: All associated encounter notes This section contains the clinical notes associated to the Encounter. Date/Time Encounter Note(s) Provider Source Apr 18, 2022 02:14 PM RN PROGRESS NOTE: ADONIS MILLER [facility] LOCAL TITLE: CCC: CLINICAL TRIAGE [facility] STANDARD TITLE: RN PROGRESS NOTE DATE OF NOTE: APR 18, 2022@14:14:16 ENTRY DATE: APR 18, 2022@14:14:16 AUTHOR: ADONIS MILLER EXP COSIGNER: URGENCY: STATUS: COMPLETED CCC: CLINICAL TRIAGE Has ADDENDA Patient Demographics Patient Name: MART WALSH Patient Primary [address]: [address] [place] [address]
[place] [address] Patient : 1935 SSN: [id number] Patient Age: 86 Caller/Recipient Relation to Patient: Other Call Back Number: [phone] Caller Name: Catrachita Washington Emergency Contactx: BRIAN CHARLES Triage Summary Nurse Summary: Catrachita Washington VNA from [facility] calling on behalf of [place] requesting to relay a message to PACT. V NA reports has been experiencing SOB + elevated BP readings x 1 day. VNA reports Vet's current BP is 160/52. VNA states Vet is declining ED. VNA requesting a call back from PACT at [phone] ITZEL. VNA has no additional questions and/or requests at this time. Alerting PACT Team for review and f/u. Summary of Actions Other course(s) of action Transferred to PACT/Provider Generated msg to PACT/Provider Clinical Contact Center Codes Clinic/Location: V1 [facility] PHONE [facility] RN /selam/ ADONIS MILLER RN REGISTERED NURSE Signed: 04/18/2022 14:14 Receipt Acknowledged By: 04/18/2022 14:36 /selam/ TANYA LUO RN-BC REGISTERED NURSE * AWAITING SIGNATURE * KATHRYN SALDAÑA 04/18/2022 ADDENDUM STATUS: COMPLETED Called Catrachita at contact number provided and le ft voicemail with author's direct number for call back /selam/ TANYA LUO RN-BC REGISTERED NURSE Signed: 04/18/2022 14:37 04/18/2022 ADDENDUM STATUS: COMPLETED Called Catrachita and she reports that Millicent walton has wheezing and is more sob while walking short distances in home. Catrachita feels t hat [place] should go to ED for assessment of worsening respiratory status but Catrachita reports that [place] is declining to go to ED. Called and advised h im that recommendation for symptoms reported by A nurse, Catrachita, is for him to go to ED for evalu ation. [place] declines to go to ED at this time but will call [address] transpo rt to [facility] if symptoms worsen or new symptoms arise. Author advised [facility] that will order new home blood pressure monitor with large cuff to be sent to his home for da aldo use. Author reviewed importance of monitoring weight daily to watch for fluid reten tion that can cause strain on kidneys and risk of chf. [facility]ia will weigh self daily in the am and keep record to monitor for weight gain. /selam/ CARMINE LUON RN-BC REGISTERED NURSE Signed: 04/18/2022 16:33
--- OUTSIDE RECORDS SUMMARY | 2022-04-21 09:27 | XMS_ITS | Encounter Summary ---
:[address] [facility] Address [address] [place] [address] Support Name Relationship Address Phone BRIAN CHARLES Unavailable [address] [place] [address] BRIAN CHARLES Unavailable [address] [place] [address] BRIAN CHARLES Unavailable [address] [phone] [place] [address] Insurance Providers: All historical and current Section [...] Number [place] ANTHEM MEDIGAP MEDEX Dec 29, [id number] [phone] Anamika WALSH PATIENT BCBS OF CT PLAN C 2001 3 SPEEDY ANTH MEDICARE MEDEX Dec 29, [id number] [phone] Anamika WALSH PATIENT BCBS OF CT SUPPLEMEN BRONZ 2001 3 SPE[place] Dec 29, [id number] [phone] Anamika GONZALES PATIENT SUPPLEMEN BRONZ [id number] [place] Dec 29, [id number] [phone] Anamika GONZALES PATIENT SUPPLEMEN BRONZ 2001 4 SPEEDY HER[place] E BCBS OF MEDICARE PSUED May 31, [id number] [phone] Anamika GONZALES PATIENT MASS SUPPLEMEN O 1999 3 SPEEDY HERMINIA MEDEX BRONZ E BLUE [place]OSS MEDIGAP MEDEX May 31, [id number] [phone] WHEE LER,R PATIENT BLUE [facility]ITA 1999 [id number] [facility] MEDICARE MEDICARE PART October 29, PART B [id number] [phone] WHEELE R,R PATIENT (WNR) (M) B 2001 RC08 2 [facility] MEDICARE MEDICARE PART October 29, PART B [id number] [phone] WHEELE R,R PATIENT (WNR) (M) B 2001 85A 00 SPE[employer] MEDICARE MEDICARE PART October 29, PART B [id number] [phone] WHEELE R,R PATIENT (WNR) (M) B 2001 RC08 00 [place] MEDICARE MEDICARE PART October 29, PART B [id number] [phone] WHEELE R,R PATIENT (WNR) (M) B 2001 85A 00 [place] MEDICARE MEDICARE PART October 29, PART B [id number] [phone] WHEELE R,R PATIENT (WNR) (M) B 2001 RC08 00 [place] MEDICARE MEDICARE PART May 31, PART A [id number] [phone] WHEELE R,R PATIENT (WNR) (M) A 1999 RC08 2 [place] MEDICARE MEDICARE PART May 31, PART A [id number] [id number] WHEELE R,R PATIENT (WNR) (M) A 1999 85A 00 [place] MEDICARE MEDICARE PART May 31, PART A [id number] [id number] WHEELE R,R PATIENT (WNR) (M) A 1999 RC08 00 [place] MEDICARE MEDICARE PART May 31, PART A [id number] [phone] WHEELE R,R PATIENT (WNR) (M) A 1999 85A 00 [place] MEDICARE MEDICARE PART May 31, PART A [id number] [phone] WHEELE R,R PATIENT (WNR) (M) A 1999 RC SPEEDY Selected Encounter This section includes the [facility]. Date/Time Encounter Type Encounter Description Reason Provider Source Apr 19, 2022 10:08 Outpatient Encounter ADMIN PAT ACTIVTIES ROMAIN (ROM) IHE Encounter Template Text not used by [...] 21, 2022 01:00 PM AMBULATORY - MEDICINE [facility] Active, Pending, and Scheduled Orders This section includes a listing of several types of active, pending, and scheduled orders, including clinic medications orders, diagnostic test orders, procedure orders and consult orders; where the start date of the order is 45 days before the date of the Encounter or 45 days after the date of the Encounter. The data comes from all [facility]. Test Date/Time Test Type Test Details Facility Name May 14, 2022 12:00 AM Laboratory - Chemistry MICROALBUMIN CREATI NINE [facility] Order RATIO PANEL URINE (RANDOM) SP Lab [...] Range Comment Apr 13, 2022 07:32 AM [facility] TRANSFERRIN, SERUM Specim en Type: SERUM No comment enter ed. Ordering Provid er: ELEUTERIO ORONA Report Released Date/Time: November 24, 2021 10:36 AM Reporting Lab: [facility] [address] [facility] [address] Performing Lab: [facility] [address] [facility] [address] TRANSFERRIN, SERUM 175 L 200-360 Apr 13, 2022 07:32 AM [facility] TSH Specimen Type: SERUM No comment enter ed. Ordering Provid er: ELEUTERIO ORONA Report Released Date/Time: November 24, 2021 09:54 AM Reporting Lab: [facility] [address] [facility] [address] Performing Lab: [facility] [place] [facility] [address] [facility] [address] TSH 1.43 0.35-5.00 Apr 13, 2022 07:32 AM [facility] LIPID PANEL FASTING Speci men Type: SERUM No comment enter ed. Ordering Provid er: ELEUTERIO ORONA Report Released Date/Time: November 24, 2021 09:54 AM Reporting Lab: [facility] [place] [facility] [address] [facility] [address] [facility] [place] [facility] [address] [facility] [address] CHOLESTEROL 104 <7-199 TRIGLYCERIDE 97 0-150 LDL calculated 59 0-129 CHOL/HDL 4.0 HDL CHOLESTEROL 26 L 40-60 Apr 13, 2022 07:32 [facility] BASIC METABOLIC PANEL Specim en Type: SERUM AM (fasting) No comment enter ed. Ordering Provid er: ELEUTERIO ORONA Report Released Date/Time: November 24, 2021 09:54 AM Reporting [facility] [address] [facility] [address] Performing Lab: [facility] [address] [facility] [address] UREA NITROGEN 28 H 7-25 GLUCOSE 152 H 65-100 SODIUM 140 135-145 POTASSIUM 4.9 3.5-5.0 CHLORIDE 107 100-110 CO2 21 20-30 CREATININE, Serum 1.33 0.50-1.40 eGFR(CKD-EPI 2020) 52 L >60 Apr 13, 2022 07:32 AM [facility] LIVER FUNCTION Specimen Type: SERUM No comment enter ed. Ordering Provid er: ELEUTERIO ORONA Report Released Date/Time: November 24, 2021 09:54 AM Reporting Lab: [facility] [place] [facility] [address] [facility] [address] [facility]forming Lab: [facility] [address] [facility] [address] PROTEIN,TOTAL 6.6 6.0-8.3 ALBUMIN 2.7 L 3.5-5.0 ALKALINE PHOSPHATASE 122 40-150 AST 24 5-34 ALT 43 <6-55 BILIRUBIN, TOTAL 0.4 0.2-1.2 Apr 13, 2022 [facility] HEMOGLOBIN A1C Specimen Type: BLOOD 07:32 AM [...] November 24, 2021 09:54 AM Reporting Lab: [facility] [place] [facility] [address] [facility] [address] Performing Lab: [facility] [place] [facility] [address] [facility] [address] HEMOGLOBIN A1C 6.6 H 4.0-5.6 Apr 13, 2022 07:32 AM [facility] VITAMIN B12 Specimen Type: SERUM No comment enter ed. Ordering Provid er: ELEUTERIO ORONA Report Released Date/Time: November 24, 2021 10:36 AM Reporting Lab: [facility] [place] [facility] [address] [facility] [address] Performing Lab: [facility] [place] [facility] [address] [facility] [address] VITAMIN B12 313 200-900 Apr 13, 2022 07:32 AM [facility] FERRITIN Specimen Type: SERUM No comment enter ed. Ordering Provid er: ELEUTERIO ORONA Report Released Date/Time: November 24, 2021 10:36 AM Reporting Lab: [facility] [place] [facility] [address] [facility] [address] Performing Lab: [facility] [place] [facility] [address] [facility] [address] FERRITIN 526.3 H 20-300 Apr 13, 2022 07:32 AM [facility] RETICULOCYTES Specimen Type: BLOOD No comment enter ed. Ordering Provid er: ELEUTERIO ORONA Report Released Date/Time: November 24, 2021 10:36 AM Reporting Lab: [place] [facility] [address] [address] [facility]forming Lab: [facility] [address] [address] RETIC % 1.6 0.6-2.0 RETIC, ABS 52.5 30.0-90.0 Ret-He % 33.0 27.9-42.0 Apr 13, 2022 07:32 AM [facility] IRON & TIBC PANEL Specime n Type: SERUM No comment enter ed. Ordering Provid er: ELEUTERIO ORONA Report Released Date/Time: November 24, 2021 10:36 AM Reporting Lab: [address] [address] Performing Lab: [address] [address] TIBC 243 204-475 IRON 46 40-160 Transferrin Saturation 18.9 L 20.0-50 .0 Apr 13, 2022 07:32 AM [facility] CBC AND DIFF (AUTO) Speci men Type: BLOOD No comment enter ed. Ordering Provid er: ELEUTERIO ORONA Report Released Date/Time: November 24, 2021 09:54 AM Reporting Lab: [address] [address] Performing Lab: [address] [address] WBC 13.21 H 4.50-11.00 RBC 3.32 L 4.23-5.66 HGB 10.0 L 12.8-17 HCT 31.1 L 39.2-50.4 MCV 93.7 82-99 MCHC 32.2 30.8-35.1 PLT 544 H 140-360 RDW-CV 14.6 12.0-16.0 [place], Abs 1.34 H 0.30-1.10 MCH 30.1 26.2-32.6 Neut % 54.1 Lymph % 27.0 [place] % 10.1 Eos % 7.5 Baso % [...] 26, 2020 10:43 AM [place]-TO[facility]AC[place] [facility] Tobacco Use History This section includes a history of the smoking, or tobacco- related health factors, that were collected on or before the date of the Encounter. The data comes from the [place] facility where the Encounter took place. Date/Time Smoking Status/Tobacco Use Comment Merged With [facility] it Jul 26, 2020 10:43 AM [place]-TOBACCO QUIT 15 YRS OR [place] [facility] [place] [facility] Advance Directives: All historical and current [...] May 20, 2006 ADVANCE DIRECTIVE BAYLEE SHUKLA [facility] Encounter Notes: All associated encounter notes This section contains the clinical notes associated to the Encounter. Date/Time Encounter Note(s) Provider Source Apr 19, 2022 10:08 AM ADMINISTRATIVE NOTE: [facility] LOCAL TITLE: CCC: SCHEDULING ADMINISTRATION [facility] [place] [place] [facility] STANDARD TITLE: ADMINISTRATIVE NOTE DATE OF NOTE: APR 19, 2022@10:08:16 ENTRY DATE: APR 19, 2022@10:13:37 AUTHOR: CRISTY PANG EXP COSIGNER: URGENCY: STATUS: COMPLETED CCC: SCHEDULING ADMINISTRATION Has ADDENDA Type of call: CLINICAL INFORMATION/EDUCATION. PCMM Provider Info: [facility] ([id number]) PACT: SO PACT 8 *WH* (Focus: [facility]) Designated Pcp: SANDEEP KAPADIA Manager Studio: CINDY BAER Clinical Associate: KATHRYN SALDAÑA PHON [id number] Veneer Marker: ADAM MATA PACT Clinical Pharmacist: DONNY JACK Clinical POC: Clinical Associate KATHRYN MCKEON PHONE:[phone] Administrative POC: Veneer Marker ADAM MATA *PATIENT called in for MART WALSH ([id number]) . The following identifiers were used to verify th is patient: SSN. Contact Caller Response: ADM CALL RESOLVED Caller Area: [facility] Comments: Pt was waiting for Nurse Cindy to call him. Pl ease call pt. Author: CRISTY PANG Evaluation/Management Code: HC PRO PHONE CALL 5- 10 MIN ([phone]). Starting at: 04/19/2022 @ 10:08:16 AM Ending at: 04/19/2022 @ 10:13:09 AM Length: 4 minutes. Chief Complaint: Not applicable to call. Class Code: Other specified counseling. /rylan OHARA 1 [facility] AMSA Signed: 04/19/2022 10:13 Receipt Acknowledged By: 04/19/2022 10:32 /selam/ TANYA LUO RN-BC REGISTERED NURSE 04/19/2022 10:42 /es/ KATHRYN SALDAÑA LPN Licensed Practical Nurse 04/19/2022 ADDENDUM STATUS: COMPLETED Called and he report s that he weighed himself this morning. reports 223 lb this morning. 147/71 bp this morning and repeat is 137. [employer] reports that shortne ss of breath with short distances but does not feel like it is as bad. Took diuretic today. reports continues to have some wheezing. [employer] encouraged to contac t 911 if notes chest pain, unresolving shortness of breath, or any other worsening cardiac or respir atory symptoms. [employer] reports that physical therapist is going to home tomorrow. is going to continue to update on sympto ms and if any needs arise. /TANYA Hoffmann RN-BC REGISTERED NURSE Signed: 04/19/2022 10:41
[2022-04-21 09:54] VITALS: RESP 22; O2SAT 96
--- NOTE | 2022-04-21 09:55 | PC.NURSE ---
Pt alert/oriented, states SOB x 3-4 days, no cough or fevers. LS are CTA, diminished to right lower lobe. Skin pwd. Speaking full sentences but mildy SOB with increased work of breathing on rest. NSR on tele. BLE 2-3 pitting edema noted. IV established and labs draw/sent. Daughter at bedside.
[2022-04-21 09:56] LABS: Basophils Absolute Auto 0.1 X10*3/uL (0.0-0.2); Basophils Percent Auto 0.7 % (0-2); Eosinophils Absolute Auto 0.7 X10*3/uL (0.0-0.4); Eosinophils Percent Auto 6.5 % (0-4); Hematocrit 30.8 % (42.0-52.0); Imm Gran Abs Auto 0.07 X10*3/uL (0.00-0.03); Imm Gran Pct Auto 0.7 % (0.0-0.4); Lymphocytes Absolute Auto 1.5 X10*3/uL (1.2-4.9); Lymphocytes Percent Auto 15.2 % (20-40); MANUAL DIFF FLAG NO; Mean Corpuscular HGB Conc 32.5 g/dl (31.0-36.0); Mean Corpuscular Hemoglobin 30.3 pg (27.0-33.0); Mean Corpuscular Volume 93.3 fL (80.0-98.0); Mean Platelet Volume 9.1 fL (9.4-12.4); Monocytes Absolute Auto 1.1 X10*3/uL (0.1-1.2); Monocytes Percent Auto 10.8 % (2-11); Neutrophils Absolute Auto 6.7 x10*3/uL (2.0-8.3); Neutrophils Percent Auto 66.1 % (45-73); Platelet Count 424 X10*3/uL (160-400); Red Cell Distribution Width 14.4 % (11.0-16.0); White Blood Count 10.1 X10*3/uL (4.8-10.8)
[2022-04-21 10:04] LABS: COVID-19 Test Positive (Negative); IDNOW Serial# 16C4AD1C
[2022-04-21 10:06] LABS: INTERNATIONAL NORM RATIO 1.2 (0.9-1.1); Prothrombin Time 13.7 SEC (10.0-13.1)
[2022-04-21 10:08] LABS: Partial Thromboplastin Time 31.1 SEC (26.0-36.4)
[2022-04-21 10:09] LABS: Influenza A Negative (Negative); Influenza B2 Negative (Negative)
[2022-04-21] MEDS: Furosemide 40 MG/4 ML VIAL IVPUSH ×2 (10:09→18:03)
--- NOTE | 2022-04-21 10:11 | PC.NURSE ---
Lasix given as charted.
[2022-04-21 10:13] LABS: Alanine Aminotransferase 32 U/L (0-40); Albumin Level 3.2 g/dL (3.5-5.0); Alkaline Phosphatase 127 U/L (39-117); Anion Gap 15 (12-20); Aspartate Amino Transferase 21 U/L (5-37); Bilirubin Direct 0.2 mg/dL (0.0-0.5); Bilirubin Total 0.5 mg/dL (0.0-1.0); Blood Urea Nitrogen 21 mg/dL (9-16); Calcium 8.9 mg/dL (8.4-10.2); Carbon Dioxide 25 mmol/L (22-29); Chloride 102 mmol/L (96-108); Creatinine Clr Calc Pharmacy 56.8; Estimated Glomerular Filt Rate 59; Glucose Random 260 mg/dL (60-115); Magnesium 1.8 mg/dL (1.6-2.6); Potassium 4.8 mmol/L (3.3-5.1); Sodium 137 mmol/L (135-145); Total Protein 6.3 g/dL (6.5-8.0)
[2022-04-21 10:20] LABS: B Type Natriuretic Peptide 78 pg/mL (<100); Troponin-I High Sensitivity 23.1 ng/L (<3.5-35.0)
[2022-04-21 10:48] LABS: Procalcitonin 0.04 ng/mL
[2022-04-21 11:50] LABS: Reflex Lactate? Lactic Acid Added
[2022-04-21 12:38] LABS: Lactic Acid 2.1 mmol/L (0.5-2.0)
--- NOTE | 2022-04-21 12:45 | PM.IMHP ---
History of Present Illness Date of Service: 04/21/22 Attending physician on admission: Luana Kwon Chief Complaint: Shortness of breath This is an 86-year-old male with history of heart failure, asthma, hypertension who presents to the emergency department with shortness of breath. He describes 4 days of progressively worsening dyspnea on exertion. He gets short of breath even when walking to the bathroom. He sleeps in a recliner at baseline so has not noticed any orthopnea or PND. He reports increase in his lower extremity swelling and a weight gain of 5 lb over the past 2 days. He reports being compliant with his Lasix and low-salt diet. He denies any associated chest pain or palpitations. In the emergency department BNP was normal, chest x-ray showed small right pleural effusion. He was given a dose of lasix with good urine output and the decision was made to admit him for further management. Incidentally he was noted to be COVID positive. He denies any cough, fever, chills, body aches, recent sick contacts. He has received vaccination with Moderna including two booster shots. Review of Systems Review of Systems: Yes all other systems are reviewed and are negative Constitutional: Constitutional: Denies chills and Denies fever(s) Cardiovascular: Cardiovascular: Denies chest pain, Denies palpitations, Reports dyspnea and Reports dyspnea on exertion Respiratory: Respiratory: Denies cough, Reports dyspnea and Reports dyspnea on exertion Gastrointestinal: Gastrointestinal: Denies abdominal pain, Denies nausea and Denies vomiting Endocrine: Endocrine: Denies palpitations [facility] Medical History (Updated 04/21/22 @ 13:19 by LATIA Gray) Arthritis Diabetes Diastolic heart failure Emphysema of lung HTN (hypertension) Hypertension Varicose veins of right lower extremity with inflammation Functional capacity: uses cane/walker Family History Father No problems noted. Mother Cancer Brother No problems noted. Daughter No problems noted. Surgical History History of knee replacement (09/30/12) Social History Household Members: None Housing: House Do you presently have visiting nurse or other home services: No Alcohol intake: current Alcohol intake frequency: holidays/special occasions only Patient Tobacco Use Status: Former Tobacco user Quit Date: 30 years ago Tobacco use type: Cigarette Use of substances other than those prescribed or required for medical reasons: No Advance Directives: Yes Advance Directives on File: Yes Advance Directives Date on File: 08/11/21 service: Yes Current occupational status: retired Meds Allergies Allergy/AdvReac Type Severity Reaction Status Date / Time No Known Allergies Allergy Verified 07/25/21 14:11 Active Medications: Current Medications Pharmacy Consult (Consult Rx Perform Med Rec) 1 each MISCELLANE ONCE PRN PRN Reason: Consult order Home Medications Medication Instructions Recorded Confirmed Last Taken Type doxazosin 2 mg tablet 2 mg PO DAILY 06/14/21 04/21/22 04/21/22 History ipratropium 20 mcg-albuterol 100 1 puff inhalation Q6H PRN Wheezing 06/14/21 04/21/22 06/13/21 History mcg/actuation mist for inhalation (Combivent Respimat) loratadine 10 mg tablet 10 mg PO DAILY 06/14/21 04/21/22 06/13/21 History metformin 500 mg tablet 500 mg PO BID 06/14/21 04/21/22 04/21/22 History mometasone 220 mcg/actuation(60 2 inh inhalation BID 06/14/21 04/21/22 04/21/22 History doses) breath activated powder inhaler (Asmanex Twisthaler) multivitamin 1 tab PO DAILY 06/14/21 04/21/22 04/21/22 History omeprazole 20 mg capsule,delayed 20 mg PO DAILY@0630 06/14/21 04/21/22 04/21/22 History release valsartan 320 mg tablet 320 mg PO DAILY 06/14/21 04/21/22 04/21/22 History zafirlukast 20 mg tablet 20 mg PO BID 06/14/21 04/21/22 04/21/22 History aspirin 81 mg tablet,delayed 81 mg PO DAILY 04/21/22 04/21/22 Unknown History release atorvastatin 80 mg tablet 40 mg PO DAILY 04/21/22 04/21/22 04/21/22 History buprenorphine 20 mcg/hour weekly 1 patch transdermal SA@0900 04/21/22 04/21/22 04/20/22 History transdermal patch diltiazem HCl 240 mg 240 mg PO DAILY 04/21/22 04/21/22 04/21/22 History tablet,extended release 24 hr furosemide 20 mg tablet 20 mg PO DAILY 04/21/22 04/21/22 04/21/22 History lidocaine 5 % topical patch 1 patch topical DAILY PRN Pain 04/21/22 04/21/22 Unknown History (Scale Score 1-3) metoprolol tartrate 25 mg tablet 1 tab PO BID 04/21/22 04/21/22 04/21/22 History Physical Exam Vital Signs and Narrative: Vital Signs: Last Vital Signs Temp 98.5 F 04/21/22 08:59 Pulse 110 H 04/21/22 08:59 Resp 22 H 04/21/22 09:54 BP 167/77 H 04/21/22 08:59 Pulse Ox 96 04/21/22 09:54 O2 Del Method 04/21/22 09:54 BMI result Body Mass Index 31.5 Const: General: cooperative, comfortable, alert and awake Nutritional Appearance: overweight Orientation/consciousness: patient oriented x3 Resp: Other: crackles right base Effort & Inspection: normal respiratory effort and able to speak in complete sentences Auscultation: diminished lung sounds Cardio: Rate: regular rate Heart sounds: S1 normal heart sound present and S2 normal heart sound present GI: Inspection: No distended Palpation (GI): Soft to palpation and nontender Neuro: General: patient oriented x3 and CN's II-XI intact bilaterally Extrem: Other: trace to 1+ edema b/l LE Results Labs CBC and Chem 7: 04/21/22 09:41 04/21/22 09:40 Labs: Laboratory Results - last 24 hr 04/21/22 04/21/22 04/21/22 09:40 09:40 09:40 MCV MCH MCHC RDW Plt Count MPV Immature Gran % (Auto) Neut % (Auto) Lymph % (Auto) [place] % (Auto) Eos % (Auto) Baso % (Auto) Lymph # (Auto) [place] # (Auto) Eos # (Auto) Baso # (Auto) Abs Immat Gran (auto) Absolute Neuts (auto) Absolute Nucleated RBC Nucleated RBC % (auto) PT 13.7 H INR 1.2 H APTT 31.1 Anion Gap 15 Estim Creat Clear Calc 56.8 Estimated GFR 59 Random Glucose 260 H D Lactic Acid 2.1 H* Calcium 8.9 Magnesium 1.8 Total Bilirubin 0.5 Direct Bilirubin 0.2 AST 21 ALT 32 Alkaline Phosphatase 127 H Troponin I High Sens B-Natriuretic Peptide Total Protein 6.3 L Albumin 3.2 L Procalcitonin COVID-19 (AZAEL) COVID-19 Clin Com Influenza Type A (KRYSTAL) Influenza Type B (KRYSTAL) Influenza A & B Note 04/21/22 04/21/22 04/21/22 09:40 09:40 09:40 MCV MCH MCHC RDW Plt Count MPV Immature Gran % (Auto) Neut % (Auto) Lymph % (Auto) [place] % (Auto) Eos % (Auto) Baso % (Auto) Lymph # (Auto) [place] # (Auto) Eos # (Auto) Baso # (Auto) Abs Immat Gran (auto) Absolute Neuts (auto) Absolute Nucleated RBC Nucleated RBC % (auto) PT INR APTT Anion Gap Estim Creat Clear Calc Estimated GFR Random Glucose Lactic Acid Calcium Magnesium Total Bilirubin Direct Bilirubin AST ALT Alkaline Phosphatase Troponin I High Sens 23.1 B-Natriuretic Peptide 78 Total Protein Albumin Procalcitonin COVID-19 (AZAEL) Positive A COVID-19 Clin Com See Note Influenza Type A (KRYSTAL) Negative Influenza Type B (KRYSTAL) Negative Influenza A & B Note See Note 04/21/22 04/21/22 09:41 09:41 MCV 93.3 MCH 30.3 MCHC 32.5 RDW 14.4 Plt Count 424 H MPV 9.1 L Immature Gran % (Auto) 0.7 H Neut % (Auto) 66.1 Lymph % (Auto) 15.2 L [place] % (Auto) 10.8 Eos % (Auto) 6.5 H Baso % (Auto) 0.7 Lymph # (Auto) 1.5 [place] # (Auto) 1.1 Eos # (Auto) 0.7 H Baso # (Auto) 0.1 Abs Immat Gran (auto) 0.07 H Absolute Neuts (auto) 6.7 Absolute Nucleated RBC 0.000 Nucleated RBC % (auto) 0.0 PT INR APTT Anion Gap Estim Creat Clear Calc Estimated GFR Random Glucose Lactic Acid Calcium Magnesium Total Bilirubin Direct Bilirubin AST ALT Alkaline Phosphatase Troponin I High Sens B-Natriuretic Peptide Total Protein Albumin Procalcitonin 0.04 COVID-19 (AZAEL) COVID-19 Clin Com Influenza Type A (KRYSTAL) Influenza Type B (KRYSTAL) Influenza A & B Note Imaging Radiologist's Impressions: Impressions Chest X-Ray 04/21/22 10:10 IMPRESSION: Interval development of small right pleural effusion with basilar disease. Assessment and Plan (1) COVID-19: Status: Acute (2) Acute diastolic (congestive) heart failure: Status: Acute (3) Pleural effusion on right: Status: Acute Plan This is an 86 year old female with history of asthma, HTN, HFpEF who presents with SOB found to have heart failure and incidentally was COVID positive Acute on chronic HFpEF BNP 78, CXR with right sided effusion IV lasix low sodium diet follow Is&Os DM hold metformin SSI, POCs HTN Continue diltiazem, metoprolol, valsartan HLD Continue statin Chronic pain Continue Lidoderm patch, buprenorphine patch Asthma Continue home inhalers DVT ppx - lovenox code status - DNR/DNI HCP - daughter Attending - Dr. Kwon Given acute CHF patient will likely require 2 midnight stay in the hospital for IV diuretics and close cardiac monitoring. Quality Stroke Does the patient have a stroke diagnosis?: No VTE Prior VTE?: No VTE Risk Level:: Medical - moderate - high VTE Device Contraindication: N/A - Device Ordered VTE Drug Contraindication: N/A - Med Ordered
[2022-04-21 13:47] LABS: ~Lactic Acid-LAB USE ONLY 2.1 mmol/L (0.5-2.0)
--- NOTE | 2022-04-21 13:59 | PHA.MEDREC ---
Pharmacy Consult ? Medication Reconciliation Pharmacy has completed the medication reconciliation.Spoke with patient in the ED and [facility]. pt is on a buprenorphine patch which he last changed on 04/20/22. patient took all medications this morning .
[2022-04-21 14:15] VITALS: BP 148/60; PULSE 78; RESP 18; O2SAT 94
[2022-04-21 14:24] LABS: Appearance Urine Clear; Color Urine Yellow; Glucose Urine UA Negative (Negative); Leukocyte Esterase Urine Negative (Negative); Nitrite Urine Negative (Negative); Specific Gravity - Urine <= 1.005 (1.005-1.025); Urine Blood Negative (Negative); Urine Ketones Negative (Negative); Urine Protein Trace mg/dL (Neg-Trace)
[2022-04-21 15:24] LABS: Reflex Lactate? 2 Y
[2022-04-21 16:11] LABS: ~Lactic Acid-LAB USE ONLY 2.4 mmol/L (0.5-2.0)
[2022-04-21 16:30] LABS: Cancel Lactic Acid Canceled
[2022-04-21] MEDS: 0.9 % Sodium Chloride Flush 3 ML SYRINGE IVFLUSH (16:35)
--- NOTE | 2022-04-21 16:49 | PM.EVENT ---
Event Note Date of Service: 04/21/22 Event Note: Patient seen and examined-patient came to the hospital because of worsening shortness of breath from 3-4 days also feeling short of breath with exertion, as per the patient also gained some weight. Physical exam: Please see H&P Chest: Breath sounds are diminished at bases, bilateral leg swelling. Lab imaging reviewed CBC BMP seems fine, mild lactic acidosis possible related to metformin Chest [id number] congestion on the lower lobes Assessment and plan coordinated in H&P note Agree with plan Shortness of breath seems somewhat improving, continue IV Lasix Monitor renal function electrolytes COVID positive but not hypoxic-no intervention currently.
[2022-04-21 17:41] VITALS: BP 155/60; PULSE 86; RESP 16; O2SAT 92
--- NOTE | 2022-04-21 17:42 | PC.NURSE ---
Pt remains alert/oriented. Offers no complaints at this time. RA sat 92%, no diff breathing at rest, placed on 2lpm via sat up to 95%. Awaits bed assgnd
[2022-04-21 17:54] LABS: Glucose, Whole Blood 116 mg/dL (60-115)
[2022-04-21 18:04] VITALS: BP 141/61; PULSE 88; RESP 18; O2SAT 96
[2022-04-21 20:30] VITALS: BP 141/51; PULSE 89; RESP 15; TEMP 37; O2SAT 95
[2022-04-21] MEDS: Montelukast Sodium 10 MG TABLET PO (20:32)
[2022-04-21] MEDS: Metoprolol Tartrate 25 MG TABLET PO (20:32)
--- NOTE | 2022-04-21 20:46 | PC.NURSE ---
patient resting comfortably in bed. resp equal an unlabored. denies SOB at this time. 95% on room air. routine night medications admin. call selby within reach, able to make needs known. will continue to monitor
[2022-04-21] MEDS: Insulin Lispro 100 UNIT/ML 3 ML VIAL SUBCUT (21:13)
[2022-04-21 21:15] LABS: Glucose, Whole Blood 159 mg/dL (60-115)
--- NOTE | 2022-04-21 21:53 | PC.NURSE ---
nurse to nurse report called to the ED overflow unit
[2022-04-22] VITALS: BP 166/38; PULSE 93; RESP 16; TEMP 36.6; O2SAT 94
[2022-04-22] MEDS: 0.9 % Sodium Chloride Flush 3 ML SYRINGE IVFLUSH ×4 (00:13→23:25)
[2022-04-22] MEDS: Omeprazole 20 MG CAPSULE.DR PO (06:35)
[2022-04-22 08:08] LABS: Glucose, Whole Blood 149 mg/dL (60-115)
[2022-04-22] MEDS: Multivitamin TABLET 1 TAB PO (08:10)
[2022-04-22] MEDS: dilTIAZem HCL CD 240 MG CAP.ER.DEG PO (08:10)
[2022-04-22] MEDS: Metoprolol Tartrate 25 MG TABLET PO ×2 (08:10→21:10)
[2022-04-22] MEDS: Valsartan 320 MG TABLET PO (08:10)
[2022-04-22] MEDS: Loratadine 10 MG TABLET PO (08:10)
[2022-04-22] MEDS: Atorvastatin Calcium 40 MG TABLET PO (08:10)
[2022-04-22] MEDS: Doxazosin Mesylate 2 MG TABLET PO (08:10)
[2022-04-22] MEDS: Furosemide 40 MG/4 ML VIAL IVPUSH ×2 (08:11→18:07)
[2022-04-22] MEDS: Aspirin Enteric Coated 81 MG TABLET.DR PO (08:14)
[2022-04-22 08:30] LABS: Hematocrit 31.2 % (42.0-52.0); Hemoglobin 9.9 g/dl (14.0-18.0); Mean Corpuscular HGB Conc 31.7 g/dl (31.0-36.0); Mean Corpuscular Hemoglobin 29.5 pg (27.0-33.0); Mean Corpuscular Volume 92.9 fL (80.0-98.0); Mean Platelet Volume 9.9 fL (9.4-12.4); Platelet Count 393 X10*3/uL (160-400); Red Blood Count 3.36 X10*6/uL (4.60-5.80); Red Cell Distribution Width 14.3 % (11.0-16.0); White Blood Count 10.8 X10*3/uL (4.8-10.8)
[2022-04-22 08:45] LABS: Anion Gap 17 (12-20); Blood Urea Nitrogen 23 mg/dL (9-16); Calcium 8.8 mg/dL (8.4-10.2); Carbon Dioxide 27 mmol/L (22-29); Chloride 100 mmol/L (96-108); Estimated Glomerular Filt Rate > 60; Glucose Random 147 mg/dL (60-115); Sodium 139 mmol/L (135-145)
[2022-04-22 12:10] LABS: Glucose, Whole Blood 137 mg/dL (60-115)
--- NOTE | 2022-04-22 13:55 | P.PNIM_ITS ---
Subjective Subjective Date of Service: 04/22/22 Interval History: seen and examined this morning follow up for chf, covid 19 breathing improving, having trouble urinating this morning no fever, cough, body aches Review of Systems Review of Systems: Yes all other systems are reviewed and are negative Constitutional Constitutional: Denies chills and Denies fever(s) Cardiovascular Cardiovascular: Denies chest pain, Denies palpitations, Denies dyspnea and Reports dyspnea on exertion Respiratory Respiratory: Denies cough, Denies dyspnea and Reports dyspnea on exertion Gastrointestinal Gastrointestinal: Denies abdominal pain, Denies nausea and Denies vomiting Endocrine Endocrine: Denies palpitations Physical Exam Vital Signs: Vital Signs: Last Vital Signs Temp 97.9 F 04/22/22 00:00 Pulse 93 04/22/22 00:00 Resp 16 04/22/22 00:00 BP 166/38 H 04/22/22 00:00 Pulse Ox 94 04/22/22 00:00 O2 Del Method 04/22/22 00:00 BMI result Body Mass Index 31.5 Const: General: cooperative, comfortable, alert and awake Nutritional Ap pearance: overweight Orientation/consciousness: patient oriented x3 Resp: Other: crackles right base Effort & Inspection: normal respiratory effort and able to speak in complete sentences Auscultation: diminished lung sounds Cardio: Rate: regular rate Heart sounds: S1 normal heart sound present and S2 normal heart sound present GI: Inspection: No distended Palpation (GI): Soft to palpation and nontender Skin: Other: chronic venous stasis changes b/l lower extremities Neuro: General: patient oriented x3 and CN's II-XI intact bilaterally Extrem: Other: trace edema b/l LE, improving Objective Data Active Medications Acetaminophen (Acetaminophen 325 Mg Tablet) 650 mg PO Q6H PRN PRN Reason: Pain, Mild (Pain Scale 1-3) Albuterol/Ipratropium (Albuterol/Iprat 2.5/0.5mg 3 Ml Ampul.Neb) 3 ml INHALE Q6H PRN PRN Reason: Wheezing Aspirin (Aspirin Enteric Coated 81 Mg Tablet.) 81 mg PO DAILY [facility] Last Admin: 04/22/22 08:14 Dose: 81 mg Documented By: YANE Atorvastatin Calcium (Atorvastatin Calcium 40 Mg Tablet) 40 mg PO DAILY [facility] Last Admin: 04/22/22 08:10 Dose: 40 mg Documented By: YANE Dextrose (Dextrose 50 % 25 Gm/50 Ml Syringe) 25 gm IVPUSH Q15M PRN; Protocol PRN Reason: per Hypoglycemia Standing Ord. Diltiazem HCl (Diltiazem Hcl Cd 240 Mg Cap.Er.Deg) 240 mg PO DAILY [facility]; Protocol Last Admin: 04/22/22 08:10 Dose: 240 mg Documented By: YANE Docusate Sodium (Docusate Sodium 100 Mg Capsule) 100 mg PO DAILY PRN PRN Reason: Constipation Doxazosin Mesylate (Doxazosin Mesylate 2 Mg Tablet) 2 mg PO DAILY [facility]; Protocol Last Admin: 04/22/22 08:10 Dose: 2 mg Documented By: YANE Furosemide (Furosemide 40 Mg/4 Ml Vial) 40 mg IVPUSH BID@0900,1800 [facility]; P rotocol Last Admin: 04/22/22 08:11 Dose: 40 mg Documented By: YANE Glucose (Glucose Gel 15 Gm Gel..Gram.) 15 gm PO Q15M PRN; Protocol PRN Reason: per Hypoglycemia Standing Ord. Insulin Human Lispro (Insulin Lispro 100 Unit/Ml 3 Ml Vial) 0 unit SUBCUT QIDACHS [facility]; Protocol Last Admin: 04/22/22 12:36 Dose: Not Given Documented By: YANE Non-Admin Reason: No Insulin Coverage Lidocaine (Lidocaine 4 % Patch Adh..Patch) 1 patch TRANSDERMA DAILY PRN PRN Reason: Pain (Scale Score 1-3) Loratadine (Loratadine 10 Mg Tablet) 10 mg PO DAILY [facility] Last Admin: 04/22/22 08:10 Dose: 10 mg Documented By: YANE Metoprolol Tartrate (Metoprolol Tartrate 25 Mg Tablet) 25 mg PO BID [facility]; Protocol Last Admin: 04/22/22 08:10 Dose: 25 mg Documented By: YANE Montelukast Sodium (Montelukast Sodium 10 Mg Tablet) 10 mg PO BEDTIME [facility] Last Admin: 04/21/22 20:32 Dose: 10 mg Documented By: HEIDI Multivitamins/Vitamin C (Multivitamin Tablet) 1 tab PO DAILY [facility] Last Admin: 04/22/22 08:10 Dose: 1 tab Documented By: YANE Non-Formulary Medication (Buprenorphine) 1 patch TRANSDERMA SA@0900 [facility] Non-Formulary Medication (Mometasone [Asmanex Twisthaler]) 2 inhalation INHALE BID [facility] Omeprazole (Omeprazole 20 Mg Capsule.Dr) 20 mg PO DAILY@0630 [facility] Last Admin: 04/22/22 06:35 Dose: 20 mg Documented By: ROBERTO Ondansetron HCl (Ondansetron Hcl 4 Mg/2 Ml Vial) 4 mg IVPUSH Q8H PRN PRN Reason: Nausea and Vomiting Pharmacy Consult (Consult Rx Perform Med Rec) 1 each MISCELLANE ONCE PRN PRN Reason: Consult order Sodium Chloride (0.9 % Sodium Chloride Flush 3 Ml Syringe) 3 ml IVFLUSH QSHIFT [facility] Last Admin: 04/22/22 08:11 Dose: 3 ml Documented By: YANE Valsartan (Valsartan 320 Mg Tablet) 320 mg PO DAILY [facility]; Protocol Last Admin: 04/22/22 08:10 Dose: 320 mg Documented By: YANE Labs CBC & Chem 7: 04/22/22 07:33 04/22/22 07:33 Labs: Laboratory Results - last 24 hr 04/21/22 04/21/22 04/21/22 14:13 15:49 17:50 MCV MCH MCHC RDW Plt Count MPV Absolute Nucleated RBC Nucleated RBC % (auto) Anion Gap Estim Creat Clear Calc Estimated GFR POC Glucose 116 H Random Glucose Lactic Acid F/U @ 4Hr 2.4 H* Calcium Urine Color Yellow Urine Appearance Clear Urine pH 6.0 Ur Specific [place] <= 1.005 Urine Protein Trace Urine Glucose (UA) Negative Urine Ketones Negative Urine Blood Negative Urine Nitrite Negative Ur Leukocyte Esterase Negative 04/21/22 04/22/22 04/22/22 21:09 07:33 07:33 MCV 92.9 MCH 29.5 MCHC 31.7 RDW 14.3 Plt Count 393 MPV 9.9 Absolute Nucleated RBC 0.000 Nucleated RBC % (auto) 0.0 Anion Gap 17 Estim Creat Clear Calc 61.0 Estimated GFR > 60 POC Glucose 159 H Random Glucose 147 H D Lactic Acid F/U @ 4Hr Calcium 8.8 Urine Color Urine Appearance Urine pH Ur Specific [place] Urine Protein Urine Glucose (UA) Urine Ketones Urine Blood Urine Nitrite Ur Leukocyte Esterase 04/22/22 04/22/22 08:01 12:05 MCV MCH MCHC RDW Plt Count MPV Absolute Nucleated RBC Nucleated RBC % (auto) Anion Gap Estim Creat Clear Calc Estimated GFR POC Glucose 149 H 137 H Random Glucose Lactic Acid F/U @ 4Hr Calcium Urine Color Urine Appearance Urine pH Ur Specific [place] Urine Protein Urine Glucose (UA) Urine Ketones Urine Blood Urine Nitrite Ur Leukocyte Esterase Microbiology Microbiology Results: Microbiology 04/21/22 10:00 Blood Culture - Preliminary Blood - Venous No growth after 24 hours. 04/21/22 09:40 Blood Culture - Preliminary Blood - Venous No growth after 24 hours. Assessment and Plan (1) COVID-19: Status: Acute (2) Acute diastolic (congestive) heart failure: Status: Acute Plan This is an 86 year old female with history of asthma, HTN, HFpEF who presents with SOB found to have heart failure and incidentally was COVID positive Acute on chronic HFpEF BNP 78 low but CXR with right sided effusion, leg edema, history c/w CHF. Is&Os not accurate, but leg edema and dyspnea improving Continue IV lasix low sodium diet follow BMP COVID 19 asymptomatic no hypoxia follow respiratory status urinary retention pt reported difficulty urinating this am bladder scanned for nearly a Liter hanna ordered, but pt was then able to void and wanted to avoid hanna if able continue cardura DM hold metformin SSI, POCs HTN Continue diltiazem, metoprolol, valsartan HLD Continue statin Chronic pain Continue Lidoderm patch, buprenorphine patch Asthma Continue home inhalers DVT ppx - lovenox code status - DNR/DNI HCP - daughter Attending - Dr. Aviles Patient requires ongoing inpatient hospitalization for management of acute on chronic CHF requiring IV diuretics and close telemetry monitoring Quality Stroke Does the patient have a stroke diagnosis?: No VTE Prior VTE?: No VTE Risk Level:: Medical - moderate - high VTE Device Contraindication: N/A - Device Ordered VTE Drug Contraindication: N/A - Med Ordered
[2022-04-22 15:34] VITALS: BP 115/45; PULSE 76; RESP 17; TEMP 36.3; O2SAT 92
[2022-04-22] MEDS: Enoxaparin Sodium 40 MG/0.4 ML SYRINGE SUBCUT (15:37)
--- NOTE | 2022-04-22 16:55 | PC.NURSE ---
Pt bladder scanned this morning for 980ml, ROUTER OPERATOR PIN informed and straight cath order was put in. Pt educated on the importance of urinating before the need for straight cath with positive effect. Pt was able to urinate and post bladder scan was 123. ROUTER OPERATOR PIN informed that pt was able to void. Safety and fall precautions maintained.
[2022-04-22 17:16] LABS: Glucose, Whole Blood 153 mg/dL (60-115)
[2022-04-22] MEDS: Insulin Lispro 100 UNIT/ML 3 ML VIAL SUBCUT ×2 (18:07→21:10)
[2022-04-22 18:10] VITALS: BP 117/53
[2022-04-22 20:23] LABS: Glucose, Whole Blood 153 mg/dL (60-115)
[2022-04-22] MEDS: Montelukast Sodium 10 MG TABLET PO (21:10)
[2022-04-22 22:22] LABS: Glucose, Whole Blood 110 mg/dL (60-115)
[2022-04-22] MEDS: Albuterol/Iprat 2.5/0.5MG 3 ML AMPUL.NEB INHALE (23:50)
[2022-04-22 23:54] VITALS: PULSE 81; RESP 16; O2SAT 91
[2022-04-23] VITALS (7 sets, daily range): BP systolic 121–155; BP diastolic 55–69; PULSE 70–94; RESP 16–20; TEMP 36.3–36.9; O2SAT 92–94; BMI 31.5
[2022-04-23] MEDS: Omeprazole 20 MG CAPSULE.DR PO (05:40)
[2022-04-23 07:53] LABS: Anion Gap 20 (12-20); Blood Urea Nitrogen 36 mg/dL (9-16); Calcium 8.7 mg/dL (8.4-10.2); Carbon Dioxide 24 mmol/L (22-29); Chloride 99 mmol/L (96-108); Creatinine Clr Calc Pharmacy 41.3; Estimated Glomerular Filt Rate 41; Glucose Random 164 mg/dL (60-115); Potassium 4.6 mmol/L (3.3-5.1); Sodium 138 mmol/L (135-145)
[2022-04-23 07:56] LABS: Glucose, Whole Blood 155 mg/dL (60-115)
[2022-04-23] MEDS: Furosemide 40 MG/4 ML VIAL IVPUSH (08:28)
[2022-04-23] MEDS: Insulin Lispro 100 UNIT/ML 3 ML VIAL SUBCUT ×3 (08:28→21:49)
[2022-04-23] MEDS: Loratadine 10 MG TABLET PO (08:28)
[2022-04-23] MEDS: Metoprolol Tartrate 25 MG TABLET PO ×2 (08:28→21:48)
[2022-04-23] MEDS: dilTIAZem HCL CD 240 MG CAP.ER.DEG PO (08:28)
[2022-04-23] MEDS: Valsartan 320 MG TABLET PO (08:29)
[2022-04-23] MEDS: Atorvastatin Calcium 40 MG TABLET PO (08:29)
[2022-04-23] MEDS: Aspirin Enteric Coated 81 MG TABLET.DR PO (08:29)
[2022-04-23] MEDS: 0.9 % Sodium Chloride Flush 3 ML SYRINGE IVFLUSH ×2 (08:29→13:50)
[2022-04-23] MEDS: Doxazosin Mesylate 2 MG TABLET PO (08:29)
[2022-04-23] MEDS: Multivitamin TABLET 1 TAB PO (08:29)
--- NOTE | 2022-04-23 08:51 | MHC.CM.PN ---
IMM DELIVERED CM SPOKE WITH PATIENT'S DAUGHTER/HCP BRIAN. PT LIVES ALONE IN A SINGLE FAMILY HOME, IS INDEPENDENT AT BASELINE. USES A WHEELED WALKER/HAS SHOWER/TUB BENCH. + HCP ON FILE, COVID VAX X 4 WITH MODERNA. PER DAUGHTER, PT WOULD NOT BE OPEN TO SNF IF RECOMMENDED BUT WOULD LIKE TO CONTINUE WITH [facility]. PT ACTIVE WITH [facility] AND RETURN REFERRAL SENT. dp: DAUGHTER WILL TRANSPORT HOME ON DC. CM WILL CONTINUE TO FOLLOW FOR DC NEEDS.
--- NOTE | 2022-04-23 11:12 | P.PNIM_ITS ---
Subjective Subjective Date of Service: 04/23/22 Interval History: Follow up for chf, covid 19 breathing improving, having trouble urinating this morning no fever, cough, body aches Review of Systems Review of Systems: Yes all other systems are reviewed and are negative Constitutional Constitutional: Denies chills and Denies fever(s) Cardiovascular Cardiovascular: Denies chest pain, Denies palpitations, Denies dyspnea and Repor ts dyspnea on exertion Respiratory Respiratory: Denies cough, Denies dyspnea and Reports dyspnea on exertion Gastrointestinal Gastrointestinal: Denies abdominal pain, Denies nausea and Denies vomiting Endocrine Endocrine: Denies palpitations Physical Exam Vital Signs: Vital Signs: Last Vital Signs Temp 98.2 F 04/23/22 07:36 Pulse 93 04/23/22 07:36 Resp 20 04/23/22 07:36 BP 155/69 H 04/23/22 07:36 Pulse Ox 92 04/23/22 07:36 O2 Del Method 04/23/22 07:36 BMI result Body Mass Index 31.5 Appearing in no acute distress lung sounds are clear to auscultation heart regular rate rhythm, clear S1, S2 positive bowel sounds, abdomen is soft, nontender neuro patient is alert x3, no focal deficits Objective Data Active Medications Acetaminophen (Acetaminophen 325 Mg Tablet) 650 mg PO Q6H PRN PRN Reason: Pain, Mild (Pain Scale 1-3) Albuterol/Ipratropium (Albuterol/Iprat 2.5/0.5mg 3 Ml Ampul.Neb) 3 ml INHALE Q6H PRN PRN Reason: Wheezing Last Admin: 04/22/22 23:50 Dose: 3 ml Documented By: MORGAN Aspirin (Aspirin Enteric Coated 81 Mg Tablet.) 81 mg PO DAILY [facility] Last Admin: 04/23/22 08:29 Dose: 81 mg Documented By: YANE Atorvastatin Calcium (Atorvastatin Calcium 40 Mg Tablet) 40 mg PO DAILY [facility] Last Admin: 04/23/22 08:29 Dose: 40 mg Documented By: YANE Dextrose (Dextrose 50 % 25 Gm/50 Ml Syringe) 25 gm IVPUSH Q15M PRN; Protocol PRN Reason: per Hypoglycemia Standing Ord. Diltiazem HCl (Diltiazem Hcl Cd 240 Mg Cap.Er.Deg) 240 mg PO DAILY [facility]; Protocol Last Admin: 04/23/22 08:28 Dose: 240 mg Documented By: YANE Docusate Sodium (Docusate Sodium 100 Mg Capsule) 100 mg PO DAILY PRN PRN Reason: Constipation Doxazosin Mesylate (Doxazosin Mesylate 2 Mg Tablet) 2 mg PO DAILY [facility]; Protocol Last Admin: 04/23/22 08:29 Dose: 2 mg Documented By: YANE Enoxaparin Sodium (Enoxaparin Sodium 40 Mg/0.4 Ml Syringe) 40 mg SUBCUT Q24H [facility] Last Admin: 04/22/22 15:37 Dose: 40 mg Documented By: YANE Furosemide (Furosemide 40 Mg/4 Ml Vial) 40 mg IVPUSH BID@0900,1800 [facility]; Protocol Last Admin: 04/23/22 08:28 Dose: 40 mg Documented By: YANE Glucose (Glucose Gel 15 Gm Gel..Gram.) 15 gm PO Q15M PRN; Protocol PRN Reason: per Hypoglycemia Standing Ord. Insulin Human Lispro (Insulin Lispro 100 Unit/Ml 3 Ml Vial) 0 unit SUBCUT QIDACHS [facility]; Protocol Last Admin: 04/23/22 08:28 Dose: 2 unit Documented By: YANE Lidocaine (Lidocaine 4 % Patch Adh..Patch) 1 patch TRANSDERMA DAILY PRN PRN Reason: Pain (Scale Score 1-3) Loratadine (Loratadine 10 Mg Tablet) 10 mg PO DAILY [facility] Last Admin: 04/23/22 08:28 Dose: 10 mg Documented By: YANE Metoprolol Tartrate (Metoprolol Tartrate 25 Mg Tablet) 25 mg PO BID [facility]; Protocol Last Admin: 04/23/22 08:28 Dose: 25 mg Documented By: YANE Montelukast Sodium (Montelukast Sodium 10 Mg Tablet) 10 mg PO BEDTIME [facility] Last Admin: 04/22/22 21:10 Dose: 10 mg Documented By: ERICA Multivitamins/Vitamin C (Multivitamin Tablet) 1 tab PO DAILY [facility] Last Admin: 04/23/22 08:29 Dose: 1 tab Documented By: YANE Non-Formulary Medication (Buprenorphine) 1 patch TRANSDERMA SA@0900 [facility] Non-Formulary Medication (Mometasone [Asmanex Twisthaler]) 2 inhalation INHALE BID [facility] Omeprazole (Omeprazole 20 Mg Capsule.) 20 mg PO DAILY@0630 [facility] Last Admin: 04/23/22 05:40 Dose: 20 mg Documented By: SARY Ondansetron HCl (Ondansetron Hcl 4 Mg/2 Ml Vial) 4 mg IVPUSH Q8H PRN PRN Reason: Nausea and Vomiting Pharmacy Consult (Consult Rx Perform Med Rec) 1 each MISCELLANE ONCE PRN PRN Reason: Consult order Sodium Chloride (0.9 % Sodium Chloride Flush 3 Ml Syringe) 3 ml IVFLUSH QSHIFT [facility] Last Admin: 04/23/22 08:29 Dose: 3 ml Documented By: YANE Valsartan (Valsartan 320 Mg Tablet) 320 mg PO DAILY [facility]; Protocol Last Admin: 04/23/22 08:29 Dose: 320 mg Documented By: YANE Labs CBC & Chem 7: 04/22/22 07:33 04/23/22 06:18 Labs: Laboratory Results - last 24 hr 04/22/22 04/22/22 04/22/22 12:05 17:12 20:19 Anion Gap Estim Creat Clear Calc Estimated GFR POC Glucose 137 H 153 H 153 H Random Glucose Calcium 04/22/22 04/23/22 04/23/22 22:14 06:18 07:41 Anion Gap 20 Estim Creat Clear Calc 41.3 Estimated GFR 41 POC Glucose 110 155 H Random Glucose 164 H Calcium 8.7 Microbiology Microbiology Results: Microbiology 04/21/22 10:00 Blood Culture - Preliminary Blood - Venous No growth after 24 hours. 04/21/22 09:40 Blood Culture - Preliminary Blood - Venous No growth after 24 hours. Assessment and Plan (1) COVID-19: Status: Acute (2) Acute diastolic (congestive) heart failure: Status: Acute Plan This is an 86 year old female with history of asthma, HTN, HFpEF who presents with SOB found to have heart failure and incidentally was COVID positive JOSI Likely from IV lasix, stopped and switched to oral Follow BMP Acute on chronic HFpEF no sob Legs look dry,Leg edema much improved stop IV Lasix Restart home dose of 20 mg daily COVID 19 asymptomatic no hypoxia follow respiratory status urinary retention. Resolved continue cardura DM hold metformin SSI, POCs HTN Continue diltiazem, metoprolol, valsartan HLD Continue statin Chronic pain Continue Lidoderm patch, buprenorphine patch Asthma Continue home inhalers DVT ppx - lovenox code status - DNR/DNI Attending - Dr. Guzmán DISPO likely home tomorrow if renal functiom better Patient requires ongoing inpatient hospitalization for management of acute on ch ronic CHF requiring IV diuretics and close telemetry monitoring Quality Stroke Does the patient have a stroke diagnosis?: No VTE Prior VTE?: No VTE Risk Level:: Medical - moderate - high VTE Device Contraindication: N/A - Device Ordered VTE Drug Contraindication: N/A - Med Ordered
[2022-04-23 11:13] LABS: Glucose, Whole Blood 245 mg/dL (60-115)
[2022-04-23] MEDS: Enoxaparin Sodium 40 MG/0.4 ML SYRINGE SUBCUT (13:50)
[2022-04-23 16:05] LABS: Glucose, Whole Blood 114 mg/dL (60-115)
[2022-04-23 19:43] LABS: Glucose, Whole Blood 170 mg/dL (60-115)
[2022-04-23] MEDS: Montelukast Sodium 10 MG TABLET PO (21:48)
[2022-04-24 02:51] VITALS: BP 127/61; PULSE 70; RESP 18; TEMP 36.6; O2SAT 92
[2022-04-24] MEDS: 0.9 % Sodium Chloride Flush 3 ML SYRINGE IVFLUSH ×3 (05:48→17:12)
[2022-04-24] MEDS: Omeprazole 20 MG CAPSULE.DR PO (05:48)
[2022-04-24 06:21] LABS: Anion Gap 14 (12-20); Blood Urea Nitrogen 46 mg/dL (9-16); Calcium 8.4 mg/dL (8.4-10.2); Carbon Dioxide 29 mmol/L (22-29); Chloride 99 mmol/L (96-108); Creatinine Clr Calc Pharmacy 37.3; Estimated Glomerular Filt Rate 36; Glucose Random 154 mg/dL (60-115); Potassium 4.8 mmol/L (3.3-5.1); Sodium 137 mmol/L (135-145)
[2022-04-24 07:32] VITALS: BP 154/67; PULSE 73; RESP 18; TEMP 36.7; O2SAT 95
[2022-04-24 07:54] LABS: Glucose, Whole Blood 145 mg/dL (60-115)
[2022-04-24] MEDS: Multivitamin TABLET 1 TAB PO (08:10)
[2022-04-24] MEDS: Atorvastatin Calcium 40 MG TABLET PO (08:10)
[2022-04-24] MEDS: Furosemide 20 MG TABLET PO (08:10)
[2022-04-24] MEDS: Aspirin Enteric Coated 81 MG TABLET.DR PO (08:10)
[2022-04-24] MEDS: Valsartan 320 MG TABLET PO (08:10)
[2022-04-24] MEDS: Metoprolol Tartrate 25 MG TABLET PO ×2 (08:10→21:06)
[2022-04-24] MEDS: dilTIAZem HCL CD 240 MG CAP.ER.DEG PO (08:10)
[2022-04-24] MEDS: Loratadine 10 MG TABLET PO (08:10)
[2022-04-24] MEDS: Doxazosin Mesylate 2 MG TABLET PO (08:10)
--- NOTE | 2022-04-24 09:40 | PM.CNNEP ---
History of Present Illness Reason for Consult Consult date: 04/24/22 Reason for consult: JOSI Chief Complaint Chief complaint: Dyspnea History of Present Illness Narrative: 86-year-old male with CKD 3 at baseline who presented to the emergency department with shortness of breath which had been progressively worse on exertion, prior to presentation.? He had increase in his lower extremity swelling and a weight gain of 5 lb prior to arrival.? He had been compliant with his Lasix and low-salt diet.? He denies any associated chest pain or palpitations.? In the emergency department BNP was normal, chest x-ray showed small right pleural effusion. He was given a dose of lasix with good urine output and the decision was made to admit him for further management.? Incidentally he was noted to be COVID positive.? He denies any cough, fever, chills, body aches, recent sick contacts.?His serum creatinine had gone up and nephrology was consulted to assist in his clinical care during his current hospital stay. Review of Systems Review of Systems Yes all other systems are reviewed and are negative [facility] Past Medical History Medical History (Updated 04/24/22 @ 09:46 by Reed Swann MD) Arthritis Diabetes Diastolic heart failure Emphysema of lung HTN (hypertension) Hypertension Varicose veins of right lower extremity with inflammation Functional capacity: uses cane/walker Family History Family History Father No problems noted. Mother Cancer Brother No problems noted. Daughter No problems noted. Surgical History Surgical History History of knee replacement (09/30/12) Social History Social History Household Members: None Housing: House Do you presently have visiting nurse or other home services: Yes Alcohol intake: current Alcohol intake frequency: holidays/special occasions only Patient Tobacco Use Status: Former Tobacco user Quit Date: 30 years ago Tobacco use type: Cigarette Advance Directives Date on File: 08/11/21 service: Yes Current occupational status: retired Meds Allergies Allergy/AdvReac Type Severity Reaction Status Date / Time No Known Allergies Allergy Verified 07/25/21 14:11 Active Medications: Current Medications Acetaminophen (Acetaminophen 325 Mg Tablet) 650 mg PO Q6H PRN PRN Reason: Pain, Mild (Pain Scale 1-3) Albuterol/Ipratropium (Albuterol/Iprat 2.5/0.5mg 3 Ml Ampul.Neb) 3 ml INHALE Q6H PRN PRN Reason: Wheezing Last Admin: 04/22/22 23:50 Dose: 3 ml Aspirin (Aspirin Enteric Coated 81 Mg Tablet.Dr) 81 mg PO DAILY COUNT INCLUDES THE [facility] Last Admin: 04/24/22 08:10 Dose: 81 mg Atorvastatin Calcium (Atorvastatin Calcium 40 Mg Tablet) 40 mg PO DAILY COUNT INCLUDES THE [facility] Last Admin: 04/24/22 08:10 Dose: 40 mg Dextrose (Dextrose 50 % 25 Gm/50 Ml Syringe) 25 gm IVPUSH Q15M PRN; Protocol PRN Reason: per Hypoglycemia Standing Ord. Diltiazem HCl (Diltiazem Hcl Cd 240 Mg Cap.Er.Deg) 240 mg PO DAILY COUNT INCLUDES THE [facility]; Protocol Last Admin: 04/24/22 08:10 Dose: 240 mg Docusate Sodium (Docusate Sodium 100 Mg Capsule) 100 mg PO DAILY PRN PRN Reason: Constipation Doxazosin Mesylate (Doxazosin Mesylate 2 Mg Tablet) 2 mg PO DAILY COUNT INCLUDES THE [facility]; Protocol Last Admin: 04/24/22 08:10 Dose: 2 mg Furosemide (Furosemide 20 Mg Tablet) 20 mg PO DAILY COUNT INCLUDES THE [facility]; Protocol Last Admin: 04/24/22 08:10 Dose: 20 mg Glucose (Glucose Gel 15 Gm Gel..Gram.) 15 gm PO Q15M PRN; Protocol PRN Reason: per Hypoglycemia Standing Ord. Insulin Human Lispro (Insulin Lispro 100 Unit/Ml 3 Ml Vial) 0 unit SUBCUT QIDACHS COUNT INCLUDES THE [facility]; Protocol Last Admin: 04/24/22 08:02 Dose: Not Given Lidocaine (Lidocaine 4 % Patch Adh..Patch) 1 patch TRANSDERMA DAILY PRN PRN Reason: Pain (Scale Score 1-3) Loratadine (Loratadine 10 Mg Tablet) 10 mg PO DAILY COUNT INCLUDES THE [facility] Last Admin: 04/24/22 08:10 Dose: 10 mg Metoprolol Tartrate (Metoprolol Tartrate 25 Mg Tablet) 25 mg PO BID COUNT INCLUDES THE [facility]; Protocol Last Admin: 04/24/22 08:10 Dose: 25 mg Montelukast Sodium (Montelukast Sodium 10 Mg Tablet) 10 mg PO BEDTIME COUNT INCLUDES THE [facility] Last Admin: 04/23/22 21:48 Dose: 10 mg Multivitamins/Vitamin C (Multivitamin Tablet) 1 tab PO DAILY COUNT INCLUDES THE [facility] Last Admin: 04/24/22 08:10 Dose: 1 tab Non-Formulary Medication (Buprenorphine) 1 patch TRANSDERMA SA@0900 COUNT INCLUDES THE [facility] Non-Formulary Medication (Mometasone [Asmanex Twisthaler]) 2 inhalation INHALE BID COUNT INCLUDES THE [facility] Omeprazole (Omeprazole 20 Mg Capsule.Dr) 20 mg PO DAILY@0630 COUNT INCLUDES THE [facility] Last Admin: 04/24/22 05:48 Dose: 20 mg Ondansetron HCl (Ondansetron Hcl 4 Mg/2 Ml Vial) 4 mg IVPUSH Q8H PRN PRN Reason: Nausea and Vomiting Pharmacy Consult (Consult Rx Perform Med Rec) 1 each MISCELLANE ONCE PRN PRN Reason: Consult order Sodium Chloride (0.9 % Sodium Chloride Flush 3 Ml Syringe) 3 ml IVFLUSH QSHIFT COUNT INCLUDES THE [facility] Last Admin: 04/24/22 08:10 Dose: 3 ml Valsartan (Valsartan 320 Mg Tablet) 320 mg PO DAILY COUNT INCLUDES THE [facility]; Protocol Last Admin: 04/24/22 08:10 Dose: 320 mg Home Medications Medication Instructions Recorded Confirmed Last Taken Type doxazosin 2 mg tablet 2 mg PO DAILY 06/14/21 04/21/22 04/21/22 History ipratropium 20 mcg-albuterol 100 1 puff inhalation Q6H PRN Wheezing 06/14/21 04/21/22 06/13/21 History mcg/actuation mist for inhalation (Combivent Respimat) loratadine 10 mg tablet 10 mg PO DAILY 06/14/21 04/21/22 06/13/21 History metformin 500 mg tablet 500 mg PO BID 06/14/21 04/21/22 04/21/22 History mometasone 220 mcg/actuation(60 2 inh inhalation BID 06/14/21 04/21/22 04/21/22 History doses) breath activated powder inhaler (Asmanex Twisthaler) multivitamin 1 tab PO DAILY 06/14/21 04/21/22 04/21/22 History omeprazole 20 mg capsule,delayed 20 mg PO DAILY@0630 06/14/21 04/21/22 04/21/22 History release valsartan 320 mg tablet 320 mg PO DAILY 06/14/21 04/21/22 04/21/22 History zafirlukast 20 mg tablet 20 mg PO BID 06/14/21 04/21/22 04/21/22 History aspirin 81 mg tablet,delayed 81 mg PO DAILY 04/21/22 04/21/22 Unknown History release atorvastatin 80 mg tablet 40 mg PO DAILY 04/21/22 04/21/22 04/21/22 History buprenorphine 20 mcg/hour weekly 1 patch transdermal SA@0900 04/21/22 04/21/22 04/20/22 History transdermal patch diltiazem HCl 240 mg 240 mg PO DAILY 04/21/22 04/21/22 04/21/22 History tablet,extended release 24 hr furosemide 20 mg tablet 20 mg PO DAILY 04/21/22 04/21/22 04/21/22 History lidocaine 5 % topical patch 1 patch topical DAILY PRN Pain 04/21/22 04/21/22 Unknown History (Scale Score 1-3) metoprolol tartrate 25 mg tablet 1 tab PO BID 04/21/22 04/21/22 04/21/22 History Physical Exam Vital Signs: Last Vital Signs Temp 98.1 F 04/24/22 07:32 Pulse 73 04/24/22 07:32 Resp 18 04/24/22 07:32 BP 154/67 H 04/24/22 07:32 Pulse Ox 95 04/24/22 07:32 O2 Del Method 04/24/22 07:32 BMI result Body Mass Index 31.5 Const General: no acute distress Orientation/consciousness: patient oriented x3 Eyes EOM: EOMs intact bilaterally Neck Neck: Yes supple Resp Auscultation: diminished lung sounds Cardio Rate: regular rate GI Palpation (GI): Soft to palpation Neuro General: patient oriented x3 and moves all extremities Results Lab Results Result Diagrams: 04/22/22 07:33 04/24/22 05:51 Lab results: Chemistry 04/21/22 04/22/22 04/23/22 09:40 07:33 06:18 Sodium 137 139 138 Potassium 4.8 5.0 4.6 Carbon Dioxide 25 27 24 BUN 21 H D 23 H 36 H D Creatinine 1.17 1.09 1.61 H Calcium 8.9 8.8 8.7 04/24/22 05:51 Sodium 137 Potassium 4.8 Carbon Dioxide 29 BUN 46 H Creatinine 1.78 H Calcium 8.4 Hematology 04/21/22 04/22/22 09:41 07:33 WBC 10.1 10.8 Hgb 10.0 L 9.9 L Plt Count 424 H 393 Urinalysis 04/21/22 14:13 Urine Color Yellow Urine Appearance Clear Urine pH 6.0 Ur Specific [place] <= 1.005 Urine Protein Trace Urine Glucose (UA) Negative Urine Ketones Negative Urine Blood Negative Urine Nitrite Negative Ur Leukocyte Esterase Negative Assessment and Plan (1) Acute kidney injury: Status: Acute Plan Has CKD 3 at baseline JOSI due to tubular injury; Urine output good COVID 19 also can cause cytokine mediated renal injury Adequately diuresed; Volume status optimal ARB/ Diuretics on hold; No IV fluids for now Could restart low dose diuretics over weekend Shall continue to hold ARB until renal function back to baseline Shall arrange close office F/U when D/Alonzo Procedures Date of Service Date of Service: 04/24/22
[2022-04-24 11:41] VITALS: BP 131/67; PULSE 77; RESP 18; TEMP 37.2; O2SAT 95
[2022-04-24 11:47] LABS: Glucose, Whole Blood 146 mg/dL (60-115)
--- NOTE | 2022-04-24 14:08 | P.PNIM_ITS ---
Subjective Subjective Date of Service: 04/24/22 Interval History: Follow up for chf, covid 19 No breathing issues, having trouble urinating this morning no fever, cough, body aches Review of Systems Review of Systems: Yes all other systems are reviewed and are negative Constitutional Constitutional: Denies chills and Denies fever(s) Cardiovascular Cardiovascular: Denies chest pain, Denies palpitations, Denies dyspnea and Repor ts dyspnea on exertion Respiratory Respiratory: Denies cough, Denies dyspnea and Reports dyspnea on exertion Gastrointestinal Gastrointestinal: Denies abdominal pain, Denies nausea and Denies vomiting Endocrine Endocrine: Denies palpitations Physical Exam Vital Signs: Vital Signs: Last Vital Signs Temp 98.9 F 04/24/22 11:41 Pulse 77 04/24/22 11:41 Resp 18 04/24/22 11:41 BP 131/67 04/24/22 11:41 Pulse Ox 95 04/24/22 11:41 O2 Del Method 04/24/22 11:41 BMI result Body Mass Index 31.5 Appearing in no acute distress lung sounds are clear to auscultation heart regular rate rhythm, clear S1, S2 positive bowel sounds, abdomen is soft, nontender neuro patient is alert x3, no focal deficits Objective Data Active Medications Acetaminophen (Acetaminophen 325 Mg Tablet) 650 mg PO Q6H PRN PRN Reason: Pain, Mild (Pain Scale 1-3) Albuterol/Ipratropium (Albuterol/Iprat 2.5/0.5mg 3 Ml Ampul.Neb) 3 ml INHALE Q6H PRN PRN Reason: Wheezing Last Admin: 04/22/22 23:50 Dose: 3 ml Documented By: MORGAN Aspirin (Aspirin Enteric Coated 81 Mg Tablet.) 81 mg PO DAILY [facility] Last Admin: 04/24/22 08:10 Dose: 81 mg Documented By: YANE Atorvastatin Calcium (Atorvastatin Calcium 40 Mg Tablet) 40 mg PO DAILY [facility] Last Admin: 04/24/22 08:10 Dose: 40 mg Documented By: YANE Dextrose (Dextrose 50 % 25 Gm/50 Ml Syringe) 25 gm IVPUSH Q15M PRN; Protocol PRN Reason: per Hypoglycemia Standing Ord. Diltiazem HCl (Diltiazem Hcl Cd 240 Mg Cap.Er.Deg) 240 mg PO DAILY [facility]; Protocol Last Admin: 04/24/22 08:10 Dose: 240 mg Documented By: YANE Docusate Sodium (Docusate Sodium 100 Mg Capsule) 100 mg PO DAILY PRN PRN Reason: Constipation Doxazosin Mesylate (Doxazosin Mesylate 2 Mg Tablet) 2 mg PO DAILY [facility]; Protocol Last Admin: 04/24/22 08:10 Dose: 2 mg Documented By: YANE Furosemide (Furosemide 20 Mg Tablet) 20 mg PO DAILY [facility]; Protocol Last Admin: 04/24/22 08:10 Dose: 20 mg Documented By: YANE Glucose (Glucose Gel 15 Gm Gel..Gram.) 15 gm PO Q15M PRN; Protocol PRN Reason: per Hypoglycemia Standing Ord. Insulin Human Lispro (Insulin Lispro 100 Unit/Ml 3 Ml Vial) 0 unit SUBCUT QIDACHS [facility]; Protocol Last Admin: 04/24/22 11:54 Dose: Not Given Documented By: JACK Non-Admin Reason: No Insulin Coverage Lidocaine (Lidocaine 4 % Patch Adh..Patch) 1 patch TRANSDERMA DAILY PRN PRN Reason: Pain (Scale Score 1-3) Loratadine (Loratadine 10 Mg Tablet) 10 mg PO DAILY [facility] Last Admin: 04/24/22 08:10 Dose: 10 mg Documented By: YANE Metoprolol Tartrate (Metoprolol Tartrate 25 Mg Tablet) 25 mg PO BID [facility]; Protocol Last Admin: 04/24/22 08:10 Dose: 25 mg Documented By: YANE Montelukast Sodium (Montelukast Sodium 10 Mg Tablet) 10 mg PO BEDTIME [facility] Last Admin: 04/23/22 21:48 Dose: 10 mg Documented By: SARY Multivitamins/Vitamin C (Multivitamin Tablet) 1 tab PO DAILY [facility] Last Admin: 04/24/22 08:10 Dose: 1 tab Documented By: YANE Non-Formulary Medication (Buprenorphine) 1 patch TRANSDERMA SA@0900 [facility] Non-Formulary Medication (Mometasone [Asmanex Twisthaler]) 2 inhalation INHALE BID [facility] Omeprazole (Omeprazole 20 Mg Capsule.) 20 mg PO DAILY@0630 [facility] Last Admin: 04/24/22 05:48 Dose: 20 mg Documented By: SARY Ondansetron HCl (Ondansetron Hcl 4 Mg/2 Ml Vial) 4 mg IVPUSH Q8H PRN PRN Reason: Nausea and Vomiting Pharmacy Consult (Consult Rx Perform Med Rec) 1 each MISCELLANE ONCE PRN PRN Reason: Consult order Sodium Chloride (0.9 % Sodium Chloride Flush 3 Ml Syringe) 3 ml IVFLUSH QSHIFT [facility] Last Admin: 04/24/22 08:10 Dose: 3 ml Documented By: YANE Valsartan (Valsartan 320 Mg Tablet) 320 mg PO DAILY [facility]; Protocol Last Admin: 04/24/22 08:10 Dose: 320 mg Documented By: YANE Labs CBC & Chem 7: 04/22/22 07:33 04/24/22 05:51 Labs: Laboratory Results - last 24 hr 04/23/22 04/23/22 04/24/22 16:01 19:32 05:51 Anion Gap 14 Estim Creat Clear Calc 37.3 Estimated GFR 36 POC Glucose 114 170 H Random Glucose 154 H Calcium 8.4 04/24/22 04/24/22 07:48 11:44 Anion Gap Estim Creat Clear Calc Estimated GFR POC Glucose 145 H 146 H Random Glucose Calcium Microbiology Microbiology Results: Microbiology 04/21/22 10:00 Blood Culture - Preliminary Blood - Venous No growth after 48 hours. 04/21/22 09:40 Blood Culture - Preliminary Blood - Venous No growth after 48 hours. Assessment and Plan (1) COVID-19: Status: Acute (2) Acute diastolic (congestive) heart failure: Status: Acute Plan This is an 86 year old female with history of asthma, HTN, HFpEF who presents with SOB found to have heart failure and incidentally was COVID positive JOSI. Creat trending up likely from over diuresis IV lasix stopped Follow BMP nephro following Acute on chronic HFpEF. Adequately diuresed Legs look dry,Leg edema much improved IV Lasix stopped, hold for 3 days then restart if kidney function is back to baseline COVID 19 asymptomatic no hypoxia follow respiratory status urinary retention. Resolved continue cardura DM hold metformin SSI, POCs HTN Continue diltiazem, metoprolol, valsartan HLD Continue statin Chronic pain Continue Lidoderm patch, buprenorphine patch Asthma Continue home inhalers DVT ppx - lovenox code status - DNR/DNI Attending - Dr. Guzmán DISPO likely home tomorrow if renal functiom better Patient requires ongoing inpatient hospitalization for management of acute on chronic CHF requiring IV diuretics and close telemetry monitoring Quality Stroke Does the patient have a stroke diagnosis?: No VTE Prior VTE?: No VTE Risk Level:: Medical - moderate - high VTE Device Contraindication: N/A - Device Ordered VTE Drug Contraindication: N/A - Med Ordered
--- NOTE | 2022-04-24 14:19 | P.CDIC_ITS ---
CDI Concurrent Query Documentation Clarification: PHYSICIAN'S DOCUMENTATION REQUEST Date of Query: 04/24/22 1419 Patient Name: Adi Burleson Admit Date: 04/21/22 Dear Doctor, Please review the following and provide your response in the progress notes. Clinical Indicators: The diagnosis of asthma was documented in the record on 04/24/22. Additional clinical indicators from the record include: Risk Factors/Clinical Indicators/Treatments progress note 04/24/22: Asthma Continue home inhalers Based on the above, please clarify in the Progress Notes further specificity regarding the type and acuity of the asthma: Type: * Mild intermittent - less than 2x/week * Mild persistent - more than 2x/week but not daily * Moderate persistent - daily and may restrict physical activity * Severe persistent - throughout the day with frequent attacks, limiting activities * Exercise induced * Other ? please specify * Unable to determine Use of terms such as suspected, likely, concern for, or probable (associated with a specific diagnosis that is being evaluated, monitored, or treated as if it exists) are acceptable and can be coded in the inpatient setting, when documented at the time of discharge. Thank you, Lauren Doran RN Extension: [phone] Please use your independent medical judgment in providing your response. THIS QUERY IS PART OF THE PERMANENT MEDICAL RECORD Other Diagnosis: Mild interm
[2022-04-24 15:20] VITALS: BP 128/56; PULSE 76; RESP 19; TEMP 36.9; O2SAT 94
[2022-04-24 15:41] LABS: Anion Gap 19 (12-20); Blood Urea Nitrogen 48 mg/dL (9-16); Calcium 8.3 mg/dL (8.4-10.2); Carbon Dioxide 24 mmol/L (22-29); Chloride 99 mmol/L (96-108); Estimated Glomerular Filt Rate 37; Glucose Random 184 mg/dL (60-115); Potassium 4.7 mmol/L (3.3-5.1); Sodium 137 mmol/L (135-145)
[2022-04-24 16:16] LABS: Glucose, Whole Blood 174 mg/dL (60-115)
[2022-04-24] MEDS: Insulin Lispro 100 UNIT/ML 3 ML VIAL SUBCUT ×2 (17:12→21:06)
[2022-04-24 19:41] VITALS: BP 107/49; PULSE 85; RESP 17; TEMP 37.5; O2SAT 94
[2022-04-24 20:14] LABS: Glucose, Whole Blood 182 mg/dL (60-115)
[2022-04-24] MEDS: Montelukast Sodium 10 MG TABLET PO (21:06)
[2022-04-25] VITALS (8 sets, daily range): BP systolic 118–148; BP diastolic 56–70; PULSE 70–80; RESP 14–20; TEMP 36.2–36.9; O2SAT 92–95
[2022-04-25] MEDS: 0.9 % Sodium Chloride Flush 3 ML SYRINGE IVFLUSH ×3 (02:00→22:43)
[2022-04-25] MEDS: Omeprazole 20 MG CAPSULE.DR PO (05:52)
[2022-04-25 07:52] LABS: Glucose, Whole Blood 147 mg/dL (60-115)
[2022-04-25] MEDS: Doxazosin Mesylate 2 MG TABLET PO (10:13)
[2022-04-25] MEDS: dilTIAZem HCL CD 240 MG CAP.ER.DEG PO (10:13)
[2022-04-25] MEDS: Valsartan 320 MG TABLET PO (10:14)
[2022-04-25] MEDS: Loratadine 10 MG TABLET PO (10:14)
[2022-04-25] MEDS: Aspirin Enteric Coated 81 MG TABLET.DR PO (10:14)
[2022-04-25] MEDS: Multivitamin TABLET 1 TAB PO (10:14)
[2022-04-25] MEDS: Atorvastatin Calcium 40 MG TABLET PO (10:14)
[2022-04-25] MEDS: Metoprolol Tartrate 25 MG TABLET PO ×2 (10:14→22:42)
[2022-04-25 10:35] LABS: Anion Gap 21 (12-20); Blood Urea Nitrogen 55 mg/dL (9-16); Calcium 8.4 mg/dL (8.4-10.2); Carbon Dioxide 22 mmol/L (22-29); Chloride 98 mmol/L (96-108); Creatinine Clr Calc Pharmacy 32.6; Estimated Glomerular Filt Rate 31; Glucose Random 224 mg/dL (60-115); Potassium 5.2 mmol/L (3.3-5.1); Sodium 136 mmol/L (135-145)
--- NOTE | 2022-04-25 11:07 | PM.PNNEP ---
Subjective Subjective Date of Service: 04/25/22 Interval history: Events noted. All recent data reviewed. Serum creatinine/ K up Physical Exam Vital Signs: Vital Signs: Last Vital Signs Temp 97.6 F 04/25/22 08:00 Pulse 70 04/25/22 08:00 Resp 20 04/25/22 08:00 BP 126/63 04/25/22 08:00 Pulse Ox 92 04/25/22 08:00 O2 Del Method 04/25/22 08:00 BMI result Body Mass Index 31.5 Const: General: no acute distress Orientation/consciousness: patient oriented x3 Eyes: EOM: EOMs intact bilaterally Neck: Neck: Yes supple Resp: Auscultation: diminished lung sounds Cardio: Rate: regular rate GI: Palpation (GI): Soft to palpation Skin: General skin exam: no rashes or lesions noted Neuro: General: patient oriented x3 and moves all extremities Objective Data Labs CBC & Chem 7: 04/22/22 07:33 04/25/22 09:55 Labs: Laboratory Results - last 24 hr 04/24/22 04/24/22 04/24/22 11:44 15:14 16:10 Sodium 137 Potassium 4.7 Chloride 99 Carbon Dioxide 24 Anion Gap 19 BUN 48 H Creatinine 1.75 H Estim Creat Clear Calc 38.0 Estimated GFR 37 POC Glucose 146 H 174 H Random Glucose 184 H Calcium 8.3 L 04/24/22 04/25/22 04/25/22 20:10 07:47 09:55 Sodium 136 Potassium 5.2 H Chloride 98 Carbon Dioxide 22 Anion Gap 21 H BUN 55 H Creatinine 2.04 H Estim Creat Clear Calc 32.6 Estimated GFR 31 POC Glucose 182 H 147 H Random Glucose 224 H Calcium 8.4 Microbiology Microbiology Results: Microbiology 04/21/22 10:00 Blood - Venous Blood Culture - Preliminary No growth after 48 hours. 04/21/22 09:40 Blood - Venous Blood Culture - Preliminary No growth after 48 hours. Procedures Date of Service Date of Service: 04/25/22 Assessment & Plan Assessment and plan (1) Acute kidney injury: Status: Acute Assessment and Plan: Has CKD 3 at baseline JOSI due to tubular injury; Urine output good COVID 19 also can cause cytokine mediated renal injury Adequately diuresed; Volume status optimal ARB/ Diuretics put on hold; 500 mls of fluid today Renal fn AM; Shall arrange close office F/U when D/Alonzo Time Spent With Patient Time: Total time spent is greater than 50% in coordination of care (as documented) at patient's floor/unit and/or counseling patient: Progress Note: Quality Stroke Does the patient have a stroke diagnosis?: No
[2022-04-25 11:42] LABS: Glucose, Whole Blood 164 mg/dL (60-115)
[2022-04-25] MEDS: Insulin Lispro 100 UNIT/ML 3 ML VIAL SUBCUT ×2 (12:26→22:42)
[2022-04-25] MEDS: 0.9 % Sodium Chloride 500 ML 100 ML IVCONT (12:45)
--- NOTE | 2022-04-25 13:57 | MHC.CLN ---
F/U PT WITH INCREASED NUTRITION NEEDS R/T PRESSURE INJURY PO INTAKE 75-100% DIET RX: 1800DM 2GM NA-APPROPRIATE PT RECEIVING GLUCERA TID TO INCREASE KCALS AND PROMOTE WOUND HEALING SUPP TO PROVIDE 711KCALS, 30G PROTEIN MONITOR PO INTAKE CLOSELY
--- NOTE | 2022-04-25 14:30 | MHC.CM.PN ---
PER MD ROUNDS, MAY DC TODAY HOWEVER CREAT/K UP. NEPHROLOGY FOLLOWING.SPOKE WITH DAUGHTER BRIAN AND UPDATED. CM WILL CONTINUE TO FOLLOW PLAN
--- NOTE | 2022-04-25 16:17 | HO.PM.IMPN ---
Subjective Subjective Date of Service: 04/25/22 Interval History: Complaining of mild shortness of breath with ambulation otherwise offers no acute complaints of chest pain, no palpitations, no headache, no dizziness tolerating diet has been ambulating to bathroom with walker, patient uses walker at home patient is being followed for acute kidney injury and COVID-19 infection Review of Systems Review of Systems: Yes all other systems are reviewed and are negative Physical Exam Vital Signs: Vital Signs: Last Vital Signs Temp 97.9 F 04/25/22 16:00 Pulse 73 04/25/22 16:00 Resp 18 04/25/22 16:00 BP 118/56 L 04/25/22 16:00 Pulse Ox 92 04/25/22 16:00 O2 Del Method 04/25/22 16:00 BMI result Body Mass Index 31.5 Const: Other: General patient resting comfortably in no acute distress. Necks supple no JVD. CVS regular rate rhythm, Respiratory lungs clear to auscultation, no respiratory distress, no wheeze, no rhonchi. Gastrointestinal abdomen soft, nontender, bowel sounds audible, no guarding , no rigidity. Extremities no edema. Neuro nonfocal patient moving all 4 extremity speech clear. Skin no rash Psych appropriate affect Objective Data Active Medications Acetaminophen (Acetaminophen 325 Mg Tablet) 650 mg PO Q6H PRN PRN Reason: Pain, Mild (Pain Scale 1-3) Albuterol/Ipratropium (Albuterol/Iprat 2.5/0.5mg 3 Ml Ampul.Neb) 3 ml INHALE Q6H PRN PRN Reason: Wheezing Last Admin: 04/22/22 23:50 Dose: 3 ml Documented By: MORGAN Aspirin (Aspirin Enteric Coated 81 Mg Tablet.) 81 mg PO DAILY [facility] Last Admin: 04/25/22 10:14 Dose: 81 mg Documented By: LACHO Atorvastatin Calcium (Atorvastatin Calcium 40 Mg Tablet) 40 mg PO DAILY [facility] Last Admin: 04/25/22 10:14 Dose: 40 mg Documented By: LACHO Dextrose (Dextrose 50 % 25 Gm/50 Ml Syringe) 25 gm IVPUSH Q15M PRN; Protocol PRN Reason: per Hypoglycemia Standing Ord. Diltiazem HCl (Diltiazem Hcl Cd 240 Mg Cap.Er.Deg) 240 mg PO DAILY [facility]; Protocol Last Admin: 04/25/22 10:13 Dose: 240 mg Documented By: LACHO Docusate Sodium (Docusate Sodium 100 Mg Capsule) 100 mg PO DAILY PRN PRN Reason: Constipation Doxazosin Mesylate (Doxazosin Mesylate 2 Mg Tablet) 2 mg PO DAILY [facility]; Protocol Last Admin: 04/25/22 10:13 Dose: 2 mg Documented By: LACHO Glucose (Glucose Gel 15 Gm Gel..Gram.) 15 gm PO Q15M PRN; Protocol PRN Reason: per Hypoglycemia Standing Ord. Sodium Chloride (Ns) 500 mls @ 100 mls/hr IVCONT .Q5H [facility] Stop: 04/25/22 17:44 Last Admin: 04/25/22 12:45 Dose: 100 mls/hr Documented By: LACHO Insulin Human Lispro (Insulin Lispro 100 Unit/Ml 3 Ml Vial) 0 unit SUBCUT QIDACHS [facility]; Protocol Last Admin: 04/25/22 12:26 Dose: 2 unit Documented By: LACHO Lidocaine (Lidocaine 4 % Patch Adh..Patch) 1 patch TRANSDERMA DAILY PRN PRN Reason: Pain (Scale Score 1-3) Loratadine (Loratadine 10 Mg Tablet) 10 mg PO DAILY [facility] Last Admin: 04/25/22 10:14 Dose: 10 mg Documented By: LACHO Metoprolol Tartrate (Metoprolol Tartrate 25 Mg Tablet) 25 mg PO BID [facility]; Protocol Last Admin: 04/25/22 10:14 Dose: 25 mg Documented By: LACHO Montelukast Sodium (Montelukast Sodium 10 Mg Tablet) 10 mg PO BEDTIME [facility] Last Admin: 04/24/22 21:06 Dose: 10 mg Documented By: BETTE Multivitamins/Vitamin C (Multivitamin Tablet) 1 tab PO DAILY [facility] Last Admin: 04/25/22 10:14 Dose: 1 tab Documented By: LACHO Non-Formulary Medication (Buprenorphine) 1 patch TRANSDERMA SA@0900 [facility] Non-Formulary Medication (Mometasone [Asmanex Twisthaler]) 2 inhalation INHALE BID [facility] Omeprazole (Omeprazole 20 Mg Capsule.Dr) 20 mg PO DAILY@0630 [facility] Last Admin: 04/25/22 05:52 Dose: 20 mg Documented By: MORENO Ondansetron HCl (Ondansetron Hcl 4 Mg/2 Ml Vial) 4 mg IVPUSH Q8H PRN PRN Reason: Nausea and Vomiting Pharmacy Consult (Consult Rx Perform Med Rec) 1 each MISCELLANE ONCE PRN PRN Reason: Consult order Sodium Chloride (0.9 % Sodium Chloride Flush 3 Ml Syringe) 3 ml IVFLUSH QSHIFT JOSE Last Admin: 04/25/22 10:13 Dose: 3 ml Documented By: LACHO Labs CBC & Chem 7: 04/22/22 07:33 04/25/22 09:55 Labs: Laboratory Results - last 24 hr 04/24/22 04/24/22 04/25/22 16:10 20:10 07:47 Anion Gap Estim Creat Clear Calc Estimated GFR POC Glucose 174 H 182 H 147 H Random Glucose Calcium 04/25/22 04/25/22 09:55 11:36 Anion Gap 21 H Estim Creat Clear Calc 32.6 Estimated GFR 31 POC Glucose 164 H Random Glucose 224 H Calcium 8.4 Assessment and Plan (1) COVID-19: Status: Acute (2) Acute diastolic (congestive) heart failure: Status: Acute Plan This is an 86 year old female with history of asthma, HTN, HFpEF who presents with SOB found to have heart failure and incidentally was COVID positive JOSI. Creat trending up to 2.04 this morning with a potassium of 5.2 likely from over diuresis Will DC valsartan, Lasix on hold Case discussed with Nephrology will give IV fluid ,Follow BMP Acute on chronic HFpEF. Appears euvolemic continue to hold Lasix and follow BMP and clinical course Mild hyperkalemia potassium 5.2 will hold valsartan follow BMP COVID 19 asymptomatic no hypoxia follow respiratory status, encourage incentive spirometry and ambulation urinary retention. Resolved continue cardura DM hold metformin SSI, POCs HTN Continue diltiazem, and metoprolol, DC valsartan BP stable HLD Continue statin Chronic pain Continue Lidoderm patch, buprenorphine patch Chronic persistent Asthma no acute exacerbation Continue home inhalers DVT ppx - lovenox code status - DNR/DNI DISPO likely home when renal function improves Patient requires ongoing inpatient hospitalization since requiring IV fluids due to acute renal failure Quality Stroke Does the patient have a stroke diagnosis?: No VTE Prior VTE?: No VTE Risk Level:: Medical - moderate - high VTE Device Contraindication: N/A - Device Ordered VTE Drug Contraindication: N/A - Med Ordered
[2022-04-25 16:54] LABS: Glucose, Whole Blood 140 mg/dL (60-115)
[2022-04-25 21:11] LABS: Glucose, Whole Blood 177 mg/dL (60-115)
[2022-04-25] MEDS: Montelukast Sodium 10 MG TABLET PO (22:42)
[2022-04-26 03:24] VITALS: BP 128/61; PULSE 66; RESP 14; TEMP 36.1; O2SAT 91
[2022-04-26] MEDS: Omeprazole 20 MG CAPSULE.DR PO (06:18)
[2022-04-26 07:09] VITALS: BP 145/65; PULSE 70; RESP 20; TEMP 36.8; O2SAT 91
[2022-04-26 07:48] LABS: Glucose, Whole Blood 148 mg/dL (60-115)
[2022-04-26] MEDS: Loratadine 10 MG TABLET PO (08:14)
[2022-04-26] MEDS: 0.9 % Sodium Chloride Flush 3 ML SYRINGE IVFLUSH ×3 (08:14→20:40)
[2022-04-26] MEDS: Multivitamin TABLET 1 TAB PO (08:14)
[2022-04-26] MEDS: Metoprolol Tartrate 25 MG TABLET PO ×2 (08:14→20:34)
[2022-04-26] MEDS: Aspirin Enteric Coated 81 MG TABLET.DR PO (08:14)
[2022-04-26] MEDS: Atorvastatin Calcium 40 MG TABLET PO (08:14)
[2022-04-26] MEDS: dilTIAZem HCL CD 240 MG CAP.ER.DEG PO (08:14)
[2022-04-26] MEDS: Doxazosin Mesylate 2 MG TABLET PO (08:15)
[2022-04-26 08:37] LABS: Anion Gap 16 (12-20); Blood Urea Nitrogen 62 mg/dL (9-16); Calcium 8.5 mg/dL (8.4-10.2); Carbon Dioxide 25 mmol/L (22-29); Chloride 100 mmol/L (96-108); Creatinine Clr Calc Pharmacy 35.9; Estimated Glomerular Filt Rate 35; Glucose Random 153 mg/dL (60-115); Potassium 4.8 mmol/L (3.3-5.1); Sodium 136 mmol/L (135-145)
[2022-04-26 10:56] VITALS: BP 107/52; PULSE 70; RESP 18; TEMP 36.3; O2SAT 93
--- NOTE | 2022-04-26 11:01 | PM.PNNEP ---
Subjective Subjective Date of Service: 04/26/22 Interval history: Events noted. All recent data reviewed. Renal function better Physical Exam Vital Signs: Vital Signs: Last Vital Signs Temp 97.4 F 04/26/22 10:56 Pulse 70 04/26/22 10:56 Resp 18 04/26/22 10:56 BP 107/52 L 04/26/22 10:56 Pulse Ox 93 04/26/22 10:56 O2 Del Method 04/26/22 10:56 BMI result Body Mass Index 31.5 Const: General: no acute distress Orientation/consciousness: patient oriented x3 Eyes: EOM: EOMs intact bilaterally Neck: Neck: Yes supple Resp: Auscultation: diminished lung sounds Cardio: Rate: regular rate GI: Palpation (GI): Soft to palpation Neuro: General: patient oriented x3 and moves all extremities Objective Data Labs CBC & Chem 7: 04/22/22 07:33 04/26/22 08:10 Labs: Laboratory Results - last 24 hr 04/25/22 04/25/22 04/25/22 11:36 16:47 21:04 Sodium Potassium Chloride Carbon Dioxide Anion Gap BUN Creatinine Estim Creat Clear Calc Estimated GFR POC Glucose 164 H 140 H 177 H Random Glucose Calcium 04/26/22 04/26/22 07:12 08:10 Sodium 136 Potassium 4.8 Chloride 100 Carbon Dioxide 25 Anion Gap 16 BUN 62 H Creatinine 1.85 H Estim Creat Clear Calc 35.9 Estimated GFR 35 POC Glucose 148 H Random Glucose 153 H Calcium 8.5 Microbiology Microbiology Results: Microbiology 04/21/22 10:00 Blood - Venous Blood Culture - Preliminary No growth after 48 hours. 04/21/22 09:40 Blood - Venous Blood Culture - Preliminary No growth after 48 hours. Procedures Date of Service Date of Service: 04/26/22 Assessment & Plan Assessment and plan (1) Acute kidney injury: Status: Acute Assessment and Plan: Has CKD 3 at baseline JOSI due to tubular injury; Urine output good COVID 19 also can cause cytokine mediated renal injury Adequately diuresed; Volume status optimal ARB/ Diuretics- Continue to hold for now Shall arrange close office F/U when D/Alonzo Time Spent With Patient Time: Total time spent is greater than 50% in coordination of care (as documented) at patient's floor/unit and/or counseling patient: Progress Note: Quality Stroke Does the patient have a stroke diagnosis?: No
[2022-04-26 11:24] LABS: Glucose, Whole Blood 217 mg/dL (60-115)
--- NOTE | 2022-04-26 14:16 | P.PNIM_ITS ---
Subjective Subjective Date of Service: 04/26/22 Interval History: Patient complaining of deconditioning shortness of breath with activity has been mostly in bed attempted to walk patient oxygenation dropped to 70s with ambulation therefore will place him on oxygen, patient denies chest pain, no shortness of breath at rest, no headache, no dizziness, no fevers no chills no other acute issues overnight, tolerating diet with no nausea vomiting. Review of Systems Review of Systems: Yes all other systems are reviewed and are negative Physical Exam Vital Signs: Vital Signs: Last Vital Signs Temp 97.4 F 04/26/22 10:56 Pulse 70 04/26/22 10:56 Resp 18 04/26/22 10:56 BP 107/52 L 04/26/22 10:56 Pulse Ox 93 04/26/22 10:56 O2 Del Method 04/26/22 10:56 BMI result Body Mass Index 31.5 Const: Other: General patient resting comfortably in no acute distress.? Necks supple no JVD. CVS? regular rate rhythm, Respiratory lungs clear to auscultation, no respiratory distress, no wheeze, no rhonchi, no rales. Gastrointestinal abdomen soft, nontender, bowel sounds audible, no guarding , no rigidity. Extremities no? edema. Neuro nonfocal patient moving all 4 extremity speech clear. Skin no rash Psych appropriate affect Objective Data Active Medications Acetaminophen (Acetaminophen 325 Mg Tablet) 650 mg PO Q6H PRN PRN Reason: Pain, Mild (Pain Scale 1-3) Albuterol/Ipratropium (Albuterol/Iprat 2.5/0.5mg 3 Ml Ampul.Neb) 3 ml INHALE Q6H PRN PRN Reason: Wheezing Last Admin: 04/22/22 23:50 Dose: 3 ml Documented By: MORGAN Aspirin (Aspirin Enteric Coated 81 Mg Tablet.) 81 mg PO DAILY [facility] Last Admin: 04/26/22 08:14 Dose: 81 mg Documented By: LACHO Atorvastatin Calcium (Atorvastatin Calcium 40 Mg Tablet) 40 mg PO DAILY [facility] Last Admin: 04/26/22 08:14 Dose: 40 mg Documented By: LACHO Dextrose (Dextrose 50 % 25 Gm/50 Ml Syringe) 25 gm IVPUSH Q15M PRN; Protocol PRN Reason: per Hypoglycemia Standing Ord. Diltiazem HCl (Diltiazem Hcl Cd 240 Mg Cap.Er.Deg) 240 mg PO DAILY [facility]; Protocol Last Admin: 04/26/22 08:14 Dose: 240 mg Documented By: LACHO Docusate Sodium (Docusate Sodium 100 Mg Capsule) 100 mg PO DAILY PRN PRN Reason: Constipation Doxazosin Mesylate (Doxazosin Mesylate 2 Mg Tablet) 2 mg PO DAILY [facility]; Protocol Last Admin: 04/26/22 08:15 Dose: 2 mg Documented By: LACHO Glucose (Glucose Gel 15 Gm Gel..Gram.) 15 gm PO Q15M PRN; Protocol PRN Reason: per Hypoglycemia Standing Ord. Insulin Human Lispro (Insulin Lispro 100 Unit/Ml 3 Ml Vial) 0 unit SUBCUT QIDACHS [facility]; Protocol Last Admin: 04/26/22 12:20 Dose: Not Given Documented By: LACHO Non-Admin Reason: No Insulin Coverage Lidocaine (Lidocaine 4 % Patch Adh..Patch) 1 patch TRANSDERMA DAILY PRN PRN Reason: Pain (Scale Score 1-3) Loratadine (Loratadine 10 Mg Tablet) 10 mg PO DAILY [facility] Last Admin: 04/26/22 08:14 Dose: 10 mg Documented By: LACHO Metoprolol Tartrate (Metoprolol Tartrate 25 Mg Tablet) 25 mg PO BID [facility]; Protocol Last Admin: 04/26/22 08:14 Dose: 25 mg Documented By: LACHO Montelukast Sodium (Montelukast Sodium 10 Mg Tablet) 10 mg PO BEDTIME [facility] Last Admin: 04/25/22 22:42 Dose: 10 mg Documented By: MAIN Multivitamins/Vitamin C (Multivitamin Tablet) 1 tab PO DAILY [facility] Last Admin: 04/26/22 08:14 Dose: 1 tab Documented By: LACHO Non-Formulary Medication (Buprenorphine) 1 patch TRANSDERMA SA@0900 [facility] Non-Formulary Medication (Mometasone [Asmanex Twisthaler]) 2 inhalation INHALE BID [facility] Omeprazole (Omeprazole 20 Mg Capsule.Dr) 20 mg PO DAILY@0630 [facility] Last Admin: 04/26/22 06:18 Dose: 20 mg Documented By: MAIN Ondansetron HCl (Ondansetron Hcl 4 Mg/2 Ml Vial) 4 mg IVPUSH Q8H PRN PRN Reason: Nausea and Vomiting Pharmacy Consult (Consult Rx Perform Med Rec) 1 each MISCELLANE ONCE PRN PRN Reason: Consult order Sodium Chloride (0.9 % Sodium Chloride Flush 3 Ml Syringe) 3 ml IVFLUSH QSHIFT [facility] Last Admin: 04/26/22 08:14 Dose: 3 ml Documented By: CTORRZ Labs CBC & Chem 7: 04/22/22 07:33 04/26/22 08:10 Labs: Laboratory Results - last 24 hr 04/25/22 04/25/22 04/26/22 16:47 21:04 07:12 Anion Gap Estim Creat Clear Calc Estimated GFR POC Glucose 140 H 177 H 148 H Random Glucose Calcium 04/26/22 04/26/22 08:10 10:58 Anion Gap 16 Estim Creat Clear Calc 35.9 Estimated GFR 35 POC Glucose 217 H Random Glucose 153 H Calcium 8.5 Microbiology Microbiology Results: Microbiology 04/21/22 10:00 Blood Culture - Final Blood - Venous No growth after 5 days. 04/21/22 09:40 Blood Culture - Final Blood - Venous No growth after 5 days. Assessment and Plan (1) COVID-19: Status: Acute (2) Acute diastolic (congestive) heart failure: Status: Acute Plan This is an 86 year old female with history of asthma, HTN, HFpEF who presents with SOB found to have heart failure and incidentally was COVID positive JOSI. Creat improved from 2.04 to 1.85 today likely from over diuresis , will continue to hold valsartan and Lasix Seen by Nephrology they recommend to hold above medications for 1 week and outpatient follow-up with them will follow BMP Acute on chronic HFpEF. Appears euvolemic continue to hold Lasix Mild hyperkalemia potassium improved to 4.8 continue to hold valsartan Acute hypoxic respiratory failure due to COVID 19 History of mild intermittent asthma no acute exacerbation Patient noted to have hypoxia with ambulation, denies cough no shortness of breath at rest no chest pain, no fevers no chills Likely due to deconditioning will repeat chest x-ray, placed on O2 encourage incentive spirometry, cough medication as needed no hypoxia follow respiratory status, continue home inhalers placed on Breo in place of Asmanex and use as needed DuoNeb in place of Combivent Obtain PT consult for deconditioning we urinary retention. Resolved continue cardura DM hold metformin SSI, POCs HTN Continue diltiazem, and metoprolol, DC valsartan BP stable HLD Continue statin Chronic pain Continue Lidoderm patch, buprenorphine patch Chronic persistent Asthma no acute exacerbation Continue home inhalers DVT ppx - lovenox code status - DNR/DNI DISPO await PT input Patient requires ongoing inpatient hospitalization due to hypoxia with ambulation and acute renal failure Quality Stroke Does the patient have a stroke diagnosis?: No VTE Prior VTE?: No VTE Risk Level:: Medical - moderate - high VTE Device Contraindication: N/A - Device Ordered VTE Drug Contraindication: N/A - Med Ordered
[2022-04-26 15:53] VITALS: BP 145/58; PULSE 77; RESP 20; TEMP 36.7
[2022-04-26 16:22] LABS: Glucose, Whole Blood 181 mg/dL (60-115)
[2022-04-26] MEDS: Insulin Lispro 100 UNIT/ML 3 ML VIAL SUBCUT ×2 (16:38→20:34)
[2022-04-26 19:21] VITALS: BP 146/56; PULSE 86; RESP 19; TEMP 36.1
[2022-04-26 19:47] LABS: Glucose, Whole Blood 220 mg/dL (60-115)
[2022-04-26] MEDS: Montelukast Sodium 10 MG TABLET PO (20:34)
[2022-04-27] VITALS (7 sets, daily range): BP systolic 112–157; BP diastolic 53–64; PULSE 69–91; RESP 15–20; TEMP 36.2–36.8; O2SAT 93–99
[2022-04-27] MEDS: Omeprazole 20 MG CAPSULE.DR PO (06:21)
[2022-04-27 07:07] LABS: Hematocrit 26.6 % (42.0-52.0); Hemoglobin 8.8 g/dl (14.0-18.0); Mean Corpuscular HGB Conc 33.1 g/dl (31.0-36.0); Mean Corpuscular Hemoglobin 30.6 pg (27.0-33.0); Mean Corpuscular Volume 92.4 fL (80.0-98.0); Mean Platelet Volume 9.5 fL (9.4-12.4); Platelet Count 367 X10*3/uL (160-400); Red Blood Count 2.88 X10*6/uL (4.60-5.80); Red Cell Distribution Width 14.2 % (11.0-16.0)
[2022-04-27 07:23] LABS: Anion Gap 15 (12-20); Blood Urea Nitrogen 63 mg/dL (9-16); Calcium 8.6 mg/dL (8.4-10.2); Carbon Dioxide 26 mmol/L (22-29); Chloride 101 mmol/L (96-108); Creatinine Clr Calc Pharmacy 37.1; Estimated Glomerular Filt Rate 36; Glucose Random 151 mg/dL (60-115); Potassium 5.1 mmol/L (3.3-5.1); Sodium 137 mmol/L (135-145)
[2022-04-27] MEDS: Atorvastatin Calcium 40 MG TABLET PO (08:00)
[2022-04-27] MEDS: Aspirin Enteric Coated 81 MG TABLET.DR PO (08:00)
[2022-04-27] MEDS: Metoprolol Tartrate 25 MG TABLET PO ×2 (08:00→22:16)
[2022-04-27] MEDS: dilTIAZem HCL CD 240 MG CAP.ER.DEG PO (08:00)
[2022-04-27] MEDS: Loratadine 10 MG TABLET PO (08:00)
[2022-04-27] MEDS: 0.9 % Sodium Chloride Flush 3 ML SYRINGE IVFLUSH ×3 (08:01→22:16)
[2022-04-27] MEDS: Multivitamin TABLET 1 TAB PO (08:01)
[2022-04-27 08:09] LABS: Glucose, Whole Blood 158 mg/dL (60-115)
[2022-04-27] MEDS: Insulin Lispro 100 UNIT/ML 3 ML VIAL SUBCUT ×4 (08:23→22:15)
[2022-04-27] MEDS: Doxazosin Mesylate 2 MG TABLET PO (08:24)
--- NOTE | 2022-04-27 09:50 | PM.PNNEP ---
Subjective Subjective Date of Service: 04/27/22 Interval history: stable overnight Physical Exam Vital Signs: Vital Signs: Last Vital Signs Temp 97.7 F 04/27/22 07:47 Pulse 85 04/27/22 07:47 Resp 20 04/27/22 07:47 BP 157/64 H 04/27/22 07:47 Pulse Ox 93 04/27/22 07:47 O2 Del Method 04/27/22 07:47 O2 Flow Rate 3 04/27/22 07:47 FiO2 93 04/26/22 19:21 BMI result Body Mass Index 31.5 Const: Other: General patient resting comfortably in no acute distress.? Necks supple no JVD. CVS? regular rate rhythm, Respiratory lungs clear to auscultation, no respiratory distress, no wheeze, no rhonchi, no rales. Gastrointestinal abdomen soft, nontender, bowel sounds audible, no guarding , no rigidity. Extremities no? edema. Neuro nonfocal patient moving all 4 extremity speech clear. Skin no rash Psych appropriate affect General: cooperative, comfortable, no acute distress, alert and awake Nutritional Appearance: overweight Orientation/consciousness: patient oriented x3 Eyes: EOM: EOMs intact bilaterally Neck: Neck: Yes supple Resp: Other: crackles right base Effort & Inspection: normal respiratory effort and able to speak in complete sentences Auscultation: diminished lung sounds Cardio: Rate: regular rate Heart sounds: S1 normal heart sound present and S2 normal heart sound present GI: Inspection: No distended Palpation (GI): Soft to palpation and nontender Skin: Other: chronic venous stasis changes b/l lower extremities General skin exam: no rashes or lesions noted Neuro: General: patient oriented x3, moves all extremities and CN's II-XI intact bilaterally Extrem: Other: trace edema b/l LE, improving Objective Data Labs CBC & Chem 7: 04/27/22 06:46 04/27/22 06:46 Labs: Laboratory Results - last 24 hr 04/26/22 04/26/22 04/26/22 10:58 16:17 19:41 WBC RBC Hgb Hct MCV MCH MCHC RDW Plt Count MPV Absolute Nucleated RBC Nucleated RBC % (auto) Sodium Potassium Chloride Carbon Dioxide Anion Gap BUN Creatinine Estim Creat Clear Calc Estimated GFR POC Glucose 217 H 181 H 220 H Random Glucose Calcium 04/27/22 04/27/22 04/27/22 06:46 06:46 07:45 WBC 11.0 H RBC 2.88 L Hgb 8.8 L Hct 26.6 L MCV 92.4 MCH 30.6 MCHC 33.1 RDW 14.2 Plt Count 367 MPV 9.5 Absolute Nucleated RBC 0.000 Nucleated RBC % (auto) 0.0 Sodium 137 Potassium 5.1 Chloride 101 Carbon Dioxide 26 Anion Gap 15 BUN 63 H Creatinine 1.79 H Estim Creat Clear Calc 37.1 Estimated GFR 36 POC Glucose 158 H Random Glucose 151 H Calcium 8.6 Microbiology Microbiology Results: Microbiology 04/21/22 10:00 Blood - Venous Blood Culture - Final No growth after 5 days. 04/21/22 09:40 Blood - Venous Blood Culture - Final No growth after 5 days. Procedures Date of Service Date of Service: 04/27/22 Assessment & Plan Assessment and plan (1) COVID-19: Status: Acute (2) Acute diastolic (congestive) heart failure: Status: Acute Plan This is an 86 year old female with history of asthma, HTN, HFpEF who presents with SOB found to have heart failure and incidentally was COVID positive JOSI. Creat improved from 2.04 to 1.79 today likely from over diuresis , will continue to hold valsartan and Lasix Acute on chronic HFpEF. Appears euvolemic continue to hold Lasix Mild hyperkalemia potassium improved to 4.8 continue to hold valsartan Time Spent With Patient Time: Total time spent is greater than 50% in coordination of care (as documented) at patient's floor/unit and/or counseling patient: Progress Note: Quality Stroke Does the patient have a stroke diagnosis?: No
[2022-04-27 11:28] LABS: Glucose, Whole Blood 159 mg/dL (60-115)
[2022-04-27] MEDS: methylPREDNISolone Sod Succ 40 MG/ML VIAL IVPUSH ×2 (11:57→22:16)
[2022-04-27] MEDS: Docusate Sodium 100 MG CAPSULE PO (12:03)
--- NOTE | 2022-04-27 13:54 | MHC.CM.PN ---
Addendum entered by Naomie Lamas 04/27/22 15:02: DC is on hold today. MD has ordered a V+Q scan. The patients need for supplemental oxygen has increased. The MD will rule out a PE prior to discharge. Notified of delay in discharge: RN, [facility] and [facility]. Patient is a will call scheduled for 12pm tomorrow. Original Note: IMM 04/27/22 Male 86 Covid+ PT eval qualified patient for STR. Preferences were obtained and referrals sent. A bed offer has been received from [facility]. Patient accepts the bed. Transportation is booked for 3:30pm with [facility].
--- NOTE | 2022-04-27 14:11 | P.PNIM_ITS ---
Subjective Subjective Date of Service: 04/27/22 Interval History: Complaining of persistent shortness of breath worse with activity requiring 3 L of nasal cannula with finger oximetry 96% at rest, denies chest pain, no palpitations, no headache, no dizziness no acute overnight events no nausea no vomiting tolerating diet Review of Systems COOKEE no headache no dizziness CVS no chest pain, no palpitation no urgency no frequency Review of Systems: Yes all other systems are reviewed and are negative Physical Exam Vital Signs: Vital Signs: Last Vital Signs Temp 97.9 F 04/27/22 11:27 Pulse 71 04/27/22 11:27 Resp 18 04/27/22 11:27 BP 147/54 H 04/27/22 11:27 Pulse Ox 96 04/27/22 11:27 O2 Del Method 04/27/22 11:27 O2 Flow Rate 3 04/27/22 11:27 FiO2 93 04/26/22 19:21 BMI result Body Mass Index 31.5 Const: Other: General patient resting comfortably in no acute distress.? Necks supple no JVD. CVS? regular rate rhythm, Respiratory lungs clear to auscultation,diminished no respiratory distress, no wheeze, no rhonchi, no rales. Gastrointestinal abdomen soft, nontender, bowel sounds audible, no guarding , no rigidity. Extremities no? edema. Neuro nonfocal patient moving all 4 extremity speech clear. Skin no rash Psych appropriate affect Objective Data Active Medications Acetaminophen (Acetaminophen 325 Mg Tablet) 650 mg PO Q6H PRN PRN Reason: Pain, Mild (Pain Scale 1-3) Albuterol/Ipratropium (Albuterol/Iprat 2.5/0.5mg 3 Ml Ampul.Neb) 3 ml INHALE Q6H PRN PRN Reason: Wheezing Last Admin: 04/22/22 23:50 Dose: 3 ml Documented By: MORGAN Aspirin (Aspirin Enteric Coated 81 Mg Tablet.) 81 mg PO DAILY [facility] Last Admin: 04/27/22 08:00 Dose: 81 mg Documented By: LACHO Atorvastatin Calcium (Atorvastatin Calcium 40 Mg Tablet) 40 mg PO DAILY [facility] Last Admin: 04/27/22 08:00 Dose: 40 mg Documented By: LACHO Dextrose (Dextrose 50 % 25 Gm/50 Ml Syringe) 25 gm IVPUSH Q15M PRN; Protocol PRN Reason: per Hypoglycemia Standing Ord. Diltiazem HCl (Diltiazem Hcl Cd 240 Mg Cap.Er.Deg) 240 mg PO DAILY [facility]; Protocol Last Admin: 04/27/22 08:00 Dose: 240 mg Documented By: LACHO Docusate Sodium (Docusate Sodium 100 Mg Capsule) 100 mg PO DAILY PRN PRN Reason: Constipation Last Admin: 04/27/22 12:03 Dose: 100 mg Documented By: LACHO Doxazosin Mesylate (Doxazosin Mesylate 2 Mg Tablet) 2 mg PO DAILY [facility]; Protocol Last Admin: 04/27/22 08:24 Dose: 2 mg Documented By: LACHO Epoetin Cr 2,000 unit/ (Epoetin Cr 3,000 unit) 5,000 unit SUBCUT ONCE ONE Stop: 04/27/22 14:09 Fluticasone/Vilanterol (Fluticasone/Vilanterol 100/25 Blst.W.Dev) 1 puff INHALE RDAILY [facility] Last Admin: 04/27/22 07:53 Dose: Not Given Documented By: ISACC Non-Admin Reason: Med Not Available Glucose (Glucose Gel 15 Gm Gel..Gram.) 15 gm PO Q15M PRN; Protocol PRN Reason: per Hypoglycemia Standing Ord. Insulin Human Lispro (Insulin Lispro 100 Unit/Ml 3 Ml Vial) 0 unit SUBCUT QIDACHS [facility]; Protocol Last Admin: 04/27/22 11:57 Dose: 2 unit Documented By: LACHO Lidocaine (Lidocaine 4 % Patch Adh..Patch) 1 patch TRANSDERMA DAILY PRN PRN Reason: Pain (Scale Score 1-3) Loratadine (Loratadine 10 Mg Tablet) 10 mg PO DAILY [facility] Last Admin: 04/27/22 08:00 Dose: 10 mg Documented By: LACHO Methylprednisolone Sodium Succinate (Methylprednisolone Sod Succ 40 Mg/Ml Vial) 40 mg IVPUSH Q12H [facility] Last Admin: 04/27/22 11:57 Dose: 40 mg Documented By: LACHO Metoprolol Tartrate (Metoprolol Tartrate 25 Mg Tablet) 25 mg PO BID [facility]; Protocol Last Admin: 04/27/22 08:00 Dose: 25 mg Documented By: LACHO Montelukast Sodium (Montelukast Sodium 10 Mg Tablet) 10 mg PO BEDTIME [facility] Last Admin: 04/26/22 20:34 Dose: 10 mg Documented By: MAIN Multivitamins/Vitamin C (Multivitamin Tablet) 1 tab PO DAILY [facility] Last Admin: 04/27/22 08:01 Dose: 1 tab Documented By: LACHO Non-Formulary Medication (Buprenorphine) 1 patch TRANSDERMA SA@0900 [facility] Non-Formulary Medication (Mometasone [Asmanex Twisthaler]) 2 inhalation INHALE BID [facility] Omeprazole (Omeprazole 20 Mg Capsule.Dr) 20 mg PO DAILY@0630 [facility] Last Admin: 04/27/22 06:21 Dose: 20 mg Documented By: MAIN Ondansetron HCl (Ondansetron Hcl 4 Mg/2 Ml Vial) 4 mg IVPUSH Q8H PRN PRN Reason: Nausea and Vomiting Pharmacy Consult (Consult Rx Perform Med Rec) 1 each MISCELLANE ONCE PRN PRN Reason: Consult order Sodium Chloride (0.9 % Sodium Chloride Flush 3 Ml Syringe) 3 ml IVFLUSH QSHIFT [facility] Last Admin: 04/27/22 08:01 Dose: 3 ml Documented By: LACHO Labs CBC & Chem 7: 04/27/22 06:46 04/27/22 06:46 Labs: Laboratory Results - last 24 hr 04/26/22 04/26/22 04/27/22 16:17 19:41 06:46 MCV 92.4 MCH 30.6 MCHC 33.1 RDW 14.2 Plt Count 367 MPV 9.5 Absolute Nucleated RBC 0.000 Nucleated RBC % (auto) 0.0 Anion Gap Estim Creat Clear Calc Estimated GFR POC Glucose 181 H 220 H Random Glucose Calcium 04/27/22 04/27/22 04/27/22 06:46 07:45 11:23 MCV MCH MCHC RDW Plt Count MPV Absolute Nucleated RBC Nucleated RBC % (auto) Anion Gap 15 Estim Creat Clear Calc 37.1 Estimated GFR 36 POC Glucose 158 H 159 H Random Glucose 151 H Calcium 8.6 Microbiology Microbiology Results: Microbiology 04/21/22 10:00 Blood Culture - Final Blood - Venous No growth after 5 days. 04/21/22 09:40 Blood Culture - Final Blood - Venous No growth after 5 days. Assessment and Plan (1) COVID-19: Status: Acute (2) Acute diastolic (congestive) heart failure: Status: Acute Plan This is an 86 year old female with history of asthma, HTN, HFpEF who presents with SOB found to have heart failure and incidentally was COVID positive JOSI. Creat improving slowly but from 2.04 to 1.79 today , is status post 500 mL of IV fluid likely from over diuresis , will continue to hold valsartan and Lasix Seen by Nephrology they recommend to hold above medications for 1 week and outpatient follow-up with them will follow BMP Acute on chronic HFpEF. Appears euvolemic continue to hold Lasix Mild hyperkalemia potassium improved to 4.8 continue to hold valsartan Acute hypoxic respiratory failure due to COVID 19 Repeat chest x-ray from 04/26 showed moderate right and small left pleural effusion with patchy bibasilar airspace opacities differential include atelectasis aspiration or infection,, patient has chronic effusions Patient has no fevers, no cough, mild leukocytosis ,, History of mild intermittent asthma no acute exacerbation Question related to COVID infection, due to anemia, rule out PE obtain a CTA chest avoid CTA due to acute renal disease Continue O2 support added IV steroids and iv antibiotics follow respiratory status, continue home inhalers placed on Breo in place of Asmanex and use as needed DuoNeb in place of Combivent Obtain PT consult for deconditioning Acute on chronic normocytic anemia Hematocrit dropped to 26.6 from 30.8 no GI bleed noted no hematemesis no melena question due to JOSI and acute infection will give 1 dose of Procrit check stool guaiac check iron studies follow CBC urinary retention. Resolved continue cardura DM hold metformin, stable blood sugars SSI, POCs HTN Continue diltiazem, and metoprolol, fluctuating blood pressureif blood pressure allows will resume will valsartan HLD Continue statin Chronic pain Continue Lidoderm patch, buprenorphine patch Chronic persistent Asthma no acute exacerbation Continue home inhalers DVT ppx - lovenox code status - DNR/DNI DISPO PT recommend short-term rehab Patient requires ongoing inpatient hospitalization due to hypoxia with ambulation and acute renal failure Quality Stroke Does the patient have a stroke diagnosis?: No VTE Prior VTE?: No VTE Risk Level:: Medical - moderate - high VTE Device Contraindication: N/A - Device Ordered VTE Drug Contraindication: N/A - Med Ordered
--- NOTE | 2022-04-27 14:27 | MHC.CLN ---
F/U PO INTAKE 75-100% DIET RX: 1800DM 2GM NA-APPROPRIATE PT RECEIVING GLUCERA TID TO INCREASE KCALS AND PROMOTE WOUND HEALING SUPP TO PROVIDE 711KCALS, 30G PROTEIN MONITOR PO INTAKE CLOSELY
[2022-04-27 16:48] LABS: Glucose, Whole Blood 258 mg/dL (60-115)
[2022-04-27] MEDS: Doxycycline Hyclate 100 MG in 0.9 % Sodium Chloride 250 ML 166.67 MG IV (17:20)
[2022-04-27 21:48] LABS: Glucose, Whole Blood 300 mg/dL (60-115)
[2022-04-27] MEDS: Montelukast Sodium 10 MG TABLET PO (22:17)
[2022-04-28] MEDS: Doxycycline Hyclate 100 MG in 0.9 % Sodium Chloride 250 ML 166.67 MG IV (02:08)
[2022-04-28 04:00] VITALS: BP 155/68; PULSE 84; RESP 21; TEMP 36.5; O2SAT 95
[2022-04-28] MEDS: Omeprazole 20 MG CAPSULE.DR PO (05:41)
[2022-04-28 07:24] VITALS: BP 150/63; PULSE 77; RESP 20; TEMP 36.6; O2SAT 93
[2022-04-28 07:31] LABS: Hematocrit 27.2 % (42.0-52.0); Mean Corpuscular HGB Conc 33.1 g/dl (31.0-36.0); Mean Corpuscular Hemoglobin 30.9 pg (27.0-33.0); Mean Corpuscular Volume 93.5 fL (80.0-98.0); Mean Platelet Volume 9.6 fL (9.4-12.4); Platelet Count 383 X10*3/uL (160-400); Red Blood Count 2.91 X10*6/uL (4.60-5.80); Red Cell Distribution Width 13.9 % (11.0-16.0); White Blood Count 16.8 X10*3/uL (4.8-10.8)
[2022-04-28 07:47] LABS: Anion Gap 16 (12-20); Blood Urea Nitrogen 67 mg/dL (9-16); Calcium 8.9 mg/dL (8.4-10.2); Carbon Dioxide 24 mmol/L (22-29); Chloride 103 mmol/L (96-108); Creatinine Clr Calc Pharmacy 39.6; Estimated Glomerular Filt Rate 39; Glucose Random 225 mg/dL (60-115); Iron 26 mcg/dL (45-160); Percent Iron Saturation 11 % (15-50); Potassium 5.2 mmol/L (3.3-5.1); Sodium 138 mmol/L (135-145); Total Iron Binding Capacity 227 mcg/dL (228-428); Unsaturated Iron Binding 201 ug/dL
[2022-04-28 07:52] LABS: Glucose, Whole Blood 210 mg/dL (60-115)
--- NOTE | 2022-04-28 08:35 | P.PNNP_ITS ---
Subjective Subjective Date of Service: 04/28/22 Interval history: stable overnight VSS Physical Exam Vital Signs: Vital Signs: Last Vital Signs Temp 97.8 F 04/28/22 07:24 Pulse 77 04/28/22 07:24 Resp 20 04/28/22 07:24 BP 150/63 H 04/28/22 07:24 Pulse Ox 93 04/28/22 07:24 O2 Del Method 04/28/22 07:24 O2 Flow Rate 4 04/28/22 07:24 FiO2 93 04/26/22 19:21 BMI result Body Mass Index 31.5 Const: Other: General patient resting comfortably in no acute distress.? Necks supple no JVD. CVS? regular rate rhythm, Respiratory lungs clear to auscultation,diminished no respiratory distress, no wheeze, no rhonchi, no rales. Gastrointestinal abdomen soft, nontender, bowel sounds audible, no guarding , no rigidity. Extremities no? edema. Neuro nonfocal patient moving all 4 extremity speech clear. Skin no rash Psych appropriate affect General: cooperative, comfortable, no acute distress, alert and awake Nutritional Appearance: overweight Orientation/con sciousness: patient oriented x3 Eyes: EOM: EOMs intact bilaterally Neck: Neck: Yes supple Resp: Other: crackles right base Effort & Inspection: normal respiratory effort and able to speak in complete sentences Auscultation: diminished lung sounds Cardio: Rate: regular rate Heart sounds: S1 normal heart sound present and S2 normal heart sound present GI: Inspection: No distended Palpation (GI): Soft to palpation and nontender Skin: Other: chronic venous stasis changes b/l lower extremities General skin exam: no rashes or lesions noted Neuro: General: patient oriented x3, moves all extremities and CN's II-XI intact bilaterally Extrem: Other: trace edema b/l LE, improving Objective Data Labs CBC & Chem 7: 04/28/22 06:39 04/28/22 06:39 Labs: Laboratory Results - last 24 hr 04/27/22 04/27/22 04/27/22 11:23 16:42 21:41 WBC RBC Hgb Hct MCV MCH MCHC RDW Plt Count MPV Absolute Nucleated RBC Nucleated RBC % (auto) Sodium Potassium Chloride Carbon Dioxide Anion Gap BUN Creatinine Estim Creat Clear Calc Estimated GFR POC Glucose 159 H 258 H 300 H Random Glucose Calcium Iron TIBC % Saturation Unsat Iron Binding 04/28/22 04/28/22 04/28/22 06:39 06:39 07:28 WBC 16.8 H RBC 2.91 L Hgb 9.0 L Hct 27.2 L MCV 93.5 MCH 30.9 MCHC 33.1 RDW 13.9 Plt Count 383 MPV 9.6 Absolute Nucleated RBC 0.000 Nucleated RBC % (auto) 0.0 Sodium 138 Potassium 5.2 H Chloride 103 Carbon Dioxide 24 Anion Gap 16 BUN 67 H Creatinine 1.68 H Estim Creat Clear Calc 39.6 Estimated GFR 39 POC Glucose 210 H Random Glucose 225 H D Calcium 8.9 Iron 26 L TIBC 227 L % Saturation 11 L Unsat Iron Binding 201 Microbiology Microbiology Results: Microbiology 04/21/22 10:00 Blood - Venous Blood Culture - Final No growth after 5 days. 04/21/22 09:40 Blood - Venous Blood Culture - Final No growth after 5 days. Procedures Date of Service Date of Service: 04/28/22 Assessment & Plan Assessment and plan (1) COVID-19: Status: Acute (2) Acute diastolic (congestive) heart failure: Status: Acute Plan This is an 86 year old female with history of asthma, HTN, HFpEF who presents with SOB found to have heart failure and incidentally was COVID positive JOSI. Creat improving slowly but from 2.04 to 1.68 today , is status post 500 mL of IV fluid likely from over diuresis , will continue to hold valsartan and Lasix Acute on chronic HFpEF. Appears euvolemic continue to hold Lasix Mild hyperkalemia potassium improved to 4.8 continue to hold valsartan Progress Note: Quality Stroke Does the patient have a stroke diagnosis?: No
[2022-04-28] MEDS: dilTIAZem HCL CD 240 MG CAP.ER.DEG PO (09:15)
[2022-04-28] MEDS: Atorvastatin Calcium 40 MG TABLET PO (09:15)
[2022-04-28] MEDS: Aspirin Enteric Coated 81 MG TABLET.DR PO (09:16)
[2022-04-28] MEDS: Doxazosin Mesylate 2 MG TABLET PO (09:16)
[2022-04-28] MEDS: Metoprolol Tartrate 25 MG TABLET PO (09:16)
[2022-04-28] MEDS: Enoxaparin Sodium 40 MG/0.4 ML SYRINGE SUBCUT (09:16)
[2022-04-28] MEDS: Multivitamin TABLET 1 TAB PO (09:16)
[2022-04-28] MEDS: Insulin Lispro 100 UNIT/ML 3 ML VIAL SUBCUT ×3 (09:16→16:57)
[2022-04-28] MEDS: 0.9 % Sodium Chloride Flush 3 ML SYRINGE IVFLUSH (09:17)
[2022-04-28] MEDS: Loratadine 10 MG TABLET PO (10:35)
[2022-04-28] MEDS: methylPREDNISolone Sod Succ 40 MG/ML VIAL IVPUSH (10:35)
[2022-04-28 11:18] VITALS: BP 124/51; PULSE 72; RESP 18; TEMP 36.6; O2SAT 96
[2022-04-28 11:29] LABS: Glucose, Whole Blood 224 mg/dL (60-115)
[2022-04-28] MEDS: Doxycycline Hyclate 100 MG in 0.9 % Sodium Chloride 250 ML 166.7 MG IV (13:38)
--- NOTE | 2022-04-28 14:15 | PM.DS ---
DS: Providers Provider Date of Service: 04/28/22 Date of admission: 04/21/22 12:41 Primary care physician: Adi Champagne MD Consults: 04/24/22 08:43 Consult to Nephrology Routine Consulting Provider: Reed Swann Reason for consultation: josi Has provider been notified: No DS: Diagnosis Discharge Diagnosis (1) COVID-19: Status: Acute (2) Acute diastolic (congestive) heart failure: Status: Acute DS: Summary Hospital Course Hospital Course: History of presenting illness Date of Service: 04/21/22 Chief Complaint: Shortness of breath This is an 86-year-old male with history of heart failure, asthma, hypertension who presents to the emergency department with shortness of breath.? He describes 4 days of progressively worsening dyspnea on exertion.? He gets short of breath even when walking to the bathroom.? He sleeps in a recliner at baseline so has not noticed any orthopnea or PND.? He reports increase in his lower extremity swelling and a weight gain of 5 lb over the past 2 days.? He reports being compliant with his Lasix and low-salt diet.? He denies any associated chest pain or palpitations.? In the emergency department BNP was normal, chest x-ray showed small right pleural effusion. He was given a dose of lasix with good urine output and the decision was made to admit him for further management.? Incidentally he was noted to be COVID positive.? He denies any cough, fever, chills, body aches, recent sick contacts.? He has received vaccination with Moderna including two booster shots. Hospital course 86 year old female with history of asthma, HTN, HFpEF who presents with SOB found to have heart failure and incidentally was COVID positive JOSI on chronic kidney disease stage 3. Creat improving slowly from 2.04 to 1.68 likely due to tubular injury , patient was followed closely by Nephrology they recommend to hold valsartan and Lasix, repeat labs next week and outpatient follow-up with Nephrology. Acute on chronic HFpEF.? Appears euvolemic continue to hold Lasix as above Mild hyperkalemia potassium 5.2 due to acute renal disease recommend to hold valsartan, check BMP on 04/30 Acute hypoxic respiratory failure due to COVID 19, on admission patient noted to have stable oxygenation later noted to have significant shortness of breath with ambulation, therefore placed on oxygen chest x-ray from 04/26 showed moderate right and small left pleural effusion with patchy bibasilar airspace opacities differential include atelectasis aspiration or infection, imaging study showed patient has chronic effusion, perfusion scan obtained it was a nondiagnostic study, therefore bilateral lower extremity Doppler study obtained that showed no DVT, therefore less likely patient has pulmonary emboli,,no fevers, no cough, leukocytosis likely due to steroids, patient treated with IV steroids and antibiotics and now since patient oxygenation is stable,he is being discharged to rehab facility on by mouth steroids and doxycycline for 5 days He is recommended to continue home inhalers for underlying history of asthma patient is being discharged to rehab for deconditioning, Acute on chronic normocytic anemia Hematocrit dropped to 26.6 from 30.8 subsequently improved to 27.2 with hemoglobins 9, no GI bleed noted, no hematemesis ,no melena likley due to JOSI and acute infection s/p 1 dose of Procrit ,follow cbc. urinary retention. continue cardura DM hold metformin due to elevated creatinine, noted to have elevated blood sugars likely due to steroids, continue insulin sliding scale and diabetic diet HTN Continue diltiazem, and metoprolol, follow BP and resume valsartan and Lasix once renal function improves HLD Continue statin Chronic pain Continue Lidoderm patch, buprenorphine patch Chronic persistent Asthma no acute exacerbation Continue home inhalers Time Spent with Patient Time attestation: Total time spent providing and/or coordinating discharge services: Discharge coordination time: Greater than 30 minutes Quality: Safe Use of Opioids Does Pt have an Active Cancer Diagnosis on the Problem List?: No Quality: Stroke Does the patient have a stroke diagnosis?: No Physical Exam Vital Signs: Vital Signs: Last Vital Signs Temp 97.8 F 04/28/22 11:18 Pulse 72 04/28/22 11:18 Resp 18 04/28/22 11:18 BP 124/51 L 04/28/22 11:18 Pulse Ox 96 04/28/22 11:18 O2 Del Method 04/28/22 11:18 O2 Flow Rate 3 04/28/22 11:18 FiO2 93 04/26/22 19:21 BMI result Body Mass Index 31.5 Const: Other: General awake alert x3 resting comfortably in no acute distress.? Necks supple no JVD. CVS? regular rate rhythm, Respiratory lungs clear to auscultation,diminished at bases, no respiratory distress, no wheeze, no rhonchi, no rales. Gastrointestinal abdomen soft, nontender, bowel sounds audible, no guarding , no rigidity. Extremities no? edema. Neuro nonfocal moving all 4 extremity speech clear. Skin no rash Psych appropriate affect DS: Data Data Completed and Pending Labs on day of discharge: Laboratory Results - last 24 hr 04/27/22 04/27/22 04/28/22 16:42 21:41 06:39 WBC 16.8 H RBC 2.91 L Hgb 9.0 L Hct 27.2 L MCV 93.5 MCH 30.9 MCHC 33.1 RDW 13.9 Plt Count 383 MPV 9.6 Absolute Nucleated RBC 0.000 Nucleated RBC % (auto) 0.0 Sodium Potassium Chloride Carbon Dioxide Anion Gap BUN Creatinine Estim Creat Clear Calc Estimated GFR POC Glucose 258 H 300 H Random Glucose Calcium Iron TIBC % Saturation Unsat Iron Binding 04/28/22 04/28/22 04/28/22 06:39 07:28 11:20 WBC RBC Hgb Hct MCV MCH MCHC RDW Plt Count MPV Absolute Nucleated RBC Nucleated RBC % (auto) Sodium 138 Potassium 5.2 H Chloride 103 Carbon Dioxide 24 Anion Gap 16 BUN 67 H Creatinine 1.68 H Estim Creat Clear Calc 39.6 Estimated GFR 39 POC Glucose 210 H 224 H Random Glucose 225 H D Calcium 8.9 Iron 26 L TIBC 227 L % Saturation 11 L Unsat Iron Binding 201 Discharge Plan Discharge Anticipated Discharge Date/Time: 04/27/22 13:49 Patient Disposition: [facility] [place] Discharge Diagnosis: Acute hypoxic respiratory failure due to COVID-19 Acute renal failure Acute on chronic heart failure with preserved EF Acute on chronic normocytic anemia Referrals: [facility] [Other] - 1 Week Adi Champagne MD [Primary Care Provider] - 1 Week Discharge Medications: New atorvastatin 40 mg Tablet 40 mg PO DAILY Qty: 30 0RF ipratropium-albuterol 0.5 mg-3 mg(2.5 mg base)/3 mL Solution For Nebulization 3 ml inhalation Q6H PRN (Reason: Wheezing) Qty: 90 0RF docusate sodium 100 mg Capsule 100 mg PO DAILY PRN (Reason: Constipation) Qty: 30 0RF doxycycline hyclate 100 mg capsule 100 mg PO DAILY Qty: 10 0RF prednisone 10 mg tablet 10 mg PO DAILY Qty: 7 0RF insulin lispro [Humalog U-100 Insulin] 100 unit/mL Solution See Protocol subcut QIDACHS Qty: 10 0RF Protocol: Insulin Correction Scale Less than or equal to 110 ---- Give (units): 0 111 to 150 Give (units): 0 151 to 200 Give (units): 2 201 to 250 Give (units): 4 251 to 300 Give (units): 6 301 to 350 Give (units): 8 Greater than 350 Give (units): 10 Call MD if Blood Glucose > : 350 Continued lidocaine 5 % Adhesive Patch,Medicated 1 patch TOPICAL DAILY PRN (Reason: Pain (Scale Score 1-3)) Rx Instructions: leave on most painful area for up to 12 hrs diltiazem HCl 240 mg Tablet Extended Release 24 Hr 240 mg PO DAILY metoprolol tartrate 25 mg tablet 1 tab PO BID buprenorphine 20 mcg/hour Patch Weekly 1 patch TRANSDERMAL SA@0900 aspirin 81 mg Tablet,Delayed Release (Dr/Ec) 81 mg PO DAILY zafirlukast 20 mg Tablet 20 mg PO BID loratadine 10 mg Tablet 10 mg PO DAILY doxazosin 2 mg Tablet 2 mg PO DAILY Asmanex Twisthaler 220 mcg/ actuation (60) Aerosol Powdr Breath Activated 2 inh INHALATION BID omeprazole 20 mg Capsule,Delayed Release(Dr/Ec) 20 mg PO DAILY@0630 Combivent Respimat 20-100 mcg/actuation Mist 1 puff INHALATION Q6H PRN (Reason: Wheezing) multivitamin Tablet 1 tab PO DAILY Discontinued atorvastatin 80 mg Tablet 40 mg PO DAILY furosemide 20 mg Tablet 20 mg PO DAILY metformin 500 mg Tablet 500 mg PO BID valsartan 320 mg Tablet 320 mg PO DAILY Discharge Orders: Discharge Order (Routine); Ordered 04/28/22 Ordered By: Ivory Lacey Diet: Diabetic diet Activity on Discharge: As tolerated Stand Alone Forms: Patient Portal Discharge page Care Plan Goals: Acute hypoxic respiratory failure due to COVID-19, noted to have hypoxia with ambulation continue prednisone as directed and doxycycline Acute kidney injury improving check BMP on Monday 04/30, late follow-up with nephrology continue to hold Lasix and valsartan Leukocytosis due to steroids Diabetes mellitus metformin held due to acute kidney injury use insulin sliding scale elevated blood sugars due to steroids History of CHF stable diuretics held due to JOSI Health Concerns: BMP on Saturday Plan of Treatment: Outpatient follow-up with primary care physician and outpatient follow-up with Nephrology in 7-10 days Assessment: As above
[2022-04-28 14:43] LABS: COVID-19 Test Negative (Negative)
[2022-04-28 16:00] VITALS: BP 152/52; PULSE 84; RESP 16; TEMP 36.6; O2SAT 92
[2022-04-28 16:55] LABS: Glucose, Whole Blood 290 mg/dL (60-115)
== END 2022-04-28 18:05 | disposition skilled nursing facility (03) | DRG 291 ==
LOC: HO.ED 10:55 → HO.EDOVER 13:11 → HO.IMC 04-22 18:21
PROVIDERS: Nurse Practitioner Acute Care; Physician Assistant; Admitting Provider Physician Assistant Medical; Emergency Provider Emergency Medicine; PCP Internal Medicine Medical Oncology; Visit Provider Hospitalist
DX: I13.0 Hypertensive heart and chronic kidney disease with heart failure and stage 1 through stage 4 chronic kidney disease, or unspecified chronic kidney disease (principal); I50.33 Acute on chronic diastolic (congestive) heart failure; U07.1 COVID-19; N17.0 Acute kidney failure with tubular necrosis; J96.01 Acute respiratory failure with hypoxia; E87.20 Acidosis, unspecified; E78.5 Hyperlipidemia, unspecified; G89.29 Other chronic pain; Z66 Do not resuscitate; E87.5 Hyperkalemia; J45.20 Mild intermittent asthma, uncomplicated; D63.1 Anemia in chronic kidney disease; D64.9 Anemia, unspecified; R33.9 Retention of urine, unspecified; M19.90 Unspecified osteoarthritis, unspecified site; J43.9 Emphysema, unspecified; N18.30 Chronic kidney disease, stage 3 unspecified; E11.22 Type 2 diabetes mellitus with diabetic chronic kidney disease; Z87.891 Personal history of nicotine dependence; Z79.4 Long term (current) use of insulin; Z79.899 Other long term (current) drug therapy
CPT/HCPCS: 36415; 71045; 78580; 80048; 80076; 81003; 82947; 83540; 83605; 83735; 83880; 84145; 84484; 85025; 85027; 85610; 85730; 87040; 87502; 87635; 93005; 93970; 94640; 97162; 99285; A9540; C1758; J0885; J1650; J1940; J2920

== ENCOUNTER 2022-05-29 07:36 | Outpatient (REF) | payer MEDICARE, SELFPAY ==
[2022-05-29 07:56] LABS: MANUAL DIFF FLAG NO
[2022-05-29 08:11] LABS: Basophils Absolute Auto 0.1 X10*3/uL (0.0-0.2); Basophils Percent Auto 0.5 % (0-2); Eosinophils Absolute Auto 0.7 X10*3/uL (0.0-0.4); Eosinophils Percent Auto 6.2 % (0-4); Hematocrit 30.3 % (42.0-52.0); Hemoglobin 9.8 g/dl (14.0-18.0); Imm Gran Abs Auto 0.06 X10*3/uL (0.00-0.03); Imm Gran Pct Auto 0.5 % (0.0-0.4); Lymphocytes Absolute Auto 2.4 X10*3/uL (1.2-4.9); Lymphocytes Percent Auto 21.1 % (20-40); Mean Corpuscular HGB Conc 32.3 g/dl (31.0-36.0); Mean Corpuscular Hemoglobin 29.9 pg (27.0-33.0); Mean Corpuscular Volume 92.4 fL (80.0-98.0); Mean Platelet Volume 9.2 fL (9.4-12.4); Neutrophils Absolute Auto 7.1 x10*3/uL (2.0-8.3); Neutrophils Percent Auto 62.7 % (45-73); Platelet Count 427 X10*3/uL (160-400); Red Blood Count 3.28 X10*6/uL (4.60-5.80); White Blood Count 11.4 X10*3/uL (4.8-10.8)
[2022-05-29 09:05] LABS: Alanine Aminotransferase 25 U/L (0-40); Albumin Level 3.2 g/dL (3.5-5.0); Alkaline Phosphatase 112 U/L (39-117); Anion Gap 13 (12-20); Aspartate Amino Transferase 16 U/L (5-37); Bilirubin Total 0.5 mg/dL (0.0-1.0); Blood Urea Nitrogen 22 mg/dL (9-16); Calcium 9.2 mg/dL (8.4-10.2); Carbon Dioxide 24 mmol/L (22-29); Chloride 105 mmol/L (96-108); Estimated Glomerular Filt Rate > 60; Glucose Random 157 mg/dL (60-115); Potassium 4.6 mmol/L (3.3-5.1); Prostate Specific Antigen 0.35 ng/mL (<0.05-4.0); Sodium 137 mmol/L (135-145); Total Protein 6.3 g/dL (6.5-8.0)
[2022-05-29 09:38] LABS: B Type Natriuretic Peptide 143 pg/mL (<100)
== END 2022-05-29 07:37 | disposition home or self-care (01) ==
LOC: HO.LAB 07:36
PROVIDERS: PCP Internal Medicine Medical Oncology; Visit Provider Internal Medicine Medical Oncology
DX: I10 Essential (primary) hypertension (principal); E78.2 Mixed hyperlipidemia; N40.0 Benign prostatic hyperplasia without lower urinary tract symptoms; J45.909 Unspecified asthma, uncomplicated; Z12.5 Encounter for screening for malignant neoplasm of prostate
CPT/HCPCS: 36415; 80053; 83880; 84153; 85025

== ENCOUNTER → 2022-06-14 14:11 | Outpatient (BNVA) | payer MEDICARE, SELFPAY | PROVIDERS: PCP Internal Medicine Medical Oncology; Referring Provider Internal Medicine Medical Oncology; Visit Provider Nurse Practitioner Family | DX: R06.02 Shortness of breath (principal); I50.30 Unspecified diastolic (congestive) heart failure | CPT/HCPCS: 99212 ==

== ENCOUNTER 2022-06-18 07:57 | Outpatient (REF) | payer MEDICARE, SELFPAY ==
--- NOTE | ~2022-06-18 | XR_ITS ---
EXAMINATION: XR CHEST CLINICAL INFORMATION: Shortness of breath COMPARISON: None TECHNIQUE: 2 views of the chest were obtained. FINDINGS: There is bilateral blunting of CP angle from pleural effusion and underlying compressive atelectasis. Rest of the lungs are clear. The heart size and pulmonary vascularity is normal. No gross bony abnormality seen. XR/XR chest 2V IMPRESSION: Bilateral pleural effusions with underlying compressive atelectasis. .
[2022-06-18 08:11] LABS: MANUAL DIFF FLAG NO
[2022-06-18 09:10] LABS: Basophils Absolute Auto 0.1 X10*3/uL (0.0-0.2); Basophils Percent Auto 0.6 % (0-2); Eosinophils Absolute Auto 0.7 X10*3/uL (0.0-0.4); Eosinophils Percent Auto 5.7 % (0-4); Hematocrit 31.6 % (42.0-52.0); Hemoglobin 10.1 g/dl (14.0-18.0); Imm Gran Abs Auto 0.05 X10*3/uL (0.00-0.03); Imm Gran Pct Auto 0.4 % (0.0-0.4); Lymphocytes Percent Auto 23.9 % (20-40); Mean Corpuscular Hemoglobin 29.5 pg (27.0-33.0); Mean Corpuscular Volume 92.4 fL (80.0-98.0); Mean Platelet Volume 10.2 fL (9.4-12.4); Monocytes Absolute Auto 1.1 X10*3/uL (0.1-1.2); Monocytes Percent Auto 8.7 % (2-11); Neutrophils Absolute Auto 7.5 x10*3/uL (2.0-8.3); Neutrophils Percent Auto 60.7 % (45-73); Platelet Count 449 X10*3/uL (160-400); Red Blood Count 3.42 X10*6/uL (4.60-5.80); Red Cell Distribution Width 15.6 % (11.0-16.0); White Blood Count 12.4 X10*3/uL (4.8-10.8)
[2022-06-18 09:42] LABS: Alanine Aminotransferase 17 U/L (0-40); Albumin Level 3.3 g/dL (3.5-5.0); Alkaline Phosphatase 119 U/L (39-117); Anion Gap 14 (12-20); Aspartate Amino Transferase 14 U/L (5-37); Bilirubin Total 0.4 mg/dL (0.0-1.0); Blood Urea Nitrogen 21 mg/dL (9-16); Calcium 9.2 mg/dL (8.4-10.2); Carbon Dioxide 24 mmol/L (22-29); Chloride 108 mmol/L (96-108); Estimated Glomerular Filt Rate > 60; Glucose Random 163 mg/dL (60-115); Potassium 4.8 mmol/L (3.3-5.1); Sodium 141 mmol/L (135-145); Total Protein 6.4 g/dL (6.5-8.0)
[2022-06-18 09:44] LABS: Anion Gap 14 (12-20); Blood Urea Nitrogen 21 mg/dL (9-16); Calcium 9.1 mg/dL (8.4-10.2); Carbon Dioxide 24 mmol/L (22-29); Chloride 107 mmol/L (96-108); Estimated Glomerular Filt Rate > 60; Glucose Random 162 mg/dL (60-115); Potassium 4.8 mmol/L (3.3-5.1); Sodium 140 mmol/L (135-145)
[2022-06-18 09:45] LABS: B Type Natriuretic Peptide 119 pg/mL (<100)
== END 2022-06-18 07:58 | disposition home or self-care (01) ==
LOC: HO.XRAY 07:57
PROVIDERS: Absent Provider Internal Medicine Medical Oncology; PCP Internal Medicine Medical Oncology; Visit Provider Nurse Practitioner Family
DX: R06.02 Shortness of breath (principal); I10 Essential (primary) hypertension; J45.909 Unspecified asthma, uncomplicated; I25.10 Atherosclerotic heart disease of native coronary artery without angina pectoris; E66.9 Obesity, unspecified
CPT/HCPCS: 36415; 71046; 80048; 80053; 83880; 85025

== ENCOUNTER → 2022-07-24 09:53 | Outpatient (BNVA) | payer MEDICARE, SELFPAY | PROVIDERS: PCP Internal Medicine Medical Oncology; Visit Provider Internal Medicine | DX: J44.9 Chronic obstructive pulmonary disease, unspecified (principal); J30.9 Allergic rhinitis, unspecified; R06.02 Shortness of breath; I50.30 Unspecified diastolic (congestive) heart failure | CPT/HCPCS: 99202 ==

== ENCOUNTER → 2022-07-30 14:33 | Outpatient (BNVA) | payer MEDICARE, SELFPAY | PROVIDERS: PCP Internal Medicine Medical Oncology; Referring Provider Internal Medicine Medical Oncology; Visit Provider Internal Medicine Cardiovascular Disease | DX: I50.30 Unspecified diastolic (congestive) heart failure (principal); R06.02 Shortness of breath | CPT/HCPCS: 99212 ==

== ENCOUNTER 2022-08-14 10:42 | Outpatient (REF) | payer MEDICARE, SELFPAY ==
--- NOTE | 2022-08-14 15:22 | PFT_ITS ---
INDICATION: COPD. SPIROMETRY: FEV1 to FVC of 72% post bronchodilator 66% pre bronchodilator with FEV1 of 2.3 L, which is 81% predicted and FVC of 3.19 L, which is 78% predicted. No significant response to bronchodilator is noted. Although, there was improvement in FEV1 by 11%. Maximum voluntary ventilation is 71% of predicted. LUNG VOLUMES: Total lung capacity 76% predicted. DIFFUSION CAPACITY: DLCO of 52% predicted. COMPARISONS: None. INTERPRETATION: There appears to be reversible obstructive ventilatory defects suggesting degree of asthma. 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 Significant small airway disease. There is a mild decrease in the maximum voluntary ventilation secondary to likely deconditioning. Lung volumes also demonstrate restrictive ventilatory defects consistent with mild restrictive lung disease; therefore, underlying parenchymal condition seemed to be considered as well. In addition, there is a moderate to severe decrease in capacity suggesting underlying emphysema and other parenchymal lung conditions should also be considered. Correction for hemoglobin also be important. Clinical correlation warranted and/or parenchymal lung conditions. Timur Gee MD MR/MODL / [id number]
== END 2022-08-14 10:43 | disposition home or self-care (01) ==
LOC: HO.RESP 10:42
PROVIDERS: PCP Internal Medicine Medical Oncology; Visit Provider Internal Medicine
DX: J44.9 Chronic obstructive pulmonary disease, unspecified (principal); R06.02 Shortness of breath; J30.9 Allergic rhinitis, unspecified
CPT/HCPCS: 94060; 94727; 94729

== ENCOUNTER 2022-09-24 09:45 | Outpatient (REF) | payer MEDICARE, SELFPAY ==
--- NOTE | ~2022-09-24 | XR_ITS ---
EXAMINATION: XR CHEST CLINICAL INFORMATION: Diabetes, chronic kidney disease. COMPARISON: Chest 06/18/2022 TECHNIQUE: 2 views of the chest were obtained. FINDINGS: The lungs are well-expanded without acute pneumonic process. Heart size and progress clarities normal. There is increased vascular markings but no camryn congestion seen. No gross bony abnormality. XR/XR chest 2V IMPRESSION: Mild increased pulmonary vascular markings but no camryn congestion seen. Significant improvement in bilateral pleural effusion from 06/18/2022.
== END 2022-09-24 09:46 | disposition home or self-care (01) ==
LOC: HO.XRAY 09:45
PROVIDERS: PCP Internal Medicine Medical Oncology; Visit Provider Internal Medicine Nephrology
DX: I12.9 Hypertensive chronic kidney disease with stage 1 through stage 4 chronic kidney disease, or unspecified chronic kidney disease (principal); E11.22 Type 2 diabetes mellitus with diabetic chronic kidney disease; N18.9 Chronic kidney disease, unspecified; J44.9 Chronic obstructive pulmonary disease, unspecified; J30.9 Allergic rhinitis, unspecified; R06.02 Shortness of breath
CPT/HCPCS: 71046; 94618; 99212

== ENCOUNTER 2022-10-09 07:56 | Outpatient (REF) | payer MEDICARE, SELFPAY ==
[2022-10-09 08:10] LABS: MANUAL DIFF FLAG NO
[2022-10-09 09:08] LABS: Basophils Absolute Auto 0.1 X10*3/uL (0.0-0.2); Basophils Percent Auto 0.6 % (0-2); Eosinophils Absolute Auto 0.7 X10*3/uL (0.0-0.4); Eosinophils Percent Auto 6.8 % (0-4); Hematocrit 31.1 % (42.0-52.0); Hemoglobin 10.1 g/dl (14.0-18.0); Imm Gran Abs Auto 0.06 X10*3/uL (0.00-0.03); Imm Gran Pct Auto 0.6 % (0.0-0.4); Lymphocytes Absolute Auto 2.8 X10*3/uL (1.2-4.9); Lymphocytes Percent Auto 27.8 % (20-40); Mean Corpuscular HGB Conc 32.5 g/dl (31.0-36.0); Mean Corpuscular Hemoglobin 30.6 pg (27.0-33.0); Mean Corpuscular Volume 94.2 fL (80.0-98.0); Mean Platelet Volume 9.8 fL (9.4-12.4); Monocytes Absolute Auto 0.9 X10*3/uL (0.1-1.2); Monocytes Percent Auto 8.6 % (2-11); Neutrophils Absolute Auto 5.6 x10*3/uL (2.0-8.3); Neutrophils Percent Auto 55.6 % (45-73); Platelet Count 344 X10*3/uL (160-400); Red Cell Distribution Width 15.6 % (11.0-16.0); White Blood Count 10.1 X10*3/uL (4.8-10.8)
[2022-10-09 09:14] LABS: Estimated Average Glucose 131 mg/dL; Hemoglobin A1C 122.9263 umol/L; Hemoglobin A1c % 6.2 %
[2022-10-09 09:59] LABS: Alanine Aminotransferase 12 U/L (0-40); Albumin Level 3.4 g/dL (3.5-5.0); Alkaline Phosphatase 105 U/L (39-117); Anion Gap 13 (12-20); Aspartate Amino Transferase 13 U/L (5-37); Bilirubin Total 0.5 mg/dL (0.0-1.0); Blood Urea Nitrogen 37 mg/dL (9-16); Carbon Dioxide 24 mmol/L (22-29); Chloride 109 mmol/L (96-108); Cholesterol 113 mg/dL; Estimated Glomerular Filt Rate 44; Glucose Fasting 153 mg/dL (60-99); HDL Cholesterol 31 mg/dL; LDL Cholesterol Calculated 71 mg/dl; Potassium 5.3 mmol/L (3.3-5.1); Sodium 141 mmol/L (135-145); Triglycerides 58 mg/dL
[2022-10-09 10:04] LABS: Prostate Specific Antigen 0.33 ng/mL (<0.05-4.0)
== END 2022-10-09 07:57 | disposition home or self-care (01) ==
LOC: HO.LAB 07:56
PROVIDERS: PCP Internal Medicine Medical Oncology; Visit Provider Internal Medicine Medical Oncology
DX: I10 Essential (primary) hypertension (principal); E78.2 Mixed hyperlipidemia; N40.0 Benign prostatic hyperplasia without lower urinary tract symptoms; J45.909 Unspecified asthma, uncomplicated; E11.9 Type 2 diabetes mellitus without complications; I25.10 Atherosclerotic heart disease of native coronary artery without angina pectoris; Z12.5 Encounter for screening for malignant neoplasm of prostate
CPT/HCPCS: 36415; 80053; 80061; 83036; 84153; 85025

== ENCOUNTER → 2022-12-24 09:20 | Outpatient (BNVA) | payer MEDICARE, SELFPAY | PROVIDERS: PCP Internal Medicine Medical Oncology; Visit Provider Internal Medicine | DX: J44.9 Chronic obstructive pulmonary disease, unspecified (principal); J30.9 Allergic rhinitis, unspecified; R06.02 Shortness of breath; Z79.899 Other long term (current) drug therapy | CPT/HCPCS: 99212 ==

== ENCOUNTER 2023-01-09 07:19 | Outpatient (REF) | payer MEDICARE, SELFPAY ==
[2023-01-09 07:33] LABS: MANUAL DIFF FLAG NO
[2023-01-09 08:50] LABS: Basophils Absolute Auto 0.1 X10*3/uL (0.0-0.2); Basophils Percent Auto 0.6 % (0-2); Eosinophils Absolute Auto 0.8 X10*3/uL (0.0-0.4); Eosinophils Percent Auto 8.3 % (0-4); Hematocrit 31.8 % (42.0-52.0); Hemoglobin 9.9 g/dl (14.0-18.0); Imm Gran Abs Auto 0.09 X10*3/uL (0.00-0.03); Imm Gran Pct Auto 0.9 % (0.0-0.4); Lymphocytes Percent Auto 31.2 % (20-40); Mean Corpuscular HGB Conc 31.1 g/dl (31.0-36.0); Mean Corpuscular Hemoglobin 30.2 pg (27.0-33.0); Mean Platelet Volume 9.6 fL (9.4-12.4); Monocytes Absolute Auto 0.9 X10*3/uL (0.1-1.2); Neutrophils Absolute Auto 4.8 x10*3/uL (2.0-8.3); Platelet Count 383 X10*3/uL (160-400); Red Blood Count 3.28 X10*6/uL (4.60-5.80); Red Cell Distribution Width 14.7 % (11.0-16.0); White Blood Count 9.5 X10*3/uL (4.8-10.8)
[2023-01-09 09:09] LABS: B Type Natriuretic Peptide 44 pg/mL (<100)
[2023-01-09 09:21] LABS: Alanine Aminotransferase 13 U/L (0-40); Albumin Level 3.5 g/dL (3.5-5.0); Alkaline Phosphatase 101 U/L (39-117); Anion Gap 15 (12-20); Aspartate Amino Transferase 14 U/L (5-37); Bilirubin Total 0.5 mg/dL (0.0-1.0); Blood Urea Nitrogen 35 mg/dL (9-16); Calcium 9.3 mg/dL (8.4-10.2); Carbon Dioxide 20 mmol/L (22-29); Chloride 109 mmol/L (96-108); Cholesterol 94 mg/dL; Estimated Glomerular Filt Rate 45; Glucose Fasting 110 mg/dL (60-99); HDL Cholesterol 35 mg/dL; LDL Cholesterol Calculated 48 mg/dl; Potassium 5.6 mmol/L (3.3-5.1); Sodium 138 mmol/L (135-145); Total Protein 6.7 g/dL (6.5-8.0); Triglycerides 55 mg/dL
== END 2023-01-09 07:20 | disposition home or self-care (01) ==
LOC: HO.LAB 07:19
PROVIDERS: PCP Internal Medicine Medical Oncology; Visit Provider Internal Medicine Medical Oncology
DX: I25.118 Atherosclerotic heart disease of native coronary artery with other forms of angina pectoris (principal); I10 Essential (primary) hypertension; E78.2 Mixed hyperlipidemia; E11.9 Type 2 diabetes mellitus without complications; I25.10 Atherosclerotic heart disease of native coronary artery without angina pectoris
CPT/HCPCS: 36415; 80053; 80061; 83880; 85025

== ENCOUNTER 2023-01-28 10:06 | Outpatient (AMB) | payer MEDICARE, SELFPAY ==
[2023-01-28 10:09] VITALS: BP 144/84; PULSE 96; BMI 29.9
--- NOTE | 2023-01-28 10:09 | A.OFFVIS_ITS ---
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 Allergies No Known Allergies Allergy (Verified 12/24/22 09:49) Medication List - Last Reconciled 01/28/23 by Jose A Boone MD atorvastatin 80 mg PO DAILY diltiazem HCl ER 240 mg PO DAILY docusate sodium 100 mg PO DAILY PRN doxazosin 2 mg PO DAILY furosemide (Lasix) 20 mg PO DAILY ipratropium-albuterol 20-100 mcg/actuation (Combivent Respimat) 1 puff inhalation Q6H PRN loratadine 10 mg PO DAILY metformin 500 mg PO DAILY mometasone (Asmanex Twisthaler) 2 inhalations inhalation BID omeprazole 20 mg PO DAILY@0630 tramadol 50 mg PO DAILY valsartan 320 mg PO DAILY vitamin B complex (B Complex-Vitamin B12 tablet) 1 tab PO DAILY vitamins A,C,D-buuc-jvmjyo 4,296 mcg-226 mg-90 mg (PreserVision AREDS) 1 cap PO BID zafirlukast 20 mg PO BID HPI HPI Comments History of Present Illness Details Adi comes for follow-up. He continues to have significant exertional shortness of breath. He was told that he does not significant pulmonary disease although reviewed the pulmonary function test which is suggestive of significant airway as well as parenchymal disease suggestive of COPD. His BNP is normalized by last blood test couple weeks ago with BNP of 44. He is currently taking Lasix 20 mg daily. He continues to have leg edema bilaterally. He has limited exercise activity and uses a walker. Does not exercise much as he gets short of breath. Denies any orthopnea, PND. No abdominal distension. No sudden weight gain. No exertional chest pain. Chronic kidney disease with elevated creatinine at 1.5 range. [facility] Medical History Allergic rhinitis Arthritis Chest pain COPD (chronic obstructive pulmonary disease) Diabetes Diastolic heart failure Elevated troponin Emphysema of lung HTN (hypertension) Hypertension Varicose veins of right lower extremity with inflammation Surgical History History of knee replacement (09/30/12) Family History Father No problems noted. Mother Cancer Brother No problems noted. Daughter No problems noted. Social History Household Members: None Housing: House Do you presently have visiting nurse or other home services: Yes Alcohol intake: current Alcohol intake frequency: holidays/special occasions only Patient Tobacco Use Status: Former Tobacco user Quit Date: 30 years ago Tobacco use type: Cigarette Advance Directives Date on File: 08/11/21 service: Yes Current occupational status: retired Review of Systems Const Denies chills, Denies fatigue, Denies fever(s), Denies frequent falls, Denies weakness, Denies weight gain and Denies weight loss ENT Denies dizziness Card Denies chest pain, Denies leg edema, Denies lightheadedness, Denies palpitation s, Denies dyspnea, Denies dyspnea on exertion, Denies orthopnea and Denies other (loss of consciousness) Resp Denies cough, Denies dyspnea and Denies dyspnea on exertion GI Denies hematochezia and Denies change in stool character Musc Denies abnormal gait, Denies muscle weakness, Denies numbness, Denies radiating pain into limb and Denies tingling Neuro Denies abnormal gait, Denies dizziness, Denies frequent falls, Denies numbness, Denies tingling and Denies weakness Endo Denies fatigue and Denies palpitations Physical Exam Vital Signs: Last Vital Signs Pulse 96 01/28/23 10:09 BP 144/84 H 01/28/23 10:09 BMI result Body Mass Index 29.9 Const General: cooperative, comfortable and no acute distress Nutritional Appearance: other (Frail elderly man) Orientation/consciousness: patient oriented x3 Limitations: ambulation with walker Neck Neck: Yes normal visual inspection Resp Other: Increased work of breathing Effort & Inspection: abnormal respiratory pattern and tachypneic Auscultation: clear to auscultation bilaterally, no crackles, no rales, no rhonchi and no wheezes Cardio Jugular venous distension: no JVD Rate: regular rate Rhythm: regular rhythm Heart sounds: S1 normal heart sound present, S2 normal heart sound present, no gallops, Murmur heart sound present systolic early, decrescendo and crescendo and no rubs GI Inspection: Yes normal to inspection Neuro General: patient oriented x3 Extrem General: Yes normal to inspection and No no pedal edema Psych Appearance: grossly normal Mental Status: mental status grossly normal Speech and movement: Normal speech and movement present Assessment & Plan Assessment & Plan (1) Diastolic heart failure: Comment: Patient has diagnosis of diastolic congestive heart failure, Recently treated for an acute on chronic congestive heart failure and improved with diuresis. 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 I ADVISED HIM TO CONTINUE FOLLOW-UP WITH THE CARDIOLOGY SERVICE. Code(s): I50.30 - Unspecified diastolic (congestive) heart failure Plan: Patient with persistent significant shortness of breath which appears to me related deconditioning a pulmonary parenchymal disease. He also has diastolic dysfunction. Will repeat echocardiogram. Clinically has mild leg edema but does not appear to have any significant central venous congestion. Given his history of diastolic heart failure, will start him on Jardiance 10 mg daily. Follow-up basic metabolic profile in 2 weeks time. Advise low-salt diet. Daily weight monitoring avoidance of salt loading was discussed. Continue to optimize his pulmonary function. Continue to maintain activity level as tolerated. Will follow up in the clinic in 6 months time, sooner p.r.n.. Thank you for allowing me to partake in his care Orders: Orders Basic Metabolic Panel 2 Weeks I50.30 - Unspecified diastolic (congestive) heart failure Medications: New empagliflozin (Jardiance) 10 mg PO DAILY 30 tabs 5RF Coding Level of Care Code Est Pt Level 4 (12261) Diagnoses Diastolic heart failure I50.30
== END 2023-01-28 10:32 | disposition home or self-care (01) ==
PROVIDERS: Visit Provider Internal Medicine Cardiovascular Disease
DX: I50.30 Unspecified diastolic (congestive) heart failure (principal)
CPT/HCPCS: 99214

== ENCOUNTER → 2023-01-28 10:06 | Outpatient (BNVA) | payer MEDICARE, SELFPAY | PROVIDERS: Visit Provider Internal Medicine Cardiovascular Disease | DX: I11.0 Hypertensive heart disease with heart failure (principal); I50.30 Unspecified diastolic (congestive) heart failure; J43.9 Emphysema, unspecified; Z87.891 Personal history of nicotine dependence | CPT/HCPCS: 99212 ==

== ENCOUNTER 2023-02-11 07:31 | Outpatient (REF) | payer MEDICARE, SELFPAY ==
[2023-02-11 08:11] LABS: Hematocrit 30.2 % (42.0-52.0); Hemoglobin 9.8 g/dl (14.0-18.0); Mean Corpuscular HGB Conc 32.5 g/dl (31.0-36.0); Mean Corpuscular Volume 95.6 fL (80.0-98.0); Mean Platelet Volume 9.4 fL (9.4-12.4); Platelet Count 318 X10*3/uL (160-400); Red Blood Count 3.16 X10*6/uL (4.60-5.80); Red Cell Distribution Width 14.7 % (11.0-16.0); White Blood Count 8.1 X10*3/uL (4.8-10.8)
[2023-02-11 08:31] LABS: B Type Natriuretic Peptide 62 pg/mL (<100)
[2023-02-11 10:44] LABS: Anion Gap 13 (12-20); Blood Urea Nitrogen 33 mg/dL (9-16); Calcium 9.2 mg/dL (8.4-10.2); Carbon Dioxide 22 mmol/L (22-29); Chloride 108 mmol/L (96-108); Estimated Glomerular Filt Rate 44; Glucose Random 168 mg/dL (60-115); Potassium 4.9 mmol/L (3.3-5.1); Sodium 138 mmol/L (135-145)
[2023-02-11 10:46] LABS: Alanine Aminotransferase 12 U/L (0-40); Albumin Level 3.4 g/dL (3.5-5.0); Alkaline Phosphatase 95 U/L (39-117); Anion Gap 11 (12-20); Aspartate Amino Transferase 13 U/L (5-37); Bilirubin Total 0.4 mg/dL (0.0-1.0); Blood Urea Nitrogen 33 mg/dL (9-16); Calcium 9.4 mg/dL (8.4-10.2); Carbon Dioxide 24 mmol/L (22-29); Chloride 108 mmol/L (96-108); Estimated Glomerular Filt Rate 45; Glucose Random 170 mg/dL (60-115); Sodium 138 mmol/L (135-145); Total Protein 6.4 g/dL (6.5-8.0)
== END 2023-02-11 07:32 | disposition home or self-care (01) ==
LOC: HO.LAB 07:31
PROVIDERS: Absent Provider Internal Medicine Medical Oncology; PCP Internal Medicine Medical Oncology; Visit Provider Internal Medicine Cardiovascular Disease
DX: I11.0 Hypertensive heart disease with heart failure (principal); I50.30 Unspecified diastolic (congestive) heart failure; I25.118 Atherosclerotic heart disease of native coronary artery with other forms of angina pectoris; D63.8 Anemia in other chronic diseases classified elsewhere
CPT/HCPCS: 36415; 80048; 80053; 83880; 85027